=== PATIENT | female | born 1955 | race Caucasian/White ===

== ENCOUNTER 2024-12-09 13:14 | Inpatient (IN) | payer MEDICARE, SELFPAY ==
[2024-12-09] VITALS (20 sets, daily range): BP systolic 82–134; BP diastolic 33–97; PULSE 81–117; RESP 18–26; TEMP 36.6–37.1; O2SAT 95–100; BMI 25.2
--- NOTE | ~2024-12-09 | CT_ITS ---
EXAMINATION: CTA chest PE protocol DATE: 12/13/2024 16:33 CDT INDICATION: Intermediate probability for pulmonary embolus TECHNIQUE: Computed tomographic angiography (CTA) of the chest was performed with 100 mL Omnipaque-35 0 intravenous contrast. The dose-length product was 273.53 mGy-cm. Maximum intensity projection 3D-re constructions of the aorta and other arteries were constructed by the technologist on a separate work station. COMPARISON: None. Reference is made to a VQ scan dated 12/10/2024 as well as a noncontrast enhanced CT of the chest dated 12/09/2024 FINDINGS/OBSERVATIONS: PULMONARY ARTERIES: No filling defect is identified within the main or proximal pulmonary artery. The main pulmonary artery is not enlarged. THORACIC AORTA: No aneurysmal dilatation or dissection is present. The great vessels are intact LUNGS: Redemonstration of panlobular emphysematous disease. Interval increase in the right-sided pleural effusion with adjacent compressive consolidation (an int erval change from prior). The pleural-based mass within the periphery of the right mid to upper lung field enhances with intrav enous contrast demonstrating 20 Hounsfield units on noncontrast enhanced examination dated 12/09/2024 and 69 Hounsfield units on today's study. MEDIASTINUM: No morphologically suspicious or pathologically enlarged lymph nodes are identified with in the mediastinum or bilateral axilla. BONES OF THE CHEST: No acute fracture. Mild degenerative disease within the thoracic spine. No lytic or blastic lesions. HEART: The heart is enlarged, without pericardial effusion. Prosthetic valve in aortic position IMPRESSION: No pulmonary embolus. No thoracic aortic dissection. Interval increase in the right-sided pleural effusion, now with adjacent compressive consolidation (w ith air bronchograms) for which pneumonia is suspected. Redemonstration of the pleural-based mass within the right middle lobe, which enhances with intraveno us contrast. Redemonstration of panlobular emphysematous disease, without effusion or infiltrate in the left hemit horax. Reviewed, dictated and finalized at location A. IMPRESSION: No pulmonary embolus. No thoracic aortic dissection. Interval increase in the right-sided pleural effusion, now with adjacent compre ssive consolidation (with air bronchograms) for which pneumonia is suspected. Redemonstration of the pleural-based mass within the right middle lobe, which e nhances with intravenous contrast. Redemonstration of panlobular emphysematous disease, without effusion or infilt rate in the left hemithorax.
--- NOTE | ~2024-12-09 | US_ITS ---
BILATERAL LOWER EXTREMITY VENOUS ULTRASOUND Ordering provider: Saeid Penn MD History: . ? DVT . Comparison: None. FINDINGS: RIGHT LOWER EXTREMITY VEINS: --COMMON FEMORAL: Patent and free of thrombus. Normal compressibility, phasic flow and augmentation. --PROXIMAL SUPERFICIAL FEMORAL: Patent and free of thrombus. Normal compressibility, phasic flow and augmentation. --DISTAL SUPERFICIAL FEMORAL: Patent and free of thrombus. Normal compressibility, phasic flow and au gmentation. --POPLITEAL: Patent and free of thrombus. Normal compressibility, phasic flow and augmentation. --POSTERIOR TIBIAL: Patent and free of thrombus. Normal compressibility, phasic flow and augmentation . LEFT LOWER EXTREMITY VEINS: --COMMON FEMORAL: Patent and free of thrombus. Normal compressibility, phasic flow and augmentation. --PROXIMAL SUPERFICIAL FEMORAL: Patent and free of thrombus. Normal compressibility, phasic flow and augmentation. --DISTAL SUPERFICIAL FEMORAL: Patent and free of thrombus. Normal compressibility, phasic flow and au gmentation. --POPLITEAL: Patent and free of thrombus. Normal compressibility, phasic flow and augmentation. --POSTERIOR TIBIAL: Patent and free of thrombus. Normal compressibility, phasic flow and augmentation . IMPRESSION: Negative bilateral lower extremity venous US. No deep vein thrombosis. Reviewed, dictated and finalized at location A.
--- NOTE | ~2024-12-09 | US_ITS ---
EXAM: ABDOMEN ULTRASOUND HISTORY: RUQ pain COMPARISON: Reference is made to a CT examination of the chest, abdomen and pelvis performed 15 minut es earlier. FINDINGS: LIVER: The liver is increased in echogenicity and unremarkable in size measuring 14 cm in longitudina l dimension. The portal vein is patent, demonstrating hepatopedal flow. GALLBLADDER: No stones are identified within the gallbladder, which is otherwise unremarkable. No gallbladder wall thickening or pericholecystic fluid. BILE DUCTS: Common bile duct measures 3.4mm. PANCREAS: Limited evaluation of the pancreas secondary to overlying bowel gas IMPRESSION: Limited evaluation of pancreas secondary to overlying bowel gas. No evidence of cholecystitis or cholelithiasis, consistent with recent CT examination, performed on he same day. Reviewed, dictated and finalized at location A. IMPRESSION: Limited evaluation of pancreas secondary to overlying bowel gas. No evidence of cholecystitis or cholelithiasis, consistent with recent CT exami [facility], performed on the same day.
--- NOTE | ~2024-12-09 | CT_ITS ---
CLINICAL INDICATION: Right upper quadrant pain and hypotension COMPARISON: None. TECHNIQUE: Multiple contiguous axial images of the chest, abdomen and pelvis were performed without t he administration of intravenous contrast The dose-length product (DLP) was 356.23 mGy-cm. Automated exposure control and iterative reconstruction technique were employed. FINDINGS/OBSERVATIONS: LUNG: Panlobular emphysematous disease. Small right-sided pleural effusion. Honeycombing within the periphery of the right hemithorax along with a (likely) pleural-based mass wi thin the right middle lobe. MEDIASTINUM: Limited evaluation without intravenous contrast. HEART: The heart is enlarged, without pericardial effusion. Prosthetic valve in the aortic position. SOFT TISSUES OF THE CHEST: Unremarkable. Bones of the chest: No significant degenerative disease. No acute fractures. Liver: The liver demonstrates homogeneous attenuation and is not enlarged measuring 14 cm in longitudinal di mension. Gallbladder and biliary system: The gallbladder is only minimally distended, and otherwise unremarkable. Pancreas: Limited evaluation of the pancreas secondary to the lack of intravenous contrast. Spleen: The spleen demonstrates homogeneous attenuation and is not enlarged measuring 9 cm in longitudinal di mension. Kidneys: The bilateral kidneys are unremarkable, without hydronephrosis or renal calculi. Adrenal glands: Unremarkable. Gastrointestinal tract: Colonic diverticulosis without surrounding inflammatory change. Appendix: The air-filled appendix is of normal caliber (axial series, images 183 through 204). Vasculature: Densely calcified atherosclerotic disease. Lymph nodes: Limited evaluation without intravenous contrast. Pelvic structures: The bladder is distended, and otherwise unremarkable. The uterus is anteverted and anteflexed, and otherwise unremarkable. Body wall and musculoskeletal: Small fat-containing umbilical hernia. No significant degenerative disease within the lower thoracic or lumbosacral spine. IMPRESSION: Panlobular emphysematous disease. Findings within the right mid to lower lung field for which a pleural-based mass is suspected. Small right-sided pleural effusion is also noted. No acute pathology within the abdomen or pelvis. Reviewed, dictated and finalized at location A. IMPRESSION: Panlobular emphysematous disease. Findings within the right mid to lower lung field for which a pleural-based mas s is suspected. Small right-sided pleural effusion is also noted. No acute pathology within the abdomen or pelvis.
--- NOTE | ~2024-12-09 | XR_ITS ---
CHEST RADIOGRAPH CLINICAL HISTORY: pneumonia . COMPARISON: 12/09/2024 TECHNIQUE: Single portable view of the chest. FINDINGS Prosthetic valve in the aortic position. The remainder of the cardiomediastinal silhouette is otherwise unremarkable. Interval development of a right-sided pleural effusion, not present on the 12/09 examination for which a parapneumonic effusion is suspected. Worsening airspace disease within the right mid to lower lung field when compared with previous study for which worsening pneumonia is suspected. Coarse interstitial lung markings are detected throughout the remainder of the chest, likely chronic. IMPRESSION: Interval development of a right-sided parapneumonic effusion with interval worsening of the airspace disease within the right mid to lower lung field. Reviewed, dictated and finalized at location A. IMPRESSION: Interval development of a right-sided parapneumonic effusion with interval wors ening of the airspace disease within the right mid to lower lung field.
--- NOTE | ~2024-12-09 | NM_ITS ---
EXAMINATION: NM lung vent and perfusion DATE: 12/10/2024 14:54 INDICATION: Tachycardia and hypoxia TECHNIQUE: 17.3 mCi xenon-133 by inhalation and 5.5 mCi Tc-99m MAA by intravenous route. Scintigraph ic images of the chest were obtained. COMPARISON: Chest radiograph and CT dated 12/09/2024 FINDINGS: There is matched asymmetric decreased activity throughout the right lung on the posterior ventilation and perfusion images secondary to attenuation of activity resulting from a small posterior layering right pleural effusion which can be seen on the prior CT. There is decreased activity along both the major fissures with moderate-sized perfusion defects along the posterior segments of the bilateral up per lobes with corresponding airspace consolidation on the right on the prior CT. Additional small pe rfusion defect with associated consolidation at the lateral basilar segment of the right lower lobe a nd without evident airspace disease on the prior CT at the left lung base. IMPRESSION: 1. Intermediate probability for pulmonary embolism. 2. Small bilateral pleural effusions, right greater than left 3. Diffuse bilateral decreased washout of activity on the ventilation images consistent with obstruct reza pulmonary disease. Reviewed, dictated and finalized at location A. IMPRESSION: 1. Intermediate probability for pulmonary embolism. 2. Small bilateral pleural effusions, right greater than left 3. Diffuse bilateral decreased washout of activity on the ventilation images co nsistent with obstructive pulmonary disease.
--- NOTE | ~2024-12-09 | CT_ITS ---
EXAMINATION: CT brain wo con DATE: 12/17/2024 13:22 INDICATION: Lung cancer staging TECHNIQUE: Computed tomography (CT) of the head was performed without intravenous contrast. Sagittal and coronal reconstructions were performed. The mA was adjusted according to patient size. Iterative reconstruction technique was employed. The dose-length product was 605.33 mGy-cm. COMPARISON: None FINDINGS: No acute intracranial hemorrhage, acute infarction or abnormal extra axial fluid collection. Mild sca ttered periventricular predominant white matter hypoattenuation consistent with chronic small vessel ischemic disease. Ventricles are normal and symmetric. No mass/mass effect. The orbits, paranasal sin uses and mastoid air cells are normal. IMPRESSION: 1. Mild scattered periventricular predominant white matter hypoattenuation consistent with chronic sm all vessel ischemic disease. Of note assessment for metastatic disease is significantly limited in th e absence of contrast. Reviewed, dictated and finalized at location B. IMPRESSION: 1. Mild scattered periventricular predominant white matter hypoattenuation cons istent with chronic small vessel ischemic disease. Of note assessment for metas tatic disease is significantly limited in the absence of contrast.
--- NOTE | ~2024-12-09 | XR_ITS ---
[id number] Ordering provider: Saeid Penn MD History: 69 years Female with . ?pneumothorax . Comparison: None. FINDINGS: MEDIASTINUM: The cardiac silhouette is not enlarged. Prosthesis is seen in the aortic valve. Right PICC line with the tip in the axillary area. LUNGS: No effusions or pneumothorax. Ossification in both lower lobes and right upper lobe is seen marks ggestive of pneumonia. Underlying fibrotic and emphysematous changes are noted. OTHER: No free air under the diaphragm. Degenerative changes of the spine. IMPRESSION: Bilateral pneumonia. Underlying fibrotic/emphysematous changes Reviewed, dictated and finalized at location A.
--- NOTE | ~2024-12-09 | XR_ITS ---
XR chest 1V portable Ordering provider: Evelyn Sheets MD History: 69 years Female with . sob . Comparison: None. FINDINGS: MEDIASTINUM: The cardiac silhouette is not enlarged. Aortic valve prosthesis. Prominent dann. LUNGS: No effusions or pneumothorax. Opacification the right upper and lower lobe and left lower lobe . Underlying interstitial thickening. OTHER: No free air under the diaphragm. Degenerative spine. IMPRESSION: Bilateral pneumonia. Underlying fibrotic/emphysematous Changes. Reviewed, dictated and finalized at location A.
--- NOTE | ~2024-12-09 | US_ITS ---
EXAMINATION: US thoracentesis DATE: 12/14/2024 12:11 INDICATION: pleural effusion TECHNIQUE: The procedure and its risks, benefits, and alternatives were discussed with the patient. P otential risks discussed included bleeding, infection, and pneumothorax. The patient understood the r isks and agreed to proceed. The skin was prepped and draped in sterile fashion. 1% lidocaine was used for local anesthesia. Under ultrasound guidance, a 5 Fr catheter with trochar was advanced into the right pleural effusion. Fluid was aspirated. The catheter was removed, and a dressing was applied. Th ere were no immediate complications. FINDINGS: Ultrasound images demonstrate a right pleural effusion and the catheter within the fluid. IMPRESSION: 1. Successful ultrasound-guided thoracentesis yielding 500 mL of yellow fluid. Reviewed, dictated and finalized at location A.
[2024-12-09 13:59] LABS: Basophils Absolute Auto 0.1 K/mm3 (0.0-0.1); Basophils Percent Auto 0.5 % (0.2-1.2); Eosinophils Percent Auto 0.2 % (0-4.4); Hematocrit 27.9 % (37.0-47.0); Hemoglobin 7.6 g/dL (12.0-15.0); Immature Granulocyte Absolute 0.09 K/mm3 (0.00-0.031); Immature Granulocyte Percent A 0.5 % (0-0.5); Immature Platelet Fraction Pct 6.5 % (0.9-11.2); Lymphocytes Absolute Auto 0.76 K/mm3 (0.9-3.2); Lymphocytes Percent Auto 4.5 % (18.3-44.2); Mean Corpuscular HGB Conc 27.2 g/dl (32-36); Mean Corpuscular Hemoglobin 22.1 pg (26-34); Mean Corpuscular Volume 81.1 fl (80-100); Mean Platelet Volume 10.5 fl (7.4-10.4); Monocytes Absolute Auto 1.3 K/mm3 (0.1-0.6); Monocytes Percent Auto 7.7 % (2.6-8.5); Neutrophils Absolute Auto 14.7 K/mm3 (1.3-6.7); Neutrophils Percent Auto 86.6 % (45.5-73.1); Platelet Count Result 361 k/mm3 (150-375); Red Blood Count 3.44 M/mm3 (4.2-5.4); Red Cell Distribution Width 18.8 % (11.5-14.5)
[2024-12-09] MEDS: SODIUM CHLORIDE 0.9% IV 1,000 ML 999 ML IV CONT ×3 (14:07→16:49)
[2024-12-09 14:08] LABS: Platelet Estimate Adequate (Adequate)
[2024-12-09 14:09] LABS: Anisocytosis 1+; Hypochromasia 2+; Schistocytes None Seen
[2024-12-09 14:11] LABS: Alanine Aminotransferase 13 U/L (6-35); Albumin Level 3.7 g/dL (3.5-5.1); Alkaline Phosphatase 74 U/L (38-126); Anion Gap 10 mmol/L (4-12); Aspartate Amino Transferase 21 U/L (14-36); Bilirubin,Total 0.6 mg/dL (0.2-1.3); Blood Urea Nitrogen 29 mg/dL (7-17); Calcium 10.4 mg/dL (8.4-10.2); Carbon Dioxide 30 mmol/L (22-30); Chloride 98 mmol/L (98-107); Estimated CRCL calculation 38 ml/min; Estimated Glomerular Filt Rate 53; Glucose 258 mg/dL (65-110); Potassium 4.4 mmol/L (3.4-5.0); Sodium 138 mmol/L (137-145)
[2024-12-09 14:24] LABS: INR 1.1; Prothrombin Time 14.5 Seconds (11.1-14.7)
[2024-12-09 14:25] LABS: Partial Thromboplastin Time 32.6 Seconds (22.3-36.8)
--- NOTE | 2024-12-09 15:54 | ED_ITS ---
HPI - Syncope General Chief Complaint: Syncope Stated Complaint: near syncope Time Seen by Provider: 12/09/24 13:52 Source: patient and RN notes reviewed Mode of arrival: EMS Limitations: no limitations History of Present Illness HPI narrative: Patient presents with complaint of near syncope. She became dizzy while/after having a bowel movement. She has a history of GI bleed / bleeding ulcers. She denies being on anticoagulation however she has been taking Excedrin given she has chronic headaches/migraines, though she knows she shouldn't. She is also complaining of right upper quadrant abdominal pain that radiates to her back. She feels short of breath although she states a degree this is chronic in the setting of her COPD for which she wears 3 L supplemental oxygen via nasal cannula at baseline. History of aortic valve replacement (TAVR) 2 years ago. Denies drinking alcohol. History of EGD and a history of laparoscopic surgery as well as Caesarean section. She denies any frankly bloody bowel movements although has stated that they had been black diarrhea. No prior cholecystectomy. BP for EMS was 70/30. Has been coughing up green sputum. She states she became diaphoretic but denies any chest pain. She has been weak. Related Data Home Medications ?Medication ?Instructions ?Recorded ?Confirmed ?Last Taken ?Type ferrous sulfate 137 mg (45 mg mg PO BID 01/06/24 Unknown History iron) tablet,extended release (Slow Fe) Allergies Allergy/AdvReac Type Severity Reaction Status Date / Time IVP Dye Allergy Unknown unknown Uncoded 01/03/24 11:12 [facility] Past Medical History Medical History (Updated 12/09/24 @ 21:26 by Evelyn Sheets MD) History of blood transfusion History of bleeding ulcers History of GI bleed Seasonal allergies Tension headache Depression Impacted cerumen of both ears O2 dependent Cervicalgia Low back pain Stomach ulcer COPD (chronic obstructive pulmonary disease) HTN (hypertension) Heart disease Migraines Anxiety Anemia Surgical History Surgical History History of laparoscopy History of esophagogastroduodenoscopy (EGD) H/O aortic valve replacement TAVR ([facility]) 2022 History of 1980 Family History Family History (Updated 01/03/24 @ 11:04 by Gamal Dunaway [facility]) Father Alcoholism Heart disease Grandparent Carcinoma of colon Social History Social History Years smoked: 50 Smoking status: Former smoker Tobacco type: cigarettes Smoking end date: 09/23/23 Alcohol intake: former Substance use: never Exam 2 Narrative: GENERAL: Thin, pale, in mild acute distress. HEAD: Normocephalic, atraumatic. EYES: Non injected, non icteric. Conjunctival pallor. ENT: Nares clear, no rhinorrhea or epistaxis. NECK: Supple. CHEST: Speaking in full sentences. No respiratory distress at the time of my exam. Mild wheezes bilaterally. NC in place on home settings. HEART: Regular rate and rhythm. . ABDOMEN: Soft, nondistended. No rigidity or guarding. Not peritoneal. YADIEL: Normal rectal tone. Slightly dark stool appreciated on gloved finger. FOBT/guiaic positive. EXTREMITIES: Normal range of motion. No lower extremity edema. SKIN: Warm, dry, no rash. NEURO: No focal deficits. Alert and oriented x3. PSYCH: Normal mood and affect. Course Vital Signs Vital signs: Vital Signs Pulse Rate 91 12/09/24 13:21 Respiratory Rate 26 H 12/09/24 13:21 Blood Pressure 82/53 L 12/09/24 13:21 Pulse Oximetry 97 12/09/24 13:21 Oxygen Delivery Nasal Cannula 12/09/24 13:21 Oxygen Flow Rate 3 12/09/24 13:21 Temperature 98.3 F 12/09/24 20:29 Pulse Rate 116 H 12/09/24 20:29 Respiratory Rate 19 12/09/24 20:29 Blood Pressure 134/72 12/09/24 20:29 Pulse Oximetry 99 12/09/24 20:29 Oxygen Delivery Nasal Cannula 12/09/24 13:32 Oxygen Flow Rate 3 12/09/24 13:32 MDM - Syncope MDM Narrative Medical decision making narrative: The patient is a 69 year old who comes to the emergency department with near syncope and report of black diarrhea. History of GI bleed and bleeding ulcers. Associated with RUQ abdominal pain having shortness of breath, coughing up greeen sputum. In the ED they are initially afebrile and, without tachycardia but with tachypnea and hypotension. Requested RN place 2 large bore IVs and start 2L IVF boluses. Ordered CBC, CMP, coagulation studies, lactate, and type and screen. FOBT - possible false positive given she takes iron supplementation however she is quite anemic and with history of GIB. Her abdominal pain may be due to this versus secondary to infection - Patient has evidence of bilateral pneumonia on chest x-ray in addition to her known emphysema. Ceftriaxone and azithromycin ordered. Hyperglycemia without anion gap acidosis. BNP elevated, approaching level that would support acute heart failure given reference range of assay for patient's age. Troponin normal. History of NSAID usage and description of possible melena favors upper GI B If so, Austin-Blatchford bleeding score: at least 14 points (though questionably higher given not true syncope but instead near syncope and equivocal heart failure) Based on patient's Hgb, BUN, initial SBP, sex, heart rate, presence/absence of melena, syncope, hepatic disease, cardiac failure A GBS greater than zero suggests a ?High Risk? GI bleed that is likely to require ?medical intervention?: transfusion, endoscopy, or surgery. A higher GBS also correlated with a higher likelihood of needing intervention (scores >= are associated with >50% risk of needing intervention) Versus for lower GI bleed: Bessemer Score (predicts readmission risk in patients with acute lower GI bleeding) Based on age, sex, previous lower GI bleed admission, YADIEL findings, HR, SBP, and initial Hgb: 27 points 11-16?% Probability of safe discharge (absence of rebleeding, blood transfusion, therapeutic intervention, 28 day readmission, or ). Discharge NOT recommended. Consider admission with further workup and resuscitation as necessary. Lactic acid normal. Discussed with GI Dr Strickland. Aware we Will be admitting. Repeat Hemoglobin <7. Blood product transfusion I have discussed the proposed blood product transfusion with the patient. I have informed the patient regarding potential risks of blood product transfusion which, though rare, include transfusion reaction, hepatitis, and HIV. The patient has been given the opportunity to ask questions about the need to be transfused and possible outcomes of not receiving this treatment. Patient has verbally agreed to undergo transfusion. Nurse will obtain signed consent and place it in the patient's chart. Order was placed for transfusion of 1 unit of packed red blood cells. She has received blood transfusion multiple times previously she reports. Discussed with tanning consultant hospitalist BOO Duncan. IMU admission given initial hemodynamics although has BP improved after IV fluid hydration alone thus far. ====== Critical Care: 1 or more vital organ systems impaired with a high probability of imminent or life-threatening deterioration in the patient's condition requiring frequent personal assessment and manipulation of the patient's condition. This included time spent evaluating the patient, reviewing EMS pre- hospital personnel verbal report per quarry supervisor dimension stone; , reviewing/interpreting laboratory/imaging studies, discussing the case with consultants or admitting teams, retrieving data and reviewing charts, monitoring for decompensation, documenting the visit, and performing bundled procedures exclusive of separately billed procedures. Differential Diagnosis Differential diagnosis: Likely syncope due to orthostatic hypotension, vasovagal syncope, complete atrioventricular block, pulmonary embolism (considered - though other etiologies more likely - patient has allergy to contrast dye), dehydration and other (colon cancer, GI bleed (de lele versus secondary to gastritis/ulcer/medication side effect); considered false positive; IBD/infectious diarrhea/colitis; considered PNA; COPD exacerbation; viral syndrome; hypovolemia; symptomatic anemia; pancreatitis; pleural effusion; gastritis; biliary/cholangitis) Lab Data Attestation: I reviewed the patient's lab results. 12/09/24 17:48 12/09/24 13:38 Labs: Lab Results 12/09/24 12/09/24 12/09/24 Range/Units 13:38 14:00 16:14 WBC 17.0 H (4.5-10.0) K/mm3 RBC 3.44 L (4.2-5.4) M/mm3 Hgb 7.6 L (12.0-15.0) g/dL Hct 27.9 L (37.0-47.0) % MCV 81.1 (80-100) fl MCH 22.1 L (26-34) pg MCHC 27.2 L (32-36) g/dl RDW 18.8 H (11.5-14.5) % Plt Count 361 (150-375) k/mm3 MPV 10.5 H (7.4-10.4) fl Immature Gran % (Auto) 0.5 (0-0.5) % Neut % (Auto) 86.6 H (45.5-73.1) % Lymph % (Auto) 4.5 L (18.3-44.2) % Brown % (Auto) 7.7 (2.6-8.5) % Eos % (Auto) 0.2 (0-4.4) % Baso % (Auto) 0.5 (0.2-1.2) % Lymph # (Auto) 0.76 L (0.9-3.2) K/mm3 Brown # (Auto) 1.3 H (0.1-0.6) K/mm3 Eos # (Auto) 0.0 (0-0.3) K/mm3 Baso # (Auto) 0.1 (0.0-0.1) K/mm3 Abs Immat Gran (auto) 0.09 H (0.00-0.031) K/mm3 Absolute Neuts (auto) 14.7 H (1.3-6.7) K/mm3 Absolute Nucleated RBC 0.000 (0.0-0.012) K/mm3 Band Neutrophils % Not Reportable Nucleated RBC % 0.0 (0.0-0.2) % Platelet Estimate Adequate (Adequate) % Immature Plt Fraction 6.5 (0.9-11.2) % Hypochromasia 2+ Anisocytosis 1+ Schistocytes None seen PT 14.5 (11.1-14.7) Seconds INR 1.1 APTT 32.6 (22.3-36.8) Seconds Sodium 138 (137-145) mmol/L Potassium 4.4 (3.4-5.0) mmol/L Chloride 98 (98-107) mmol/L Carbon Dioxide 30 (22-30) mmol/L Anion Gap 10 (4-12) mmol/L BUN 29 H (7-17) mg/dL Creatinine 1.04 H (0.7-1.0) mg/dL Estim Creat Clear Calc 38 ml/min Estimated GFR 53 L (59 - ) Glucose 258 H (65-110) mg/dL Lactic Acid (0.7-2.0) mmol/L Calcium 10.4 H (8.4-10.2) mg/dL Total Bilirubin 0.6 (0.2-1.3) mg/dL AST 21 (14-36) U/L ALT 13 (6-35) U/L Alkaline Phosphatase 74 (38-126) U/L Troponin I < 0.012 (0.000-0.034) ng/mL NT-Pro-B Natriuret Pep 829 H (19.9-100) pg/mL Total Protein 7.0 (6.3-8.2) g/dL Albumin 3.7 (3.5-5.1) g/dL Lipase 33 (23-300) U/L Influenza A (RT-PCR) (Negative) Influenza B (RT-PCR) (Negative) RSV (RT-PCR) (Negative) SARS-CoV-2 RNA (RT-PCR) (Negative) Blood Type O Positive Antibody Screen Negative Crossmatch See Detail 12/09/24 12/09/24 Range/Units 17:47 17:48 WBC (4.5-10.0) K/mm3 RBC (4.2-5.4) M/mm3 Hgb 6.7 L* (12.0-15.0) g/dL Hct 24.5 L (37.0-47.0) % MCV (80-100) fl MCH (26-34) pg MCHC (32-36) g/dl RDW (11.5-14.5) % Plt Count (150-375) k/mm3 MPV (7.4-10.4) fl Immature Gran % (Auto) (0-0.5) % Neut % (Auto) (45.5-73.1) % Lymph % (Auto) (18.3-44.2) % Brown % (Auto) (2.6-8.5) % Eos % (Auto) (0-4.4) % Baso % (Auto) (0.2-1.2) % Lymph # (Auto) (0.9-3.2) K/mm3 Brown # (Auto) (0.1-0.6) K/mm3 Eos # (Auto) (0-0.3) K/mm3 Baso # (Auto) (0.0-0.1) K/mm3 Abs Immat Gran (auto) (0.00-0.031) K/mm3 Absolute Neuts (auto) (1.3-6.7) K/mm3 Absolute Nucleated RBC (0.0-0.012) K/mm3 Band Neutrophils % Nucleated RBC % (0.0-0.2) % Platelet Estimate (Adequate) % Immature Plt Fraction (0.9-11.2) % Hypochromasia Anisocytosis Schistocytes PT (11.1-14.7) Seconds INR APTT (22.3-36.8) Seconds Sodium (137-145) mmol/L Potassium (3.4-5.0) mmol/L Chloride (98-107) mmol/L Carbon Dioxide (22-30) mmol/L Anion Gap (4-12) mmol/L BUN (7-17) mg/dL Creatinine (0.7-1.0) mg/dL Estim Creat Clear Calc ml/min Estimated GFR (59 - ) Glucose (65-110) mg/dL Lactic Acid 0.8 (0.7-2.0) mmol/L Calcium (8.4-10.2) mg/dL Total Bilirubin (0.2-1.3) mg/dL AST (14-36) U/L ALT (6-35) U/L Alkaline Phosphatase (38-126) U/L Troponin I (0.000-0.034) ng/mL NT-Pro-B Natriuret Pep (19.9-100) pg/mL Total Protein (6.3-8.2) g/dL Albumin (3.5-5.1) g/dL Lipase (23-300) U/L Influenza A (RT-PCR) Negative (Negative) Influenza B (RT-PCR) Negative (Negative) RSV (RT-PCR) Negative (Negative) SARS-CoV-2 RNA (RT-PCR) Negative (Negative) Blood Type Antibody Screen Crossmatch Imaging Data Radiologist's impression: Impressions Chest X-Ray 12/09/24 16:39 IMPRESSION: Bilateral pneumonia. Underlying fibrotic/emphysematous Changes. Chest/Abdomen/Pelvis CT 12/09/24 17:27 IMPRESSION: Panlobular emphysematous disease. Findings within the right mid to lower lung field for which a pleural-based mass is suspected. Small right-sided pleural effusion is also noted. No acute pathology within the abdomen or pelvis. Abdomen Ultrasound 12/09/24 18:06 IMPRESSION: Limited evaluation of pancreas secondary to overlying bowel gas. No evidence of cholecystitis or cholelithiasis, consistent with recent CT examination, performed on the same day. Critical Care Time Critical Care Time Critical Care Time: Yes Total Critical Care Time: 45 Discharge Plan Discharge Clinical Impression: Fecal occult blood test positive, Emphysema lung, Near syncope, Mass of right lung, GIB (gastrointestinal bleeding), Dark stools, Pneumonia, Abdominal pain Patient Disposition: Still a Patient Condition: Stable
--- OUTSIDE RECORDS SUMMARY | 2024-12-09 16:26 | XMS_ITS | Clinical Summary ---
Author Organization [facility] Address [facility] [place] [address] Care Team Providers Care Pcas Name Role Phone Raya Merlos Primary Care Provider [phone] Allergies Active Allergy Reactions Criticality Noted Date Comments Iodine Shortness of Breath High 02/24/2023 Medications omeprazole (PRILOSEC) 40 MG capsule Take 1 capsule (40 mg total) by mouth 2 (two) times a day. Active ferrous sulfate CR (SLOW FE) 142 (45 Fe) MG Tab CR tablet Take 1 tablet (142 mg total) by mouth daily. Active cyclobenzaprine (FLEXERIL) 10 MG tablet Take 1 tablet (10 mg total) by mouth nightly. Active lisinopril (PRINIVIL) 5 MG tablet Take 1 tablet (5 mg total) by mouth daily. 30 tablet 1 3 Active metoprolol tartrate (LOPRESSOR) 25 MG tablet Take 0.5 tablets (12.5 mg total) by mouth 2 (two) times daily. 60 tablet 1 3 Active nitroglycerin (NITROSTAT) 0.[address] 1 tablet (0.4 mg total) under the tongue every 5 (five) minutes as needed for Chest Pain. 30 tablet 3 Active butalbital-acet aminophen-caffe ine (FIORICET) 50-300-40 MG capsule Take 1 capsule by mouth every 4 (four) hours as needed for Headaches. 30 capsule 3 Active Additional Information Patient not taking.Reason: pt out of meds, Reported on 03/21/2023 HYDROcodone-haylie taminophen (NORCO) 5-325 MG tabletIndicatio ns:Acute Pain < 3 Day Supply Take 1 tablet by mouth every 6 (six) hours as needed for Pain. Indications: Acute Pain < 3 Day Supply 10 tablet 3 Active amitriptyline (ELAVIL) 25 MG tablet Take 1 tablet (25 mg total) by mouth nightly at bedtime. Just started yesterday Active Active Problems Problem Noted Date Diagnosed Date Chest pain 03/21/2023 Severe aortic valve stenosis 03/06/2023 Assessment & Plan (03/15/2023 9:49 AM CDT): She is status post transcarotid transcatheter aortic valve replacement. She will need a 1 month echocardiogram. She will follow-up with cardiothoracic surgery regarding her carotid incision. She needs antibiotic prophylaxis prior to dental procedures. Anemia 02/25/2023 Assessment & Plan (03/15/2023 9:49 AM CDT): She is found to have AVMs on GI evaluation and likely secondary to aortic stenosis. Continue to hold aspirin. Chest pain with low risk of acute coronary syndr ome 02/24/2023 Occult blood positive stool 02/24/2023 Overview (02/26/2023): Added automatically from request for surgery [id number] Iron deficiency anemia 11/09/2022 Acute blood loss anemia 07/18/2022 Upper GI bleed 07/18/2022 Atherosclerosis of aorta 09/25/2019 Overview (03/08/2023): 12.31.19 CT Abdomen & Pelvis Atherosclerotic nonaneurysmal abdominal aorta Generalized anxiety disorder 08/10/2014 Low back pain 08/10/2014 Overview (03/08/2023): OA (osteoarthritis) 08/10/2014 Pulmonary emphysema ([facility]HCC) 08/10/2014 Overview (03/08/2023): Family History Medical History Relation Comments Coronary artery disease Brother Coronary artery disease Father Relation Status Comments Brother Father Social History Tobacco Use Types Packs/Day Years Used Date Smoking Tobacco: Former Cigarettes Q uit: 09/23/2022 Smokeless Tobacco: Never Alcohol Use Standard Drinks/Week Comments Never 0 (1 standard drink = 0.6 oz pur e alcohol) Humiliation, Afraid, Rape, and Kick questionnair e Answer Date Recorded Within the last year, have y ou been afraid of your partner or ex-partner? No 03/21/2023 Within the last year, have y ou been humiliated or emotionally abused in other ways by your partner or ex-partner? No Within the last year, have y ou been kicked, hit, slapped, or otherwise physically hurt by your partner or ex-partner? No 03/21/2023 Within the last year, have y ou been raped or forced to have any kind of sexual activity by your partner or ex-partner? No 03/21/2023 Social Connection and Isolat ion Panel [NHANES] Answer Date Recorded In a typical week, how many times do you talk on the phone with family, friends, or neighbors? More than three times a week 03/21/2023 How often do you get togethe r with friends or relatives? Once a week 03/21/2023 How often do you attend chur ch or sabianist services? Never 03/21/2023 Do you belong to any clubs o r organizations such as mosque groups, unions, fraternal or athletic groups, or school groups? No 03/21/2023 How often do you attend meet ings of the clubs or organizations you belong to? Never 03/21/2023 Are you , , di vorced, , never , or living with a partner? 03/21/2023 AUDIT-C Answer Date Recorded Q1: How often do you have a drink containing alcohol? Never 03/21/2023 Q2: How many drinks containi ng alcohol do you have on a typical day when you are drinking? Patient does not drink Q3: How often do you have si x or more drinks on one occasion? Never 03/21/2023 Overall Financial Resource Strain (CARDIA) Answe r Date Recorded How hard is it for you to pa y for the very basics like food, housing, medical care, and heating? Not hard at all 03/21/2023 PHQ-2 Answer Date Recorded Patient Health Questionnaire-2 Score 0 03/21/2023 [facility] [place] [facility] Occupat ional [facility] - Occupational Stress Questionnaire Answer Date Recorded Do you feel stress - tense, restless, nervous, or anxious, or unable to sleep at night because your mind is troubled all the time - these days? Not at all 03/21/2023 Exercise Vital Sign Answer Date Recorde d On average, how many days pe r week do you engage in moderate to strenuous exercise (like a brisk walk)? 0 days 03/21/2023 On average, how many minutes do you engage in exercise at this level? 0 min 03/21/2023 Hunger Vital Sign Answer Date Recorded Within the past 12 months, y ou worried that your food would run out before you got the money to buy more. Never true 03/21/20 23 Within the past 12 months, t he food you bought just didn't last and you didn't have money to get more. Never true 03/21/2023 PRAPARE - Transportation Answer Date Re corded In the past 12 months, has l ack of transportation kept you from medical appointments or from getting medications? No 02/22 In the past 12 months, has l ack of transportation kept you from meetings, work, or from getting things needed for daily living? No 03/21/2023 Housing Stability Vital Sign Answer Esvin e Recorded In the last 12 months, was t here a time when you were not able to pay the mortgage or rent on time? No 03/21/2023 In the last 12 months, how many places have you lived? 1 03/21/2023 In the last 12 months, was t here a time when you did not have a steady place to sleep or slept in a mcc (including now)? No 03/21/2023 Comments No Sex and Gender Information Value Date Recorded Sex Assigned at Not on file Legal Sex Female 6:03 PM CDT Gender Identity Not on file Sexual Orientation Not on file Last Filed Vital Signs Vital Sign Reading Time Taken Comments Blood Pressure 91/53 03/22/2023 10:33 AM CDT Pulse 72 03/22/2023 10:33 AM CDT Temperature 36.4 C (97.5 F) 03/22/2023 10:33 AM CDT Respiratory Rate 18 03/22/2023 10:33 AM CDT Oxygen Saturation 100% 03/22/2023 10:33 AM CDT Inhaled Oxygen Concentration - - Weight 55.3 kg (122 lb) 03/22/2023 7:38 AM CDT Height 160 cm (5' 3 ) 03/21/2023 11:07 AM CDT Body Mass Index 21.61 03/21/2023 11:07 AM CDT Plan of Treatment Health Maintenance Due Date Last Done Comments ASCVD Statin 1957 Hepatitis C 1975 Mammogram Screening 1997 Zoster Vaccines (1 of 2) 2007 Pneumococcal Vaccine: 65+ Years (2 of 2 - PCV) 07/23/2013 07/23/2012 RSV Immunization or 60+ Years (1 - Risk 60-74 years 1-dose series) 2017 Annual Medicare Wellness Visit 2022 Dexa Scan (General) 2022 ASCVD LDL 02/25/2024 02/24/2023 Colorectal Cancer Screening FIT/FOBT (1 Year) 03/21/2024 03/21/2023, 02/24/2023 COVID-19 Vaccine (2 - 2023-2 5 season) 2024 03/29/2021 Influenza Adult (#1) 2024 09/20/2019, 07/09/2014 DTaP, Tdap and Td Vaccines ( 2 - Td or Tdap) 11/25/2029 11/26/2019 Meningococcal B Vaccine Aged Out No l onger eligible based on patient's age to complete this topic Meningococcal Vaccine Aged Out No jeannie chintan eligible based on patient's age to complete this topic RSV Immunizations Under 20 Months Aged Out No longer eligible b ased on patient's age to complete this topic Goals Goal Patient Goal Type Associated Problems Recent Progress Patient-Stated? Author Patient will return to prior living situation and remain independent in ADLs upon discharge from hospital Lifestyle No Sheyla Torres LSW Health - patient able to perform ADLs independently Lifestyle No John Bell, RN Medical Devices Implanted Type Area Hadoop Admin Device Identifier Shelf Expiration Date Model / Serial / Lot Aortic Valve ([employer]tr[employer]) Implant- [id number] Implanted:Qty: 1 on 03/06/2023 by Shahid Calderon MD Valve Implant Aorta [employer] 11/19/2024 [id number] / [id number] / Procedures Procedure Name Priority Date/Time Associated Diagnosis Comments OCCULT BLOOD, FECES STAT 03/21/2023 5 :30 PM CDT LIPID PANEL STAT 02/24/2023 10:45 AM CDT from Last 3 Months or Most Recently Relevant to Health Maintenance Results * OCCULT BLOOD, FECES (03/21/2023 5:30 PM CDT) OCCULT BLOOD FECAL POSITIVE 03/21/2023 6:30 PM CDT [facility] STOOL SPECIMEN / Unknown 03/21/2023 5:30 PM CDT us Wilbert BUENO BODY FLUIDS AND STOOLS ORD ERABLES Final Result [facility] [address] [id number], * (ABNORMAL) LIPID PANEL (02/24/2023 10:45 AM CDT) CHOLESTEROL 203(H) <200 MG/DL 02/24/2023 3:24 PM CDT [facility] TRIGLYCERIDES 75 <150 MG/DL 02/24/2023 3:24 PM CDT [facility] HDL 62 >40.0 MG/DL 02/24/2023 3:24 PM CDT [facility] LDL (CALCULATED) 126(H) <100 MG/DL 02/24/2023 3:24 PM CDT [facility] NON HDL CHOLESTEROL 141(H) <130 MG/DL 02/24/2023 3:24 PM CDT [facility] CHOL/HDL RATIO 3.3 0.0 - 4.5 02/24/2023 3:24 PM CDT [facility] VLDL CALCULATION 15 5 - 55 MG/DL 02/24/2023 3:24 PM CDT [facility] LIPID INTERPRETATION 02/24/2023 3:24 PM CDT [facility] Comment: [facility] CONCENSUS REPORT RECOMMENDATIONS: ADULT CHILD LOW RISK: CHOLESTEROL <200 <170 TRIGLYCERIDE <150 --- HDL >=60 --- LDL <100 <110 BORDERLINE: CHOLESTEROL 200-239 170-199 TRIGLYCERIDE 150-199 --- HDL 40-59 --- LDL 100-159 110-129 HIGH RISK: CHOLESTEROL >=240 >=200 TRIGLYCERIDE >=200 --- HDL <40 --- LDL >=160 >=130 02/24/2023 10:4 5 AM CDT Mckenzie Neil MD LABORATORY Final Result [facility] [address] [place] [address], from Last 3 Months or Most Recently Relevant to Health Maintenance Insurance MEDICARE Advance Directives * Full Code (Latest Code Status on File) Date Activated Date Inactivated Comments 03/21/2023 1:35 PM 03/22/2023 3:07 PM * Full Code Date Activated Date Inactivated Comments 03/06/2023 1:39 PM 03/07/2023 3:35 PM * Full Code Date Activated Date Inactivated Comments 03/06/2023 7:20 AM 03/06/2023 1:39 PM * Full Code Date Activated Date Inactivated Comments 02/24/2023 12:54 PM 03/01/2023 8:45 PM Care Teams Pcas Relationship Specialty Start Date End Date Raya Merlos PA [address] [place] [phone] PCP - General PHYSICIAN WRAP YARN SORTER 03/06/23
--- OUTSIDE RECORDS SUMMARY | 2024-12-09 16:26 | XMS_ITS | Clinical Summary ---
Author Organization [facility] Address [address] [place] [address] Care Team Providers Care Sound Effects Technician Name Role Phone Raya Merlos Primary Care Provider [phone] [facility],non-owned Affiliates and Associated Physician Practices is amultiple site organization consisting of ambulatory clinics and hospital sitesin [place], [place], [place] and [place]. This disclosure is being madepursuant to the Care Everywhere program and may not contain all information available regarding this patient. Last updated 18.[facility] Allergies Active Allergy Reactions Criticality Noted Date Comments Contrast-Iodinated Agents For Ct/Other Anaphylaxis High 08/01/2014 Medications * Be aware that medications may not be up to date on this document. Alwaysverify current medications with the patient. Medication Sig Dispensed Refills Start Date End Date Status albuterol (Proventil;Ventol in) (5 MG/ML) 0.5% nebulizer solution Take by nebulization every 6 (six) hours if needed for Wheezing or Shortness of Breath Active metoprolol tartrate IR (Lopressor) 25 MG tablet Take 0.5 (one-half) tablet by mouth 2 times daily 90 tablet 1 06/20/2023 Active HYDROcodone-aceta minophen (Yeso) 5-325 MG tabletIndications :Chronic pain of both shoulders Take 1 (one) tablet by mouth every 6 hours as needed 20 tablet 09/11/2023 Active lidocaine (Lidoderm) 5 % patch Apply 1 (one) patch to skin every 24 hours Apply patch to most painful area and remove after 12 hours. May reapply a new patch 12 hours later. 09/12/2023 Active nitrofurantoin monohyd macro crystals (Macrobid) 100 MG capsule Take 1 (one) capsule by mouth 2 times daily 09/11/2023 Active tiZANidine HCl 4 MG Take 4 mg by mouth once daily as needed 30 capsule 12/02/2023 Active omeprazole (PriLOSEC) 40 MG capsuleIndication s:Gastroesophagea l Reflux Disease Take 1 (one) capsule by mouth 2 times daily, before breakfast and supper Reasons: Gastroesophageal Reflux Disease 30 capsule 12/02/2023 Active lisinopril (Prinivil; Zestril) 5 MG tabletIndications :Essential hypertension Take 1 (one) tablet by mouth once daily 30 tablet 12/02/2023 Active Ferrous Sulfate (Slow Fe) 142 (45 Fe) MGIndications:Iro n deficiency anemia, unspecified iron deficiency anemia type Take 1 tablet by mouth once daily 30 tablet 12/02/2023 Active amitriptyline (Elavil) 25 MG tabletIndications :Chronic tension-type headache, not intractable Take 1 (one) tablet by mouth every evening 30 tablet 12/02/2023 Active Active Problems Problem Noted Date Diagnosed Date Anemia, unspecified type 09/05/2023 Incidental pulmonary nodule 09/05/2023 Iron deficiency anemia 11/09/2022 Upper GI bleed 07/18/2022 Atherosclerosis of aorta 09/25/2019 Overview (09/25/2019): 12.31.19 CT Abdomen & Pelvis Atherosclerotic nonaneurysmal abdominal aorta Pulmonary emphysema 08/10/2014 Overview (02/14/2015): Generalized anxiety disorder 08/10/2014 OA (osteoarthritis) 08/10/2014 Low back pain 08/10/2014 Overview (07/31/2015): Resolved Problems Problem Noted Date Diagnosed Date Resolved Date Acute gastric ulcer with hemorrhage 02/22/2021 02/22/2021 Severe anemia 02/17/2021 02/22/2021 Acute respiratory failure wi th hypoxia and hypercapnia 02/17/2021 02/22/2021 Chronic obstructive pulmonar y disease with acute exacerbation 02/17/2021 02/22/2021 Gastrointestinal hemorrhage 02/16/2021 02/22/2021 Cellulitis of face 09/19/2019 0 Acute respiratory failure 08/10/2014 Hypoxia 08/10/2014 11/25/2019 COPD exacerbation 08/06/2014 11/25/2019 Immunizations Name Administration Dates Next Due INFLUENZA VACCINE 07/09/2014 INFLUENZA VACCINE, ADJUVANTE D, QUADR. (FLUAD QUADRIVALENT; 65Y+) (AIIV4) 07/19/2022 INFLUENZA VACCINE, QUADR. (F LUZONE; FLULAVAL; FLUARIX; AFLURIA QUADRIVALENT; 6MO+), 0.5 ML (IIV4) 09/20/2019 PNEUMOCOCCAL PPSV23 07/23/2012 TDAP (7yrs+) 11/26/2019 Family History Medical History Relation Name Comments Heart Failure Brother Heart Failure Father Relation Name Status Comments Brother Father Social History Tobacco Use Types Packs/Day Years Used Date Smoking Tobacco: Former Cigarettes 1 20 Smokeless Tobacco: Never Tobacco Cessation:Counseling Given: Yes Alcohol Use Standard Drinks/Week Comments No 0 (1 standard drink = 0.6 oz pur e alcohol) AUDIT-C Answer Date Recorded Q1: How often do you have a drink containing alcohol? Never 09/04/2023 Q2: How many drinks containi ng alcohol do you have on a typical day when you are drinking? Patient does not drink Q3: How often do you have si x or more drinks on one occasion? Never 09/04/2023 Overall Financial Resource Strain (CARDIA) Answe r Date Recorded How hard is it for you to pa y for the very basics like food, housing, medical care, and heating? Patient unable to answer 09/05/2023 PHQ-2 Answer Date Recorded PHQ2 TOTAL SCORE 2 03/20/2023 [facility] Occupat ional Health - Occupational Stress Questionnaire Answer Date Recorded Do you feel stress - tense, restless, nervous, or anxious, or unable to sleep at night because your mind is troubled all the time - these days? Patient unable to answer 09/05/2023 Hunger Vital Sign Answer Date Recorded Within the past 12 months, y ou worried that your food would run out before you got the money to buy more. Patient unable to answer 09/05/2023 Within the past 12 months, t he food you bought just didn't last and you didn't have money to get more. Patient unable to answer 09/05/2023 PRAPARE - Transportation Answer Date Re corded In the past 12 months, has l ack of transportation kept you from medical appointments or from getting medications? Patient unable to answer 09/05/2023 In the past 12 months, has l ack of transportation kept you from meetings, work, or from getting things needed for daily living? Patient unable to answer 09/05/2023 Housing Stability Vital Sign Answer Esvin e Recorded In the last 12 months, was t here a time when you were not able to pay the mortgage or rent on time? Patient unable to answer 09/05/2023 In the last 12 months, how m any places have you lived? 1 09/05/2023 In the last 12 months, was t here a time when you did not have a steady place to sleep or slept in a care home (including now)? Patient unable to answer 09/05/2023 Sex and Gender Information Value Date Recorded Sex Assigned at Not on file Gender Identity Not on file Sexual Orientation Not on file Last Filed Vital Signs Vital Sign Reading Time Taken Comments Blood Pressure 90/57 09/11/2023 7:13 AM SCHOOL JANITOR Pulse 96 09/11/2023 7:13 AM SCHOOL JANITOR Temperature 36.9 C (98.4 F) 09/11/2023 7:13 AM SCHOOL JANITOR Respiratory Rate 18 09/10/2023 11:2 7 PM SCHOOL JANITOR Oxygen Saturation 98% 09/11/2023 7:13 AM SCHOOL JANITOR Inhaled Oxygen Concentration 50% 02/18/2021 8 :35 AM CDT Weight 53.5 kg (117 lb 15.1 oz) 09/06/2023 4:33 AM SCHOOL JANITOR Height 160 cm (5' 3 ) 09/05/2023 1:11 AM SCHOOL JANITOR Body Mass Index 20.89 09/05/2023 1:11 AM SCHOOL JANITOR Plan of Treatment Health Maintenance Due Date Last Done Comments BONE DENSITY TESTING 1955 COLOGUARD (AGES 45-75) - COLON CA SCREENING 1957 CT COLONOGRAPHY - COLON CA SCREENING 1955 FLEX SIG - COLON CA SCREENING 1955 MAMMOGRAM 1955 MEDICARE AWV 12 MONTHS 1957 HEPATITIS C SCREENING 06/14/1975 LUNG CANCER SCREENING 2007 ZOSTER VACCINE (1 of 2) 2007 PNEUMOCOCCAL VACCINE 50+ (2 of 2 - PCV) 07/23/2013 07/23/2012 Respiratory Syncytial Virus (RSV) Vaccine Pt: or over 60 yrs (1 - Risk 60-74 years 1-dose series) 2017 COVID-19 VACCINE (2 - season) 2024 03/29/2021 INFLUENZA VACCINE (#1) 2024 , 09/20/2019, 07/09/2014 FIT - COLON CA SCREENING 09/04/2024 023, 07/18/2022, 02/16/2021, Additional history exists DEPRESSION SCREENING 09/23/2024 11/09/2022 LIPID TESTING 02/25/2028 02/24/2023, 10/17/2022 COLON MONITORING 09/26/2029 09/26/2019 COLONOSCOPY - COLON CA SCREENING 09/26/2029 09/26/2019 Colorectal Cancer Screening 09/26/2029 DTAP/TDAP/TD VACCINES (2 - Td or Tdap) 11/25/2029 11/26/2019 HEPATITIS B VACCINE Aged Out No longe r eligible based on patient's age to complete this topic HIB VACCINE Aged Out No longer eligi ble based on patient's age to complete this topic HPV VACCINE Aged Out No longer eligi ble based on patient's age to complete this topic MENINGOCOCCAL (Group B) VACCINE SHARED DECISION-MAKING Aged Out No longer eligible based on patient's age to complete this topic MENINGOCOCCAL GROUPS A/C/Y/W VACCINE Aged Out No longer eligible based on patient's age to complete this topic Procedures Procedure Name Priority Date/Time Associated Diagnosis Comments OCCULT BLOOD FECES IMMUNOASSAY STAT 09/04/2023 10:00 PM SCHOOL JANITOR from Last 3 Months or Most Recently Relevant to Health Maintenance Results * OCCULT BLOOD FECES IMMUNOASSAY (09/04/2023 10:00 PM SCHOOL JANITOR) Pathologist [facility] Occult Blood Immunoassay Negative Negative 09/04/2023 10:17 PM SCHOOL JANITOR [facility] Stool STOOL SPECIMEN / Unknown Collection / Unknown 09/04/2023 10:00 PM SCHOOL JANITOR 09/04/2023 10:05 PM SCHOOL JANITOR Monet Graham MD LAB - MICROBIOLO GY ORDERABLES [facility] [address] from Last 3 Months or Most Recently Relevant to Health Maintenance Additional Health Concerns Infection Onset Date Last Indicated ESBL GNR Comment:Urine 09/08/23; 09/08/2023 09/08/2023 Advance Directives * Full Code (Latest Code Status on File) Date Activated Date Inactivated Comments 09/05/2023 1:08 AM 09/11/2023 3:07 PM * Full Code Date Activated Date Inactivated Comments 02/16/2021 11:24 PM 02/22/2021 7:04 PM * Full Code Date Activated Date Inactivated Comments 09/19/2019 4:11 PM 09/26/2019 5:40 PM * Full Code Date Activated Date Inactivated Comments 01/31/2017 3:54 PM 02/07/2017 3:46 AM * Full Code Date Activated Date Inactivated Comments 08/05/2014 8:17 PM 08/11/2014 11:23 AM Care Teams Sound Effects Technician Relationship Specialty Start Date End Date Raya Merlos PA [address] [place] [address] PCP - General Physician Caddymaster 02/23/21
--- OUTSIDE RECORDS SUMMARY | 2024-12-09 16:26 | XMS_ITS | Clinical Summary ---
Author Organization [facility] Address [address] [place] [address] Phone Care Team Providers Care Electronic Plotting System Operator Name Role Phone Usaam Jc MD Unavailable [phone] Monet Graham MD Primary Care Provider + Allergies Active Allergy Reactions Criticality Noted Date Comments Iodinated Contrast Media Anaphylaxis High 08/01/2014 Medications albuterol (PROVENTIL, VENTOLIN) (5 MG/ML) 0.5% Nebulizer Soln Take by nebulization every 6 (six) hours if needed for Wheezing or Shortness of Breath Active omeprazole (PriLOSEC) 40 MG CAPSULE DELAYED RELEASE Take 40 mg by mouth daily. Active nicotine (NICODERM CQ) 14 MG/24HR PATCH 24 HR 1 Patch by Transdermal route every 24 hours. Active tiZANidine HCl 4 MG Capsule Take 4 mg by mouth daily as needed. Active Active Problems Problem Noted Date Diagnosed Date Anemia due to unknown mechanism 10/24/2022 Family History Medical History Relation Name Comments Heart Attack Brother Heart Disease Brother Heart Disease Father Liver Disease Father No Known Problems Mother Relation Name Status Comments Brother Father Mother Social History Tobacco Use Types Packs/Day Years Used Date Smoking Tobacco: Former Cigarettes 1 47 0 09/23/1975 - 09/23/2022 Smokeless Tobacco: Never Tobacco Cessation:Counseling Given: Not Answered Alcohol Use Standard Drinks/Week Comments Never 0 (1 standard drink = 0.6 oz pur e alcohol) Comments Unknown Sex and Gender Information Value Date Recorded Sex Assigned at Not on file Legal Sex Female 9:37 AM WIRE DRAWING DIE MAKER Gender Identity Not on file Sexual Orientation Not on file Last Filed Vital Signs Vital Sign Reading Time Taken Comments Blood Pressure 112/70 10/24/2022 3:09 PM WIRE DRAWING DIE MAKER Pulse 59 10/24/2022 3:09 PM WIRE DRAWING DIE MAKER Temperature 36.7 C (98.1 F) 10/24/2022 3:09 PM WIRE DRAWING DIE MAKER Respiratory Rate - - Oxygen Saturation 100% 10/24/2022 3:09 PM WIRE DRAWING DIE MAKER Inhaled Oxygen Concentration - - Weight 54 kg (119 lb) 10/24/2022 3:09 PM WIRE DRAWING DIE MAKER Height 160 cm (5' 3 ) 10/24/2022 3:09 PM WIRE DRAWING DIE MAKER Body Mass Index 21.08 10/24/2022 3:09 PM WIRE DRAWING DIE MAKER Plan of Treatment Health Maintenance Due Date Last Done Comments DEXA Bone Density 1955 Hepatitis C Virus (HCV) Screening 1955 Mammogram 1955 Colonoscopy 2002 Cologuard 2007 Zoster Immunization (1 of 2) 2007 Pneumococcal Immunization (5 0+ years) (2 of 2 - PCV) 07/23/2013 07/23/2012 Colorectal Cancer Screening 10/14/2022 Immunochemical Fecal Occult Blood 10/13/2023 10/13/2022 Influenza Immunization (#1) 05/24/202406/24, 09/20/2019, 07/09/2014 SARS-COV-2 Immunization (2 - season) 2024 03/29/2021 Respiratory Syncytial Virus (RSV) Immunization (Adult) (1 - 1-dose 75+ series) 2032 DTaP/Tdap/Td Immunization Discontinued 11/26/2019 TdaP Immunization Completed 11/26/2019 Hepatitis B Immunization Aged Out No longer eligible based on patient's age to complete this topic Meningococcal Immunization (ACWY) Aged Out No longer eligible based on patient's age to complete this topic Rotavirus Immunization Aged Out No lo nger eligible based on patient's age to complete this topic Insurance MEDICARE Care Teams Electronic Plotting System Operator Relationship Specialty Start Date End Date Monet Graham MD [address] [place] [address] PCP - General Emergency Medicine 10/15/22 Usama Jc MD [address] [address] Consulting Physician Oncology 10/15/22
--- OUTSIDE RECORDS SUMMARY | 2024-12-09 16:26 | XMS_ITS | Encounter Summary ---
Author Organization [facility] Address [address] [place] [address] Care Team Providers Care Instrumentation Designer Name Role Phone Raya Merlos Primary Care Provider [phone] Karin Alvarado MA Unavailable [phone] Karin Roesn Unavailable Reason for Visit * Reason Onset Date Comments General 11/29/2023 Encounter Details Date Type Department Care Team (Late st Contact Info) Description 11/29/[address] [facility] - Family Medicine [address] [place] [address] Raya Merlos PA [address] [place] [address] General Social History Tobacco Use Types Packs/Day Years Used Date Smoking Tobacco: Former Cigarettes 1 20 Smokeless Tobacco: Never Alcohol Use Standard Drinks/Week Comments No 0 [...] Date Recorded PHQ2 TOTAL SCORE 2 03/20/2023 [facility] of Occupat ional Health - Occupational Stress [...] place to sleep or slept in a senior care (including now)? Patient unable to answer 09/05/2023 Sex and Gender Information Value Date Recorded Sex Assigned at Not on file Gender Identity Not on file Sexual Orientation Not on file documented as of this encounter Functional Status Functional Status Response Date of Assess ment Is person deaf or have serious hearing difficult y? No 09/11/2023 Is person blind or have serious difficulty seein g? No 09/11/2023 Does person have serious dif ficulty walking/climbing stairs? Yes 09/11/2023 Does person have difficulty dressing/bathing? No 09/11/2023 Does person have difficulty doing errands alone? No 09/11/2023 Cognitive Status Response Date of Assessm ent Does person have difficulty concentrating/remembering/making decisions? No 09/11/2023 documented as of this encounter Miscellaneous Notes * Telephone Encounter - Zayda Calderon LPN - 12/02/2023 9:30 AM CDT Called patient she is going to [place] with a new provider Dr Jurado in [facility] she has an appt needs refills until she sees new provider * Telephone Encounter - Rupali Vaughn CNA - 11/29/2023 3:25 PM TRANSPLANT CASE MANAGER [facility] was calling needing refill on Omeprazole, lisinopril, tizanidine, ferrous sulfate, amitriptyline. SPLANT CASE MANAGER documented in this encounter Plan of Treatment Not on file documented as of this encounter Visit Diagnoses Not on filedocumented in this encounter Additional Health Concerns Infection Onset Date Last Indicated Resolved Time ESBL GNR Comment:Urine 09/08/23; 09/08/2023 09/08/2023 documented as of this encounter Care Teams Instrumentation Designer Relationship Specialty Start Date End Date Raya Merlos PA [address] [place] [address] PCP - General Physician Transition Of Care Specialist 02/23/21 Karin Alvarado MA Care Coordination Specialist Care Management 01/14/24 02/28/24 Karin Rosen Care Coordination Specialist Care Management 07/24/24 09/07/24 documented as of this encounter
[2024-12-09 16:32] LABS: Lipase 33 U/L (23-300)
[2024-12-09 16:45] LABS: NT Pro B Type Natriuretic Pept 829 pg/mL (19.9-100); Troponin I < 0.012 ng/mL (0.000-0.034)
[2024-12-09] MEDS: fentaNYL CITRATE INJ (*CRX) 100 MCG/2 ML VIAL 25 MCG IV PUSH (16:49)
[2024-12-09 17:58] LABS: Hematocrit 24.5 % (37.0-47.0)
[2024-12-09 18:10] LABS: Lactic Acid Reflex 0.8 mmol/L (0.7-2.0)
[2024-12-09 18:23] LABS: Hemoglobin 6.7 g/dL (12.0-15.0)
[2024-12-09 18:34] LABS: Influenza A QL RT-PCR Negative (Negative); Influenza B QL RT-PCR Negative (Negative); RSV RNA, RT-PCR Negative (Negative); SARS-CoV-2 RNA PCR Negative (Negative)
[2024-12-09] MEDS: AZITHROMYCIN 500 MG/NS 250 ML 500 MG/250 ML BAG 250 MG IVPB (18:40)
--- NOTE | 2024-12-09 18:48 | PC.NURSE ---
Pt requesting something to drink. made aware. Dr. Sudeep AGUSTIN for clear liquid diet. Pt provided with water.
[2024-12-09] MEDS: ONDANSETRON INJ 4 MG/2 ML VIAL IV PUSH (19:05)
[2024-12-09] MEDS: FAMOTIDINE 20 MG/2 ML VIAL IV PUSH (19:05)
--- NOTE | 2024-12-09 19:47 | PC.NURSE ---
Assumed care of patient after receiving report from REHAN Blackmon @ [phone]
--- NOTE | 2024-12-09 19:50 | P.HP_ITS ---
H&P: HPI History of Present Illness Date/Time: 12/09/24 20:30 Chief Complaint: Dizziness. Narrative: This is a 69-year-old female with history of migraine headaches, coronary artery disease, hypertension, aortic valve replacement, chronic obstructive pulmonary disease, chronic respiratory failure on home oxygen, bleeding ulcers, anemia, depression, and anxiety who presented to the emergency department via EMS from home for evaluation of dizziness. She gives a 5 day history of increasing shortness of breath from baseline, cough productive of thick green sputum, and pleuritic pain in the right flank and low right anterior chest. Her appetite has also been poor and she has occasional nausea. Today she passed a loose stool which was almost black in color and thereafter she began to feel very weak and lightheaded/dizzy and she called 911. She denies fever, syncope, exertional chest pain, palpitations, vomiting, epigastric and abdominal pain, and hematochezia. She takes Excedrin for headaches but not daily as she tries to be mindful given history of bleeding ulcers. In the ED: Vital signs on arrival include a temperature 97.9?, blood pressure 82/53, pulse 91, respiratory 26, SpO2 of 97%. Labs were significant for WBC count of 17.0, hemoglobin 6.7, BUN 29, creatinine 1.04, glucose 258, lactic acid 0.8, calcium 10.4, proBNP 829, troponin less than 0.012. Respiratory panel was negative. CT of the chest, abdomen, and pelvis showed findings in the right mid to lower lung field for which a pleural based mass is suspected, small right pleural effusion, and panlobar emphysematous disease. She was started on azithromycin and ceftriaxone for possible developing pneumonia. Additionally she received 1 unit packed red blood cells and 3 L normal saline bolus. She is being admitted in this setting for further treatment and evaluation. Review of Systems Review of Systems: 12 systems were reviewed and are negativ e except for as per HPI. FORMERLY [facility] Past Medical History Medical History (Updated 12/10/24 @ 02:54 by Miley Rodrigez PA-C) Chronic respiratory failure with hypoxia, on home oxygen therapy Chronic obstructive pulmonary disease Bleeding gastric ulcer Hypertension History of blood transfusion Seasonal allergies Tension headache Depression O2 dependent Cervicalgia Low back pain Heart disease Migraines Anxiety Anemia Surgical History Surgical History (Updated 12/10/24 @ 02:47 by Miley Rodrigez PA-C) History of transcatheter aortic valve implantation (REYNA) (2022) History of laparoscopy History of esophagogastroduodenoscopy (EGD) History of (1980) Family History Family History Father Alcoholism Heart disease Hypertension Grandparent Carcinoma of colon Acute myocardial infarction Social History Social History (Updated 12/10/24 @ 02:48 by Miley Rodrigez PA-C) Social History: Surrogate medical decision maker: rosa Cisneros Code status: Full code. Years smoked: 50 Smoking status: Former smoker Tobacco type: cigarettes Smoking end date: 09/23/23 Alcohol intake: never Substance use: never Substance use type: does not use Do You Feel Safe in your Home?: Yes Lack of Transportation: YES Lack of Food: Never True Current Housing: I Have Housing Concerned About Future Housing: No Difficulty Paying Gas/Electric Bills: No Difficulty Paying for Meds: No Currently Unemployed: No Education: Associate Degree Difficulty w/ Childcare or Family Care: No Spiritual care concerns: No Meds Home Medications and Allergies Home Medications ?Medication ?Instructions ?Recorded ?Confirmed ?Type cyclobenzaprine 10 mg tablet 5 - 10 mg (0.5 - 1 x 10 mg) PO TID 01/03/24 12/10/24 Rx PRN muscle spasm #90 tabs fluticasone propionate 50 1 spray intranasal BID #16 grams 01/03/24 12/10/24 Rx mcg/actuation nasal spray,suspension (Flonase Allergy Relief) lisinopril 5 mg tablet 5 mg PO DAILY #30 tabs 01/03/24 12/10/24 Rx metoprolol tartrate 25 mg tablet 25 mg PO BID #60 tabs 01/03/24 12/10/24 Rx omeprazole 40 mg capsule,delayed 40 mg PO DAILY #30 caps 01/03/24 12/10/24 Rx release ferrous sulfate 137 mg (45 mg 137 mg PO DAILY 01/06/24 12/10/24 History iron) tablet,extended release (Slow Fe) albuterol sulfate 90 mcg/actuation 1 - 2 inh inhalation Q4-6H PRN 10/30/24 12/10/24 Rx aerosol inhaler shortness of breath or wheezing #8.5 grams zszisjv-jfitevwubbbxz-upntangr 250 2 tablet PO Q6H PRN migraine 12/10/24 12/10/24 History mg-250 mg-65 mg tablet (Migraine headache Relief) kzgbsvljegopn-ZL-ulifrmzfpfkbh-guaif 20 ml PO Q6H PRN cold symptoms 12/10/24 12/10/24 History 10 mg-20 mg-650 mg/20 mL oral liq Allergies Allergy/AdvReac Type Severity Reaction Status Date / Time IVP Dye Allergy Unknown unknown Uncoded 01/03/24 11:12 Vital Signs Vital Signs - 24 hr 12/09/24 13:21 12/09/24 13:32 12/09/24 13:32 Temperature Pulse Rate 91 86 Respiratory Rate 26 H Blood Pressure 82/53 L Pulse Oximetry 97 99 Oxygen Delivery Nasal Cannula Nasal Cannula Oxygen Flow Rate 3 3 12/09/24 14:10 12/09/24 15:15 12/09/24 16:48 Temperature 97.9 F Pulse Rate 81 90 102 H Respiratory Rate 20 21 H 22 H Blood Pressure 84/61 L 109/46 L 115/62 Pulse Oximetry 100 98 100 Oxygen Delivery Oxygen Flow Rate 12/09/24 18:13 12/09/24 18:15 12/09/24 18:48 Temperature 98.1 F Pulse Rate 112 H 112 H Respiratory Rate 21 H 19 Blood Pressure 106/53 L 111/97 H Pulse Oximetry 99 95 Oxygen Delivery Oxygen Flow Rate 12/09/24 19:33 Temperature Pulse Rate 107 H Respiratory Rate 23 H Blood Pressure 108/52 L Pulse Oximetry 97 Oxygen Delivery Oxygen Flow Rate Exam Narrative: General: Chronically ill-appearing female in the semi-Sims position in bed. Weight: 64.7 kg. BMI: 25.3. HEENT: PERRL, EOMI. Sclera anicteric. Tacky mucous membranes. Edentulous. Neck: Supple. No JVD. Respiratory: Respirations are nonlabored and she is speaking in full sentences. Lung sounds are a bit diminished with some expiratory wheezing and occasional rhonchi which improved with cough. Cardiovascular: Regular rate and rhythm with S1-S2. Soft systolic murmur at the upper sternal border. Gastrointestinal: Abdomen is soft, nontender, and nondistended with positive bowel sounds. Skin: Warm and dry. Extremities: No cyanosis, clubbing, or significant edema. Radial and pedal pulses intact. No palpable knots or cords. Negative Sarika sign bilaterally. Neurological: Alert. Cranial nerves 2-12 are grossly intact. No gross focal deficits to casual conversation. Psychiatric: Pleasant and cooperative with appropriate mood and affect. H&P: Results Labs Labs: Short CBC 12/09/24 12/09/24 Range/Units 13:38 17:48 WBC 17.0 H (4.5-10.0) K/mm3 Hgb 7.6 L 6.7 L* (12.0-15.0) g/dL Hct 27.9 L 24.5 L (37.0-47.0) % Plt Count 361 (150-375) k/mm3 BMP 12/09/24 13:38 Sodium 138 Potassium 4.4 Chloride 98 Carbon Dioxide 30 BUN 29 H Creatinine 1.04 H Glucose 258 H Calcium 10.4 H Cardiac Enzymes 12/09/24 Range/Units 13:38 Troponin I < 0.012 (0.000-0.034) ng/mL Liver Function 12/09/24 Range/Units 13:38 Total Bilirubin 0.6 (0.2-1.3) mg/dL AST 21 (14-36) U/L ALT 13 (6-35) U/L Alkaline Phosphatase 74 (38-126) U/L Albumin 3.7 (3.5-5.1) g/dL Impressions Chest X-Ray 12/09/24 16:39 IMPRESSION: Bilateral pneumonia. Underlying fibrotic/emphysematous Changes. Chest/Abdomen/Pelvis CT 12/09/24 17:27 IMPRESSION: Panlobular emphysematous disease. Findings within the right mid to lower lung field for which a pleural-based mass is suspected. Small right-sided pleural effusion is also noted. No acute pathology within the abdomen or pelvis. Abdomen Ultrasound 12/09/24 18:06 IMPRESSION: Limited evaluation of pancreas secondary to overlying bowel gas. No evidence of cholecystitis or cholelithiasis, consistent with recent CT examination, performed on the same day. Assessment and Plan Assessment and plan (1) Fecal occult blood test positive: Code(s): R19.5 - Other fecal abnormalities Status: Acute (2) Sepsis: Code(s): A41.9 - Sepsis, unspecified organism Status: Acute (3) Pneumonia: Code(s): J18.9 - Pneumonia, unspecified organism Status: Acute (4) Acute kidney injury: Code(s): N17.9 - Acute kidney failure, unspecified Status: Acute (5) Mass of right lung: Code(s): R91.8 - Other nonspecific abnormal finding of lung field Status: Acute (6) Hyperglycemia: Code(s): R73.9 - Hyperglycemia, unspecified Status: Acute (7) Chronic obstructive pulmonary disease: Code(s): J44.9 - Chronic obstructive pulmonary disease, unspecified Status: Acute (8) Chronic respiratory failure with hypoxia, on home oxygen therapy: Code(s): J96.11 - Chronic respiratory failure with hypoxia; Z99.81 - Dependence on supplemental oxygen Status: Acute (9) Anemia: Code(s): D64.9 - Anemia, unspecified Status: Acute (10) Hypertension: Code(s): I10 - Essential (primary) hypertension Status: Acute Plan The patient presented to the emergency department with complaints of weakness and dizziness after having a dark stool as detailed in HPI. Labs, imaging, EKG, and all reports were personally reviewed. Hemoglobin was 6.7 for which she received 1 unit of packed red blood cells. According to the ED physician, her stool was dark and guaiac positive and given history of gastric ulcer she will be NPO after midnight for probable EGD tomorrow. She meets sepsis criteria with tachycardia, hypotension, and leukocytosis in the setting of suspected pneumonia though a lot of the symptoms could be due to the anemia as well. She received a fluid bolus in the ED and her lactic acid level has been within normal limits. Blood and sputum cultures have been ordered. Chest CT showed honeycombing in the right lower lobe with concerns for a pleural based mass for which pulmonology has been consulted. Pleuritic pain is likely related to that however pulmonary embolism is considered given her tachycardia and increased oxygen requirement from baseline; she lists an allergy to contrast dye and a V/Q scan has been ordered. She has an acute kidney injury which is likely due to a combination of factors including hypoperfusion from hypotension and hypovolemia due to the anemia and probable mild dehydration as well in the setting of CATALINA-inhibitor use. If no improvements with fluids and blood, a further workup can be pursued. Check fasting glucose and hemoglobin A1c as a random glucose was 258. Her home medications will be reviewed and resumed as appropriate. Findings and treatment plan were discussed with the patient. Questions were solicited and answered to satisfaction. The patient's medical management will be taken over by the hospitalist team in a.m. Quality VTE Prophylaxis VTE prophylaxis: mechanical ordered If No VTE Prophylaxis Answer both mechanical and pharmacologic: Reason no pharmacologic proph: medical contraindication (anemia, heme positive stool) The patient has been admitted under observation status. Hospitalist MIPS Advance Care Plan I have confirmed that the patient's Advanced Care Plan is present, code status is documented, or surrogate decision maker is listed in patient medical record.: Yes Medication Reconciliation I have utilized all available resources to obtain, update and review the patients current medications (includes all prescriptions, OTC, herbals, cannabis, and nutritional supplements).: Yes
[2024-12-09] MEDS: SODIUM CHLORIDE 0.9% IV 250 ML 30 ML IV CONT (20:17)
[2024-12-09] MEDS: TUBING, BLOOD SET 1 EACH XX (20:17)
[2024-12-09] MEDS: ACETAMINOPHEN 325 MG TABLET 650 MG PO (20:18)
[2024-12-09] MEDS: MORPHINE SULFATE (*CRX) 2 MG/ML INJ IV PUSH (21:31)
--- NOTE | 2024-12-09 22:10 | PC.NURSE ---
Call made to hospitalist in regard to patients bp. Awaiting call back.
--- NOTE | 2024-12-09 22:25 | PC.NURSE ---
Hospitalist stated she would call back with further orders regarding pts blood pressure
--- NOTE | 2024-12-09 23:40 | PC.NURSE ---
Received approval to send pt to floor
[2024-12-10] VITALS (40 sets, daily range): BP systolic 116–168; BP diastolic 44–87; PULSE 84–123; RESP 16–27; TEMP 36.4–37.3; O2SAT 92–100
--- NOTE | 2024-12-10 00:15 | PC.NURSE ---
This patient, Inez Delgado, was admitted to IMU Room 200-01. Patient/family oriented to hospital policies and general routines including ID bracelet, bed and alarms, visiting hours, pain management, procedures, bathroom and other care routines, personal items, smoking policy, room service/diet, and visiting hours. Information on how to activate the Rapid Response Team has been discussed. Patient/Family are encouraged to report perceived risks to care and to ask questions if they do not understand what they are told or what they should do.
--- NOTE | 2024-12-10 00:26 | ADMGEN ---
This patient, Inez Delgado, was admitted to IMU Room 200-01 on 12/10/24 at 0005. Patient/family oriented to hospital policies and general routines including ID bracelet, bed and alarms, visiting hours, pain management, procedures, bathroom and other care routines, personal items, smoking policy, room service/diet, and visiting hours. Information on how to activate the Rapid Response Team has been discussed. Patient/Family are encouraged to report perceived risks to care and to ask questions if they do not understand what they are told or what they should do.
[2024-12-10 00:57] LABS: Hematocrit 25.7 % (37.0-47.0); Hemoglobin 7.4 g/dL (12.0-15.0)
[2024-12-10] MEDS: ACETAMINOPHEN 325 MG TABLET 650 MG PO (01:00)
[2024-12-10] MEDS: MORPHINE SULFATE (*CRX) 2 MG/ML INJ IV PUSH ×2 (04:13→08:36)
[2024-12-10] MEDS: METOPROLOL TARTRATE INJ 5 MG/5 ML VIAL IV PUSH (04:13)
[2024-12-10 04:36] LABS: Hematocrit 25.5 % (37.0-47.0); Mean Corpuscular HGB Conc 27.5 g/dl (32-36); Mean Corpuscular Hemoglobin 22.7 pg (26-34); Mean Corpuscular Volume 82.8 fl (80-100); Platelet Count Result 334 k/mm3 (150-375); Red Blood Count 3.08 M/mm3 (4.2-5.4); Red Cell Distribution Width 17.6 % (11.5-14.5); White Blood Count 10.3 K/mm3 (4.5-10.0)
[2024-12-10 04:55] LABS: Anion Gap 6 mmol/L (4-12); Blood Urea Nitrogen 16 mg/dL (7-17); Calcium 9.2 mg/dL (8.4-10.2); Carbon Dioxide 27 mmol/L (22-30); Chloride 107 mmol/L (98-107); Estimated CRCL calculation 81 ml/min; Estimated Glomerular Filt Rate > 60; Glucose 124 mg/dL (65-110); Magnesium 1.7 mg/dL (1.6-2.3); Potassium 3.6 mmol/L (3.4-5.0); Sodium 140 mmol/L (137-145)
[2024-12-10 05:03] LABS: MRSA (PCR) NOT DETECTED (NOT DETECTE)
[2024-12-10 05:55] LABS: Hemoglobin A1C 4.9 % (<5.7)
--- NOTE | 2024-12-10 07:35 | P.CONGI_ITS ---
Assessment and Plan Assessment and plan (1) GIB (gastrointestinal bleeding): Qualifiers: GI bleed type/associated pathology: melena Qualified Code(s): K92.1 - Melena Code(s): K92.2 - Gastrointestinal hemorrhage, unspecified Status: Acute (2) Anemia: Qualifiers: Anemia type: iron deficiency Iron deficiency anemia type: chronic blood loss Qualified Code(s): D50.0 - Iron deficiency anemia secondary to blood loss (chronic) Code(s): D64.9 - Anemia, unspecified Status: Acute (3) COPD (chronic obstructive pulmonary disease): Qualifiers: COPD type: unspecified COPD Qualified Code(s): J44.9 - Chronic obstructive pulmonary disease, unspecified Code(s): J44.9 - Chronic obstructive pulmonary disease, unspecified Status: Acute (4) O2 dependent: Code(s): Z99.81 - Dependence on supplemental oxygen Status: Acute (5) Pneumonia: Qualifiers: Pneumonia type: due to unspecified organism Laterality: bilateral Lung location: unspecified part of lung Qualified Code(s): J18.9 - Pneumonia, unspecified organism Code(s): J18.9 - Pneumonia, unspecified organism Status: Acute (6) Sepsis: Qualifiers: Sepsis type: sepsis due to unspecified organism Sepsis acute organ dysfunction status: unspecified Qualified Code(s): A41.9 - Sepsis, unspecified organism Code(s): A41.9 - Sepsis, unspecified organism Status: Acute Plan 1. Melena/FLEX/GERD/appetite loss/nausea: Per patient last EGD and colonoscopy done <5 years ago but she was unable to say if they were done locally or in [place]. Family Hx negative for CRC or IBD. Hx of bleeding gastric ulcer. Patient was on oral iron prior to admission. Patient with dark stools that started yesterday x 1 episode. On admission Hgb at 8 and decreased to 6.7, patient received 1 unit PRBC's and today labs show Hgb 7, Hct 26, MCV 83, platelets 334 and INR 1.1. Prior to yesterday she was having regular daily BM's. Denies any BM since admission but she states she hasn't eaten anything for the past 4-5 days. She uses Excedrin as needed a few times monthly but denies other NSAID, aspirin or anticoag use. Patient on oral iron prior to admission but denies that she was having dark stools prior to yesterday. She is on omeprazole 40 mg daily at home and states that her reflux has remained well controlled. Admits to intermittent nausea without vomiting but is sounds like the nausea is secondary to productive painful cough. DDX: Ting-Arreola tear versus peptic ulcer disease versus AVM versus gastritis/esophagitis less likely neoplasm. * EGD today * keep patient NPO * continue BID PPI * supportive care with antiemetics as needed * primary care team to continue monitoring H/H and transfuse as needed to keep Hgb > 7 * further recs to follow endoscopy 2. COPD/O2 dependance/pneumonia/sepsis: Patient with severe chronic pulmonary disease admitted for pneumonia and sepsis. Patient on supplemental 02 3 liters O2 sat at last check 100%. * Primary care to continue managing/treating Thank you very much for allowing me to share in the care of this very nice patient. This report may have been done utilizing a voice recognition system. Attempts have been made to correct errors. However, there may be uncorrected grammatical, spelling, and recognition errors present. GI Consult Note Consult date/time: 12/10/24 07:35 Reason for consult: GIB HPI: Inez Delgado is a 69 year old female with PMSH of gastric ulcers with bleed, COPD, oxygen dependance, HTN, depression, , REYNA, migraines and anxiety. She presented to the ER yesterday with complaints of dark stools, dizziness and SOB. GI has been consulted for GIB. On admission patient with Hgb 8 and Hct 26 which decreased to 6.7 and patient received 1 unit PRBC's . Patient states that she had a one time episode of dark stool prior to admission, no BM since admission. Admits to intermittent nausea without vomiting, decreased appetite and rib pain secondary to chronic cough. Denies bloating, odynophagia, dysphagia, reflux, regurgitation, early satiety or weight loss. She normally has daily BM's that are formed and non urgent. Denies diarrhea, constipation or hematochezia. Last EGD and colonoscopy < 5 years ago. Denies NSAID, aspirin or anticoag use. Non drinker, non smoker and denies marijuana use. Family Hx negative for CRC or IBD. She is on supplemental O2 at 3 liters at home. ENDOSCOPY HISTORY: Per patient last EGD and colonoscopy were performed < 5 years ago but she was unable to say if they were done locally or in [place], results unknown. LABS AND STOOL STUDIES: Labs 12/10/2024: Sodium 140, potassium 3.6, BUN 16, creatinine 0.46, GFR >60 WBC 10, Hgb 7, Hct 26, MCV 83, platelets 334, INR 1.1 Total bilirubin 0.6, AST 21, ALT 13, Alkaline Phos 74, albumin 3.7 Calcium 9.2, magnesium 1.7, lipase 33, BNP 829 IMAGING: CT abd/pelvis w/contrast 12/09/2024: IMPRESSION: Panlobular emphysematous disease. Findings within the right mid to lower lung field for which a pleural-based mass is suspected. Small right-sided pleural effusion is also noted. No acute pathology within the abdomen or pelvis. Abdominal Ultrasound 11/29/2024: IMPRESSION: Limited evaluation of pancreas secondary to overlying bowel gas. No evidence of cholecystitis or cholelithiasis, consistent with recent CT examination, performed on the same day. Review of Systems 2 Constitutional: Constitutional: Reports as per HPI and Reports fatigue ENT: Reports as per HPI and Reports nasal congestion Cardiovascular: Cardiovascular: Reports as per HPI, Reports chest pain (rib pain), Reports lightheadedness and Reports dyspnea Respiratory: Respiratory: Reports chest congestion, Reports cough, Denies hemoptysis, Reports dyspnea and Reports dyspnea on exertion Gastrointestinal: Gastrointestinal: Reports as per HPI Musculoskeletal: Musculoskeletal: Reports as per HPI Integumentary/Breasts: Skin/Breast: Reports as per HPI Psychiatric: Psychiatric: Reports as per HPI Endocrine: Endocrine: Reports no additional endocrine complaints Hematologic/Lymphatic: Hematologic/Lymphatic: Reports no additional hematologic/lymphatic complaints [facility] [place] Past Medical History Medical History (Updated 12/10/24 @ 08:55 by Tahira Wall APRN) Chronic respiratory failure with hypoxia, on home oxygen therapy Chronic obstructive pulmonary disease Bleeding gastric ulcer Hypertension History of blood transfusion Seasonal allergies Tension headache Depression O2 dependent Cervicalgia Low back pain Heart disease Migraines Anxiety Anemia Surgical History Surgical History (Updated 12/10/24 @ 02:47 by Miley Rodrigez PA-C) History of transcatheter aortic valve implantation (REYNA) (2022) History of laparoscopy History of esophagogastroduodenoscopy (EGD) History of (1980) Family History Family History Father Alcoholism Heart disease Hypertension Grandparent Carcinoma of colon Acute myocardial infarction Social History Social History (Updated 12/10/24 @ 02:48 by Miley Rodrigez PA-C) Social History: Surrogate medical decision maker: rosa Cisneros Code status: Full code. Years smoked: 50 Smoking status: Former smoker Tobacco type: cigarettes Smoking end date: 09/23/23 Alcohol intake: never Substance use: never Substance use type: does not use Do You Feel Safe in your Home?: Yes Lack of Transportation: YES Lack of Food: Never True Current Housing: I Have Housing Concerned About Future Housing: No Difficulty Paying Gas/Electric Bills: No Difficulty Paying for Meds: No Currently Unemployed: No Education: Associate Degree Difficulty w/ Childcare or Family Care: No Spiritual care concerns: No Meds Home Medications and Allergies Home Medications ?Medication ?Instructions ?Recorded ?Confirmed ?Type cyclobenzaprine 10 mg tablet 5 - 10 mg (0.5 - 1 x 10 mg) PO TID 01/03/24 12/10/24 Rx PRN muscle spasm #90 tabs fluticasone propionate 50 1 spray intranasal BID #16 grams 01/03/24 12/10/24 Rx mcg/actuation nasal spray,suspension (Flonase Allergy Relief) lisinopril 5 mg tablet 5 mg PO DAILY #30 tabs 01/03/24 12/10/24 Rx metoprolol tartrate 25 mg tablet 25 mg PO BID #60 tabs 01/03/24 12/10/24 Rx omeprazole 40 mg capsule,delayed 40 mg PO DAILY #30 caps 01/03/24 12/10/24 Rx release ferrous sulfate 137 mg (45 mg 137 mg PO DAILY 01/06/24 12/10/24 History iron) tablet,extended release (Slow Fe) albuterol sulfate 90 mcg/actuation 1 - 2 inh inhalation Q4-6H PRN 10/30/24 12/10/24 Rx aerosol inhaler shortness of breath or wheezing #8.5 grams dbctqib-uzqiwrdbvozhc-owoqtwyt 250 2 tablet PO Q6H PRN migraine 12/10/24 12/10/24 History mg-250 mg-65 mg tablet (Migraine headache Relief) dqqwfkmwuskrd-OH-cgrrdvbgffxvl-guaif 20 ml PO Q6H PRN cold symptoms 12/10/24 12/10/24 History 10 mg-20 mg-650 mg/20 mL oral liq Allergies Allergy/AdvReac Type Severity Reaction Status Date / Time IVP Dye Allergy Unknown unknown Uncoded 01/03/24 11:12 Vital Signs Vital Signs - 24 hr 12/09/24 13:21 12/09/24 13:32 12/09/24 13:32 Temperature Pulse Rate 91 86 Respiratory Rate 26 H Blood Pressure 82/53 L Pulse Oximetry 97 99 Oxygen Delivery Nasal Cannula Nasal Cannula Oxygen Flow Rate 3 3 12/09/24 14:10 12/09/24 15:15 12/09/24 16:48 Temperature 97.9 F Pulse Rate 81 90 102 H Respiratory Rate 20 21 H 22 H Blood Pressure 84/61 L 109/46 L 115/62 Pulse Oximetry 100 98 100 Oxygen Delivery Oxygen Flow Rate 12/09/24 18:13 12/09/24 18:15 12/09/24 18:48 Temperature 98.1 F Pulse Rate 112 H 112 H Respiratory Rate 21 H 19 Blood Pressure 106/53 L 111/97 H Pulse Oximetry 99 95 Oxygen Delivery Oxygen Flow Rate 12/09/24 19:20 12/09/24 19:33 12/09/24 20:00 Temperature 98.0 F Pulse Rate 107 H 117 H Respiratory Rate 23 H 24 H Blood Pressure 108/52 L 128/71 Pulse Oximetry 100 97 100 Oxygen Delivery Nasal Cannula Oxygen Flow Rate 5 12/09/24 20:29 12/09/24 21:00 12/09/24 21:29 Temperature 98.3 F 98.8 F 98.8 F Pulse Rate 116 H 104 H 106 H Respiratory Rate 19 18 18 Blood Pressure 134/72 123/56 L 123/56 L Pulse Oximetry 99 97 99 Oxygen Delivery Oxygen Flow Rate 12/09/24 21:35 12/09/24 22:00 12/09/24 22:16 Temperature Pulse Rate 105 H 103 H 103 H Respiratory Rate 19 20 21 H Blood Pressure 95/44 L 88/58 L 97/49 L Pulse Oximetry 99 100 100 Oxygen Delivery Oxygen Flow Rate 12/09/24 22:51 12/09/24 23:22 12/09/24 23:23 Temperature 98.7 F Pulse Rate 103 H 106 H Respiratory Rate 22 H 20 Blood Pressure 91/36 L 97/33 L 97/33 L Pulse Oximetry 100 100 Oxygen Delivery Oxygen Flow Rate 12/10/24 00:00 12/10/24 00:00 12/10/24 00:15 Temperature 97.8 F Pulse Rate 101 H 119 H Respiratory Rate 20 Blood Pressure 122/66 Pulse Oximetry 97 96 Oxygen Delivery Nasal Cannula Oxygen Flow Rate 3 12/10/24 02:00 12/10/24 03:57 12/10/24 04:00 Temperature 98.6 F Pulse Rate 114 H 123 H Respiratory Rate 16 Blood Pressure 123/62 Pulse Oximetry 100 97 Oxygen Delivery Nasal Cannula Oxygen Flow Rate 3 12/10/24 04:00 12/10/24 04:13 12/10/24 06:00 Temperature Pulse Rate 115 H 118 H 94 Respiratory Rate Blood Pressure Pulse Oximetry Oxygen Delivery Oxygen Flow Rate Exam 2 Const: General: cooperative, comfortable, no acute distress, well developed and uncomfortable (secondary to painful productive cough ) O rientation/consciousness: oriented to person, oriented to place, oriented to time and patient oriented x3 HENMT: Head: normal to inspection, normocephalic and atraumatic Mouth: Yes Normal oral and palatal mucosa present and Yes moist mucous membranes Eyes: General: appearance normal, both eyes and all related structures C onjunctivae: conjunctivae normal Sclera: sclerae normal Pupils: Equal, round and reactive pupils present Neck: Neck: normal visual inspection Chest: Chest palpation & inspection: normal inspection of the chest Resp: Effort & Inspection: able to speak in complete sentences A uscultation: diminished lung sounds Cardio: Jugular venous distension: no JVD Rate: regular rate Rhythm: r egular rhythm Heart sounds: S1 normal heart sound present and S2 normal heart sound present GI: Inspection: normal to inspection GI Palp: Yes Soft to palpation and Yes No hepatosplenomegaly present Auscultation: normal bowel sounds Rectal Exam: deferred Skin: General skin exam: normal color and no rashes or lesions noted Neuro: General: oriented to person, oriented to place, oriented to time and patient oriented x3 Cranial nerves: Yes Equal, round and reactive pupils present Speech: normal speech Extrem: General: normal to inspection and no clubbing, cyanosis or edema Psych: Appearance: grossly normal and well kempt Affect: normal affect Results Labs 12/10/24 04:26 12/10/24 04:26 Labs: Short CBC 12/09/24 12/09/24 12/10/24 Range/Units 13:38 17:48 00:51 WBC 17.0 H (4.5-10.0) K/mm3 Hgb 7.6 L 6.7 L* 7.4 L (12.0-15.0) g/dL Hct 27.9 L 24.5 L 25.7 L (37.0-47.0) % Plt Count 361 (150-375) k/mm3 12/10/24 Range/Units 04:26 WBC 10.3 H (4.5-10.0) K/mm3 Hgb 7.0 L (12.0-15.0) g/dL Hct 25.5 L (37.0-47.0) % Plt Count 334 (150-375) k/mm3 [facility] 12/09/24 12/10/24 13:38 04:26 Sodium 138 140 Potassium 4.4 3.6 Chloride 98 107 Carbon Dioxide 30 27 BUN 29 H 16 D Creatinine 1.04 H 0.46 L Glucose 258 H 124 H Calcium 10.4 H 9.2 Cardiac Enzymes 12/09/24 Range/Units 13:38 Troponin I < 0.012 (0.000-0.034) ng/mL Liver Function 12/09/24 Range/Units 13:38 Total Bilirubin 0.6 (0.2-1.3) mg/dL AST 21 (14-36) U/L ALT 13 (6-35) U/L Alkaline Phosphatase 74 (38-126) U/L Albumin 3.7 (3.5-5.1) g/dL
[2024-12-10] MEDS: IPRATROPIUM 0.5 MG/ALBUTEROL SULFATE 2.5 MG AMPUL.NEB 3 ML INHALATION ×3 (07:37→19:51)
[2024-12-10 07:50] LABS: Glucose Point of Care 112 mg/dl (65-105)
[2024-12-10] MEDS: FERROUS SULFATE DRIED 142 MG TABCR PO (08:29)
[2024-12-10] MEDS: guaiFENesin 12 HR 600 MG TABCR 1200 MG PO ×2 (08:29→21:15)
[2024-12-10] MEDS: PANTOPRAZOLE SODIUM IV 40 MG VIAL IV PUSH (08:29)
--- NOTE | 2024-12-10 09:10 | P.PNIM_ITS ---
Progress Note: A&P Assessment and Plan (1) Fecal occult blood test positive: Code(s): R19.5 - Other fecal abnormalities Status: Acute (2) Sepsis: Qualifiers: Sepsis acute organ dysfunction status: unspecified Sepsis type: sepsis due to unspecified organism Qualified Code(s): A41.9 - Sepsis, unspecified organism Code(s): A41.9 - Sepsis, unspecified organism Status: Acute (3) Pneumonia: Qualifiers: Laterality: bilateral Lung location: unspecified part of lung Pneumonia type: due to unspecified organism Qualified Code(s): J18.9 - Pneumonia, unspecified organism Code(s): J18.9 - Pneumonia, unspecified organism Status: Acute (4) Acute kidney injury: Code(s): N17.9 - Acute kidney failure, unspecified Status: Acute (5) Mass of right lung: Code(s): R91.8 - Other nonspecific abnormal finding of lung field Status: Acute (6) Hyperglycemia: Code(s): R73.9 - Hyperglycemia, unspecified Status: Acute (7) Chronic obstructive pulmonary disease: Code(s): J44.9 - Chronic obstructive pulmonary disease, unspecified Status: Acute (8) Chronic respiratory failure with hypoxia, on home oxygen therapy: Code(s): J96.11 - Chronic respiratory failure with hypoxia; Z99.81 - Dependence on supplemental oxygen Status: Acute (9) Anemia: Qualifiers: Anemia type: iron deficiency Iron deficiency anemia type: chronic blood loss Qualified Code(s): D50.0 - Iron deficiency anemia secondary to blood loss (chronic) Code(s): D64.9 - Anemia, unspecified Status: Acute (10) Hypertension: Code(s): I10 - Essential (primary) hypertension Status: Acute Plan The patient presented to the emergency department with complaints of weakness and dizziness after having a dark stool as detailed in Acute on chronic blood-loss anemia, GI bleeding Patient has chronic anemia, hemoglobin dropped to 6.7 upon arrival in the ED, patient has black stools Suggesting GI bleeding and acute on chronic blood-loss anemia Received 1 pack RBC, hemoglobin initially 7.4, dropped to 7.0 today Patient is a tachycardia, heart rate well on sick, tachypnea, blood pressure soft. Will transfuse 2 pack RBC Keep patient p.o. Continue Protonix 40 mg b.i.d. IV push Follow-up hemoglobin q.6 hours, transfuse p.r.n. Appreciate GI consultation, plans EGD Sepsis and pneumonia sepsis criteria with tachycardia, hypotension, and leukocytosis suspected pneumonia, received azithromycin ceftriaxone, will continue antibiotics Received fluid resuscitation Blood and sputum cultures pending Chest CT showed emphysema disease with concerns for a pleural based mass Pending V/Q scan Consulted pulmonology by physician's assistant Follow head neck surgeon recommendation recommendation Hypertension Patient has hypotension, Hold hypertension medication Uncontrolled type 2 diabetes Random glucose was 258. Continue insulin sliding scale Optimize medications for controlling glucose intact range Subjective Date/time seen: 12/10/24 09:10 Interval history: I saw examined patient today, patient still has abdomen pain, feels tired, denies nausea vomiting lightheadedness. Hemoglobin dropped to 7 0 after transfusion. Exam Narrative: GENERAL: Pleasant, in no acute distress. Well-nourished. - EYES: EOMI. Anicteric. - HENT: Moist mucous membranes. - LUNGS: Clear to auscultation bilater ally, no wheezing, rhonchi, or rales. - CARDIOVASCULAR: Regular rate and rhyth m. No murmur. No JVD. - ABDOMEN: Soft, non-tender and non-dist ended. No palpable masses. - EXTREMITIES: No edema. Peripheral puls es 2+. Non-tender. - NEUROLOGIC: No focal neurological defi cits. CN II-XII grossly intact. - PSYCHIATRIC: Awake, Alert and oriented x 3. Appropriate mood and affect. - SKIN: No rashes or lesions. Warm. - LYMPH: No cervical lymphadenopathy. Objective Data Vital Signs Vital Signs: Vital Signs - 24 hr 12/09/24 13:21 12/09/24 13:32 12/09/24 13:32 Temperature Pulse Rate 91 86 Respiratory Rate 26 H Blood Pressure 82/53 L Pulse Oximetry 97 99 Oxygen Delivery Nasal Cannula Nasal Cannula Oxygen Flow Rate 3 3 12/09/24 14:10 12/09/24 15:15 12/09/24 16:48 Temperature 97.9 F Pulse Rate 81 90 102 H Respiratory Rate 20 21 H 22 H Blood Pressure 84/61 L 109/46 L 115/62 Pulse Oximetry 100 98 100 Oxygen Delivery Oxygen Flow Rate 12/09/24 18:13 12/09/24 18:15 12/09/24 18:48 Temperature 98.1 F Pulse Rate 112 H 112 H Respiratory Rate 21 H 19 Blood Pressure 106/53 L 111/97 H Pulse Oximetry 99 95 Oxygen Delivery Oxygen Flow Rate 12/09/24 19:20 12/09/24 19:33 12/09/24 20:00 Temperature 98.0 F Pulse Rate 107 H 117 H Respiratory Rate 23 H 24 H Blood Pressure 108/52 L 128/71 Pulse Oximetry 100 97 100 Oxygen Delivery Nasal Cannula Oxygen Flow Rate 5 12/09/24 20:29 12/09/24 21:00 12/09/24 21:29 Temperature 98.3 F 98.8 F 98.8 F Pulse Rate 116 H 104 H 106 H Respiratory Rate 19 18 18 Blood Pressure 134/72 123/56 L 123/56 L Pulse Oximetry 99 97 99 Oxygen Delivery Oxygen Flow Rate 12/09/24 21:35 12/09/24 22:00 12/09/24 22:16 Temperature Pulse Rate 105 H 103 H 103 H Respiratory Rate 19 20 21 H Blood Pressure 95/44 L 88/58 L 97/49 L Pulse Oximetry 99 100 100 Oxygen Delivery Oxygen Flow Rate 12/09/24 22:51 12/09/24 23:22 12/09/24 23:23 Temperature 98.7 F Pulse Rate 103 H 106 H Respiratory Rate 22 H 20 Blood Pressure 91/36 L 97/33 L 97/33 L Pulse Oximetry 100 100 Oxygen Delivery Oxygen Flow Rate 12/10/24 00:00 12/10/24 00:00 12/10/24 00:15 Temperature 97.8 F Pulse Rate 101 H 119 H Respiratory Rate 20 Blood Pressure 122/66 Pulse Oximetry 97 96 Oxygen Delivery Nasal Cannula Oxygen Flow Rate 3 12/10/24 02:00 12/10/24 03:57 12/10/24 04:00 Temperature 98.6 F Pulse Rate 114 H 123 H Respiratory Rate 16 Blood Pressure 123/62 Pulse Oximetry 100 97 Oxygen Delivery Nasal Cannula Oxygen Flow Rate 3 12/10/24 04:00 12/10/24 04:13 12/10/24 06:00 Temperature Pulse Rate 115 H 118 H 94 Respiratory Rate Blood Pressure Pulse Oximetry Oxygen Delivery Oxygen Flow Rate 12/10/24 07:38 12/10/24 07:38 12/10/24 07:41 Temperature 98.7 F Pulse Rate 103 H 105 H Respiratory Rate 20 18 Blood Pressure 116/44 L Pulse Oximetry 96 100 Oxygen Delivery Nasal Cannula Oxygen Flow Rate 3 12/10/24 07:55 Temperature Pulse Rate 106 H Respiratory Rate 20 Blood Pressure Pulse Oximetry Oxygen Delivery Oxygen Flow Rate Intake/Output Intake/Output: Intake & Output 12/07/24 12/08/24 12/09/24 12/10/24 23:59 23:59 23:59 23:59 Intake Total 3900 Balance 3900 Meds/Results Medications: Active Medications Generic Name Dose Route Start Last Admin Trade Name Freq PRN Reason Stop Dose Admin Acetaminophen 650 mg 12/09/24 18:53 12/10/24 01:00 Acetaminophen 325 Mg Tablet PO 650 mg Q4H PRN Administration Mild Pain (1-3) or Fever Albuterol/Ipratropium 3 ml 12/10/24 08:00 12/10/24 07:37 Ipratropium 0.5 Mg/Albuterol Sulfate 2.5 Mg Ampul.Neb 3 Ml INHALATION 3 ml Q6HRT MINGO Administration Dextrose 12.5 gm 12/10/24 03:00 Dextrose 50% 25 Gm/50 Ml Syringe IV PUSH PRN PRN Hypoglycemia Protocol Ferrous Sulfate 142 mg 12/10/24 08:00 12/10/24 08:29 Ferrous Sulfate Dried 142 Mg Tabcr PO 142 mg DAILY@0800 MINGO Administration Fluticasone Propionate 1 spray 12/10/24 09:00 12/10/24 08:30 Fluticasone Propionate 0.05% Na Spr 16 Gm Btl (*Bkc) NASAL Not Given BID MINGO Glucagon 1 mg 12/10/24 03:00 Glucagon For Inj 1 Mg Vial IM PRN PRN Hypoglycemia Protocol Glucose 15 gm 12/10/24 03:00 Glucose Oral Gel 15 Gm Of Glucse In 37.5 Gm Tube PO PRN PRN Hypoglycemia Protocol Guaifenesin 1,200 mg 12/10/24 09:00 12/10/24 08:29 Guaifenesin 12 Hr 600 Mg Tabcr PO 1,200 mg Q12HR MINGO Administration Dextrose 1,000 mls @ 100 mls/hr 12/10/24 03:00 Dextrose 5% 1,000 Ml IVPB PRN PRN Hypoglycemia Protocol Ceftriaxone Sodium 1 gm in 50 mls @ 100 mls/hr 12/10/24 18:00 Rocephin 1 Gm/Ns 50 Ml IVPB Q24H MINGO Azithromycin 500 mg in 250 mls @ 250 mls/hr 12/10/24 19:00 Zithromax IVPB Q24H MINGO Sodium Chloride 250 mls @ 30 mls/hr 12/10/24 08:09 Normal Saline Iv IV CONT 12/10/24 16:28 .Q8H20M STA Insulin Aspart 2 - 5 units 12/10/24 08:00 12/10/24 08:30 Insulin Aspart (*Bkc) 100 Units/Ml SUB-Q Not Given TIDWM [facility] [place] Protocol Insulin Aspart 1 - 2 units 12/10/24 21:00 Insulin Aspart (*Bkc) 100 Units/Ml SUB-Q HS [facility] [place] Protocol Morphine Sulfate 2 mg 12/10/24 03:58 12/10/24 08:36 Morphine Sulfate (*Crx) 2 Mg/Ml Inj IV PUSH 2 mg Q4H PRN Administration Pain Rated 7-10 Ondansetron HCl 4 mg 12/09/24 18:53 Ondansetron Inj 4 Mg/2 Ml Vial IV PUSH Q4H PRN Nausea Pantoprazole Sodium 40 mg 12/10/24 09:00 12/10/24 08:29 Pantoprazole Sodium Iv 40 Mg Vial IV PUSH 40 mg Q12HR MINGO Administration Radiology Results: ITS Impressions Chest X-Ray 12/09/24 16:39 IMPRESSION: Bilateral pneumonia. Underlying fibrotic/emphysematous Changes. Chest/Abdomen/Pelvis CT 12/09/24 17:27 IMPRESSION: Panlobular emphysematous disease. Findings within the right mid to lower lung field for which a pleural-based mass is suspected. Small right-sided pleural effusion is also noted. No acute pathology within the abdomen or pelvis. Abdomen Ultrasound 12/09/24 18:06 IMPRESSION: Limited evaluation of pancreas secondary to overlying bowel gas. No evidence of cholecystitis or cholelithiasis, consistent with recent CT examination, performed on the same day. Labs Labs: Laboratory Results - last 24 hr 12/09/24 12/09/24 12/09/24 13:38 14:00 16:14 WBC 17.0 H RBC 3.44 L Hgb 7.6 L Hct 27.9 L MCV 81.1 MCH 22.1 L MCHC 27.2 L RDW 18.8 H Plt Count 361 MPV 10.5 H Immature Gran % (Auto) 0.5 Neut % (Auto) 86.6 H Lymph % (Auto) 4.5 L [place] % (Auto) 7.7 Eos % (Auto) 0.2 Baso % (Auto) 0.5 Lymph # (Auto) 0.76 L [place] # (Auto) 1.3 H Eos # (Auto) 0.0 Baso # (Auto) 0.1 Abs Immat Gran (auto) 0.09 H Absolute Neuts (auto) 14.7 H Absolute Nucleated RBC 0.000 Band Neutrophils % Not Reportable Nucleated RBC % 0.0 Platelet Estimate Adequate % Immature Plt Fraction 6.5 Hypochromasia 2+ Anisocytosis 1+ Schistocytes None seen PT 14.5 INR 1.1 APTT 32.6 Sodium 138 Potassium 4.4 Chloride 98 Carbon Dioxide 30 Anion Gap 10 BUN 29 H Creatinine 1.04 H Estim Creat Clear Calc 38 Estimated GFR 53 L Glucose 258 H POC Capillary Glucose Hemoglobin A1c Lactic Acid Calcium 10.4 H Magnesium Total Bilirubin 0.6 AST 21 ALT 13 Alkaline Phosphatase 74 Troponin I < 0.012 NT-Pro-B Natriuret Pep 829 H Total Protein 7.0 Albumin 3.7 Lipase 33 Nasal MRSA (PCR) Influenza A (RT-PCR) Influenza B (RT-PCR) RSV (RT-PCR) SARS-CoV-2 RNA (RT-PCR) Blood Type O Positive Antibody Screen Negative Crossmatch See Detail 12/09/24 12/09/24 12/10/24 17:47 17:48 00:51 WBC RBC Hgb 6.7 L* 7.4 L Hct 24.5 L 25.7 L MCV MCH MCHC RDW Plt Count MPV Immature Gran % (Auto) Neut % (Auto) Lymph % (Auto) [place] % (Auto) Eos % (Auto) Baso % (Auto) Lymph # (Auto) [place] # (Auto) Eos # (Auto) Baso # (Auto) Abs Immat Gran (auto) Absolute Neuts (auto) Absolute Nucleated RBC Band Neutrophils % Nucleated RBC % Platelet Estimate % Immature Plt Fraction Hypochromasia Anisocytosis Schistocytes PT INR APTT Sodium Potassium Chloride Carbon Dioxide Anion Gap BUN Creatinine Estim Creat Clear Calc Estimated GFR Glucose POC Capillary Glucose Hemoglobin A1c Lactic Acid 0.8 Calcium Magnesium Total Bilirubin AST ALT Alkaline Phosphatase Troponin I NT-Pro-B Natriuret Pep Total Protein Albumin Lipase Nasal MRSA (PCR) Influenza A (RT-PCR) Negative Influenza B (RT-PCR) Negative RSV (RT-PCR) Negative SARS-CoV-2 RNA (RT-PCR) Negative Blood Type Antibody Screen Crossmatch 12/10/24 12/10/24 12/10/24 03:47 04:26 07:47 WBC 10.3 H RBC 3.08 L Hgb 7.0 L Hct 25.5 L MCV 82.8 MCH 22.7 L MCHC 27.5 L RDW 17.6 H Plt Count 334 MPV 9.0 Immature Gran % (Auto) Neut % (Auto) Lymph % (Auto) [place] % (Auto) Eos % (Auto) Baso % (Auto) Lymph # (Auto) [place] # (Auto) Eos # (Auto) Baso # (Auto) Abs Immat Gran (auto) Absolute Neuts (auto) Absolute Nucleated RBC Band Neutrophils % Nucleated RBC % Platelet Estimate % Immature Plt Fraction Hypochromasia Anisocytosis Schistocytes PT INR APTT Sodium 140 Potassium 3.6 Chloride 107 Carbon Dioxide 27 Anion Gap 6 BUN 16 D Creatinine 0.46 L Estim Creat Clear Calc 81 Estimated GFR > 60 Glucose 124 H POC Capillary Glucose 112 H Hemoglobin A1c 4.9 Lactic Acid Calcium 9.2 Magnesium 1.7 Total Bilirubin AST ALT Alkaline Phosphatase Troponin I NT-Pro-B Natriuret Pep Total Protein Albumin Lipase Nasal MRSA (PCR) Not detected Influenza A (RT-PCR) Influenza B (RT-PCR) RSV (RT-PCR) SARS-CoV-2 RNA (RT-PCR) Blood Type Antibody Screen Crossmatch
[2024-12-10] MEDS: TUBING, BLOOD PLUM PUMP TUBING 1 EACH XX ×2 (09:30→13:33)
[2024-12-10] MEDS: SODIUM CHLORIDE 0.9% IV 250 ML 30 ML IV CONT (09:30)
[2024-12-10] MEDS: oxyCODONE HCL (*CRX) 5 MG TAB IR PO ×3 (11:06→23:14)
--- NOTE | 2024-12-10 11:38 | SUR.PREOP ---
PT HAS HAD AORTIC VALVE REPLACEMENT, PER DR TORRES NO ADDTIONAL ANTIBIOTICS REQUIRED PRIOR TO PROCEDURE DUE TO ANTIBIOTICS PT IS ALREADY RECEIVING.
[2024-12-10] MEDS: LACTATED RINGERS 1,000 ML 150 ML IV CONT (11:44)
--- NOTE | 2024-12-10 11:50 | P.CONPL_ITS ---
Assessment and Plan Assessment and plan (1) COPD (chronic obstructive pulmonary disease): Qualifiers: COPD type: unspecified COPD Qualified Code(s): J44.9 - Chronic obstructive pulmonary disease, unspecified Code(s): J44.9 - Chronic obstructive pulmonary disease, unspecified Status: Acute (2) O2 dependent: Code(s): Z99.81 - Dependence on supplemental oxygen Status: Acute (3) Emphysema lung: Code(s): J43.9 - Emphysema, unspecified Status: Acute (4) Pneumonia: Qualifiers: Laterality: bilateral Lung location: unspecified part of lung P neumonia type: due to unspecified organism Qualified Code(s): J18.9 - Pneumonia, unspecified organism Code(s): J18.9 - Pneumonia, unspecified organism Status: Acute Assessment and Plan: This 69-year-old female with a history of COPD and chronic hypoxemic respiratory failure on supplemental oxygen presented with right pleuritic chest pain, leukocytosis, and new lung infiltrates/consolidation in the right subpleural area. Her presentation, along with diagnostic studies, suggests community- acquired pneumonia, most likely pneumococcal, given her positive response to antibiotics and declining white blood cell count. The patient continues to experience right pleuritic chest pain, necessitating the use of opiates for improved pain management. The plan is to continue the current antibiotic regimen, increasing ceftriaxone to 1 g every 12 hours, and maintain the use of short-acting bronchodilators as needed. A lower extremity study is recommended to rule out deep vein thrombosis (DVT). Consider using sequential compression devices (SCDs) for DVT prophylaxis, and initiate subcutaneous heparin for better DVT prevention if there are no contraindications. I will continue to monitor the patient alongside you History of Present Illness History of Present Illness Consult date: 12/10/24 Chief complaint: near syncope; anemia requiring blood transfusion; Narrative: This 69-year-old female with a history of COPD, coronary artery disease, aortic valve replacement, and hypoxemic respiratory failure on home oxygen presented with a several-day history of increasing shortness of breath and right pleuritic chest pain. She was in her usual state of health until approximately five days ago when she began experiencing shortness of breath. Three days prior to admission, she developed right pleuritic chest pain, accompanied by a cough and yellow sputum production. She reported no fever, chills, or hemoptysis. Additional symptoms included poor appetite and occasional nausea. Yesterday, she experienced loose stools with an almost black color, as well as weakness and lightheadedness. She continues to have right pleuritic chest pain and is requesting strong pain medications. The patient has a history of COPD and has been on maintenance bronchodilators, using supplemental oxygen for the last five years. Her other medical history includes bleeding ulcers, anemia, depression, and anxiety. A chest CT revealed advanced centrilobular emphysema, right lung subpleural consolidation, and a small right pleural effusion. She has been treated with Zithromax and ceftriaxone for possible pneumonia. Initially, her white cell count was elevated but is now trending down. PCR testing for common viruses was negative, and urinary antigen tests for common bacterial infections are pending, as is a sputum culture. No previous pulmonary function testing is available, and she is followed by an outside head rose grower. Review of Systems 2 Review of Systems: All systems reviewed & are unremarkable except as noted in HPI and below (HPI and below) [facility], [facility] Past Medical History Medical History (Updated 12/10/24 @ 08:55 by Tahira Wall APRN) Chronic respiratory failure with hypoxia, on home oxygen therapy Chronic obstructive pulmonary disease Bleeding gastric ulcer Hypertension History of blood transfusion Seasonal allergies Tension headache Depression O2 dependent Cervicalgia Low back pain Heart disease Migraines Anxiety Anemia Surgical History Surgical History (Updated 12/10/24 @ 02:47 by Miley Rodrigez PA-C) History of transcatheter aortic valve implantation ([facility]) (2022) History of laparoscopy History of esophagogastroduodenoscopy (EGD) History of (1980) Family History Family History Father Alcoholism Heart disease Hypertension Grandparent Carcinoma of colon Acute myocardial infarction Social History Social History (Updated 12/10/24 @ 02:48 by Miley Rodrigez PA-C) Social History: Surrogate medical decision maker: Shara rosa Martin Code status: Full code. Years smoked: 50 Smoking status: Former smoker Tobacco type: cigarettes Smoking end date: 09/23/23 Alcohol intake: never Substance use: never Substance use type: does not use Do You Feel Safe in your Home?: Yes Lack of Transportation: YES Lack of Food: Never True Current Housing: I Have Housing Concerned About Future Housing: No Difficulty Paying Gas/Electric Bills: No Difficulty Paying for Meds: No Currently Unemployed: No Education: Associate Degree Difficulty w/ Childcare or Family Care: No Spiritual care concerns: No Meds Home Medications and Allergies Home Medications ?Medication ?Instructions ?Recorded ?Confirmed ?Type cyclobenzaprine 10 mg tablet 5 - 10 mg (0.5 - 1 x 10 mg) PO TID 01/03/24 12/10/24 Rx PRN muscle spasm #90 tabs fluticasone propionate 50 1 spray intranasal BID #16 grams 01/03/24 12/10/24 Rx mcg/actuation nasal spray,suspension (Flonase Allergy Relief) lisinopril 5 mg tablet 5 mg PO DAILY #30 tabs 01/03/24 12/10/24 Rx metoprolol tartrate 25 mg tablet 25 mg PO BID #60 tabs 01/03/24 12/10/24 Rx omeprazole 40 mg capsule,delayed 40 mg PO DAILY #30 caps 01/03/24 12/10/24 Rx release ferrous sulfate 137 mg (45 mg 137 mg PO DAILY 01/06/24 12/10/24 History iron) tablet,extended release (Slow Fe) albuterol sulfate 90 mcg/actuation 1 - 2 inh inhalation Q4-6H PRN 10/30/24 12/10/24 Rx aerosol inhaler shortness of breath or wheezing #8.5 grams ilsdhpl-hofxxgepfsidb-qlamctzr 250 2 tablet PO Q6H PRN migraine 12/10/24 12/10/24 History mg-250 mg-65 mg tablet (Migraine headache Relief) vloiygrcurxuo-SX-glafbptnymilm-guaif 20 ml PO Q6H PRN cold symptoms 12/10/24 12/10/24 History 10 mg-20 mg-650 mg/20 mL oral liq Allergies Allergy/AdvReac Type Severity Reaction Status Date / Time IVP Dye Allergy Unknown unknown Uncoded 01/03/24 11:12 Vital Signs Vital Signs - 24 hr 12/09/24 13:21 12/09/24 13:32 12/09/24 13:32 Temperature Pulse Rate 91 86 Respiratory Rate 26 H Blood Pressure 82/53 L Pulse Oximetry 97 99 Oxygen Delivery Nasal Cannula Nasal Cannula Oxygen Flow Rate 3 3 12/09/24 14:10 12/09/24 15:15 12/09/24 16:48 Temperature 36.6 C Pulse Rate 81 90 102 H Respiratory Rate 20 21 H 22 H Blood Pressure 84/61 L 109/46 L 115/62 Pulse Oximetry 100 98 100 Oxygen Delivery Oxygen Flow Rate 12/09/24 18:13 12/09/24 18:15 12/09/24 18:48 Temperature 36.7 C Pulse Rate 112 H 112 H Respiratory Rate 21 H 19 Blood Pressure 106/53 L 111/97 H Pulse Oximetry 99 95 Oxygen Delivery Oxygen Flow Rate 12/09/24 19:20 12/09/24 19:33 12/09/24 20:00 Temperature 36.7 C Pulse Rate 107 H 117 H Respiratory Rate 23 H 24 H Blood Pressure 108/52 L 128/71 Pulse Oximetry 100 97 100 Oxygen Delivery Nasal Cannula Oxygen Flow Rate 5 12/09/24 20:29 12/09/24 21:00 12/09/24 21:29 Temperature 36.8 C 37.1 C 37.1 C Pulse Rate 116 H 104 H 106 H Respiratory Rate 19 18 18 Blood Pressure 134/72 123/56 L 123/56 L Pulse Oximetry 99 97 99 Oxygen Delivery Oxygen Flow Rate 12/09/24 21:35 12/09/24 22:00 12/09/24 22:16 Temperature Pulse Rate 105 H 103 H 103 H Respiratory Rate 19 20 21 H Blood Pressure 95/44 L 88/58 L 97/49 L Pulse Oximetry 99 100 100 Oxygen Delivery Oxygen Flow Rate 12/09/24 22:51 12/09/24 23:22 12/09/24 23:23 Temperature 37.1 C Pulse Rate 103 H 106 H Respiratory Rate 22 H 20 Blood Pressure 91/36 L 97/33 L 97/33 L Pulse Oximetry 100 100 Oxygen Delivery Oxygen Flow Rate 12/10/24 00:00 12/10/24 00:00 12/10/24 00:15 Temperature 36.6 C Pulse Rate 101 H 119 H Respiratory Rate 20 Blood Pressure 122/66 Pulse Oximetry 97 96 Oxygen Delivery Nasal Cannula Oxygen Flow Rate 3 12/10/24 02:00 12/10/24 03:57 12/10/24 04:00 Temperature 37.0 C Pulse Rate 114 H 123 H Respiratory Rate 16 Blood Pressure 123/62 Pulse Oximetry 100 97 Oxygen Delivery Nasal Cannula Oxygen Flow Rate 3 12/10/24 04:00 12/10/24 04:13 12/10/24 06:00 Temperature Pulse Rate 115 H 118 H 94 Respiratory Rate Blood Pressure Pulse Oximetry Oxygen Delivery Oxygen Flow Rate 12/10/24 07:38 12/10/24 07:38 12/10/24 07:41 Temperature 37.1 C Pulse Rate 103 H 105 H Respiratory Rate 20 18 Blood Pressure 116/44 L Pulse Oximetry 96 100 Oxygen Delivery Nasal Cannula Oxygen Flow Rate 3 12/10/24 07:55 12/10/24 09:59 12/10/24 10:17 Temperature 36.4 C L 36.6 C Pulse Rate 106 H 108 H 106 H Respiratory Rate 20 18 18 Blood Pressure 125/61 135/57 L Pulse Oximetry 92 98 Oxygen Delivery Oxygen Flow Rate 12/10/24 11:31 12/10/24 11:33 Temperature 36.7 C 37.1 C Pulse Rate 107 H 114 H Respiratory Rate 18 20 Blood Pressure 154/74 H 151/54 H Pulse Oximetry 97 95 Oxygen Delivery Nasal Cannula Oxygen Flow Rate 3 Exam 2 Narrative: GENERAL APPEARANCE: Well developed, well nourished, alert and cooperative, and appears to be in no acute distress SKIN: Inspection of the skin reveals no rashes, ulcerations or petechiae. HEENT: Sclerae anicteric and conjunctivae pink and moist. Extraocular movements were intact and pupils were equal, round, and reactive to light. The oral mucosa, hard and soft palate, tongue and posterior pharynx were normal. NECK: Supple. There was no thyroid enlargement, and no tenderness, or masses were felt. CHEST: Normal AP diameter and normal contour without any kyphoscoliosis. LUNGS: Distant breath sounds few crackles right lung base posteriorly no wheezing CARDIAC: There was a regular rate and rhythm without any murmurs, gallops, rubs. ABDOMEN: Soft and nontender with normal bowel sounds. There was no organomegaly. LYMPH NODES: No lymphadenopathy was appreciated in the neck. EXTREMITIES: No cyanosis, clubbing or edema. NEUROLOGIC: Alert and oriented x 3. Normal affect. Results Laboratory Findings 12/10/24 04:26 12/10/24 04:26 ABG, PT/INR, D-dimer: PT/INR, D-dimer PT 14.5 Seconds (11.1-14.7) 12/09/24 14:00 INR 1.1 12/09/24 14:00 Abnormal lab findings: Abnormal Labs 12/09/24 12/09/24 12/10/24 13:38 17:48 00:51 WBC 17.0 H RBC 3.44 L Hgb 7.6 L 6.7 L* 7.4 L Hct 27.9 L 24.5 L 25.7 L MCH 22.1 L MCHC 27.2 L RDW 18.8 H MPV 10.5 H Neut % (Auto) 86.6 H Lymph % (Auto) 4.5 L Lymph # (Auto) 0.76 L [place] # (Auto) 1.3 H Abs Immat Gran (auto) 0.09 H Absolute Neuts (auto) 14.7 H BUN 29 H Creatinine 1.04 H Estimated GFR 53 L Glucose 258 H POC Capillary Glucose Calcium 10.4 H NT-Pro-B Natriuret Pep 829 H Crossmatch See Detail 12/10/24 12/10/24 04:26 07:47 WBC 10.3 H RBC 3.08 L Hgb 7.0 L Hct 25.5 L MCH 22.7 L MCHC 27.5 L RDW 17.6 H MPV Neut % (Auto) Lymph % (Auto) Lymph # (Auto) [place] # (Auto) Abs Immat Gran (auto) Absolute Neuts (auto) BUN Creatinine 0.46 L Estimated GFR Glucose 124 H POC Capillary Glucose 112 H Calcium NT-Pro-B Natriuret Pep Crossmatch
[2024-12-10 11:52] LABS: Glucose Point of Care 110 mg/dl (65-105)
--- NOTE | 2024-12-10 12:14 | P.PNAN_ITS ---
Anes - Initial Pre Proc Eval Procedure: Operation Date: 12/10/24 14:00 Proposed Procedures p Esophagogastroduodenoscopy - Myron Savage MD Date/Time: 12/10/24 12:14 Surgeon: Ariel Tan MD Pre Op Diagnosis: near syncope; anemia requiring blood transfusion; Patient Data Age: 69 Gender: F Height: 1.6 m Weight: 64.6 kg Last Vital Signs Temp 37.1 C 12/10/24 11:33 Pulse 114 H 12/10/24 11:33 Resp 20 12/10/24 11:33 BP 151/54 H 12/10/24 11:33 Pulse Ox 95 12/10/24 11:33 O2 Del Method Nasal Cannula 12/10/24 11:31 O2 Flow Rate 3 12/10/24 11:31 Allergies Allergy/AdvReac Type Severity Reaction Status Date / Time IVP Dye Allergy Unknown unknown Uncoded 01/03/24 11:12 Home Medications ?Medication ?Instructions ?Recorded ?Confirmed ?Type cyclobenzaprine 10 mg tablet 5 - 10 mg (0.5 - 1 x 10 mg) PO TID 01/03/24 12/10/24 Rx PRN muscle spasm #90 tabs fluticasone propionate 50 1 spray intranasal BID #16 grams 01/03/24 12/10/24 Rx mcg/actuation nasal spray,suspension (Flonase Allergy Relief) lisinopril 5 mg tablet 5 mg PO DAILY #30 tabs 01/03/24 12/10/24 Rx metoprolol tartrate 25 mg tablet 25 mg PO BID #60 tabs 01/03/24 12/10/24 Rx omeprazole 40 mg capsule,delayed 40 mg PO DAILY #30 caps 01/03/24 12/10/24 Rx release ferrous sulfate 137 mg (45 mg 137 mg PO DAILY 01/06/24 12/10/24 History iron) tablet,extended release (Slow Fe) albuterol sulfate 90 mcg/actuation 1 - 2 inh inhalation Q4-6H PRN 10/30/24 12/10/24 Rx aerosol inhaler shortness of breath or wheezing #8.5 grams oxvufwa-faacpxnfjbdss-glukyzrt 250 2 tablet PO Q6H PRN migraine 12/10/24 12/10/24 History mg-250 mg-65 mg tablet (Migraine headache Relief) odvfwqxhswtld-GI-yakgkgzqsxden-guaif 20 ml PO Q6H PRN cold symptoms 12/10/24 12/10/24 History 10 mg-20 mg-650 mg/20 mL oral liq Laboratory Tests 12/09/24 12/09/24 12/09/24 13:38 14:00 16:14 WBC 17.0 H K/mm3 (4.5-10.0) RBC 3.44 L M/mm3 (4.2-5.4) Hgb 7.6 L g/dL (12.0-15.0) Hct 27.9 L % (37.0-47.0) MCV 81.1 fl (80-100) MCH 22.1 L pg (26-34) MCHC 27.2 L g/dl (32-36) RDW 18.8 H % (11.5-14.5) Plt Count 361 k/mm3 (150-375) MPV 10.5 H fl (7.4-10.4) Immature Gran % (Auto) 0.5 % (0-0.5) Neut % (Auto) 86.6 H % (45.5-73.1) Lymph % (Auto) 4.5 L % (18.3-44.2) [place] % (Auto) 7.7 % (2.6-8.5) Eos % (Auto) 0.2 % (0-4.4) Baso % (Auto) 0.5 % (0.2-1.2) Lymph # (Auto) 0.76 L K/mm3 (0.9-3.2) [place] # (Auto) 1.3 H K/mm3 (0.1-0.6) Eos # (Auto) 0.0 K/mm3 (0-0.3) Baso # (Auto) 0.1 K/mm3 (0.0-0.1) Abs Immat Gran (auto) 0.09 H K/mm3 (0.00-0.031) Absolute Neuts (auto) 14.7 H K/mm3 (1.3-6.7) Absolute Nucleated RBC 0.000 K/mm3 (0.0-0.012) Band Neutrophils % Not Reportable Nucleated RBC % 0.0 % (0.0-0.2) Platelet Estimate Adequate (Adequate) % Immature Plt Fraction 6.5 % (0.9-11.2) Hypochromasia 2+ Anisocytosis 1+ Schistocytes None seen PT 14.5 Seconds (11.1-14.7) INR 1.1 APTT 32.6 Seconds (22.3-36.8) Sodium 138 mmol/L (137-145) Potassium 4.4 mmol/L (3.4-5.0) Chloride 98 mmol/L (98-107) Carbon Dioxide 30 mmol/L (22-30) Anion Gap 10 mmol/L (4-12) BUN 29 H mg/dL (7-17) Creatinine 1.04 H mg/dL (0.7-1.0) Estim Creat Clear Calc 38 ml/min Estimated GFR 53 L (59 - ) Glucose 258 H mg/dL (65-110) POC Capillary Glucose Hemoglobin A1c Lactic Acid Calcium 10.4 H mg/dL (8.4-10.2) Magnesium Total Bilirubin 0.6 mg/dL (0.2-1.3) AST 21 U/L (14-36) ALT 13 U/L (6-35) Alkaline Phosphatase 74 U/L (38-126) Troponin I < 0.012 ng/mL (0.000-0.034) NT-Pro-B Natriuret Pep 829 H pg/mL (19.9-100) Total Protein 7.0 g/dL (6.3-8.2) Albumin 3.7 g/dL (3.5-5.1) Lipase 33 U/L (23-300) Nasal MRSA (PCR) Influenza A (RT-PCR) Influenza B (RT-PCR) Ur L.pneumophila Ag Mycoplasma pneumon IgM RSV (RT-PCR) SARS-CoV-2 RNA (RT-PCR) Urine Pneumococcal Ag Blood Type O Positive Antibody Screen Negative Crossmatch See Detail 12/09/24 12/09/24 12/10/24 17:47 17:48 00:51 WBC RBC Hgb 6.7 L* g/dL 7.4 L g/dL (12.0-15.0) (12.0-15.0) Hct 24.5 L % 25.7 L % (37.0-47.0) (37.0-47.0) MCV MCH MCHC RDW Plt Count MPV Immature Gran % (Auto) Neut % (Auto) Lymph % (Auto) [place] % (Auto) Eos % (Auto) Baso % (Auto) Lymph # (Auto) [place] # (Auto) Eos # (Auto) Baso # (Auto) Abs Immat Gran (auto) Absolute Neuts (auto) Absolute Nucleated RBC Band Neutrophils % Nucleated RBC % Platelet Estimate % Immature Plt Fraction Hypochromasia Anisocytosis Schistocytes PT INR APTT Sodium Potassium Chloride Carbon Dioxide Anion Gap BUN Creatinine Estim Creat Clear Calc Estimated GFR Glucose POC Capillary Glucose Hemoglobin A1c Lactic Acid 0.8 mmol/L (0.7-2.0) Calcium Magnesium Total Bilirubin AST ALT Alkaline Phosphatase Troponin I NT-Pro-B Natriuret Pep Total Protein Albumin Lipase Nasal MRSA (PCR) Influenza A (RT-PCR) Negative (Negative) Influenza B (RT-PCR) Negative (Negative) Ur L.pneumophila Ag Mycoplasma pneumon IgM RSV (RT-PCR) Negative (Negative) SARS-CoV-2 RNA (RT-PCR) Negative (Negative) Urine Pneumococcal Ag Blood Type Antibody Screen Crossmatch 12/10/24 12/10/24 12/10/24 03:47 04:26 07:47 WBC 10.3 H K/mm3 (4.5-10.0) RBC 3.08 L M/mm3 (4.2-5.4) Hgb 7.0 L g/dL (12.0-15.0) Hct 25.5 L % (37.0-47.0) MCV 82.8 fl (80-100) MCH 22.7 L pg (26-34) MCHC 27.5 L g/dl (32-36) RDW 17.6 H % (11.5-14.5) Plt Count 334 k/mm3 (150-375) MPV 9.0 fl (7.4-10.4) Immature Gran % (Auto) Neut % (Auto) Lymph % (Auto) [place] % (Auto) Eos % (Auto) Baso % (Auto) Lymph # (Auto) [place] # (Auto) Eos # (Auto) Baso # (Auto) Abs Immat Gran (auto) Absolute Neuts (auto) Absolute Nucleated RBC Band Neutrophils % Nucleated RBC % Platelet Estimate % Immature Plt Fraction Hypochromasia Anisocytosis Schistocytes PT INR APTT Sodium 140 mmol/L (137-145) Potassium 3.6 mmol/L (3.4-5.0) Chloride 107 mmol/L (98-107) Carbon Dioxide 27 mmol/L (22-30) Anion Gap 6 mmol/L (4-12) BUN 16 D mg/dL (7-17) Creatinine 0.46 L mg/dL (0.7-1.0) Estim Creat Clear Calc 81 ml/min Estimated GFR > 60 (59 - ) Glucose 124 H mg/dL (65-110) POC Capillary Glucose 112 H mg/dl (65-105) Hemoglobin A1c 4.9 % (<5.7) Lactic Acid Calcium 9.2 mg/dL (8.4-10.2) Magnesium 1.7 mg/dL (1.6-2.3) Total Bilirubin AST ALT Alkaline Phosphatase Troponin I NT-Pro-B Natriuret Pep Total Protein Albumin Lipase Nasal MRSA (PCR) Not detected (NOT DETECTE) Influenza A (RT-PCR) Influenza B (RT-PCR) Ur L.pneumophila Ag Mycoplasma pneumon IgM Pending RSV (RT-PCR) SARS-CoV-2 RNA (RT-PCR) Urine Pneumococcal Ag Blood Type Antibody Screen Crossmatch 12/10/24 12/10/24 08:57 11:49 WBC RBC Hgb Hct MCV MCH MCHC RDW Plt Count MPV Immature Gran % (Auto) Neut % (Auto) Lymph % (Auto) [place] % (Auto) Eos % (Auto) Baso % (Auto) Lymph # (Auto) [place] # (Auto) Eos # (Auto) Baso # (Auto) Abs Immat Gran (auto) Absolute Neuts (auto) Absolute Nucleated RBC Band Neutrophils % Nucleated RBC % Platelet Estimate % Immature Plt Fraction Hypochromasia Anisocytosis Schistocytes PT INR APTT Sodium Potassium Chloride Carbon Dioxide Anion Gap BUN Creatinine Estim Creat Clear Calc Estimated GFR Glucose POC Capillary Glucose 110 H mg/dl (65-105) Hemoglobin A1c Lactic Acid Calcium Magnesium Total Bilirubin AST ALT Alkaline Phosphatase Troponin I NT-Pro-B Natriuret Pep Total Protein Albumin Lipase Nasal MRSA (PCR) Influenza A (RT-PCR) Influenza B (RT-PCR) Ur L.pneumophila Ag Pending Mycoplasma pneumon IgM RSV (RT-PCR) SARS-CoV-2 RNA (RT-PCR) Urine Pneumococcal Ag Pending Blood Type Antibody Screen Crossmatch Patient hx anesthesia problems: none Family hx anesthesia problems: none Results Review: All pre-operative results and documents have been reviewed as part of the pre- operative evaluation. [facility] Past Medical History Medical History Chronic respiratory failure with hypoxia, on home oxygen therapy Chronic obstructive pulmonary disease Bleeding gastric ulcer Hypertension History of blood transfusion Seasonal allergies Tension headache Depression O2 dependent Cervicalgia Low back pain Heart disease Migraines Anxiety Anemia Surgical History Surgical History History of transcatheter aortic valve implantation (REYNA) (2022) History of laparoscopy History of esophagogastroduodenoscopy (EGD) History of (1980) Family History Family History Father Alcoholism Heart disease Hypertension Grandparent Carcinoma of colon Acute myocardial infarction Social History Social History Social History: Surrogate medical decision maker: rosa Cisneros Code status: Full code. Years smoked: 50 Smoking status: Former smoker Tobacco type: cigarettes Smoking end date: 09/23/23 Alcohol intake: never Substance use: never Substance use type: does not use Do You Feel Safe in your Home?: Yes Lack of Transportation: YES Lack of Food: Never True Current Housing: I Have Housing Concerned About Future Housing: No Difficulty Paying Gas/Electric Bills: No Difficulty Paying for Meds: No Currently Unemployed: No Education: Associate Degree Difficulty w/ Childcare or Family Care: No Spiritual care concerns: No Anes - Eval Final PreProcedure Day of Procedure 12/10/24 12:14 Patient weight: normal Heart: tachycardia Lungs: decreased breath sounds and wheezes Airway: Mallampati scale class II Neurological: alert and oriented Last oral intake: >/= 8 hours ASA classification: IV Emergent: no Anesthetic plan: proceed Anesthesia type and monitoring: general GIVS and standard monitoring Results Review: All pre-operative results and documents have been reviewed as part of the pre- operative evaluation. Informed Consent: The patient's anesthetic plan and its attendant risks and benefits were discussed with the patient/family/POA. Questions were solicited and answers provided to the satisfaction of the patient/family/POA.
[2024-12-10 13:24] LABS: Glucose Point of Care 103 mg/dl (65-105)
[2024-12-10 13:25] LABS: Glucose Point of Care 116 mg/dl (65-105)
--- NOTE | 2024-12-10 13:33 | PC.NURSE ---
On 12/10/24, the student, [Ana Flores], provided care and completed [facility] documentation on this patient. I have reviewed the student's documentation and agree with the findings.
[2024-12-10] MEDS: SODIUM CHLORIDE 0.9% IV 250 ML 10 ML (13:42)
--- NOTE | 2024-12-10 13:54 | PC.NURSE ---
On 12/10/24, the student, [Joan Dickey], provided care and completed [facility] documentation on this patient. I have reviewed the student's documentation and agree with the findings.
[2024-12-10] MEDS: lisinopriL 5 MG TABLET PO (14:19)
[2024-12-10] MEDS: METOPROLOL TARTRATE 25 MG TABLET PO ×2 (14:19→21:15)
[2024-12-10 16:03] LABS: Glucose Point of Care 152 mg/dl (65-105)
[2024-12-10] MEDS: FUROSEMIDE INJ 40 MG/4 ML VIAL 20 MG IV PUSH (17:51)
[2024-12-10] MEDS: AZITHROMYCIN 500 MG/NS 250 ML 500 MG/250 ML BAG 250 MG IVPB (17:51)
[2024-12-10 20:23] LABS: Glucose Point of Care 141 mg/dl (65-105)
[2024-12-10 22:34] LABS: Hematocrit 32.1 % (37.0-47.0); Hemoglobin 9.6 g/dL (12.0-15.0)
[2024-12-11] VITALS (16 sets, daily range): BP systolic 110–148; BP diastolic 54–78; PULSE 75–122; RESP 16–20; TEMP 36.4–37; O2SAT 92–95
[2024-12-11 04:45] LABS: Hemoglobin 9.5 g/dL (12.0-15.0); Mean Corpuscular HGB Conc 29.7 g/dl (32-36); Mean Corpuscular Hemoglobin 24.5 pg (26-34); Mean Corpuscular Volume 82.7 fl (80-100); Mean Platelet Volume 9.3 fl (7.4-10.4); Platelet Count Result 339 k/mm3 (150-375); Red Blood Count 3.87 M/mm3 (4.2-5.4); Red Cell Distribution Width 17.7 % (11.5-14.5)
[2024-12-11] MEDS: oxyCODONE HCL (*CRX) 5 MG TAB IR PO ×4 (05:02→21:57)
[2024-12-11 05:06] LABS: Anion Gap 5 mmol/L (4-12); Blood Urea Nitrogen 8 mg/dL (7-17); Calcium 9.3 mg/dL (8.4-10.2); Carbon Dioxide 34 mmol/L (22-30); Chloride 100 mmol/L (98-107); Estimated CRCL calculation 77 ml/min; Estimated Glomerular Filt Rate > 60; Glucose 227 mg/dL (65-110); Potassium 2.9 mmol/L (3.4-5.0); Sodium 139 mmol/L (137-145)
[2024-12-11 07:49] LABS: Glucose Point of Care 107 mg/dl (65-105)
[2024-12-11] MEDS: FERROUS SULFATE DRIED 142 MG TABCR PO (08:24)
[2024-12-11] MEDS: guaiFENesin 12 HR 600 MG TABCR 1200 MG PO ×2 (08:24→21:49)
[2024-12-11] MEDS: lisinopriL 5 MG TABLET PO (08:25)
[2024-12-11] MEDS: METOPROLOL TARTRATE 25 MG TABLET PO ×2 (08:25→21:50)
[2024-12-11] MEDS: PANTOPRAZOLE 40 MG TABLET PO (08:25)
[2024-12-11] MEDS: IPRATROPIUM 0.5 MG/ALBUTEROL SULFATE 2.5 MG AMPUL.NEB 3 ML INHALATION ×3 (08:27→21:04)
--- NOTE | 2024-12-11 08:41 | P.PNIM_ITS ---
Progress Note: A&P Assessment and Plan (1) Fecal occult blood test positive: Code(s): R19.5 - Other fecal abnormalities Status: Acute (2) Sepsis: Qualifiers: Sepsis acute organ dysfunction status: unspecified Sepsis type: sepsis due to unspecified organism Qualified Code(s): A41.9 - Sepsis, unspecified organism Code(s): A41.9 - Sepsis, unspecified organism Status: Acute (3) Pneumonia: Qualifiers: Laterality: bilateral Lung location: unspecified part of lung Pneumonia type: due to unspecified organism Qualified Code(s): J18.9 - Pneumonia, unspecified organism Code(s): J18.9 - Pneumonia, unspecified organism Status: Acute (4) Acute kidney injury: Code(s): N17.9 - Acute kidney failure, unspecified Status: Acute (5) Mass of right lung: Code(s): R91.8 - Other nonspecific abnormal finding of lung field Status: Acute (6) Hyperglycemia: Code(s): R73.9 - Hyperglycemia, unspecified Status: Acute (7) Chronic obstructive pulmonary disease: Code(s): J44.9 - Chronic obstructive pulmonary disease, unspecified Status: Acute (8) Chronic respiratory failure with hypoxia, on home oxygen therapy: Code(s): J96.11 - Chronic respiratory failure with hypoxia; Z99.81 - Dependence on supplemental oxygen Status: Acute (9) Anemia: Qualifiers: Anemia type: iron deficiency Iron deficiency anemia type: chronic blood loss Qualified Code(s): D50.0 - Iron deficiency anemia secondary to blood loss (chronic) Code(s): D64.9 - Anemia, unspecified Status: Acute (10) Hypertension: Code(s): I10 - Essential (primary) hypertension Status: Acute Plan The patient presented to the emergency department with complaints of weakness and dizziness after having a dark stool as detailed in Acute on chronic blood-loss anemia, GI bleeding Patient has chronic anemia, hemoglobin dropped to 6.7 upon arrival in the ED, patient has black stools Suggesting GI bleeding and acute on chronic blood-loss anemia Received 1 pack RBC, hemoglobin initially 7.4, dropped to 7.0 today Patient is a tachycardia, heart rate well on sick, tachypnea, blood pressure soft. Will transfuse 2 pack RBC Keep patient p.o. On Protonix 40 mg b.i.d. IV push Follow-up hemoglobin q.6 hours, transfuse p.r.n. Appreciate GI consultation, EGD shows no active bleeding, med gastritis in the antrum Hemoglobin stable today 9.5 Change of Protonix 40 mg daily p.o. Sepsis and pneumonia sepsis criteria with tachycardia, hypotension, and leukocytosis suspected pneumonia, received azithromycin ceftriaxone, will continue antibiotics Received fluid resuscitation Blood and sputum cultures pending Chest CT showed emphysema disease with concerns for a pleural based mass V/Q scan: Intermediate probability for pulmonary embolism. Venous Doppler shows no DVT of lower extremities Consulted pulmonology by daryn Appreciate baggagemaster consultation, management per baggagemaster Hypertension Patient has hypotension, Hold hypertension medication Uncontrolled type 2 diabetes Random glucose was 258. Continue insulin sliding scale Optimize medications for controlling glucose intact range Subjective Date/time seen: 12/11/24 08:41 Interval history: I saw examined patient today, patient still has abdomen pain, feels tired, denies nausea vomiting lightheadedness. Patient still has right chest pain worse with cough and deep breath Hemoglobin stable 9.5 after receiving 2 pack RBC yesterday EGD unremarkable except mild gastritis Exam Narrative: GENERAL: Pleasant, in no acute distress. Well-nourished. - EYES: EOMI. Anicteric. - HENT: Moist mucous membranes. - LUNGS: Clear to auscultation bilater ally, no wheezing, rhonchi, or rales. - CARDIOVASCULAR: Regular rate and rhyth m. No murmur. No JVD. - ABDOMEN: Soft, non-tender and non-dist ended. No palpable masses. - EXTREMITIES: No edema. Peripheral puls es 2+. Non-tender. - NEUROLOGIC: No focal neurological defi cits. CN II-XII grossly intact. - PSYCHIATRIC: Awake, Alert and oriented x 3. Appropriate mood and affect. - SKIN: No rashes or lesions. Warm. - LYMPH: No cervical lymphadenopathy. Objective Data Vital Signs Vital Signs: Vital Signs - 24 hr 12/10/24 09:59 12/10/24 10:00 12/10/24 10:17 Temperature 97.5 F L 98 F Pulse Rate 108 H 106 H 106 H Respiratory Rate 18 18 Blood Pressure 125/61 135/57 L Pulse Oximetry 92 98 Oxygen Delivery Oxygen Flow Rate 12/10/24 11:31 12/10/24 11:33 12/10/24 12:15 Temperature 98.1 F 98.7 F 97.6 F Pulse Rate 107 H 114 H 106 H Respiratory Rate 18 20 18 Blood Pressure 154/74 H 151/54 H 155/74 H Pulse Oximetry 97 95 96 Oxygen Delivery Nasal Cannula Oxygen Flow Rate 3 12/10/24 12:35 12/10/24 12:45 12/10/24 12:55 Temperature Pulse Rate 122 H 119 H 114 H Respiratory Rate 25 H 27 H 25 H Blood Pressure 147/87 H 168/72 H 147/67 H Pulse Oximetry 96 99 99 Oxygen Delivery Nasal Cannula Nasal Cannula Nasal Cannula Oxygen Flow Rate 4 3 3 12/10/24 13:29 12/10/24 13:31 12/10/24 13:35 Temperature 97.7 F 97.7 F Pulse Rate 98 119 H 119 H Respiratory Rate 20 18 19 Blood Pressure 152/80 H 152/80 H Pulse Oximetry 96 96 Oxygen Delivery Oxygen Flow Rate 12/10/24 13:40 12/10/24 13:51 12/10/24 14:00 Temperature 97.6 F Pulse Rate 105 H 108 H 112 H Respiratory Rate 20 18 Blood Pressure 166/77 H Pulse Oximetry 98 Oxygen Delivery Oxygen Flow Rate 12/10/24 14:19 12/10/24 14:51 12/10/24 15:51 Temperature 98.2 F 99.1 F Pulse Rate 108 H 101 H 90 Respiratory Rate 20 16 Blood Pressure 152/78 H 126/72 Pulse Oximetry 95 98 Oxygen Delivery Oxygen Flow Rate 12/10/24 16:00 12/10/24 16:00 12/10/24 16:51 Temperature 99.1 F 98.1 F Pulse Rate 90 88 90 Respiratory Rate 16 19 Blood Pressure 126/72 145/67 H Pulse Oximetry 98 95 Oxygen Delivery Oxygen Flow Rate 12/10/24 18:00 12/10/24 18:33 12/10/24 19:51 Temperature Pulse Rate 95 95 Respiratory Rate 20 Blood Pressure 119/55 L Pulse Oximetry Oxygen Delivery Oxygen Flow Rate 12/10/24 19:55 12/10/24 20:00 12/10/24 20:00 Temperature 98.4 F Pulse Rate 95 96 95 Respiratory Rate 18 18 Blood Pressure 125/79 Pulse Oximetry 97 97 97 Oxygen Delivery Nasal Cannula Nasal Cannula Oxygen Flow Rate 3 3 12/10/24 20:00 12/10/24 21:15 12/10/24 21:50 Temperature Pulse Rate 95 106 H 92 Respiratory Rate Blood Pressure Pulse Oximetry Oxygen Delivery Oxygen Flow Rate 12/10/24 23:38 12/10/24 23:38 12/10/24 23:40 Temperature 98.1 F Pulse Rate 88 88 84 Respiratory Rate 18 18 Blood Pressure 137/79 Pulse Oximetry 97 93 Oxygen Delivery Nasal Cannula Oxygen Flow Rate 3 12/11/24 02:00 12/11/24 04:00 12/11/24 04:00 Temperature 98.5 F Pulse Rate 86 96 96 Respiratory Rate 18 18 Blood Pressure 110/54 L Pulse Oximetry 95 95 Oxygen Delivery Nasal Cannula Oxygen Flow Rate 3 12/11/24 04:00 12/11/24 06:00 12/11/24 07:56 Temperature 97.5 F L Pulse Rate 96 86 94 Respiratory Rate 16 Blood Pressure 148/60 H Pulse Oximetry 95 Oxygen Delivery Oxygen Flow Rate 12/11/24 08:25 Temperature Pulse Rate 122 H Respiratory Rate Blood Pressure Pulse Oximetry Oxygen Delivery Oxygen Flow Rate Intake/Output Intake/Output: Intake & Output 12/08/24 12/09/24 12/10/24 12/11/24 23:59 23:59 23:59 23:59 Intake Total 3900 1140 500 Output Total 1600 200 Balance 3900 -460 300 Meds/Results Medications: Active Medications Generic Name Dose Route Start Last Admin Trade Name Freq PRN Reason Stop Dose Admin Acetaminophen 650 mg 12/09/24 18:53 12/10/24 01:00 Acetaminophen 325 Mg Tablet PO 650 mg Q4H PRN Administration Mild Pain (1-3) or Fever Albuterol/Ipratropium 3 ml 12/10/24 08:00 12/11/24 08:27 Ipratropium 0.5 Mg/Albuterol Sulfate 2.5 Mg Ampul.Neb 3 Ml INHALATION 3 ml Q6HRT MINGO Administration Dextrose 12.5 gm 12/10/24 03:00 Dextrose 50% 25 Gm/50 Ml Syringe IV PUSH PRN PRN Hypoglycemia Protocol Ferrous Sulfate 142 mg 12/10/24 08:00 12/11/24 08:24 Ferrous Sulfate Dried 142 Mg Tabcr PO 142 mg DAILY@0800 MINGO Administration Fluticasone Propionate 1 spray 12/10/24 09:00 12/10/24 17:07 Fluticasone Propionate 0.05% Na Spr 16 Gm Btl (*Bkc) NASAL Not Given BID MINGO Glucagon 1 mg 12/10/24 03:00 Glucagon For Inj 1 Mg Vial IM PRN PRN Hypoglycemia Protocol Glucose 15 gm 12/10/24 03:00 Glucose Oral Gel 15 Gm Of Glucse In 37.5 Gm Tube PO PRN PRN Hypoglycemia Protocol Guaifenesin 1,200 mg 12/10/24 09:00 12/11/24 08:24 Guaifenesin 12 Hr 600 Mg Tabcr PO 1,200 mg Q12HR MINGO Administration Dextrose 1,000 mls @ 100 mls/hr 12/10/24 03:00 Dextrose 5% 1,000 Ml IVPB PRN PRN Hypoglycemia Protocol Azithromycin 500 mg in 250 mls @ 250 mls/hr 12/10/24 19:00 12/10/24 17:51 Zithromax IVPB 250 mls/hr Q24H MINGO Administration Ceftriaxone Sodium 1 gm in 50 mls @ 100 mls/hr 12/10/24 11:55 12/11/24 08:26 Rocephin 1 Gm/Ns 50 Ml IVPB 100 mls/hr Q12HR MINGO Administration Insulin Aspart 2 - 5 units 12/10/24 08:00 12/10/24 17:07 Insulin Aspart (*Bkc) 100 Units/Ml SUB-Q Not Given TIDWM [facility] Protocol Insulin Aspart 1 - 2 units 12/10/24 21:00 12/10/24 21:09 Insulin Aspart (*Bkc) 100 Units/Ml SUB-Q Not Given HS MINGO Protocol Lisinopril 5 mg 12/10/24 14:05 12/11/24 08:25 Lisinopril 5 Mg Tablet PO 5 mg QAM MINGO Administration Metoprolol Tartrate 25 mg 12/10/24 14:05 12/11/24 08:25 Metoprolol Tartrate 25 Mg Tablet PO 25 mg Q12HR MINGO Administration Morphine Sulfate 2 mg 12/10/24 03:58 12/10/24 08:36 Morphine Sulfate (*Crx) 2 Mg/Ml Inj IV PUSH 2 mg Q4H PRN Administration Pain Rated 7-10 Ondansetron HCl 4 mg 12/09/24 18:53 Ondansetron Inj 4 Mg/2 Ml Vial IV PUSH Q4H PRN Nausea Oxycodone HCl 5 mg 12/10/24 10:48 12/11/24 05:02 Oxycodone Hcl (*Crx) 5 Mg Tab Ir PO 5 mg Q4H PRN Administration Pain Rated 7-10 Pantoprazole Sodium 40 mg 12/11/24 09:00 12/11/24 08:25 Pantoprazole 40 Mg Tablet PO 40 mg QAM MINGO Administration Radiology Results: ITS Impressions Chest X-Ray 12/09/24 16:39 IMPRESSION: Bilateral pneumonia. Underlying fibrotic/emphysematous Changes. Chest/Abdomen/Pelvis CT 12/09/24 17:27 IMPRESSION: Panlobular emphysematous disease. Findings within the right mid to lower lung field for which a pleural-based mass is suspected. Small right-sided pleural effusion is also noted. No acute pathology within the abdomen or pelvis. Abdomen Ultrasound 12/09/24 18:06 IMPRESSION: Limited evaluation of pancreas secondary to overlying bowel gas. No evidence of cholecystitis or cholelithiasis, consistent with recent CT examination, performed on the same day. Pulmonary Perfusion Imaging 12/10/24 15:37 IMPRESSION: 1. Intermediate probability for pulmonary embolism. 2. Small bilateral pleural effusions, right greater than left 3. Diffuse bilateral decreased washout of activity on the ventilation images consistent with obstructive pulmonary disease. Venous Doppler Study 12/11/24 08:13 IMPRESSION: Negative bilateral lower extremity venous US. No deep vein thrombosis. Labs Labs: Laboratory Results - last 24 hr 12/09/24 12/10/24 12/10/24 13:38 11:49 13:05 WBC RBC Hgb Hct MCV MCH MCHC RDW Plt Count MPV Sodium Potassium Chloride Carbon Dioxide Anion Gap BUN Creatinine Estim Creat Clear Calc Estimated GFR Glucose POC Capillary Glucose 110 H 103 Calcium Blood Type O Positive Antibody Screen Negative Crossmatch See Detail 12/10/24 12/10/24 12/10/24 13:21 15:59 20:20 WBC RBC Hgb Hct MCV MCH MCHC RDW Plt Count MPV Sodium Potassium Chloride Carbon Dioxide Anion Gap BUN Creatinine Estim Creat Clear Calc Estimated GFR Glucose POC Capillary Glucose 116 H 152 H 141 H Calcium Blood Type Antibody Screen Crossmatch 12/10/24 12/11/24 12/11/24 22:23 04:02 07:44 WBC 9.0 RBC 3.87 L Hgb 9.6 L 9.5 L Hct 32.1 L 32.0 L MCV 82.7 MCH 24.5 L D MCHC 29.7 L RDW 17.7 H Plt Count 339 MPV 9.3 Sodium 139 Potassium 2.9 L Chloride 100 Carbon Dioxide 34 H Anion Gap 5 BUN 8 D Creatinine 0.49 L Estim Creat Clear Calc 77 Estimated GFR > 60 Glucose 227 H POC Capillary Glucose 107 H Calcium 9.3 Blood Type Antibody Screen Crossmatch
--- NOTE | 2024-12-11 10:32 | PM.PNPUL ---
Progress Note: A&P Assessment and Plan (1) Emphysema lung: Code(s): J43.9 - Emphysema, unspecified Status: Acute (2) Pneumonia: Qualifiers: Laterality: bilateral Lung location: unspecified part of lung Pneumonia type: due to unspecified organism Qualified Code(s): J18.9 - Pneumonia, unspecified organism Code(s): J18.9 - Pneumonia, unspecified organism Status: Acute Assessment and Plan: This 69-year-old female with a history of COPD and chronic hypoxemic respiratory failure on supplemental oxygen presented with right pleuritic chest pain, leukocytosis, and new lung infiltrates/consolidation in the right subpleural area. Her presentation, along with diagnostic studies, suggests community-acquired pneumonia, most likely pneumococcal, given her positive response to antibiotics and declining white blood cell count. The patient continues to experience right pleuritic chest pain, necessitating the use of opiates for improved pain management. Patient underwent lower extremity study that showed no evidence of a DVT. She also had V/Q scan that was read as of intermediate possibility for pulmonary embolism. It appears as though the patient's most likely diagnosis is community-acquired pneumonia which with antibiotics seems to respond. WBC is back into the normal range although the patient continues to have a right pleuritic chest pain related to peripheral location of pneumonia. Plan: Continue with current antibiotic regimen repeat chest x-ray in a.m. patient should be started on DVT prophylaxis, mechanical or pharmaceutical. Will continue to follow the patient with you. (3) Chronic obstructive pulmonary disease: Code(s): J44.9 - Chronic obstructive pulmonary disease, unspecified Status: Acute (4) Chronic respiratory failure with hypoxia, on home oxygen therapy: Code(s): J96.11 - Chronic respiratory failure with hypoxia; Z99.81 - Dependence on supplemental oxygen Status: Acute Subjective Date/time seen: 12/11/24 10:32 Interval history: Patient continues to complain of right pleuritic chest pain. She has no fever chills hemoptysis. Has undergone V/Q scan and lower extremity venous study. Review of Systems Review of Systems: All systems reviewed & are unremarkable except as noted in HPI and below (HPI and below) Exam Narrative: GENERAL APPEARANCE: Well developed, well nourished, alert and cooperative, and appears to be in no acute distress SKIN: Inspection of the skin reveals no rashes, ulcerations or petechiae. HEENT: Sclerae anicteric and conjunctivae pink and moist. Extraocular movements were intact and pupils were equal, round, and reactive to light. The oral mucosa, hard and soft palate, tongue and posterior pharynx were normal. NECK: Supple. There was no thyroid enlargement, and no tenderness, or masses were felt. CHEST: Normal AP diameter and normal contour without any kyphoscoliosis. LUNGS: Distant breath sounds few crackles right lung base posteriorly no wheezing CARDIAC: There was a regular rate and rhythm without any murmurs, gallops, rubs. ABDOMEN: Soft and nontender with normal bowel sounds. There was no organomegaly. LYMPH NODES: No lymphadenopathy was appreciated in the neck. EXTREMITIES: No cyanosis, clubbing or edema. NEUROLOGIC: Alert and oriented x 3. Normal affect. Objective Data Vital Signs Vital Signs: Vital Signs - 24 hr 12/10/24 11:31 12/10/24 11:33 12/10/24 12:15 Temperature 36.7 C 37.1 C 36.4 C Pulse Rate 107 H 114 H 106 H Respiratory Rate 18 20 18 Blood Pressure 154/74 H 151/54 H 155/74 H Pulse Oximetry 97 95 96 Oxygen Delivery Nasal Cannula Oxygen Flow Rate 3 12/10/24 12:35 12/10/24 12:45 12/10/24 12:55 Temperature Pulse Rate 122 H 119 H 114 H Respiratory Rate 25 H 27 H 25 H Blood Pressure 147/87 H 168/72 H 147/67 H Pulse Oximetry 96 99 99 Oxygen Delivery Nasal Cannula Nasal Cannula Nasal Cannula Oxygen Flow Rate 4 3 3 12/10/24 13:29 12/10/24 13:31 12/10/24 13:35 Temperature 36.5 C 36.5 C Pulse Rate 98 119 H 119 H Respiratory Rate 20 18 19 Blood Pressure 152/80 H 152/80 H Pulse Oximetry 96 96 Oxygen Delivery Oxygen Flow Rate 12/10/24 13:40 12/10/24 13:51 12/10/24 14:00 Temperature 36.4 C Pulse Rate 105 H 108 H 112 H Respiratory Rate 20 18 Blood Pressure 166/77 H Pulse Oximetry 98 Oxygen Delivery Oxygen Flow Rate 12/10/24 14:19 12/10/24 14:51 12/10/24 15:51 Temperature 36.8 C 37.3 C Pulse Rate 108 H 101 H 90 Respiratory Rate 20 16 Blood Pressure 152/78 H 126/72 Pulse Oximetry 95 98 Oxygen Delivery Oxygen Flow Rate 12/10/24 16:00 12/10/24 16:00 12/10/24 16:51 Temperature 37.3 C 36.7 C Pulse Rate 90 88 90 Respiratory Rate 16 19 Blood Pressure 126/72 145/67 H Pulse Oximetry 98 95 Oxygen Delivery Oxygen Flow Rate 12/10/24 18:00 12/10/24 18:33 12/10/24 19:51 Temperature Pulse Rate 95 95 Respiratory Rate 20 Blood Pressure 119/55 L Pulse Oximetry Oxygen Delivery Oxygen Flow Rate 12/10/24 19:55 12/10/24 20:00 12/10/24 20:00 Temperature 36.9 C Pulse Rate 95 96 95 Respiratory Rate 18 18 Blood Pressure 125/79 Pulse Oximetry 97 97 97 Oxygen Delivery Nasal Cannula Nasal Cannula Oxygen Flow Rate 3 3 12/10/24 20:00 12/10/24 21:15 12/10/24 21:50 Temperature Pulse Rate 95 106 H 92 Respiratory Rate Blood Pressure Pulse Oximetry Oxygen Delivery Oxygen Flow Rate 12/10/24 23:38 12/10/24 23:38 12/10/24 23:40 Temperature 36.7 C Pulse Rate 88 88 84 Respiratory Rate 18 18 Blood Pressure 137/79 Pulse Oximetry 97 93 Oxygen Delivery Nasal Cannula Oxygen Flow Rate 3 12/11/24 02:00 12/11/24 04:00 12/11/24 04:00 Temperature 36.9 C Pulse Rate 86 96 96 Respiratory Rate 18 18 Blood Pressure 110/54 L Pulse Oximetry 95 95 Oxygen Delivery Nasal Cannula Oxygen Flow Rate 3 12/11/24 04:00 12/11/24 06:00 12/11/24 07:56 Temperature 36.4 C L Pulse Rate 96 86 94 Respiratory Rate 16 Blood Pressure 148/60 H Pulse Oximetry 95 Oxygen Delivery Oxygen Flow Rate 12/11/24 08:25 Temperature Pulse Rate 122 H Respiratory Rate Blood Pressure Pulse Oximetry Oxygen Delivery Oxygen Flow Rate Intake/Output Intake/Output: Intake & Output 12/08/24 12/09/24 12/10/24 12/11/24 23:59 23:59 23:59 23:59 Intake Total 3900 1140 740 Output Total 1600 200 Balance 3900 -460 540 Meds/Results Medications: Active Medications Generic Name Dose Route Start Last Admin Trade Name Zita PRN Reason Stop Dose Admin Acetaminophen 650 mg 12/09/24 18:53 12/10/24 01:00 Acetaminophen 325 Mg Tablet PO 650 mg Q4H PRN Administration Mild Pain (1-3) or Fever Albuterol/Ipratropium 3 ml 12/10/24 08:00 12/11/24 08:27 Ipratropium 0.5 Mg/Albuterol Sulfate 2.5 Mg Ampul.Neb 3 Ml INHALATION 3 ml Q6HRT MINGO Administration Dextrose 12.5 gm 12/10/24 03:00 Dextrose 50% 25 Gm/50 Ml Syringe IV PUSH PRN PRN Hypoglycemia Protocol Ferrous Sulfate 142 mg 12/10/24 08:00 12/11/24 08:24 Ferrous Sulfate Dried 142 Mg Tabcr PO 142 mg DAILY@0800 MINGO Administration Fluticasone Propionate 1 spray 12/10/24 09:00 12/10/24 17:07 Fluticasone Propionate 0.05% Na Spr 16 Gm Btl (*Bkc) NASAL Not Given BID MINGO Glucagon 1 mg 12/10/24 03:00 Glucagon For Inj 1 Mg Vial IM PRN PRN Hypoglycemia Protocol Glucose 15 gm 12/10/24 03:00 Glucose Oral Gel 15 Gm Of Glucse In 37.5 Gm Tube PO PRN PRN Hypoglycemia Protocol Guaifenesin 1,200 mg 12/10/24 09:00 12/11/24 08:24 Guaifenesin 12 Hr 600 Mg Tabcr PO 1,200 mg Q12HR MINGO Administration Dextrose 1,000 mls @ 100 mls/hr 12/10/24 03:00 Dextrose 5% 1,000 Ml IVPB PRN PRN Hypoglycemia Protocol Azithromycin 500 mg in 250 mls @ 250 mls/hr 12/10/24 19:00 12/10/24 17:51 Zithromax IVPB 250 mls/hr Q24H MINGO Administration Ceftriaxone Sodium 1 gm in 50 mls @ 100 mls/hr 12/10/24 11:55 12/11/24 08:26 Rocephin 1 Gm/Ns 50 Ml IVPB 100 mls/hr Q12HR [facility] Administration Insulin Aspart 2 - 5 units 12/10/24 08:00 12/10/24 17:07 Insulin Aspart (*Bkc) 100 Units/Ml SUB-Q Not Given TIDWM [facility] Protocol Insulin Aspart 1 - 2 units 12/10/24 21:00 12/10/24 21:09 Insulin Aspart (*Bkc) 100 Units/Ml SUB-Q Not Given HS [facility] Protocol Lisinopril 5 mg 12/10/24 14:05 12/11/24 08:25 Lisinopril 5 Mg Tablet PO 5 mg QAM MING[facility] Administration Metoprolol Tartrate 25 mg 12/10/24 14:05 12/11/24 08:25 Metoprolol Tartrate 25 Mg Tablet PO 25 mg Q12HR MINGO Administration Morphine Sulfate 2 mg 12/10/24 03:58 12/10/24 08:36 Morphine Sulfate (*Crx) 2 Mg/Ml Inj IV PUSH 2 mg Q4H PRN Administration Pain Rated 7-10 Ondansetron HCl 4 mg 12/09/24 18:53 Ondansetron Inj 4 Mg/2 Ml Vial IV PUSH Q4H PRN Nausea Oxycodone HCl 5 mg 12/10/24 10:48 12/11/24 08:46 Oxycodone Hcl (*Crx) 5 Mg Tab Ir PO 5 mg Q4H PRN Administration Pain Rated 7-10 Pantoprazole Sodium 40 mg 12/11/24 09:00 12/11/24 08:25 Pantoprazole 40 Mg Tablet PO 40 mg QAM [facility] Administration Radiology Results: ITS Impressions Chest X-Ray 12/09/24 16:39 IMPRESSION: Bilateral pneumonia. Underlying fibrotic/emphysematous Changes. Chest/Abdomen/Pelvis CT 12/09/24 17:27 IMPRESSION: Panlobular emphysematous disease. Findings within the right mid to lower lung field for which a pleural-based mass is suspected. Small right-sided pleural effusion is also noted. No acute pathology within the abdomen or pelvis. Abdomen Ultrasound 12/09/24 18:06 IMPRESSION: Limited evaluation of pancreas secondary to overlying bowel gas. No evidence of cholecystitis or cholelithiasis, consistent with recent CT examination, performed on the same day. Pulmonary Perfusion Imaging 12/10/24 15:37 IMPRESSION: 1. Intermediate probability for pulmonary embolism. 2. Small bilateral pleural effusions, right greater than left 3. Diffuse bilateral decreased washout of activity on the ventilation images consistent with obstructive pulmonary disease. Venous Doppler Study 12/11/24 08:13 IMPRESSION: Negative bilateral lower extremity venous US. No deep vein thrombosis. Labs Labs: Laboratory Results - last 24 hr 12/09/24 12/10/24 12/10/24 13:38 11:49 13:05 WBC RBC Hgb Hct MCV MCH MCHC RDW Plt Count MPV Sodium Potassium Chloride Carbon Dioxide Anion Gap BUN Creatinine Estim Creat Clear Calc Estimated GFR Glucose POC Capillary Glucose 110 H 103 Calcium Blood Type O Positive Antibody Screen Negative Crossmatch See Detail 12/10/24 12/10/24 12/10/24 13:21 15:59 20:20 WBC RBC Hgb Hct MCV MCH MCHC RDW Plt Count MPV Sodium Potassium Chloride Carbon Dioxide Anion Gap BUN Creatinine Estim Creat Clear Calc Estimated GFR Glucose POC Capillary Glucose 116 H 152 H 141 H Calcium Blood Type Antibody Screen Crossmatch 12/10/24 12/11/24 12/11/24 22:23 04:02 07:44 WBC 9.0 RBC 3.87 L Hgb 9.6 L 9.5 L Hct 32.1 L 32.0 L MCV 82.7 MCH 24.5 L D MCHC 29.7 L RDW 17.7 H Plt Count 339 MPV 9.3 Sodium 139 Potassium 2.9 L Chloride 100 Carbon Dioxide 34 H Anion Gap 5 BUN 8 D Creatinine 0.49 L Estim Creat Clear Calc 77 Estimated GFR > 60 Glucose 227 H POC Capillary Glucose 107 H Calcium 9.3 Blood Type Antibody Screen Crossmatch
[2024-12-11 11:40] LABS: Glucose Point of Care 151 mg/dl (65-105)
[2024-12-11] MEDS: POTASSIUM CHLORIDE INJ 40 MEQ in SODIUM CHLORIDE 0.9% IV 500 ML 130 MEQ IVPB (12:55)
[2024-12-11] MEDS: POTASSIUM CHLORIDE 20 MEQ ER TABLET 40 MEQ PO (12:57)
--- NOTE | 2024-12-11 13:48 | PC.NURSE ---
This patient, Inez Delgado, was transferred to [[facility] ] on 12/11/24 at 1348. Personal belongings sent with patient. Report given to [ginger ]. Appropriate documentation sent with patient.
[2024-12-11] MEDS: ONDANSETRON INJ 4 MG/2 ML VIAL IV PUSH ×2 (13:58→19:06)
--- NOTE | 2024-12-11 16:01 | P.PNGI_ITS ---
Progress Note: A&P Assessment and Plan (1) Fecal occult blood test positive: Code(s): R19.5 - Other fecal abnormalities Status: Acute Assessment and Plan: egd no major findings patient prefers to have colonoscopy as outpatient once fully recovered from pneumonia will set up in few more weeks as outpatient will follow as needed (2) Anemia: Qualifiers: Anemia type: iron deficiency Iron deficiency anemia type: chronic blood loss Qualified Code(s): D50.0 - Iron deficiency anemia secondary to blood loss (chronic) Code(s): D64.9 - Anemia, unspecified Status: Acute Assessment and Plan: colonoscopy as outpatient also probably will need provider relations rep follow-up (3) Sepsis: Qualifiers: Sepsis type: sepsis due to unspecified organism Sepsis acute organ dysfunction status: unspecified Qualified Code(s): A41.9 - Sepsis, unspecified organism Code(s): A41.9 - Sepsis, unspecified organism Status: Acute (4) Pneumonia: Qualifiers: Laterality: bilateral Lung location: unspecified part of lung Pneumonia type: due to unspecified organism Qualified Code(s): J18.9 - Pneumonia, unspecified organism Code(s): J18.9 - Pneumonia, unspecified organism Status: Acute Assessment and Plan: better on treatment (5) COPD (chronic obstructive pulmonary disease): Qualifiers: COPD type: unspecified COPD Qualified Code(s): J44.9 - Chronic obstructive pulmonary disease, unspecified Code(s): J44.9 - Chronic obstructive pulmonary disease, unspecified Status: Acute (6) Dark stools: Code(s): R19.5 - Other fecal abnormalities Status: Acute Subjective Date/time seen: 12/11/24 16:01 Interval history: still with pleuritic chest pain but overall feeling better Review of Systems Review of Systems: All systems reviewed & are unremarkable except as noted in HPI and below Exam Const: General: comfortable and no acute distress HENMT: Face/Nose/Sinus: Normal nares present Eyes: General: appearance normal, both eyes and all related structures Resp: Other: few crackles, better Cardio: Rate: regular rate Rhythm: regular rhythm GI: Inspection: non-distended GI Palp: Yes Soft to palpation and No Tenderness to palpation present (GI) Auscultation: normal bowel sounds Skin: General skin exam: normal color Neuro: Speech: normal speech Extrem: General: normal to inspection Psych: Mental Status: mental status grossly normal Objective Data Vital Signs Vital Signs: Vital Signs - 24 hr 12/10/24 16:51 12/10/24 18:00 12/10/24 18:33 Temperature 98.1 F Pulse Rate 90 95 Respiratory Rate 19 Blood Pressure 145/67 H 119/55 L Pulse Oximetry 95 Oxygen Delivery Oxygen Flow Rate 12/10/24 19:51 12/10/24 19:55 12/10/24 20:00 Temperature 98.4 F Pulse Rate 95 95 96 Respiratory Rate 20 18 Blood Pressure 125/79 Pulse Oximetry 97 97 Oxygen Delivery Nasal Cannula Oxygen Flow Rate 3 12/10/24 20:00 12/10/24 20:00 12/10/24 21:15 Temperature Pulse Rate 95 95 106 H Respiratory Rate 18 Blood Pressure Pulse Oximetry 97 Oxygen Delivery Nasal Cannula Oxygen Flow Rate 3 12/10/24 21:50 12/10/24 23:38 12/10/24 23:38 Temperature Pulse Rate 92 88 88 Respiratory Rate 18 Blood Pressure Pulse Oximetry 97 Oxygen Delivery Nasal Cannula Oxygen Flow Rate 3 12/10/24 23:40 12/11/24 02:00 12/11/24 04:00 Temperature 98.1 F 98.5 F Pulse Rate 84 86 96 Respiratory Rate 18 18 Blood Pressure 137/79 110/54 L Pulse Oximetry 93 95 Oxygen Delivery Oxygen Flow Rate 12/11/24 04:00 12/11/24 04:00 12/11/24 06:00 Temperature Pulse Rate 96 96 86 Respiratory Rate 18 Blood Pressure Pulse Oximetry 95 Oxygen Delivery Nasal Cannula Oxygen Flow Rate 3 12/11/24 07:56 12/11/24 08:00 12/11/24 08:21 Temperature 97.5 F L Pulse Rate 94 114 H 114 H Respiratory Rate 16 20 Blood Pressure 148/60 H Pulse Oximetry 95 Oxygen Delivery Oxygen Flow Rate 12/11/24 08:25 12/11/24 08:42 12/11/24 10:00 Temperature Pulse Rate 122 H 112 H 85 Respiratory Rate 20 Blood Pressure Pulse Oximetry Oxygen Delivery Oxygen Flow Rate 12/11/24 13:25 12/11/24 13:35 12/11/24 14:44 Temperature 98.6 F Pulse Rate 81 102 H 75 Respiratory Rate 20 20 18 Blood Pressure 139/78 Pulse Oximetry 95 Oxygen Delivery Oxygen Flow Rate Intake/Output Intake/Output: Intake & Output 12/08/24 12/09/24 12/10/24 12/11/24 23:59 23:59 23:59 23:59 Intake Total 3900 1140 980 Output Total 1600 200 Balance 3900 -460 780 Meds/Results Medications: Active Medications Generic Name Dose Route Start Last Admin Trade Name Freq PRN Reason Stop Dose Admin Acetaminophen 650 mg 12/09/24 18:53 12/10/24 01:00 Acetaminophen 325 Mg Tablet PO 650 mg Q4H PRN Administration Mild Pain (1-3) or Fever Albuterol/Ipratropium 3 ml 12/10/24 08:00 12/11/24 13:25 Ipratropium 0.5 Mg/Albuterol Sulfate 2.5 Mg Ampul.Neb 3 Ml INHALATION 3 ml Q6HRT MINGO Administration Dextrose 12.5 gm 12/10/24 03:00 Dextrose 50% 25 Gm/50 Ml Syringe IV PUSH PRN PRN Hypoglycemia Protocol Ferrous Sulfate 142 mg 12/10/24 08:00 12/11/24 08:24 Ferrous Sulfate Dried 142 Mg Tabcr PO 142 mg DAILY@0800 MINGO Administration Fluticasone Propionate 1 spray 12/10/24 09:00 12/11/24 11:33 Fluticasone Propionate 0.05% Na Spr 16 Gm Btl (*Bkc) NASAL Not Given BID MINGO Glucagon 1 mg 12/10/24 03:00 Glucagon For Inj 1 Mg Vial IM PRN PRN Hypoglycemia Protocol Glucose 15 gm 12/10/24 03:00 Glucose Oral Gel 15 Gm Of Glucse In 37.5 Gm Tube PO PRN PRN Hypoglycemia Protocol Guaifenesin 1,200 mg 12/10/24 09:00 12/11/24 08:24 Guaifenesin 12 Hr 600 Mg Tabcr PO 1,200 mg Q12HR [facility] Administration Dextrose 1,000 mls @ 100 mls/hr 12/10/24 03:00 Dextrose 5% 1,000 Ml IVPB PRN PRN Hypoglycemia Protocol Azithromycin 500 mg in 250 mls @ 250 mls/hr 12/10/24 19:00 12/10/24 17:51 Zithromax IVPB 250 mls/hr Q24H [facility] Administration Ceftriaxone Sodium 1 gm in 50 mls @ 100 mls/hr 12/10/24 11:55 12/11/24 08:26 Rocephin 1 Gm/Ns 50 Ml IVPB 100 mls/hr Q12HR [facility] Administration Insulin Aspart 2 - 5 units 12/10/24 08:00 12/11/24 12:24 Insulin Aspart (*Bkc) 100 Units/Ml SUB-Q Not Given TIDWM [facility] Protocol Insulin Aspart 1 - 2 units 12/10/24 21:00 12/10/24 21:09 Insulin Aspart (*Bkc) 100 Units/Ml SUB-Q Not Given HS [facility] Protocol Lisinopril 5 mg 12/10/24 14:05 12/11/24 08:25 Lisinopril 5 Mg Tablet PO 5 mg QAM [facility] Administration Metoprolol Tartrate 25 mg 12/10/24 14:05 12/11/24 08:25 Metoprolol Tartrate 25 Mg Tablet PO 25 mg Q12HR [facility]ING[facility] Administration Morphine Sulfate 2 mg 12/10/24 03:58 12/10/24 08:36 Morphine Sulfate (*Crx) 2 Mg/Ml Inj IV PUSH 2 mg Q4H PRN Administration Pain Rated 7-10 Ondansetron HCl 4 mg 12/09/24 18:53 12/11/24 13:58 Ondansetron Inj 4 Mg/2 Ml Vial IV PUSH 4 mg Q4H PRN Administration Nausea Oxycodone HCl 5 mg 12/10/24 10:48 12/11/24 08:46 Oxycodone Hcl (*Crx) 5 Mg Tab Ir PO 5 mg Q4H PRN Administration Pain Rated 7-10 Pantoprazole Sodium 40 mg 12/11/24 09:00 12/11/24 08:25 Pantoprazole 40 Mg Tablet PO 40 mg QAM [facility] Administration Radiology Results: ITS Impressions Chest X-Ray 12/09/24 16:39 IMPRESSION: Bilateral pneumonia. Underlying fibrotic/emphysematous Changes. Chest/Abdomen/Pelvis CT 12/09/24 17:27 IMPRESSION: Panlobular emphysematous disease. Findings within the right mid to lower lung field for which a pleural-based mass is suspected. Small right-sided pleural effusion is also noted. No acute pathology within the abdomen or pelvis. Abdomen Ultrasound 12/09/24 18:06 IMPRESSION: Limited evaluation of pancreas secondary to overlying bowel gas. No evidence of cholecystitis or cholelithiasis, consistent with recent CT examination, performed on the same day. Pulmonary Perfusion Imaging 12/10/24 15:37 IMPRESSION: 1. Intermediate probability for pulmonary embolism. 2. Small bilateral pleural effusions, right greater than left 3. Diffuse bilateral decreased washout of activity on the ventilation images consistent with obstructive pulmonary disease. Venous Doppler Study 12/11/24 08:13 IMPRESSION: Negative bilateral lower extremity venous US. No deep vein thrombosis. Labs Labs: Laboratory Results - last 24 hr 12/09/24 12/10/24 12/10/24 13:38 15:59 20:20 WBC RBC Hgb Hct MCV MCH MCHC RDW Plt Count MPV Sodium Potassium Chloride Carbon Dioxide Anion Gap BUN Creatinine Estim Creat Clear Calc Estimated GFR Glucose POC Capillary Glucose 152 H 141 H Calcium Crossmatch See Detail 12/10/24 12/11/24 12/11/24 22:23 04:02 07:44 WBC 9.0 RBC 3.87 L Hgb 9.6 L 9.5 L Hct 32.1 L 32.0 L MCV 82.7 MCH 24.5 L D MCHC 29.7 L RDW 17.7 H Plt Count 339 MPV 9.3 Sodium 139 Potassium 2.9 L Chloride 100 Carbon Dioxide 34 H Anion Gap 5 BUN 8 D Creatinine 0.49 L Estim Creat Clear Calc 77 Estimated GFR > 60 Glucose 227 H POC Capillary Glucose 107 H Calcium 9.3 Crossmatch 12/11/24 11:37 WBC RBC Hgb Hct MCV MCH MCHC RDW Plt Count MPV Sodium Potassium Chloride Carbon Dioxide Anion Gap BUN Creatinine Estim Creat Clear Calc Estimated GFR Glucose POC Capillary Glucose 151 H Calcium Crossmatch
[2024-12-11 16:34] LABS: Glucose Point of Care 117 mg/dl (65-105)
[2024-12-11] MEDS: AZITHROMYCIN 500 MG/NS 250 ML 500 MG/250 ML BAG 250 MG IVPB (18:36)
[2024-12-11 21:12] LABS: Glucose Point of Care 152 mg/dl (65-105)
[2024-12-12] VITALS (11 sets, daily range): BP systolic 139–155; BP diastolic 53–72; PULSE 68–103; RESP 13–20; TEMP 36.2–36.7; O2SAT 96–98
[2024-12-12] MEDS: oxyCODONE HCL (*CRX) 5 MG TAB IR PO ×3 (05:31→17:11)
[2024-12-12 07:53] LABS: Glucose Point of Care 124 mg/dl (65-105)
[2024-12-12 07:55] LABS: Basophils Absolute Auto 0.1 K/mm3 (0.0-0.1); Basophils Percent Auto 0.5 % (0.2-1.2); Eosinophils Absolute Auto 0.7 K/mm3 (0-0.3); Eosinophils Percent Auto 7.1 % (0-4.4); Hematocrit 33.8 % (37.0-47.0); Hemoglobin 9.9 g/dL (12.0-15.0); Immature Granulocyte Absolute 0.04 K/mm3 (0.00-0.031); Immature Granulocyte Percent A 0.4 % (0-0.5); Lymphocytes Absolute Auto 0.68 K/mm3 (0.9-3.2); Lymphocytes Percent Auto 7.4 % (18.3-44.2); Mean Corpuscular HGB Conc 29.3 g/dl (32-36); Mean Corpuscular Hemoglobin 24.6 pg (26-34); Mean Corpuscular Volume 84.1 fl (80-100); Mean Platelet Volume 8.7 fl (7.4-10.4); Monocytes Absolute Auto 0.8 K/mm3 (0.1-0.6); Monocytes Percent Auto 8.7 % (2.6-8.5); Neutrophils Absolute Auto 6.9 K/mm3 (1.3-6.7); Neutrophils Percent Auto 75.9 % (45.5-73.1); Platelet Count Result 389 k/mm3 (150-375); Red Blood Count 4.02 M/mm3 (4.2-5.4); Red Cell Distribution Width 18.1 % (11.5-14.5); White Blood Count 9.2 K/mm3 (4.5-10.0)
[2024-12-12 08:12] LABS: Alanine Aminotransferase 27 U/L (6-35); Albumin Level 3.1 g/dL (3.5-5.1); Alkaline Phosphatase 132 U/L (38-126); Anion Gap 1 mmol/L (4-12); Aspartate Amino Transferase 41 U/L (14-36); Bilirubin,Total 0.3 mg/dL (0.2-1.3); Blood Urea Nitrogen 4 mg/dL (7-17); Calcium 9.7 mg/dL (8.4-10.2); Carbon Dioxide 35 mmol/L (22-30); Chloride 103 mmol/L (98-107); Estimated CRCL calculation 92 ml/min; Estimated Glomerular Filt Rate > 60; Glucose 137 mg/dL (65-110); Potassium 3.9 mmol/L (3.4-5.0); Sodium 139 mmol/L (137-145)
[2024-12-12 08:20] LABS: Anisocytosis 1+; Hypochromasia 1+; Microcytosis 1+ (NORMAL); Platelet Estimate Adequate (Adequate); Schistocytes None Seen
[2024-12-12] MEDS: PANTOPRAZOLE 40 MG TABLET PO (09:14)
[2024-12-12] MEDS: lisinopriL 5 MG TABLET PO (09:14)
[2024-12-12] MEDS: METOPROLOL TARTRATE 25 MG TABLET PO ×2 (09:15→20:35)
[2024-12-12] MEDS: FERROUS SULFATE DRIED 142 MG TABCR PO (09:15)
[2024-12-12] MEDS: guaiFENesin 12 HR 600 MG TABCR 1200 MG PO ×2 (09:15→20:34)
[2024-12-12] MEDS: IPRATROPIUM 0.5 MG/ALBUTEROL SULFATE 2.5 MG AMPUL.NEB 3 ML INHALATION ×3 (09:51→20:17)
--- NOTE | 2024-12-12 09:54 | PM.PNPUL ---
Progress Note: A&P Assessment and Plan (1) Emphysema lung: Code(s): J43.9 - Emphysema, unspecified Status: Acute (2) Pneumonia: Qualifiers: Laterality: bilateral Lung location: unspecified part of lung Pneumonia type: due to unspecified organism Qualified Code(s): J18.9 - Pneumonia, unspecified organism Code(s): J18.9 - Pneumonia, unspecified organism Status: Acute Assessment and Plan: This 69-year-old female with a history of COPD and chronic hypoxemic respiratory failure on supplemental oxygen presented with right pleuritic chest pain, leukocytosis, and new lung infiltrates/consolidation in the right subpleural area. Her presentation, along with diagnostic studies, suggests community-acquired pneumonia, most likely pneumococcal, given her positive response to antibiotics and declining white blood cell count. The patient continues to experience right pleuritic chest pain, necessitating the use of opiates for improved pain management. Patient underwent lower extremity study that showed no evidence of a DVT. She also had V/Q scan that was read as of intermediate possibility for pulmonary embolism. It appears as though the patient's most likely diagnosis is community-acquired pneumonia which with antibiotics seems to respond. WBC is back into the normal range although the patient continues to have a right pleuritic chest pain related to peripheral location of pneumonia. Plan: Continue with current antibiotic regimen repeat chest x-ray in a.m. patient should be started on DVT prophylaxis, mechanical or pharmaceutical. Will continue to follow the patient with you. (3) Chronic obstructive pulmonary disease: Code(s): J44.9 - Chronic obstructive pulmonary disease, unspecified Status: Acute (4) Chronic respiratory failure with hypoxia, on home oxygen therapy: Code(s): J96.11 - Chronic respiratory failure with hypoxia; Z99.81 - Dependence on supplemental oxygen Status: Acute Subjective Date/time seen: 12/12/24 09:54 Interval history: Patient stated she is doing better in the sense that right pleuritic chest pain is less. She continues to have chest congestion with cough. Sputum has turned light yellow now. Review of Systems Review of Systems: All systems reviewed & are unremarkable except as noted in HPI and below (HPI and below) Exam Narrative: GENERAL APPEARANCE: Well developed, well nourished, alert and cooperative, and appears to be in no acute distress SKIN: Inspection of the skin reveals no rashes, ulcerations or petechiae. HEENT: Sclerae anicteric and conjunctivae pink and moist. Extraocular movements were intact and pupils were equal, round, and reactive to light. The oral mucosa, hard and soft palate, tongue and posterior pharynx were normal. NECK: Supple. There was no thyroid enlargement, and no tenderness, or masses were felt. CHEST: Normal AP diameter and normal contour without any kyphoscoliosis. LUNGS: Distant breath sounds few crackles right lung base posteriorly no wheezing CARDIAC: There was a regular rate and rhythm without any murmurs, gallops, rubs. ABDOMEN: Soft and nontender with normal bowel sounds. There was no organomegaly. LYMPH NODES: No lymphadenopathy was appreciated in the neck. EXTREMITIES: No cyanosis, clubbing or edema. NEUROLOGIC: Alert and oriented x 3. Normal affect. Objective Data Vital Signs Vital Signs: Vital Signs - 24 hr 12/11/24 10:00 12/11/24 13:25 12/11/24 13:35 Temperature Pulse Rate 85 81 102 H Respiratory Rate 20 20 Blood Pressure Pulse Oximetry Oxygen Delivery Oxygen Flow Rate 12/11/24 14:44 12/11/24 21:05 12/11/24 21:07 Temperature 37.0 C 36.6 C Pulse Rate 75 101 H 99 Respiratory Rate 18 20 18 Blood Pressure 139/78 148/61 H Pulse Oximetry 95 92 Oxygen Delivery Oxygen Flow Rate 12/11/24 21:15 12/11/24 21:50 12/12/24 04:41 Temperature 36.4 C Pulse Rate 105 H 95 95 Respiratory Rate 20 18 Blood Pressure 151/59 H Pulse Oximetry 96 Oxygen Delivery Oxygen Flow Rate 12/12/24 09:10 12/12/24 09:15 Temperature Pulse Rate 68 Respiratory Rate Blood Pressure Pulse Oximetry Oxygen Delivery Nasal Cannula Oxygen Flow Rate 3 Intake/Output Intake/Output: Intake & Output 12/09/24 12/10/24 12/11/24 12/12/24 23:59 23:59 23:59 23:59 Intake Total 3900 1390 1340 550 Output Total 1600 700 Balance 3900 -210 640 550 Meds/Results Medications: Active Medications Generic Name Dose Route Start Last Admin Trade Name Freq PRN Reason Stop Dose Admin Acetaminophen 650 mg 12/09/24 18:53 12/10/24 01:00 Acetaminophen 325 Mg Tablet PO 650 mg Q4H PRN Administration Mild Pain (1-3) or Fever Albuterol/Ipratropium 3 ml 12/10/24 08:00 12/12/24 09:51 Ipratropium 0.5 Mg/Albuterol Sulfate 2.5 Mg Ampul.Neb 3 Ml INHALATION 3 ml Q6HRT MINGO Administration Dextrose 12.5 gm 12/10/24 03:00 Dextrose 50% 25 Gm/50 Ml Syringe IV PUSH PRN PRN Hypoglycemia Protocol Ferrous Sulfate 142 mg 12/10/24 08:00 12/12/24 09:15 Ferrous Sulfate Dried 142 Mg Tabcr PO 142 mg DAILY@0800 MINGO Administration Fluticasone Propionate 1 spray 12/10/24 09:00 12/12/24 09:15 Fluticasone Propionate 0.05% Na Spr 16 Gm Btl (*Bkc) NASAL Not Given BID MINGO Glucagon 1 mg 12/10/24 03:00 Glucagon For Inj 1 Mg Vial IM PRN PRN Hypoglycemia Protocol Glucose 15 gm 12/10/24 03:00 Glucose Oral Gel 15 Gm Of Glucse In 37.5 Gm Tube PO PRN PRN Hypoglycemia Protocol Guaifenesin 1,200 mg 12/10/24 09:00 12/12/24 09:15 Guaifenesin 12 Hr 600 Mg Tabcr PO 1,200 mg Q12HR MINGO Administration Dextrose 1,000 mls @ 100 mls/hr 12/10/24 03:00 Dextrose 5% 1,000 Ml IVPB PRN PRN Hypoglycemia Protocol Azithromycin 500 mg in 250 mls @ 250 mls/hr 12/10/24 19:00 12/11/24 18:36 Zithromax IVPB 250 mls/hr Q24H MINGO Administration Ceftriaxone Sodium 1 gm in 50 mls @ 100 mls/hr 12/10/24 11:55 12/12/24 09:17 Rocephin 1 Gm/Ns 50 Ml IVPB 100 mls/hr Q12HR MINGO Administration Insulin Aspart 2 - 5 units 12/10/24 08:00 12/11/24 19:08 Insulin Aspart (*Bkc) 100 Units/Ml SUB-Q Not Given TIDWM [facility] Protocol Insulin Aspart 1 - 2 units 12/10/24 21:00 12/11/24 22:29 Insulin Aspart (*Bkc) 100 Units/Ml SUB-Q Not Given HS M[facility]O Protocol Lisinopril 5 mg 12/10/24 14:05 12/12/24 09:14 Lisinopril 5 Mg Tablet PO 5 mg QAM MINGO Administration Metoprolol Tartrate 25 mg 12/10/24 14:05 12/12/24 09:15 Metoprolol Tartrate 25 Mg Tablet PO 25 mg Q12HR MINGO Administration Morphine Sulfate 2 mg 12/10/24 03:58 12/10/24 08:36 Morphine Sulfate (*Crx) 2 Mg/Ml Inj IV PUSH 2 mg Q4H PRN Administration Pain Rated 7-10 Ondansetron HCl 4 mg 12/09/24 18:53 12/11/24 19:06 Ondansetron Inj 4 Mg/2 Ml Vial IV PUSH 4 mg Q4H PRN Administration Nausea Oxycodone HCl 5 mg 12/10/24 10:48 12/12/24 05:31 Oxycodone Hcl (*Crx) 5 Mg Tab Ir PO 5 mg Q4H PRN Administration Pain Rated 7-10 Pantoprazole Sodium 40 mg 12/11/24 09:00 12/12/24 09:14 Pantoprazole 40 Mg Tablet PO 40 mg QAM MINGO Administration Radiology Results: ITS Impressions Chest X-Ray 12/09/24 16:39 IMPRESSION: Bilateral pneumonia. Underlying fibrotic/emphysematous Changes. Chest/Abdomen/Pelvis CT 12/09/24 17:27 IMPRESSION: Panlobular emphysematous disease. Findings within the right mid to lower lung field for which a pleural-based mass is suspected. Small right-sided pleural effusion is also noted. No acute pathology within the abdomen or pelvis. Abdomen Ultrasound 12/09/24 18:06 IMPRESSION: Limited evaluation of pancreas secondary to overlying bowel gas. No evidence of cholecystitis or cholelithiasis, consistent with recent CT examination, performed on the same day. Pulmonary Perfusion Imaging 12/10/24 15:37 IMPRESSION: 1. Intermediate probability for pulmonary embolism. 2. Small bilateral pleural effusions, right greater than left 3. Diffuse bilateral decreased washout of activity on the ventilation images consistent with obstructive pulmonary disease. Venous Doppler Study 12/11/24 08:13 IMPRESSION: Negative bilateral lower extremity venous US. No deep vein thrombosis. Labs Labs: Laboratory Results - last 24 hr 12/11/24 12/11/24 12/11/24 11:37 16:28 21:09 WBC RBC Hgb Hct MCV MCH MCHC RDW Plt Count MPV Immature Gran % (Auto) Neut % (Auto) Lymph % (Auto) Graves % (Auto) Eos % (Auto) Baso % (Auto) Lymph # (Auto) Graves # (Auto) Eos # (Auto) Baso # (Auto) Abs Immat Gran (auto) Absolute Neuts (auto) Absolute Nucleated RBC Band Neutrophils % Nucleated RBC % Platelet Estimate Hypochromasia Anisocytosis Microcytosis Schistocytes Sodium Potassium Chloride Carbon Dioxide Anion Gap BUN Creatinine Estim Creat Clear Calc Estimated GFR Glucose POC Capillary Glucose 151 H 117 H 152 H Calcium Total Bilirubin AST ALT Alkaline Phosphatase Total Protein Albumin 12/12/24 12/12/24 12/12/24 07:45 07:46 07:47 WBC 9.2 RBC 4.02 L Hgb 9.9 L Hct 33.8 L MCV 84.1 MCH 24.6 L MCHC 29.3 L RDW 18.1 H Plt Count 389 H MPV 8.7 Immature Gran % (Auto) 0.4 Neut % (Auto) 75.9 H Lymph % (Auto) 7.4 L Graves % (Auto) 8.7 H Eos % (Auto) 7.1 H Baso % (Auto) 0.5 Lymph # (Auto) 0.68 L Graves # (Auto) 0.8 H Eos # (Auto) 0.7 H Baso # (Auto) 0.1 Abs Immat Gran (auto) 0.04 H Absolute Neuts (auto) 6.9 H Absolute Nucleated RBC 0.000 Band Neutrophils % Not Reportable Nucleated RBC % 0.0 Platelet Estimate Adequate Hypochromasia 1+ Anisocytosis 1+ Microcytosis 1+ Schistocytes None seen Sodium 139 Potassium 3.9 Chloride 103 Carbon Dioxide 35 H Anion Gap 1 L BUN 4 L Creatinine 0.40 L Estim Creat Clear Calc 92 Estimated GFR > 60 Glucose 137 H POC Capillary Glucose 124 H Calcium 9.7 Total Bilirubin 0.3 AST 41 H ALT 27 Alkaline Phosphatase 132 H Total Protein 6.0 L Albumin 3.1 L
--- NOTE | 2024-12-12 11:20 | P.PNIM_ITS ---
Progress Note: A&P Assessment and Plan (1) Fecal occult blood test positive: Code(s): R19.5 - Other fecal abnormalities Status: Acute Assessment and Plan: * EGD negative for any acute findings other than gastritis. * GI will follow as outpt. * Hold pharmacological anticoagulation in this setting for now and provide SCD's. * Pt to have outpt colonoscopy once she has recovered from her PNA. (2) Sepsis: Qualifiers: Sepsis type: sepsis due to unspecified organism Sepsis acute organ dysfunction status: unspecified Qualified Code(s): A41.9 - Sepsis, unspecified organism Code(s): A41.9 - Sepsis, unspecified organism Status: Resolved Assessment and Plan: * No longer meeting sepsis criteria. (3) Pneumonia: Qualifiers: Laterality: bilateral Lung location: unspecified part of lung P neumonia type: due to unspecified organism Qualified Code(s): J18.9 - Pneumonia, unspecified organism Code(s): J18.9 - Pneumonia, unspecified organism Status: Acute Assessment and Plan: * Continue rocephin, Azithromycin * Continue to collaborate with Pulmonology. * Continue supplemental oxygen as needed. * Continue Duoneb * Trend and monitor labs and VS. * Received fluid resuscitation * Blood and sputum cultures pending * Chest CT showed emphysema disease with concerns for a pleural based mass * V/Q scan: Intermediate probability for pulmonary embolism. Venous Doppler shows no DVT of lower extremities * Awaiting results of Legionella, Mycoplasma and Pneumococcal antigens. (4) Acute kidney injury: Code(s): N17.9 - Acute kidney failure, unspecified Status: Resolved Assessment and Plan: * Now resolved. (5) Mass of right lung: Code(s): R91.8 - Other nonspecific abnormal finding of lung field Status: Acute Assessment and Plan: * Management and development of plan per Pulmonology. * Pt's overall disease process is thought to be due to PNA and not underlying mass. * Continue treatment as per Pulm. noted above. (6) Hyperglycemia: Code(s): R73.9 - Hyperglycemia, unspecified Status: Acute Assessment and Plan: * Continue SSI * Continue Hypoglycemic protocol * Continue glucose checks * Change diet to Diabetic diet. * A1C is 4.9. (7) Chronic obstructive pulmonary disease: Code(s): J44.9 - Chronic obstructive pulmonary disease, unspecified Status: Chronic Assessment and Plan: * Appreciate continued management per Pulmonology. * Continue above mentioned measures including monitoring, oxygen, nebs (8) Chronic respiratory failure with hypoxia, on home oxygen therapy: Code(s): J96.11 - Chronic respiratory failure with hypoxia; Z99.81 - Dependence on supp lemental oxygen Status: Chronic Assessment and Plan: * See #7 (9) Anemia: Qualifiers: Anemia type: iron deficiency Iron deficiency anemia type: chronic blood loss Qualified Code(s): D50.0 - Iron deficiency anemia secondary to blood loss (chronic) Code(s): D64.9 - Anemia, unspecified Status: Acute Assessment and Plan: * Stable today without any decrease. * Three days of flat Hgb. * Continue to monitor and trend. (10) Hypertension: Code(s): I10 - Essential (primary) hypertension Status: Acute Assessment and Plan: * Continue Lisinopril and Metoprolol * Continue to trend and adjust as needed. Time Spent With Patient Time with patient: 25 - 35 minutes Subjective Date/time seen: 12/12/24 11:20 Interval history: This very pleasant pt was examined this AM as she was working with therapy and had just transitioned from the bed to the chair. She appears dyspneic overall and states she feels dyspneic as well. She has no complaints of pain and she has no other acute complaints at this time. She is being managed by Dr. Penn and he advises to continue the current treatment plan and to recheck a CXR in the AM. Review of Systems Review of Systems: All systems reviewed & are unremarkable except as noted in HPI and below Exam Narrative: GENERAL: Pleasant, in no acute distress. Well-nourished. - EYES: EOMI. Anicteric. - HENT: Moist mucous membranes. - LUNGS: Clear to auscultation bilater ally, no wheezing, rhonchi, or rales. - CARDIOVASCULAR: Regular rate and rhyth m. No murmur. No JVD. - ABDOMEN: Soft, non-tender and non-dist ended. No palpable masses. - EXTREMITIES: No edema. Peripheral puls es 2+. Non-tender. - NEUROLOGIC: No focal neurological defi cits. CN II-XII grossly intact. - PSYCHIATRIC: Awake, Alert and oriented x 3. Appropriate mood and affect. - SKIN: No rashes or lesions. Warm. - LYMPH: No cervical lymphadenopathy. Objective Data Vital Signs Vital Signs: Vital Signs - 24 hr 12/11/24 13:25 12/11/24 13:35 12/11/24 14:44 Temperature 98.6 F Pulse Rate 81 102 H 75 Respiratory Rate 20 20 18 Blood Pressure 139/78 Pulse Oximetry 95 Oxygen Delivery Oxygen Flow Rate 12/11/24 21:05 12/11/24 21:07 12/11/24 21:15 Temperature 97.8 F Pulse Rate 101 H 99 105 H Respiratory Rate 20 18 20 Blood Pressure 148/61 H Pulse Oximetry 92 Oxygen Delivery Oxygen Flow Rate 12/11/24 21:50 12/12/24 04:41 12/12/24 09:10 Temperature 97.6 F Pulse Rate 95 95 Respiratory Rate 18 Blood Pressure 151/59 H Pulse Oximetry 96 Oxygen Delivery Nasal Cannula Oxygen Flow Rate 3 12/12/24 09:15 12/12/24 09:53 12/12/24 09:53 Temperature Pulse Rate 68 103 H Respiratory Rate 20 Blood Pressure Pulse Oximetry 98 Oxygen Delivery Nasal Cannula Oxygen Flow Rate 3 12/12/24 10:04 12/12/24 10:47 Temperature Pulse Rate 101 H Respiratory Rate 20 Blood Pressure Pulse Oximetry Oxygen Delivery Nasal Cannula Oxygen Flow Rate 3 Intake/Output Intake/Output: Intake & Output 12/09/24 12/10/24 12/11/24 12/12/24 23:59 23:59 23:59 23:59 Intake Total 3900 1390 1340 790 Output Total 1600 700 Balance 3900 -210 640 790 Meds/Results Medications: Active Medications Generic Name Dose Route Start Last Admin Trade Name Freq PRN Reason Stop Dose Admin Acetaminophen 650 mg 12/09/24 18:53 12/10/24 01:00 Acetaminophen 325 Mg Tablet PO 650 mg Q4H PRN Administration Mild Pain (1-3) or Fever Albuterol/Ipratropium 3 ml 12/10/24 08:00 12/12/24 09:51 Ipratropium 0.5 Mg/Albuterol Sulfate 2.5 Mg Ampul.Neb 3 Ml INHALATION 3 ml Q6HRT MINGO Administration Dextrose 12.5 gm 12/10/24 03:00 Dextrose 50% 25 Gm/50 Ml Syringe IV PUSH PRN PRN Hypoglycemia Protocol Ferrous Sulfate 142 mg 12/10/24 08:00 12/12/24 09:15 Ferrous Sulfate Dried 142 Mg Tabcr PO 142 mg DAILY@0800 MINGO Administration Fluticasone Propionate 1 spray 12/10/24 09:00 12/12/24 09:15 Fluticasone Propionate 0.05% Na Spr 16 Gm Btl (*Bkc) NASAL Not Given BID MINGO Glucagon 1 mg 12/10/24 03:00 Glucagon For Inj 1 Mg Vial IM PRN PRN Hypoglycemia Protocol Glucose 15 gm 12/10/24 03:00 Glucose Oral Gel 15 Gm Of Glucse In 37.5 Gm Tube PO PRN PRN Hypoglycemia Protocol Guaifenesin 1,200 mg 12/10/24 09:00 12/12/24 09:15 Guaifenesin 12 Hr 600 Mg Tabcr PO 1,200 mg Q12HR MINGO Administration Dextrose 1,000 mls @ 100 mls/hr 12/10/24 03:00 Dextrose 5% 1,000 Ml IVPB PRN PRN Hypoglycemia Protocol Azithromycin 500 mg in 250 mls @ 250 mls/hr 12/10/24 19:00 12/11/24 18:36 Zithromax IVPB 250 mls/hr Q24H MINGO Administration Ceftriaxone Sodium 1 gm in 50 mls @ 100 mls/hr 12/10/24 11:55 12/12/24 09:17 Rocephin 1 Gm/Ns 50 Ml IVPB 100 mls/hr Q12HR MINGO Administration Insulin Aspart 2 - 5 units 12/10/24 08:00 12/12/24 10:28 Insulin Aspart (*Bkc) 100 Units/Ml SUB-Q Not Given TIDWM [facility] Protocol Insulin Aspart 1 - 2 units 12/10/24 21:00 12/11/24 22:29 Insulin Aspart (*Bkc) 100 Units/Ml SUB-Q Not Given HS [facility] Protocol Lisinopril 5 mg 12/10/24 14:05 12/12/24 09:14 Lisinopril 5 Mg Tablet PO 5 mg QAM MINGO Administration Metoprolol Tartrate 25 mg 12/10/24 14:05 12/12/24 09:15 Metoprolol Tartrate 25 Mg Tablet PO 25 mg Q12HR MINGO Administration Morphine Sulfate 2 mg 12/10/24 03:58 12/10/24 08:36 Morphine Sulfate (*Crx) 2 Mg/Ml Inj IV PUSH 2 mg Q4H PRN Administration Pain Rated 7-10 Ondansetron HCl 4 mg 12/09/24 18:53 12/11/24 19:06 Ondansetron Inj 4 Mg/2 Ml Vial IV PUSH 4 mg Q4H PRN Administration Nausea Oxycodone HCl 5 mg 12/10/24 10:48 12/12/24 05:31 Oxycodone Hcl (*Crx) 5 Mg Tab Ir PO 5 mg Q4H PRN Administration Pain Rated 7-10 Pantoprazole Sodium 40 mg 12/11/24 09:00 12/12/24 09:14 Pantoprazole 40 Mg Tablet PO 40 mg QAM MINGO Administration Radiology Results: ITS Impressions Chest X-Ray 12/09/24 16:39 IMPRESSION: Bilateral pneumonia. Underlying fibrotic/emphysematous Changes. Chest/Abdomen/Pelvis CT 12/09/24 17:27 IMPRESSION: Panlobular emphysematous disease. Findings within the right mid to lower lung field for which a pleural-based mass is suspected. Small right-sided pleural effusion is also noted. No acute pathology within the abdomen or pelvis. Abdomen Ultrasound 12/09/24 18:06 IMPRESSION: Limited evaluation of pancreas secondary to overlying bowel gas. No evidence of cholecystitis or cholelithiasis, consistent with recent CT examination, performed on the same day. Pulmonary Perfusion Imaging 12/10/24 15:37 IMPRESSION: 1. Intermediate probability for pulmonary embolism. 2. Small bilateral pleural effusions, right greater than left 3. Diffuse bilateral decreased washout of activity on the ventilation images consistent with obstructive pulmonary disease. Venous Doppler Study 12/11/24 08:13 IMPRESSION: Negative bilateral lower extremity venous US. No deep vein thrombosis. Labs Labs: Laboratory Results - last 24 hr 12/11/24 12/11/24 12/11/24 11:37 16:28 21:09 WBC RBC Hgb Hct MCV MCH MCHC RDW Plt Count MPV Immature Gran % (Auto) Neut % (Auto) Lymph % (Auto) Bailey % (Auto) Eos % (Auto) Baso % (Auto) Lymph # (Auto) Bailey # (Auto) Eos # (Auto) Baso # (Auto) Abs Immat Gran (auto) Absolute Neuts (auto) Absolute Nucleated RBC Band Neutrophils % Nucleated RBC % Platelet Estimate Hypochromasia Anisocytosis Microcytosis Schistocytes Sodium Potassium Chloride Carbon Dioxide Anion Gap BUN Creatinine Estim Creat Clear Calc Estimated GFR Glucose POC Capillary Glucose 151 H 117 H 152 H Calcium Total Bilirubin AST ALT Alkaline Phosphatase Total Protein Albumin 12/12/24 12/12/24 12/12/24 07:45 07:46 07:47 WBC 9.2 RBC 4.02 L Hgb 9.9 L Hct 33.8 L MCV 84.1 MCH 24.6 L MCHC 29.3 L RDW 18.1 H Plt Count 389 H MPV 8.7 Immature Gran % (Auto) 0.4 Neut % (Auto) 75.9 H Lymph % (Auto) 7.4 L Bailey % (Auto) 8.7 H Eos % (Auto) 7.1 H Baso % (Auto) 0.5 Lymph # (Auto) 0.68 L Bailey # (Auto) 0.8 H Eos # (Auto) 0.7 H Baso # (Auto) 0.1 Abs Immat Gran (auto) 0.04 H Absolute Neuts (auto) 6.9 H Absolute Nucleated RBC 0.000 Band Neutrophils % Not Reportable Nucleated RBC % 0.0 Platelet Estimate Adequate Hypochromasia 1+ Anisocytosis 1+ Microcytosis 1+ Schistocytes None seen Sodium 139 Potassium 3.9 Chloride 103 Carbon Dioxide 35 H Anion Gap 1 L BUN 4 L Creatinine 0.40 L Estim Creat Clear Calc 92 Estimated GFR > 60 Glucose 137 H POC Capillary Glucose 124 H Calcium 9.7 Total Bilirubin 0.3 AST 41 H ALT 27 Alkaline Phosphatase 132 H Total Protein 6.0 L Albumin 3.1 L Quality VTE Prophylaxis VTE prophylaxis: mechanical ordered
[2024-12-12 12:08] LABS: Glucose Point of Care 122 mg/dl (65-105)
[2024-12-12 13:37] LABS: Pneumococcal Antigen Urine NOT DETECTED
[2024-12-12 16:41] LABS: Glucose Point of Care 123 mg/dl (65-105)
[2024-12-12] MEDS: AZITHROMYCIN 500 MG/NS 250 ML 500 MG/250 ML BAG 250 MG IVPB (17:10)
[2024-12-12 17:14] LABS: Mycoplasma IgM Antibody Titer 122 U/mL
[2024-12-12 21:10] LABS: Glucose Point of Care 152 mg/dl (65-105)
[2024-12-12 22:13] LABS: Legionella pneumophila Ag Ur NOT DETECTED
[2024-12-12] MEDS: ACETAMINOPHEN 325 MG TABLET 650 MG PO (22:15)
[2024-12-13] VITALS (15 sets, daily range): BP systolic 133–210; BP diastolic 57–105; PULSE 61–108; RESP 13–20; TEMP 36.2–36.6; O2SAT 96–100
[2024-12-13] MEDS: oxyCODONE HCL (*CRX) 5 MG TAB IR PO ×5 (00:10→21:04)
[2024-12-13] MEDS: IPRATROPIUM 0.5 MG/ALBUTEROL SULFATE 2.5 MG AMPUL.NEB 3 ML INHALATION ×4 (02:18→19:38)
[2024-12-13] MEDS: PANTOPRAZOLE 40 MG TABLET PO (06:18)
[2024-12-13] MEDS: METOPROLOL TARTRATE 25 MG TABLET PO ×2 (06:18→21:03)
[2024-12-13 07:03] LABS: Basophils Percent Auto 0.6 % (0.2-1.2); Eosinophils Absolute Auto 0.5 K/mm3 (0-0.3); Eosinophils Percent Auto 7.4 % (0-4.4); Hematocrit 33.9 % (37.0-47.0); Hemoglobin 9.5 g/dL (12.0-15.0); Immature Granulocyte Absolute 0.03 K/mm3 (0.00-0.031); Immature Granulocyte Percent A 0.4 % (0-0.5); Lymphocytes Absolute Auto 0.75 K/mm3 (0.9-3.2); Lymphocytes Percent Auto 10.9 % (18.3-44.2); Mean Corpuscular Hemoglobin 24.1 pg (26-34); Mean Corpuscular Volume 85.8 fl (80-100); Mean Platelet Volume 8.8 fl (7.4-10.4); Monocytes Absolute Auto 0.7 K/mm3 (0.1-0.6); Monocytes Percent Auto 9.8 % (2.6-8.5); Neutrophils Absolute Auto 4.9 K/mm3 (1.3-6.7); Neutrophils Percent Auto 70.9 % (45.5-73.1); Platelet Count Result 362 k/mm3 (150-375); Red Blood Count 3.95 M/mm3 (4.2-5.4); Red Cell Distribution Width 18.1 % (11.5-14.5); White Blood Count 6.9 K/mm3 (4.5-10.0)
[2024-12-13 07:12] LABS: Magnesium 1.6 mg/dL (1.6-2.3)
[2024-12-13 07:14] LABS: Alanine Aminotransferase 22 U/L (6-35); Albumin Level 2.9 g/dL (3.5-5.1); Alkaline Phosphatase 112 U/L (38-126); Anion Gap 2 mmol/L (4-12); Aspartate Amino Transferase 28 U/L (14-36); Bilirubin,Total 0.2 mg/dL (0.2-1.3); Blood Urea Nitrogen 5 mg/dL (7-17); Calcium 9.2 mg/dL (8.4-10.2); Carbon Dioxide 37 mmol/L (22-30); Chloride 100 mmol/L (98-107); Estimated CRCL calculation 94 ml/min; Estimated Glomerular Filt Rate > 60; Glucose 126 mg/dL (65-110); Sodium 139 mmol/L (137-145)
[2024-12-13 08:17] LABS: Glucose Point of Care 119 mg/dl (65-105)
[2024-12-13 08:32] LABS: Anisocytosis 1+; Hypochromasia 1+; Ovalocytes 1+; Platelet Estimate Adequate (Adequate); Schistocytes None Seen
[2024-12-13] MEDS: FERROUS SULFATE DRIED 142 MG TABCR PO (08:41)
[2024-12-13] MEDS: lisinopriL 5 MG TABLET PO (08:41)
[2024-12-13] MEDS: guaiFENesin 12 HR 600 MG TABCR 1200 MG PO ×2 (08:41→21:03)
[2024-12-13] MEDS: POTASSIUM CHLORIDE 20 MEQ ER TABLET 40 MEQ PO (08:42)
--- NOTE | 2024-12-13 10:38 | P.PNPL_ITS ---
Progress Note: A&P Assessment and Plan (1) Emphysema lung: Code(s): J43.9 - Emphysema, unspecified Status: Acute (2) Pneumonia: Qualifiers: Laterality: bilateral Lung location: unspecified part of lung Pneumonia type: due to unspecified organism Qualified Code(s): J18.9 - Pneumonia, unspecified organism Code(s): J18.9 - Pneumonia, unspecified organism Status: Acute Assessment and Plan: This 69-year-old female with a history of COPD and chronic hypoxemic respiratory failure on supplemental oxygen presented with right pleuritic chest pain, leukocytosis, and new lung infiltrates/consolidation in the right subpleural area. Her presentation, along with diagnostic studies, suggests community- acquired pneumonia, given her positive response to antibiotics and declining white blood cell count. The patient continues to experience right pleuritic chest pain, necessitating the use of opiates for improved pain management. WBC is back into the normal range although the patient continues to have a right pleuritic chest pain related to peripheral location of pneumonia. New chest x- ray showed in addition to previous infiltrate new pleural effusion on right likely loculated. Urine antigen negative for community-acquired pneumonia. Plan: Switch patient to oral Zithromax continue with cefepime. Need to exclude empyema given the chest x-ray findings. Will proceed with a CT PA to assess size of pleural effusion possible loculation and also exclude underlying pulmonary embolism given the recent intermediate V/Q scan. Case was discussed with the hospitalist. (3) Chronic obstructive pulmonary disease: Code(s): J44.9 - Chronic obstructive pulmonary disease, unspecified Status: Chronic (4) Chronic respiratory failure with hypoxia, on home oxygen therapy: Code(s): J96.11 - Chronic respiratory failure with hypoxia; Z99.81 - Dependence on supplemental oxygen Status: Chronic Subjective Date/time seen: 12/13/24 10:38 Interval history: Still complaining of right pleuritic chest pain although less than before. Also chest congestion with light sputum production. WBC back into the normal range while on 2 antibiotics ceftriaxone and Zithromax. Chest x-ray showed no change infiltrate but a new pleural effusion on right probably loculated. Exam Narrative: GENERAL APPEARANCE: Well developed, well nourished, alert and cooperative, and appears to be in no acute distress SKIN: Inspection of the skin reveals no rashes, ulcerations or petechiae. HEENT: Sclerae anicteric and conjunctivae pink and moist. Extraocular movements were intact and pupils were equal, round, and reactive to light. The oral mucosa, hard and soft palate, tongue and posterior pharynx were normal. NECK: Supple. There was no thyroid enlargement, and no tenderness, or masses were felt. CHEST: Normal AP diameter and normal contour without any kyphoscoliosis. LUNGS: Distant breath sounds few crackles right lung base posteriorly no wheezing CARDIAC: There was a regular rate and rhythm without any murmurs, gallops, rubs. ABDOMEN: Soft and nontender with normal bowel sounds. There was no organomegaly. LYMPH NODES: No lymphadenopathy was appreciated in the neck. EXTREMITIES: No cyanosis, clubbing or edema. NEUROLOGIC: Alert and oriented x 3. Normal affect. Objective Data Vital Signs Vital Signs: Vital Signs - 24 hr 12/12/24 10:47 12/12/24 14:07 12/12/24 14:43 Temperature 36.7 C Pulse Rate 83 80 Respiratory Rate 20 18 Blood Pressure 139/53 L Pulse Oximetry 96 Oxygen Delivery Nasal Cannula Oxygen Flow Rate 3 12/12/24 20:00 12/12/24 20:17 12/12/24 20:17 Temperature Pulse Rate 93 97 97 Respiratory Rate 13 18 Blood Pressure Pulse Oximetry 97 96 Oxygen Delivery Nasal Cannula Nasal Cannula Oxygen Flow Rate 3 3 12/12/24 20:27 12/12/24 20:35 12/12/24 21:24 Temperature 36.2 C L Pulse Rate 97 97 93 Respiratory Rate 18 13 Blood Pressure 155/72 H Pulse Oximetry 97 Oxygen Delivery Oxygen Flow Rate 12/13/24 02:18 12/13/24 02:28 12/13/24 05:13 Temperature 36.2 C L Pulse Rate 97 97 76 Respiratory Rate 18 18 13 Blood Pressure 133/57 L Pulse Oximetry 100 Oxygen Delivery Oxygen Flow Rate 12/13/24 06:18 12/13/24 07:59 12/13/24 07:59 Temperature Pulse Rate 76 61 Respiratory Rate 20 Blood Pressure Pulse Oximetry 96 Oxygen Delivery Nasal Cannula Oxygen Flow Rate 3 12/13/24 08:11 Temperature Pulse Rate 62 Respiratory Rate 20 Blood Pressure Pulse Oximetry Oxygen Delivery Oxygen Flow Rate Intake/Output Intake/Output: Intake & Output 12/10/24 12/11/24 12/12/24 12/13/24 23:59 23:59 23:59 23:59 Intake Total 1390 1590 1525 170 Output Total 1600 700 Balance -400 103 5324 170 Meds/Results Medications: Active Medications Generic Name Dose Route Start Last Admin Trade Name Freq PRN Reason Stop Dose Admin Acetaminophen 650 mg 12/09/24 18:53 12/12/24 22:15 Acetaminophen 325 Mg Tablet PO 650 mg Q4H PRN Administration Mild Pain (1-3) or Fever Albuterol/Ipratropium 3 ml 12/10/24 08:00 12/13/24 07:57 Ipratropium 0.5 Mg/Albuterol Sulfate 2.5 Mg Ampul.Neb 3 Ml INHALATION 3 ml Q6HRT MINGO Administration Azithromycin 500 mg 12/14/24 09:00 Azithromycin 250 Mg Tablet PO DAILY MINGO Dextrose 12.5 gm 12/10/24 03:00 Dextrose 50% 25 Gm/50 Ml Syringe IV PUSH PRN PRN Hypoglycemia Protocol Ferrous Sulfate 142 mg 12/10/24 08:00 12/13/24 08:41 Ferrous Sulfate Dried 142 Mg Tabcr PO 142 mg DAILY@0800 MINGO Administration Fluticasone Propionate 1 spray 12/10/24 09:00 12/12/24 17:12 Fluticasone Propionate 0.05% Na Spr 16 Gm Btl (*Bkc) NASAL Not Given BID MINGO Glucagon 1 mg 12/10/24 03:00 Glucagon For Inj 1 Mg Vial IM PRN PRN Hypoglycemia Protocol Glucose 15 gm 12/10/24 03:00 Glucose Oral Gel 15 Gm Of Glucse In 37.5 Gm Tube PO PRN PRN Hypoglycemia Protocol Guaifenesin 1,200 mg 12/10/24 09:00 12/13/24 08:41 Guaifenesin 12 Hr 600 Mg Tabcr PO 1,200 mg Q12HR MINGO Administration Dextrose 1,000 mls @ 100 mls/hr 12/10/24 03:00 Dextrose 5% 1,000 Ml IVPB PRN PRN Hypoglycemia Protocol Ceftriaxone Sodium 1 gm in 50 mls @ 100 mls/hr 12/10/24 11:55 12/13/24 08:41 Rocephin 1 Gm/Ns 50 Ml IVPB 100 mls/hr Q12HR MINGO Administration Insulin Aspart 2 - 5 units 12/10/24 08:00 12/12/24 18:27 Insulin Aspart (*Bkc) 100 Units/Ml SUB-Q Not Given TIDWM [facility] Protocol Insulin Aspart 1 - 2 units 12/10/24 21:00 12/12/24 21:13 Insulin Aspart (*Bkc) 100 Units/Ml SUB-Q Not Given HS [facility] Protocol Lisinopril 5 mg 12/10/24 14:05 12/13/24 08:41 Lisinopril 5 Mg Tablet PO 5 mg QAM MINGO Administration Methylprednisolone Sodium Succinate 40 mg 12/13/24 10:30 Methylprednisolone Sod Succ 40 Mg Vial IV PUSH Q4H MINGO Metoprolol Tartrate 25 mg 12/12/24 21:00 12/13/24 06:18 Metoprolol Tartrate 25 Mg Tablet PO 25 mg 07,21 [facility] Administration Morphine Sulfate 2 mg 12/10/24 03:58 12/10/24 08:36 Morphine Sulfate (*Crx) 2 Mg/Ml Inj IV PUSH 2 mg Q4H PRN Administration Pain Rated 7-10 Ondansetron HCl 4 mg 12/09/24 18:53 12/11/24 19:06 Ondansetron Inj 4 Mg/2 Ml Vial IV PUSH 4 mg Q4H PRN Administration Nausea Oxycodone HCl 5 mg 12/10/24 10:48 12/13/24 06:18 Oxycodone Hcl (*Crx) 5 Mg Tab Ir PO 5 mg Q4H PRN Administration Pain Rated 7-10 Pantoprazole Sodium 40 mg 12/13/24 07:00 12/13/24 06:18 Pantoprazole 40 Mg Tablet PO 40 mg 0700 [facility] Administration Radiology Results: ITS Impressions Chest/Abdomen/Pelvis CT 12/09/24 17:27 IMPRESSION: Panlobular emphysematous disease. Findings within the right mid to lower lung field for which a pleural-based mass is suspected. Small right-sided pleural effusion is also noted. No acute pathology within the abdomen or pelvis. Abdomen Ultrasound 12/09/24 18:06 IMPRESSION: Limited evaluation of pancreas secondary to overlying bowel gas. No evidence of cholecystitis or cholelithiasis, consistent with recent CT examination, performed on the same day. Pulmonary Perfusion Imaging 12/10/24 15:37 IMPRESSION: 1. Intermediate probability for pulmonary embolism. 2. Small bilateral pleural effusions, right greater than left 3. Diffuse bilateral decreased washout of activity on the ventilation images consistent with obstructive pulmonary disease. Venous Doppler Study 12/11/24 08:13 IMPRESSION: Negative bilateral lower extremity venous US. No deep vein thrombosis. Chest X-Ray 12/13/24 06:21 IMPRESSION: Interval development of a right-sided parapneumonic effusion with interval worsening of the airspace disease within the right mid to lower lung field. Labs Labs: Laboratory Results - last 24 hr 12/10/24 12/10/24 12/12/24 04:26 08:57 12:01 WBC RBC Hgb Hct MCV MCH MCHC RDW Plt Count MPV Immature Gran % (Auto) Neut % (Auto) Lymph % (Auto) Schleicher % (Auto) Eos % (Auto) Baso % (Auto) Lymph # (Auto) Schleicher # (Auto) Eos # (Auto) Baso # (Auto) Abs Immat Gran (auto) Absolute Neuts (auto) Absolute Nucleated RBC Band Neutrophils % Nucleated RBC % Platelet Estimate Hypochromasia Anisocytosis Ovalocytes Schistocytes Sodium Potassium Chloride Carbon Dioxide Anion Gap BUN Creatinine Estim Creat Clear Calc Estimated GFR Glucose POC Capillary Glucose 122 H Calcium Magnesium Total Bilirubin AST ALT Alkaline Phosphatase Total Protein Albumin Ur L.pneumophila Ag Not detected Mycoplasma pneumon IgM 122 Urine Pneumococcal Ag Not detected 12/12/24 12/12/24 12/13/24 16:33 19:48 06:42 WBC 6.9 RBC 3.95 L Hgb 9.5 L Hct 33.9 L MCV 85.8 MCH 24.1 L MCHC 28.0 L RDW 18.1 H Plt Count 362 MPV 8.8 Immature Gran % (Auto) 0.4 Neut % (Auto) 70.9 Lymph % (Auto) 10.9 L Schleicher % (Auto) 9.8 H Eos % (Auto) 7.4 H Baso % (Auto) 0.6 Lymph # (Auto) 0.75 L Schleicher # (Auto) 0.7 H Eos # (Auto) 0.5 H Baso # (Auto) 0.0 Abs Immat Gran (auto) 0.03 Absolute Neuts (auto) 4.9 Absolute Nucleated RBC 0.000 Band Neutrophils % Not Reportable Nucleated RBC % 0.0 Platelet Estimate Adequate Hypochromasia 1+ Anisocytosis 1+ Ovalocytes 1+ Schistocytes None seen Sodium 139 Potassium 3.0 L Chloride 100 Carbon Dioxide 37 H Anion Gap 2 L BUN 5 L Creatinine 0.39 L Estim Creat Clear Calc 94 Estimated GFR > 60 Glucose 126 H POC Capillary Glucose 123 H 152 H Calcium 9.2 Magnesium 1.6 Total Bilirubin 0.2 AST 28 ALT 22 Alkaline Phosphatase 112 Total Protein 6.0 L Albumin 2.9 L Ur L.pneumophila Ag Mycoplasma pneumon IgM Urine Pneumococcal Ag 12/13/24 08:11 WBC RBC Hgb Hct MCV MCH MCHC RDW Plt Count MPV Immature Gran % (Auto) Neut % (Auto) Lymph % (Auto) Schleicher % (Auto) Eos % (Auto) Baso % (Auto) Lymph # (Auto) Schleicher # (Auto) Eos # (Auto) Baso # (Auto) Abs Immat Gran (auto) Absolute Neuts (auto) Absolute Nucleated RBC Band Neutrophils % Nucleated RBC % Platelet Estimate Hypochromasia Anisocytosis Ovalocytes Schistocytes Sodium Potassium Chloride Carbon Dioxide Anion Gap BUN Creatinine Estim Creat Clear Calc Estimated GFR Glucose POC Capillary Glucose 119 H Calcium Magnesium Total Bilirubin AST ALT Alkaline Phosphatase Total Protein Albumin Ur L.pneumophila Ag Mycoplasma pneumon IgM Urine Pneumococcal Ag
--- NOTE | 2024-12-13 11:30 | P.PNIM_ITS ---
Progress Note: A&P Assessment and Plan (1) Fecal occult blood test positive: Code(s): R19.5 - Other fecal abnormalities Status: Acute Assessment and Plan: * EGD negative for any acute findings other than gastritis. * GI will follow as outpt. * Hold pharmacological anticoagulation in this setting for now and provide SCD's. * Pt to have outpt colonoscopy once she has recovered from her PNA. (2) Sepsis: Qualifiers: Sepsis type: sepsis due to unspecified organism Sepsis acute organ dysfunction status: unspecified Qualified Code(s): A41.9 - Sepsis, unspecified organism Code(s): A41.9 - Sepsis, unspecified organism Status: Resolved Assessment and Plan: * No longer meeting sepsis criteria. (3) Pneumonia: Qualifiers: Laterality: bilateral Lung location: unspecified part of lung P neumonia type: due to unspecified organism Qualified Code(s): J18.9 - Pneumonia, unspecified organism Code(s): J18.9 - Pneumonia, unspecified organism Status: Acute Assessment and Plan: * Continue rocephin, Azithromycin * Continue to collaborate with Pulmonology. * Continue supplemental oxygen as needed. * Continue Duoneb * Trend and monitor labs and VS. * Received fluid resuscitation * Blood and sputum cultures pending * Chest CT showed emphysema disease with concerns for a pleural based mass * V/Q scan: Intermediate probability for pulmonary embolism. Venous Doppler shows no DVT of lower extremities * Awaiting results of Legionella, Mycoplasma and Pneumococcal antigens. 12/13/24: * CXR perfomed today show no change in the PNA, but does show a new right pleural effusion that is possibly loculated. Dr. Penn aware. CTA PE protocol ordered for further evaluation. * Continue oxygen, nebs, abx. * Final Sputum cx showing mixed bacterial cristina. * Prelim BCx2 w/NGTD. * Urine Legionella negative * Urine Pneumococcal negative * Mycoplasma negative. * Continue to co-manage with Pulmonology. (4) Acute kidney injury: Code(s): N17.9 - Acute kidney failure, unspecified Status: Resolved Assessment and Plan: * Now resolved. (5) Mass of right lung: Code(s): R91.8 - Other nonspecific abnormal finding of lung field Status: Acute Assessment and Plan: * Management and development of plan per Pulmonology. * Pt's overall disease process is thought to be due to PNA and not underlying mass. * Continue treatment as per Pulm. noted above. (6) Hyperglycemia: Code(s): R73.9 - Hyperglycemia, unspecified Status: Acute Assessment and Plan: * Continue SSI * Continue Hypoglycemic protocol * Continue glucose checks * Change diet to Diabetic diet. * A1C is 4.9. 12/13/24: * No changes in plan of care for pt. (7) Hypokalemia: Code(s): E87.6 - Hypokalemia Status: Acute Assessment and Plan: 12/13/24: * Potassium this AM is 3.0. 40 mEq po given and will continue to trend. (8) Chronic obstructive pulmonary disease: Code(s): J44.9 - Chronic obstructive pulmonary disease, unspecified Status: Chronic Assessment and Plan: * Appreciate continued management per Pulmonology. * Continue above mentioned measures including monitoring, oxygen, nebs (9) Chronic respiratory failure with hypoxia, on home oxygen therapy: Code(s): J96.11 - Chronic respiratory failure with hypoxia; Z99.81 - Dependence on supplemental oxygen Status: Chronic Assessment and Plan: * See #7 (10) Anemia: Qualifiers: Anemia type: iron deficiency Iron deficiency anemia type: chronic blood loss Qualified Code(s): D50.0 - Iron deficiency anemia secondary to blood loss (chronic) Code(s): D64.9 - Anemia, unspecified Status: Chronic Assessment and Plan: * Stable today without any decrease. * Three days of flat Hgb. * Continue to monitor and trend. 12/13/24: * Acute on chronic and stable. * Continue to trend and continue supplemental Iron. (11) Hypertension: Code(s): I10 - Essential (primary) hypertension Status: Acute Assessment and Plan: * Continue Lisinopril and Metoprolol * Continue to trend and adjust as needed. 12/13/24: * BP ranging 130s-150s/50s-70s. * Continue current regimen and monitor. Time Spent With Patient Time with patient: 25 - 35 minutes Subjective Date/time seen: 12/13/24 11:30 Interval history: This very pleasant pt was examined at the bedside this AM sitting up in the bed. She continues to have pain on the right side of the thorax with breathing and she continues to feel dyspneic. We have not been able to wean oxygen to this point. She has no new acute complaints today other than the continued complaint of feeling dyspneic and feeling pain with breathing. CXR this AM shows no change in infection, but a new right pleural effusion that is possibly loculated. We are co-managing pt's care with Pulmonology, Dr. Penn who has also evaluated pt this AM and would like a CTA PE protocol ordered to rule out PE, but he has a higher suspicion that it is worsening of her PNA. This is ordered with premedication as she has an allergy listed to IVP Dye. He has changed her Azithromycin to po and wants to continue Rocephin at this time. Review of Systems Review of Systems: All systems reviewed & are unremarkable except as noted in HPI and below Exam Narrative: GENERAL: Pleasant, in no acute distress. Well-nourished. - EYES: EOMI. Anicteric. - HENT: Moist mucous membranes. - LUNGS: Diminished throughout with so me crackles noted RLL. - CARDIOVASCULAR: Regular rate and rhyth m. No murmur. No JVD. - ABDOMEN: Soft, non-tender and non-dist ended. No palpable masses. - EXTREMITIES: No edema. Peripheral puls es 2+. Non-tender. - NEUROLOGIC: No focal neurological defi cits. CN II-XII grossly intact. - PSYCHIATRIC: Awake, Alert and oriented x 3. Appropriate mood and affect. - SKIN: No rashes or lesions. Warm. - LYMPH: No cervical lymphadenopathy. Objective Data Vital Signs Vital Signs: Vital Signs - 24 hr 12/12/24 14:07 12/12/24 14:43 12/12/24 20:00 Temperature 98.1 F Pulse Rate 83 80 93 Respiratory Rate 20 18 13 Blood Pressure 139/53 L Pulse Oximetry 96 97 Oxygen Delivery Nasal Cannula Oxygen Flow Rate 3 12/12/24 20:17 12/12/24 20:17 12/12/24 20:27 Temperature Pulse Rate 97 97 97 Respiratory Rate 18 18 Blood Pressure Pulse Oximetry 96 Oxygen Delivery Nasal Cannula Oxygen Flow Rate 3 12/12/24 20:35 12/12/24 21:24 12/13/24 02:18 Temperature 97.2 F L Pulse Rate 97 93 97 Respiratory Rate 13 18 Blood Pressure 155/72 H Pulse Oximetry 97 Oxygen Delivery Oxygen Flow Rate 12/13/24 02:28 12/13/24 05:13 12/13/24 06:18 Temperature 97.1 F L Pulse Rate 97 76 76 Respiratory Rate 18 13 Blood Pressure 133/57 L Pulse Oximetry 100 Oxygen Delivery Oxygen Flow Rate 12/13/24 07:59 12/13/24 07:59 12/13/24 08:11 Temperature Pulse Rate 61 62 Respiratory Rate 20 20 Blood Pressure Pulse Oximetry 96 Oxygen Delivery Nasal Cannula Oxygen Flow Rate 3 Intake/Output Intake/Output: Intake & Output 12/10/24 12/11/24 12/12/24 12/13/24 23:59 23:59 23:59 23:59 Intake Total 1390 1590 1525 170 Output Total 1600 700 Balance -063 711 5297 170 Meds/Results Medications: Active Medications Generic Name Dose Route Start Last Admin Trade Name Freq PRN Reason Stop Dose Admin Acetaminophen 650 mg 12/09/24 18:53 12/12/24 22:15 Acetaminophen 325 Mg Tablet PO 650 mg Q4H PRN Administration Mild Pain (1-3) or Fever Albuterol/Ipratropium 3 ml 12/10/24 08:00 12/13/24 07:57 Ipratropium 0.5 Mg/Albuterol Sulfate 2.5 Mg Ampul.Neb 3 Ml INHALATION 3 ml Q6HRT MINGO Administration Azithromycin 500 mg 12/14/24 09:00 Azithromycin 250 Mg Tablet PO DAILY MINGO Dextrose 12.5 gm 12/10/24 03:00 Dextrose 50% 25 Gm/50 Ml Syringe IV PUSH PRN PRN Hypoglycemia Protocol Ferrous Sulfate 142 mg 12/10/24 08:00 12/13/24 08:41 Ferrous Sulfate Dried 142 Mg Tabcr PO 142 mg DAILY@0800 MINGO Administration Fluticasone Propionate 1 spray 12/10/24 09:00 12/12/24 17:12 Fluticasone Propionate 0.05% Na Spr 16 Gm Btl (*Bkc) NASAL Not Given BID MINGO Glucagon 1 mg 12/10/24 03:00 Glucagon For Inj 1 Mg Vial IM PRN PRN Hypoglycemia Protocol Glucose 15 gm 12/10/24 03:00 Glucose Oral Gel 15 Gm Of Glucse In 37.5 Gm Tube PO PRN PRN Hypoglycemia Protocol Guaifenesin 1,200 mg 12/10/24 09:00 12/13/24 08:41 Guaifenesin 12 Hr 600 Mg Tabcr PO 1,200 mg Q12HR MINGO Administration Dextrose 1,000 mls @ 100 mls/hr 12/10/24 03:00 Dextrose 5% 1,000 Ml IVPB PRN PRN Hypoglycemia Protocol Ceftriaxone Sodium 1 gm in 50 mls @ 100 mls/hr 12/10/24 11:55 12/13/24 08:41 Rocephin 1 Gm/Ns 50 Ml IVPB 100 mls/hr Q12HR MINGO Administration Insulin Aspart 2 - 5 units 12/10/24 08:00 12/12/24 18:27 Insulin Aspart (*Bkc) 100 Units/Ml SUB-Q Not Given TIDWM [facility] Protocol Insulin Aspart 1 - 2 units 12/10/24 21:00 12/12/24 21:13 Insulin Aspart (*Bkc) 100 Units/Ml SUB-Q Not Given HS [facility] Protocol Lisinopril 5 mg 12/10/24 14:05 12/13/24 08:41 Lisinopril 5 Mg Tablet PO 5 mg QAM [facility] Administration Methylprednisolone Sodium Succinate 40 mg 12/13/24 10:30 Methylprednisolone Sod Succ 40 Mg Vial IV PUSH Q4H [facility] Metoprolol Tartrate 25 mg 12/12/24 21:00 12/13/24 06:18 Metoprolol Tartrate 25 Mg Tablet PO 25 mg 0721 [facility] Administration Morphine Sulfate 2 mg 12/10/24 03:58 12/10/24 08:36 Morphine Sulfate (*Crx) 2 Mg/Ml Inj IV PUSH 2 mg Q4H PRN Administration Pain Rated 7-10 Ondansetron HCl 4 mg 12/09/24 18:53 12/11/24 19:06 Ondansetron Inj 4 Mg/2 Ml Vial IV PUSH 4 mg Q4H PRN Administration Nausea Oxycodone HCl 5 mg 12/10/24 10:48 12/13/24 06:18 Oxycodone Hcl (*Crx) 5 Mg Tab Ir PO 5 mg Q4H PRN Administration Pain Rated 7-10 Pantoprazole Sodium 40 mg 12/13/24 07:00 12/13/24 06:18 Pantoprazole 40 Mg Tablet PO 40 mg 0700 [facility]O Administration Radiology Results: ITS Impressions Chest/Abdomen/Pelvis CT 12/09/24 17:27 IMPRESSION: Panlobular emphysematous disease. Findings within the right mid to lower lung field for which a pleural-based mass is suspected. Small right-sided pleural effusion is also noted. No acute pathology within the abdomen or pelvis. Abdomen Ultrasound 12/09/24 18:06 IMPRESSION: Limited evaluation of pancreas secondary to overlying bowel gas. No evidence of cholecystitis or cholelithiasis, consistent with recent CT examination, performed on the same day. Pulmonary Perfusion Imaging 12/10/24 15:37 IMPRESSION: 1. Intermediate probability for pulmonary embolism. 2. Small bilateral pleural effusions, right greater than left 3. Diffuse bilateral decreased washout of activity on the ventilation images consistent with obstructive pulmonary disease. Venous Doppler Study 12/11/24 08:13 IMPRESSION: Negative bilateral lower extremity venous US. No deep vein thrombosis. Chest X-Ray 12/13/24 06:21 IMPRESSION: Interval development of a right-sided parapneumonic effusion with interval worsening of the airspace disease within the right mid to lower lung field. Labs Labs: Laboratory Results - last 24 hr 12/10/24 12/10/24 12/12/24 04:26 08:57 12:01 WBC RBC Hgb Hct MCV MCH MCHC RDW Plt Count MPV Immature Gran % (Auto) Neut % (Auto) Lymph % (Auto) [place] % (Auto) Eos % (Auto) Baso % (Auto) Lymph # (Auto) [place] # (Auto) Eos # (Auto) Baso # (Auto) Abs Immat Gran (auto) Absolute Neuts (auto) Absolute Nucleated RBC Band Neutrophils % Nucleated RBC % Platelet Estimate Hypochromasia Anisocytosis Ovalocytes Schistocytes Sodium Potassium Chloride Carbon Dioxide Anion Gap BUN Creatinine Estim Creat Clear Calc Estimated GFR Glucose POC Capillary Glucose 122 H Calcium Magnesium Total Bilirubin AST ALT Alkaline Phosphatase Total Protein Albumin Ur L.pneumophila Ag Not detected Mycoplasma pneumon IgM 122 Urine Pneumococcal Ag Not detected 12/12/24 12/12/24 12/13/24 16:33 19:48 06:42 WBC 6.9 RBC 3.95 L Hgb 9.5 L Hct 33.9 L MCV 85.8 MCH 24.1 L MCHC 28.0 L RDW 18.1 H Plt Count 362 MPV 8.8 Immature Gran % (Auto) 0.4 Neut % (Auto) 70.9 Lymph % (Auto) 10.9 L [place] % (Auto) 9.8 H Eos % (Auto) 7.4 H Baso % (Auto) 0.6 Lymph # (Auto) 0.75 L [place] # (Auto) 0.7 H Eos # (Auto) 0.5 H Baso # (Auto) 0.0 Abs Immat Gran (auto) 0.03 Absolute Neuts (auto) 4.9 Absolute Nucleated RBC 0.000 Band Neutrophils % Not Reportable Nucleated RBC % 0.0 Platelet Estimate Adequate Hypochromasia 1+ Anisocytosis 1+ Ovalocytes 1+ Schistocytes None seen Sodium 139 Potassium 3.0 L Chloride 100 Carbon Dioxide 37 H Anion Gap 2 L BUN 5 L Creatinine 0.39 L Estim Creat Clear Calc 94 Estimated GFR > 60 Glucose 126 H POC Capillary Glucose 123 H 152 H Calcium 9.2 Magnesium 1.6 Total Bilirubin 0.2 AST 28 ALT 22 Alkaline Phosphatase 112 Total Protein 6.0 L Albumin 2.9 L Ur L.pneumophila Ag Mycoplasma pneumon IgM Urine Pneumococcal Ag 12/13/24 08:11 WBC RBC Hgb Hct MCV MCH MCHC RDW Plt Count MPV Immature Gran % (Auto) Neut % (Auto) Lymph % (Auto) [place] % (Auto) Eos % (Auto) Baso % (Auto) Lymph # (Auto) [place] # (Auto) Eos # (Auto) Baso # (Auto) Abs Immat Gran (auto) Absolute Neuts (auto) Absolute Nucleated RBC Band Neutrophils % Nucleated RBC % Platelet Estimate Hypochromasia Anisocytosis Ovalocytes Schistocytes Sodium Potassium Chloride Carbon Dioxide Anion Gap BUN Creatinine Estim Creat Clear Calc Estimated GFR Glucose POC Capillary Glucose 119 H Calcium Magnesium Total Bilirubin AST ALT Alkaline Phosphatase Total Protein Albumin Ur L.pneumophila Ag Mycoplasma pneumon IgM Urine Pneumococcal Ag Quality VTE Prophylaxis VTE prophylaxis: mechanical ordered
[2024-12-13] MEDS: methylPREDNISolone SOD SUCC 40 MG VIAL IV PUSH ×2 (11:32→14:48)
[2024-12-13 11:56] LABS: Glucose Point of Care 132 mg/dl (65-105)
[2024-12-13] MEDS: diphenhydrAMINE HCl INJ 50 MG/ML VIAL IV PUSH (14:43)
[2024-12-13 17:05] LABS: Glucose Point of Care 358 mg/dl (65-105)
[2024-12-13] MEDS: INSULIN ASPART (*BKC) 100 UNITS/ML SUB-Q ×2 (17:27→21:04)
[2024-12-13 20:30] LABS: Glucose Point of Care 297 mg/dl (65-105)
[2024-12-13] MEDS: SALINE LOCK FLUSH 10 ML IV PUSH (21:05)
[2024-12-14] VITALS (10 sets, daily range): BP systolic 139–191; BP diastolic 67–78; PULSE 74–98; RESP 18–22; TEMP 36.4–36.6; O2SAT 99–100
[2024-12-14] MEDS: IPRATROPIUM 0.5 MG/ALBUTEROL SULFATE 2.5 MG AMPUL.NEB 3 ML INHALATION ×2 (01:36→14:35)
[2024-12-14] MEDS: oxyCODONE HCL (*CRX) 5 MG TAB IR PO ×2 (04:20→10:26)
[2024-12-14 04:53] LABS: Basophils Percent Auto 0.1 % (0.2-1.2); Hematocrit 32.8 % (37.0-47.0); Hemoglobin 9.6 g/dL (12.0-15.0); Immature Granulocyte Absolute 0.04 K/mm3 (0.00-0.031); Immature Granulocyte Percent A 0.5 % (0-0.5); Lymphocytes Absolute Auto 0.33 K/mm3 (0.9-3.2); Lymphocytes Percent Auto 4.4 % (18.3-44.2); Mean Corpuscular HGB Conc 29.3 g/dl (32-36); Mean Corpuscular Hemoglobin 24.6 pg (26-34); Mean Corpuscular Volume 83.9 fl (80-100); Mean Platelet Volume 8.9 fl (7.4-10.4); Monocytes Absolute Auto 0.2 K/mm3 (0.1-0.6); Monocytes Percent Auto 2.4 % (2.6-8.5); Neutrophils Absolute Auto 6.9 K/mm3 (1.3-6.7); Neutrophils Percent Auto 92.6 % (45.5-73.1); Platelet Count Result 448 k/mm3 (150-375); Red Blood Count 3.91 M/mm3 (4.2-5.4); Red Cell Distribution Width 18.1 % (11.5-14.5); White Blood Count 7.4 K/mm3 (4.5-10.0)
[2024-12-14 05:09] LABS: Alanine Aminotransferase 19 U/L (6-35); Albumin Level 3.1 g/dL (3.5-5.1); Alkaline Phosphatase 108 U/L (38-126); Anion Gap 2 mmol/L (4-12); Aspartate Amino Transferase 21 U/L (14-36); Bilirubin,Total 0.1 mg/dL (0.2-1.3); Blood Urea Nitrogen 12 mg/dL (7-17); Calcium 9.6 mg/dL (8.4-10.2); Carbon Dioxide 36 mmol/L (22-30); Chloride 100 mmol/L (98-107); Estimated CRCL calculation 67 ml/min; Estimated Glomerular Filt Rate > 60; Glucose 239 mg/dL (65-110); Magnesium 1.8 mg/dL (1.6-2.3); Potassium 3.8 mmol/L (3.4-5.0); Sodium 138 mmol/L (137-145)
[2024-12-14 05:21] LABS: Anisocytosis 1+; Platelet Estimate Adequate (Adequate); Schistocytes Rare
[2024-12-14] MEDS: METOPROLOL TARTRATE 25 MG TABLET PO ×2 (06:18→20:53)
[2024-12-14] MEDS: SALINE LOCK FLUSH 10 ML IV PUSH ×3 (06:18→20:54)
[2024-12-14] MEDS: PANTOPRAZOLE 40 MG TABLET PO (06:18)
[2024-12-14 07:45] LABS: Glucose Point of Care 144 mg/dl (65-105)
[2024-12-14] MEDS: AZITHROMYCIN 250 MG TABLET 500 MG PO (08:18)
[2024-12-14] MEDS: lisinopriL 5 MG TABLET PO (08:18)
[2024-12-14] MEDS: guaiFENesin 12 HR 600 MG TABCR 1200 MG PO ×2 (08:18→20:53)
--- NOTE | 2024-12-14 08:50 | P.PNPL_ITS ---
Progress Note: A&P Assessment and Plan (1) Emphysema lung: Code(s): J43.9 - Emphysema, unspecified Status: Acute (2) Pneumonia: Qualifiers: Laterality: bilateral Lung location: unspecified part of lung Pneumonia type: due to unspecified organism Qualified Code(s): J18.9 - Pneumonia, unspecified organism Code(s): J18.9 - Pneumonia, unspecified organism Status: Acute Assessment and Plan: This 69-year-old female with a history of COPD and chronic hypoxemic respiratory failure on supplemental oxygen presented with right pleuritic chest pain, leukocytosis, and new lung infiltrates/consolidation in the right subpleural area. Her presentation, along with diagnostic studies, suggests community- acquired pneumonia, given her positive response to antibiotics and declining white blood cell count. The patient continues to experience right pleuritic chest pain, necessitating the use of opiates for improved pain management. WBC is back into the normal range although the patient continues to have a right pleuritic chest pain related to peripheral location of pneumonia. New chest x- ray showed in addition to previous infiltrate new pleural effusion on right likely loculated. Urine antigen negative for community-acquired pneumonia. The patient underwent a CT Pulmonary Angiography (CT PA) yesterday, which revealed a moderate increase in left pleural effusion compared to a previous study. Additionally, there was a persistent pleural-based mass within the right middle lobe, which showed enhancement with intravenous contrast. This latter finding raises concerns about a potential malignancy, especially since the right pleuritic chest pain persists despite treatment for community-acquired pneumonia, normalization of the white cell count, and improvement in cough and sputum production. This suggests that the symptoms may not be solely due to pneumonia, but could be related to a possible malignancy. Plan: We will continue with the current treatment regimen for now. A right thoracentesis will be performed. Depending on the results of the pleural fluid analysis, the patient may require further biopsy of the right lung consolidation/mass, which, based on the latest CT, exhibits characteristics that could indicate pleural-based malignancy. (3) Chronic obstructive pulmonary disease: Code(s): J44.9 - Chronic obstructive pulmonary disease, unspecified Status: Chronic (4) Chronic respiratory failure with hypoxia, on home oxygen therapy: Code(s): J96.11 - Chronic respiratory failure with hypoxia; Z99.81 - Dependence on supplemental oxygen Status: Chronic Subjective Date/time seen: 12/14/24 08:51 Interval history: Patient continues to complain of right pleuritic chest pain which has been more or less unchanged over the last 48 hours. She still on antibiotics for community-acquired pneumonia with sputum now being light yellow less in amount a nd cough also significantly less. She underwent CT PA yesterday. She is still requiring pain medications for right pleuritic chest pain. Review of Systems Review of Systems: All systems reviewed & are unremarkable except as noted in HPI and below Exam Narrative: GENERAL APPEARANCE: Well developed, well nourished, alert and cooperative, and appears to be in no acute distress SKIN: Inspection of the skin reveals no rashes, ulcerations or petechiae. HEENT: Sclerae anicteric and conjunctivae pink and moist. Extraocular movements were intact and pupils were equal, round, and reactive to light. The oral mucosa, hard and soft palate, tongue and posterior pharynx were normal. NECK: Supple. There was no thyroid enlargement, and no tenderness, or masses were felt. CHEST: Normal AP diameter and normal contour without any kyphoscoliosis. LUNGS: Distant breath sounds few crackles right lung base posteriorly no wheezing CARDIAC: There was a regular rate and rhythm without any murmurs, gallops, rubs. ABDOMEN: Soft and nontender with normal bowel sounds. There was no organomegaly. LYMPH NODES: No lymphadenopathy was appreciated in the neck. EXTREMITIES: No cyanosis, clubbing or edema. NEUROLOGIC: Alert and oriented x 3. Normal affect. Objective Data Vital Signs Vital Signs: Vital Signs - 24 hr 12/13/24 14:28 12/13/24 14:39 12/13/24 14:40 Temperature 36.6 C Pulse Rate 99 74 Respiratory Rate 18 20 Blood Pressure 210/105 H 166/72 H Pulse Oximetry 98 Oxygen Delivery Oxygen Flow Rate Fraction of Inspired Oxygen 12/13/24 19:38 12/13/24 19:38 12/13/24 19:47 Temperature Pulse Rate 74 77 Respiratory Rate 20 20 Blood Pressure Pulse Oximetry 96 Oxygen Delivery Nasal Cannula Oxygen Flow Rate 3 Fraction of Inspired Oxygen 32 12/13/24 20:00 12/13/24 21:03 12/13/24 21:59 Temperature 36.6 C Pulse Rate 108 H 108 H 108 H Respiratory Rate 20 20 Blood Pressure 159/70 H Pulse Oximetry 96 98 Oxygen Delivery Nasal Cannula Oxygen Flow Rate 3 Fraction of Inspired Oxygen 32 12/13/24 22:00 12/14/24 01:38 12/14/24 01:46 Temperature 36.6 C Pulse Rate 108 H 76 74 Respiratory Rate 20 18 18 Blood Pressure 159/70 H Pulse Oximetry 98 Oxygen Delivery Oxygen Flow Rate Fraction of Inspired Oxygen 12/14/24 05:28 12/14/24 06:18 Temperature 36.5 C Pulse Rate 81 81 Respiratory Rate 18 Blood Pressure 162/78 H Pulse Oximetry 99 Oxygen Delivery Oxygen Flow Rate Fraction of Inspired Oxygen Intake/Output Intake/Output: Intake & Output 12/11/24 12/12/24 12/13/24 12/14/24 23:59 23:59 23:59 23:59 Intake Total 1590 1525 390 500 Output Total 700 Balance 890 1525 390 500 Meds/Results Medications: Active Medications Generic Name Dose Route Start Last Admin Trade Name Freq PRN Reason Stop Dose Admin Acetaminophen 650 mg 12/09/24 18:53 12/12/24 22:15 Acetaminophen 325 Mg Tablet PO 650 mg Q4H PRN Administration Mild Pain (1-3) or Fever Albuterol/Ipratropium 3 ml 12/10/24 08:00 12/14/24 01:36 Ipratropium 0.5 Mg/Albuterol Sulfate 2.5 Mg Ampul.Neb 3 Ml INHALATION 3 ml Q6HRT MINGO Administration Azithromycin 500 mg 12/14/24 09:00 12/14/24 08:18 Azithromycin 250 Mg Tablet PO 500 mg DAILY MINGO Administration Dextrose 12.5 gm 12/10/24 03:00 Dextrose 50% 25 Gm/50 Ml Syringe IV PUSH PRN PRN Hypoglycemia Protocol Ferrous Sulfate 142 mg 12/10/24 08:00 12/13/24 08:41 Ferrous Sulfate Dried 142 Mg Tabcr PO 142 mg DAILY@0800 MINGO Administration Fluticasone Propionate 1 spray 12/10/24 09:00 12/13/24 17:27 Fluticasone Propionate 0.05% Na Spr 16 Gm Btl (*Bkc) NASAL Not Given BID MINGO Glucagon 1 mg 12/10/24 03:00 Glucagon For Inj 1 Mg Vial IM PRN PRN Hypoglycemia Protocol Glucose 15 gm 12/10/24 03:00 Glucose Oral Gel 15 Gm Of Glucse In 37.5 Gm Tube PO PRN PRN Hypoglycemia Protocol Guaifenesin 1,200 mg 12/10/24 09:00 12/14/24 08:18 Guaifenesin 12 Hr 600 Mg Tabcr PO 1,200 mg Q12HR MINGO Administration Hydralazine HCl 10 mg 12/13/24 15:23 Hydralazine Hcl 20 Mg/Ml Vial IV PUSH Q8H PRN Blood Pressure - High Dextrose 1,000 mls @ 100 mls/hr 12/10/24 03:00 Dextrose 5% 1,000 Ml IVPB PRN PRN Hypoglycemia Protocol Ceftriaxone Sodium 1 gm in 50 mls @ 100 mls/hr 12/10/24 11:55 12/14/24 08:19 Rocephin 1 Gm/Ns 50 Ml IVPB 100 mls/hr Q12HR MINGO Administration Insulin Aspart 2 - 5 units 12/10/24 08:00 12/13/24 17:27 Insulin Aspart (*Bkc) 100 Units/Ml SUB-Q 5 units TIDWM MINGO Administration Protocol Insulin Aspart 1 - 2 units 12/10/24 21:00 12/13/24 21:04 Insulin Aspart (*Bkc) 100 Units/Ml SUB-Q 1 units HS MINGO Administration Protocol Lisinopril 5 mg 12/10/24 14:05 12/14/24 08:18 Lisinopril 5 Mg Tablet PO 5 mg QAM MINGO Administration Metoprolol Tartrate 25 mg 12/12/24 21:00 12/14/24 06:18 Metoprolol Tartrate 25 Mg Tablet PO 25 mg 07,21 MINGO Administration Morphine Sulfate 2 mg 12/10/24 03:58 12/10/24 08:36 Morphine Sulfate (*Crx) 2 Mg/Ml Inj IV PUSH 2 mg Q4H PRN Administration Pain Rated 7-10 Ondansetron HCl 4 mg 12/09/24 18:53 12/11/24 19:06 Ondansetron Inj 4 Mg/2 Ml Vial IV PUSH 4 mg Q4H PRN Administration Nausea Oxycodone HCl 5 mg 12/10/24 10:48 12/14/24 04:20 Oxycodone Hcl (*Crx) 5 Mg Tab Ir PO 5 mg Q4H PRN Administration Pain Rated 7-10 Pantoprazole Sodium 40 mg 12/13/24 07:00 12/14/24 06:18 Pantoprazole 40 Mg Tablet PO 40 mg 0700 MINGO Administration Sodium Chloride 10 ml 12/13/24 22:00 12/14/24 06:18 Saline Lock Flush IV PUSH 10 ml Q8HR MINGO Administration Sodium Chloride 10 ml 12/13/24 15:20 Saline Lock Flush IV PUSH PRN PRN Flush Sodium Chloride 20 ml 12/13/24 15:20 Saline Lock Flush IV PUSH PRN PRN after blood draws Radiology Results: ITS Impressions Chest/Abdomen/Pelvis CT 12/09/24 17:27 IMPRESSION: Panlobular emphysematous disease. Findings within the right mid to lower lung field for which a pleural-based mass is suspected. Small right-sided pleural effusion is also noted. No acute pathology within the abdomen or pelvis. Abdomen Ultrasound 12/09/24 18:06 IMPRESSION: Limited evaluation of pancreas secondary to overlying bowel gas. No evidence of cholecystitis or cholelithiasis, consistent with recent CT examination, performed on the same day. Pulmonary Perfusion Imaging 12/10/24 15:37 IMPRESSION: 1. Intermediate probability for pulmonary embolism. 2. Small bilateral pleural effusions, right greater than left 3. Diffuse bilateral decreased washout of activity on the ventilation images consistent with obstructive pulmonary disease. Venous Doppler Study 12/11/24 08:13 IMPRESSION: Negative bilateral lower extremity venous US. No deep vein thrombosis. Chest X-Ray 12/13/24 06:21 IMPRESSION: Interval development of a right-sided parapneumonic effusion with interval worsening of the airspace disease within the right mid to lower lung field. Chest CTA 12/13/24 16:32 IMPRESSION: No pulmonary embolus. No thoracic aortic dissection. Interval increase in the right-sided pleural effusion, now with adjacent compressive consolidation (with air bronchograms) for which pneumonia is suspected. Redemonstration of the pleural-based mass within the right middle lobe, which enhances with intravenous contrast. Redemonstration of panlobular emphysematous disease, without effusion or infiltrate in the left hemithorax. Labs Labs: Laboratory Results - last 24 hr 12/13/24 12/13/24 12/13/24 11:48 16:55 20:17 WBC RBC Hgb Hct MCV MCH MCHC RDW Plt Count MPV Immature Gran % (Auto) Neut % (Auto) Lymph % (Auto) [place] % (Auto) Eos % (Auto) Baso % (Auto) Lymph # (Auto) [place] # (Auto) Eos # (Auto) Baso # (Auto) Abs Immat Gran (auto) Absolute Neuts (auto) Absolute Nucleated RBC Band Neutrophils % Nucleated RBC % Platelet Estimate Anisocytosis Schistocytes Sodium Potassium Chloride Carbon Dioxide Anion Gap BUN Creatinine Estim Creat Clear Calc Estimated GFR Glucose POC Capillary Glucose 132 H 358 H 297 H Calcium Magnesium Total Bilirubin AST ALT Alkaline Phosphatase Total Protein Albumin 12/14/24 12/14/24 04:27 07:38 WBC 7.4 RBC 3.91 L Hgb 9.6 L Hct 32.8 L MCV 83.9 MCH 24.6 L MCHC 29.3 L RDW 18.1 H Plt Count 448 H MPV 8.9 Immature Gran % (Auto) 0.5 Neut % (Auto) 92.6 H Lymph % (Auto) 4.4 L [place] % (Auto) 2.4 L Eos % (Auto) 0.0 Baso % (Auto) 0.1 L Lymph # (Auto) 0.33 L [place] # (Auto) 0.2 Eos # (Auto) 0.0 Baso # (Auto) 0.0 Abs Immat Gran (auto) 0.04 H Absolute Neuts (auto) 6.9 H Absolute Nucleated RBC 0.000 Band Neutrophils % Not Reportable Nucleated RBC % 0.0 Platelet Estimate Adequate Anisocytosis 1+ Schistocytes Rare Sodium 138 Potassium 3.8 Chloride 100 Carbon Dioxide 36 H Anion Gap 2 L BUN 12 D Creatinine 0.57 L Estim Creat Clear Calc 67 Estimated GFR > 60 Glucose 239 H POC Capillary Glucose 144 H Calcium 9.6 Magnesium 1.8 Total Bilirubin 0.1 L AST 21 ALT 19 Alkaline Phosphatase 108 Total Protein 6.0 L Albumin 3.1 L
--- NOTE | 2024-12-14 09:16 | P.PNIM_ITS ---
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 Qualified Code(s): D50.0 - Iron deficiency anemia secondary to blood loss (chronic) Code(s): D64.9 - Anemia, unspecified Status: Chronic (3) COPD (chronic obstructive pulmonary disease): Qualifiers: COPD type: unspecified COPD Qualified Code(s): J44.9 - Chronic obstructive pulmonary disease, unspecified Code(s): J44.9 - Chronic obstructive pulmonary disease, unspecified Status: Acute (4) Emphysema lung: Code(s): J43.9 - Emphysema, unspecified Status: Acute (5) Chronic respiratory failure with hypoxia, on home oxygen therapy: Code(s): J96.11 - Chronic respiratory failure with hypoxia; Z99.81 - Dependence on supplemental oxygen Status: Chronic Plan Lung mass and Pneumonia: Qualifiers: Laterality: bilateral Lung location: unspecified part of lung Pneumonia type: due to unspecified organism Qualified Code(s): J18.9 - Pneumonia, unspecified organism Code(s): J18.9 - Pneumonia, unspecified organism Chest CT showed emphysema disease with concerns for a pleural based mass Legionella negative. Urine Pneumococcal negative Mycoplasma negative. Tobacco Stripper recommend continue current treatment regimen, plans right thoracentesis and possible biopsy of the mass GI bleeding Fecal occult blood test positive: Code(s): R19.5 - Other fecal abnormalities Status: Acute Assessment and Plan: EGD negative for any acute findings other than gastritis. GI recommend colonoscopy in outpatient office Sepsis: Qualifiers: Sepsis type: sepsis due to unspecified organism Sepsis acute organ dysfunction status: unspecified Qualified Code(s): A41.9 - Sepsis, unspecified organism Code(s): A41.9 - Sepsis, unspecified organism Status: Resolved Acute kidney injury: Code(s): N17.9 - Acute kidney failure, unspecified Status: Resolved Assessment and Plan: Now resolved. Hyperglycemia: Code(s): R73.9 - Hyperglycemia, unspecified Status: Acute Assessment and Plan: Continue SSI Continue Hypoglycemic protocol Change diet to Diabetic diet. Hypokalemia: Code(s): E87.6 - Hypokalemia Status: Acute Assessment and Plan: 12/13/24: * Potassium this AM is 3.0. 40 mEq po given and will continue to trend. Chronic obstructive pulmonary disease: Code(s): J44.9 - Chronic obstructive pulmonary disease, unspecified Status: Chronic Assessment and Plan: * Appreciate continued management per Pulmonology. * Continue above mentioned measures including monitoring, oxygen, nebs Chronic respiratory failure with hypoxia, on home oxygen therapy: Code(s): J96.11 - Chronic respiratory failure with hypoxia; Z99.81 - Dependence on supplemental oxygen Status: Chronic Assessment and Plan: * See #7 * Anemia: Qualifiers: Anemia type: iron deficiency Iron deficiency anemia type: chronic blood loss Qualified Code(s): D50.0 - Iron deficiency anemia secondary to blood loss (chronic) Code(s): D64.9 - Anemia, unspecified Status: Chronic Assessment and Plan: Hemoglobin stable, continue supplemental Iron. Hypertension: Code(s): I10 - Essential (primary) hypertension Status: Acute Assessment and Plan: Continue Lisinopril and Metoprolol Subjective Date/time seen: 12/14/24 09:16 Interval history: I saw exam patient today, patient still has right chest wall, worse with a deep breath and cough. Patient denies shortness breath at rest, also denies headache, focal weakness, nausea vomiting. Patient is afebrile, blood pressure stable, pulse ox 99 on 3 L oxygen. Labs reviewed Exam Narrative: GENERAL: Pleasant, in no acute distress. Well-nourished. - EYES: EOMI. Anicteric. - HENT: Moist mucous membranes. - LUNGS: Diminished throughout with so me crackles noted RLL. - CARDIOVASCULAR: Regular rate and rhyth m. No murmur. No JVD. - ABDOMEN: Soft, non-tender and non-dist ended. No palpable masses. - EXTREMITIES: No edema. Peripheral puls es 2+. Non-tender. - NEUROLOGIC: No focal neurological defi cits. CN II-XII grossly intact. - PSYCHIATRIC: Awake, Alert and oriented x 3. Appropriate mood and affect. - SKIN: No rashes or lesions. Warm. - LYMPH: No cervical lymphadenopathy. Objective Data Vital Signs Vital Signs: Vital Signs - 24 hr 12/13/24 14:28 12/13/24 14:39 12/13/24 14:40 Temperature 97.9 F Pulse Rate 99 74 Respiratory Rate 18 20 Blood Pressure 210/105 H 166/72 H Pulse Oximetry 98 Oxygen Delivery Oxygen Flow Rate Fraction of Inspired Oxygen 12/13/24 19:38 12/13/24 19:38 12/13/24 19:47 Temperature Pulse Rate 74 77 Respiratory Rate 20 20 Blood Pressure Pulse Oximetry 96 Oxygen Delivery Nasal Cannula Oxygen Flow Rate 3 Fraction of Inspired Oxygen 32 12/13/24 20:00 12/13/24 21:03 12/13/24 21:59 Temperature 97.8 F Pulse Rate 108 H 108 H 108 H Respiratory Rate 20 20 Blood Pressure 159/70 H Pulse Oximetry 96 98 Oxygen Delivery Nasal Cannula Oxygen Flow Rate 3 Fraction of Inspired Oxygen 32 12/13/24 22:00 12/14/24 01:38 12/14/24 01:46 Temperature 97.8 F Pulse Rate 108 H 76 74 Respiratory Rate 20 18 18 Blood Pressure 159/70 H Pulse Oximetry 98 Oxygen Delivery Oxygen Flow Rate Fraction of Inspired Oxygen 12/14/24 05:28 12/14/24 06:18 Temperature 97.7 F Pulse Rate 81 81 Respiratory Rate 18 Blood Pressure 162/78 H Pulse Oximetry 99 Oxygen Delivery Oxygen Flow Rate Fraction of Inspired Oxygen Intake/Output Intake/Output: Intake & Output 12/11/24 12/12/24 12/13/24 12/14/24 23:59 23:59 23:59 23:59 Intake Total 1590 1525 390 500 Output Total 700 Balance 890 1525 390 500 Meds/Results Medications: Active Medications Generic Name Dose Route Start Last Admin Trade Name Freq PRN Reason Stop Dose Admin Acetaminophen 650 mg 12/09/24 18:53 12/12/24 22:15 Acetaminophen 325 Mg Tablet PO 650 mg Q4H PRN Administration Mild Pain (1-3) or Fever Albuterol/Ipratropium 3 ml 12/10/24 08:00 12/14/24 01:36 Ipratropium 0.5 Mg/Albuterol Sulfate 2.5 Mg Ampul.Neb 3 Ml INHALATION 3 ml Q6HRT MINGO Administration Azithromycin 500 mg 12/14/24 09:00 12/14/24 08:18 Azithromycin 250 Mg Tablet PO 500 mg DAILY MINGO Administration Dextrose 12.5 gm 12/10/24 03:00 Dextrose 50% 25 Gm/50 Ml Syringe IV PUSH PRN PRN Hypoglycemia Protocol Ferrous Sulfate 142 mg 12/10/24 08:00 12/13/24 08:41 Ferrous Sulfate Dried 142 Mg Tabcr PO 142 mg DAILY@0800 MINGO Administration Fluticasone Propionate 1 spray 12/10/24 09:00 12/13/24 17:27 Fluticasone Propionate 0.05% Na Spr 16 Gm Btl (*Bkc) NASAL Not Given BID MINGO Glucagon 1 mg 12/10/24 03:00 Glucagon For Inj 1 Mg Vial IM PRN PRN Hypoglycemia Protocol Glucose 15 gm 12/10/24 03:00 Glucose Oral Gel 15 Gm Of Glucse In 37.5 Gm Tube PO PRN PRN Hypoglycemia Protocol Guaifenesin 1,200 mg 12/10/24 09:00 12/14/24 08:18 Guaifenesin 12 Hr 600 Mg Tabcr PO 1,200 mg Q12HR MINGO Administration Hydralazine HCl 10 mg 12/13/24 15:23 Hydralazine Hcl 20 Mg/Ml Vial IV PUSH Q8H PRN Blood Pressure - High Dextrose 1,000 mls @ 100 mls/hr 12/10/24 03:00 Dextrose 5% 1,000 Ml IVPB PRN PRN Hypoglycemia Protocol Ceftriaxone Sodium 1 gm in 50 mls @ 100 mls/hr 12/10/24 11:55 12/14/24 08:19 Rocephin 1 Gm/Ns 50 Ml IVPB 100 mls/hr Q12HR MINGO Administration Insulin Aspart 2 - 5 units 12/10/24 08:00 12/13/24 17:27 Insulin Aspart (*Bkc) 100 Units/Ml SUB-Q 5 units TIDWM MINGO Administration Protocol Insulin Aspart 1 - 2 units 12/10/24 21:00 12/13/24 21:04 Insulin Aspart (*Bkc) 100 Units/Ml SUB-Q 1 units HS MINGO Administration Protocol Lisinopril 5 mg 12/10/24 14:05 12/14/24 08:18 Lisinopril 5 Mg Tablet PO 5 mg QAM MINGO Administration Metoprolol Tartrate 25 mg 12/12/24 21:00 12/14/24 06:18 Metoprolol Tartrate 25 Mg Tablet PO 25 mg 07,21 MINGO Administration Morphine Sulfate 2 mg 12/10/24 03:58 12/10/24 08:36 Morphine Sulfate (*Crx) 2 Mg/Ml Inj IV PUSH 2 mg Q4H PRN Administration Pain Rated 7-10 Ondansetron HCl 4 mg 12/09/24 18:53 12/11/24 19:06 Ondansetron Inj 4 Mg/2 Ml Vial IV PUSH 4 mg Q4H PRN Administration Nausea Oxycodone HCl 5 mg 12/10/24 10:48 12/14/24 04:20 Oxycodone Hcl (*Crx) 5 Mg Tab Ir PO 5 mg Q4H PRN Administration Pain Rated 7-10 Pantoprazole Sodium 40 mg 12/13/24 07:00 12/14/24 06:18 Pantoprazole 40 Mg Tablet PO 40 mg 0700 MINGO Administration Sodium Chloride 10 ml 12/13/24 22:00 12/14/24 06:18 Saline Lock Flush IV PUSH 10 ml Q8HR MINGO Administration Sodium Chloride 10 ml 12/13/24 15:20 Saline Lock Flush IV PUSH PRN PRN Flush Sodium Chloride 20 ml 12/13/24 15:20 Saline Lock Flush IV PUSH PRN PRN after blood draws Radiology Results: ITS Impressions Chest/Abdomen/Pelvis CT 12/09/24 17:27 IMPRESSION: Panlobular emphysematous disease. Findings within the right mid to lower lung field for which a pleural-based mass is suspected. Small right-sided pleural effusion is also noted. No acute pathology within the abdomen or pelvis. Abdomen Ultrasound 12/09/24 18:06 IMPRESSION: Limited evaluation of pancreas secondary to overlying bowel gas. No evidence of cholecystitis or cholelithiasis, consistent with recent CT examination, performed on the same day. Pulmonary Perfusion Imaging 12/10/24 15:37 IMPRESSION: 1. Intermediate probability for pulmonary embolism. 2. Small bilateral pleural effusions, right greater than left 3. Diffuse bilateral decreased washout of activity on the ventilation images consistent with obstructive pulmonary disease. Venous Doppler Study 12/11/24 08:13 IMPRESSION: Negative bilateral lower extremity venous US. No deep vein thrombosis. Chest X-Ray 12/13/24 06:21 IMPRESSION: Interval development of a right-sided parapneumonic effusion with interval worsening of the airspace disease within the right mid to lower lung field. Chest CTA 12/13/24 16:32 IMPRESSION: No pulmonary embolus. No thoracic aortic dissection. Interval increase in the right-sided pleural effusion, now with adjacent c ompressive consolidation (with air bronchograms) for which pneumonia is suspected. Redemonstration of the pleural-based mass within the right middle lobe, which enhances with intravenous contrast. Redemonstration of panlobular emphysematous disease, without effusion or infiltrate in the left hemithorax. Labs Labs: Laboratory Results - last 24 hr 12/13/24 12/13/24 12/13/24 11:48 16:55 20:17 WBC RBC Hgb Hct MCV MCH MCHC RDW Plt Count MPV Immature Gran % (Auto) Neut % (Auto) Lymph % (Auto) [place] % (Auto) Eos % (Auto) Baso % (Auto) Lymph # (Auto) [place] # (Auto) Eos # (Auto) Baso # (Auto) Abs Immat Gran (auto) Absolute Neuts (auto) Absolute Nucleated RBC Band Neutrophils % Nucleated RBC % Platelet Estimate Anisocytosis Schistocytes Sodium Potassium Chloride Carbon Dioxide Anion Gap BUN Creatinine Estim Creat Clear Calc Estimated GFR Glucose POC Capillary Glucose 132 H 358 H 297 H Calcium Magnesium Total Bilirubin AST ALT Alkaline Phosphatase Total Protein Albumin 12/14/24 12/14/24 04:27 07:38 WBC 7.4 RBC 3.91 L Hgb 9.6 L Hct 32.8 L MCV 83.9 MCH 24.6 L MCHC 29.3 L RDW 18.1 H Plt Count 448 H MPV 8.9 Immature Gran % (Auto) 0.5 Neut % (Auto) 92.6 H Lymph % (Auto) 4.4 L [place] % (Auto) 2.4 L Eos % (Auto) 0.0 Baso % (Auto) 0.1 L Lymph # (Auto) 0.33 L [place] # (Auto) 0.2 Eos # (Auto) 0.0 Baso # (Auto) 0.0 Abs Immat Gran (auto) 0.04 H Absolute Neuts (auto) 6.9 H Absolute Nucleated RBC 0.000 Band Neutrophils % Not Reportable Nucleated RBC % 0.0 Platelet Estimate Adequate Anisocytosis 1+ Schistocytes Rare Sodium 138 Potassium 3.8 Chloride 100 Carbon Dioxide 36 H Anion Gap 2 L BUN 12 D Creatinine 0.57 L Estim Creat Clear Calc 67 Estimated GFR > 60 Glucose 239 H POC Capillary Glucose 144 H Calcium 9.6 Magnesium 1.8 Total Bilirubin 0.1 L AST 21 ALT 19 Alkaline Phosphatase 108 Total Protein 6.0 L Albumin 3.1 L
[2024-12-14 10:18] LABS: Prothrombin Time 13.5 Seconds (11.1-14.7)
[2024-12-14 11:38] LABS: Glucose Point of Care 111 mg/dl (65-105)
--- NOTE | 2024-12-14 11:50 | PCPTNOTE ---
The patient treatment was not able to be completed on 12/14/2024 this morning due to patient leaving room for procedure. Will plan to continue treatment per plan of care.
[2024-12-14 12:31] LABS: pH Pleural Fluid > 7.500 (7.210-7.500)
[2024-12-14 13:05] LABS: Appearance Pleural Fluid Cloudy (Clear); Color Pleural Fluid Yellow (Colorless); Lymphocytes Pleural Fluid 38 %; Neutrophils Pleural Fluid 24 % (0-25); Nucleated Cell Pleural Fluid 3000 /uL (0-1000); Pleural fluid source Pleural fluid; RBC Pleural Fluid 3099 /uL (0-10000)
[2024-12-14 13:06] LABS: Macrophages Pleural Fluid 38 %
[2024-12-14] MEDS: ALPRAZolam (*CRX) 0.5 MG TABLET PO ×2 (15:00→20:53)
--- NOTE | 2024-12-14 15:06 | PCRCNOTE ---
Pt will not let therapist titrate oxygen. Pt states she has been on home oxygen at 3L for years . Pts saturation on 3L 100%
[2024-12-14 16:28] LABS: Glucose Point of Care 140 mg/dl (65-105)
[2024-12-14] MEDS: HYDROcodone/acetaminophen (*CRX) 5-325 MG TABLET 1 TAB PO (17:22)
[2024-12-14 21:03] LABS: Glucose Point of Care 157 mg/dl (65-105)
[2024-12-15] VITALS (17 sets, daily range): BP systolic 112–160; BP diastolic 43–71; PULSE 51–98; RESP 16–20; TEMP 35.6–36.6; O2SAT 98–100
--- NOTE | 2024-12-15 05:06 | PCRCNOTE ---
Patient refused both 1999 and 199 updraft treatments due to wanting to remain asleep. Treatment to resume at 0800.
[2024-12-15 06:15] LABS: Basophils Absolute Auto 0.1 K/mm3 (0.0-0.1); Basophils Percent Auto 0.6 % (0.2-1.2); Eosinophils Absolute Auto 0.2 K/mm3 (0-0.3); Eosinophils Percent Auto 2.7 % (0-4.4); Hematocrit 34.8 % (37.0-47.0); Immature Granulocyte Absolute 0.05 K/mm3 (0.00-0.031); Immature Granulocyte Percent A 0.6 % (0-0.5); Lymphocytes Absolute Auto 1.19 K/mm3 (0.9-3.2); Lymphocytes Percent Auto 13.4 % (18.3-44.2); Mean Corpuscular HGB Conc 28.7 g/dl (32-36); Mean Corpuscular Hemoglobin 24.3 pg (26-34); Mean Corpuscular Volume 84.5 fl (80-100); Mean Platelet Volume 8.7 fl (7.4-10.4); Monocytes Absolute Auto 0.6 K/mm3 (0.1-0.6); Monocytes Percent Auto 6.7 % (2.6-8.5); Neutrophils Absolute Auto 6.8 K/mm3 (1.3-6.7); Platelet Count Result 456 k/mm3 (150-375); Red Blood Count 4.12 M/mm3 (4.2-5.4); Red Cell Distribution Width 18.4 % (11.5-14.5); White Blood Count 8.9 K/mm3 (4.5-10.0)
[2024-12-15 06:27] LABS: Alanine Aminotransferase 18 U/L (6-35); Albumin Level 3.1 g/dL (3.5-5.1); Alkaline Phosphatase 88 U/L (38-126); Anion Gap 4 mmol/L (4-12); Aspartate Amino Transferase 25 U/L (14-36); Bilirubin,Total 0.3 mg/dL (0.2-1.3); Blood Urea Nitrogen 12 mg/dL (7-17); Calcium 9.3 mg/dL (8.4-10.2); Carbon Dioxide 36 mmol/L (22-30); Chloride 100 mmol/L (98-107); Estimated CRCL calculation 88 ml/min; Estimated Glomerular Filt Rate > 60; Glucose 110 mg/dL (65-110); Potassium 3.3 mmol/L (3.4-5.0); Sodium 140 mmol/L (137-145)
[2024-12-15] MEDS: ALPRAZolam (*CRX) 0.5 MG TABLET PO ×2 (06:48→21:13)
[2024-12-15] MEDS: PANTOPRAZOLE 40 MG TABLET PO (06:48)
[2024-12-15] MEDS: METOPROLOL TARTRATE 25 MG TABLET PO ×2 (06:48→21:12)
[2024-12-15] MEDS: SALINE LOCK FLUSH 10 ML IV PUSH ×3 (06:48→21:14)
[2024-12-15] MEDS: HYDROcodone/acetaminophen (*CRX) 5-325 MG TABLET 1 TAB PO ×3 (06:48→23:43)
[2024-12-15 07:16] LABS: Anisocytosis 1+; Hypochromasia 1+; Platelet Estimate Increased (Adequate)
[2024-12-15 07:17] LABS: Schistocytes None Seen; Target Cells 1+
[2024-12-15] MEDS: IPRATROPIUM 0.5 MG/ALBUTEROL SULFATE 2.5 MG AMPUL.NEB 3 ML INHALATION ×3 (07:53→20:16)
[2024-12-15 07:55] LABS: Glucose Point of Care 104 mg/dl (65-105)
[2024-12-15] MEDS: FERROUS SULFATE DRIED 142 MG TABCR PO (09:40)
[2024-12-15] MEDS: AZITHROMYCIN 250 MG TABLET 500 MG PO (09:40)
[2024-12-15] MEDS: guaiFENesin 12 HR 600 MG TABCR 1200 MG PO ×2 (09:41→21:12)
--- NOTE | 2024-12-15 09:56 | P.PNIM_ITS ---
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 Qualified Code(s): D50.0 - Iron deficiency anemia secondary to blood loss (chronic) Code(s): D64.9 - Anemia, unspecified Status: Chronic (3) COPD (chronic obstructive pulmonary disease): Qualifiers: COPD type: unspecified COPD Qualified Code(s): J44.9 - Chronic obstructive pulmonary disease, unspecified Code(s): J44.9 - Chronic obstructive pulmonary disease, unspecified Status: Acute (4) Emphysema lung: Code(s): J43.9 - Emphysema, unspecified Status: Acute (5) Chronic respiratory failure with hypoxia, on home oxygen therapy: Code(s): J96.11 - Chronic respiratory failure with hypoxia; Z99.81 - Dependence on supplemental oxygen Status: Chronic Plan Lung mass and Pneumonia: Qualifiers: Laterality: bilateral Lung location: unspecified part of lung Pneumonia type: due to unspecified organism Qualified Code(s): J18.9 - Pneumonia, unspecified organism Code(s): J18.9 - Pneumonia, unspecified organism Chest CT showed emphysema disease with concerns for a pleural based mass Legionella negative. Urine Pneumococcal negative Mycoplasma negative. Thoracentesis was performed 12/15, cloudy yellow fluid drained out, fluid nucleated cell above 3000, neutrophil 24% possible empyema. [employer] recommend continue current treatment regimen GI bleeding Fecal occult blood test positive: Code(s): R19.5 - Other fecal abnormalities Status: Acute Assessment and Plan: EGD negative for any acute findings other than gastritis. GI recommend colonoscopy in outpatient office Sepsis: Qualifiers: Sepsis type: sepsis due to unspecified organism Sepsis acute organ dysfunction status: unspecified Qualified Code(s): A41.9 - Sepsis, unspecified organism Code(s): A41.9 - Sepsis, unspecified organism Status: Resolved Acute kidney injury: Code(s): N17.9 - Acute kidney failure, unspecified Status: Resolved Assessment and Plan: Now resolved. Hyperglycemia: Code(s): R73.9 - Hyperglycemia, unspecified Status: Acute Assessment and Plan: Continue SSI Continue Hypoglycemic protocol Change diet to Diabetic diet. Hypokalemia: Code(s): E87.6 - Hypokalemia Status: Acute Assessment and Plan: 12/13/24: * Potassium this AM is 3.0. 40 mEq po given and will continue to trend. Chronic obstructive pulmonary disease: Code(s): J44.9 - Chronic obstructive pulmonary disease, unspecified Status: Chronic Assessment and Plan: * Appreciate continued management per Pulmonology. * Continue above mentioned measures including monitoring, oxygen, nebs Chronic respiratory failure with hypoxia, on home oxygen therapy: Code(s): J96.11 - Chronic respiratory failure with hypoxia; Z99.81 - Dependence on supplemental oxygen Status: Chronic Assessment and Plan: * See #7 * Anemia: Qualifiers: Anemia type: iron deficiency Iron deficiency anemia type: chronic blood loss Qualified Code(s): D50.0 - Iron deficiency anemia secondary to blood loss (chronic) Code(s): D64.9 - Anemia, unspecified Status: Chronic Assessment and Plan: Hemoglobin stable, continue supplemental Iron. Hypertension: Code(s): I10 - Essential (primary) hypertension Status: Acute Assessment and Plan: Continue Lisinopril and Metoprolol Subjective Date/time seen: 12/15/24 09:56 Interval history: I saw exam patient today, patient still has right chest wall, worse with a deep breath and cough. Chest pain is getting better.. Patient denies abdomen pain, nausea vomiting. Patient is afebrile, blood pressure stable, pulse ox 99 on 3 L oxygen. Labs reviewed Thoracentesis was performed yesterday, cloudy yellow fluid drained out, fluid nucleated cell above 3000, neutrophil 24% Exam Narrative: GENERAL: Pleasant, in no acute distress. Well-nourished. - EYES: EOMI. Anicteric. - HENT: Moist mucous membranes. - LUNGS: Diminished throughout with so me crackles noted RLL. - CARDIOVASCULAR: Regular rate and rhyth m. No murmur. No JVD. - ABDOMEN: Soft, non-tender and non-dist ended. No palpable masses. - EXTREMITIES: No edema. Peripheral puls es 2+. Non-tender. - NEUROLOGIC: No focal neurological defi cits. CN II-XII grossly intact. - PSYCHIATRIC: Awake, Alert and oriented x 3. Appropriate mood and affect. - SKIN: No rashes or lesions. Warm. - LYMPH: No cervical lymphadenopathy. Objective Data Vital Signs Vital Signs: Vital Signs - 24 hr 12/14/24 14:27 12/14/24 14:35 12/14/24 14:35 Temperature 97.9 F Pulse Rate 75 78 Respiratory Rate 18 20 Blood Pressure 191/75 H Pulse Oximetry 100 100 Oxygen Delivery Nasal Cannula Oxygen Flow Rate 3 Fraction of Inspired Oxygen 12/14/24 14:48 12/14/24 20:00 12/14/24 20:53 Temperature Pulse Rate 76 98 88 Respiratory Rate 20 22 H Blood Pressure Pulse Oximetry 99 Oxygen Delivery Nasal Cannula Oxygen Flow Rate 3 Fraction of Inspired Oxygen 32 12/14/24 21:30 12/15/24 04:00 12/15/24 06:21 Temperature 97.5 F L 97.9 F Pulse Rate 98 98 66 Respiratory Rate 22 H 18 Blood Pressure 139/67 129/61 Pulse Oximetry 99 100 Oxygen Delivery Oxygen Flow Rate Fraction of Inspired Oxygen 12/15/24 06:48 12/15/24 07:53 12/15/24 07:53 Temperature Pulse Rate 66 53 L Respiratory Rate 20 Blood Pressure Pulse Oximetry 100 Oxygen Delivery Nasal Cannula Oxygen Flow Rate 3 Fraction of Inspired Oxygen 12/15/24 08:02 12/15/24 08:20 Temperature 96.1 F L Pulse Rate 51 L 53 L Respiratory Rate 18 18 Blood Pressure 112/43 L Pulse Oximetry 100 Oxygen Delivery Oxygen Flow Rate Fraction of Inspired Oxygen Intake/Output Intake/Output: Intake & Output 12/12/24 12/13/24 12/14/24 12/15/24 23:59 23:59 23:59 23:59 Intake Total 3764 913 7831 100 Output Total 500 Balance 1525 390 980 100 Meds/Results Medications: Active Medications Generic Name Dose Route Start Last Admin Trade Name Freq PRN Reason Stop Dose Admin Acetaminophen 650 mg 12/09/24 18:53 12/12/24 22:15 Acetaminophen 325 Mg Tablet PO 650 mg Q4H PRN Administration Mild Pain (1-3) or Fever Hydrocodone Bitart/Acetaminophen 1 tab 12/14/24 11:35 12/15/24 06:48 Hydrocodone/Acetaminophen (*Crx) 5-325 Mg Tablet PO 1 tab Q6H PRN Administration Pain Rated 4-6 Albuterol/Ipratropium 3 ml 12/10/24 08:00 12/15/24 07:53 Ipratropium 0.5 Mg/Albuterol Sulfate 2.5 Mg Ampul.Neb 3 Ml INHALATION 3 ml Q6HRT MINGO Administration Alprazolam 0.5 mg 12/14/24 11:37 12/15/24 06:48 Alprazolam (*Crx) 0.5 Mg Tablet PO 0.5 mg TID PRN Administration Anxiety Azithromycin 500 mg 12/14/24 09:00 12/15/24 09:40 Azithromycin 250 Mg Tablet PO 500 mg DAILY MINGO Administration Dextrose 12.5 gm 12/10/24 03:00 Dextrose 50% 25 Gm/50 Ml Syringe IV PUSH PRN PRN Hypoglycemia Protocol Ferrous Sulfate 142 mg 12/10/24 08:00 12/15/24 09:40 Ferrous Sulfate Dried 142 Mg Tabcr PO 142 mg DAILY@0800 MINGO Administration Fluticasone Propionate 1 spray 12/10/24 09:00 12/14/24 19:33 Fluticasone Propionate 0.05% Na Spr 16 Gm Btl (*Bkc) NASAL Not Given BID MINGO Glucagon 1 mg 12/10/24 03:00 Glucagon For Inj 1 Mg Vial IM PRN PRN Hypoglycemia Protocol Glucose 15 gm 12/10/24 03:00 Glucose Oral Gel 15 Gm Of Glucse In 37.5 Gm Tube PO PRN PRN Hypoglycemia Protocol Guaifenesin 1,200 mg 12/10/24 09:00 12/15/24 09:41 Guaifenesin 12 Hr 600 Mg Tabcr PO 1,200 mg Q12HR MINGO Administration Hydralazine HCl 10 mg 12/13/24 15:23 Hydralazine Hcl 20 Mg/Ml Vial IV PUSH Q8H PRN Blood Pressure - High Dextrose 1,000 mls @ 100 mls/hr 12/10/24 03:00 Dextrose 5% 1,000 Ml IVPB PRN PRN Hypoglycemia Protocol Ceftriaxone Sodium 1 gm in 50 mls @ 100 mls/hr 12/10/24 11:55 12/14/24 21:23 Rocephin 1 Gm/Ns 50 Ml IVPB Infused Q12HR MINGO Infusion Insulin Aspart 2 - 5 units 12/10/24 08:00 12/14/24 19:32 Insulin Aspart (*Bkc) 100 Units/Ml SUB-Q Not Given TIDWM [facility] Protocol Insulin Aspart 1 - 2 units 12/10/24 21:00 12/14/24 20:54 Insulin Aspart (*Bkc) 100 Units/Ml SUB-Q Not Given HS [facility] Protocol Lisinopril 5 mg 12/10/24 14:05 12/14/24 08:18 Lisinopril 5 Mg Tablet PO 5 mg QAM MINGO Administration Metoprolol Tartrate 25 mg 12/12/24 21:00 12/15/24 06:48 Metoprolol Tartrate 25 Mg Tablet PO 25 mg 07,21 M[facility]O Administration Ondansetron HCl 4 mg 12/09/24 18:53 12/11/24 19:06 Ondansetron Inj 4 Mg/2 Ml Vial IV PUSH 4 mg Q4H PRN Administration Nausea Oxycodone HCl 5 mg 12/10/24 10:48 12/14/24 10:26 Oxycodone Hcl (*Crx) 5 Mg Tab Ir PO 5 mg Q4H PRN Administration Pain Rated 7-10 Pantoprazole Sodium 40 mg 12/13/24 07:00 12/15/24 06:48 Pantoprazole 40 Mg Tablet PO 40 mg 0700 MINGO Administration Sodium Chloride 10 ml 12/13/24 22:00 12/15/24 06:48 Saline Lock Flush IV PUSH 10 ml Q8HR MINGO Administration Sodium Chloride 10 ml 12/13/24 15:20 Saline Lock Flush IV PUSH PRN PRN Flush Sodium Chloride 20 ml 12/13/24 15:20 Saline Lock Flush IV PUSH PRN PRN after blood draws Radiology Results: ITS Impressions Chest/Abdomen/Pelvis CT 12/09/24 17:27 IMPRESSION: Panlobular emphysematous disease. Findings within the right mid to lower lung field for which a pleural-based mass is suspected. Small right-sided pleural effusion is also noted. No acute pathology within the abdomen or pelvis. Abdomen Ultrasound 12/09/24 18:06 IMPRESSION: Limited evaluation of pancreas secondary to overlying bowel gas. No evidence of cholecystitis or cholelithiasis, consistent with recent CT examination, performed on the same day. Pulmonary Perfusion Imaging 12/10/24 15:37 IMPRESSION: 1. Intermediate probability for pulmonary embolism. 2. Small bilateral pleural effusions, right greater than left 3. Diffuse bilateral decreased washout of activity on the ventilation images consistent with obstructive pulmonary disease. Venous Doppler Study 12/11/24 08:13 IMPRESSION: Negative bilateral lower extremity venous US. No deep vein thrombosis. Chest CTA 12/13/24 16:32 IMPRESSION: No pulmonary embolus. No thoracic aortic dissection. Interval increase in the right-sided pleural effusion, now with adjacent compressive consolidation (with air bronchograms) for which pneumonia is suspected. Redemonstration of the pleural-based mass within the right middle lobe, which enhances with intravenous contrast. Redemonstration of panlobular emphysematous disease, without effusion or infiltrate in the left hemithorax. Chest X-Ray 12/14/24 12:22 IMPRESSION: Bilateral pneumonia. Underlying fibrotic/emphysematous changes Thoracentesis Ultrasound 12/14/24 12:34 IMPRESSION: 1. Successful ultrasound-guided thoracentesis yielding 500 mL of yellow fluid. Labs Labs: Laboratory Results - last 24 hr 12/14/24 12/14/24 12/14/24 09:54 11:34 11:52 WBC RBC Hgb Hct MCV MCH MCHC RDW Plt Count MPV Immature Gran % (Auto) Neut % (Auto) Lymph % (Auto) [place] % (Auto) Eos % (Auto) Baso % (Auto) Lymph # (Auto) [place] # (Auto) Eos # (Auto) Baso # (Auto) Abs Immat Gran (auto) Absolute Neuts (auto) Absolute Nucleated RBC Band Neutrophils % Nucleated RBC % Platelet Estimate Hypochromasia Anisocytosis Target Cells Schistocytes PT 13.5 INR 1.0 APTT 29.0 Sodium Potassium Chloride Carbon Dioxide Anion Gap BUN Creatinine Estim Creat Clear Calc Estimated GFR Glucose POC Capillary Glucose 111 H Calcium Magnesium Total Bilirubin AST ALT Alkaline Phosphatase Total Protein Albumin Pleural Fluid Source Pleural fluid Pleural Color Yellow Pleural Appearance Cloudy Pleural pH > 7.500 H Pleural RBC 3099 Pleural Nuc Cells 3000 H Pleural Neutrophils 24 Pleural Lymphocytes 38 Pleural Macrophages 38 12/14/24 12/14/24 12/15/24 16:20 20:16 05:58 WBC 8.9 RBC 4.12 L Hgb 10.0 L Hct 34.8 L MCV 84.5 MCH 24.3 L MCHC 28.7 L RDW 18.4 H Plt Count 456 H MPV 8.7 Immature Gran % (Auto) 0.6 H Neut % (Auto) 76.0 H Lymph % (Auto) 13.4 L [place] % (Auto) 6.7 Eos % (Auto) 2.7 Baso % (Auto) 0.6 Lymph # (Auto) 1.19 [place] # (Auto) 0.6 Eos # (Auto) 0.2 Baso # (Auto) 0.1 Abs Immat Gran (auto) 0.05 H Absolute Neuts (auto) 6.8 H Absolute Nucleated RBC 0.000 Band Neutrophils % Not Reportable Nucleated RBC % 0.0 Platelet Estimate Increased Hypochromasia 1+ Anisocytosis 1+ Target Cells 1+ Schistocytes None seen PT INR APTT Sodium 140 Potassium 3.3 L Chloride 100 Carbon Dioxide 36 H Anion Gap 4 BUN 12 Creatinine 0.42 L Estim Creat Clear Calc 88 Estimated GFR > 60 Glucose 110 POC Capillary Glucose 140 H 157 H Calcium 9.3 Magnesium 2.0 Total Bilirubin 0.3 AST 25 ALT 18 Alkaline Phosphatase 88 Total Protein 6.0 L Albumin 3.1 L Pleural Fluid Source Pleural Color Pleural Appearance Pleural pH Pleural RBC Pleural Nuc Cells Pleural Neutrophils Pleural Lymphocytes Pleural Macrophages 12/15/24 07:51 WBC RBC Hgb Hct MCV MCH MCHC RDW Plt Count MPV Immature Gran % (Auto) Neut % (Auto) Lymph % (Auto) [place] % (Auto) Eos % (Auto) Baso % (Auto) Lymph # (Auto) [place] # (Auto) Eos # (Auto) Baso # (Auto) Abs Immat Gran (auto) Absolute Neuts (auto) Absolute Nucleated RBC Band Neutrophils % Nucleated RBC % Platelet Estimate Hypochromasia Anisocytosis Target Cells Schistocytes PT INR APTT Sodium Potassium Chloride Carbon Dioxide Anion Gap BUN Creatinine Estim Creat Clear Calc Estimated GFR Glucose POC Capillary Glucose 104 Calcium Magnesium Total Bilirubin AST ALT Alkaline Phosphatase Total Protein Albumin Pleural Fluid Source Pleural Color Pleural Appearance Pleural pH Pleural RBC Pleural Nuc Cells Pleural Neutrophils Pleural Lymphocytes Pleural Macrophages
--- NOTE | 2024-12-15 10:40 | PM.PNPUL ---
Progress Note: A&P Assessment and Plan (1) Emphysema lung: Code(s): J43.9 - Emphysema, unspecified Status: Acute (2) Pneumonia: Qualifiers: Laterality: bilateral Lung location: unspecified part of lung Pneumonia type: due to unspecified organism Qualified Code(s): J18.9 - Pneumonia, unspecified organism Code(s): J18.9 - Pneumonia, unspecified organism Status: Acute Assessment and Plan: This 69-year-old female with a history of COPD and chronic hypoxemic respiratory failure on supplemental oxygen presented with right pleuritic chest pain, leukocytosis, and new lung infiltrates/consolidation in the right subpleural area. Her presentation, along with diagnostic studies, suggests community-acquired pneumonia, given her positive response to antibiotics and declining white blood cell count. The patient continues to experience right pleuritic chest pain, necessitating the use of opiates for improved pain management. WBC is back into the normal range although the patient continues to have a right pleuritic chest pain related to peripheral location of pneumonia. New chest x-ray showed in addition to previous infiltrate new pleural effusion on right likely loculated. Urine antigen negative for community-acquired pneumonia. The patient underwent a CT Pulmonary Angiography (CT PA), which revealed a moderate increase in left pleural effusion compared to a previous study. Additionally, there was a persistent pleural-based mass within the right middle lobe, which showed enhancement with intravenous contrast. This latter finding raises concerns about a potential malignancy, especially since the right pleuritic chest pain persists despite treatment for community-acquired pneumonia, normalization of the white cell count, and improvement in cough and sputum production. This suggests that the symptoms may not be solely due to pneumonia, but could be related to a possible malignancy. She underwent thoracentesis with removal of clear yellow fluid. Fluid pH not consistent with empyema. Also cell count not consistent with complicated parapneumonic effusion. Complete pleural fluid a data pending. Pleural fluid cytology also pending Plan: Continue with current regimen out of bed to chair. Await cytology report. Anticipate discharge in a day or so. (3) Chronic obstructive pulmonary disease: Code(s): J44.9 - Chronic obstructive pulmonary disease, unspecified Status: Chronic (4) Chronic respiratory failure with hypoxia, on home oxygen therapy: Code(s): J96.11 - Chronic respiratory failure with hypoxia; Z99.81 - Dependence on supplemental oxygen Status: Chronic Subjective Date/time seen: 12/15/24 10:40 Interval history: Patient stated that she is doing better. Right pleuritic chest pain significantly improved especially after thoracentesis. She has no fever chills. Exam Narrative: GENERAL APPEARANCE: Well developed, well nourished, alert and cooperative, and appears to be in no acute distress SKIN: Inspection of the skin reveals no rashes, ulcerations or petechiae. HEENT: Sclerae anicteric and conjunctivae pink and moist. Extraocular movements were intact and pupils were equal, round, and reactive to light. The oral mucosa, hard and soft palate, tongue and posterior pharynx were normal. NECK: Supple. There was no thyroid enlargement, and no tenderness, or masses were felt. CHEST: Normal AP diameter and normal contour without any kyphoscoliosis. LUNGS: Distant breath sounds few crackles right lung base posteriorly no wheezing CARDIAC: There was a regular rate and rhythm without any murmurs, gallops, rubs. ABDOMEN: Soft and nontender with normal bowel sounds. There was no organomegaly. LYMPH NODES: No lymphadenopathy was appreciated in the neck. EXTREMITIES: No cyanosis, clubbing or edema. NEUROLOGIC: Alert and oriented x 3. Normal affect. Objective Data Vital Signs Vital Signs: Vital Signs - 24 hr 12/14/24 14:27 12/14/24 14:35 12/14/24 14:35 Temperature 36.6 C Pulse Rate 75 78 Respiratory Rate 18 20 Blood Pressure 191/75 H Pulse Oximetry 100 100 Oxygen Delivery Nasal Cannula Oxygen Flow Rate 3 Fraction of Inspired Oxygen 12/14/24 14:48 12/14/24 20:00 12/14/24 20:53 Temperature Pulse Rate 76 98 88 Respiratory Rate 20 22 H Blood Pressure Pulse Oximetry 99 Oxygen Delivery Nasal Cannula Oxygen Flow Rate 3 Fraction of Inspired Oxygen 32 12/14/24 21:30 12/15/24 04:00 12/15/24 06:21 Temperature 36.4 C L 36.6 C Pulse Rate 98 98 66 Respiratory Rate 22 H 18 Blood Pressure 139/67 129/61 Pulse Oximetry 99 100 Oxygen Delivery Oxygen Flow Rate Fraction of Inspired Oxygen 12/15/24 06:48 12/15/24 07:53 12/15/24 07:53 Temperature Pulse Rate 66 53 L Respiratory Rate 20 Blood Pressure Pulse Oximetry 100 Oxygen Delivery Nasal Cannula Oxygen Flow Rate 3 Fraction of Inspired Oxygen 12/15/24 08:02 12/15/24 08:20 Temperature 35.6 C L Pulse Rate 51 L 53 L Respiratory Rate 18 18 Blood Pressure 112/43 L Pulse Oximetry 100 Oxygen Delivery Oxygen Flow Rate Fraction of Inspired Oxygen Intake/Output Intake/Output: Intake & Output 12/12/24 12/13/24 12/14/24 12/15/24 23:59 23:59 23:59 23:59 Intake Total 5117 480 7959 100 Output Total 500 Balance 1525 390 980 100 Meds/Results Medications: Active Medications Generic Name Dose Route Start Last Admin Trade Name Freq PRN Reason Stop Dose Admin Acetaminophen 650 mg 12/09/24 18:53 12/12/24 22:15 Acetaminophen 325 Mg Tablet PO 650 mg Q4H PRN Administration Mild Pain (1-3) or Fever Hydrocodone Bitart/Acetaminophen 1 tab 12/14/24 11:35 12/15/24 06:48 Hydrocodone/Acetaminophen (*Crx) 5-325 Mg Tablet PO 1 tab Q6H PRN Administration Pain Rated 4-6 Albuterol/Ipratropium 3 ml 12/10/24 08:00 12/15/24 07:53 Ipratropium 0.5 Mg/Albuterol Sulfate 2.5 Mg Ampul.Neb 3 Ml INHALATION 3 ml Q6HRT MINGO Administration Alprazolam 0.5 mg 12/14/24 11:37 12/15/24 06:48 Alprazolam (*Crx) 0.5 Mg Tablet PO 0.5 mg TID PRN Administration Anxiety Azithromycin 500 mg 12/14/24 09:00 12/15/24 09:40 Azithromycin 250 Mg Tablet PO 500 mg DAILY MINGO Administration Dextrose 12.5 gm 12/10/24 03:00 Dextrose 50% 25 Gm/50 Ml Syringe IV PUSH PRN PRN Hypoglycemia Protocol Ferrous Sulfate 142 mg 12/10/24 08:00 12/15/24 09:40 Ferrous Sulfate Dried 142 Mg Tabcr PO 142 mg DAILY@0800 MINGO Administration Fluticasone Propionate 1 spray 12/10/24 09:00 12/15/24 10:32 Fluticasone Propionate 0.05% Na Spr 16 Gm Btl (*Bkc) NASAL Not Given BID MINGO Glucagon 1 mg 12/10/24 03:00 Glucagon For Inj 1 Mg Vial IM PRN PRN Hypoglycemia Protocol Glucose 15 gm 12/10/24 03:00 Glucose Oral Gel 15 Gm Of Glucse In 37.5 Gm Tube PO PRN PRN Hypoglycemia Protocol Guaifenesin 1,200 mg 12/10/24 09:00 12/15/24 09:41 Guaifenesin 12 Hr 600 Mg Tabcr PO 1,200 mg Q12HR MINGO Administration Hydralazine HCl 10 mg 12/13/24 15:23 Hydralazine Hcl 20 Mg/Ml Vial IV PUSH Q8H PRN Blood Pressure - High Dextrose 1,000 mls @ 100 mls/hr 12/10/24 03:00 Dextrose 5% 1,000 Ml IVPB PRN PRN Hypoglycemia Protocol Ceftriaxone Sodium 1 gm in 50 mls @ 100 mls/hr 12/10/24 11:55 12/14/24 21:23 Rocephin 1 Gm/Ns 50 Ml IVPB Infused Q12HR MINGO Infusion Insulin Aspart 2 - 5 units 12/10/24 08:00 12/15/24 10:32 Insulin Aspart (*Bkc) 100 Units/Ml SUB-Q Not Given TIDWM [facility] Protocol Insulin Aspart 1 - 2 units 12/10/24 21:00 12/14/24 20:54 Insulin Aspart (*Bkc) 100 Units/Ml SUB-Q Not Given HS [facility] Protocol Lisinopril 5 mg 12/10/24 14:05 12/15/24 10:32 Lisinopril 5 Mg Tablet PO Not Given QAM [facility] Metoprolol Tartrate 25 mg 12/12/24 21:00 12/15/24 06:48 Metoprolol Tartrate 25 Mg Tablet PO 25 mg 07,21 MINGO Administration Ondansetron HCl 4 mg 12/09/24 18:53 12/11/24 19:06 Ondansetron Inj 4 Mg/2 Ml Vial IV PUSH 4 mg Q4H PRN Administration Nausea Oxycodone HCl 5 mg 12/10/24 10:48 12/14/24 10:26 Oxycodone Hcl (*Crx) 5 Mg Tab Ir PO 5 mg Q4H PRN Administration Pain Rated 7-10 Pantoprazole Sodium 40 mg 12/13/24 07:00 12/15/24 06:48 Pantoprazole 40 Mg Tablet PO 40 mg 0700 MINGO Administration Sodium Chloride 10 ml 12/13/24 22:00 12/15/24 06:48 Saline Lock Flush IV PUSH 10 ml Q8HR MINGO Administration Sodium Chloride 10 ml 12/13/24 15:20 Saline Lock Flush IV PUSH PRN PRN Flush Sodium Chloride 20 ml 12/13/24 15:20 Saline Lock Flush IV PUSH PRN PRN after blood draws Radiology Results: ITS Impressions Chest/Abdomen/Pelvis CT 12/09/24 17:27 IMPRESSION: Panlobular emphysematous disease. Findings within the right mid to lower lung field for which a pleural-based mass is suspected. Small right-sided pleural effusion is also noted. No acute pathology within the abdomen or pelvis. Abdomen Ultrasound 12/09/24 18:06 IMPRESSION: Limited evaluation of pancreas secondary to overlying bowel gas. No evidence of cholecystitis or cholelithiasis, consistent with recent CT examination, performed on the same day. Pulmonary Perfusion Imaging 12/10/24 15:37 IMPRESSION: 1. Intermediate probability for pulmonary embolism. 2. Small bilateral pleural effusions, right greater than left 3. Diffuse bilateral decreased washout of activity on the ventilation images consistent with obstructive pulmonary disease. Venous Doppler Study 12/11/24 08:13 IMPRESSION: Negative bilateral lower extremity venous US. No deep vein thrombosis. Chest CTA 12/13/24 16:32 IMPRESSION: No pulmonary embolus. No thoracic aortic dissection. Interval increase in the right-sided pleural effusion, now with adjacent compressive consolidation (with air bronchograms) for which pneumonia is suspected. Redemonstration of the pleural-based mass within the right middle lobe, which enhances with intravenous contrast. Redemonstration of panlobular emphysematous disease, without effusion or infiltrate in the left hemithorax. Chest X-Ray 12/14/24 12:22 IMPRESSION: Bilateral pneumonia. Underlying fibrotic/emphysematous changes Thoracentesis Ultrasound 12/14/24 12:34 IMPRESSION: 1. Successful ultrasound-guided thoracentesis yielding 500 mL of yellow fluid. Labs Labs: Laboratory Results - last 24 hr 12/14/24 12/14/24 12/14/24 11:34 11:52 16:20 WBC RBC Hgb Hct MCV MCH MCHC RDW Plt Count MPV Immature Gran % (Auto) Neut % (Auto) Lymph % (Auto) [place] % (Auto) Eos % (Auto) Baso % (Auto) Lymph # (Auto) [place] # (Auto) Eos # (Auto) Baso # (Auto) Abs Immat Gran (auto) Absolute Neuts (auto) Absolute Nucleated RBC Band Neutrophils % Nucleated RBC % Platelet Estimate Hypochromasia Anisocytosis Target Cells Schistocytes Sodium Potassium Chloride Carbon Dioxide Anion Gap BUN Creatinine Estim Creat Clear Calc Estimated GFR Glucose POC Capillary Glucose 111 H 140 H Calcium Magnesium Total Bilirubin AST ALT Alkaline Phosphatase Total Protein Albumin Pleural Fluid Source Pleural fluid Pleural Color Yellow Pleural Appearance Cloudy Pleural pH > 7.500 H Pleural RBC 3099 Pleural Nuc Cells 3000 H Pleural Neutrophils 24 Pleural Lymphocytes 38 Pleural Macrophages 38 12/14/24 12/15/24 12/15/24 20:16 05:58 07:51 WBC 8.9 RBC 4.12 L Hgb 10.0 L Hct 34.8 L MCV 84.5 MCH 24.3 L MCHC 28.7 L RDW 18.4 H Plt Count 456 H MPV 8.7 Immature Gran % (Auto) 0.6 H Neut % (Auto) 76.0 H Lymph % (Auto) 13.4 L [place] % (Auto) 6.7 Eos % (Auto) 2.7 Baso % (Auto) 0.6 Lymph # (Auto) 1.19 [place] # (Auto) 0.6 Eos # (Auto) 0.2 Baso # (Auto) 0.1 Abs Immat Gran (auto) 0.05 H Absolute Neuts (auto) 6.8 H Absolute Nucleated RBC 0.000 Band Neutrophils % Not Reportable Nucleated RBC % 0.0 Platelet Estimate Increased Hypochromasia 1+ Anisocytosis 1+ Target Cells 1+ Schistocytes None seen Sodium 140 Potassium 3.3 L Chloride 100 Carbon Dioxide 36 H Anion Gap 4 BUN 12 Creatinine 0.42 L Estim Creat Clear Calc 88 Estimated GFR > 60 Glucose 110 POC Capillary Glucose 157 H 104 Calcium 9.3 Magnesium 2.0 Total Bilirubin 0.3 AST 25 ALT 18 Alkaline Phosphatase 88 Total Protein 6.0 L Albumin 3.1 L Pleural Fluid Source Pleural Color Pleural Appearance Pleural pH Pleural RBC Pleural Nuc Cells Pleural Neutrophils Pleural Lymphocytes Pleural Macrophages
[2024-12-15 11:35] LABS: Glucose Point of Care 137 mg/dl (65-105)
[2024-12-16] VITALS (17 sets, daily range): BP systolic 149–188; BP diastolic 60–78; PULSE 59–89; RESP 16–24; TEMP 36.3–36.6; O2SAT 96–100
[2024-12-16] MEDS: IPRATROPIUM 0.5 MG/ALBUTEROL SULFATE 2.5 MG AMPUL.NEB 3 ML INHALATION ×4 (03:05→19:34)
[2024-12-16 05:56] LABS: Basophils Absolute Auto 0.1 K/mm3 (0.0-0.1); Basophils Percent Auto 0.9 % (0.2-1.2); Eosinophils Absolute Auto 0.3 K/mm3 (0-0.3); Eosinophils Percent Auto 4.6 % (0-4.4); Hemoglobin 9.6 g/dL (12.0-15.0); Immature Granulocyte Absolute 0.04 K/mm3 (0.00-0.031); Immature Granulocyte Percent A 0.5 % (0-0.5); Lymphocytes Absolute Auto 1.04 K/mm3 (0.9-3.2); Mean Corpuscular HGB Conc 27.4 g/dl (32-36); Mean Corpuscular Hemoglobin 23.7 pg (26-34); Mean Corpuscular Volume 86.4 fl (80-100); Mean Platelet Volume 8.6 fl (7.4-10.4); Monocytes Absolute Auto 0.5 K/mm3 (0.1-0.6); Monocytes Percent Auto 7.1 % (2.6-8.5); Neutrophils Absolute Auto 5.4 K/mm3 (1.3-6.7); Neutrophils Percent Auto 72.9 % (45.5-73.1); Platelet Count Result 425 k/mm3 (150-375); Red Blood Count 4.05 M/mm3 (4.2-5.4); White Blood Count 7.4 K/mm3 (4.5-10.0)
[2024-12-16] MEDS: METOPROLOL TARTRATE 25 MG TABLET PO ×2 (06:05→20:38)
[2024-12-16] MEDS: ALPRAZolam (*CRX) 0.5 MG TABLET PO ×2 (06:05→15:38)
[2024-12-16] MEDS: PANTOPRAZOLE 40 MG TABLET PO (06:05)
[2024-12-16] MEDS: SALINE LOCK FLUSH 10 ML IV PUSH ×3 (06:06→22:32)
[2024-12-16 06:12] LABS: Alanine Aminotransferase 15 U/L (6-35); Albumin Level 2.8 g/dL (3.5-5.1); Alkaline Phosphatase 74 U/L (38-126); Anion Gap 3 mmol/L (4-12); Aspartate Amino Transferase 19 U/L (14-36); Bilirubin,Total 0.2 mg/dL (0.2-1.3); Blood Urea Nitrogen 15 mg/dL (7-17); Carbon Dioxide 37 mmol/L (22-30); Chloride 100 mmol/L (98-107); Estimated CRCL calculation 81 ml/min; Estimated Glomerular Filt Rate > 60; Glucose 107 mg/dL (65-110); Potassium 3.5 mmol/L (3.4-5.0); Sodium 140 mmol/L (137-145)
[2024-12-16] MEDS: HYDROcodone/acetaminophen (*CRX) 5-325 MG TABLET 1 TAB PO ×3 (08:44→20:37)
[2024-12-16] MEDS: FERROUS SULFATE DRIED 142 MG TABCR PO (09:03)
[2024-12-16] MEDS: AZITHROMYCIN 250 MG TABLET 500 MG PO (09:04)
[2024-12-16] MEDS: lisinopriL 5 MG TABLET PO (09:05)
[2024-12-16] MEDS: guaiFENesin 12 HR 600 MG TABCR 1200 MG PO ×2 (09:06→20:38)
[2024-12-16] MEDS: FLUTICASONE PROPIONATE 0.05% NA SPR 16 GM BTL (*BKC) 1 SPRAY NASAL ×2 (11:45→17:22)
--- NOTE | 2024-12-16 15:17 | P.PNPL_ITS ---
Progress Note: A&P Assessment and Plan (1) Emphysema lung: Code(s): J43.9 - Emphysema, unspecified Status: Acute (2) Pneumonia: Qualifiers: Laterality: bilateral Lung location: unspecified part of lung Pneumonia type: due to unspecified organism Qualified Code(s): J18.9 - Pneumonia, unspecified organism Code(s): J18.9 - Pneumonia, unspecified organism Status: Acute Assessment and Plan: This 69-year-old female with a history of COPD and chronic hypoxemic respiratory failure on supplemental oxygen presented with right pleuritic chest pain, leukocytosis, and new lung infiltrates/consolidation in the right subpleural area. Her presentation, along with diagnostic studies, suggests community- acquired pneumonia, given her positive response to antibiotics and declining white blood cell count. The patient continues to experience right pleuritic chest pain, necessitating the use of opiates for improved pain management. WBC is back into the normal range although the patient continues to have a right pleuritic chest pain related to peripheral location of pneumonia. New chest x- ray showed in addition to previous infiltrate new pleural effusion on right likely loculated. Urine antigen negative for community-acquired pneumonia. The patient underwent a CT Pulmonary Angiography (CT PA), which revealed a moderate increase in left pleural effusion compared to a previous study. Additionally, there was a persistent pleural-based mass within the right middle lobe, which showed enhancement with intravenous contrast. This latter finding raises concerns about a potential malignancy, especially since the right pleuritic chest pain persists despite treatment for community-acquired pneumonia, normalization of the white cell count, and improvement in cough and sputum production. This suggests that the symptoms may not be solely due to pneumonia, but could be related to a possible malignancy. She underwent thoracentesis with removal of clear yellow fluid. Fluid pH not consistent with empyema. Also cell count not consistent with complicated parapneumonic effusion. Complete pleural fluid a data pending. Pleural fluid cytology showed adenocarcinoma, please refer to the pathology report Plan: Continue with current antibiotics for lower respiratory tract infection. Oncology consultation. Anticipate discharge home in a day or 2. (3) Chronic obstructive pulmonary disease: Code(s): J44.9 - Chronic obstructive pulmonary disease, unspecified Status: Chronic (4) Chronic respiratory failure with hypoxia, on home oxygen therapy: Code(s): J96.11 - Chronic respiratory failure with hypoxia; Z99.81 - Dependence on supplemental oxygen Status: Chronic Subjective Date/time seen: 12/16/24 15:17 Interval history: Patient continues to complain of right pleuritic chest pain still requiring pain medications. Otherwise her respiratory status has improved. She has no cough or sputum production no fever. Review of Systems Review of Systems: All systems reviewed & are unremarkable except as noted in HPI and below (HPI and below) Exam Narrative: GENERAL APPEARANCE: Well developed, well nourished, alert and cooperative, and appears to be in no acute distress SKIN: Inspection of the skin reveals no rashes, ulcerations or petechiae. HEENT: Sclerae anicteric and conjunctivae pink and moist. Extraocular movements were intact and pupils were equal, round, and reactive to light. The oral mucosa, hard and soft palate, tongue and posterior pharynx were normal. NECK: Supple. There was no thyroid enlargement, and no tenderness, or masses were felt. CHEST: Normal AP diameter and normal contour without any kyphoscoliosis. LUNGS: Distant breath sounds few crackles right lung base posteriorly no wheezing CARDIAC: There was a regular rate and rhythm without any murmurs, gallops, rubs. ABDOMEN: Soft and nontender with normal bowel sounds. There was no organomegaly. LYMPH NODES: No lymphadenopathy was appreciated in the neck. EXTREMITIES: No cyanosis, clubbing or edema. NEUROLOGIC: Alert and oriented x 3. Normal affect. Objective Data Vital Signs Vital Signs: Vital Signs - 24 hr 12/15/24 20:00 12/15/24 20:16 12/15/24 20:18 Temperature Pulse Rate 88 81 Respiratory Rate 16 16 Blood Pressure Pulse Oximetry 98 98 Oxygen Delivery Nasal Cannula Nasal Cannula Oxygen Flow Rate 3 3 Fraction of Inspired Oxygen 32 12/15/24 20:21 12/15/24 20:56 12/15/24 21:12 Temperature 36.6 C Pulse Rate 77 69 88 Respiratory Rate 16 16 Blood Pressure 160/71 H Pulse Oximetry 98 Oxygen Delivery Oxygen Flow Rate Fraction of Inspired Oxygen 12/16/24 03:05 12/16/24 03:15 12/16/24 06:05 Temperature 36.4 C L Pulse Rate 64 65 61 Respiratory Rate 16 16 18 Blood Pressure 149/73 H Pulse Oximetry 100 Oxygen Delivery Oxygen Flow Rate Fraction of Inspired Oxygen 12/16/24 06:05 12/16/24 08:35 12/16/24 08:45 Temperature 36.6 C Pulse Rate 60 59 L Respiratory Rate 24 H Blood Pressure 188/78 H Pulse Oximetry 99 97 Oxygen Delivery Nasal Cannula Oxygen Flow Rate 2 Fraction of Inspired Oxygen 12/16/24 09:11 12/16/24 09:11 12/16/24 09:32 Temperature Pulse Rate 59 L 61 Respiratory Rate 18 20 Blood Pressure Pulse Oximetry 97 Oxygen Delivery Nasal Cannula Oxygen Flow Rate 2 Fraction of Inspired Oxygen 12/16/24 10:15 12/16/24 13:26 12/16/24 14:20 Temperature 36.4 C L Pulse Rate 66 70 Respiratory Rate 24 H 20 Blood Pressure 154/60 H 168/78 H Pulse Oximetry 99 Oxygen Delivery Oxygen Flow Rate Fraction of Inspired Oxygen 12/16/24 14:30 12/16/24 14:45 Temperature 36.3 C L Pulse Rate 64 72 Respiratory Rate 20 24 H Blood Pressure 156/64 H Pulse Oximetry 97 Oxygen Delivery Oxygen Flow Rate Fraction of Inspired Oxygen Intake/Output Intake/Output: Intake & Output 12/13/24 12/14/24 12/15/24 12/16/24 23:59 23:59 23:59 23:59 Intake Total 390 1480 676 956 Output Total 500 200 Balance 390 980 676 756 Meds/Results Medications: Active Medications Generic Name Dose Route Start Last Admin Trade Name Freq PRN Reason Stop Dose Admin Acetaminophen 650 mg 12/09/24 18:53 12/12/24 22:15 Acetaminophen 325 Mg Tablet PO 650 mg Q4H PRN Administration Mild Pain (1-3) or Fever Hydrocodone Bitart/Acetaminophen 1 tab 12/14/24 11:35 12/16/24 14:31 Hydrocodone/Acetaminophen (*Crx) 5-325 Mg Tablet PO 1 tab Q6H PRN Administration Pain Rated 4-6 Albuterol/Ipratropium 3 ml 12/10/24 08:00 12/16/24 14:20 Ipratropium 0.5 Mg/Albuterol Sulfate 2.5 Mg Ampul.Neb 3 Ml INHALATION 3 ml Q6HRT MINGO Administration Alprazolam 0.5 mg 12/14/24 11:37 12/16/24 06:05 Alprazolam (*Crx) 0.5 Mg Tablet PO 0.5 mg TID PRN Administration Anxiety Azithromycin 500 mg 12/14/24 09:00 12/16/24 09:04 Azithromycin 250 Mg Tablet PO 500 mg DAILY MINGO Administration Dextrose 12.5 gm 12/10/24 03:00 Dextrose 50% 25 Gm/50 Ml Syringe IV PUSH PRN PRN Hypoglycemia Protocol Ferrous Sulfate 142 mg 12/10/24 08:00 12/16/24 09:03 Ferrous Sulfate Dried 142 Mg Tabcr PO 142 mg DAILY@0800 MINGO Administration Fluticasone Propionate 1 spray 12/10/24 09:00 12/16/24 11:45 Fluticasone Propionate 0.05% Na Spr 16 Gm Btl (*[facility]) NASAL 1 spray BID MINGO Administration Glucagon 1 mg 12/10/24 03:00 Glucagon For Inj 1 Mg Vial IM PRN PRN Hypoglycemia Protocol Glucose 15 gm 12/10/24 03:00 Glucose Oral Gel 15 Gm Of Glucse In 37.5 Gm Tube PO PRN PRN Hypoglycemia Protocol Guaifenesin 1,200 mg 12/10/24 09:00 12/16/24 09:06 Guaifenesin 12 Hr 600 Mg Tabcr PO 1,200 mg Q12HR MINGO Administration Hydralazine HCl 10 mg 12/13/24 15:23 Hydralazine Hcl 20 Mg/Ml Vial IV PUSH Q8H PRN Blood Pressure - High Dextrose 1,000 mls @ 100 mls/hr 12/10/24 03:00 Dextrose 5% 1,000 Ml IVPB PRN PRN Hypoglycemia Protocol Ceftriaxone Sodium 1 gm in 50 mls @ 100 mls/hr 12/10/24 11:55 12/16/24 08:45 Rocephin 1 Gm/Ns 50 Ml IVPB 100 mls/hr Q12HR MINGO Administration Lisinopril 5 mg 12/10/24 14:05 12/16/24 09:05 Lisinopril 5 Mg Tablet PO 5 mg QAM MINGO Administration Metoprolol Tartrate 25 mg 12/12/24 21:00 12/16/24 06:05 Metoprolol Tartrate 25 Mg Tablet PO 25 mg 07,21 MINGO Administration Ondansetron HCl 4 mg 12/09/24 18:53 12/11/24 19:06 Ondansetron Inj 4 Mg/2 Ml Vial IV PUSH 4 mg Q4H PRN Administration Nausea Oxycodone HCl 5 mg 12/10/24 10:48 12/14/24 10:26 Oxycodone Hcl (*Crx) 5 Mg Tab Ir PO 5 mg Q4H PRN Administration Pain Rated 7-10 Pantoprazole Sodium 40 mg 12/13/24 07:00 12/16/24 06:05 Pantoprazole 40 Mg Tablet PO 40 mg 0700 MINGO Administration Sodium Chloride 10 ml 12/13/24 22:00 12/16/24 14:31 Saline Lock Flush IV PUSH 10 ml Q8HR MINGO Administration Sodium Chloride 10 ml 12/13/24 15:20 Saline Lock Flush IV PUSH PRN PRN Flush Sodium Chloride 20 ml 12/13/24 15:20 Saline Lock Flush IV PUSH PRN PRN after blood draws Radiology Results: ITS Impressions Chest/Abdomen/Pelvis CT 12/09/24 17:27 IMPRESSION: Panlobular emphysematous disease. Findings within the right mid to lower lung field for which a pleural-based mass is suspected. Small right-sided pleural effusion is also noted. No acute pathology within the abdomen or pelvis. Abdomen Ultrasound 12/09/24 18:06 IMPRESSION: Limited evaluation of pancreas secondary to overlying bowel gas. No evidence of cholecystitis or cholelithiasis, consistent with recent CT examination, performed on the same day. Pulmonary Perfusion Imaging 12/10/24 15:37 IMPRESSION: 1. Intermediate probability for pulmonary embolism. 2. Small bilateral pleural effusions, right greater than left 3. Diffuse bilateral decreased washout of activity on the ventilation images consistent with obstructive pulmonary disease. Venous Doppler Study 12/11/24 08:13 IMPRESSION: Negative bilateral lower extremity venous US. No deep vein thrombosis. Chest CTA 12/13/24 16:32 IMPRESSION: No pulmonary embolus. No thoracic aortic dissection. Interval increase in the right-sided pleural effusion, now with adjacent compressive consolidation (with air bronchograms) for which pneumonia is suspected. Redemonstration of the pleural-based mass within the right middle lobe, which enhances with intravenous contrast. Redemonstration of panlobular emphysematous disease, without effusion or infiltrate in the left hemithorax. Chest X-Ray 12/14/24 12:22 IMPRESSION: Bilateral pneumonia. Underlying fibrotic/emphysematous changes Thoracentesis Ultrasound 12/14/24 12:34 IMPRESSION: 1. Successful ultrasound-guided thoracentesis yielding 500 mL of yellow fluid. Labs Labs: Laboratory Results - last 24 hr 12/16/24 05:39 WBC 7.4 RBC 4.05 L Hgb 9.6 L Hct 35.0 L MCV 86.4 MCH 23.7 L MCHC 27.4 L RDW 18.0 H Plt Count 425 H MPV 8.6 Immature Gran % (Auto) 0.5 Neut % (Auto) 72.9 Lymph % (Auto) 14.0 L [place] % (Auto) 7.1 Eos % (Auto) 4.6 H Baso % (Auto) 0.9 Lymph # (Auto) 1.04 [place] # (Auto) 0.5 Eos # (Auto) 0.3 Baso # (Auto) 0.1 Abs Immat Gran (auto) 0.04 H Absolute Neuts (auto) 5.4 Absolute Nucleated RBC 0.000 Nucleated RBC % 0.0 Sodium 140 Potassium 3.5 Chloride 100 Carbon Dioxide 37 H Anion Gap 3 L BUN 15 Creatinine 0.46 L Estim Creat Clear Calc 81 Estimated GFR > 60 Glucose 107 Calcium 9.0 Total Bilirubin 0.2 AST 19 ALT 15 Alkaline Phosphatase 74 Total Protein 6.0 L Albumin 2.8 L
--- NOTE | 2024-12-16 15:31 | P.PNIM_ITS ---
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 Qualified Code(s): D50.0 - Iron deficiency anemia secondary to blood loss (chronic) Code(s): D64.9 - Anemia, unspecified Status: Chronic (3) COPD (chronic obstructive pulmonary disease): Qualifiers: COPD type: unspecified COPD Qualified Code(s): J44.9 - Chronic obstructive pulmonary disease, unspecified Code(s): J44.9 - Chronic obstructive pulmonary disease, unspecified Status: Acute (4) Emphysema lung: Code(s): J43.9 - Emphysema, unspecified Status: Acute (5) Chronic respiratory failure with hypoxia, on home oxygen therapy: Code(s): J96.11 - Chronic respiratory failure with hypoxia; Z99.81 - Dependence on supplemental oxygen Status: Chronic Plan Lung mass and Pneumonia: Qualifiers: Laterality: bilateral Lung location: unspecified part of lung Pneumonia type: due to unspecified organism Qualified Code(s): J18.9 - Pneumonia, unspecified organism Code(s): J18.9 - Pneumonia, unspecified organism Chest CT showed emphysema disease with concerns for a pleural based mass Legionella negative. Urine Pneumococcal negative Mycoplasma negative. Thoracentesis was performed 12/15, cloudy yellow fluid drained out, fluid nucleated cell above 3000, neutrophil 24% possible empyema. Screen Cleaner recommend continue current treatment regimen GI bleeding Fecal occult blood test positive: Code(s): R19.5 - Other fecal abnormalities Status: Acute Assessment and Plan: EGD negative for any acute findings other than gastritis. GI recommend colonoscopy in outpatient office Sepsis: Qualifiers: Sepsis type: sepsis due to unspecified organism Sepsis acute organ dysfunction status: unspecified Qualified Code(s): A41.9 - Sepsis, unspecified organism Code(s): A41.9 - Sepsis, unspecified organism Status: Resolved Acute kidney injury: Code(s): N17.9 - Acute kidney failure, unspecified Status: Resolved Assessment and Plan: Now resolved. Hyperglycemia: Code(s): R73.9 - Hyperglycemia, unspecified Status: Acute Assessment and Plan: Continue SSI Continue Hypoglycemic protocol Change diet to Diabetic diet. Hypokalemia: Code(s): E87.6 - Hypokalemia Status: Acute Assessment and Plan: stable today- Chronic obstructive pulmonary disease: Code(s): J44.9 - Chronic obstructive pulmonary disease, unspecified Status: Chronic Assessment and Plan: * Appreciate continued management per Pulmonology. * Continue above mentioned measures including monitoring, oxygen, nebs # Chronic respiratory failure with hypoxia, on home oxygen therapy: Code(s): J96.11 - Chronic respiratory failure with hypoxia; Z99.81 - Dependence on supplemental oxygen Status: Chronic Assessment and Plan: * See #7 PUlm following Continue with current antibiotics for lower respiratory tract infection. Oncology consultation. Anticipate discharge home in a day or 2. Anemia: Qualifiers: Anemia type: iron deficiency Iron deficiency anemia type: chronic blood loss Qualified Code(s): D50.0 - Iron deficiency anemia secondary to blood loss (chronic) Code(s): D64.9 - Anemia, unspecified Status: Chronic Assessment and Plan: Hemoglobin stable, continue supplemental Iron. Hypertension: Code(s): I10 - Essential (primary) hypertension Status: Acute Assessment and Plan: Continue Lisinopril and Metoprolol Time Spent With Patient Time with patient: 25 - 35 minutes Subjective Date/time seen: 12/16/24 15:31 Interval history: Patient continues to complain of right pleuritic chest pain still requiring pain medications. Otherwise her respiratory status has improved. She has no cough or sputum production no fever. she is working with pt/ot, not quite ready for discharge Review of Systems Review of Systems: 12 systems were reviewed and are negativ e except for as per HPI. All systems reviewed & are unremarkable except as noted in HPI and below Exam 2 Narrative: GENERAL: Pleasant, in no acute distress. Well-nourished. - EYES: EOMI. Anicteric. - HENT: Moist mucous membranes. - LUNGS: Diminished throughout with so me crackles noted RLL. - CARDIOVASCULAR: Regular rate and rhyth m. No murmur. No JVD. - ABDOMEN: Soft, non-tender and non-dist ended. No palpable masses. - EXTREMITIES: No edema. Peripheral puls es 2+. Non-tender. - NEUROLOGIC: No focal neurological defi cits. CN II-XII grossly intact. - PSYCHIATRIC: Awake, Alert and oriented x 3. Appropriate mood and affect. - SKIN: No rashes or lesions. Warm. - LYMPH: No cervical lymphadenopathy. Const: General: comfortable Objective Data Vital Signs Vital Signs: Vital Signs - 24 hr 12/15/24 20:00 12/15/24 20:16 12/15/24 20:18 Temperature Pulse Rate 88 81 Respiratory Rate 16 16 Blood Pressure Pulse Oximetry 98 98 Oxygen Delivery Nasal Cannula Nasal Cannula Oxygen Flow Rate 3 3 Fraction of Inspired Oxygen 32 12/15/24 20:21 12/15/24 20:56 12/15/24 21:12 Temperature 97.8 F Pulse Rate 77 69 88 Respiratory Rate 16 16 Blood Pressure 160/71 H Pulse Oximetry 98 Oxygen Delivery Oxygen Flow Rate Fraction of Inspired Oxygen 12/16/24 03:05 12/16/24 03:15 12/16/24 06:05 Temperature 97.5 F L Pulse Rate 64 65 61 Respiratory Rate 16 16 18 Blood Pressure 149/73 H Pulse Oximetry 100 Oxygen Delivery Oxygen Flow Rate Fraction of Inspired Oxygen 12/16/24 06:05 12/16/24 08:35 12/16/24 08:45 Temperature 97.8 F Pulse Rate 60 59 L Respiratory Rate 24 H Blood Pressure 188/78 H Pulse Oximetry 99 97 Oxygen Delivery Nasal Cannula Oxygen Flow Rate 2 Fraction of Inspired Oxygen 12/16/24 09:11 12/16/24 09:11 12/16/24 09:32 Temperature Pulse Rate 59 L 61 Respiratory Rate 18 20 Blood Pressure Pulse Oximetry 97 Oxygen Delivery Nasal Cannula Oxygen Flow Rate 2 Fraction of Inspired Oxygen 12/16/24 10:15 12/16/24 13:26 12/16/24 14:20 Temperature 97.5 F L Pulse Rate 66 70 Respiratory Rate 24 H 20 Blood Pressure 154/60 H 168/78 H Pulse Oximetry 99 Oxygen Delivery Oxygen Flow Rate Fraction of Inspired Oxygen 12/16/24 14:30 12/16/24 14:45 Temperature 97.3 F L Pulse Rate 64 72 Respiratory Rate 20 24 H Blood Pressure 156/64 H Pulse Oximetry 97 Oxygen Delivery Oxygen Flow Rate Fraction of Inspired Oxygen Intake/Output Intake/Output: Intake & Output 12/13/24 12/14/24 12/15/24 12/16/24 23:59 23:59 23:59 23:59 Intake Total 390 1480 676 956 Output Total 500 200 Balance 390 980 676 756 Meds/Results Medications: Active Medications Generic Name Dose Route Start Last Admin Trade Name Zita PRN Reason Stop Dose Admin Acetaminophen 650 mg 12/09/24 18:53 12/12/24 22:15 Acetaminophen 325 Mg Tablet PO 650 mg Q4H PRN Administration Mild Pain (1-3) or Fever Hydrocodone Bitart/Acetaminophen 1 tab 12/14/24 11:35 12/16/24 14:31 Hydrocodone/Acetaminophen (*Crx) 5-325 Mg Tablet PO 1 tab Q6H PRN Administration Pain Rated 4-6 Albuterol/Ipratropium 3 ml 12/10/24 08:00 12/16/24 14:20 Ipratropium 0.5 Mg/Albuterol Sulfate 2.5 Mg Ampul.Neb 3 Ml INHALATION 3 ml Q6HRT MINGO Administration Alprazolam 0.5 mg 12/14/24 11:37 12/16/24 06:05 Alprazolam (*Crx) 0.5 Mg Tablet PO 0.5 mg TID PRN Administration Anxiety Azithromycin 500 mg 12/14/24 09:00 12/16/24 09:04 Azithromycin 250 Mg Tablet PO 500 mg DAILY MINGO Administration Dextrose 12.5 gm 12/10/24 03:00 Dextrose 50% 25 Gm/50 Ml Syringe IV PUSH PRN PRN Hypoglycemia Protocol Ferrous Sulfate 142 mg 12/10/24 08:00 12/16/24 09:03 Ferrous Sulfate Dried 142 Mg Tabcr PO 142 mg DAILY@0800 MINGO Administration Fluticasone Propionate 1 spray 12/10/24 09:00 12/16/24 11:45 Fluticasone Propionate 0.05% Na Spr 16 Gm Btl (*Bkc) NASAL 1 spray BID MINGO Administration Glucagon 1 mg 12/10/24 03:00 Glucagon For Inj 1 Mg Vial IM PRN PRN Hypoglycemia Protocol Glucose 15 gm 12/10/24 03:00 Glucose Oral Gel 15 Gm Of Glucse In 37.5 Gm Tube PO PRN PRN Hypoglycemia Protocol Guaifenesin 1,200 mg 12/10/24 09:00 12/16/24 09:06 Guaifenesin 12 Hr 600 Mg Tabcr PO 1,200 mg Q12HR MINGO Administration Hydralazine HCl 10 mg 12/13/24 15:23 Hydralazine Hcl 20 Mg/Ml Vial IV PUSH Q8H PRN Blood Pressure - High Dextrose 1,000 mls @ 100 mls/hr 12/10/24 03:00 Dextrose 5% 1,000 Ml IVPB PRN PRN Hypoglycemia Protocol Ceftriaxone Sodium 1 gm in 50 mls @ 100 mls/hr 12/10/24 11:55 12/16/24 08:45 Rocephin 1 Gm/Ns 50 Ml IVPB 100 mls/hr Q12HR MINGO Administration Lisinopril 5 mg 12/10/24 14:05 12/16/24 09:05 Lisinopril 5 Mg Tablet PO 5 mg QAM MINGO Administration Metoprolol Tartrate 25 mg 12/12/24 21:00 12/16/24 06:05 Metoprolol Tartrate 25 Mg Tablet PO 25 mg 07,21 MINGO Administration Ondansetron HCl 4 mg 12/09/24 18:53 12/11/24 19:06 Ondansetron Inj 4 Mg/2 Ml Vial IV PUSH 4 mg Q4H PRN Administration Nausea Oxycodone HCl 5 mg 12/10/24 10:48 12/14/24 10:26 Oxycodone Hcl (*Crx) 5 Mg Tab Ir PO 5 mg Q4H PRN Administration Pain Rated 7-10 Pantoprazole Sodium 40 mg 12/13/24 07:00 12/16/24 06:05 Pantoprazole 40 Mg Tablet PO 40 mg 0700 MINGO Administration Sodium Chloride 10 ml 12/13/24 22:00 12/16/24 14:31 Saline Lock Flush IV PUSH 10 ml Q8HR MINGO Administration Sodium Chloride 10 ml 12/13/24 15:20 Saline Lock Flush IV PUSH PRN PRN Flush Sodium Chloride 20 ml 12/13/24 15:20 Saline Lock Flush IV PUSH PRN PRN after blood draws Radiology Results: ITS Impressions Chest/Abdomen/Pelvis CT 12/09/24 17:27 IMPRESSION: Panlobular emphysematous disease. Findings within the right mid to lower lung field for which a pleural-based mass is suspected. Small right-sided pleural effusion is also noted. No acute pathology within the abdomen or pelvis. Abdomen Ultrasound 12/09/24 18:06 IMPRESSION: Limited evaluation of pancreas secondary to overlying bowel gas. No evidence of cholecystitis or cholelithiasis, consistent with recent CT exam ination, performed on the same day. Pulmonary Perfusion Imaging 12/10/24 15:37 IMPRESSION: 1. Intermediate probability for pulmonary embolism. 2. Small bilateral pleural effusions, right greater than left 3. Diffuse bilateral decreased washout of activity on the ventilation images consistent with obstructive pulmonary disease. Venous Doppler Study 12/11/24 08:13 IMPRESSION: Negative bilateral lower extremity venous US. No deep vein thrombosis. Chest CTA 12/13/24 16:32 IMPRESSION: No pulmonary embolus. No thoracic aortic dissection. Interval increase in the right-sided pleural effusion, now with adjacent compressive consolidation (with air bronchograms) for which pneumonia is suspected. Redemonstration of the pleural-based mass within the right middle lobe, which enhances with intravenous contrast. Redemonstration of panlobular emphysematous disease, without effusion or infiltrate in the left hemithorax. Chest X-Ray 12/14/24 12:22 IMPRESSION: Bilateral pneumonia. Underlying fibrotic/emphysematous changes Thoracentesis Ultrasound 12/14/24 12:34 IMPRESSION: 1. Successful ultrasound-guided thoracentesis yielding 500 mL of yellow fluid. Labs Labs: Laboratory Results - last 24 hr 12/16/24 05:39 WBC 7.4 RBC 4.05 L Hgb 9.6 L Hct 35.0 L MCV 86.4 MCH 23.7 L MCHC 27.4 L RDW 18.0 H Plt Count 425 H MPV 8.6 Immature Gran % (Auto) 0.5 Neut % (Auto) 72.9 Lymph % (Auto) 14.0 L [place] % (Auto) 7.1 Eos % (Auto) 4.6 H Baso % (Auto) 0.9 Lymph # (Auto) 1.04 [place] # (Auto) 0.5 Eos # (Auto) 0.3 Baso # (Auto) 0.1 Abs Immat Gran (auto) 0.04 H Absolute Neuts (auto) 5.4 Absolute Nucleated RBC 0.000 Nucleated RBC % 0.0 Sodium 140 Potassium 3.5 Chloride 100 Carbon Dioxide 37 H Anion Gap 3 L BUN 15 Creatinine 0.46 L Estim Creat Clear Calc 81 Estimated GFR > 60 Glucose 107 Calcium 9.0 Total Bilirubin 0.2 AST 19 ALT 15 Alkaline Phosphatase 74 Total Protein 6.0 L Albumin 2.8 L Quality VTE Prophylaxis VTE prophylaxis: mechanical ordered
[2024-12-17] VITALS (14 sets, daily range): BP systolic 159–173; BP diastolic 59–73; PULSE 60–100; RESP 16–20; TEMP 36.2–36.9; O2SAT 95–100
[2024-12-17] MEDS: ALPRAZolam (*CRX) 0.5 MG TABLET PO ×3 (00:36→16:06)
[2024-12-17] MEDS: IPRATROPIUM 0.5 MG/ALBUTEROL SULFATE 2.5 MG AMPUL.NEB 3 ML INHALATION ×4 (01:35→19:44)
[2024-12-17] MEDS: oxyCODONE HCL (*CRX) 5 MG TAB IR PO ×2 (04:04→13:39)
[2024-12-17] MEDS: PANTOPRAZOLE 40 MG TABLET PO (06:01)
[2024-12-17] MEDS: METOPROLOL TARTRATE 25 MG TABLET PO ×2 (06:01→20:10)
[2024-12-17] MEDS: SALINE LOCK FLUSH 10 ML IV PUSH ×3 (06:01→20:10)
[2024-12-17] MEDS: FERROUS SULFATE DRIED 142 MG TABCR PO (08:47)
[2024-12-17] MEDS: AZITHROMYCIN 250 MG TABLET 500 MG PO (08:47)
[2024-12-17] MEDS: guaiFENesin 12 HR 600 MG TABCR 1200 MG PO ×2 (08:47→20:05)
[2024-12-17] MEDS: lisinopriL 5 MG TABLET PO (08:48)
[2024-12-17] MEDS: HYDROcodone/acetaminophen (*CRX) 5-325 MG TABLET 1 TAB PO ×2 (08:52→20:10)
--- NOTE | 2024-12-17 12:40 | P.CONONC_ITS ---
Assessment and Plan Assessment and plan (1) Non-small cell lung cancer: Code(s): C34.90 - Malignant neoplasm of unspecified part of unspecified bronchus or lung Status: Acute Assessment and Plan: Non-small cell lung cancer with adenocarcinoma histology stage IV disease status post right-sided thoracentesis done on December 14, 2024 that showed malignant cell consistent with adenocarcinoma. Patient has a history of smoking more than 1 pack per day but quit about 3 years ago. She came into the hospital with shortness of breath and chest discomfort along with some cough with yellow-green sputum. She was diagnosed with pneumonia as well. CT chest abdomen pelvis showed finding within the right mid to lower lung field with a pleural base mass along with small right-sided pleural effusion. I have discussed these finding with patient in detail and informed her that based on the malignant pleural effusion should be calcified as stage IV disease that would require systemic chemo immunotherapy combination. I will ask surgical consultation for MediPort placement. She will follow-up with me in the office for initiation of chemotherapy and we will also order the PET scan as an outpatient. I will order CT scan of the head as well. I have answered all the questions to patient's satisfaction. HPI Data of Consult Date/Time: 12/17/24 12:40 Requesting Physician: PAUL Robertson Primary Care Provider: Rahat Jurado MD Consult Narrative Narrative: Inez Delgado is a 69 year old female with history of smoking more than 1 pack per day but quit 3 years ago along with history of coronary artery disease, hypertension, COPD on home oxygen came into the hospital with lightheadedness and dizziness along with some shortness of breath and cough with yellowish- greenish sputum. Patient was also having some pleuritic pain in the right side of the chest wall. CT chest abdomen pelvis showed right mid to lower lung field pleural base mass with small right-sided pleural effusion. Thoracentesis was performed with removal of 500 cc of yellow fluid and cytology came back positive for adenocarcinoma. She has no previous history of malignancy. Denies any weight loss. Denies any bone pain. Denies any other new complaints. Her other labs showed hemoglobin of 6.7. Gastroenterology was consulted but patient prefers to have colonoscopy as an outpatient after recovering from the pneumonia. EGD showed no major findings other than gastritis. Review of Systems 2 Review of Systems: Review of system as per HPI otherwise negative [facility] Past Medical History Medical History (Updated 12/17/24 @ 12:43 by Abdias Lozano MD) Hypokalemia Chronic respiratory failure with hypoxia, on home oxygen therapy Chronic obstructive pulmonary disease Bleeding gastric ulcer Hypertension History of blood transfusion Seasonal allergies Tension headache Depression O2 dependent Cervicalgia Low back pain Heart disease Migraines Anxiety Anemia Surgical History Surgical History History of transcatheter aortic valve implantation ([facility]) (2022) History of laparoscopy History of esophagogastroduodenoscopy (EGD) History of (1980) Family History Family History Father Alcoholism Heart disease Hypertension Grandparent Carcinoma of colon Acute myocardial infarction Social History Social History Social History: Surrogate medical decision maker: Shara Martin, rosa Code status: Full code. Years smoked: 50 Smoking status: Former smoker Tobacco type: cigarettes Smoking end date: 09/23/23 Alcohol intake: never Substance use: never Substance use type: does not use Do You Feel Safe in your Home?: Yes Lack of Transportation: YES Lack of Food: Never True Current Housing: I Have Housing Concerned About Future Housing: No Difficulty Paying Gas/Electric Bills: No Difficulty Paying for Meds: No Currently Unemployed: No Education: Associate Degree Difficulty w/ Childcare or Family Care: No Spiritual care concerns: No Meds Home Medications and Allergies Home Medications ?Medication ?Instructions ?Recorded ?Confirmed ?Type cyclobenzaprine 10 mg tablet 5 - 10 mg (0.5 - 1 x 10 mg) PO TID 01/03/24 12/10/24 Rx PRN muscle spasm #90 tabs fluticasone propionate 50 1 spray intranasal BID #16 grams 01/03/24 12/10/24 Rx mcg/actuation nasal spray,suspension (Flonase Allergy Relief) lisinopril 5 mg tablet 5 mg PO DAILY #30 tabs 01/03/24 12/10/24 Rx metoprolol tartrate 25 mg tablet 25 mg PO BID #60 tabs 01/03/24 12/10/24 Rx omeprazole 40 mg capsule,delayed 40 mg PO DAILY #30 caps 01/03/24 12/10/24 Rx release ferrous sulfate 137 mg (45 mg 137 mg PO DAILY 01/06/24 12/10/24 History iron) tablet,extended release (Slow Fe) albuterol sulfate 90 mcg/actuation 1 - 2 inh inhalation Q4-6H PRN 10/30/24 12/10/24 Rx aerosol inhaler shortness of breath or wheezing #8.5 grams [id number]-[id number]-igzrkuld 250 2 tablet PO Q6H PRN migraine 12/10/24 12/10/24 History mg-250 mg-65 mg tablet (Migraine headache Relief) nwkvoindkdfsl-[id number]-guaif 20 ml PO Q6H PRN cold symptoms 12/10/24 12/10/24 History 10 mg-20 mg-650 mg/20 mL oral liq Allergies Allergy/AdvReac Type Severity Reaction Status Date / Time IVP Dye Allergy Unknown unknown Uncoded 01/03/24 11:12 Vital Signs Vital Signs - 24 hr 12/16/24 13:26 12/16/24 14:20 12/16/24 14:30 Temperature 36.4 C L Pulse Rate 66 70 64 Respiratory Rate 24 H 20 20 Blood Pressure 168/78 H Pulse Oximetry 99 Oxygen Delivery Oxygen Flow Rate Fraction of Inspired Oxygen 12/16/24 14:45 12/16/24 19:34 12/16/24 19:34 Temperature 36.3 C L Pulse Rate 72 85 Respiratory Rate 24 H 18 Blood Pressure 156/64 H Pulse Oximetry 97 97 Oxygen Delivery Nasal Cannula Oxygen Flow Rate 2 Fraction of Inspired Oxygen 28 12/16/24 19:45 12/16/24 20:35 12/16/24 20:38 Temperature Pulse Rate 81 88 Respiratory Rate 18 Blood Pressure Pulse Oximetry 96 Oxygen Delivery Nasal Cannula Oxygen Flow Rate 2 Fraction of Inspired Oxygen 12/16/24 21:47 12/17/24 01:35 12/17/24 01:47 Temperature 36.6 C Pulse Rate 89 78 76 Respiratory Rate 16 18 18 Blood Pressure 156/65 H Pulse Oximetry 96 Oxygen Delivery Oxygen Flow Rate Fraction of Inspired Oxygen 12/17/24 06:01 12/17/24 06:44 12/17/24 08:00 Temperature 36.9 C Pulse Rate 100 72 Respiratory Rate 20 Blood Pressure 159/73 H Pulse Oximetry 98 95 Oxygen Delivery Nasal Cannula Oxygen Flow Rate 2 Fraction of Inspired Oxygen 12/17/24 08:17 12/17/24 08:17 12/17/24 08:24 Temperature Pulse Rate 60 60 60 Respiratory Rate 20 20 20 Blood Pressure Pulse Oximetry 95 Oxygen Delivery Nasal Cannula Oxygen Flow Rate 2 Fraction of Inspired Oxygen Exam 2 Narrative: Lungs diminished breath sound bilaterally consistent with COPD Cardiovascular regular rate rhythm no murmurs Abdomen soft nontender nondistended Extremities no edema Results Labs 12/16/24 05:39 12/16/24 05:39
--- NOTE | 2024-12-17 13:50 | P.CONGS_ITS ---
Assessment and Plan Assessment and plan (1) Non-small cell lung cancer: Code(s): C34.90 - Malignant neoplasm of unspecified part of unspecified bronchus or lung Status: Acute Assessment and Plan: Patient appears to have stage IV non-small cell lung cancer and was evaluated by Oncology, who is requesting Frannie cath placement. Unfortunately, this cannot be done this week, but she can be discharged when medically stable and be brought back to do this as an outpatient in the near future. I discussed the procedure, risks, benefits, alternatives, and expected outcomes with the patient. All questions were answered. Thank you for asking us to see this patient in consultation. (2) COPD (chronic obstructive pulmonary disease): Qualifiers: COPD type: unspecified COPD Qualified Code(s): J44.9 - Chronic obstructive pulmonary disease, unspecified Code(s): J44.9 - Chronic obstructive pulmonary disease, unspecified Status: Acute (3) Anemia: Qualifiers: Anemia type: iron deficiency Iron deficiency anemia type: chronic blood loss Qualified Code(s): D50.0 - Iron deficiency anemia secondary to blood loss (chronic) Code(s): D64.9 - Anemia, unspecified Status: Chronic (4) Chronic respiratory failure with hypoxia, on home oxygen therapy: Code(s): J96.11 - Chronic respiratory failure with hypoxia; Z99.81 - Dependence on supplemental oxygen Status: Chronic Plan I have discussed the patient's case and plan of care with Dr. Campbell. History of Present Illness Consult details Consult date: 12/17/24 Reason for consult: other (Port placement) Requesting physician: Abdias Lozano MD Narrative: This is a 69-year-old female with PMH of COPD with chronic respiratory failure on 3 L O2 therapy, history of CAD, HTN, who we have been asked to see in surgical consultation for Port-A-Cath placement. She initially came into the hospital with lightheadedness and dizziness with shortness of breath and a productive cough about a week ago. CT chest abdomen pelvis showed right mid to lower lung field pleural base mass with small right- sided pleural effusion. Thoracentesis was performed with removal of 500 cc of yellow fluid and cytology came back positive for adenocarcinoma. She has no previous history of malignancy. She was also found to be anemic. Gastroenterology was consulted but patient prefers to have colonoscopy as an outpatient after recovering from the pneumonia. EGD showed no major findings other than gastritis. Pulmonology has also been following for her COPD and lower respiratory tract infection, which is being treated with antibiotics. Oncology was consulted and evaluated the patient today. They have now consulted our service for Port-A-Cath placement. Her only previous chest or neck surgery includes her aortic valve replacement that was done through her right neck. Review of Systems 2 Review of Systems: All systems reviewed & are unremarkable except as noted in HPI and below PMFSH Past Medical History Medical History Hypokalemia Chronic respiratory failure with hypoxia, on home oxygen therapy Chronic obstructive pulmonary disease Bleeding gastric ulcer Hypertension History of blood transfusion Seasonal allergies Tension headache Depression O2 dependent Cervicalgia Low back pain Heart disease Migraines Anxiety Anemia Surgical History Surgical History History of transcatheter aortic valve implantation (REYNA) (2022) via right neck History of laparoscopy History of esophagogastroduodenoscopy (EGD) History of (1980) Family History Family History Father Alcoholism Heart disease Hypertension Grandparent Carcinoma of colon Acute myocardial infarction Social History Social History Social History: Surrogate medical decision maker: rosa Cisneros Code status: Full code. Years smoked: 50 Smoking status: Former smoker Tobacco type: cigarettes Smoking end date: 09/23/23 Alcohol intake: never Substance use: never Substance use type: does not use Do You Feel Safe in your Home?: Yes Lack of Transportation: YES Lack of Food: Never True Current Housing: I Have Housing Concerned About Future Housing: No Difficulty Paying Gas/Electric Bills: No Difficulty Paying for Meds: No Currently Unemployed: No Education: Associate Degree Difficulty w/ Childcare or Family Care: No Spiritual care concerns: No Meds Home Medications and Allergies Home Medications ?Medication ?Instructions ?Recorded ?Confirmed ?Type cyclobenzaprine 10 mg tablet 5 - 10 mg (0.5 - 1 x 10 mg) PO TID 01/03/24 12/10/24 Rx PRN muscle spasm #90 tabs fluticasone propionate 50 1 spray intranasal BID #16 grams 01/03/24 12/10/24 Rx mcg/actuation nasal spray,suspension (Flonase Allergy Relief) lisinopril 5 mg tablet 5 mg PO DAILY #30 tabs 01/03/24 12/10/24 Rx metoprolol tartrate 25 mg tablet 25 mg PO BID #60 tabs 01/03/24 12/10/24 Rx omeprazole 40 mg capsule,delayed 40 mg PO DAILY #30 caps 01/03/24 12/10/24 Rx release ferrous sulfate 137 mg (45 mg 137 mg PO DAILY 01/06/24 12/10/24 History iron) tablet,extended release (Slow Fe) albuterol sulfate 90 mcg/actuation 1 - 2 inh inhalation Q4-6H PRN 10/30/24 12/10/24 Rx aerosol inhaler shortness of breath or wheezing #8.5 grams qcufpqf-folgflmwdllww-umilomlv 250 2 tablet PO Q6H PRN migraine 12/10/24 12/10/24 History mg-250 mg-65 mg tablet (Migraine headache Relief) akgfveyvptvas-WM-xcrdmmzfawyqq-guaif 20 ml PO Q6H PRN cold symptoms 12/10/24 12/10/24 History 10 mg-20 mg-650 mg/20 mL oral liq Allergies Allergy/AdvReac Type Severity Reaction Status Date / Time IVP Dye Allergy Unknown unknown Uncoded 01/03/24 11:12 Vital Signs Vital Signs - 24 hr 12/16/24 14:20 12/16/24 14:30 12/16/24 14:45 Temperature 97.3 F L Pulse Rate 70 64 72 Respiratory Rate 20 20 24 H Blood Pressure 156/64 H Pulse Oximetry 97 Oxygen Delivery Oxygen Flow Rate Fraction of Inspired Oxygen 12/16/24 19:34 12/16/24 19:34 12/16/24 19:45 Temperature Pulse Rate 85 81 Respiratory Rate 18 18 Blood Pressure Pulse Oximetry 97 Oxygen Delivery Nasal Cannula Oxygen Flow Rate 2 Fraction of Inspired Oxygen 28 12/16/24 20:35 12/16/24 20:38 12/16/24 21:47 Temperature 97.8 F Pulse Rate 88 89 Respiratory Rate 16 Blood Pressure 156/65 H Pulse Oximetry 96 96 Oxygen Delivery Nasal Cannula Oxygen Flow Rate 2 Fraction of Inspired Oxygen 12/17/24 01:35 12/17/24 01:47 12/17/24 06:01 Temperature Pulse Rate 78 76 100 Respiratory Rate 18 18 Blood Pressure Pulse Oximetry Oxygen Delivery Oxygen Flow Rate Fraction of Inspired Oxygen 12/17/24 06:44 12/17/24 08:00 12/17/24 08:17 Temperature 98.4 F Pulse Rate 72 60 Respiratory Rate 20 20 Blood Pressure 159/73 H Pulse Oximetry 98 95 95 Oxygen Delivery Nasal Cannula Nasal Cannula Oxygen Flow Rate 2 2 Fraction of Inspired Oxygen 12/17/24 08:17 12/17/24 08:24 Temperature Pulse Rate 60 60 Respiratory Rate 20 20 Blood Pressure Pulse Oximetry Oxygen Delivery Oxygen Flow Rate Fraction of Inspired Oxygen Exam 2 Const: General: comfortable and no acute distress Nutritional Appearance: a verage body habitus Orientation/consciousness: patient oriented x3 HENMT: Head: normocephalic and atraumatic Ears: hearing grossly normal bilaterally Mouth: Yes moist mucous membranes Eyes: General: appearance normal, both eyes and all related structures P upils: Equal, round and reactive pupils present Neck: Neck: normal visual inspection, full ROM and other (transverse scar on right neck) Chest: Chest palpation & inspection: normal inspection of the chest Resp: Effort & Inspection: no respiratory distress Auscultation: diminished lung sounds Cardio: Rate: regular rate Rhythm: regular rhythm Peripheral pulses: P eripheral pulses 2+ throughout GI: Inspection: non-distended GI Palp: Yes Soft to palpation, No Tenderness to palpation present (GI), No Guarding due to palpation present (GI) and No Rebound tenderness present Auscultation: normal bowel sounds Skin: General skin exam: normal color Neuro: General: moves all extremities and no focal motor deficits Speech: n ormal speech Motor exam (neuro): 5/5 motor strength present throughout Extrem: General: normal to inspection and no edema Psych: Mental Status: mental status grossly normal Attitude: cooperative Insight: Good insight present (Psych) Judgement: Good judgement present (Psych) Results Labs 12/16/24 05:39 12/16/24 05:39 Labs: All other labs normal. Imaging Additional studies: ITS Impressions Chest X-Ray 12/09/24 16:39 IMPRESSION: Bilateral pneumonia. Underlying fibrotic/emphysematous Changes. Chest/Abdomen/Pelvis CT 12/09/24 17:27 IMPRESSION: Panlobular emphysematous disease. Findings within the right mid to lower lung field for which a pleural-based mass is suspected. Small right-sided pleural effusion is also noted. No acute pathology within the abdomen or pelvis. Abdomen Ultrasound 12/09/24 18:06 IMPRESSION: Limited evaluation of pancreas secondary to overlying bowel gas. No evidence of cholecystitis or cholelithiasis, consistent with recent CT examination, performed on the same day. Pulmonary Perfusion Imaging 12/10/24 15:37 IMPRESSION: 1. Intermediate probability for pulmonary embolism. 2. Small bilateral pleural effusions, right greater than left 3. Diffuse bilateral decreased washout of activity on the ventilation images consistent with obstructive pulmonary disease. Venous Doppler Study 12/11/24 08:13 IMPRESSION: Negative bilateral lower extremity venous US. No deep vein thrombosis. Chest X-Ray 12/13/24 06:21 IMPRESSION: Interval development of a right-sided parapneumonic effusion with interval worsening of the airspace disease within the right mid to lower lung field. Chest CTA 12/13/24 16:32 IMPRESSION: No pulmonary embolus. No thoracic aortic dissection. Interval increase in the right-sided pleural effusion, now with adjacent compressive consolidation (with air bronchograms) for which pneumonia is suspected. Redemonstration of the pleural-based mass within the right middle lobe, which enhances with intravenous contrast. Redemonstration of panlobular emphysematous disease, without effusion or infiltrate in the left hemithorax. Chest X-Ray 12/14/24 12:22 IMPRESSION: Bilateral pneumonia. Underlying fibrotic/emphysematous changes Thoracentesis Ultrasound 12/14/24 12:34 IMPRESSION: 1. Successful ultrasound-guided thoracentesis yielding 500 mL of yellow fluid. Head CT 12/17/24 13:28 IMPRESSION: 1. Mild scattered periventricular predominant white matter hypoattenuation consistent with chronic small vessel ischemic disease. Of note assessment for metastatic disease is significantly limited in the absence of contrast.
--- NOTE | 2024-12-17 14:24 | PM.PNPUL ---
Progress Note: A&P Assessment and Plan (1) Emphysema lung: Code(s): J43.9 - Emphysema, unspecified Status: Acute (2) Pneumonia: Qualifiers: Laterality: bilateral Lung location: unspecified part of lung Pneumonia type: due to unspecified organism Qualified Code(s): J18.9 - Pneumonia, unspecified organism Code(s): J18.9 - Pneumonia, unspecified organism Status: Acute Assessment and Plan: This 69-year-old female with a history of COPD and chronic hypoxemic respiratory failure on supplemental oxygen presented with right pleuritic chest pain, leukocytosis, and new lung infiltrates/consolidation in the right subpleural area. Her presentation, along with diagnostic studies, suggests community-acquired pneumonia, given her positive response to antibiotics and declining white blood cell count. The patient continues to experience right pleuritic chest pain, necessitating the use of opiates for improved pain management. WBC is back into the normal range although the patient continues to have a right pleuritic chest pain related to peripheral location of pneumonia. New chest x-ray showed in addition to previous infiltrate new pleural effusion on right likely loculated. Urine antigen negative for community-acquired pneumonia. The patient underwent a CT Pulmonary Angiography (CT PA), which revealed a moderate increase in left pleural effusion compared to a previous study. Additionally, there was a persistent pleural-based mass within the right middle lobe, which showed enhancement with intravenous contrast. This latter finding raises concerns about a potential malignancy, especially since the right pleuritic chest pain persists despite treatment for community-acquired pneumonia, normalization of the white cell count, and improvement in cough and sputum production. This suggests that the symptoms may not be solely due to pneumonia, but could be related to a possible malignancy. She underwent thoracentesis with removal of clear yellow fluid. Fluid pH not consistent with empyema. Also cell count not consistent with complicated parapneumonic effusion. Complete pleural fluid a data pending. Pleural fluid cytology showed adenocarcinoma, please refer to the pathology report Over the last 24 hours her respiratory status is stable. The patient already evaluated by Oncology services. She is scheduled to undergo placement of Port-A-Cath Plan: The patient is cleared for discharge from a respiratory perspective, pending the completion of procedures requested by Oncology. Regarding her respiratory condition, she should continue using supplemental oxygen as previously prescribed and maintain her regimen of nebulized short-acting bronchodilators. To manage her advanced COPD, it is recommended that she starts on a maintenance bronchodilator such as Trelegy 100, taken once daily. The patient should contact the Pulmonary Clinic to schedule an appointment approximately 4-5 weeks post-discharge. I will inform our scheduling front office secretary to arrange a follow-up appointment. I will sign off please call with any questions. (3) Chronic obstructive pulmonary disease: Code(s): J44.9 - Chronic obstructive pulmonary disease, unspecified Status: Chronic (4) Chronic respiratory failure with hypoxia, on home oxygen therapy: Code(s): J96.11 - Chronic respiratory failure with hypoxia; Z99.81 - Dependence on supplemental oxygen Status: Chronic Subjective Date/time seen: 12/17/24 14:24 Interval history: Patient has no new respiratory symptoms. She continues to have a right pleuritic chest pain but less than before. She he had questions about her newly diagnosed cancer and specifically about the stage and seriousness of the cancer. Review of Systems Review of Systems: All systems reviewed & are unremarkable except as noted in HPI and below (HPI and below) Exam Narrative: GENERAL APPEARANCE: Well developed, well nourished, alert and cooperative, and appears to be in no acute distress SKIN: Inspection of the skin reveals no rashes, ulcerations or petechiae. HEENT: Sclerae anicteric and conjunctivae pink and moist. Extraocular movements were intact and pupils were equal, round, and reactive to light. The oral mucosa, hard and soft palate, tongue and posterior pharynx were normal. NECK: Supple. There was no thyroid enlargement, and no tenderness, or masses were felt. CHEST: Normal AP diameter and normal contour without any kyphoscoliosis. LUNGS: Distant breath sounds few crackles right lung base posteriorly no wheezing CARDIAC: There was a regular rate and rhythm without any murmurs, gallops, rubs. ABDOMEN: Soft and nontender with normal bowel sounds. There was no organomegaly. LYMPH NODES: No lymphadenopathy was appreciated in the neck. EXTREMITIES: No cyanosis, clubbing or edema. NEUROLOGIC: Alert and oriented x 3. Normal affect. Objective Data Vital Signs Vital Signs: Vital Signs - 24 hr 12/16/24 14:30 12/16/24 14:45 12/16/24 19:34 Temperature 36.3 C L Pulse Rate 64 72 Respiratory Rate 20 24 H Blood Pressure 156/64 H Pulse Oximetry 97 97 Oxygen Delivery Nasal Cannula Oxygen Flow Rate 2 Fraction of Inspired Oxygen 28 12/16/24 19:34 12/16/24 19:45 12/16/24 20:35 Temperature Pulse Rate 85 81 Respiratory Rate 18 18 Blood Pressure Pulse Oximetry 96 Oxygen Delivery Nasal Cannula Oxygen Flow Rate 2 Fraction of Inspired Oxygen 12/16/24 20:38 12/16/24 21:47 12/17/24 01:35 Temperature 36.6 C Pulse Rate 88 89 78 Respiratory Rate 16 18 Blood Pressure 156/65 H Pulse Oximetry 96 Oxygen Delivery Oxygen Flow Rate Fraction of Inspired Oxygen 12/17/24 01:47 12/17/24 06:01 12/17/24 06:44 Temperature 36.9 C Pulse Rate 76 100 72 Respiratory Rate 18 20 Blood Pressure 159/73 H Pulse Oximetry 98 Oxygen Delivery Oxygen Flow Rate Fraction of Inspired Oxygen 12/17/24 08:00 12/17/24 08:17 12/17/24 08:17 Temperature Pulse Rate 60 60 Respiratory Rate 20 20 Blood Pressure Pulse Oximetry 95 95 Oxygen Delivery Nasal Cannula Nasal Cannula Oxygen Flow Rate 2 2 Fraction of Inspired Oxygen 12/17/24 08:24 12/17/24 13:52 Temperature 36.4 C L Pulse Rate 60 63 Respiratory Rate 20 20 Blood Pressure 160/59 H Pulse Oximetry 98 Oxygen Delivery Oxygen Flow Rate Fraction of Inspired Oxygen Intake/Output Intake/Output: Intake & Output 12/14/24 12/15/24 12/16/24 12/17/24 23:59 23:59 23:59 23:59 Intake Total 8212 504 9519 810 Output Total 500 1050 550 Balance 980 676 593 260 Meds/Results Medications: Active Medications Generic Name Dose Route Start Last Admin Trade Name Freq PRN Reason Stop Dose Admin Acetaminophen 650 mg 12/09/24 18:53 12/12/24 22:15 Acetaminophen 325 Mg Tablet PO 650 mg Q4H PRN Administration Mild Pain (1-3) or Fever Hydrocodone Bitart/Acetaminophen 1 tab 12/14/24 11:35 12/17/24 08:52 Hydrocodone/Acetaminophen (*Crx) 5-325 Mg Tablet PO 1 tab Q6H PRN Administration Pain Rated 4-6 Albuterol/Ipratropium 3 ml 12/10/24 08:00 12/17/24 08:15 Ipratropium 0.5 Mg/Albuterol Sulfate 2.5 Mg Ampul.Neb 3 Ml INHALATION 3 ml Q6HRT MINGO Administration Alprazolam 0.5 mg 12/14/24 11:37 12/17/24 08:57 Alprazolam (*Crx) 0.5 Mg Tablet PO 0.5 mg TID PRN Administration Anxiety Azithromycin 500 mg 12/14/24 09:00 12/17/24 08:47 Azithromycin 250 Mg Tablet PO 500 mg DAILY MINGO Administration Dextrose 12.5 gm 12/10/24 03:00 Dextrose 50% 25 Gm/50 Ml Syringe IV PUSH PRN PRN Hypoglycemia Protocol Ferrous Sulfate 142 mg 12/10/24 08:00 12/17/24 08:47 Ferrous Sulfate Dried 142 Mg Tabcr PO 142 mg DAILY@0800 MINGO Administration Fluticasone Propionate 1 spray 12/10/24 09:00 12/17/24 08:49 Fluticasone Propionate 0.05% Na Spr 16 Gm Btl (*Bkc) NASAL Not Given BID MINGO Glucagon 1 mg 12/10/24 03:00 Glucagon For Inj 1 Mg Vial IM PRN PRN Hypoglycemia Protocol Glucose 15 gm 12/10/24 03:00 Glucose Oral Gel 15 Gm Of Glucse In 37.5 Gm Tube PO PRN PRN Hypoglycemia Protocol Guaifenesin 1,200 mg 12/10/24 09:00 12/17/24 08:47 Guaifenesin 12 Hr 600 Mg Tabcr PO 1,200 mg Q12HR MINGO Administration Hydralazine HCl 10 mg 12/13/24 15:23 Hydralazine Hcl 20 Mg/Ml Vial IV PUSH Q8H PRN Blood Pressure - High Dextrose 1,000 mls @ 100 mls/hr 12/10/24 03:00 Dextrose 5% 1,000 Ml IVPB PRN PRN Hypoglycemia Protocol Ceftriaxone Sodium 1 gm in 50 mls @ 100 mls/hr 12/10/24 11:55 12/17/24 08:48 Rocephin 1 Gm/Ns 50 Ml IVPB 100 mls/hr Q12HR MINGO Administration Lisinopril 5 mg 12/10/24 14:05 12/17/24 08:48 Lisinopril 5 Mg Tablet PO 5 mg QAM MINGO Administration Metoprolol Tartrate 25 mg 12/12/24 21:00 12/17/24 06:01 Metoprolol Tartrate 25 Mg Tablet PO 25 mg 07,21 MINGO Administration Ondansetron HCl 4 mg 12/09/24 18:53 12/11/24 19:06 Ondansetron Inj 4 Mg/2 Ml Vial IV PUSH 4 mg Q4H PRN Administration Nausea Oxycodone HCl 5 mg 12/10/24 10:48 12/17/24 13:39 Oxycodone Hcl (*Crx) 5 Mg Tab Ir PO 5 mg Q4H PRN Administration Pain Rated 7-10 Pantoprazole Sodium 40 mg 12/13/24 07:00 12/17/24 06:01 Pantoprazole 40 Mg Tablet PO 40 mg 0700 MINGO Administration Sodium Chloride 10 ml 12/13/24 22:00 12/17/24 13:40 Saline Lock Flush IV PUSH 10 ml Q8HR MINGO Administration Sodium Chloride 10 ml 12/13/24 15:20 Saline Lock Flush IV PUSH PRN PRN Flush Sodium Chloride 20 ml 12/13/24 15:20 Saline Lock Flush IV PUSH PRN PRN after blood draws Radiology Results: ITS Impressions Chest/Abdomen/Pelvis CT 12/09/24 17:27 IMPRESSION: Panlobular emphysematous disease. Findings within the right mid to lower lung field for which a pleural-based mass is suspected. Small right-sided pleural effusion is also noted. No acute pathology within the abdomen or pelvis. Abdomen Ultrasound 12/09/24 18:06 IMPRESSION: Limited evaluation of pancreas secondary to overlying bowel gas. No evidence of cholecystitis or cholelithiasis, consistent with recent CT examination, performed on the same day. Pulmonary Perfusion Imaging 12/10/24 15:37 IMPRESSION: 1. Intermediate probability for pulmonary embolism. 2. Small bilateral pleural effusions, right greater than left 3. Diffuse bilateral decreased washout of activity on the ventilation images consistent with obstructive pulmonary disease. Venous Doppler Study 12/11/24 08:13 IMPRESSION: Negative bilateral lower extremity venous US. No deep vein thrombosis. Chest CTA 12/13/24 16:32 IMPRESSION: No pulmonary embolus. No thoracic aortic dissection. Interval increase in the right-sided pleural effusion, now with adjacent compressive consolidation (with air bronchograms) for which pneumonia is suspected. Redemonstration of the pleural-based mass within the right middle lobe, which enhances with intravenous contrast. Redemonstration of panlobular emphysematous disease, without effusion or infiltrate in the left hemithorax. Chest X-Ray 12/14/24 12:22 IMPRESSION: Bilateral pneumonia. Underlying fibrotic/emphysematous changes Thoracentesis Ultrasound 12/14/24 12:34 IMPRESSION: 1. Successful ultrasound-guided thoracentesis yielding 500 mL of yellow fluid. Head CT 12/17/24 13:28 IMPRESSION: 1. Mild scattered periventricular predominant white matter hypoattenuation consistent with chronic small vessel ischemic disease. Of note assessment for metastatic disease is significantly limited in the absence of contrast.
--- NOTE | 2024-12-17 14:43 | PCOTNOTE ---
Attempted to see Patient, declined this session. Patient states she is exhausted and just got a cancer diagnosis , just wants to sleep for now.
--- NOTE | 2024-12-17 15:05 | P.PNIM_ITS ---
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 Qualified Code(s): D50.0 - Iron deficiency anemia secondary to blood loss (chronic) Code(s): D64.9 - Anemia, unspecified Status: Chronic (3) COPD (chronic obstructive pulmonary disease): Qualifiers: COPD type: unspecified COPD Qualified Code(s): J44.9 - Chronic obstructive pulmonary disease, unspecified Code(s): J44.9 - Chronic obstructive pulmonary disease, unspecified Status: Acute (4) Emphysema lung: Code(s): J43.9 - Emphysema, unspecified Status: Acute (5) Chronic respiratory failure with hypoxia, on home oxygen therapy: Code(s): J96.11 - Chronic respiratory failure with hypoxia; Z99.81 - Dependence on supplemental oxygen Status: Chronic Plan Lung mass and Pneumonia: Qualifiers: Laterality: bilateral Lung location: unspecified part of lung Pneumonia type: due to unspecified organism Qualified Code(s): J18.9 - Pneumonia, unspecified organism Code(s): J18.9 - Pneumonia, unspecified organism Chest CT showed emphysema disease with concerns for a pleural based mass Legionella negative. Urine Pneumococcal negative Mycoplasma negative. Thoracentesis was performed 12/15, cloudy yellow fluid drained out, fluid nucleated cell above 3000, neutrophil 24% possible empyema. Bar Back recommend continue current treatment regimen GI bleeding Fecal occult blood test positive: Code(s): R19.5 - Other fecal abnormalities Status: Acute Assessment and Plan: EGD negative for any acute findings other than gastritis. GI recommend colonoscopy in outpatient office Sepsis: Qualifiers: Sepsis type: sepsis due to unspecified organism Sepsis acute organ dysfunction status: unspecified Qualified Code(s): A41.9 - Sepsis, unspecified organism Code(s): A41.9 - Sepsis, unspecified organism Status: Resolved Acute kidney injury: Code(s): N17.9 - Acute kidney failure, unspecified Status: Resolved Assessment and Plan: Now resolved. Hyperglycemia: Code(s): R73.9 - Hyperglycemia, unspecified Status: Acute Assessment and Plan: Continue SSI Continue Hypoglycemic protocol Change diet to Diabetic diet. Hypokalemia: Code(s): E87.6 - Hypokalemia Status: Acute Assessment and Plan: stable today- Chronic obstructive pulmonary disease: Code(s): J44.9 - Chronic obstructive pulmonary disease, unspecified Status: Chronic Assessment and Plan: * Appreciate continued management per Pulmonology. * Continue above mentioned measures including monitoring, oxygen, nebs # Chronic respiratory failure with hypoxia, on home oxygen therapy: Code(s): J96.11 - Chronic respiratory failure with hypoxia; Z99.81 - Dependence on supplemental oxygen Status: Chronic Assessment and Plan: * See #7 PUlm following Continue with current antibiotics for lower respiratory tract infection. Oncology consultation. Anticipate discharge home in a day or 2. Anemia: Qualifiers: Anemia type: iron deficiency Iron deficiency anemia type: chronic blood loss Qualified Code(s): D50.0 - Iron deficiency anemia secondary to blood loss (chronic) Code(s): D64.9 - Anemia, unspecified Status: Chronic Assessment and Plan: Hemoglobin stable, continue supplemental Iron. Hypertension: Code(s): I10 - Essential (primary) hypertension Status: Acute Assessment and Plan: Continue Lisinopril and Metoprolol Time Spent With Patient Time with patient: 25 - 35 minutes Subjective Date/time seen: 12/17/24 15:05 Interval history: Patient has no new respiratory symptoms. She continues to have a right pleuritic chest pain but it is improving. She is stable. Ambulation for strength, pain control- anticipate discharge tomorrow as her son able to get her in am. Review of Systems Review of Systems: 12 systems were reviewed and are negativ e except for as per HPI. All systems reviewed & are unremarkable except as noted in HPI and below Exam Narrative: GENERAL: Pleasant, in no acute distress. Well-nourished. - EYES: EOMI. Anicteric. - HENT: Moist mucous membranes. - LUNGS: Diminished throughout with so me crackles noted RLL. - CARDIOVASCULAR: Regular rate and rhyth m. No murmur. No JVD. - ABDOMEN: Soft, non-tender and non-dist ended. No palpable masses. - EXTREMITIES: No edema. Peripheral puls es 2+. Non-tender. - NEUROLOGIC: No focal neurological defi cits. CN II-XII grossly intact. - PSYCHIATRIC: Awake, Alert and oriented x 3. Appropriate mood and affect. - SKIN: No rashes or lesions. Warm. - LYMPH: No cervical lymphadenopathy. Const: General: comfortable Objective Data Vital Signs Vital Signs: Vital Signs - 24 hr 12/16/24 19:34 12/16/24 19:34 12/16/24 19:45 Temperature Pulse Rate 85 81 Respiratory Rate 18 18 Blood Pressure Pulse Oximetry 97 Oxygen Delivery Nasal Cannula Oxygen Flow Rate 2 Fraction of Inspired Oxygen 28 12/16/24 20:35 12/16/24 20:38 12/16/24 21:47 Temperature 97.8 F Pulse Rate 88 89 Respiratory Rate 16 Blood Pressure 156/65 H Pulse Oximetry 96 96 Oxygen Delivery Nasal Cannula Oxygen Flow Rate 2 Fraction of Inspired Oxygen 12/17/24 01:35 12/17/24 01:47 12/17/24 06:01 Temperature Pulse Rate 78 76 100 Respiratory Rate 18 18 Blood Pressure Pulse Oximetry Oxygen Delivery Oxygen Flow Rate Fraction of Inspired Oxygen 12/17/24 06:44 12/17/24 08:00 12/17/24 08:17 Temperature 98.4 F Pulse Rate 72 60 Respiratory Rate 20 20 Blood Pressure 159/73 H Pulse Oximetry 98 95 95 Oxygen Delivery Nasal Cannula Nasal Cannula Oxygen Flow Rate 2 2 Fraction of Inspired Oxygen 12/17/24 08:17 12/17/24 08:24 12/17/24 13:52 Temperature 97.5 F L Pulse Rate 60 60 63 Respiratory Rate 20 20 20 Blood Pressure 160/59 H Pulse Oximetry 98 Oxygen Delivery Oxygen Flow Rate Fraction of Inspired Oxygen 12/17/24 14:43 12/17/24 14:43 12/17/24 14:56 Temperature Pulse Rate 75 75 69 Respiratory Rate 20 20 20 Blood Pressure Pulse Oximetry 97 Oxygen Delivery Nasal Cannula Oxygen Flow Rate 3 Fraction of Inspired Oxygen Intake/Output Intake/Output: Intake & Output 12/14/24 12/15/24 12/16/24 12/17/24 23:59 23:59 23:59 23:59 Intake Total 8131 550 4111 810 Output Total 500 1050 550 Balance 980 676 486 260 Meds/Results Medications: Active Medications Generic Name Dose Route Start Last Admin Trade Name Freq PRN Reason Stop Dose Admin Acetaminophen 650 mg 12/09/24 18:53 12/12/24 22:15 Acetaminophen 325 Mg Tablet PO 650 mg Q4H PRN Administration Mild Pain (1-3) or Fever Hydrocodone Bitart/Acetaminophen 1 tab 12/14/24 11:35 12/17/24 08:52 Hydrocodone/Acetaminophen (*Crx) 5-325 Mg Tablet PO 1 tab Q6H PRN Administration Pain Rated 4-6 Albuterol/Ipratropium 3 ml 12/10/24 08:00 12/17/24 14:42 Ipratropium 0.5 Mg/Albuterol Sulfate 2.5 Mg Ampul.Neb 3 Ml INHALATION 3 ml Q6HRT MINGO Administration Alprazolam 0.5 mg 12/14/24 11:37 12/17/24 08:57 Alprazolam (*Crx) 0.5 Mg Tablet PO 0.5 mg TID PRN Administration Anxiety Azithromycin 500 mg 12/14/24 09:00 12/17/24 08:47 Azithromycin 250 Mg Tablet PO 500 mg DAILY MINGO Administration Dextrose 12.5 gm 12/10/24 03:00 Dextrose 50% 25 Gm/50 Ml Syringe IV PUSH PRN PRN Hypoglycemia Protocol Ferrous Sulfate 142 mg 12/10/24 08:00 12/17/24 08:47 Ferrous Sulfate Dried 142 Mg Tabcr PO 142 mg DAILY@0800 MINGO Administration Fluticasone Propionate 1 spray 12/10/24 09:00 12/17/24 08:49 Fluticasone Propionate 0.05% Na Spr 16 Gm Btl (*Bkc) NASAL Not Given BID MINGO Glucagon 1 mg 12/10/24 03:00 Glucagon For Inj 1 Mg Vial IM PRN PRN Hypoglycemia Protocol Glucose 15 gm 12/10/24 03:00 Glucose Oral Gel 15 Gm Of Glucse In 37.5 Gm Tube PO PRN PRN Hypoglycemia Protocol Guaifenesin 1,200 mg 12/10/24 09:00 12/17/24 08:47 Guaifenesin 12 Hr 600 Mg Tabcr PO 1,200 mg Q12HR MINGO Administration Hydralazine HCl 10 mg 12/13/24 15:23 Hydralazine Hcl 20 Mg/Ml Vial IV PUSH Q8H PRN Blood Pressure - High Dextrose 1,000 mls @ 100 mls/hr 12/10/24 03:00 Dextrose 5% 1,000 Ml IVPB PRN PRN Hypoglycemia Protocol Ceftriaxone Sodium 1 gm in 50 mls @ 100 mls/hr 12/10/24 11:55 12/17/24 08:48 Rocephin 1 Gm/Ns 50 Ml IVPB 100 mls/hr Q12HR MINGO Administration Lisinopril 5 mg 12/10/24 14:05 12/17/24 08:48 Lisinopril 5 Mg Tablet PO 5 mg QAM MINGO Administration Metoprolol Tartrate 25 mg 12/12/24 21:00 12/17/24 06:01 Metoprolol Tartrate 25 Mg Tablet PO 25 mg 07,21 MINGO Administration Ondansetron HCl 4 mg 12/09/24 18:53 12/11/24 19:06 Ondansetron Inj 4 Mg/2 Ml Vial IV PUSH 4 mg Q4H PRN Administration Nausea Oxycodone HCl 5 mg 12/10/24 10:48 12/17/24 13:39 Oxycodone Hcl (*Crx) 5 Mg Tab Ir PO 5 mg Q4H PRN Administration Pain Rated 7-10 Pantoprazole Sodium 40 mg 12/13/24 07:00 12/17/24 06:01 Pantoprazole 40 Mg Tablet PO 40 mg 0700 MINGO Administration Sodium Chloride 10 ml 12/13/24 22:00 12/17/24 13:40 Saline Lock Flush IV PUSH 10 ml Q8HR MINGO Administration Sodium Chloride 10 ml 12/13/24 15:20 Saline Lock Flush IV PUSH PRN PRN Flush Sodium Chloride 20 ml 12/13/24 15:20 Saline Lock Flush IV PUSH PRN PRN after blood draws Radiology Results: ITS Impressions Chest/Abdomen/Pelvis CT 12/09/24 17:27 IMPRESSION: Panlobular emphysematous disease. Findings within the right mid to lower lung field for which a pleural-based mass is suspected. Small right-sided pleural effusion is also noted. No acute pathology within the abdomen or pelvis. Abdomen Ultrasound 12/09/24 18:06 IMPRESSION: Limited evaluation of pancreas secondary to overlying bowel gas. No evidence of cholecystitis or cholelithiasis, consistent with recent CT examination, performed on the same day. Pulmonary Perfusion Imaging 12/10/24 15:37 IMPRESSION: 1. Intermediate probability for pulmonary embolism. 2. Small bilateral pleural effusions, right greater than left 3. Diffuse bilateral decreased washout of activity on the ventilation images consistent with obstructive pulmonary disease. Venous Doppler Study 12/11/24 08:13 IMPRESSION: Negative bilateral lower extremity venous US. No deep vein thrombosis. Chest CTA 12/13/24 16:32 IMPRESSION: No pulmonary embolus. No thoracic aortic dissection. Interval increase in the right-sided pleural effusion, now with adjacent compressive consolidation (with air bronchograms) for which pneumonia is suspected. Redemonstration of the pleural-based mass within the right middle lobe, which enhances with intravenous contrast. Redemonstration of panlobular emphysematous disease, without effusion or infiltrate in the left hemithorax. Chest X-Ray 12/14/24 12:22 IMPRESSION: Bilateral pneumonia. Underlying fibrotic/emphysematous changes Thoracentesis Ultrasound 12/14/24 12:34 IMPRESSION: 1. Successful ultrasound-guided thoracentesis yielding 500 mL of yellow fluid. Head CT 12/17/24 13:28 IMPRESSION: 1. Mild scattered periventricular predominant white matter hypoattenuation consistent with chronic small vessel ischemic disease. Of note assessment for metastatic disease is significantly limited in the absence of contrast. Quality VTE Prophylaxis VTE prophylaxis: mechanical ordered
[2024-12-18 01:39] VITALS: PULSE 77; RESP 20
[2024-12-18] MEDS: IPRATROPIUM 0.5 MG/ALBUTEROL SULFATE 2.5 MG AMPUL.NEB 3 ML INHALATION ×2 (01:39→07:54)
[2024-12-18 01:49] VITALS: PULSE 75; RESP 20
[2024-12-18] MEDS: ALPRAZolam (*CRX) 0.5 MG TABLET PO ×2 (02:49→08:16)
[2024-12-18] MEDS: HYDROcodone/acetaminophen (*CRX) 5-325 MG TABLET 1 TAB PO ×2 (02:49→08:20)
[2024-12-18 05:24] VITALS: BP 135/53; PULSE 60; RESP 14; TEMP 36.6; O2SAT 100
[2024-12-18] MEDS: SALINE LOCK FLUSH 10 ML IV PUSH (06:32)
[2024-12-18] MEDS: METOPROLOL TARTRATE 25 MG TABLET PO (06:32)
[2024-12-18] MEDS: PANTOPRAZOLE 40 MG TABLET PO (06:32)
[2024-12-18 06:38] LABS: Hematocrit 32.8 % (37.0-47.0); Hemoglobin 9.2 g/dL (12.0-15.0); Mean Corpuscular Hemoglobin 24.2 pg (26-34); Mean Corpuscular Volume 86.3 fl (80-100); Mean Platelet Volume 8.6 fl (7.4-10.4); Platelet Count Result 404 k/mm3 (150-375); Red Cell Distribution Width 17.9 % (11.5-14.5); White Blood Count 8.5 K/mm3 (4.5-10.0)
[2024-12-18 06:51] LABS: Anion Gap 2 mmol/L (4-12); Blood Urea Nitrogen 12 mg/dL (7-17); Calcium 8.9 mg/dL (8.4-10.2); Carbon Dioxide 37 mmol/L (22-30); Chloride 101 mmol/L (98-107); Estimated CRCL calculation 92 ml/min; Estimated Glomerular Filt Rate > 60; Glucose 98 mg/dL (65-110); Potassium 3.5 mmol/L (3.4-5.0); Sodium 140 mmol/L (137-145)
--- NOTE | 2024-12-18 07:41 | P.DS_ITS ---
DS: Admitting Diagnosis Discharge Date 12/18 Admitting Diagnosis sob DS: Discharge Diagnosis Discharge Diagnosis (1) GIB (gastrointestinal bleeding): Qualifiers: GI bleed type/associated pathology: melena Qualified Code(s): K92.1 - Melena Code(s): K92.2 - Gastrointestinal hemorrhage, unspecified Status: Acute (2) Anemia: Qualifiers: Anemia type: iron deficiency Iron deficiency anemia type: chronic blood loss Qualified Code(s): D50.0 - Iron deficiency anemia secondary to blood loss (chronic) Code(s): D64.9 - Anemia, unspecified Status: Chronic (3) COPD (chronic obstructive pulmonary disease): Qualifiers: COPD type: unspecified COPD Qualified Code(s): J44.9 - Chronic obstructive pulmonary disease, unspecified Code(s): J44.9 - Chronic obstructive pulmonary disease, unspecified Status: Acute (4) Emphysema lung: Code(s): J43.9 - Emphysema, unspecified Status: Acute (5) Chronic respiratory failure with hypoxia, on home oxygen therapy: Code(s): J96.11 - Chronic respiratory failure with hypoxia; Z99.81 - Dependence on supplemental oxygen Status: Chronic (6) Non-small cell lung cancer: Code(s): C34.90 - Malignant neoplasm of unspecified part of unspecified bronchus or lung Status: Acute DS: Summary Hospital Course Hospital Course: This 69-year-old female with a history of COPD and chronic hypoxemic respiratory failure on supplemental oxygen presented with right pleuritic chest pain, leukocytosis, and new lung infiltrates/consolidation in the right subpleural area. Her presentation, along with diagnostic studies, suggests community- acquired pneumonia, given her positive response to antibiotics and declining white blood cell count. The patient continues to experience right pleuritic chest pain, necessitating the use of opiates for improved pain management. WBC is back into the normal range although the patient continues to have a right pleuritic chest pain related to peripheral location of pneumonia. Urine antigen negative for community-acquired pneumonia. Pneumonia- Chest CT showed emphysema disease with concerns for a pleural based mass Legionella negative. Urine Pneumococcal negative Mycoplasma negative. Thoracentesis was performed 12/15, cloudy yellow fluid drained out, fluid nucleated cell above 3000, neutrophil 24% possible empyema. [employer] Animal Caretaker was consulted and followed pt. Pt was on ceftriaxone. and azithromycin. Completed th course. She still gets sob with exertion but overall feeling better. Hem/onc saw pt. She will follow-up with DR Lozano in the office for initiation of chemotherapy, order the PET scan as an outpatient. CT scan of the head ordered. Surgery was consulted for Port placement- will do it as an outpt. Scheduled for 10:30 a.m. on Sunday December 22, 2024. Status at Discharge Functional status at discharge: uses cane/walker Overall status at discharge: patient is progressing back to baseline Time Spent with Patient Time attestation: Total time spent providing and/or coordinating discharge services: Time spent: Greater than 30 minutes Exam Narrative: GENERAL: Pleasant, in no acute distress. Well-nourished. resting in bed. - EYES: EOMI. Anicteric. - HENT: Moist mucous membranes. - LUNGS: Diminished throughout with so me crackles noted RLL. - CARDIOVASCULAR: Regular rate and rhyth m. No murmur. No JVD. - ABDOMEN: Soft, non-tender and non-dist ended. No palpable masses. - EXTREMITIES: No edema. Peripheral puls es 2+. Non-tender. - NEUROLOGIC: No focal neurological defi cits. CN II-XII grossly intact. - PSYCHIATRIC: Awake, Alert and oriented x 3. Appropriate mood and affect. - SKIN: No rashes or lesions. Warm. - LYMPH: No cervical lymphadenopathy. Const: General: comfortable DS: Data Data Completed and Pending Completed studies during hospitalization: Pending at discharge 12/10/24 12:35 Surgical [PTH] Routine 12/14/24 09:01 Cytology [PTH] Routine Labs on day of discharge: Labs from last 24 hours 12/18/24 06:29 WBC 8.5 RBC 3.80 L Hgb 9.2 L Hct 32.8 L MCV 86.3 MCH 24.2 L MCHC 28.0 L RDW 17.9 H Plt Count 404 H MPV 8.6 Sodium 140 Potassium 3.5 Chloride 101 Carbon Dioxide 37 H Anion Gap 2 L BUN 12 Creatinine 0.40 L Estim Creat Clear Calc 92 Estimated GFR > 60 Glucose 98 Calcium 8.9 Preliminary micro results at discharge 12/14/24 11:52 Anaerobic Culture - Preliminary Pleural Fluid Aerobic Culture - Preliminary Discharge Plan Discharge Attending physician on discharge: Malachi Ralph Consulting providers: Saeid Penn; Abdias Lozano; Merlin Ortiz Discharging Clinician: Irina Bear Patient Disposition: Home Health Service Activity: january shower Diet: regular Discharge Instructions: You completed antibiotic treatment. Please use breathing tx at home if needed when you get short of breath. Per Care Coordination: [facility] [phone] has been arranged for physical and occupational therapy. They will contact you regarding you first visit. Placement vascular access for chemotherapy: Outpatient Port-A-Cath placement has been arranged for 10:30 a.m. SaturdayDecember 22. Preoperative nursing will call and give instructions. Please arrive at the hospital no later than 8:30 on December 22. Do not eat or drink anything after midnight 12/21/2024 Surgery will be performed by Dr. Merlin ortiz. Patient Instructions: Antibiotic Form, Gastrointestinal Bleeding (GEN), Chronic Pain (GEN), Near Syncope (GEN), Anemia (GEN), Pneumonia (GEN), Suicide Preve ntion (GEN), Depression Management for Older Adults (GEN) Patient Language: Macedonian Stand Alone Forms: General Discharge Information Follow-up/Referrals: Abdias Lozano MD [Physician] - 2 Weeks Merlin Ortiz MD [Physician] - 1 Week Rahat Jurado MD [Primary Care Provider] - 2 Weeks Discharge Medications: New hydrocodone-acetaminophen 5-325 mg Tablet 1 tablet PO Q6H PRN (Reason: Pain Rated 4-6) Qty: 12 0RF lisinopril 5 mg Tablet 5 mg PO QAM Qty: 90 0RF (DME) nebulizer and compressor Device See Rx Instructions .Route Qty: 1 0RF Rx Instructions: As directed ipratropium-albuterol 0.5 mg-3 mg(2.5 mg base)/3 mL Solution For Nebulization 3 ml inhalation Q6HRT Qty: 10 0RF lidocaine 5 % adhesive patch,medicated 1 patch topical DAILY Qty: 30 0RF Rx Instructions: leave on most painful area for up to 12 hrs Continued cyclobenzaprine 10 mg tablet 5 - 10 mg PO TID PRN (Reason: muscle spasm) Qty: 90 5RF fluticasone propionate [Flonase Allergy Relief] 50 mcg/actuation spray,suspension 1 spray intranasal BID Qty: 16 5RF Rx Instructions: administer into each nostril lisinopril 5 mg tablet 5 mg PO DAILY Qty: 30 11RF omeprazole 40 mg capsule,delayed release(DR/EC) 40 mg PO DAILY Qty: 30 11RF metoprolol tartrate 25 mg tablet 25 mg PO BID Qty: 60 11RF Migraine Relief 250-250-65 mg tablet 2 tablet PO Q6H PRN (Reason: migraine headache) [id number] 10-20-650 mg/20 mL liquid 20 ml PO Q6H PRN (Reason: cold symptoms) Slow Fe 137 mg (45 mg iron) tablet extended release 137 mg PO DAILY albuterol sulfate 90 mcg/actuation HFA aerosol inhaler 1 - 2 inh inhalation Q4-6H PRN (Reason: shortness of breath or wheezing) Qty: 8.5 0RF Date of admission: 12/10/24 09:00 Primary Care Provider: Rahat Jurado Admitting Provider: Ariel Tan Attending physician on admission: Jennifer Moya Condition: Stable Quality VTE Prophylaxis VTE prophylaxis: mechanical ordered Hospitalist MIPS Heart Failure (Exclusion) Patient has history of Heart Transplant or Left Ventricular Assistive Device?: No IF YES, STOP HERE Heart Failure (Qualifier) Patient has current or prior documentation of LVEF less than or equal to 40%, or mod/servere depressed LVSF?: No IF NO, STOP HERE
[2024-12-18 07:54] VITALS: PULSE 76; RESP 22; O2SAT 97
[2024-12-18 08:00] VITALS: O2SAT 94
[2024-12-18 08:05] VITALS: PULSE 74; RESP 20
[2024-12-18] MEDS: lisinopriL 5 MG TABLET PO (08:16)
[2024-12-18] MEDS: AZITHROMYCIN 250 MG TABLET 500 MG PO (08:16)
[2024-12-18] MEDS: guaiFENesin 12 HR 600 MG TABCR 1200 MG PO (08:16)
[2024-12-18] MEDS: FERROUS SULFATE DRIED 142 MG TABCR PO (08:16)
--- NOTE | 2024-12-18 12:28 | PC.NURSE ---
Home med returned to patient at discharge.
[2024-12-19 18:49] LABS: Albumin Pleural Fluid 1.3 g/dL; Amylase, Pleural Fluid 26 U/L; Glucose Pleural Fluid 124 mg/dL; LDH Pleural Fluid 113 U/L; Total Protein Pleural Fluid <3.0 g/dL
== END 2024-12-18 12:54 | disposition home health service (06) | DRG 871 ==
LOC: ANHED 14:52 → ANHIMU 20:23 → ANH3MEDSUR 12-11 13:43
PROVIDERS: Emergency Medicine; Internal Medicine Gastroenterology; Internal Medicine Pulmonary Disease; Nurse Practitioner Adult Health; Physician Assistant; Admitting Provider Hospitalist; Emergency Provider Student in an Organized Health Care Education/Training Program; PCP Family Medicine; Visit Provider Nurse Practitioner
PROC: 0DJ08ZZ Inspection of Upper Intestinal Tract, Via Natural or Artificial Opening Endoscopic (ICD-10-PCS; principal; 2024-12-10 14:00)
DX: A41.9 Sepsis, unspecified organism (principal); J18.9 Pneumonia, unspecified organism; J96.11 Chronic respiratory failure with hypoxia; N17.9 Acute kidney failure, unspecified; K92.1 Melena; J44.0 Chronic obstructive pulmonary disease with (acute) lower respiratory infection; J44.9 Chronic obstructive pulmonary disease, unspecified; D64.9 Anemia, unspecified; D50.0 Iron deficiency anemia secondary to blood loss (chronic); E11.65 Type 2 diabetes mellitus with hyperglycemia; I10 Essential (primary) hypertension; I25.10 Atherosclerotic heart disease of native coronary artery without angina pectoris; J43.1 Panlobular emphysema; R55 Syncope and collapse; R91.8 Other nonspecific abnormal finding of lung field; Z99.81 Dependence on supplemental oxygen; Z95.4 Presence of other heart-valve replacement; Z87.891 Personal history of nicotine dependence; Z20.822 Contact with and (suspected) exposure to COVID-19
CPT/HCPCS: 32555; 36415; 36430; 36569; 70450; 71045; 71250; 71275; 74176; 76705; 78582; 80048; 80053; 82042; 82150; 82945; 82948; 83036; 83605; 83615; 83690; 83735; 83880; 83986; 84157; 84484; 85014; 85018; 85025; 85027; 85055; 85610; 85730; 86738; 86850; 86900; 86901; 86923; 87040; 87070; 87075; 87205; 87449; 87637; 87641; 87899; 88108; 88305; 88342; 89051; 93970; 94640; 96361; 96365; 96367; 96375; 96376; 97110; 97161; 97165; 97530; 97535; 99285; A9270; A9540; A9558; C1751; G0378; J0456; J0696; J1200; J1815; J1940; J2270; J2405; J2470; J2919; J3010; J3480; J7030; J7040; J7050; J7120; P9016; Q9967

== ENCOUNTER 2024-12-22 00:39 | Day surgery (SDC) | payer MEDICARE, SELFPAY ==
[2024-12-21 10:47] VITALS: BMI 22.2
--- NOTE | 2024-12-21 11:19 | PC.NURSE ---
Addendum entered by Chelsea Galarza RN 12/21/24 11:28: PT STATES THAT SHE DOES NOT HAVE INHALERS OR NEBULIZER MACHINE YET(SINCE DISCHARGE 12/18/24). STATES SON PICKED UP NEBULIZER MEDICATION FROM PHARMACY. PT STATES THAT SHE WILL CALL [facility] NOW TO ARRANGE COREMAKER OF INHALERS AND NEB MACHINE. STATES THAT HOME HEALTH IS SEEING HER CURRENTLY. Original Note: Report to the Outpatient Waiting Room, entrance under the green pavilion located off [facility], at time ___8:30AM____ on date __12/22/24 . Planned Procedure Time: ___10:30AM .? Time changes happen often and if your time is changed the preop area will call you the afternoon before. - You and your visitor will be asked to self-screen and do not enter if you have any COVID symptoms. Please call surgeon if you need to reschedule. - A mask is optional within the hospital at this time. Patients may have clear liquids (water, carbonated beverages, clear teas, apple juice) until 3 hours prior to surgery (7:30AM) with a maximum of 20 ounces. - No food from midnight until time of surgery and no smoking, or chewing tobacco (or any form of nicotine). No chewing gum, candy or mints. Take only the following medications with a SIP of water on the morning of surgery: METOPROLOL. MAY TAKE ALPRAZOLAM AND HYDROCODONE NEEDED. USE INHALER AND/OR NEBULIZER MORNING OF SURGERY. WEAR O2 3L BRASS RECLAIMER. DO NOT STOP ANY OF YOUR OTHER PRESCRIPTION MEDICATIONS PRIOR TO SURGERY EXCEPT THE FOLLOWING Hold all vitamins and supplements for 3 days per anesthesiologist.-STARTING NOW. Medications to discontinue per physician Date to take last dose Please no make-up, nail burmese, hairspray, perfume, deodorant, or body powder the day of surgery.? No jewelry (including any body piercings) or valuables the day of surgery, leave them at home.? Please take a shower or bath the night before, or the morning of, surgery with an antibacterial soap.? Wear comfortable, loose fitting clothing.? Children are encouraged to wear pajamas. - Jewelry must be removed prior to entering the operating room.? Rings and piercings that are not removed may be cut off. - The hospital will not accept responsibility for valuables.? - Please leave all valuables, including medications, at home the day of surgery. If you are going home after surgery, a licensed refrigerated company driver must drive you home.? - NO public transportation without another adult if you receive anesthesia. - We recommend that an adult stay with you for 24 hours following discharge. - We also recommend that you do not drive, make important decision, drink alcoholic beverages, or take any drugs that were not prescribed by your health care provider for at least 24 hours after your discharge time. Follow any additional instructions given to you from your surgeon. Telephone instructions given to ___PATIENT and asked if any additional questions and then verbalized understanding. Patient advised to call surgeon office or pre surgery nurse liaison [phone] if any additional questions.
--- NOTE | ~2024-12-22 | XR_ITS ---
EXAMINATION: XR chest port-a-cath/central DATE: 12/22/2024 11:33 INDICATION: Port catheter insertion TECHNIQUE: frontal view of the chest was obtained. COMPARISON: Chest radiograph and CT dated 12/13/2024 FINDINGS: Interval placement of a left internal jugular central venous port catheter with distal tip at the sup erior cavoatrial junction. Focal consolidation at the lateral right mid and lower lung zones consiste nt with pneumonia. Increased interstitial pattern in the bilateral lower lung zones which could also be related to pneumonia or coincidental mild pulmonary edema. Calcified nodules at the left lower willy g zone consistent with old granulomatous disease. No pleural effusion or pneumothorax. Heart size is normal. Aortic valve repair. The cardiomediastinal silhouette is normal. Visualized bones and soft ti ssues are unremarkable. IMPRESSION: 1. Left internal jugular central venous port catheter tip at the superior cavoatrial junction. No pne umothorax. 2. Persistent airspace opacities concerning for pneumonia in the right mid to lower lung zones and in creased interstitial pattern at the bilateral lower lung zones which could represent additional pneum onia or coincidental mild pulmonary edema. Reviewed, dictated and finalized at location A. IMPRESSION: 1. Left internal jugular central venous port catheter tip at the superior cavoa trial junction. No pneumothorax. 2. Persistent airspace opacities concerning for pneumonia in the right mid to l ower lung zones and increased interstitial pattern at the bilateral lower lung zones which could represent additional pneumonia or coincidental mild pulmonary edema.
--- NOTE | ~2024-12-22 | XR_ITS ---
XR fl guide central line place Indication: Insertion of portacatheter TECHNIQUE: Fluoroscopy used during Insertion of portacatheter performed by [Merlin Campbell MD] on 12/22/2024. 183 seconds of fluoroscopy with 3 fluoroscopic images captured. FINDINGS: Correlate with procedure note. IMPRESSION: Fluoroscopy used during Insertion of portacatheter. Reviewed, dictated and finalized at location A.
--- OUTSIDE RECORDS SUMMARY | 2024-12-22 00:43 | XMS_ITS | Clinical Summary ---
Author Organization [facility] Address [address], [facility] [address] [place] [address] Phone Care Team Providers Care Technical Product Manager Name Role Phone Usama Jc MD Unavailable [phone] Monet Graham MD Primary Care Provider + [...] on file Legal Sex Female 9:37 AM [employer] Gender Identity Not on file Sexual Orientation Not on file Last Filed Vital Signs Vital Sign Reading Time Taken Comments Blood Pressure 112/70 10/24/2022 3:09 PM [employer] Pulse 59 10/24/2022 3:09 PM [employer] Temperature 36.7 C (98.1 F) 10/24/2022 3:09 PM [employer] Respiratory Rate - - Oxygen Saturation 100% 10/24/2022 3:09 PM [employer] Inhaled Oxygen Concentration - - Weight 54 kg (119 lb) 10/24/2022 3:09 PM [employer] Height 160 cm (5' 3 ) 10/24/2022 3:09 PM [employer] Body Mass Index 21.08 10/24/2022 3:09 PM [employer]ER Plan of Treatment Health Maintenance Due [...] complete this topic Insurance MEDICARE Care Teams Technical Product Manager Relationship Specialty Start Date End Date Monet Graham MD [address] [place] [address] PCP - General Emergency Medicine 10/15/22 Usama Jc MD [address] [address] Consulting Physician Oncology 10/15/22
--- OUTSIDE RECORDS SUMMARY | 2024-12-22 00:43 | XMS_ITS | Clinical Summary ---
Author Organization [facility] Caption Data Address [address] [place] [address] Care Team Providers Care Commercial Retoucher Name Role Phone Raya Merlos Primary Care Provider [phone] Source Comments [facility] Caption Data,non-owned Affiliates and Associated Physician Practices is amultiple site organization consisting of ambulatory clinics and hospital sitesin [place], [place], [place] and [place]. This disclosure is being madepursuant to the Care Everywhere program and may not contain all information available regarding this patient. Last updated 18.[facility] Caption Data Allergies Active Allergy Reactions Criticality Noted Date [...] 90 tablet 1 06/20/2023 Active HYDROcodone-aceta minophen (Clark) 5-325 MG tabletIndications :Chronic pain of both [...] Date Recorded PHQ2 TOTAL SCORE 2 03/20/2023 [facility] [place] of Occupat ional Health - Occupational Stress [...] place to sleep or slept in a jail (including now)? Patient unable to answer 09/05/2023 Sex and Gender Information Value Date Recorded Sex Assigned at Not on file Gender Identity Not on file Sexual Orientation Not on file Last Filed Vital Signs Vital Sign Reading Time Taken Comments Blood Pressure 90/57 09/11/2023 7:13 AM SADDLE STITCHER Pulse 96 09/11/2023 7:13 AM SADDLE STITCHER Temperature 36.9 C (98.4 F) 09/11/2023 7:13 AM SADDLE STITCHER Respiratory Rate 18 09/10/2023 11:2 7 PM SADDLE STITCHER Oxygen Saturation 98% 09/11/2023 7:13 AM SADDLE STITCHER Inhaled Oxygen Concentration 50% 02/18/2021 8 :35 AM CDT Weight 53.5 kg (117 lb 15.1 oz) 09/06/2023 4:33 AM SADDLE STITCHER Height 160 cm (5' 3 ) 09/05/2023 1:11 AM SADDLE STITCHER Body Mass Index 20.89 09/05/2023 1:11 AM SADDLE STITCHER Plan of Treatment Health Maintenance Due Date [...] BLOOD FECES IMMUNOASSAY STAT 09/04/2023 10:00 PM SADDLE STITCHER from Last 3 Months or Most Recently Relevant to Health Maintenance Results * OCCULT BLOOD FECES IMMUNOASSAY (09/04/2023 10:00 PM SADDLE STITCHER) Pathologist [facility] Occult Blood Immunoassay Negative Negative 09/04/2023 10:17 PM SADDLE STITCHER [facility] Stool STOOL SPECIMEN / Unknown Collection / Unknown 09/04/2023 10:00 PM SADDLE STITCHER 09/04/2023 10:05 PM SADDLE STITCHER Monet Graham MD LAB - MICROBIOLO GY ORDERABLES Performing Organization Address [facility]/State/ZIP Co de Phone Number [facility] [address] from Last 3 Months or Most [...] 8:17 PM 08/11/2014 11:23 AM Care Teams Commercial Retoucher Relationship Specialty Start Date End Date Raya Merlos PA [address] [place] [phone] PCP - General Physician Swimming Pool Salesperson 02/23/21
--- OUTSIDE RECORDS SUMMARY | 2024-12-22 00:43 | XMS_ITS | Clinical Summary ---
Author Organization [facility] Address [facility] [place] [address] Care Team Providers Care Infant And Toddler Teacher Name Role Phone Raya Merlos Primary Care Provider [phone] Allergies Active Allergy Reactions Criticality Noted Date [...] (02/26/2023): Added automatically from request for surgery [id number] Iron deficiency anemia 11/09/2022 Acute blood loss anemia 07/18/2022 Upper GI bleed 07/18/2022 Atherosclerosis of aorta 09/25/2019 Overview (03/08/2023): 12.31.19 CT Abdomen & Pelvis Atherosclerotic nonaneurysmal abdominal aorta Generalized anxiety disorder 08/10/2014 Low back pain 08/10/2014 Overview (03/08/2023): OA (osteoarthritis) 08/10/2014 Pulmonary emphysema ([facility]/HCC [facility]/HCC) 08/10/2014 Overview (03/08/2023): Family History Medical History [...] often do you attend chur ch or rastafarian services? Never 03/21/2023 Do you belong to any clubs o r organizations such as sikh groups, unions, fraternal or athletic groups, or [...] Recorded Patient Health Questionnaire-2 Score 0 03/21/2023 [facility] [place] of Occupat ional Health - Occupational Stress [...] place to sleep or slept in a fdc (including now)? No 03/21/2023 Comments No Sex [...] Scan (General) 2022 ASCVD LDL 02/25/2024 02/24/2023 COVID-19 Vaccine (2 - 2023-2 5 season) 2024 03/29/2021 Influenza Adult (#1) 2024 09/20/2019, 07/09/2014 Colorectal Cancer Screening FIT/FOBT (1 Year) 09/04/2024 09/04/2023, 03/21/2023, 02/24/2023 DTaP, Tdap and Td Vaccines ( 2 [...] upon discharge from hospital Lifestyle No Sheyla Torres, ENGINE ASSEMBLY SUPERVISOR Health - patient able to perform ADLs independently Lifestyle No John Bell, RN Medical Devices Implanted Type Area Chief Deputy Clerk/Bailiff Device Identifier Shelf Expiration Date Model / Serial / Lot Aortic Valve (Medtronic) Implant- [id number] Implanted:Qty: 1 on 03/06/2023 by Shahid Calderon MD Valve Implant Aorta [employer] 11/19/2024 [id number]- [id number] / [id number] / Procedures Procedure Name Priority Date/Time Associated Diagnosis Comments OCCULT BLOOD, FECES STAT 03/21/2023 5 :30 PM CDT LIPID PANEL STAT 02/24/2023 10:45 AM CDT from Last 3 Months or Most Recently Relevant to Health Maintenance Results * OCCULT BLOOD, FECES (03/21/2023 5:30 PM CDT) OCCULT BLOOD FECAL POSITIVE 03/21/2023 6:30 PM CDT [facility] STOOL SPECIMEN / Unknown 03/21/2023 5:30 PM CDT Wilbert BUENO BODY FLUIDS AND STOOLS ORD ERABLES Final Result [facility] [address] [id number], [place] [phone] * (ABNORMAL) LIPID PANEL (02/24/2023 10:45 AM CDT) CHOLESTEROL 203(H) <200 MG/DL 02/24/2023 3:24 PM CDT [facility] TRIGLYCERIDES 75 <150 MG/DL 02/24/2023 3:24 PM CDT [facility] HDL 62 >40.0 MG/DL 02/24/2023 3:24 PM CDT [facility] LDL (CALCULATED) 126(H) <100 MG/DL 02/24/2023 3:24 PM CDT [facility] NON HDL CHOLESTEROL 141(H) <130 MG/DL 02/24/2023 3:24 PM CDT [facility] CHOL/HDL RATIO 3.3 0.0 - 4.5 02/24/2023 3:24 PM CDT [facility] VLDL CALCULATION 15 5 - 55 MG/DL 02/24/2023 3:24 PM CDT [facility] LIPID INTERPRETATION 02/24/2023 3:24 PM CDT [facility] Comment: NIH CONCENSUS REPORT RECOMMENDATIONS: ADULT CHILD LOW RISK: CHOLESTEROL <200 <170 TRIGLYCERIDE <150 --- HDL >=60 --- LDL <100 <110 BORDERLINE: CHOLESTEROL 200-239 170-199 TRIGLYCERIDE 150-199 --- HDL 40-59 --- LDL 100-159 110-129 HIGH RISK: CHOLESTEROL >=240 >=200 TRIGLYCERIDE >=200 --- HDL <40 --- LDL >=160 >=130 02/24/2023 10:4 5 AM CDT Mckenzie Neil MD LABORATORY Final Result [facility] [address] [place] [address], from Last 3 Months or Most Recently Relevant to Health [place] [id number] Advance Directives * Full Code (Latest Code [...] 12:54 PM 03/01/2023 8:45 PM Care Teams Infant And Toddler Teacher Relationship Specialty Start Date End Date Raya Merlos PA [address] [place] [phone] PCP - General PHYSICIAN ACCOUNT SUPPORT REP 03/06/23
--- OUTSIDE RECORDS SUMMARY | 2024-12-22 00:43 | XMS_ITS | Encounter Summary ---
Author Organization [facility] Address [address] [place] [address] Care Team Providers Care First Officer And Flight Instructor Name Role Phone Raya Merlos Primary Care Provider Karin Alvarado MA Unavailable [phone] Karin Rosen Unavailable Reason for Visit * Reason Onset Date Comments General 11/29/2023 Encounter Details Date Type Department Care Team (Late st Contact Info) Description 11/29/2023 Telephone [facility] - Family Medicine [address] [place] [phone] Raya Merlos PA [address] [place] [phone] General Social History Tobacco Use [...] place to sleep or slept in a penitentiary (including now)? Patient unable to answer 09/05/2023 [...] with a new provider Dr Jurado in [facility] she has an appt needs refills until she sees new provider * Telephone Encounter - Rupali Vaughn CNA - 11/29/2023 3:25 PM EDGE FINISHER [facility] was calling needing refill on Omeprazole, lisinopril, tizanidine, ferrous sulfate, amitriptyline. FINISHER documented in this encounter Plan of Treatment Not on file documented as of this encounter Visit Diagnoses Not on filedocumented in this encounter Additional Health Concerns Infection Onset Date Last Indicated Resolved Time ESBL GNR Comment:Urine 09/08/23; 09/08/2023 09/08/2023 documented as of this encounter Care Teams First Officer And Flight Instructor Relationship Specialty Start Date End Date Raya Merlos PA [address] [place] [phone] PCP - General Physician Repeat Photocomposing Machine Operator 02/23/21 Karin Alvarado MA Care Coordination Specialist Care Management 01/14/24 02/28/24 Karin Rosen Care Coordination Specialist Care Management 07/24/24 09/07/24 documented as of this encounter
[2024-12-22 07:55] VITALS: BP 110/61; PULSE 76; RESP 16; TEMP 36.6; O2SAT 97
[2024-12-22] MEDS: LACTATED RINGERS 1,000 ML 30 ML IV CONT (09:15)
[2024-12-22] MEDS: KETOROLAC 15 MG/ML VIAL (*BKC) IV PUSH (09:20)
--- NOTE | 2024-12-22 09:57 | WPDANESEPPF ---
Anes - Initial Pre Proc Eval Procedure: Operation Date: 12/22/24 10:30 Proposed Procedures p Insertion Frannie Cath with Fluoroscopy - Merlin Campbell MD Date/Time: 12/22/24 09:57 Surgeon: Merlin Campbell MD Pre Op Diagnosis: Lung CA Patient Data Age: 69 Gender: F Height: 1.6 m Weight: 57.6 kg Last Vital Signs Temp 36.6 C 12/22/24 07:55 Pulse 76 12/22/24 07:55 Resp 16 12/22/24 07:55 BP 110/61 12/22/24 07:55 Pulse Ox 97 12/22/24 07:55 O2 Del Method Nasal Cannula 12/22/24 07:55 O2 Flow Rate 3 12/22/24 07:55 Allergies Allergy/AdvReac Type Severity Reaction Status Date / Time iohexol (From contrast - CT, AdvReac FLUSHED, Verified 12/22/24 08:30 X-RAY) HOT FEELING Home Medications ?Medication ?Instructions ?Recorded ?Confirmed ?Type cyclobenzaprine 10 mg tablet 5 - 10 mg (0.5 - 1 x 10 mg) PO TID 01/03/24 12/22/24 Rx PRN muscle spasm #90 tabs lisinopril 5 mg tablet 5 mg PO DAILY #30 tabs 01/03/24 12/21/24 Rx metoprolol tartrate 25 mg tablet 25 mg PO BID #60 tabs 01/03/24 12/22/24 Rx omeprazole 40 mg capsule,delayed 40 mg PO DAILY #30 caps 01/03/24 12/22/24 Rx release ferrous sulfate 137 mg (45 mg 137 mg PO DAILY 01/06/24 12/22/24 History iron) tablet,extended release (Slow Fe) alprazolam 0.5 mg tablet 0.5 mg PO TID PRN Anxiety #15 tabs 12/18/24 12/22/24 Rx hydrocodone 5 mg-acetaminophen 325 1 tablet PO Q6H PRN Pain Rated 4-6 12/18/24 12/22/24 Rx mg tablet #12 tabs lidocaine 5 % topical patch 1 patch topical DAILY #30 ea 12/18/24 12/21/24 Rx lisinopril 5 mg tablet 5 mg PO QAM #90 tabs 12/18/24 12/22/24 Rx nebulizer and compressor #1 ea 12/18/24 12/21/24 Rx albuterol sulfate 90 mcg/actuation 1 - 2 inh inhalation Q4-6H PRN 12/21/24 12/22/24 Rx aerosol inhaler shortness of breath or wheezing #8.5 grams fluticasone propionate 50 1 spray intranasal BID PRN nasal 12/21/24 12/21/24 History mcg/actuation nasal congestion spray,suspension (Flonase Allergy Relief) ipratropium 0.5 mg-albuterol 3 mg 3 ml inhalation Q6HRT PRN 12/21/24 12/22/24 History (2.5 mg base)/3 mL nebulization shortness of breath or wheezing soln Patient hx anesthesia problems: none Family hx anesthesia problems: none Results Review: All pre-operative results and documents have been reviewed as part of the pre-operative evaluation. [facility] Past Medical History Medical History Hypokalemia Chronic respiratory failure with hypoxia, on home oxygen therapy Chronic obstructive pulmonary disease Bleeding gastric ulcer Hypertension History of blood transfusion Seasonal allergies Tension headache Depression O2 dependent Cervicalgia Low back pain Heart disease Migraines Anxiety Anemia Surgical History Surgical History History of transcatheter aortic valve implantation (REYNA) (2022) via right neck History of laparoscopy History of esophagogastroduodenoscopy (EGD) History of (1980) Family History Family History Father Alcoholism Heart disease Hypertension Grandparent Carcinoma of colon Acute myocardial infarction Social History Social History Social History: Surrogate medical decision maker: Shara Martin, rosa Code status: Full code. Smoking packs per day: 1 Smoking cigarettes per day: 20.0 Years smoked: 50 Smoking pack-years: 50.00 Smoking status: Former smoker Tobacco type: cigarettes Smoking end date: 09/23/23 Alcohol intake: never Substance use: never Substance use type: does not use Do You Feel Safe in your Home?: Yes Lack of Transportation: YES Lack of Food: Never True Current Housing: I Have Housing Concerned About Future Housing: No Difficulty Paying Gas/Electric Bills: No Difficulty Paying for Meds: No Currently Unemployed: No Education: Associate Degree Difficulty w/ Childcare or Family Care: No Living arrangements: with family Additional living arrangements comments: SISTER Spiritual care concerns: No Anes - Eval Final PreProcedure Day of Procedure 12/22/24 09:57 Patient weight: normal Heart: regular rate and rhythm Lungs: decreased breath sounds Airway: Mallampati scale class II Neurological: alert and oriented Last oral intake: >/= 8 hours ASA classification: IV Emergent: no Anesthetic plan: proceed Anesthesia type and monitoring: general GIVS and standard monitoring Results Review: All pre-operative results and documents have been reviewed as part of the pre-operative evaluation. Informed Consent: The patient's anesthetic plan and its attendant risks and benefits were discussed with the patient/family/POA. Questions were solicited and answers provided to the satisfaction of the patient/family/POA.
--- NOTE | 2024-12-22 10:00 | WPDHPUPDATE1 ---
History and Physical Update Update Date/Time: 12/22/24 10:00 History and Physical has been reviewed, including an updated exam of the patient. There are NO changes in the patient's condition. Risks, benefits, and alternatives have been discussed and questions answered. Patient agrees to proceed with procedure.
[2024-12-22] MEDS: HEPARIN SODIUM 1,000 UNITS/ML VIAL 1000 UNITS IV PUSH (10:11)
[2024-12-22] MEDS: ceFAZolin 2 GM/D5W 50 ML 2 GM/50 ML BAG IVPB (10:11)
[2024-12-22] MEDS: BUPIVACAINE/EPINEPHRINE 0.5% 30 ML VIAL INFILTRATE (10:11)
--- NOTE | 2024-12-22 11:11 | W.PM.PROC2 ---
Procedure Note - Detailed Date of Procedure 12/22/24 Pre-op Diagnosis Lung CA, inadequate venous access Post-op Diagnosis Same Procedure Performed Placement left internal jugular Port-A-Cath using ultrasound and under fluoroscopy Surgeon Merlin Campbell MD Corporate Tutor Jacquelyn ARREGUIN Anesthesia General (G IV S) and Local Indications Patient has been found to have stage IV lung cancer. She is going to have chemotherapy and a Port-A-Cath is being placed at the request of her oncologist. Findings Port-A-Cath tip in the distal SVC Description of Procedure Patient was taken to surgery and anesthesia was introduced. The left neck and upper chest were prepped and draped. Using ultrasound, the left internal jugular vein was seen and cannulated. A guidewire was able to be passed into the internal jugular vein and down into the superior vena cava. We verified the position with fluoroscopy. Local was then infiltrated just under the left clavicle. Incision was made and dissection carried down through the subcutaneous. The pectoralis major fascia was then divided and a subfascial pocket was created. Cautery was used for hemostasis. A counter incision was marked on the left neck lateral but about half way between the exit site of the guidewire and the Port-A-Cath pocket. Local was infiltrated here and at the exit site of the guidewire. Incision was made both at the counter incision as well as at the exit site of the guidewire. The Port-A-Cath tubing was then tunneled retrograde from the pocket through the counter incision and then through the exit site of the guidewire. Port-A-Cath was placed in the pocket. Using C-arm fluoroscopy, we measured the Port-A-Cath length that would be needed. It was cut to the appropriate length. Under fluoroscopy, we then passed the introducer and the sheath over the guidewire. The introducer and the guidewire were removed. The Port-A-Cath tubing was passed through the sheath and into the distal superior vena cava. I checked the position of the tip of the Port-A-Cath and it appeared satisfactory. We then removed the sheath and again checked the Port-A-Cath position. It was in the distal SVC. Port-A-Cath was checked. It aspirated blood easily and flushed readily with heparin. We then sutured the Port-A-Cath to the pectoralis major muscle with interrupted 3-0 silk suture. Port-A-Cath was recheck and again aspirated blood well and flushed easily with heparin. The Port-A-Cath pocket was then closed with layered running 2-0 Vicryl suture. The exit site of the guidewire and the counter incision were closed at the skin level with subcuticular 4-0 Vicryl skin suture. A running 4-0 Monocryl skin stitch was used to finally close the Port-A-Cath pocket. All 3 incision pins were dressed with Exofin surgical adhesive. Patient was awakened and taken to outpatient surgery in good condition. Sponge and needle counts were correct x2. Implants Vortex Port-A-Cath Estimated Blood Loss -5 Drains No Packing No Pathology None sent Complications None Condition Stable Disposition Same day [facility] Billing Surgery - Charge Forward: Surgery Billing (Placement left internal jugular Port-A-Cath using ultrasound and under fluoroscopy.)
[2024-12-22 11:12] VITALS: BP 114/50; PULSE 71; RESP 16; O2SAT 100
[2024-12-22 11:30] VITALS: BP 122/58; PULSE 69; RESP 16; O2SAT 99
[2024-12-22] MEDS: oxyCODONE HCL (*CRX) 5 MG TAB IR PO (11:52)
[2024-12-22 12:00] VITALS: BP 131/63; PULSE 67; RESP 16
[2024-12-22 12:20] VITALS: BP 130/72; PULSE 68; RESP 20
== END 2024-12-22 12:30 | disposition home or self-care (01) ==
PROVIDERS: Visit Provider Surgery
PROC: (CPT 36561; principal; 2024-12-22 10:30)
DX: C34.90 Malignant neoplasm of unspecified part of unspecified bronchus or lung (principal); G89.18 Other acute postprocedural pain; J44.9 Chronic obstructive pulmonary disease, unspecified; F32.A Depression, unspecified; F41.9 Anxiety disorder, unspecified; D64.9 Anemia, unspecified; E87.6 Hypokalemia; J96.11 Chronic respiratory failure with hypoxia; I11.9 Hypertensive heart disease without heart failure; Z79.891 Long term (current) use of opiate analgesic; Z79.51 Long term (current) use of inhaled steroids; Z79.82 Long term (current) use of aspirin; Z99.81 Dependence on supplemental oxygen; Z98.890 Other specified postprocedural states; Z95.2 Presence of prosthetic heart valve; Z87.891 Personal history of nicotine dependence; Z80.0 Family history of malignant neoplasm of digestive organs; Z82.49 Family history of ischemic heart disease and other diseases of the circulatory system
CPT/HCPCS: 36561; 77001; A9270; C1788; J0690; J1644; J1885; J2704; J3010; J7030; J7120

== ENCOUNTER 2024-12-29 14:33 | Inpatient (IN) | payer MEDICARE, SELFPAY ==
[2024-12-29] VITALS (17 sets, daily range): BP systolic 123–157; BP diastolic 60–97; PULSE 75–111; RESP 14–27; TEMP 36.6–36.9; O2SAT 92–100; BMI 25.4
--- NOTE | ~2024-12-29 | US_ITS ---
BILATERAL LOWER EXTREMITY VENOUS ULTRASOUND Ordering provider: Vishal Sharp MD History: . Swelling . Comparison: None. FINDINGS: RIGHT LOWER EXTREMITY VEINS: --COMMON FEMORAL: Patent and free of thrombus. Normal compressibility, phasic flow and augmentation. --PROXIMAL SUPERFICIAL FEMORAL: Patent and free of thrombus. Normal compressibility, phasic flow and augmentation. --DISTAL SUPERFICIAL FEMORAL: Patent and free of thrombus. Normal compressibility, phasic flow and au gmentation. --POPLITEAL: Patent and free of thrombus. Normal compressibility, phasic flow and augmentation. --POSTERIOR TIBIAL: Patent and free of thrombus. Normal compressibility, phasic flow and augmentation . LEFT LOWER EXTREMITY VEINS: --COMMON FEMORAL: Patent and free of thrombus. Normal compressibility, phasic flow and augmentation. --PROXIMAL SUPERFICIAL FEMORAL: Patent and free of thrombus. Normal compressibility, phasic flow and augmentation. --DISTAL SUPERFICIAL FEMORAL: Patent and free of thrombus. Normal compressibility, phasic flow and au gmentation. --POPLITEAL: Patent and free of thrombus. Normal compressibility, phasic flow and augmentation. --POSTERIOR TIBIAL: Patent and free of thrombus. Normal compressibility, phasic flow and augmentation . IMPRESSION: Negative bilateral lower extremity venous US. No deep vein thrombosis. Reviewed, dictated and finalized at location A.
--- NOTE | ~2024-12-29 | NM_ITS ---
EXAMINATION: NM lung vent and perfusion DATE: 12/30/2024 13:45 INDICATION: Shortness of breath TECHNIQUE: AP mCi xenon-133 by inhalation and 5.5 mCi Tc-99m MAA by intravenous route. Scintigraphic images of the chest were obtained. COMPARISON: Chest CT dated 12/30/2024 FINDINGS: There are 3 small peripheral region of decreased activity on the ventilation images at the lateral ri ght mid and lower lung zones with corresponding small masses versus consolidation on CT imaging. Ther e is diffuse decreased washout of activity consistent with obstructive pulmonary disease with diffuse moderate emphysema evident on the prior CT. There is diffuse mild decreased activity throughout the right hemithorax relatively left and the posterior scintigrams of both the ventilation and perfusion imaging likely related to the presence of a small posterior layering right pleural effusion. Moderate -sized perfusion defect at the superior segment of the left lower lobe and at the lingula. Large perf usion defect at the lateral basal and anterobasal segments of the right lower lobe. Moderate-sized pe rfusion defect at the posterior segment of the right upper lobe. IMPRESSION: 1. High probability for pulmonary embolism. 2. Diffuse decreased washout the lungs consistent with obstructive pulmonary disease with correspondi ng moderate emphysema seen on prior CT. Reviewed, dictated and finalized at location B. IMPRESSION: 1. High probability for pulmonary embolism. 2. Diffuse decreased washout the lungs consistent with obstructive pulmonary di sease with corresponding moderate emphysema seen on prior CT.
--- NOTE | ~2024-12-29 | CT_ITS ---
CLINICAL INDICATION: Chest pain COMPARISON: 12/13/2024. TECHNIQUE: Multiple contiguous axial images of the chest was performed without the administration of intravenous contrast. This CT examination was performed utilizing dose reduction techniques. DLP: 159 mGy-cm FINDINGS/OBSERVATIONS: LUNG: Redemonstration of severe panlobular emphysematous disease. Redemonstration of at least 3 pleural-based spiculated masses within the right hemithorax, unchanged from 12/13/2024. Interval resolution of the right-sided pleural effusion, now chest trace in size. Improved aeration of the bilateral lung hurst, when compared with previous study. HEART: The heart is enlarged, with a small pericardial effusion - an interval change from previous study. Prosthetic valve in the aortic position. Left internal jugular central venous port catheter redemonstrated, extending into the right atrium. T he course of the catheter from its access point in the neck is far too high to be visualized on the c urrent examination. MEDIASTINUM: Scattered non-pathologically enlarged or morphologically suspicious lymph nodes are identified within the mediastinum and bilateral axilla. SOFT TISSUES OF THE CHEST: Unremarkable. BONES OF THE CHEST: No acute fracture. No lytic or blastic lesions are identified. UPPER ABDOMEN: Layering stones within the gallbladder. The bilateral adrenal glands are unremarkable in their course and contour. IMPRESSION: Improved aeration when compared with previous examination dated 12/13/2024. Interval resolution of the right-sided pleural effusion. Redemonstration of peripheral pleural-based right-sided pulmonary masses, possibly leading to chest d iscomfort, for which clinical correlation is needed. Interval development of a small pericardial effusion, not present on the previous examination. Reviewed, dictated and finalized at location A. IMPRESSION: Improved aeration when compared with previous examination dated 12/13/2024. Interval resolution of the right-sided pleural effusion. Redemonstration of peripheral pleural-based right-sided pulmonary masses, possi gulshan leading to chest discomfort, for which clinical correlation is needed. Interval development of a small pericardial effusion, not present on the previo us examination.
--- NOTE | 2024-12-29 15:19 | ED.SOB ---
HPI - SOB/Dyspnea General Chief Complaint: Shortness of Breath/Dyspnea <My Chu PA-C - Last Filed: 01/01/25 17:48> Stated Complaint: short of breath <My Chu PA-C - Last Filed: 01/01/25 17:48> Time Seen by Provider: 12/29/24 15:19 <My Chu PA-C - Last Filed: 01/01/25 17:48> Focused HPI: This is a 69 year old female that presents to the ER for shortness of breath, generalized weakness worsening since yesterday. Reports recently being discharged after being diagnosed with pneumonia, lung cancer, GI bleeding. Reports mid back pain, headache. GENERAL: Chronically ill-appearing, well-nourished, and in no acute distress. HEAD: Normocephalic, atraumatic. CHEST: No respiratory distress. Lung sounds diminished HEART: Regular rate and rhythm.? NEURO: ?Alert and oriented x3. Patient screened in triage and initial orders placed.? ?Additional care and disposition to be based upon?diagnostic testing and treatment. <My Chu PA-C - Last Filed: 01/01/25 17:48> Source: patient and family (son Shalom) <Evelyn Sheets MD - Last Filed: 12/30/24 23:50> History of Present Illness HPI Narrative: Agree with the above with the following additions/corrections: Presents with shortness of breath and low back pain (the latter chronic). She has had generalized weakness. She does not have chest pain. No diaphoresis, nausea/vomiting. Had a recent cough due to pneumonia diagnosis but this stopped. Recently diagnosed with lung cancer (new diagnosis per son, within the past week). States had a TAVR done. Cardiac Risk Factors: HTN - Yes HLD - No DM - No Obesity - No Smoker - No Hx AR/TIA/CVA- No Fam Hx - No <Evelyn Sheets MD - Last Filed: 12/30/24 23:50> Related Data Home Medications: Home Medications ?Medication ?Instructions ?Recorded ?Confirmed ?Last Taken ?Type ferrous sulfate 137 mg (45 mg 137 mg PO DAILY 01/06/24 12/29/24 12/29/24 History iron) tablet,extended release (Slow Fe) ipratropium 0.5 mg-albuterol 3 mg 3 ml inhalation Q6HRT PRN 12/21/24 12/29/24 12/29/24 History (2.5 mg base)/3 mL nebulization shortness of breath or wheezing soln <My Chu PA-C - Last Filed: 01/01/25 17:48> Allergies/Adverse Reactions: Allergies Allergy/AdvReac Type Severity Reaction Status Date / Time iohexol (From contrast - CT, AdvReac FLUSHED, Verified 12/22/24 08:30 X-RAY) HOT FEELING <My Chu PA-C - Last Filed: 01/01/25 17:48> Review of Systems Review of Systems: All systems reviewed & are unremarkable except as noted in HPI and below <My Chu PA-C - Last Filed: 01/01/25 17:48> PMFSH Past Medical History Medical History: Medical History (Updated 12/30/24 @ 23:50 by Evelyn Sheets MD) Moderate pulmonic regurgitation and right ventricular dilation by prior echocardiogram Moderate pulmonary hypertension Diastolic dysfunction grade 1 diastolic dysfunction on echo in December 2024 with an EF of 60 to 65% Non-small cell carcinoma of right lung, stage 4 (11/2024) arising in a pleural based mass in the right mid to lower lung with malignant effusion Chronic respiratory failure with hypoxia, on home oxygen therapy Chronic obstructive pulmonary disease Bleeding gastric ulcer Hypertension History of blood transfusion Seasonal allergies Tension headache Depression Cervicalgia Low back pain Migraines Anxiety Anemia <My Chu PA-C - Last Filed: 01/01/25 17:48> Surgical History Surgical History: Surgical History (Updated 12/30/24 @ 13:59 by Miley Rodrigez PA-C) History of cardiac catheterization (12/29/24) minimal irregularities with possible apical inferior hypokinesis and an EF 55% History of transcatheter aortic valve implantation (REYNA) (2022) via right neck History of laparoscopy History of esophagogastroduodenoscopy (EGD) History of (1980) <My Chu PA-C - Last Filed: 01/01/25 17:48> Family History Family History: Family History Father Alcoholism Heart disease Hypertension Grandparent Carcinoma of colon Acute myocardial infarction <My Chu PA-C - Last Filed: 01/01/25 17:48> Social History Social History: Social History Social History: Surrogate medical decision maker: rosa Cisneros Code status: Full code. Smoking packs per day: 1 Smoking cigarettes per day: 20.0 Years smoked: 50 Smoking pack-years: 50.00 Smoking status: Former smoker Tobacco type: cigarettes Smoking end date: 09/23/23 Alcohol intake: never Substance use: never Substance use type: does not use Do You Feel Safe in your Home?: Yes Lack of Transportation: No Lack of Food: Never True Current Housing: I Have Housing Concerned About Future Housing: No Difficulty Paying Gas/Electric Bills: No Difficulty Paying for Meds: No Currently Unemployed: No Education: Associate Degree Difficulty w/ Childcare or Family Care: No Living arrangements: with family Additional living arrangements comments: SISTER Spiritual care concerns: No <My Chu PA-C - Last Filed: 01/01/25 17:48> Exam Const: General: alert; No confusion or diaphoretic <Evelyn Sheets MD - Last Filed: 12/30/24 23:50> Orientation/consciousness: patient oriented x3 <Evelyn Sheets MD - Last Filed: 12/30/24 23:50> Limitations: no limitations <Evelyn Sheets MD - Last Filed: 12/30/24 23:50> Other: appears chronically ill <Evelyn Sheets MD - Last Filed: 12/30/24 23:50> HENMT: Head: normal to inspection and no contusions <Evelyn Sheets MD - Last Filed: 12/30/24 23:50> Eyes: Direct Ophthalmoscopy: no photophobia <Evelyn Sheets MD - Last Filed: 12/30/24 23:50> Neck: Neck: normal visual inspection and no meningeal signs <Evelyn Sheets MD - Last Filed: 12/30/24 23:50> Resp: Effort & Inspection: normal respiratory effort <Evelyn Sheets MD - Last Filed: 12/30/24 23:50> Auscultation: clear to auscultation bilaterally <Evelyn Sheets MD - Last Filed: 12/30/24 23:50> Other: NC in place <Evelyn Sheets MD - Last Filed: 12/30/24 23:50> Cardio: Rate: regular rate and not bradycardic <Evelyn Sheets MD - Last Filed: 12/30/24 23:50> Rhythm: regular rhythm <Evelyn Sheets MD - Last Filed: 12/30/24 23:50> GI: GI Palp: Yes Soft to palpation <Evelyn Sheets MD - Last Filed: 12/30/24 23:50> Neuro: General: patient oriented x3, moves all extremities, no meningeal signs and no focal motor deficits <Evelyn Sheets MD - Last Filed: 12/30/24 23:50> Speech: normal speech <Evelyn Sheets MD - Last Filed: 12/30/24 23:50> Extrem: General: normal to inspection and no pedal edema <Evelyn Sheets MD - Last Filed: 12/30/24 23:50> Psych: Mental Status: mental status grossly normal <Evelyn Sheets MD - Last Filed: 12/30/24 23:50> Affect: normal affect and No Sad affect present <Evelyn Sheets MD - Last Filed: 12/30/24 23:50> Attitude: cooperative <Evelyn Sheets MD - Last Filed: 12/30/24 23:50> Course Vital Signs Vital signs: Vital Signs Temperature 98.1 F 12/29/24 14:37 Pulse Rate 100 12/29/24 14:37 Respiratory Rate 20 12/29/24 14:37 Blood Pressure 145/82 H 12/29/24 14:37 Pulse Oximetry 99 12/29/24 14:37 Oxygen Delivery Room Air 12/29/24 14:37 Temperature 97.1 F L 01/01/25 14:04 Pulse Rate 61 01/01/25 14:04 Respiratory Rate 18 01/01/25 14:04 Blood Pressure 169/63 H 01/01/25 14:04 Pulse Oximetry 98 01/01/25 14:04 Oxygen Delivery Nasal Cannula 01/01/25 11:55 Oxygen Flow Rate 3 01/01/25 11:55 <My Chu PA-C - Last Filed: 01/01/25 17:48> Vital Signs Temperature 98.1 F 12/29/24 14:37 Pulse Rate 100 12/29/24 14:37 Respiratory Rate 20 12/29/24 14:37 Blood Pressure 145/82 H 12/29/24 14:37 Pulse Oximetry 99 12/29/24 14:37 Oxygen Delivery Room Air 12/29/24 14:37 Temperature 97.1 F L 01/01/25 14:04 Pulse Rate 61 01/01/25 14:04 Respiratory Rate 18 01/01/25 14:04 Blood Pressure 169/63 H 01/01/25 14:04 Pulse Oximetry 98 01/01/25 14:04 Oxygen Delivery Nasal Cannula 01/01/25 11:55 Oxygen Flow Rate 3 01/01/25 11:55 <Evelyn Sheets MD - Last Filed: 12/30/24 23:50> MDM - SOB/Dyspnea MDM Narrative Medical decision making narrative: Patient present with shortness of breath and low back pain . In the ED she is afebrile with VS that show mild hypertension, acceptable. EKG concerning for STEMI. Went immediately to patient's bedside and performed brief HPI and obtained history of cardiac risk factors. History of COPD and recent lung cancer diagnosis; lungs are clear to auscultation w/o wheezes. Spoke with Dr Chase who concurs that it doesn't seem like ACS but the elevations are concerning. Repeat EKG is pending. Recommends activating and discussing with Dr Deleon given it is nearly time for the overnight grinder set up operator centerless. Spoke with Dr Deleon. Sent both EKGS. Dr Chase had located an old EKG which was also sent to him. Patient had stated her TAVR had been done at [facility] but Dr Chase finds record of it being done at [facility]. Activation will remain and patient to go to the blood bank laboratory technician. Recommends ASA and heparin but not Brilinta. (Labs had not resulted at the time of moving patient to the blood bank laboratory technician). <Evelyn Sheets MD - Last Filed: 12/30/24 23:50> Differential Diagnosis Differential diagnosis: Likely acute exacerbation of chronic obstructive airways disease, congestive heart failure, community acquired pneumonia (/sequelae), pulmonary embolism and other (ACS; lung cancer; acute viral syndrome) <Evelyn Sheets MD - Last Filed: 12/30/24 23:50> Lab Data Result diagrams: 12/31/24 05:10 12/31/24 05:10 <My Chu PA-C - Last Filed: 01/01/25 17:48> Labs: Lab Results 12/29/24 Range/Units 16:11 WBC 6.2 (4.5-10.0) K/mm3 RBC 4.67 (4.2-5.4) M/mm3 Hgb 11.5 L (12.0-15.0) g/dL Hct 42.3 (37.0-47.0) % MCV 90.6 (80-100) fl MCH 24.6 L (26-34) pg MCHC 27.2 L (32-36) g/dl RDW 17.2 H (11.5-14.5) % Plt Count 300 (150-375) k/mm3 MPV 10.2 (7.4-10.4) fl Immature Gran % (Auto) 0.3 (0-0.5) % Neut % (Auto) 80.3 H (45.5-73.1) % Lymph % (Auto) 10.9 L (18.3-44.2) % Cameron % (Auto) 6.6 (2.6-8.5) % Eos % (Auto) 1.1 (0-4.4) % Baso % (Auto) 0.8 (0.2-1.2) % Lymph # (Auto) 0.68 L (0.9-3.2) K/mm3 Cameron # (Auto) 0.4 (0.1-0.6) K/mm3 Eos # (Auto) 0.1 (0-0.3) K/mm3 Baso # (Auto) 0.1 (0.0-0.1) K/mm3 Abs Immat Gran (auto) 0.02 (0.00-0.031) K/mm3 Absolute Neuts (auto) 5.0 (1.3-6.7) K/mm3 Absolute Nucleated RBC 0.000 (0.0-0.012) K/mm3 Band Neutrophils % Not Reportable Nucleated RBC % 0.0 (0.0-0.2) % Platelet Estimate Adequate (Adequate) Hypochromasia 1+ Ovalocytes 1+ Schistocytes None seen PT 13.4 (11.1-14.7) Seconds INR 1.0 APTT 29.5 (22.3-36.8) Seconds Sodium 141 (137-145) mmol/L Potassium 4.0 (3.4-5.0) mmol/L Chloride 96 L (98-107) mmol/L Carbon Dioxide > 40 H (22-30) mmol/L Anion Gap (4-12) mmol/L BUN 12 (7-17) mg/dL Creatinine 0.38 L (0.7-1.0) mg/dL Estim Creat Clear Calc 96 ml/min Estimated GFR > 60 (59 - ) Glucose 131 H (65-110) mg/dL Calcium 9.7 (8.4-10.2) mg/dL Total Bilirubin 0.5 (0.2-1.3) mg/dL AST 32 (14-36) U/L ALT 15 (6-35) U/L Alkaline Phosphatase 102 (38-126) U/L Troponin I 0.063 H* (0.000-0.034) ng/mL NT-Pro-B Natriuret Pep 47455 H (19.9-100) pg/mL Total Protein 8.0 (6.3-8.2) g/dL Albumin 4.0 (3.5-5.1) g/dL Influenza A (RT-PCR) Negative (Negative) Influenza B (RT-PCR) Negative (Negative) RSV (RT-PCR) Negative (Negative) SARS-CoV-2 RNA (RT-PCR) Negative (Negative) <My Chu PA-C - Last Filed: 01/01/25 17:48> Lab Results 12/29/24 Range/Units 16:11 WBC 6.2 (4.5-10.0) K/mm3 RBC 4.67 (4.2-5.4) M/mm3 Hgb 11.5 L (12.0-15.0) g/dL Hct 42.3 (37.0-47.0) % MCV 90.6 (80-100) fl MCH 24.6 L (26-34) pg MCHC 27.2 L (32-36) g/dl RDW 17.2 H (11.5-14.5) % Plt Count 300 (150-375) k/mm3 MPV 10.2 (7.4-10.4) fl Immature Gran % (Auto) 0.3 (0-0.5) % Neut % (Auto) 80.3 H (45.5-73.1) % Lymph % (Auto) 10.9 L (18.3-44.2) % Cameron % (Auto) 6.6 (2.6-8.5) % Eos % (Auto) 1.1 (0-4.4) % Baso % (Auto) 0.8 (0.2-1.2) % Lymph # (Auto) 0.68 L (0.9-3.2) K/mm3 Cameron # (Auto) 0.4 (0.1-0.6) K/mm3 Eos # (Auto) 0.1 (0-0.3) K/mm3 Baso # (Auto) 0.1 (0.0-0.1) K/mm3 Abs Immat Gran (auto) 0.02 (0.00-0.031) K/mm3 Absolute Neuts (auto) 5.0 (1.3-6.7) K/mm3 Absolute Nucleated RBC 0.000 (0.0-0.012) K/mm3 Band Neutrophils % Not Reportable Nucleated RBC % 0.0 (0.0-0.2) % Platelet Estimate Adequate (Adequate) Hypochromasia 1+ Ovalocytes 1+ Schistocytes None seen PT 13.4 (11.1-14.7) Seconds INR 1.0 APTT 29.5 (22.3-36.8) Seconds Sodium 141 (137-145) mmol/L Potassium 4.0 (3.4-5.0) mmol/L Chloride 96 L (98-107) mmol/L Carbon Dioxide > 40 H (22-30) mmol/L Anion Gap (4-12) mmol/L BUN 12 (7-17) mg/dL Creatinine 0.38 L (0.7-1.0) mg/dL Estim Creat Clear Calc 96 ml/min Estimated GFR > 60 (59 - ) Glucose 131 H (65-110) mg/dL Calcium 9.7 (8.4-10.2) mg/dL Total Bilirubin 0.5 (0.2-1.3) mg/dL AST 32 (14-36) U/L ALT 15 (6-35) U/L Alkaline Phosphatase 102 (38-126) U/L Troponin I 0.063 H* (0.000-0.034) ng/mL NT-Pro-B Natriuret Pep 90356 H (19.9-100) pg/mL Total Protein 8.0 (6.3-8.2) g/dL Albumin 4.0 (3.5-5.1) g/dL Influenza A (RT-PCR) Negative (Negative) Influenza B (RT-PCR) Negative (Negative) RSV (RT-PCR) Negative (Negative) SARS-CoV-2 RNA (RT-PCR) Negative (Negative) <Evelyn Sheets MD - Last Filed: 12/30/24 23:50> ECG Data EKG #1: Attestation: I personally reviewed and interpreted this ECG as follows: <Evelyn Sheets MD - Last Filed: 12/30/24 23:50> ECG completion date: 12/29/24 <Evelyn Sheets MD - Last Filed: 12/30/24 23:50> ECG completion time: 16:24 <Evelyn Sheets MD - Last Filed: 12/30/24 23:50> Prior ECG tracings: not available for review (not available for review internally; Dr Chase is able to find a previous) <Evelyn Sheets MD - Last Filed: 12/30/24 23:50> Ischemic changes: acute STEMI <Evelyn Sheets MD - Last Filed: 12/30/24 23:50> Interpretation: Normal sinus rhythm at a rate of 87 bpm w/ PVC. Prominent P waves in inferior leads. Diffuse elevations throughout (inferiors as well as V3 & V4 and to a lesser extent V5&6). NM 137. QRS 92. QT/QTc 348/393. <Evelyn Sheets MD - Last Filed: 12/30/24 23:50> EKG #2: Attestation: I personally reviewed and interpreted this ECG as follows: <Evelyn Sheets MD - Last Filed: 12/30/24 23:50> ECG completion date: 12/30/24 <Evelyn Sheets MD - Last Filed: 12/30/24 23:50> ECG completion time: 16:53 <Evelyn Sheets MD - Last Filed: 12/30/24 23:50> Ischemic changes: acute STEMI <Evelyn Sheets MD - Last Filed: 12/30/24 23:50> Interpretation: NSR at 78bpm. NM interval 132ms. QRS 97ms. QT/QTc 367/400ms. ST elevations persist in inferior leads <Evelyn Sheets MD - Last Filed: 12/30/24 23:50> Critical Care Time Critical Care Time Critical Care Time: Yes <My Chu PA-C - Last Filed: 01/01/25 17:48> Total Critical Care Time: 35 <My Chu PA-C - Last Filed: 01/01/25 17:48> Discharge Plan Discharge Clinical Impression: Shortness of breath ST elevation (STEMI) myocardial infarction Qualifiers: Involved coronary artery: unspecified coronary artery Qualified Code(s): I21.3 - ST elevation (STEMI) myocardial infarction of unspecified site <My Chu PA-C - Last Filed: 01/01/25 17:48> Patient Disposition: Still a Patient <LYUBOV Amor Last Filed: 01/01/25 17:48> Condition: Stable <LYUBOV Amor Last Filed: 01/01/25 17:48>
--- NOTE | 2024-12-29 15:22 | ECG_ITS ---
Test Date: 2024-12-29 16:24:12 Measurements Intervals Amelia Rate: 87 P: 78 MO: 137 QRS: -68 QRSD: 92 T: 87 QT: 348 QTc: 420 Interpretive Statements SINUS RHYTHM WITH OCCASIONAL SUPRAVENTRICULAR PREMATURE COMPLEXES LEFT AXIS DEVIATION LEFT ATRIAL ENLARGEMENT ANTERIOR ST ELEVATION MYOCARDIAL INFARCT- SUBACUTE INFERIOR ST ELEVATION MYOCARDIAL INFARCT- ACUTE BASELINE ARTIFACT- I, II, III, AVR, AVL, AVF, V1, V4-V6 ABNORMAL ECG No previous ECG available for comparison Electronically Signed On 12-29-2024 18:05:44 CDT by Oliverio Smith D.O.
[2024-12-29] MEDS: IPRATROPIUM 0.5 MG/ALBUTEROL SULFATE 2.5 MG AMPUL.NEB 3 ML INHALATION (15:57)
--- OUTSIDE RECORDS SUMMARY | 2024-12-29 16:11 | XMS_ITS | Clinical Summary ---
Author Organization [facility] Address [facility] [place] [address] Care Team Providers Care Fireproof Door Assembler Name Role Phone Raya Merlos Primary Care Provider [phone] Allergies Active Allergy Reactions Criticality Noted Date [...] (02/26/2023): Added automatically from request for surgery [id number] Iron deficiency anemia 11/09/2022 Acute blood loss anemia 07/18/2022 Upper GI bleed 07/18/2022 Atherosclerosis of aorta 09/25/2019 Overview (03/08/2023): 12.31.19 CT Abdomen & Pelvis Atherosclerotic nonaneurysmal abdominal aorta Generalized anxiety disorder 08/10/2014 Low back pain 08/10/2014 Overview (03/08/2023): OA (osteoarthritis) 08/10/2014 Pulmonary emphysema ([facility]/H[facility]/HCC) 08/10/2014 Overview (03/08/2023): Family History Medical History [...] often do you attend chur ch or tenriism services? Never 03/21/2023 Do you belong to any clubs o r organizations such as methodist groups, unions, fraternal or athletic groups, or [...] Recorded Patient Health Questionnaire-2 Score 0 03/21/2023 [facility] of Occupat ional Health - Occupational Stress [...] slept in a senior care (including now)? No 03/21/2023 Comments No Sex [...] (2 - 2023-2 5 season) 2024 03/29/2021 Colorectal Cancer Screening FIT/FOBT (1 Year) 09/04/2024 [...] discharge from hospital Lifestyle No Sheyla Torres, TOOL FILER Health - patient able to perform ADLs independently Lifestyle No John Bell, RN Medical Devices Implanted Type Area Diabetes Manager Device Identifier Shelf Expiration Date Model / Serial / Lot Aortic Valve ([employer]tronic) Implant- [id number] Implanted:Qty: 1 on 03/06/2023 by Shahid Calderon MD Valve Implant Aorta [employer] 11/19/2024 EVOLUT-FX- [id number] / [id number] / Procedures Procedure Name Priority Date/Time Associated Diagnosis Comments OCCULT BLOOD, FECES STAT 03/21/2023 5 :30 PM CDT LIPID PANEL STAT 02/24/2023 10:45 AM CDT from Last 3 Months or Most Recently Relevant to Health Maintenance Results * OCCULT BLOOD, FECES (03/21/2023 5:30 PM CDT) OCCULT BLOOD FECAL POSITIVE 03/21/2023 6:30 PM CDT [facility] STOOL SPECIMEN / Unknown 03/21/2023 5:30 PM CDT Wilbert BUENO BODY FLUIDS AND STOOLS ORD ERABLES Final Result [facility] [address] [place] [address], * (ABNORMAL) LIPID PANEL (02/24/2023 10:45 AM CDT) CHOLESTEROL 203(H) <200 MG/DL 02/24/2023 3:24 PM CDT [facility] TRIGLYCERIDES 75 <150 MG/DL 02/24/2023 3:24 PM CDT [facility] HDL 62 >40.0 MG/DL 02/24/2023 3:24 PM CDT [facility] LDL (CALCULATED) 126(H) <100 MG/DL 02/24/2023 3:24 PM CDT [facility] NON HDL CHOLESTEROL 141(H) <130 MG/DL 02/24/2023 3:24 PM CDT [facility] CHOL/HDL RATIO 3.3 0.0 - 4.5 02/24/2023 3:24 PM CDT [facility] VLDL CALCULATION 15 5 - 55 MG/DL 02/24/2023 3:24 PM CDT [facility] LIPID INTERPRETATION 02/24/2023 3:24 PM CDT [facility] Comment: [facility] CONCENSUS REPORT RECOMMENDATIONS: ADULT CHILD LOW RISK: CHOLESTEROL <200 <170 TRIGLYCERIDE <150 --- HDL >=60 --- LDL <100 <110 BORDERLINE: CHOLESTEROL 200-239 170-199 TRIGLYCERIDE 150-199 --- HDL 40-59 --- LDL 100-159 110-129 HIGH RISK: CHOLESTEROL >=240 >=200 TRIGLYCERIDE >=200 --- HDL <40 --- LDL >=160 >=130 02/24/2023 10:4 5 AM CDT Mckenzie Neil MD LABORATORY Final Result [facility] [address] [place] [address], from Last 3 Months or Most Recently [...] 12:54 PM 03/01/2023 8:45 PM Care Teams Fireproof Door Assembler Relationship Specialty Start Date End Date Raya Merlos PA [address] [place] [address] PCP - General PHYSICIAN GAS DERRICK OPERATOR 03/06/23
--- OUTSIDE RECORDS SUMMARY | 2024-12-29 16:11 | XMS_ITS | Encounter Summary ---
Author Organization [facility] Address [address] [place] [address] Care Team Providers Care Slasher Tender Helper Name Role Phone Raya Merlos Primary Care Provider Karin Alvarado MA Unavailable [phone] Karin Rosen Unavailable Reason for Visit * Reason Onset Date Comments General 11/29/2023 Encounter Details Date Type Department Care Team (Late st Contact Info) Description 11/29/2023 Telephone [facility] - Family Medicine [address] [place] [address] Raya Merlos PA [address] [place] [address] General Social History Tobacco Use [...] place to sleep or slept in a prison (including now)? Patient unable to answer 09/05/2023 [...] with a new provider Dr Jurado in [facility] she has an appt needs refills until she sees new provider * Telephone Encounter - Rupali Vaughn CNA - 11/29/2023 3:25 PM CUT IN WORKER [facility] was calling needing refill on Omeprazole, lisinopril, tizanidine, ferrous sulfate, amitriptyline. IN WORKER documented in this encounter Plan of Treatment Not on file documented as of this encounter Visit Diagnoses Not on filedocumented in this encounter Additional Health Concerns Infection Onset Date Last Indicated Resolved Time ESBL GNR Comment:Urine 09/08/23; 09/08/2023 09/08/2023 documented as of this encounter Care Teams Slasher Tender Helper Relationship Specialty Start Date End Date Raya Merlos PA [address] [place] [address] PCP - General Physician [employer] Messenger 02/23/21 Karin Alvarado MA Care Coordination Specialist Care Management 01/14/24 02/28/24 Karin Rosen Care Coordination Specialist Care Management 07/24/24 09/07/24 documented as of this encounter
--- OUTSIDE RECORDS SUMMARY | 2024-12-29 16:11 | XMS_ITS | Encounter Summary ---
Author Organization [email or web address] Address [address] [place] [address] Care Team Providers Care Sod Stripper Name Role Phone Unavailable Primary Care Provider Unavailabl e Encounter Details Date Type Department Care Team (Late st Contact Info) Description 12/29/2024 External Device Data [facility] ABSTRACTION Provider, Abstract NO ADDRESS ON FILE Social History Tobacco Use Types Packs/Day Years Used Date Smoking Tobacco: Former Cigarettes 0 09/23/2022 - 09/23/1972 Smokeless Tobacco: Never Alcohol Use Standard Drinks/Week Comments Never 0 (1 standard drink = 0.6 oz pur e alcohol) Comments Unknown Sex and Gender Information Value Date Recorded Sex Assigned at Not on file Legal Sex Female 3:21 PM CDT Gender Identity Not on file Sexual Orientation Not on file documented as of this encounter Plan of Treatment Not on file documented as of this encounter Visit Diagnoses Not on filedocumented in this encounter
--- OUTSIDE RECORDS SUMMARY | 2024-12-29 16:11 | XMS_ITS | Clinical Summary ---
Author Organization [facility] Adrian purdy Thea Address [address] [place] [address] Care Team Providers Care Test Engineer Name Role Phone Unavailable Primary Care Provider Unavailabl e Allergies Active Allergy Reactions Criticality Noted Date Comments Iodinated Contrast Media Anaphylaxis High 08/01/2014 Iodine Shortness of Breath/Wheezing High 023 Medications metoprolol tartrate (LOPRESSOR) 25 mg tablet Take 25 mg by mouth 2 times daily. Active lisinopriL (PRINIVIL) 5 mg tablet Take 5 mg by mouth daily in the morning. Active omeprazole (PriLOSEC) 40 mg Capsule, Delayed Release(E.C.) Take 40 mg by mouth daily. Active ferrous sulfate (SLOW FE ORAL) Take 142 mg by mouth daily. Active amitriptyline (ELAVIL) 25 mg tablet Take 25 mg by mouth daily at bedtime. Active ALPRAZolam (Xanax) 0.5 mg tabletIndicatio ns:Anxiety state Take 1 Tablet (0.5 mg) by mouth nightly as needed for Anxiety. 30 Tablet 1 12/25/2024 Active Active Problems No known active problems Encounters Date Type Department Care Team Description 12/29/2024 External Device Data STL ABSTRACTION Provider, Abstract 12/29/2024 External Device Data STL ABSTRACTION Provider, Abstract 12/25/2024 10:00 AM CDT Office Visit [facility] Oncology and Hematology - [address] [facility] [place] [address] Abdias Lozano MD Malignant neoplasm of lung, unspecified laterality, unspecified part of lung (CMS/HCC) (Primary Dx); Anxiety state; Chronic anemia 12/25/2024 Orders Only [facility] Oncology and Hematology [address] [place] [address] Abdias Lozano MD Malignant neoplasm of lung, unspecified laterality, unspecified part of lung (CMS/HCC) (Primary Dx) from Last 3 Months Family History Medical History Relation Name Comments Heart Disease Brother Diabetes Child Heart Disease Father No Known Problems Mother Relation Name Status Comments Brother Child Alive Father Mother Social History Tobacco Use Types [...] Sign Reading Time Taken Comments Blood Pressure 102/55 12/25/2024 10:36 AM CDT Pulse 67 12/25/2024 10:36 AM CDT Temperature 36 C (96.8 F) 12/25/2024 10:36 AM CDT Respiratory Rate 14 12/25/2024 10:36 AM CDT Oxygen Saturation 92% 12/25/2024 10:36 AM CDT Inhaled Oxygen Concentration - - Weight 59.4 kg (131 lb) 12/25/2024 10:36 AM CDT Height 160 cm (5' 3 ) 12/25/2024 10:36 AM CDT Body Mass Index 23.21 12/25/2024 10:36 AM CDT Plan of Treatment Health Maintenance Due Date Last Done Comments DTAP/TDAP/TD VACCINES (1 - Tdap) 1976 PNEUMOCOCCAL VACCINE 50+ YEARS (1 of 2 - PCV) 06/18/19 76 Traditional Medicare (O) Annual Wellness Visit 06/18 BREAST CANCER SCREENING 1997 COLORECTAL SCREENING 2002 Colorectal Cancer Screening 2002 FIT-DNA Q 3 years 2002 FIT/FOBT Q 1 year 2002 Flex Sig/CT Colonography Q 5 years 2002 ZOSTER VACCINE (1 of 2) 2007 RSV VACCINE (60+ or ) (1 - Risk 60-74 years 1-dose series) 2017 OSTEOPOROSIS SCREENING 2022 INFLUENZA VACCINE (#1) 2024 07/19/2022 Procedures Procedure Name Priority Date/Time Associated Diagnosis Comments [facility] NORM[facility] BLOOD Routine 12/25/2024 2:04 PM CDT Malignant neoplasm of lung, unspecified laterality, unspecified part of lung (CMS/HCC) from Last 3 Months Results * [facility] NORMAL BLOOD (12/25/2024 2:04 PM CDT) [facility] 12/25/2024 11:01 PM CDT [facility] Comment:See NGS Report for R esults. Blood specimen (specimen) 12/25/2024 2:04 PM CDT 12/25/2024 2:05 PM CDT Abdias Lozano MD MOLECULAR ORDERABLES Final Resu lt [facility] [address], [address] [place] [address], [facility] [address], [address] [place] [address] from Last 3 Months Insurance MEDICARE PART A AND B
--- OUTSIDE RECORDS SUMMARY | 2024-12-29 16:11 | XMS_ITS | Clinical Summary ---
Author Organization [facility] Address [address], [facility] [address] [place] [address] Phone Care Team Providers Care Cartoonist Special Effects Name Role Phone Usama Jc MD Unavailable [phone] Monet Graham MD Primary Care Provider + [...] on file Legal Sex Female 9:37 AM LOADING MACHINE OPERATOR Gender Identity Not on file Sexual Orientation Not on file Last Filed Vital Signs Vital Sign Reading Time Taken Comments Blood Pressure 112/70 10/24/2022 3:09 PM LOADING MACHINE OPERATOR Pulse 59 10/24/2022 3:09 PM LOADING MACHINE OPERATOR Temperature 36.7 C (98.1 F) 10/24/2022 3:09 PM LOADING MACHINE OPERATOR Respiratory Rate - - Oxygen Saturation 100% 10/24/2022 3:09 PM LOADING MACHINE OPERATOR Inhaled Oxygen Concentration - - Weight 54 kg (119 lb) 10/24/2022 3:09 PM LOADING MACHINE OPERATOR Height 160 cm (5' 3 ) 10/24/2022 3:09 PM LOADING MACHINE OPERATOR Body Mass Index 21.08 10/24/2022 3:09 PM LOADING MACHINE OPERATOR Plan of Treatment Health Maintenance Due Date [...] complete this topic Insurance MEDICARE Care Teams Cartoonist Special Effects Relationship Specialty Start Date End Date Monet Graham MD [address] [place] [address] PCP - General Emergency Medicine 10/15/22 Usama Jc MD [address] [address] Consulting Physician Oncology 10/15/22
--- OUTSIDE RECORDS SUMMARY | 2024-12-29 16:11 | XMS_ITS | Encounter Summary ---
Author Organization [employer] Address [address] [place] [address] Care Team Providers Care Title Department Manager Name Role Phone Unavailable Primary Care Provider [...]
--- OUTSIDE RECORDS SUMMARY | 2024-12-29 16:11 | XMS_ITS | Clinical Summary ---
Author Organization [facility] Address [address] [place] [address] Care Team Providers Care Outbound Sales Professional Name Role Phone Raya Merlos Primary Care Provider [phone] Source Comments [facility],non-owned Affiliates and Associated Physician Practices is amultiple site organization consisting of ambulatory clinics and hospital sitesin [place], [place], [place] and [place]. This disclosure is being madepursuant to the Care Everywhere program and may not contain all information available regarding this patient. Last updated 18.[facility] Allergies Active Allergy Reactions Criticality Noted Date [...] 90 tablet 1 06/20/2023 Active HYDROcodone-aceta minophen ([place]) 5-325 MG tabletIndications :Chronic pain of both [...] Date Recorded PHQ2 TOTAL SCORE 2 03/20/2023 [facility] [place] of Occupat ional Health - Occupational Stress [...] to sleep or slept in a senior living (including now)? Patient unable to answer 09/05/2023 Sex and Gender Information Value Date Recorded Sex Assigned at Not on file Gender Identity Not on file Sexual Orientation Not on file Last Filed Vital Signs Vital Sign Reading Time Taken Comments Blood Pressure 90/57 09/11/2023 7:13 AM RAILROAD CONSTRUCTION DIRECTOR Pulse 96 09/11/2023 7:13 AM RAILROAD CONSTRUCTION DIRECTOR Temperature 36.9 C (98.4 F) 09/11/2023 7:13 AM RAILROAD CONSTRUCTION DIRECTOR Respiratory Rate 18 09/10/2023 11:2 7 PM RAILROAD CONSTRUCTION DIRECTOR Oxygen Saturation 98% 09/11/2023 7:13 AM RAILROAD CONSTRUCTION DIRECTOR Inhaled Oxygen Concentration 50% 02/18/2021 8 :35 AM CDT Weight 53.5 kg (117 lb 15.1 oz) 09/06/2023 4:33 AM RAILROAD CONSTRUCTION DIRECTOR Height 160 cm (5' 3 ) 09/05/2023 1:11 AM RAILROAD CONSTRUCTION DIRECTOR Body Mass Index 20.89 09/05/2023 1:11 AM RAILROAD CONSTRUCTION DIRECTOR Plan of Treatment Health Maintenance Due Date [...] COVID-19 VACCINE (2 - season) 2024 03/29/2021 FIT - COLON CA SCREENING 09/04/2024 023, 07/18/2022, 02/16/2021, Additional history exists DEPRESSION SCREENING 09/23/2024 11/09/2022 INFLUENZA VACCINE (Season Ended) 2025 07/19/2022, 09/20/2019, 07/09/2014 LIPID TESTING 02/25/2028 02/24/2023, 10/17/2022 COLON MONITORING [...] BLOOD FECES IMMUNOASSAY STAT 09/04/2023 10:00 PM RAILROAD CONSTRUCTION DIRECTOR from Last 3 Months or Most Recently Relevant to Health Maintenance Results * OCCULT BLOOD FECES IMMUNOASSAY (09/04/2023 10:00 PM RAILROAD CONSTRUCTION DIRECTOR) Pathologist [facility] Occult Blood Immunoassay Negative Negative 09/04/2023 10:17 PM RAILROAD CONSTRUCTION DIRECTOR [facility] Stool STOOL SPECIMEN / Unknown Collection / Unknown 09/04/2023 10:00 PM RAILROAD CONSTRUCTION DIRECTOR 09/04/2023 10:05 PM RAILROAD CONSTRUCTION DIRECTOR Monet Graham MD LAB - MICROBIOLO GY ORDERABLES Performing Organization Address [facility]/State/ZIP Co de Phone Number [facility] [address] from Last 3 Months or Most [...] 8:17 PM 08/11/2014 11:23 AM Care Teams Outbound Sales Professional Relationship Specialty Start Date End Date Raya Merlos PA [address] [place] [phone] PCP - General Physician Solar Tech 02/23/21
[2024-12-29] MEDS: methylPREDNISolone SOD SUCC 125 MG VIAL IV PUSH (16:15)
[2024-12-29 16:21] LABS: Basophils Absolute Auto 0.1 K/mm3 (0.0-0.1); Basophils Percent Auto 0.8 % (0.2-1.2); Eosinophils Absolute Auto 0.1 K/mm3 (0-0.3); Eosinophils Percent Auto 1.1 % (0-4.4); Hematocrit 42.3 % (37.0-47.0); Hemoglobin 11.5 g/dL (12.0-15.0); Immature Granulocyte Absolute 0.02 K/mm3 (0.00-0.031); Immature Granulocyte Percent A 0.3 % (0-0.5); Lymphocytes Absolute Auto 0.68 K/mm3 (0.9-3.2); Lymphocytes Percent Auto 10.9 % (18.3-44.2); Mean Corpuscular HGB Conc 27.2 g/dl (32-36); Mean Corpuscular Hemoglobin 24.6 pg (26-34); Mean Corpuscular Volume 90.6 fl (80-100); Mean Platelet Volume 10.2 fl (7.4-10.4); Monocytes Absolute Auto 0.4 K/mm3 (0.1-0.6); Monocytes Percent Auto 6.6 % (2.6-8.5); Neutrophils Percent Auto 80.3 % (45.5-73.1); Platelet Count Result 300 k/mm3 (150-375); Red Blood Count 4.67 M/mm3 (4.2-5.4); Red Cell Distribution Width 17.2 % (11.5-14.5); White Blood Count 6.2 K/mm3 (4.5-10.0)
[2024-12-29 16:36] LABS: Alanine Aminotransferase 15 U/L (6-35); Alkaline Phosphatase 102 U/L (38-126); Aspartate Amino Transferase 32 U/L (14-36); Bilirubin,Total 0.5 mg/dL (0.2-1.3); Blood Urea Nitrogen 12 mg/dL (7-17); Calcium 9.7 mg/dL (8.4-10.2); Carbon Dioxide > 40 mmol/L (22-30); Chloride 96 mmol/L (98-107); Estimated CRCL calculation 96 ml/min; Estimated Glomerular Filt Rate > 60; Glucose 131 mg/dL (65-110); Sodium 141 mmol/L (137-145)
[2024-12-29 16:42] LABS: Hypochromasia 1+; Platelet Estimate Adequate (Adequate)
[2024-12-29 16:43] LABS: Ovalocytes 1+; Schistocytes None Seen
--- NOTE | 2024-12-29 16:44 | ECG_ITS ---
Test Date: 2024-12-29 16:53:00 Measurements Intervals Armstrong Rate: 78 P: 70 MI: 132 QRS: -66 QRSD: 97 T: 140 QT: 367 QTc: 419 Interpretive Statements SINUS RHYTHM LEFT AXIS DEVIATION LEFT ATRIAL ENLARGEMENT ANTEROSEPTAL ST ELEVATION MYOCARDIAL INFARCT- SUBACUTE INFERIOR ST ELEVATION MYOCARDIAL INFARCT- SUBACUTE BASELINE ARTIFACT- I, II, AVR, AVL, AVF, V4-V6 ABNORMAL ECG Compared to ECG 12/29/2024 16:24:12 NO SIGNIFICANT CHANGE Electronically Signed On 12-29-2024 18:04:14 CDT by Oliverio Smith D.O.
[2024-12-29 16:49] LABS: Prothrombin Time 13.4 Seconds (11.1-14.7)
[2024-12-29 16:50] LABS: NT Pro B Type Natriuretic Pept 14100 pg/mL (19.9-100); Partial Thromboplastin Time 29.5 Seconds (22.3-36.8)
[2024-12-29] MEDS: ASPIRIN 81 MG CHEWABLE TABLET 324 MG PO (17:00)
[2024-12-29] MEDS: HEPARIN SODIUM 5,000 UNITS/ML VIAL 3500 UNITS IV PUSH (17:00)
--- NOTE | 2024-12-29 17:01 | PC.NURSE ---
Patient taken to optical laboratory manager
--- OUTSIDE RECORDS SUMMARY | 2024-12-29 17:10 | XMS_ITS | Clinical Summary ---
Author Organization [facility] Address [address], [facility] [address] [place] [address] Phone Care Team Providers Care E Business Manager Name Role Phone Usama Jc MD Unavailable [phone] Monet Graham MD Primary Care Provider + [...] on file Legal Sex Female 9:37 AM SCROLL ASSEMBLER Gender Identity Not on file Sexual Orientation Not on file Last Filed Vital Signs Vital Sign Reading Time Taken Comments Blood Pressure 112/70 10/24/2022 3:09 PM SCROLL ASSEMBLER Pulse 59 10/24/2022 3:09 PM SCROLL ASSEMBLER Temperature 36.7 C (98.1 F) 10/24/2022 3:09 PM SCROLL ASSEMBLER Respiratory Rate - - Oxygen Saturation 100% 10/24/2022 3:09 PM SCROLL ASSEMBLER Inhaled Oxygen Concentration - - Weight 54 kg (119 lb) 10/24/2022 3:09 PM SCROLL ASSEMBLER Height 160 cm (5' 3 ) 10/24/2022 3:09 PM SCROLL ASSEMBLER Body Mass Index 21.08 10/24/2022 3:09 PM SCROLL ASSEMBLER Plan of Treatment Health Maintenance Due Date [...] complete this topic Insurance MEDICARE Care Teams E Business Manager Relationship Specialty Start Date End Date Monet Graham MD [address] [place] [address] PCP - General Emergency Medicine 10/15/22 Usama Jc MD [address] [address] Consulting Physician Oncology 10/15/22
--- OUTSIDE RECORDS SUMMARY | 2024-12-29 17:10 | XMS_ITS | Clinical Summary ---
Author Organization [facility] Adrian purdy Thea Address [address] [place] [address] Care Team Providers Care Licensed Practical Vocational Nurse Name Role Phone Unavailable Primary Care Provider [...] Abstract 12/25/2024 10:00 AM CDT Office Visit [facility] Oncology and Hematology - [address] [facility] [place] [address] Abdias Lozano MD Malignant neoplasm of lung, unspecified laterality, unspecified part of lung (CMS/HCC) (Primary Dx); Anxiety state; Chronic anemia 12/25/[address] [facility] Oncology and Hematology [address] [place] [address] Abdias Lozano MD Malignant neoplasm [...] Final Resu lt [facility] [address] [place] [address], [facility] [address] [place] [address] from Last 3 Months Insurance MEDICARE PART A AND B
--- OUTSIDE RECORDS SUMMARY | 2024-12-29 17:10 | XMS_ITS | Encounter Summary ---
Author Organization [employer] Address [address] [place] [address] Care Team Providers Care Set Key Driver Name Role Phone Unavailable Primary Care Provider [...]
--- OUTSIDE RECORDS SUMMARY | 2024-12-29 17:10 | XMS_ITS | Clinical Summary ---
Author Organization [facility] [facility] Address [address] [place] [address] Care Team Providers Care Turn Out Worker Name Role Phone Raya Merlos Primary Care Provider [phone] Source Comments [facility],non-owned Affiliates and Associated Physician Practices is amultiple site organization consisting of ambulatory clinics and hospital sitesin [place], [place], [place]. This disclosure is being madepursuant to the Care Everywhere program and may not contain all information available regarding this patient. Last updated 18.[facility] Allergies Active Allergy Reactions Criticality Noted Date [...] 90 tablet 1 06/20/2023 Active HYDROcodone-aceta minophen ([place]) 5-325 MG tabletIndications :Chronic pain of both [...] Date Recorded PHQ2 TOTAL SCORE 2 03/20/2023 [facility] [place] of Occupat ional Health - Occupational Stress [...] place to sleep or slept in a correction (including now)? Patient unable to answer 09/05/2023 Sex and Gender Information Value Date Recorded Sex Assigned at Not on file Gender Identity Not on file Sexual Orientation Not on file Last Filed Vital Signs Vital Sign Reading Time Taken Comments Blood Pressure 90/57 09/11/2023 7:13 AM MUSICIAN INSTRUMENTAL Pulse 96 09/11/2023 7:13 AM MUSICIAN INSTRUMENTAL Temperature 36.9 C (98.4 F) 09/11/2023 7:13 AM MUSICIAN INSTRUMENTAL Respiratory Rate 18 09/10/2023 11:2 7 PM MUSICIAN INSTRUMENTAL Oxygen Saturation 98% 09/11/2023 7:13 AM MUSICIAN INSTRUMENTAL Inhaled Oxygen Concentration 50% 02/18/2021 8 :35 AM CDT Weight 53.5 kg (117 lb 15.1 oz) 09/06/2023 4:33 AM MUSICIAN INSTRUMENTAL Height 160 cm (5' 3 ) 09/05/2023 1:11 AM MUSICIAN INSTRUMENTAL Body Mass Index 20.89 09/05/2023 1:11 AM MUSICIAN INSTRUMENTAL Plan of Treatment Health Maintenance Due Date [...] BLOOD FECES IMMUNOASSAY STAT 09/04/2023 10:00 PM MUSICIAN INSTRUMENTAL from Last 3 Months or Most Recently Relevant to Health Maintenance Results * OCCULT BLOOD FECES IMMUNOASSAY (09/04/2023 10:00 PM MUSICIAN INSTRUMENTAL) Pathologist [facility] Occult Blood Immunoassay Negative Negative 09/04/2023 10:17 PM MUSICIAN INSTRUMENTAL [facility] Stool STOOL SPECIMEN / Unknown Collection / Unknown 09/04/2023 10:00 PM MUSICIAN INSTRUMENTAL 09/04/2023 10:05 PM MUSICIAN INSTRUMENTAL Monet Graham MD LAB - MICROBIOLO GY ORDERABLES Performing Organization Address [facility]/State/ZIP Co de Phone Number [facility] [address] from Last 3 Months or Most [...] 8:17 PM 08/11/2014 11:23 AM Care Teams Turn Out Worker Relationship Specialty Start Date End Date Raya Merlos PA [address] [place] [phone] PCP - General Physician Leg Breaker 02/23/21
--- OUTSIDE RECORDS SUMMARY | 2024-12-29 17:10 | XMS_ITS | Encounter Summary ---
Author Organization [employer] Address [address] [place] [address] Care Team Providers Care Forepart Reducer Name Role Phone Unavailable Primary Care Provider [...]
--- OUTSIDE RECORDS SUMMARY | 2024-12-29 17:10 | XMS_ITS | Clinical Summary ---
Author Organization [facility] Address [facility] [place] [address] Care Team Providers Care Materials Engineering Technician Name Role Phone Raya Merlos Primary Care Provider [phone] Allergies Active Allergy Reactions Criticality Noted Date [...] (02/26/2023): Added automatically from request for surgery [id number] Iron deficiency anemia 11/09/2022 Acute blood loss anemia 07/18/2022 Upper GI bleed 07/18/2022 Atherosclerosis of aorta 09/25/2019 Overview (03/08/2023): 12.31.19 CT Abdomen & Pelvis Atherosclerotic nonaneurysmal abdominal aorta Generalized anxiety disorder 08/10/2014 Low back pain 08/10/2014 Overview (03/08/2023): OA (osteoarthritis) 08/10/2014 Pulmonary emphysema ([facility]/HCC [facility]/HCC) 08/10/2014 Overview (03/08/2023): Family History Medical History [...] often do you attend chur ch or hoahaoism services? Never 03/21/2023 Do you belong to any clubs o r organizations such as baptism groups, unions, fraternal or athletic groups, or [...] Recorded Patient Health Questionnaire-2 Score 0 03/21/2023 [facility] [place] of Occupat ional Health - Occupational Stress [...] or slept in a correction (including now)? No 03/21/2023 Comments No Sex [...] discharge from hospital Lifestyle No Sheyla Torres, INSPECTOR ASSEMBLIES AND INSTALLATIONS Health - patient able to perform ADLs independently Lifestyle No John Bell, RN Medical Devices Implanted Type Area Scout Leaser Device Identifier Shelf Expiration Date Model / Serial / Lot Aortic Valve (Medtronic) Implant- [id number] Implanted:Qty: 1 on 03/06/2023 by Shahid Calderon MD Valve Implant Aorta [employer] 11/19/2024 EVOLUT-FX- [id number] / [id number] / Procedures Procedure Name Priority Date/Time Associated Diagnosis Comments OCCULT BLOOD, FECES STAT 03/21/2023 5 :30 PM CDT LIPID PANEL STAT 02/24/2023 10:45 AM CDT from Last 3 Months or Most Recently Relevant to Health Maintenance Results * OCCULT BLOOD, FECES (03/21/2023 5:30 PM CDT) OCCULT BLOOD FECAL POSITIVE 03/21/2023 6:30 PM CDT [facility] STOOL SPECIMEN / Unknown 03/21/2023 5:30 PM CDT Wilbert BUENO BODY FLUIDS AND STOOLS ORD ERABLES Final Result [facility] [address] [place] [address], * (ABNORMAL) LIPID PANEL (02/24/2023 10:45 AM CDT) CHOLESTEROL 203(H) <200 MG/DL 02/24/2023 3:24 PM CDT [facility] TRIGLYCERIDES 75 <150 MG/DL 02/24/2023 3:24 PM CDT [facility] HDL 62 >40.0 MG/DL 02/24/2023 3:24 PM CDT [facility] LDL (CALCULATED) 126(H) <100 MG/DL 02/24/2023 3:24 PM CDT [facility] NON HDL CHOLESTEROL 141(H) <130 MG/DL 02/24/2023 3:24 PM CDT [facility] CHOL/HDL RATIO 3.3 0.0 - 4.5 02/24/2023 3:24 PM CDT [facility] VLDL CALCULATION 15 5 - 55 MG/DL 02/24/2023 3:24 PM CDT [facility] LIPID INTERPRETATION 02/24/2023 3:24 PM CDT [facility] Comment: NIH CONCENSUS REPORT RECOMMENDATIONS: ADULT CHILD LOW RISK: CHOLESTEROL <200 <170 TRIGLYCERIDE <150 --- HDL >=60 --- LDL <100 <110 BORDERLINE: CHOLESTEROL 200-239 170-199 TRIGLYCERIDE 150-199 --- HDL 40-59 --- LDL 100-159 110-129 HIGH RISK: CHOLESTEROL >=240 >=200 TRIGLYCERIDE >=200 --- HDL <40 --- LDL >=160 >=130 02/24/2023 10:4 5 AM CDT Mckenzie Neil MD LABORATORY Final Result [facility] [address] [place] [address], from Last 3 Months or Most Recently [...] 12:54 PM 03/01/2023 8:45 PM Care Teams Materials Engineering Technician Relationship Specialty Start Date End Date Raya Merlos PA [address] [place] [address] PCP - General PHYSICIAN MANAGER LIFE SCIENCES 03/06/23
--- OUTSIDE RECORDS SUMMARY | 2024-12-29 17:10 | XMS_ITS | Encounter Summary ---
Author Organization [facility] Address [address] [place] [address] Care Team Providers Care Process Control Technician Name Role Phone Raya Merlos Primary Care Provider [phone] Karin Alvarado MA Unavailable [phone] Karin Rosen Unavailable Reason for Visit * Reason Onset Date Comments General 11/29/2023 Encounter Details Date Type Department Care Team (Late st Contact Info) Description 11/29/2023 Telephone [facility] - Family Medicine [address] [place] [address] Raya Merlos PA [address] [place] [address] General Social History Tobacco Use [...] Date Recorded PHQ2 TOTAL SCORE 2 03/20/2023 [facility] of Occupat ional Health - Occupational Stress [...] place to sleep or slept in a intermediate (including now)? Patient unable to answer 09/05/2023 [...] with a new provider Dr Jurado in [facility] she has an appt needs refills until she sees new provider * Telephone Encounter - Rupali Vaughn CNA - 11/29/2023 3:25 PM CIRCUIT BREAKER SUPERVISOR [facility] was calling needing refill on Omeprazole, lisinopril, tizanidine, ferrous sulfate, amitriptyline. UIT BREAKER SUPERVISOR documented in this encounter Plan of Treatment Not on file documented as of this encounter Visit Diagnoses Not on filedocumented in this encounter Additional Health Concerns Infection Onset Date Last Indicated Resolved Time ESBL GNR Comment:Urine 09/08/23; 09/08/2023 09/08/2023 documented as of this encounter Care Teams Process Control Technician Relationship Specialty Start Date End Date Raya Merlos PA [address] [place] [address] PCP - General Physician Sales And Service Officer 02/23/21 Karin Alvarado MA Care Coordination Specialist Care Management 01/14/24 02/28/24 Karin Rosen Care Coordination Specialist Care Management 07/24/24 09/07/24 documented as of this encounter
[2024-12-29 17:13] LABS: Influenza A QL RT-PCR Negative (Negative); Influenza B QL RT-PCR Negative (Negative); RSV RNA, RT-PCR Negative (Negative); SARS-CoV-2 RNA PCR Negative (Negative)
[2024-12-29 17:15] LABS: Troponin I 0.063 ng/mL (0.000-0.034)
--- NOTE | 2024-12-29 17:24 | PCCCNOTE ---
Spoke to the pt's son in the waiting room. Stated the pt was diagnosed with Lung cancer and pneumonia last month. Notes she has been living with, her sister which has not been going well. Stated she may need to be placed into facility instead of going back to where she was. Pt is a and he is her only son,(Shalom). Denies having a POA at this time.Pt is a FULL Code. ED provider updated on this status who met with the son and very shortly after did take him to the ICU waiting room. ICU staff notified of his presence.-russell
--- NOTE | 2024-12-29 18:45 | P.HP_ITS ---
H&P: HPI History of Present Illness Date/Time: Date of service 12/29/24 18:45 Chief Complaint: Shortness of breath Narrative: 69-year-old female with history of TAVR at [facility] 2022, hypertension, recent diagnosis of lung cancer with the plan for chemotherapy who presents with shortness of breath. Also lower back pain. EKG was concerning for anterior ST elevation. No chest pain, lower extremity dizziness or syncope Review of Systems Review of Systems: All systems reviewed & are unremarkable except as noted in HPI and below Constitutional: Constitutional: Denies chills, Reports fatigue, Denies fever(s), Denies headache(s) and Denies snoring Eyes: Eyes: Denies eye discharge and Denies loss of vision ENT: Denies dizziness, Denies headache(s), Denies nasal discharge and Denies sore throat Cardiovascular: Cardiovascular: Reports as per HPI, Denies chest pain, Denies syncope, Denies rapid heart rate, Denies leg edema, Reports dyspnea, Reports dyspnea on exertion, Reports orthopnea and Denies paroxysmal nocturnal dyspnea Respiratory: Respiratory: Denies chest congestion, Denies cough, Reports dyspnea, Reports dyspnea on exertion, Denies snoring and Denies wheezing Gastrointestinal: Gastrointestinal: Denies abdominal pain, Denies diarrhea, Denies nausea and Denies vomiting Genitourinary: Genitourinary: Denies hematuria, Denies urinary frequency, Denies dysuria and Denies flank pain Musculoskeletal: Musculoskeletal: Denies myalgias, Denies arthralgias and Denies joint swelling Neurologic: Denies Abnormal speech present, Denies dizziness, Denies syncope, Denies headache(s), Denies focal weakness and Denies loss of vision Psychiatric: Psychiatric: Denies anxiety and Denies depression Endocrine: Endocrine: Denies cold intolerance, Denies fatigue and Denies heat intolerance Hematologic/Lymphatic: Hematologic/Lymphatic: Denies easy bleeding and Denies easy bruising Allergic/Immunologic: Allergic/Immunologic: Denies urticaria and Denies wheezing PMFSH Past Medical History Medical History Hypokalemia Chronic respiratory failure with hypoxia, on home oxygen therapy Chronic obstructive pulmonary disease Bleeding gastric ulcer Hypertension History of blood transfusion Seasonal allergies Tension headache Depression O2 dependent Cervicalgia Low back pain Heart disease Migraines Anxiety Anemia Surgical History Surgical History History of transcatheter aortic valve implantation (REYNA) (2022) via right neck History of laparoscopy History of esophagogastroduodenoscopy (EGD) History of (1980) Family History Family History Father Alcoholism Heart disease Hypertension Grandparent Carcinoma of colon Acute myocardial infarction Social History Social History Social History: Surrogate medical decision maker: rosa Cisneros Code status: Full code. Smoking packs per day: 1 Smoking cigarettes per day: 20.0 Years smoked: 50 Smoking pack-years: 50.00 Smoking status: Former smoker Tobacco type: cigarettes Smoking end date: 09/23/23 Alcohol intake: never Substance use: never Substance use type: does not use Do You Feel Safe in your Home?: Yes Lack of Transportation: YES Lack of Food: Never True Current Housing: I Have Housing Concerned About Future Housing: No Difficulty Paying Gas/Electric Bills: No Difficulty Paying for Meds: No Currently Unemployed: No Education: Associate Degree Difficulty w/ Childcare or Family Care: No Living arrangements: with family Additional living arrangements comments: SISTER Spiritual care concerns: No Meds Home Medications and Allergies Home Medications ?Medication ?Instructions ?Recorded ?Confirmed ?Type cyclobenzaprine 10 mg tablet 5 - 10 mg (0.5 - 1 x 10 mg) PO TID 01/03/24 12/22/24 Rx PRN muscle spasm #90 tabs lisinopril 5 mg tablet 5 mg PO DAILY #30 tabs 01/03/24 12/21/24 Rx metoprolol tartrate 25 mg tablet 25 mg PO BID #60 tabs 01/03/24 12/22/24 Rx omeprazole 40 mg capsule,delayed 40 mg PO DAILY #30 caps 01/03/24 12/22/24 Rx release ferrous sulfate 137 mg (45 mg 137 mg PO DAILY 01/06/24 12/22/24 History iron) tablet,extended release (Slow Fe) alprazolam 0.5 mg tablet 0.5 mg PO TID PRN Anxiety #15 tabs 12/18/24 12/22/24 Rx lidocaine 5 % topical patch 1 patch topical DAILY #30 ea 12/18/24 12/21/24 Rx lisinopril 5 mg tablet 5 mg PO QAM #90 tabs 12/18/24 12/22/24 Rx nebulizer and compressor #1 ea 12/18/24 12/21/24 Rx albuterol sulfate 90 mcg/actuation 1 - 2 inh inhalation Q4-6H PRN 12/21/24 12/22/24 Rx aerosol inhaler shortness of breath or wheezing #8.5 grams fluticasone propionate 50 1 spray intranasal BID PRN nasal 12/21/24 12/21/24 History mcg/actuation nasal congestion spray,suspension (Flonase Allergy Relief) ipratropium 0.5 mg-albuterol 3 mg 3 ml inhalation Q6HRT PRN 12/21/24 12/22/24 History (2.5 mg base)/3 mL nebulization shortness of breath or wheezing soln oxycodone-acetaminophen 5 mg-325 0.5 - 1 tablet PO Q4H PRN pain #10 12/22/24 Rx mg tablet (Percocet) tabs Allergies Allergy/AdvReac Type Severity Reaction Status Date / Time iohexol (From contrast - CT, AdvReac FLUSHED, Verified 12/22/24 08:30 X-RAY) HOT FEELING Vital Signs Vital Signs - 24 hr 12/29/24 14:37 12/29/24 15:58 12/29/24 16:05 Temperature 36.7 C Pulse Rate 100 90 89 Respiratory Rate 20 20 20 Blood Pressure 145/82 H Pulse Oximetry 99 Oxygen Delivery Room Air Oxygen Flow Rate 12/29/24 16:41 12/29/24 16:42 12/29/24 16:50 Temperature Pulse Rate 83 86 Respiratory Rate 22 H 14 Blood Pressure 144/60 H 157/75 H Pulse Oximetry 92 92 92 Oxygen Delivery Nasal Cannula Oxygen Flow Rate 3 Exam Const: General: cooperative, healthy appearing, comfortable, no acute distress, well developed and well nourished Nutritional Appearance: well nourished Orientation/consciousness: patient oriented x3 HENMT: Head: normal to inspection, normocephalic and atraumatic Ears: hearing grossly normal bilaterally and external ears normal Face/Nose/Sinus: Normal external nose present, Normal nares present, normal facial exam and No erythema Face and sinus: normal facial exam and no erythema Mouth: Yes moist mucous membranes and No lip abnormal Throat: uvula midline Eyes: General: appearance normal, both eyes and all related structures Eyelids: eyelids normal Sclera: sclerae normal Neck: Neck: normal visual inspection and full ROM Thyroid: thyroid normal Carotids: no bruits Lymphatic: lymphedema not noted Chest: Chest palpation & inspection: normal inspection of the chest and normal palpation of entire chest wall Resp: Effort & Inspection: normal respiratory effort and not labored Auscultation: clear to auscultation bilaterally, no crackles, no rales and no wheezes Cardio: Jugular venous distension: no JVD Rate: regular rate Rhythm: regular rhythm Heart sounds: S1 normal heart sound present, S2 normal heart sound present, no click, no gallops, no murmurs and no rubs Bruits: no carotid bruits GI: Inspection: normal to inspection and non-distended GI Palp: No abdominal tenderness Auscultation: normal bowel sounds Rectal Exam: deferred : General: No CVA tenderness and Yes no CVA tenderness Back/Spine/Pelvis: Back: no CVA tenderness, No CVA tenderness and No erythema Cervical Spine: cervical ROM normal Skin: General skin exam: normal color, no erythema and no pallor Lesions: no lesions Rashes: no rashes Neuro: General: patient oriented x3 and moves all extremities Cranial nerves: Yes facial symmetry Speech: normal speech Motor exam (neuro): 5/5 motor strength present throughout Extrem: General: normal to inspection and full ROM Psych: Appearance: grossly normal, well kempt and disheveled Affect: normal affect H&P: Results Labs Labs: Short CBC 12/29/24 Range/Units 16:11 WBC 6.2 (4.5-10.0) K/mm3 Hgb 11.5 L (12.0-15.0) g/dL Hct 42.3 (37.0-47.0) % Plt Count 300 (150-375) k/mm3 BMP 12/29/24 16:11 Sodium 141 Potassium 4.0 Chloride 96 L Carbon Dioxide > 40 H BUN 12 Creatinine 0.38 L Glucose 131 H Calcium 9.7 Cardiac Enzymes 12/29/24 Range/Units 16:11 Troponin I 0.063 H* (0.000-0.034) ng/mL Liver Function 12/29/24 Range/Units 16:11 Total Bilirubin 0.5 (0.2-1.3) mg/dL AST 32 (14-36) U/L ALT 15 (6-35) U/L Alkaline Phosphatase 102 (38-126) U/L Albumin 4.0 (3.5-5.1) g/dL Assessment and Plan Assessment and plan (1) Shortness of breath: Code(s): R06.02 - Shortness of breath Status: Acute Plan EKG shows possible anterior ST-elevation. Risks and benefits for cardiac catheterizations history patient and she agrees proceed. We proceed in emergency fashion.
--- NOTE | 2024-12-29 18:54 | WPDCARDPROC ---
Cardiac Cath Procedure Note Date of procedure:: 12/29/24 Performing physician:: Date of service 12/29/2024 Dilan Deleon MD Indication:: Possible STEMI Brief clinical history:: 69-year-old female with history of TAVR at [facility] 2022, hypertension, recent diagnosis of lung cancer with the plan for chemotherapy who presents with shortness of breath. Also lower back pain. EKG was concerning for anterior ST elevation. No chest pain, lower extremity dizziness or syncope Procedure Procedure performed:: 1-Moderate sedation that started at 6:12 p.m. and ended at 6:39 p.m. for total duration 27 minutes using 4mg of Versed and 100mcg fentanyl. The registered nurse was marisela bernard 2-Selective left and right coronary angiogram. 3-Left heart catheterization with measurement of LVEDP and measurement of gradient across aortic valve. 4-Right common femoral arterial angiogram. 5-Deployment of 6 Swiss Angio-Seal. Sedation/Medication given:: Moderate sedation. Access site:: Right common femoral artery. Estimated blood loss:: 10cc Procedure note:: After informed consent patient was brought in to clinical laboratory medical director with the was draped and prepped in usual manner. Moderate sedation was given and the right groin was infiltrated using 1% lidocaine. Five Swiss sheath was obtained using micropuncture needle and the modified Seldinger technique. Selective left coronary angiogram was done using EBU 3 guide catheter catheter with the tip of the catheter placed in the left main coronary artery. Selective right coronary angiogram was done using JR4 catheter with the tip of the catheter placed to the right coronary artery. After that 5 Swiss pigtail catheter was advanced across the aortic valve into the left ventricle with measurement of LVEDP and measurement of gradient across aortic valve. LV angiogram done Right common femoral arterial angiogram was done. Findings:: 1- left coronary artery is a large artery that divides into large LAD, large circumflex artery. Left main has minimal irregularities 2- left anterior descending artery is a large artery that runs and wraps around the apex. Has minimal irregularities 3- leftcircumflex artery is a large artery has minimal irregularities 4- right coronary artery is dominant with minimal irregularities 5- LVEDP was 14 mmhg and no gradient across aortic valve. 6-LV angiogram shows possible apical inferior hypokinesis. Ejection fraction 55%. 6- opening arterial pressure was 146/83 and closing pressure was 134/87 7- right femoral artery angiogram shows no significant disease in the right common femoral artery. Conclusion:: -minimal irregularities Assessment and Plan Assessment and plan (1) Shortness of breath: Code(s): R06.02 - Shortness of breath Status: Acute Assessment and Plan: -shortness of breath -acute on chronic hypoxemic respiratory failure -lung cancer -hypertension -and anxiety -tobacco abuse in remission Plan -obtain echocardiogram. -optimize breathing management -elevated brain atretic peptide however clinically does not appear to be volume overloaded. She could benefit from IV Lasix and as needed. -patient has chronic respiratory failure on 3 L nasal cannula at home. Optimize pulmonary status
--- NOTE | 2024-12-29 19:09 | ADMGEN ---
Addendum entered by Addis Rodriguez RN 12/29/24 19:11: Report received from laborer mine RNEliza, at 1846 Original Note: This patient, Inez Delgado, was admitted to Intensive Care Unit-5. Patient/family oriented to hospital policies and general routines including ID bracelet, bed and alarms, visiting hours, pain management, procedures, bathroom and other care routines, personal items, smoking policy, room service/diet, and visiting hours. Information on how to activate the Rapid Response Team has been discussed. Patient/Family are encouraged to report perceived risks to care and to ask questions if they do not understand what they are told or what they should do. Pt received from laborer mine.
--- NOTE | 2024-12-29 19:34 | ADMGEN ---
This patient, Inez Delgado, was admitted to Intensive Care Unit-5. Patient/family oriented to hospital policies and general routines including ID bracelet, bed and alarms, visiting hours, pain management, procedures, bathroom and other care routines, personal items, smoking policy, room service/diet, and visiting hours. Information on how to activate the Rapid Response Team has been discussed. Patient/Family are encouraged to report perceived risks to care and to ask questions if they do not understand what they are told or what they should do.
[2024-12-29] MEDS: HYDROcodone/acetaminophen (*CRX) 5-325 MG TABLET 1 TAB PO (19:35)
[2024-12-29] MEDS: ALPRAZolam (*CRX) 0.25 MG TABLET PO (21:54)
[2024-12-29] MEDS: METOPROLOL TARTRATE 25 MG TABLET PO (21:54)
[2024-12-29] MEDS: SODIUM CHLORIDE 0.9% IV 1,000 ML 100 ML IV CONT (21:55)
[2024-12-30] VITALS (14 sets, daily range): BP systolic 115–145; BP diastolic 59–80; PULSE 60–106; RESP 16–24; TEMP 36.6–37.3; O2SAT 92–100
[2024-12-30] MEDS: HYDROcodone/acetaminophen (*CRX) 5-325 MG TABLET 1 TAB PO ×5 (01:57→20:54)
[2024-12-30 03:56] LABS: Anion Gap 5 mmol/L (4-12); Blood Urea Nitrogen 20 mg/dL (7-17); Calcium 9.2 mg/dL (8.4-10.2); Carbon Dioxide 38 mmol/L (22-30); Chloride 97 mmol/L (98-107); Estimated CRCL calculation 70 ml/min; Estimated Glomerular Filt Rate > 60; Glucose 254 mg/dL (65-110); Potassium 4.5 mmol/L (3.4-5.0); Sodium 140 mmol/L (137-145)
[2024-12-30] MEDS: IPRATROPIUM 0.5 MG/ALBUTEROL SULFATE 2.5 MG AMPUL.NEB 3 ML INHALATION (06:18)
[2024-12-30] MEDS: ALPRAZolam (*CRX) 0.25 MG TABLET PO ×2 (06:59→16:43)
[2024-12-30] MEDS: METOPROLOL TARTRATE 25 MG TABLET PO ×2 (08:33→20:05)
[2024-12-30] MEDS: lisinopriL 5 MG TABLET PO (08:33)
--- NOTE | 2024-12-30 08:39 | WPDCNINT ---
Assessment and Plan Assessment and plan (1) Shortness of breath: Code(s): R06.02 - Shortness of breath Status: Acute Assessment and Plan: Patient presented with shortness of breath which was initially thought to be STEMI but her cardiac catheterization was negative. Patient has underlying COPD and also recent diagnosis of lung cancer. Patient is allergic to IV iodine contrast Continue bronchodilator. Hold steroids as patient does not have any significant wheezing or respiratory distress at this time Check V/Q scan, lower extremity Dopplers, echo She is currently on 3 L home oxygen and not in any respiratory distress (2) Congestive heart failure: Code(s): I50.9 - Heart failure, unspecified Status: Acute Assessment and Plan: Patient has elevated BNP but her LVEDP was not high on the left heart catheterization. I suspect patient have cor pulmonale from COPD leading to pulmonary hypertension Echo is ordered and pending (3) Hypertension: Code(s): I10 - Essential (primary) hypertension Status: Acute Assessment and Plan: Continue metoprolol and lisinopril (4) Non-small cell lung cancer: Code(s): C34.90 - Malignant neoplasm of unspecified part of unspecified bronchus or lung Status: Acute Assessment and Plan: Recently diagnosed with non small cell lung cancer stage IV. Patient was planning to start chemotherapy as an outpatient CT ordered to further evaluate no intervention at this time (5) Chronic respiratory failure with hypoxia, on home oxygen therapy: Code(s): J96.11 - Chronic respiratory failure with hypoxia; Z99.81 - Dependence on supplemental oxygen Status: Chronic Assessment and Plan: See above (6) Lower extremity edema: Code(s): R60.0 - Localized edema Status: Acute Assessment and Plan: Check lower extremity Doppler Could be right heart failure from cor pulmonale. Check echo (7) Hyperglycemia: Code(s): R73.9 - Hyperglycemia, unspecified Status: Acute Assessment and Plan: Sliding scale insulin ordered Check HbA1c Plan DVT prophylaxis -Lovenox Stress ulcer prophylaxis - Nutrition -diet ordered Code Status - Full Code Transfer out of ICU Incentive spirometry [employer] Line T[employer]er Consult Note Consult date: 12/30/24 HPI: Inez Delgado is a 69 year old female with history off chronic obstructive pulmonary disease, chronic respiratory failure on home oxygen 3 L, bleeding ulcers, anemia, depression, anxiety, TAVR at [facility] 2022, hypertension and recent diagnosis of non-small cell lung cancer stage IV who was also recently treated for pneumonia last month at [facility] returned to the hospital ER with chief complaint of shortness of breath. Patient states that she has chronic shortness of breath and is on oxygen but yesterday it got worse. She is unable to tell me whether she was having any worsening of her cough has she states that she was so 'frizzled' yesterday. She denies any fever. She denies any chest pain but states that she was having pain in her back. She states she has chronic joint and back pain. She denies any nausea vomiting abdominal pain diarrhea constipation dysuria hematochezia melena. She does notice some swelling in the legs. All other systems were reviewed and were negative In ER her EKG was suggestive of anterior ST segment elevation NM and Cardiology were consulted patient was taken to cardiac catheterization lab. Cardiac catheterization showed no significant coronary disease ejection fraction 55% and normal LVEDP. Patient was admitted to ICU for further evaluation management. Patient at this time is sitting in chair and denies any other complaints. Review of Systems Review of Systems: ROS unobtainable: Yes unobtainable due to endotracheal tube, unobtainable due to medical condition and unobtainable due to mental status PMFSH Past Medical History Medical History Hypokalemia Chronic respiratory failure with hypoxia, on home oxygen therapy Chronic obstructive pulmonary disease Bleeding gastric ulcer Hypertension History of blood transfusion Seasonal allergies Tension headache Depression O2 dependent Cervicalgia Low back pain Heart disease Migraines Anxiety Anemia Surgical History Surgical History History of transcatheter aortic valve implantation (REYNA) (2022) via right neck History of laparoscopy History of esophagogastroduodenoscopy (EGD) History of (1980) Family History Family History Father Alcoholism Heart disease Hypertension Grandparent Carcinoma of colon Acute myocardial infarction Social History Social History Social History: Surrogate medical decision maker: Shara Martin, rosa Code status: Full code. Smoking packs per day: 1 Smoking cigarettes per day: 20.0 Years smoked: 50 Smoking pack-years: 50.00 Smoking status: Former smoker Tobacco type: cigarettes Smoking end date: 09/23/23 Alcohol intake: never Substance use: never Substance use type: does not use Do You Feel Safe in your Home?: Yes Lack of Transportation: No Lack of Food: Never True Current Housing: I Have Housing Concerned About Future Housing: No Difficulty Paying Gas/Electric Bills: No Difficulty Paying for Meds: No Currently Unemployed: No Education: Associate Degree Difficulty w/ Childcare or Family Care: No Living arrangements: with family Additional living arrangements comments: SISTER Spiritual care concerns: No Meds Home Medications and Allergies Home Medications ?Medication ?Instructions ?Recorded ?Confirmed ?Type cyclobenzaprine 10 mg tablet 5 - 10 mg (0.5 - 1 x 10 mg) PO TID 01/03/24 12/29/24 Rx PRN muscle spasm #90 tabs lisinopril 5 mg tablet 5 mg PO DAILY #30 tabs 01/03/24 12/29/24 Rx metoprolol tartrate 25 mg tablet 25 mg PO BID #60 tabs 01/03/24 12/29/24 Rx omeprazole 40 mg capsule,delayed 40 mg PO DAILY #30 caps 01/03/24 12/29/24 Rx release ferrous sulfate 137 mg (45 mg 137 mg PO DAILY 01/06/24 12/29/24 History iron) tablet,extended release (Slow Fe) alprazolam 0.5 mg tablet 0.5 mg PO TID PRN Anxiety #15 tabs 12/18/24 12/29/24 Rx lisinopril 5 mg tablet 5 mg PO QAM #90 tabs 12/18/24 12/29/24 Rx nebulizer and compressor #1 ea 12/18/24 12/29/24 Rx albuterol sulfate 90 mcg/actuation 1 - 2 inh inhalation Q4-6H PRN 12/21/24 12/29/24 Rx aerosol inhaler shortness of breath or wheezing #8.5 grams ipratropium 0.5 mg-albuterol 3 mg 3 ml inhalation Q6HRT PRN 12/21/24 12/29/24 History (2.5 mg base)/3 mL nebulization shortness of breath or wheezing soln Allergies Allergy/AdvReac Type Severity Reaction Status Date / Time iohexol (From contrast - CT, AdvReac FLUSHED, Verified 12/22/24 08:30 X-RAY) HOT FEELING Vital Signs Vital Signs - 24 hr 12/29/24 14:37 12/29/24 15:58 12/29/24 16:05 Temperature 36.7 C Pulse Rate 100 90 89 Respiratory Rate 20 20 20 Blood Pressure 145/82 H Pulse Oximetry 99 Oxygen Delivery Room Air Oxygen Flow Rate 12/29/24 16:41 12/29/24 16:42 12/29/24 16:50 Temperature Pulse Rate 83 86 Respiratory Rate 22 H 14 Blood Pressure 144/60 H 157/75 H Pulse Oximetry 92 92 92 Oxygen Delivery Nasal Cannula Oxygen Flow Rate 3 12/29/24 19:13 12/29/24 19:28 12/29/24 19:43 Temperature 36.9 C 36.6 C Pulse Rate 97 97 94 Respiratory Rate 20 20 20 Blood Pressure 152/89 H 150/96 H 123/93 H Pulse Oximetry 97 98 100 Oxygen Delivery Oxygen Flow Rate 12/29/24 19:58 12/29/24 20:00 12/29/24 20:00 Temperature 36.6 C Pulse Rate 97 97 76 Respiratory Rate 22 H 22 H Blood Pressure 144/97 H Pulse Oximetry 98 98 Oxygen Delivery Nasal Cannula Oxygen Flow Rate 3 12/29/24 20:13 12/29/24 20:43 12/29/24 21:13 Temperature 36.6 C Pulse Rate 101 H 107 H 111 H Respiratory Rate 27 H 20 22 H Blood Pressure 144/97 H 154/83 H 135/79 Pulse Oximetry 97 96 94 Oxygen Delivery Oxygen Flow Rate 12/29/24 21:30 12/29/24 22:00 12/29/24 22:13 Temperature Pulse Rate 75 106 H Respiratory Rate 22 H Blood Pressure 131/77 Pulse Oximetry 98 92 Oxygen Delivery Nasal Cannula Oxygen Flow Rate 3 12/30/24 00:00 12/30/24 00:00 12/30/24 02:00 Temperature Pulse Rate 106 H 103 H 74 Respiratory Rate 22 H Blood Pressure Pulse Oximetry 92 Oxygen Delivery Nasal Cannula Oxygen Flow Rate 3 12/30/24 02:00 12/30/24 04:00 12/30/24 04:00 Temperature Pulse Rate 74 106 H 76 Respiratory Rate 22 H 22 H Blood Pressure 124/67 Pulse Oximetry 97 92 Oxygen Delivery Nasal Cannula Oxygen Flow Rate 3 12/30/24 04:00 12/30/24 06:00 12/30/24 06:00 Temperature Pulse Rate 76 90 90 Respiratory Rate 24 H 24 H Blood Pressure 118/59 L 134/74 Pulse Oximetry 98 100 Oxygen Delivery Oxygen Flow Rate 12/30/24 06:20 12/30/24 08:33 Temperature Pulse Rate 81 86 Respiratory Rate 20 Blood Pressure Pulse Oximetry Oxygen Delivery Oxygen Flow Rate Exam Narrative: General: Pt is alert awake and in NAD, sitting in chair on 3 L oxygen Lungs/Chest: Trachea central Clear but overall decreased bilateral BS B/L, No crackles or wheezing. Cardiac: RRR. Normal S1 S2. No murmurs Circulation: Pedal pulses are intact and symmetrical. Abdomen: Normal bowel sounds.. Soft. NT. ND. Extremities: Bilateral mild pitting edema, no hematoma at the catheterization site : Dodd in place Neurologic: Follows commands. Moves all 4 extremities PERRL AO x3 Skin: Healing incision wound at the site of port insertion in left anterior chest Results Labs 12/29/24 16:11 12/30/24 03:32 Labs: Short CBC 12/29/24 Range/Units 16:11 WBC 6.2 (4.5-10.0) K/mm3 Hgb 11.5 L (12.0-15.0) g/dL Hct 42.3 (37.0-47.0) % Plt Count 300 (150-375) k/mm3 BMP 12/29/24 12/30/24 16:11 03:32 Sodium 141 140 Potassium 4.0 4.5 Chloride 96 L 97 L Carbon Dioxide > 40 H 38 H BUN 12 20 H Creatinine 0.38 L 0.54 L Glucose 131 H 254 H Calcium 9.7 9.2 Cardiac Enzymes 12/29/24 Range/Units 16:11 Troponin I 0.063 H* (0.000-0.034) ng/mL Liver Function 12/29/24 Range/Units 16:11 Total Bilirubin 0.5 (0.2-1.3) mg/dL AST 32 (14-36) U/L ALT 15 (6-35) U/L Alkaline Phosphatase 102 (38-126) U/L Albumin 4.0 (3.5-5.1) g/dL
[2024-12-30] MEDS: ENOXAPARIN 40 MG/0.4 ML SYRINGE SUB-Q (10:06)
--- NOTE | 2024-12-30 10:56 | P.PNCA_ITS ---
Progress Note: A&P Assessment and Plan (1) Shortness of breath: Code(s): R06.02 - Shortness of breath Status: Acute Assessment and Plan: -shortness breath is multifactorial including pneumonia, lung cancer, COPD/acute on chronic hypoxemic respiratory failure. It is noncardiac has noted by her coronary angiogram yesterday showing no obstructive coronary disease. Echocardiogram is pending because of a history of TAVR but unlikely to be contributing to her symptoms. Okay to move out of ICU. Will consult hospitalist. No further cardiac workup indicated be on the echocardiogram (2) Hypertension: Code(s): I10 - Essential (primary) hypertension Status: Acute Assessment and Plan: Continue metoprolol (3) Non-small cell lung cancer: Code(s): C34.90 - Malignant neoplasm of unspecified part of unspecified bronchus or lung Status: Acute Assessment and Plan: Per oncology/pulmonary (4) Chronic obstructive pulmonary disease: Code(s): J44.9 - Chronic obstructive pulmonary disease, unspecified Status: Chronic Assessment and Plan: Consult hospitalist. Plan -obtain echocardiogram. -optimize breathing management -patient has chronic respiratory failure on 3 L nasal cannula at home. Optimize pulmonary status Subjective Date/time seen: 12/30/24 10:56 Interval history: 69-year-old female with a history of a TAVR and recent diagnosis of lung cancer and pneumonia. Admitted for shortness of breath. EKG initially showed some concerns for an ST-elevation myocardial infarction. Patient was taken emergently to cardiac catheterization lab and she was found have no obstructive coronary disease. Date of service 12/30/2024: No groin pain. No chest pain. No shortness breath at rest. Review of Systems Review of Systems: All systems reviewed & are unremarkable except as noted in HPI and below Constitutional: Constitutional: Denies chills, Denies fatigue, Denies fever(s), Denies headache(s) and Denies snoring Eyes: Eyes: Denies eye discharge and Denies loss of vision ENT: Denies dizziness, Denies headache(s), Denies nasal discharge and Denies sore throat Cardiovascular: Cardiovascular: Reports as per HPI, Denies chest pain, Denies syncope, Denies rapid heart rate, Denies leg edema, Denies dyspnea, Denies dyspnea on exertion, Denies orthopnea and Denies paroxysmal nocturnal dyspnea Respiratory: Respiratory: Denies chest congestion, Denies cough, Reports dyspnea, Reports dyspnea on exertion, Denies snoring and Denies wheezing Gastrointestinal: Gastrointestinal: Denies abdominal pain, Denies diarrhea, Denies nausea and Denies vomiting Genitourinary: Genitourinary: Denies hematuria, Denies urinary frequency, Denies dysuria and Denies flank pain Musculoskeletal: Musculoskeletal: Denies myalgias, Denies arthralgias and Denies joint swelling Neurologic: Denies Abnormal speech present, Denies dizziness, Denies syncope, Denies headache(s), Denies focal weakness and Denies loss of vision Psychiatric: Psychiatric: Denies anxiety and Denies depression Endocrine: Endocrine: Denies cold intolerance, Denies fatigue and Denies heat intolerance Hematologic/Lymphatic: Hematologic/Lymphatic: Denies easy bleeding and Denies easy bruising Allergic/Immunologic: Allergic/Immunologic: Denies urticaria and Denies wheezing Exam Const: General: cooperative, healthy appearing, comfortable, no acute distress, well developed and well nourished Nutritional Appearance: well nourished Orientation/consciousness: patient oriented x3 HENMT: Head: normal to inspection, normocephalic and atraumatic Ears: hearing grossly normal bilaterally and external ears normal Face/Nose/Sinus: Normal nares present, normal facial exam and No erythema Face and sinus: normal facial exam and no erythema Mouth: Yes moist mucous membranes and No lip abnormal Throat: uvula midline Eyes: General: appearance normal, both eyes and all related structures Eyelids: eyelids normal Sclera: sclerae normal Neck: Neck: normal visual inspection and full ROM Thyroid: thyroid normal Carotids: no bruits Lymphatic: lymphedema not noted Chest: Chest palpation & inspection: normal inspection of the chest and normal palpation of entire chest wall Resp: Effort & Inspection: normal respiratory effort and not labored Auscultation: clear to auscultation bilaterally, no crackles, no rales and no wheezes Cardio: Jugular venous distension: no JVD Rate: regular rate Rhythm: regular rhythm Heart sounds: S1 normal heart sound present, S2 normal heart sound present, no click, no gallops, no murmurs and no rubs Bruits: no carotid bruits GI: Inspection: normal to inspection and non-distended Auscultation: normal bowel sounds Rectal Exam: deferred : General: No CVA tenderness and Yes no CVA tenderness Back/Spine/Pelvis: Back: no CVA tenderness, No CVA tenderness and No erythema Skin: General skin exam: normal color, no erythema and no pallor Lesions: no lesions Rashes: no rashes Neuro: General: patient oriented x3 and moves all extremities Cranial nerves: Yes facial symmetry Speech: normal speech and No Abnormal speech present Motor exam (neuro): 5/5 motor strength present throughout Extrem: General: normal to inspection and full ROM Other: Right groin is stable without hematoma, ecchymosis or bruit. Psych: Appearance: grossly normal, well kempt and disheveled Affect: normal affect Objective Data Vital Signs Vital Signs: Vital Signs - 24 hr 12/29/24 14:37 12/29/24 15:58 12/29/24 16:05 Temperature 36.7 C Pulse Rate 100 90 89 Respiratory Rate 20 20 20 Blood Pressure 145/82 H Pulse Oximetry 99 Oxygen Delivery Room Air Oxygen Flow Rate 12/29/24 16:41 12/29/24 16:42 12/29/24 16:50 Temperature Pulse Rate 83 86 Respiratory Rate 22 H 14 Blood Pressure 144/60 H 157/75 H Pulse Oximetry 92 92 92 Oxygen Delivery Nasal Cannula Oxygen Flow Rate 3 12/29/24 19:13 12/29/24 19:28 12/29/24 19:43 Temperature 36.9 C 36.6 C Pulse Rate 97 97 94 Respiratory Rate 20 20 20 Blood Pressure 152/89 H 150/96 H 123/93 H Pulse Oximetry 97 98 100 Oxygen Delivery Oxygen Flow Rate 12/29/24 19:58 12/29/24 20:00 12/29/24 20:00 Temperature 36.6 C Pulse Rate 97 97 76 Respiratory Rate 22 H 22 H Blood Pressure 144/97 H Pulse Oximetry 98 98 Oxygen Delivery Nasal Cannula Oxygen Flow Rate 3 12/29/24 20:13 12/29/24 20:43 12/29/24 21:13 Temperature 36.6 C Pulse Rate 101 H 107 H 111 H Respiratory Rate 27 H 20 22 H Blood Pressure 144/97 H 154/83 H 135/79 Pulse Oximetry 97 96 94 Oxygen Delivery Oxygen Flow Rate 12/29/24 21:30 12/29/24 22:00 12/29/24 22:13 Temperature Pulse Rate 75 106 H Respiratory Rate 22 H Blood Pressure 131/77 Pulse Oximetry 98 92 Oxygen Delivery Nasal Cannula Oxygen Flow Rate 3 12/30/24 00:00 12/30/24 00:00 12/30/24 02:00 Temperature Pulse Rate 106 H 103 H 74 Respiratory Rate 22 H Blood Pressure Pulse Oximetry 92 Oxygen Delivery Nasal Cannula Oxygen Flow Rate 3 12/30/24 02:00 12/30/24 04:00 12/30/24 04:00 Temperature Pulse Rate 74 106 H 76 Respiratory Rate 22 H 22 H Blood Pressure 124/67 Pulse Oximetry 97 92 Oxygen Delivery Nasal Cannula Oxygen Flow Rate 3 12/30/24 04:00 12/30/24 06:00 12/30/24 06:00 Temperature Pulse Rate 76 90 90 Respiratory Rate 24 H 24 H Blood Pressure 118/59 L 134/74 Pulse Oximetry 98 100 Oxygen Delivery Oxygen Flow Rate 12/30/24 06:20 12/30/24 08:00 12/30/24 08:00 Temperature Pulse Rate 81 86 79 Respiratory Rate 20 20 Blood Pressure Pulse Oximetry 100 Oxygen Delivery Nasal Cannula Oxygen Flow Rate 3 12/30/24 08:00 12/30/24 08:33 12/30/24 10:00 Temperature 36.8 C Pulse Rate 76 86 71 Respiratory Rate 21 H 22 H Blood Pressure 131/68 121/65 Pulse Oximetry 100 98 Oxygen Delivery Oxygen Flow Rate 12/30/24 10:00 Temperature Pulse Rate 71 Respiratory Rate Blood Pressure Pulse Oximetry Oxygen Delivery Oxygen Flow Rate Intake/Output Intake/Output: Intake & Output 12/27/24 12/28/24 12/29/24 12/30/24 23:59 23:59 23:59 23:59 Intake Total 480 Output Total 600 Balance -120 Meds/Results Medications: Active Medications Generic Name Dose Route Start Last Admin Trade Name Freq PRN Reason Stop Dose Admin Hydrocodone Bitart/Acetaminophen 1 tab 12/29/24 19:13 12/30/24 06:59 Hydrocodone/Acetaminophen (*Crx) 5-325 Mg Tablet PO 1 tab Q4-6H PRN Administration Pain Rated 1-3 Albuterol/Ipratropium 3 ml 12/29/24 19:13 12/30/24 06:18 Ipratropium 0.5 Mg/Albuterol Sulfate 2.5 Mg Ampul.Neb 3 Ml INHALATION 3 ml Q6HRT PRN Administration Shortness Of Breath Alprazolam 0.25 mg 12/29/24 19:13 12/30/24 06:59 Alprazolam (*Crx) 0.25 Mg Tablet PO 0.25 mg TID PRN Administration Anxiety Dextrose 12.5 gm 12/30/24 08:55 Dextrose 50% 25 Gm/50 Ml Syringe IV PUSH PRN PRN Hypoglycemia Protocol Enoxaparin Sodium 40 mg 12/30/24 09:00 12/30/24 10:06 Enoxaparin 40 Mg/0.4 Ml Syringe SUB-Q 40 mg DAILY MINGO Administration Glucagon 1 mg 12/30/24 08:55 Glucagon For Inj 1 Mg Vial IM PRN PRN Hypoglycemia Protocol Glucose 15 gm 12/30/24 08:55 Glucose Oral Gel 15 Gm Of Glucse In 37.5 Gm Tube PO PRN PRN Hypoglycemia Protocol Dextrose 1,000 mls @ 100 mls/hr 12/30/24 08:55 Dextrose 5% 1,000 Ml IVPB PRN PRN Hypoglycemia Protocol Insulin Aspart 3 - 6 units 12/30/24 12:00 Insulin Aspart (*Bkc) 100 Units/Ml SUB-Q TIDWM MINGO Protocol Insulin Aspart 1 - 3 units 12/30/24 21:00 Insulin Aspart (*Bkc) 100 Units/Ml SUB-Q HS MINGO Protocol Lisinopril 5 mg 12/30/24 09:00 12/30/24 08:33 Lisinopril 5 Mg Tablet PO 5 mg QAM MINGO Administration Metoprolol Tartrate 25 mg 12/29/24 21:00 12/30/24 08:33 Metoprolol Tartrate 25 Mg Tablet PO 25 mg Q12HR MINGO Administration Ondansetron HCl 4 mg 12/29/24 19:13 Ondansetron Hcl Odt 4 Mg Tablet PO 12/30/24 19:12 Q4-6H PRN Nausea Perflutren Lipid Microsphere 0 ml 12/29/24 19:13 Perflutren Lipid Microspheres 1.5 Ml Vial Diluted To 10 Ml Total Volume IV PUSH ONCE PRN adequate visualization Protocol Labs Labs: Laboratory Results - last 24 hr 12/29/24 12/30/24 16:11 03:32 WBC 6.2 RBC 4.67 Hgb 11.5 L Hct 42.3 MCV 90.6 MCH 24.6 L MCHC 27.2 L RDW 17.2 H Plt Count 300 MPV 10.2 Immature Gran % (Auto) 0.3 Neut % (Auto) 80.3 H Lymph % (Auto) 10.9 L [place] % (Auto) 6.6 Eos % (Auto) 1.1 Baso % (Auto) 0.8 Lymph # (Auto) 0.68 L [place] # (Auto) 0.4 Eos # (Auto) 0.1 Baso # (Auto) 0.1 Abs Immat Gran (auto) 0.02 Absolute Neuts (auto) 5.0 Absolute Nucleated RBC 0.000 Band Neutrophils % Not Reportable Nucleated RBC % 0.0 Platelet Estimate Adequate Hypochromasia 1+ Ovalocytes 1+ Schistocytes None seen PT 13.4 INR 1.0 APTT 29.5 Sodium 141 140 Potassium 4.0 4.5 Chloride 96 L 97 L Carbon Dioxide > 40 H 38 H Anion Gap 5 BUN 12 20 H Creatinine 0.38 L 0.54 L Estim Creat Clear Calc 96 70 Estimated GFR > 60 > 60 Glucose 131 H 254 H Calcium 9.7 9.2 Total Bilirubin 0.5 AST 32 ALT 15 Alkaline Phosphatase 102 Troponin I 0.063 H* NT-Pro-B Natriuret Pep 52508 H Total Protein 8.0 Albumin 4.0 Influenza A (RT-PCR) Negative Influenza B (RT-PCR) Negative RSV (RT-PCR) Negative SARS-CoV-2 RNA (RT-PCR) Negative
[2024-12-30 11:50] LABS: Glucose Point of Care 148 mg/dl (65-105)
--- NOTE | 2024-12-30 12:45 | P.CONIM_ITS ---
Assessment and Plan Assessment and plan (1) Pulmonary embolism: Code(s): I26.99 - Other pulmonary embolism without acute cor pulmonale Status: Acute Assessment and Plan: V/Q scan showed high probability for pulmonary embolism (risk factors include malignancy and recent hospitalization). * Currently on heparin drip. * Lower extremity venous Doppler ultrasounds are pending. * Echocardiogram also pending. (2) Shortness of breath: Code(s): R06.02 - Shortness of breath Status: Acute Assessment and Plan: Patient presented to the ED with complaints of shortness of breath with initial concerns for STEMI given EKG changes. Chest CT showed improved aeration and interval resolution of the right-sided effusion. She is at her baseline oxygen requirement and there is no evidence on examination to suggest acute COPD exacerbation. Possible heart failure given markedly elevated BNP. Pulmonary embolism remains a consideration with lower extremity edema and known lung cancer. * V/Q scan shows high probability for PE. * Check lower extremity venous Doppler ultrasounds. * Continue maintenance inhalers and bronchodilators. * Echocardiogram is pending. (3) ST segment changes on electrocardiogram: Code(s): R94.31 - Abnormal electrocardiogram [ECG] [EKG] Status: Acute Assessment and Plan: EKG showed ST segment elevations with concerns for possible anterior PA although patient had no chest pain. * Cardiac catheterization on 12/29/2024 showed minimal irregularities. * LV angiogram showed possible apical inferior hypokinesis and an EF of 55%. (4) Congestive heart failure: Code(s): I50.9 - Heart failure, unspecified Status: Acute Assessment and Plan: Findings concerning for congestive heart failure including lower extremity edema and significantly elevated BNP. * Echocardiogram is pending but there were areas of possible hypokinesis noted on cardiac catheterization. * Possible cor pulmonale from underlying lung disease. (5) Non-small cell carcinoma of right lung, stage 4: Onset Date: 11/2024 Code(s): C34.91 - Malignant neoplasm of unspecified part of right bronchus or lung Status: Acute Assessment and Plan: Recent diagnosis of stage IV non-small cell lung adenocarcinoma arising in a pleural based mass in the right mid to lower lobe. * Post thoracentesis for malignant effusion last month with resolution on imaging today. * Plans for chemotherapy with Dr. Lozano. (6) Chronic obstructive pulmonary disease: Code(s): J44.9 - Chronic obstructive pulmonary disease, unspecified Status: Chronic Assessment and Plan: No evidence of acute exacerbation on examination. * Remains on chronic oxygen requirements at 3 L. * Continue maintenance inhalers and p.r.n. bronchodilators. * No indication for steroids at this time. (7) Hypertension: Code(s): I10 - Essential (primary) hypertension Status: Acute Assessment and Plan: Blood pressures were in the 140s to 150 systolic on arrival to the ED yesterday. * Improving today with recent blood pressure of 121/65. * Continue lisinopril and metoprolol with daily monitoring. (8) Hyperglycemia: Code(s): R73.9 - Hyperglycemia, unspecified Status: Acute Assessment and Plan: Several random glucoses over 200 last admission and this admission, in part due to steroids and likely impaired fasting glucose. * Hemoglobin A1c was 4.9% last month and is 5.3% today. * Close follow-up with primary care provider. Plan Thank you for allowing us to participate in this patient's care. Please do not hesitate to contact us with any questions. HPI Date of Consult Consult date: 12/30/24 Requesting Physician: Dilan Deleon MD Primary Care Provider: UNKNOWN,DOCTOR Consult Narrative Reason for consult: Medical management Narrative: This is a 69-year-old female with history of migraine headaches, hypertension, aortic valve replacement, diastolic dysfunction, chronic obstructive pulmonary disease, chronic respiratory failure on home oxygen, moderate pulmonary hypertension on echo in December 2024, bleeding ulcers, gastritis, anemia, depression, anxiety, and recent diagnosis of non-small cell lung adenocarcinoma arising in the right middle lobe with malignant pleural effusion whom the hospitalist service has been consulted for help managing her medical conditions. She was admitted through the emergency department last night with complaints of weakness and increasing shortness of breath which seemed to worsen during the middle of the night while she was sleeping. She is short of breath even with conversation. EKG done upon arrival showed ST elevations in multiple leads concerning for possible MRI and she was taken urgently to the operations label clerk where she was found to have minimal coronary irregularities. Her initial troponin was 0.063 and was not trended. ProB[place] 45904 which is markedly elevated compared to a BNP of 829 about 3 weeks ago. On examination she was noted to have lower extremity edema and a V/Q scan read this evening showed high probability for pulmonary embolism. She has since been started on a heparin drip. At the time my evaluation she feels about the same, no worse. She denies fever, chills, sweats, syncope, near syncope, chest pain, pleuritic pain, palpitations, productive cough, vomiting, diarrhea, and calf pain. Review of Systems 2 Review of Systems: 12 systems were reviewed and are negativ e except for as per HPI. [facility] Past Medical History Medical History (Updated 12/30/24 @ 21:13 by Miley Rodrigez PA-C) Moderate pulmonic regurgitation and right ventricular dilation by prior echocardiogram Moderate pulmonary hypertension Diastolic dysfunction grade 1 diastolic dysfunction on echo in December 2024 with an EF of 60 to 65% Non-small cell carcinoma of right lung, stage 4 (11/2024) arising in a pleural based mass in the right mid to lower lung with malignant effusion Chronic respiratory failure with hypoxia, on home oxygen therapy Chronic obstructive pulmonary disease Bleeding gastric ulcer Hypertension History of blood transfusion Seasonal allergies Tension headache Depression Cervicalgia Low back pain Migraines Anxiety Anemia Surgical History Surgical History (Updated 12/30/24 @ 13:59 by Miley Rodrigez PA-C) History of cardiac catheterization (12/29/24) minimal irregularities with possible apical inferior hypokinesis and an EF 55% History of transcatheter aortic valve implantation (REYNA) (2022) via right neck History of laparoscopy History of esophagogastroduodenoscopy (EGD) History of (1980) Family History Family History Father Alcoholism Heart disease Hypertension Grandparent Carcinoma of colon Acute myocardial infarction Social History Social History Social History: Surrogate medical decision maker: rosa Cisneros Code status: Full code. Smoking packs per day: 1 Smoking cigarettes per day: 20.0 Years smoked: 50 Smoking pack-years: 50.00 Smoking status: Former smoker Tobacco type: cigarettes Smoking end date: 09/23/23 Alcohol intake: never Substance use: never Substance use type: does not use Do You Feel Safe in your Home?: Yes Lack of Transportation: No Lack of Food: Never True Current Housing: I Have Housing Concerned About Future Housing: No Difficulty Paying Gas/Electric Bills: No Difficulty Paying for Meds: No Currently Unemployed: No Education: Associate Degree Difficulty w/ Childcare or Family Care: No Living arrangements: with family Additional living arrangements comments: SISTER Spiritual care concerns: No Meds Home Medications and Allergies Home Medications ?Medication ?Instructions ?Recorded ?Confirmed ?Type cyclobenzaprine 10 mg tablet 5 - 10 mg (0.5 - 1 x 10 mg) PO TID 01/03/24 12/29/24 Rx PRN muscle spasm #90 tabs lisinopril 5 mg tablet 5 mg PO DAILY #30 tabs 01/03/24 12/29/24 Rx metoprolol tartrate 25 mg tablet 25 mg PO BID #60 tabs 01/03/24 12/29/24 Rx omeprazole 40 mg capsule,delayed 40 mg PO DAILY #30 caps 01/03/24 12/29/24 Rx release ferrous sulfate 137 mg (45 mg 137 mg PO DAILY 01/06/24 12/29/24 History iron) tablet,extended release (Slow Fe) alprazolam 0.5 mg tablet 0.5 mg PO TID PRN Anxiety #15 tabs 12/18/24 12/29/24 Rx lisinopril 5 mg tablet 5 mg PO QAM #90 tabs 12/18/24 12/29/24 Rx nebulizer and compressor #1 ea 12/18/24 12/29/24 Rx albuterol sulfate 90 mcg/actuation 1 - 2 inh inhalation Q4-6H PRN 12/21/24 12/29/24 Rx aerosol inhaler shortness of breath or wheezing #8.5 grams ipratropium 0.5 mg-albuterol 3 mg 3 ml inhalation Q6HRT PRN 12/21/24 12/29/24 History (2.5 mg base)/3 mL nebulization shortness of breath or wheezing soln Allergies Allergy/AdvReac Type Severity Reaction Status Date / Time iohexol (From contrast - CT, AdvReac FLUSHED, Verified 12/22/24 08:30 X-RAY) HOT FEELING Vital Signs Vital Signs - 24 hr 12/29/24 14:37 12/29/24 15:58 12/29/24 16:05 Temperature 98.1 F Pulse Rate 100 90 89 Respiratory Rate 20 20 20 Blood Pressure 145/82 H Pulse Oximetry 99 Oxygen Delivery Room Air Oxygen Flow Rate 12/29/24 16:41 12/29/24 16:42 12/29/24 16:50 Temperature Pulse Rate 83 86 Respiratory Rate 22 H 14 Blood Pressure 144/60 H 157/75 H Pulse Oximetry 92 92 92 Oxygen Delivery Nasal Cannula Oxygen Flow Rate 3 12/29/24 19:13 12/29/24 19:28 12/29/24 19:43 Temperature 98.5 F 98 F Pulse Rate 97 97 94 Respiratory Rate 20 20 20 Blood Pressure 152/89 H 150/96 H 123/93 H Pulse Oximetry 97 98 100 Oxygen Delivery Oxygen Flow Rate 12/29/24 19:58 12/29/24 20:00 12/29/24 20:00 Temperature 98 F Pulse Rate 97 97 76 Respiratory Rate 22 H 22 H Blood Pressure 144/97 H Pulse Oximetry 98 98 Oxygen Delivery Nasal Cannula Oxygen Flow Rate 3 12/29/24 20:13 12/29/24 20:43 12/29/24 21:13 Temperature 98 F Pulse Rate 101 H 107 H 111 H Respiratory Rate 27 H 20 22 H Blood Pressure 144/97 H 154/83 H 135/79 Pulse Oximetry 97 96 94 Oxygen Delivery Oxygen Flow Rate 12/29/24 21:30 12/29/24 22:00 12/29/24 22:13 Temperature Pulse Rate 75 106 H Respiratory Rate 22 H Blood Pressure 131/77 Pulse Oximetry 98 92 Oxygen Delivery Nasal Cannula Oxygen Flow Rate 3 12/30/24 00:00 12/30/24 00:00 12/30/24 02:00 Temperature Pulse Rate 106 H 103 H 74 Respiratory Rate 22 H Blood Pressure Pulse Oximetry 92 Oxygen Delivery Nasal Cannula Oxygen Flow Rate 3 12/30/24 02:00 12/30/24 04:00 12/30/24 04:00 Temperature Pulse Rate 74 106 H 76 Respiratory Rate 22 H 22 H Blood Pressure 124/67 Pulse Oximetry 97 92 Oxygen Delivery Nasal Cannula Oxygen Flow Rate 3 12/30/24 04:00 12/30/24 06:00 12/30/24 06:00 Temperature Pulse Rate 76 90 90 Respiratory Rate 24 H 24 H Blood Pressure 118/59 L 134/74 Pulse Oximetry 98 100 Oxygen Delivery Oxygen Flow Rate 12/30/24 06:20 12/30/24 08:00 12/30/24 08:00 Temperature Pulse Rate 81 86 79 Respiratory Rate 20 20 Blood Pressure Pulse Oximetry 100 Oxygen Delivery Nasal Cannula Oxygen Flow Rate 3 12/30/24 08:00 12/30/24 08:33 12/30/24 10:00 Temperature 98.2 F Pulse Rate 76 86 71 Respiratory Rate 21 H 22 H Blood Pressure 131/68 121/65 Pulse Oximetry 100 98 Oxygen Delivery Oxygen Flow Rate 12/30/24 10:00 12/30/24 12:00 Temperature Pulse Rate 71 76 Respiratory Rate Blood Pressure Pulse Oximetry Oxygen Delivery Oxygen Flow Rate Exam 2 Narrative: General: Moderately ill-appearing female in the semi-Sims position in bed. Weight: 67.6 kg. BMI: 26.4. HEENT: PERRL, EOMI. Sclera anicteric. Tacky mucous membranes. Edentulous. Neck: Supple. No JVD. Respiratory: Mildly tachypneic with conversational dyspnea, speaking in 4 to 5 word sentences. Lung sounds are diminished with occasional expiratory wheezing. Cardiovascular: Regular rate and rhythm with S1-S2. Soft systolic murmur at the upper sternal border. Gastrointestinal: Abdomen is soft, nontender, and nondistended with positive bowel sounds. Skin: Warm and dry. Extremities: No cyanosis or clubbing. Mild edema of the lower extremities. No palpable knots or cords. Neurological: Alert. Cranial nerves 2-12 are grossly intact. No gross focal deficits to casual conversation. Psychiatric: Pleasant and cooperative with appropriate mood and affect. Results Labs 12/30/24 17:42 12/30/24 03:32 Labs: Short CBC 12/29/24 Range/Units 16:11 WBC 6.2 (4.5-10.0) K/mm3 Hgb 11.5 L (12.0-15.0) g/dL Hct 42.3 (37.0-47.0) % Plt Count 300 (150-375) k/mm3 BMP 12/29/24 12/30/24 16:11 03:32 Sodium 141 140 Potassium 4.0 4.5 Chloride 96 L 97 L Carbon Dioxide > 40 H 38 H BUN 12 20 H Creatinine 0.38 L 0.54 L Glucose 131 H 254 H Calcium 9.7 9.2 Cardiac Enzymes 12/29/24 Range/Units 16:11 Troponin I 0.063 H* (0.000-0.034) ng/mL Liver Function 12/29/24 Range/Units 16:11 Total Bilirubin 0.5 (0.2-1.3) mg/dL AST 32 (14-36) U/L ALT 15 (6-35) U/L Alkaline Phosphatase 102 (38-126) U/L Albumin 4.0 (3.5-5.1) g/dL Impressions Chest CT 12/30/24 12:16 IMPRESSION: 1. Improved aeration when compared with previous examination dated 12/13/2024. 2. Interval resolution of the right-sided pleural effusion. 3. Redemonstration of peripheral pleural-based right-sided pulmonary masses, possibly leading to chest discomfort, for which clinical correlation is needed. 4. Interval development of a small pericardial effusion, not present on the previous examination. Quality VTE Prophylaxis VTE prophylaxis: pharmacologic ordered Hospitalist MIPS Advance Care Plan I have confirmed that the patient's Advanced Care Plan is present, code status is documented, or surrogate decision maker is listed in patient medical record.: Yes Medication Reconciliation I have utilized all available resources to obtain, update and review the patients current medications (includes all prescriptions, OTC, herbals, cannabis, and nutritional supplements).: Yes
[2024-12-30 12:48] LABS: Hemoglobin A1C 5.3 % (<5.7)
[2024-12-30 16:42] LABS: Glucose Point of Care 145 mg/dl (65-105)
--- NOTE | 2024-12-30 17:25 | PC.NURSE ---
Dr. Sharp notified of VQ scan results of high probability of PE. New order to initiate heparin gtt per PE protocol with no bolus to be given.
[2024-12-30 17:47] LABS: Basophils Percent Auto 0.2 % (0.2-1.2); Eosinophils Percent Auto 0.2 % (0-4.4); Hemoglobin 9.5 g/dL (12.0-15.0); Immature Granulocyte Absolute 0.02 K/mm3 (0.00-0.031); Immature Granulocyte Percent A 0.3 % (0-0.5); Lymphocytes Absolute Auto 0.59 K/mm3 (0.9-3.2); Lymphocytes Percent Auto 9.4 % (18.3-44.2); Mean Corpuscular HGB Conc 27.9 g/dl (32-36); Mean Corpuscular Hemoglobin 24.7 pg (26-34); Mean Corpuscular Volume 88.5 fl (80-100); Mean Platelet Volume 10.4 fl (7.4-10.4); Monocytes Absolute Auto 0.6 K/mm3 (0.1-0.6); Monocytes Percent Auto 9.8 % (2.6-8.5); Neutrophils Absolute Auto 5.1 K/mm3 (1.3-6.7); Neutrophils Percent Auto 80.1 % (45.5-73.1); Platelet Count Result 291 k/mm3 (150-375); Red Blood Count 3.84 M/mm3 (4.2-5.4); Red Cell Distribution Width 17.4 % (11.5-14.5); White Blood Count 6.3 K/mm3 (4.5-10.0)
[2024-12-30 17:58] LABS: Prothrombin Time 13.7 Seconds (11.1-14.7)
[2024-12-30 17:59] LABS: Partial Thromboplastin Time 30.3 Seconds (22.3-36.8)
--- NOTE | 2024-12-30 18:03 | PC.NURSE ---
This patient, Inez Delgado, was transferred to [ 251] on 12/30/24 at 1803. Personal belongings sent with patient. Report given to [REHAN Eckert @ 1800 ]. Appropriate documentation sent with patient.
--- NOTE | 2024-12-30 18:25 | PC.NURSE ---
This patient, Inez Delgado, was received from ICU on 12/30/24 at 1825. Patient/family oriented to unit policies and routines
[2024-12-30] MEDS: HEPARIN SOD/D5W 100 UNITS/ML 25,000 UNITS/250 ML BAG 11 UNITS IV CONT (18:26)
[2024-12-30 18:28] LABS: Platelet Estimate Adequate (Adequate)
[2024-12-30 18:29] LABS: Band Neutrophils Percent 0 % (0-6); Hypochromasia 1+; Schistocytes None Seen
[2024-12-30 18:30] LABS: Anisocytosis 2+
--- NOTE | 2024-12-30 19:13 | ECHO_ITS ---
Patient Info Name: Inez Delgado Age: 69 years : 1955 Gender: Female Ht: 63 in Wt: 129 lbs BSA: 1.62 m2 HR: 81 bpm BP: 131 / 77 mmHg Heart Rhythm: Sinus Arrhythmia Technical Quality: Fair Exam Date: 12/30/2024 8:57 AM Exam Location: Echo Lab Patient Status: Inpatient Admit Date: 12/29/2024 Staff Ordering Physician: Dilan Deleon MD Metal Inspector: Lorie Vega RDCS Attending Provider: Dilan Deleon MD Referring Physician: Adrienne CARRASQUILLO; Exam Type: CA echo doppler color flow Study Info Indications - SOB, TAVR Complete two-dimensional, color flow and Doppler transthoracic echocardiogram is performed. Summary 1. Complete two-dimensional, color flow and Doppler transthoracic echocardiogram is performed. 2. Left ventricular chamber dimension is mildly enlarged. 3. Left ventricular systolic function is normal, estimated at 60-65%. 4. There is moderately increased left ventricular wall thickness. 5. The left ventricular diastolic function is grade I diastolic dysfunction. 6. The apical septum, apical inferior wall, apical cap, mid inferoseptal, and mid anteroseptal are hypokinetic. 7. Left atrial chamber dimension is mildly enlarged. 8. There is mild mitral valve regurgitation. 9. There is mild tricuspid valve regurgitation. 10. Moderate pulmonary hypertension, estimated pulmonary arterial systolic pressure is 50 mmHg. 11. There is moderate pulmonic regurgitation. Left Ventricle Left ventricular chamber dimension is mildly enlarged. Left ventricular systolic function is normal, estimated at 60-65%. There is moderately increased left ventricular wall thickness. The left ventricular diastolic function is grade I diastolic dysfunction. The apical septum, apical inferior wall, apical cap, mid inferoseptal, and mid anteroseptal are hypokinetic. All other castro appear normal. Right Ventricle Right ventricular chamber dimension is normal. Right ventricular systolic function is normal. Left Atria Left atrial chamber dimension is mildly enlarged. Right Atria Right atrial chamber dimension is normal. Atrial Septum Intact interatrial septum visualized by color flow imaging. Aortic Valve The bioprosthetic aortic valve is normal. There is no bioprosthetic aortic valve stenosis. There is trace regurgitation of the bioprosthetic aortic valve. Pulmonic Valve The pulmonic valve is normal. There is no pulmonic valve stenosis. There is moderate pulmonic regurgitation. Mitral Valve The mitral valve has normal leaflets. There is no mitral valve stenosis. There is mild mitral valve regurgitation. Tricuspid Valve The tricuspid valve leaflets are normal. There is no significant tricuspid valve stenosis. There is mild tricuspid valve regurgitation. Moderate pulmonary hypertension, estimated pulmonary arterial systolic pressure is 50 mmHg. Pericardium/Pleural The pericardium appears normal. There is trivial pericardial effusion. Inferior Vena Cava Dilated inferior vena cava with <50% collapse upon inspiration consistent with elevated right atrial pressure, 15 mmHg. Aorta The aortic root size at the sinus of Valsalva is normal. Left Ventricular Outflow Tract Name Value Normal LVOT 2D LVOT Diameter 1.9 cm LVOT Doppler LVOT Peak Gradient 7 mmHg LVOT Mean Gradient 3 mmHg LVOT VTI 30 cm LVOT VTI/AV VTI Ratio 0.8 LVOT Stroke Volume 83 ml LVOT CO 5.8 l/min LVOT CI 3.6 l/min/m2 Pulmonic Valve Name Value Normal RVOT Doppler RVOT Peak Gradient 4 mmHg PV Doppler PV Peak Gradient 5 mmHg Mitral Valve Name Value Normal MV Doppler MV Decel Ramsey 482 cm/s2 MV PHT 65 ms MV Area (PHT) 3.4 cm2 4.0-5.0 MV Diastolic Function MV E Peak Velocity 108 cm/s MV A Peak Velocity 155 cm/s MV E/A 0.7 MV Decel Time 224 ms MV Annular TDI MV E/e' (Septal) 26.1 <=8.0 MV E/e' (Lateral) 19.0 <=8.0 MV E/e' (Average) 22.6 Tricuspid Valve Name Value Normal TV Regurgitation Doppler TR Peak Velocity 298 cm/s TR Peak Gradient 35 mmHg Estimated PAP/RSVP RA Pressure 15 mmHg <=5 PA Systolic Pressure 50 mmHg <36 RV Systolic Pressure 50 mmHg <36 Aortic Valve Name Value Normal AV Doppler AV Peak Velocity 183 cm/s AV Peak Gradient 13 mmHg AV Mean Gradient 7 mmHg AV VTI 36 cm AV Area (Cont Eq VTI) 2.3 cm2 >=3.0 AV Area (Cont Eq Leopoldo) 2.0 cm2 AV Regurgitation 2D LVOT Area 2.8 cm2 Ventricles Name Value Normal LV Dimensions 2D/MM IVS Diastolic Thickness (2D) 1.2 cm 0.6-1.0 LVID Diastole (2D) 4.5 cm 3.8-5.2 LVIW Diastolic Thickness (2D) 1.2 cm 0.6-0.9 LVID Systole (2D) 3.0 cm 2.2-3.5 LVOT Diameter 1.9 cm LV Mass (2D Cubed) 198.01 g 67.00-162.00 LV Mass Index (2D Cubed) 122 g/m2 43-95 Relative Wall Thickness (2D) 0.54 LV Fractional Shortening/Ejection Fraction 2D/MM LV Fractional Shortening (2D) 34 % 27-45 LV EF (2D Teicholz) 63 % 54-74 LV Diastolic Volume (4C MOD) 112 ml LV EF (4C MOD) 59 % LV Diastolic Volume (2C MOD) 143 ml LV EF (2C MOD) 64 % LV Diastolic Volume (BP MOD) 127 ml 46-106 LV Diastolic Volume Index (BP MOD) 78 ml/m2 29-61 LV Systolic Volume (BP MOD) 49 ml 14-42 LV Systolic Volume Index (BP MOD) 30 ml/m2 8-24 LV EF (BP MOD) 61 % 54-74 LV Diastolic Length (4C) 7.6 cm LV Systolic Length (4C) 6.6 cm LV Stroke Volume (4C MOD) 66 ml LV CO (BP MOD) 0.0 l/min LV CI (BP MOD) 0.0 l/min/m2 Atria Name Value Normal LA Dimensions LA Volume (4C A-L) 62 ml LA Volume (BP A-L) 79 ml RA Dimensions RA Area (4C) 15.4 cm2 <=18.0 Wall Motion Scoring Wall Motion Scoring Index: 1.35 Report Signatures
[2024-12-30 21:02] LABS: Glucose Point of Care 157 mg/dl (65-105)
[2024-12-31] VITALS (12 sets, daily range): BP systolic 107–147; BP diastolic 45–65; PULSE 53–97; RESP 16–20; TEMP 36.2–37.1; O2SAT 71–100
[2024-12-31 00:35] LABS: Partial Thromboplastin Time 76.2 Seconds (22.3-36.8)
[2024-12-31 05:28] LABS: Basophils Percent Auto 0.4 % (0.2-1.2); Eosinophils Absolute Auto 0.1 K/mm3 (0-0.3); Eosinophils Percent Auto 0.9 % (0-4.4); Hematocrit 32.2 % (37.0-47.0); Hemoglobin 8.6 g/dL (12.0-15.0); Immature Granulocyte Absolute 0.01 K/mm3 (0.00-0.031); Immature Granulocyte Percent A 0.2 % (0-0.5); Lymphocytes Absolute Auto 1.36 K/mm3 (0.9-3.2); Lymphocytes Percent Auto 25.4 % (18.3-44.2); Mean Corpuscular HGB Conc 26.7 g/dl (32-36); Mean Corpuscular Hemoglobin 24.2 pg (26-34); Mean Corpuscular Volume 90.4 fl (80-100); Monocytes Absolute Auto 0.6 K/mm3 (0.1-0.6); Monocytes Percent Auto 10.8 % (2.6-8.5); Neutrophils Absolute Auto 3.3 K/mm3 (1.3-6.7); Neutrophils Percent Auto 62.3 % (45.5-73.1); Platelet Count Result 238 k/mm3 (150-375); Red Blood Count 3.56 M/mm3 (4.2-5.4); Red Cell Distribution Width 17.2 % (11.5-14.5); White Blood Count 5.4 K/mm3 (4.5-10.0)
[2024-12-31 05:42] LABS: Blood Urea Nitrogen 21 mg/dL (7-17); Calcium 9.2 mg/dL (8.4-10.2); Carbon Dioxide > 40 mmol/L (22-30); Chloride 99 mmol/L (98-107); Estimated CRCL calculation 83 ml/min; Estimated Glomerular Filt Rate > 60; Glucose 116 mg/dL (65-110); Potassium 3.8 mmol/L (3.4-5.0); Sodium 140 mmol/L (137-145)
[2024-12-31 06:32] LABS: Hypochromasia 1+; Platelet Estimate Adequate (Adequate); Schistocytes None Seen
--- NOTE | 2024-12-31 07:42 | P.CONIM_ITS ---
Assessment and Plan Assessment and plan (1) Pulmonary embolism: Code(s): I26.99 - Other pulmonary embolism without acute cor pulmonale Status: Acute Assessment and Plan: V/Q scan showed high probability for pulmonary embolism (risk factors include malignancy and recent hospitalization). * Currently on heparin drip. * LE venous Doppler US negative for DVTs * Echocardiogram showed LV chamber enlargement, EF 60-65%, LV grade 1 diastolic dysfunction, mild MR and TR, moderate [place] moderate pulm hypertension w/ systolic pressure of 50mmHg (2) Shortness of breath: Code(s): R06.02 - Shortness of breath Status: Acute Assessment and Plan: Patient presented to the ED with complaints of shortness of breath with initial concerns for STEMI given EKG changes. Chest CT showed improved aeration and interval resolution of the right-sided effusion. She is at her baseline oxygen requirement and there is no evidence on examination to suggest acute COPD exacerbation. Possible heart failure given markedly elevated BNP. Pulmonary embolism remains a consideration with lower extremity edema and known lung cancer. * V/Q scan shows high probability for PE. * Check lower extremity venous Doppler ultrasounds. * Continue maintenance inhalers and bronchodilators. * Echocardiogram is pending. (3) ST segment changes on electrocardiogram: Code(s): R94.31 - Abnormal electrocardiogram [ECG] [EKG] Status: Acute Assessment and Plan: EKG showed ST segment elevations with concerns for possible anterior [place] although patient had no chest pain. * Cardiac catheterization on 12/29/2024 showed minimal irregularities. * LV angiogram showed possible apical inferior hypokinesis and an EF of 55%. (4) Congestive heart failure: Code(s): I50.9 - Heart failure, unspecified Status: Acute Assessment and Plan: Findings concerning for congestive heart failure including lower extremity edema and significantly elevated BNP. * Echocardiogram is pending but there were areas of possible hypokinesis noted on cardiac catheterization. * Possible cor pulmonale from underlying lung disease. (5) Non-small cell carcinoma of right lung, stage 4: Onset Date: 11/2024 Code(s): C34.91 - Malignant neoplasm of unspecified part of right bronchus or lung Status: Acute Assessment and Plan: Recent diagnosis of stage IV non-small cell lung adenocarcinoma arising in a pleural based mass in the right mid to lower lobe. * Post thoracentesis for malignant effusion last month with resolution on imaging today. * Plans for chemotherapy with Dr. Lozano. (6) Chronic obstructive pulmonary disease: Code(s): J44.9 - Chronic obstructive pulmonary disease, unspecified Status: Chronic Assessment and Plan: No evidence of acute exacerbation on examination. * Remains on chronic oxygen requirements at 3 L. * Continue maintenance inhalers and p.r.n. bronchodilators. * No indication for steroids at this time. (7) Hypertension: Code(s): I10 - Essential (primary) hypertension Status: Acute Assessment and Plan: Blood pressures were in the 140s to 150 systolic on arrival to the ED yesterday. * Improving today with recent blood pressure of 121/65. * Continue lisinopril and metoprolol with daily monitoring. (8) Hyperglycemia: Code(s): R73.9 - Hyperglycemia, unspecified Status: Acute Assessment and Plan: Several random glucoses over 200 last admission and this admission, in part due to steroids and likely impaired fasting glucose. * Hemoglobin A1c was 4.9% last month and is 5.3% today. * Close follow-up with primary care provider. Plan Thank you for allowing us to participate in this patient's care. Please do not hesitate to contact us with any questions. HPI Date of Consult Consult date: 12/31/24 Requesting Physician: Dilan Deleon MD Primary Care Provider: Jessie Mijares NP Consult Narrative Narrative: Inez Delgado is a 69 year old female with history of migraine headaches, hypertension, aortic valve replacement, diastolic dysfunction, chronic obstructive pulmonary disease, chronic respiratory failure on home oxygen, moderate pulmonary hypertension on echo in December 2024, bleeding ulcers, gastritis, anemia, depression, anxiety, and recent diagnosis of non-small cell lung adenocarcinoma arising in the right middle lobe with malignant pleural effusion whom the hospitalist service has been consulted for help managing her medical conditions. She was admitted through the emergency department last night with complaints of weakness and increasing shortness of breath which seemed to worsen during the middle of the night while she was sleeping. She is short of breath even with conversation. EKG done upon arrival showed ST elevations in multiple leads concerning for possible MRI and she was taken urgently to the laboratory clerk where she was found to have minimal coronary irregularities. Her initial troponin was 0.063 and was not trended. ProBNP was 04567 which is markedly elevated compared to a BNP of 829 about 3 weeks ago. On examination she was noted to have lower extremity edema and a V/Q scan read this evening showed high probability for pulmonary embolism. She has since been started on a heparin drip. At the time my evaluation she feels about the same, no worse. She denies fever, chills, sweats, syncope, near syncope, chest pain, pleuritic pain, palpitations, productive cough, vomiting, diarrhea, and calf pain. Review of Systems 2 Review of Systems: 12 systems were reviewed and are negativ e except for as per HPI. [facility] Past Medical History Medical History (Updated 12/30/24 @ 23:50 by Evelyn Sheets MD) Moderate pulmonic regurgitation and right ventricular dilation by prior echocardiogram Moderate pulmonary hypertension Diastolic dysfunction grade 1 diastolic dysfunction on echo in December 2024 with an EF of 60 to 65% Non-small cell carcinoma of right lung, stage 4 (11/2024) arising in a pleural based mass in the right mid to lower lung with malignant effusion Chronic respiratory failure with hypoxia, on home oxygen therapy Chronic obstructive pulmonary disease Bleeding gastric ulcer Hypertension History of blood transfusion Seasonal allergies Tension headache Depression Cervicalgia Low back pain Migraines Anxiety Anemia Surgical History Surgical History (Updated 12/30/24 @ 13:59 by Miley Rodrigez PA-C) History of cardiac catheterization (12/29/24) minimal irregularities with possible apical inferior hypokinesis and an EF 55% History of transcatheter aortic valve implantation (REYNA) (2022) via right neck History of laparoscopy History of esophagogastroduodenoscopy (EGD) History of (1980) Family History Family History Father Alcoholism Heart disease Hypertension Grandparent Carcinoma of colon Acute myocardial infarction Social History Social History Social History: Surrogate medical decision maker: rosa Cisneros Code status: Full code. Smoking packs per day: 1 Smoking cigarettes per day: 20.0 Years smoked: 50 Smoking pack-years: 50.00 Smoking status: Former smoker Tobacco type: cigarettes Smoking end date: 09/23/23 Alcohol intake: never Substance use: never Substance use type: does not use Do You Feel Safe in your Home?: Yes Lack of Transportation: No Lack of Food: Never True Current Housing: I Have Housing Concerned About Future Housing: No Difficulty Paying Gas/Electric Bills: No Difficulty Paying for Meds: No Currently Unemployed: No Education: Associate Degree Difficulty w/ Childcare or Family Care: No Living arrangements: with family Additional living arrangements comments: SISTER Spiritual care concerns: No Meds Home Medications and Allergies Home Medications ?Medication ?Instructions ?Recorded ?Confirmed ?Type cyclobenzaprine 10 mg tablet 5 - 10 mg (0.5 - 1 x 10 mg) PO TID 01/03/24 12/29/24 Rx PRN muscle spasm #90 tabs lisinopril 5 mg tablet 5 mg PO DAILY #30 tabs 01/03/24 12/29/24 Rx metoprolol tartrate 25 mg tablet 25 mg PO BID #60 tabs 01/03/24 12/29/24 Rx omeprazole 40 mg capsule,delayed 40 mg PO DAILY #30 caps 01/03/24 12/29/24 Rx release ferrous sulfate 137 mg (45 mg 137 mg PO DAILY 01/06/24 12/29/24 History iron) tablet,extended release (Slow Fe) alprazolam 0.5 mg tablet 0.5 mg PO TID PRN Anxiety #15 tabs 12/18/24 12/29/24 Rx lisinopril 5 mg tablet 5 mg PO QAM #90 tabs 12/18/24 12/29/24 Rx nebulizer and compressor #1 ea 12/18/24 12/29/24 Rx albuterol sulfate 90 mcg/actuation 1 - 2 inh inhalation Q4-6H PRN 12/21/24 12/29/24 Rx aerosol inhaler shortness of breath or wheezing #8.5 grams ipratropium 0.5 mg-albuterol 3 mg 3 ml inhalation Q6HRT PRN 12/21/24 12/29/24 History (2.5 mg base)/3 mL nebulization shortness of breath or wheezing soln Allergies Allergy/AdvReac Type Severity Reaction Status Date / Time iohexol (From contrast - CT, AdvReac FLUSHED, Verified 12/22/24 08:30 X-RAY) HOT FEELING Vital Signs Vital Signs - 24 hr 12/30/24 08:00 12/30/24 08:00 12/30/24 08:00 Temperature 98.2 F Pulse Rate 86 79 76 Respiratory Rate 20 21 H Blood Pressure 131/68 Pulse Oximetry 100 100 Oxygen Delivery Nasal Cannula Oxygen Flow Rate 3 12/30/24 08:33 12/30/24 10:00 12/30/24 10:00 Temperature Pulse Rate 86 71 71 Respiratory Rate 22 H Blood Pressure 121/65 Pulse Oximetry 98 Oxygen Delivery Oxygen Flow Rate 12/30/24 12:00 12/30/24 16:00 12/30/24 16:00 Temperature 97.9 F Pulse Rate 76 92 83 Respiratory Rate 20 Blood Pressure 115/80 Pulse Oximetry 99 Oxygen Delivery Oxygen Flow Rate 12/30/24 17:53 12/30/24 19:55 12/30/24 20:00 Temperature 99.1 F Pulse Rate 60 60 Respiratory Rate 16 Blood Pressure 145/66 H Pulse Oximetry 99 100 Oxygen Delivery Nasal Cannula Oxygen Flow Rate 3 12/30/24 20:05 12/31/24 00:00 12/31/24 00:00 Temperature 98.7 F Pulse Rate 60 53 L 54 L Respiratory Rate 16 Blood Pressure 107/45 L Pulse Oximetry 100 Oxygen Delivery Oxygen Flow Rate 12/31/24 04:00 Temperature Pulse Rate 55 L Respiratory Rate Blood Pressure Pulse Oximetry Oxygen Delivery Oxygen Flow Rate Exam 2 Narrative: General: Moderately ill-appearing female in the semi-Sims position in bed. Weight: 67.6 kg. BMI: 26.4. HEENT: PERRL, EOMI. Sclera anicteric. Tacky mucous membranes. Edentulous. Neck: Supple. No JVD. Respiratory: Mildly tachypneic with conversational dyspnea, speaking in 4 to 5 word sentences. Lung sounds are diminished with occasional expiratory wheezing. Cardiovascular: Regular rate and rhythm with S1-S2. Soft systolic murmur at the upper sternal border. Gastrointestinal: Abdomen is soft, nontender, and nondistended with positive bowel sounds. Skin: Warm and dry. Extremities: No cyanosis or clubbing. Mild edema of the lower extremities. No palpable knots or cords. Neurological: Alert. Cranial nerves 2-12 are grossly intact. No gross focal deficits to casual conversation. Psychiatric: Pleasant and cooperative with appropriate mood and affect. Results Labs 12/31/24 05:10 12/31/24 05:10 Labs: Short CBC 12/30/24 12/31/24 Range/Units 17:42 05:10 WBC 6.3 5.4 (4.5-10.0) K/mm3 Hgb 9.5 L 8.6 L (12.0-15.0) g/dL Hct 34.0 L 32.2 L (37.0-47.0) % Plt Count 291 238 (150-375) k/mm3 [facility] 12/31/24 05:10 Sodium 140 Potassium 3.8 Chloride 99 Carbon Dioxide > 40 H BUN 21 H Creatinine 0.45 L Glucose 116 H Calcium 9.2 Quality VTE Prophylaxis VTE prophylaxis: pharmacologic ordered
[2024-12-31] MEDS: lisinopriL 5 MG TABLET PO (08:13)
[2024-12-31] MEDS: ALPRAZolam (*CRX) 0.25 MG TABLET PO ×3 (08:13→21:53)
[2024-12-31] MEDS: HYDROcodone/acetaminophen (*CRX) 5-325 MG TABLET 1 TAB PO ×4 (08:13→20:26)
[2024-12-31] MEDS: METOPROLOL TARTRATE 25 MG TABLET PO ×2 (08:13→20:25)
[2024-12-31 08:20] LABS: Glucose Point of Care 105 mg/dl (65-105)
[2024-12-31] MEDS: IPRATROPIUM 0.5 MG/ALBUTEROL SULFATE 2.5 MG AMPUL.NEB 3 ML INHALATION ×2 (10:06→17:39)
[2024-12-31 11:50] LABS: Glucose Point of Care 171 mg/dl (65-105)
--- NOTE | 2024-12-31 13:02 | P.PNIM_ITS ---
Progress Note: A&P Assessment and Plan (1) Pulmonary embolism: Code(s): I26.99 - Other pulmonary embolism without acute cor pulmonale Status: Acute Assessment and Plan: V/Q scan showed high probability for pulmonary embolism (risk factors include malignancy and recent hospitalization). * LE venous Doppler US negative for DVTs * Echocardiogram showed LV chamber enlargement, EF 60-65%, LV grade 1 diastolic dysfunction, mild MR and TR, moderate [place] moderate pulm hypertension w/ systolic pressure of 50mmHg * Started on heparin drip, transitioning to PO Eliquis (2) Shortness of breath: Code(s): R06.02 - Shortness of breath Status: Acute Assessment and Plan: Patient presented to the ED with complaints of shortness of breath with initial concerns for STEMI given EKG changes. Chest CT showed improved aeration and interval resolution of the right-sided effusion. She is at her baseline oxygen requirement and there is no evidence on examination to suggest acute COPD exacerbation. Possible heart failure given markedly elevated BNP. Pulmonary embolism remains a consideration with lower extremity edema and known lung cancer. * V/Q scan shows high probability for PE. * Check lower extremity venous Doppler ultrasounds. * Continue maintenance inhalers and bronchodilators. * Echocardiogram: LV chamber enlarged, normal LV systolic function, EF 60-65%, moderately increased LV thickness, Grade 1 diastolic dysfunction, mild MR and TR, moderate [place] moderate pulm hypertension w/ systolic pressure of 50mmHg (3) ST segment changes on electrocardiogram: Code(s): R94.31 - Abnormal electrocardiogram [ECG] [EKG] Status: Acute Assessment and Plan: EKG showed ST segment elevations with concerns for possible anterior [place] although patient had no chest pain. * Cardiac catheterization on 12/29/2024 showed minimal irregularities. * LV angiogram showed possible apical inferior hypokinesis and an EF of 55%. (4) Congestive heart failure: Code(s): I50.9 - Heart failure, unspecified Status: Acute Assessment and Plan: Findings concerning for congestive heart failure including lower extremity edema and significantly elevated BNP. * Echocardiogram is pending but there were areas of possible hypokinesis noted on cardiac catheterization. * Possible cor pulmonale from underlying lung disease. (5) Non-small cell carcinoma of right lung, stage 4: Onset Date: 11/2024 Code(s): C34.91 - Malignant neoplasm of unspecified part of right bronchus or lung Status: Acute Assessment and Plan: Recent diagnosis of stage IV non-small cell lung adenocarcinoma arising in a pleural based mass in the right mid to lower lobe. * Post thoracentesis for malignant effusion last month with resolution on imaging today. * Plans for chemotherapy with Dr. Lozano. (6) Chronic obstructive pulmonary disease: Code(s): J44.9 - Chronic obstructive pulmonary disease, unspecified Status: Chronic Assessment and Plan: No evidence of acute exacerbation on examination. * Remains on chronic oxygen requirements at 3 L. * Continue maintenance inhalers and p.r.n. bronchodilators. * No indication for steroids at this time. (7) Hypertension: Code(s): I10 - Essential (primary) hypertension Status: Acute Assessment and Plan: Blood pressures were in the 140s to 150 systolic on arrival to the ED yesterday. * Improving today with recent blood pressure of 132/58. * Continue lisinopril and metoprolol with daily monitoring. (8) Hyperglycemia: Code(s): R73.9 - Hyperglycemia, unspecified Status: Acute Assessment and Plan: Several random glucoses over 200 last admission and this admission, in part due to steroids and likely impaired fasting glucose. * Hemoglobin A1c was 4.9% last month and is 5.3% today. * Close follow-up with primary care provider. Plan Time Spent With Patient Time: Subjective Date/time seen: 12/31/24 13:02 Interval history: 69-year-old female with history of migraine headaches, hypertension, aortic valve replacement, diastolic dysfunction, chronic obstructive pulmonary disease, chronic respiratory failure on home oxygen, moderate pulmonary hypertension on echo in December 2024, bleeding ulcers, gastritis, anemia, depression, anxiety, and recent diagnosis of non-small cell lung adenocarcinoma arising in the right middle lobe with malignant pleural effusion whom the hospitalist service has been consulted for help managing her medical conditions. 12/31/2024 Patient examined at bedside upon examination. Denies any chest pain, n/v, or abdominal pain. States that her shortness of breath has improved. On 3L NC at baseline. Upon exam, breath sounds diminished but no wheezing or crackles. Was started on Heparin drip, will transition to Eliquis PO. CMP and CBC otherwise stable or near baseline. INR 30.3 on 12/30 -> 79.0 on 12/31. Continue to monitor. Review of Systems Review of Systems: 12 systems were reviewed and are negativ e except for as per HPI. ROS unobtainable: Yes unobtainable due to endotracheal tube, unobtainable due to medical condition and unobtainable due to mental status Exam Narrative: General: Moderately ill-appearing female in the semi-Sims position in bed. Weight: 67.6 kg. BMI: 26.4. HEENT: PERRL, EOMI. Sclera anicteric. Tacky mucous membranes. Edentulous. Neck: Supple. No JVD. Respiratory: Normal respiratory effort. Lung sounds are diminished, no wheezing Cardiovascular: Regular rate and rhythm with S1-S2. Soft systolic murmur at the upper sternal border. Gastrointestinal: Abdomen is soft, nontender, and nondistended with positive bowel sounds. Skin: Warm and dry. Extremities: No cyanosis or clubbing. Mild edema of the lower extremities. No palpable knots or cords. Neurological: Alert. Cranial nerves 2-12 are grossly intact. No gross focal deficits to casual conversation. Psychiatric: Pleasant and cooperative with appropriate mood and affect. Objective Data Vital Signs Vital Signs: Vital Signs - 24 hr 12/30/24 16:00 12/30/24 16:00 12/30/24 17:53 Temperature 97.9 F Pulse Rate 92 83 Respiratory Rate 20 Blood Pressure 115/80 Pulse Oximetry 99 99 Oxygen Delivery Nasal Cannula Oxygen Flow Rate 3 12/30/24 19:55 12/30/24 20:00 12/30/24 20:05 Temperature 99.1 F Pulse Rate 60 60 60 Respiratory Rate 16 Blood Pressure 145/66 H Pulse Oximetry 100 Oxygen Delivery Oxygen Flow Rate 12/31/24 00:00 12/31/24 00:00 12/31/24 04:00 Temperature 98.7 F Pulse Rate 53 L 54 L 55 L Respiratory Rate 16 Blood Pressure 107/45 L Pulse Oximetry 100 Oxygen Delivery Oxygen Flow Rate 12/31/24 08:00 12/31/24 08:00 12/31/24 08:00 Temperature 98.2 F Pulse Rate 63 70 Respiratory Rate 18 Blood Pressure 132/58 L Pulse Oximetry 100 100 Oxygen Delivery Nasal Cannula Oxygen Flow Rate 3 12/31/24 08:13 12/31/24 10:07 Temperature Pulse Rate 63 77 Respiratory Rate 20 Blood Pressure Pulse Oximetry Oxygen Delivery Oxygen Flow Rate Intake/Output Intake/Output: Intake & Output 12/28/24 12/29/24 12/30/24 12/31/24 23:59 23:59 23:59 23:59 Intake Total 650 405.2 Output Total 600 800 Balance 50 -394.8 Meds/Results Medications: Active Medications Generic Name Dose Route Start Last Admin Trade Name Freq PRN Reason Stop Dose Admin Hydrocodone Bitart/Acetaminophen 1 tab 12/29/24 19:13 12/31/24 12:15 Hydrocodone/Acetaminophen (*Crx) 5-325 Mg Tablet PO 1 tab Q4-6H PRN Administration Pain Rated 1-3 Albuterol/Ipratropium 3 ml 12/29/24 19:13 12/31/24 10:06 Ipratropium 0.5 Mg/Albuterol Sulfate 2.5 Mg Ampul.Neb 3 Ml INHALATION 3 ml Q6HRT PRN Administration Shortness Of Breath Alprazolam 0.25 mg 12/29/24 19:13 12/31/24 08:13 Alprazolam (*Crx) 0.25 Mg Tablet PO 0.25 mg TID PRN Administration Anxiety Apixaban 10 mg 12/31/24 21:00 Apixaban 5 Mg Tablet PO Q12HR MINGO Dextrose 12.5 gm 12/30/24 08:55 Dextrose 50% 25 Gm/50 Ml Syringe IV PUSH PRN PRN Hypoglycemia Protocol Enoxaparin Sodium 40 mg 12/30/24 09:00 12/30/24 10:06 Enoxaparin 40 Mg/0.4 Ml Syringe SUB-Q 40 mg DAILY MINGO Administration Glucagon 1 mg 12/30/24 08:55 Glucagon For Inj 1 Mg Vial IM PRN PRN Hypoglycemia Protocol Glucose 15 gm 12/30/24 08:55 Glucose Oral Gel 15 Gm Of Glucse In 37.5 Gm Tube PO PRN PRN Hypoglycemia Protocol Heparin Sodium (Porcine) 4,500 units 12/30/24 17:24 Heparin Sodium 5,000 Units/Ml Vial IV PUSH PRN PRN aPTT less than 55 seconds Heparin Sodium (Porcine) 2,500 units 12/30/24 17:24 Heparin Sodium 5,000 Units/Ml Vial IV PUSH PRN PRN aPTT 55 - 70 seconds Dextrose 1,000 mls @ 100 mls/hr 12/30/24 08:55 Dextrose 5% 1,000 Ml IVPB PRN PRN Hypoglycemia Protocol Heparin Sodium/Dextrose 25,000 units in 250 mls @ 11 mls/hr 12/30/24 17:25 12/31/24 05:49 Heparin Sodium/D5w 100 Units/Ml IV CONT 1,100 units/hr .[id number] MINGO 11 mls/hr Titration Protocol 1,100 UNITS/HR Insulin Aspart 3 - 6 units 12/30/24 12:00 12/31/24 12:14 Insulin Aspart (*Bkc) 100 Units/Ml SUB-Q Not Given TIDWM MINGO Protocol Insulin Aspart 1 - 3 units 12/30/24 21:00 12/30/24 20:00 Insulin Aspart (*Bkc) 100 Units/Ml SUB-Q Not Given HS MINGO Protocol Lisinopril 5 mg 12/30/24 09:00 12/31/24 08:13 Lisinopril 5 Mg Tablet PO 5 mg QAM MINGO Administration Metoprolol Tartrate 25 mg 12/29/24 21:00 12/31/24 08:13 Metoprolol Tartrate 25 Mg Tablet PO 25 mg Q12HR MINGO Administration Perflutren Lipid Microsphere 0 ml 12/29/24 19:13 Perflutren Lipid Microspheres 1.5 Ml Vial Diluted To 10 Ml Total Volume IV PUSH ONCE PRN adequate visualization Protocol Radiology Results: ITS Impressions Chest CT 12/30/24 12:16 IMPRESSION: Improved aeration when compared with previous examination dated 12/13/2024. Interval resolution of the right-sided pleural effusion. Redemonstration of peripheral pleural-based right-sided pulmonary masses, possibly leading to chest discomfort, for which clinical correlation is needed. Interval development of a small pericardial effusion, not present on the previous examination. Pulmonary Perfusion Imaging 12/30/24 15:10 IMPRESSION: 1. High probability for pulmonary embolism. 2. Diffuse decreased washout the lungs consistent with obstructive pulmonary disease with corresponding moderate emphysema seen on prior CT. Venous Doppler Study 12/30/24 19:04 IMPRESSION: Negative bilateral lower extremity venous US. No deep vein thrombosis. Labs Labs: Laboratory Results - last 24 hr 12/30/24 12/30/24 12/30/24 16:40 17:42 19:57 WBC 6.3 RBC 3.84 L Hgb 9.5 L Hct 34.0 L MCV 88.5 MCH 24.7 L MCHC 27.9 L RDW 17.4 H Plt Count 291 MPV 10.4 Immature Gran % (Auto) 0.3 Neut % (Auto) 80.1 H Lymph % (Auto) 9.4 L Traverse % (Auto) 9.8 H Eos % (Auto) 0.2 Baso % (Auto) 0.2 Lymph # (Auto) 0.59 L [place] # (Auto) 0.6 Eos # (Auto) 0.0 Baso # (Auto) 0.0 Abs Immat Gran (auto) 0.02 Absolute Neuts (auto) 5.1 Absolute Nucleated RBC 0.000 Band Neutrophils % 0 Nucleated RBC % 0.0 Platelet Estimate Adequate Hypochromasia 1+ Anisocytosis 2+ Schistocytes None seen PT 13.7 INR 1.0 APTT 30.3 Sodium Potassium Chloride Carbon Dioxide Anion Gap BUN Creatinine Estim Creat Clear Calc Estimated GFR Glucose POC Capillary Glucose 145 H 157 H Calcium Magnesium 12/31/24 12/31/24 12/31/24 00:15 05:10 07:56 WBC 5.4 RBC 3.56 L Hgb 8.6 L Hct 32.2 L MCV 90.4 MCH 24.2 L MCHC 26.7 L RDW 17.2 H Plt Count 238 MPV 10.0 Immature Gran % (Auto) 0.2 Neut % (Auto) 62.3 Lymph % (Auto) 25.4 [place]verse % (Auto) 10.8 H Eos % (Auto) 0.9 Baso % (Auto) 0.4 Lymph # (Auto) 1.36 [place]verse # (Auto) 0.6 Eos # (Auto) 0.1 Baso # (Auto) 0.0 Abs Immat Gran (auto) 0.01 Absolute Neuts (auto) 3.3 Absolute Nucleated RBC 0.000 Band Neutrophils % Not Reportable Nucleated RBC % 0.0 Platelet Estimate Adequate Hypochromasia 1+ Anisocytosis Schistocytes None seen PT INR APTT 76.2 H 79.0 H Sodium 140 Potassium 3.8 Chloride 99 Carbon Dioxide > 40 H Anion Gap BUN 21 H Creatinine 0.45 L Estim Creat Clear Calc 83 Estimated GFR > 60 Glucose 116 H POC Capillary Glucose 105 Calcium 9.2 Magnesium 2.0 12/31/24 11:45 WBC RBC Hgb Hct MCV MCH MCHC RDW Plt Count MPV Immature Gran % (Auto) Neut % (Auto) Lymph % (Auto) Traverse % (Auto) Eos % (Auto) Baso % (Auto) Lymph # (Auto) Traverse # (Auto) Eos # (Auto) Baso # (Auto) Abs Immat Gran (auto) Absolute Neuts (auto) Absolute Nucleated RBC Band Neutrophils % Nucleated RBC % Platelet Estimate Hypochromasia Anisocytosis Schistocytes PT INR APTT Sodium Potassium Chloride Carbon Dioxide Anion Gap BUN Creatinine Estim Creat Clear Calc Estimated GFR Glucose POC Capillary Glucose 171 H Calcium Magnesium Quality VTE Prophylaxis VTE prophylaxis: pharmacologic ordered
--- NOTE | 2024-12-31 13:42 | P.CDI_ITS ---
CDI Query Clarification Request Please specify type and acuity of heart failure if known, thank you. * Acute * Chronic * Acute on Chronic * Unknown * Systolic * Diastolic * Combined Systolic and Diastolic * Unknown The medical chart reflects the following: Documentation from 12/30: (4) Congestive heart failure: Code(s): I50.9 - Heart failure, unspecified Status: Acute Assessment and Plan: Findings concerning for congestive heart failure including lower extremity edema and significantly elevated BNP. * Echocardiogram is pending but there were areas of possible hypokinesis noted on cardiac catheterization. * Possible cor pulmonale from underlying lung disease. Documentation from 12/31 (2) Shortness of breath: Code(s): R06.02 - Shortness of breath Status: Acute Assessment and Plan: Patient presented to the ED with complaints of shortness of breath with initial concerns for STEMI given EKG changes. Chest CT showed improved aeration and interval resolution of the right-sided effusion. She is at her baseline oxygen requirement and there is no evidence on examination to suggest acute COPD exacerbation. Possible heart failure given markedly elevated BNP. Pulmonary embolism remains a consideration with lower extremity edema and known lung cancer. * V/Q scan shows high probability for PE. * Check lower extremity venous Doppler ultrasounds. * Continue maintenance inhalers and bronchodilators. * Echocardiogram: LV chamber enlarged, normal LV systolic function, EF 60-65%, moderately increased LV thickness, Grade 1 diastolic dysfunction, mild MR and TR, moderate VA moderate pulm hypertension w/ systolic pressure of 50mmHg (3) ST segment changes on electrocardiogram: Code(s): R94.31 - Abnormal electrocardiogram [ECG] [EKG] Status: Acute Assessment and Plan: EKG showed ST segment elevations with concerns for possible anterior UT although patient had no chest pain. * Cardiac catheterization on 12/29/2024 showed minimal irregularities. * LV angiogram showed possible apical inferior hypokinesis and an EF of 55%. (4) Congestive heart failure: Code(s): I50.9 - Heart failure, unspecified Status: Acute Assessment and Plan: Findings concerning for congestive heart failure including lower extremity edema and significantly elevated BNP. * Echocardiogram is pending but there were areas of possible hypokinesis noted on cardiac catheterization. * Possible cor pulmonale from underlying lung disease. ECHO: Summary 1. Complete two-dimensional, color flow and Doppler transthoracic echocardiogram is performed. 2. Left ventricular chamber dimension is mildly enlarged. 3. Left ventricular systolic function is normal, estimated at 60-65%. 4. There is moderately increased left ventricular wall thickness. 5. The left ventricular diastolic function is grade I diastolic dysfunction. 6. The apical septum, apical inferior wall, apical cap, mid inferoseptal, and mid anteroseptal are hypokinetic. 7. Left atrial chamber dimension is mildly enlarged. 8. There is mild mitral valve regurgitation. 9. There is mild tricuspid valve regurgitation. 10. Moderate pulmonary hypertension, estimated pulmonary arterial systolic pressure is 50 mmHg. 11. There is moderate pulmonic regurgitation. <Claudia Arrieta RN - Last Filed: 12/31/24 13:46> Clarified Diagnosis Clarified Diagnosis: Unknown classification of heart failure, and unknown if acute or chronic <Abe Haque PA-C - Last Filed: 12/31/24 15:53>
--- NOTE | 2024-12-31 14:08 | P.PNCA_ITS ---
Progress Note: A&P Assessment and Plan (1) Shortness of breath: Code(s): R06.02 - Shortness of breath Status: Acute Assessment and Plan: -shortness breath is multifactorial including pneumonia, lung cancer, COPD/acute on chronic hypoxemic respiratory failure. It is noncardiac has noted by her coronary angiogram yesterday showing no obstructive coronary disease. Echocardiogram is pending because of a history of TAVR but unlikely to be contributing to her symptoms. Okay to move out of ICU. Will consult hospitalist. No further cardiac workup indicated be on the echocardiogram (2) Hypertension: Code(s): I10 - Essential (primary) hypertension Status: Acute Assessment and Plan: Continue metoprolol (3) Non-small cell lung cancer: Code(s): C34.90 - Malignant neoplasm of unspecified part of unspecified bronchus or lung Status: Acute Assessment and Plan: Per oncology/pulmonary (4) Chronic obstructive pulmonary disease: Code(s): J44.9 - Chronic obstructive pulmonary disease, unspecified Status: Chronic Assessment and Plan: Consult hospitalist. Plan -obtain echocardiogram. -optimize breathing management -patient has chronic respiratory failure on 3 L nasal cannula at home. Optimize pulmonary status Subjective Date/time seen: 12/31/24 14:08 Interval history: 69-year-old female with a history of a TAVR and recent diagnosis of lung cancer and pneumonia. Admitted for shortness of breath. EKG initially showed some concerns for an ST-elevation myocardial infarction. Patient was taken emergently to cardiac catheterization lab and she was found have no obstructive coronary disease. Date of service 12/30/2024: No groin pain. No chest pain. No shortness breath at rest. Date of service 12/31/2024: Review of Systems Review of Systems: All systems reviewed & are unremarkable except as noted in HPI and below Constitutional: Constitutional: Denies chills, Denies fatigue, Denies fever(s), Denies headache(s) and Denies snoring Eyes: Eyes: Denies eye discharge and Denies loss of vision ENT: Denies dizziness, Denies headache(s), Denies nasal discharge and Denies sore throat Cardiovascular: Cardiovascular: Reports as per HPI, Denies chest pain, Denies syncope, Denies rapid heart rate, Denies leg edema, Reports dyspnea, Reports dyspnea on exertion, Denies orthopnea and Denies paroxysmal nocturnal dyspnea Respiratory: Respiratory: Denies chest congestion, Denies cough, Reports dyspnea, Reports dyspnea on exertion, Denies snoring and Denies wheezing Gastrointestinal: Gastrointestinal: Denies abdominal pain, Denies diarrhea, Denies nausea and Denies vomiting Genitourinary: Genitourinary: Denies hematuria, Denies urinary frequency, Denies dysuria and Denies flank pain Musculoskeletal: Musculoskeletal: Denies myalgias, Denies arthralgias and Denies joint swelling Neurologic: Denies Abnormal speech present, Denies dizziness, Denies syncope, Denies headache(s), Denies focal weakness and Denies loss of vision Psychiatric: Psychiatric: Denies anxiety and Denies depression Endocrine: Endocrine: Denies cold intolerance, Denies fatigue and Denies heat intolerance Hematologic/Lymphatic: Hematologic/Lymphatic: Denies easy bleeding and Denies easy bruising Allergic/Immunologic: Allergic/Immunologic: Denies urticaria and Denies wheezing Exam Const: General: cooperative, healthy appearing, comfortable, no acute distress, well developed and well nourished Nutritional Appearance: well nourished Orientation/consciousness: patient oriented x3 HENMT: Head: normal to inspection, normocephalic and atraumatic Ears: hearing grossly normal bilaterally and external ears normal Face/Nose/Sinus: Normal external nose present, Normal nares present, normal facial exam and No erythema Face and sinus: normal facial exam and no erythema Mouth: Yes moist mucous membranes and No lip abnormal Throat: uvula midline Eyes: General: appearance normal, both eyes and all related structures Eyelids: eyelids normal Sclera: sclerae normal Neck: Neck: normal visual inspection and full ROM Thyroid: thyroid normal Carotids: no bruits Lymphatic: lymphedema not noted Chest: Chest palpation & inspection: normal inspection of the chest and normal palpation of entire chest wall Resp: Effort & Inspection: normal respiratory effort and not labored Auscultation: clear to auscultation bilaterally, no crackles, no rales and no wheezes Cardio: Jugular venous distension: no JVD Rate: regular rate Rhythm: regular rhythm Heart sounds: S1 normal heart sound present, S2 normal heart sound present, no click, no gallops, no murmurs and no rubs Bruits: no carotid bruits GI: Inspection: normal to inspection and non-distended Auscultation: normal bowel sounds Rectal Exam: deferred : General: No CVA tenderness and Yes no CVA tenderness Back/Spine/Pelvis: Back: no CVA tenderness, No CVA tenderness and No erythema Cervical Spine: cervical ROM normal Skin: General skin exam: normal color, no erythema and no pallor Lesions: no lesions Rashes: no rashes Neuro: General: patient oriented x3 and moves all extremities Cranial nerves: Yes facial symmetry Speech: normal speech and No Abnormal speech present Motor exam (neuro): 5/5 motor strength present throughout Extrem: General: normal to inspection and full ROM Other: Right groin is stable without hematoma, ecchymosis or bruit. Psych: Appearance: grossly normal, well kempt and disheveled Affect: normal affect Objective Data Vital Signs Vital Signs: Vital Signs - 24 hr 12/30/24 16:00 12/30/24 16:00 12/30/24 17:53 Temperature 36.6 C Pulse Rate 92 83 Respiratory Rate 20 Blood Pressure 115/80 Pulse Oximetry 99 99 Oxygen Delivery Nasal Cannula Oxygen Flow Rate 3 12/30/24 19:55 12/30/24 20:00 12/30/24 20:05 Temperature 37.3 C Pulse Rate 60 60 60 Respiratory Rate 16 Blood Pressure 145/66 H Pulse Oximetry 100 Oxygen Delivery Oxygen Flow Rate 12/31/24 00:00 12/31/24 00:00 12/31/24 04:00 Temperature 37.1 C Pulse Rate 53 L 54 L 55 L Respiratory Rate 16 Blood Pressure 107/45 L Pulse Oximetry 100 Oxygen Delivery Oxygen Flow Rate 12/31/24 08:00 12/31/24 08:00 12/31/24 08:00 Temperature 36.8 C Pulse Rate 63 70 Respiratory Rate 18 Blood Pressure 132/58 L Pulse Oximetry 100 100 Oxygen Delivery Nasal Cannula Oxygen Flow Rate 3 12/31/24 08:13 12/31/24 10:07 Temperature Pulse Rate 63 77 Respiratory Rate 20 Blood Pressure Pulse Oximetry Oxygen Delivery Oxygen Flow Rate Intake/Output Intake/Output: Intake & Output 12/28/24 12/29/24 12/30/24 12/31/24 23:59 23:59 23:59 23:59 Intake Total 650 525.2 Output Total 600 800 Balance 50 -274.8 Meds/Results Medications: Active Medications Generic Name Dose Route Start Last Admin Trade Name Freq PRN Reason Stop Dose Admin Hydrocodone Bitart/Acetaminophen 1 tab 04/08/25 19:13 12/31/24 12:15 Hydrocodone/Acetaminophen (*Crx) 5-325 Mg Tablet PO 1 tab Q4-6H PRN Administration Pain Rated 1-3 Albuterol/Ipratropium 3 ml 12/29/24 19:13 12/31/24 10:06 Ipratropium 0.5 Mg/Albuterol Sulfate 2.5 Mg Ampul.Neb 3 Ml INHALATION 3 ml Q6HRT PRN Administration Shortness Of Breath Alprazolam 0.25 mg 12/29/24 19:13 12/31/24 08:13 Alprazolam (*Crx) 0.25 Mg Tablet PO 0.25 mg TID PRN Administration Anxiety Apixaban 10 mg 12/31/24 21:00 Apixaban 5 Mg Tablet PO Q12HR MINGO Dextrose 12.5 gm 12/30/24 08:55 Dextrose 50% 25 Gm/50 Ml Syringe IV PUSH PRN PRN Hypoglycemia Protocol Enoxaparin Sodium 40 mg 12/30/24 09:00 12/30/24 10:06 Enoxaparin 40 Mg/0.4 Ml Syringe SUB-Q 40 mg DAILY MINGO Administration Glucagon 1 mg 12/30/24 08:55 Glucagon For Inj 1 Mg Vial IM PRN PRN Hypoglycemia Protocol Glucose 15 gm 12/30/24 08:55 Glucose Oral Gel 15 Gm Of Glucse In 37.5 Gm Tube PO PRN PRN Hypoglycemia Protocol Heparin Sodium (Porcine) 4,500 units 12/30/24 17:24 Heparin Sodium 5,000 Units/Ml Vial IV PUSH PRN PRN aPTT less than 55 seconds Heparin Sodium (Porcine) 2,500 units 12/30/24 17:24 Heparin Sodium 5,000 Units/Ml Vial IV PUSH PRN PRN aPTT 55 - 70 seconds Dextrose 1,000 mls @ 100 mls/hr 12/30/24 08:55 Dextrose 5% 1,000 Ml IVPB PRN PRN Hypoglycemia Protocol Heparin Sodium/Dextrose 25,000 units in 250 mls @ 11 mls/hr 12/30/24 17:25 12/31/24 05:49 Heparin Sodium/D5w 100 Units/Ml IV CONT 1,100 units/hr .[id number] MINGO 11 mls/hr Titration Protocol 1,100 UNITS/HR Insulin Aspart 3 - 6 units 12/30/24 12:00 12/31/24 12:14 Insulin Aspart (*Bkc) 100 Units/Ml SUB-Q Not Given TIDWM [facility] Protocol Insulin Aspart 1 - 3 units 12/30/24 21:00 12/30/24 20:00 Insulin Aspart (*Bkc) 100 Units/Ml SUB-Q Not Given HS [facility] Protocol Lisinopril 5 mg 12/30/24 09:00 12/31/24 08:13 Lisinopril 5 Mg Tablet PO 5 mg QAM MINGO Administration Metoprolol Tartrate 25 mg 12/29/24 21:00 12/31/24 08:13 Metoprolol Tartrate 25 Mg Tablet PO 25 mg Q12HR MINGO Administration Perflutren Lipid Microsphere 0 ml 12/29/24 19:13 Perflutren Lipid Microspheres 1.5 Ml Vial Diluted To 10 Ml Total Volume IV PUSH ONCE PRN adequate visualization Protocol Radiology Results: ITS Impressions Chest CT 12/30/24 12:16 IMPRESSION: Improved aeration when compared with previous examination dated 12/13/2024. Interval resolution of the right-sided pleural effusion. Redemonstration of peripheral pleural-based right-sided pulmonary masses, possibly leading to chest discomfort, for which clinical correlation is needed. Interval development of a small pericardial effusion, not present on the previous examination. Pulmonary Perfusion Imaging 12/30/24 15:10 IMPRESSION: 1. High probability for pulmonary embolism. 2. Diffuse decreased washout the lungs consistent with obstructive pulmonary disease with corresponding moderate emphysema seen on prior CT. Venous Doppler Study 12/30/24 19:04 IMPRESSION: Negative bilateral lower extremity venous US. No deep vein thrombosis. Labs Labs: Laboratory Results - last 24 hr 12/30/24 12/30/24 12/30/24 16:40 17:42 19:57 WBC 6.3 RBC 3.84 L Hgb 9.5 L Hct 34.0 L MCV 88.5 MCH 24.7 L MCHC 27.9 L RDW 17.4 H Plt Count 291 MPV 10.4 Immature Gran % (Auto) 0.3 Neut % (Auto) 80.1 H Lymph % (Auto) 9.4 L [place] % (Auto) 9.8 H Eos % (Auto) 0.2 Baso % (Auto) 0.2 Lymph # (Auto) 0.59 L [place] # (Auto) 0.6 Eos # (Auto) 0.0 Baso # (Auto) 0.0 Abs Immat Gran (auto) 0.02 Absolute Neuts (auto) 5.1 Absolute Nucleated RBC 0.000 Band Neutrophils % 0 Nucleated RBC % 0.0 Platelet Estimate Adequate Hypochromasia 1+ Anisocytosis 2+ Schistocytes None seen PT 13.7 INR 1.0 APTT 30.3 Sodium Potassium Chloride Carbon Dioxide Anion Gap BUN Creatinine Estim Creat Clear Calc Estimated GFR Glucose POC Capillary Glucose 145 H 157 H Calcium Magnesium 12/31/24 12/31/24 12/31/24 00:15 05:10 07:56 WBC 5.4 RBC 3.56 L Hgb 8.6 L Hct 32.2 L MCV 90.4 MCH 24.2 L MCHC 26.7 L RDW 17.2 H Plt Count 238 MPV 10.0 Immature Gran % (Auto) 0.2 Neut % (Auto) 62.3 Lymph % (Auto) 25.4 [place] % (Auto) 10.8 H Eos % (Auto) 0.9 Baso % (Auto) 0.4 Lymph # (Auto) 1.36 [place] # (Auto) 0.6 Eos # (Auto) 0.1 Baso # (Auto) 0.0 Abs Immat Gran (auto) 0.01 Absolute Neuts (auto) 3.3 Absolute Nucleated RBC 0.000 Band Neutrophils % Not Reportable Nucleated RBC % 0.0 Platelet Estimate Adequate Hypochromasia 1+ Anisocytosis Schistocytes None seen PT INR APTT 76.2 H 79.0 H Sodium 140 Potassium 3.8 Chloride 99 Carbon Dioxide > 40 H Anion Gap BUN 21 H Creatinine 0.45 L Estim Creat Clear Calc 83 Estimated GFR > 60 Glucose 116 H POC Capillary Glucose 105 Calcium 9.2 Magnesium 2.0 12/31/24 11:45 WBC RBC Hgb Hct MCV MCH MCHC RDW Plt Count MPV Immature Gran % (Auto) Neut % (Auto) Lymph % (Auto) [place] % (Auto) Eos % (Auto) Baso % (Auto) Lymph # (Auto) [place] # (Auto) Eos # (Auto) Baso # (Auto) Abs Immat Gran (auto) Absolute Neuts (auto) Absolute Nucleated RBC Band Neutrophils % Nucleated RBC % Platelet Estimate Hypochromasia Anisocytosis Schistocytes PT INR APTT Sodium Potassium Chloride Carbon Dioxide Anion Gap BUN Creatinine Estim Creat Clear Calc Estimated GFR Glucose POC Capillary Glucose 171 H Calcium Magnesium Quality VTE Prophylaxis VTE prophylaxis: pharmacologic ordered
--- NOTE | 2024-12-31 14:21 | P.DS_ITS ---
DS: Admitting Diagnosis Discharge Date 12/31/2024 Admitting Diagnosis shortness of breath DS: Summary Time Spent with Patient Time attestation: Total time spent providing and/or coordinating discharge services: DS: Data Data Completed and Pending Labs on day of discharge: Labs from last 24 hours 12/31/24 12/31/24 12/31/24 11:45 07:56 05:10 WBC 5.4 RBC 3.56 L Hgb 8.6 L Hct 32.2 L MCV 90.4 MCH 24.2 L MCHC 26.7 L RDW 17.2 H Plt Count 238 MPV 10.0 Immature Gran % (Auto) 0.2 Neut % (Auto) 62.3 Lymph % (Auto) 25.4 [place] % (Auto) 10.8 H Eos % (Auto) 0.9 Baso % (Auto) 0.4 Lymph # (Auto) 1.36 [place] # (Auto) 0.6 Eos # (Auto) 0.1 Baso # (Auto) 0.0 Abs Immat Gran (auto) 0.01 Absolute Neuts (auto) 3.3 Absolute Nucleated RBC 0.000 Band Neutrophils % Not Reportable Nucleated RBC % 0.0 Platelet Estimate Adequate Hypochromasia 1+ Anisocytosis Schistocytes None seen PT INR APTT 79.0 H Sodium 140 Potassium 3.8 Chloride 99 Carbon Dioxide > 40 H Anion Gap BUN 21 H Creatinine 0.45 L Estim Creat Clear Calc 83 Estimated GFR > 60 Glucose 116 H POC Capillary Glucose 171 H 105 Calcium 9.2 Magnesium 2.0 12/31/24 12/30/24 12/30/24 00:15 19:57 17:42 WBC 6.3 RBC 3.84 L Hgb 9.5 L Hct 34.0 L MCV 88.5 MCH 24.7 L MCHC 27.9 L RDW 17.4 H Plt Count 291 MPV 10.4 Immature Gran % (Auto) 0.3 Neut % (Auto) 80.1 H Lymph % (Auto) 9.4 L [place] % (Auto) 9.8 H Eos % (Auto) 0.2 Baso % (Auto) 0.2 Lymph # (Auto) 0.59 L [place] # (Auto) 0.6 Eos # (Auto) 0.0 Baso # (Auto) 0.0 Abs Immat Gran (auto) 0.02 Absolute Neuts (auto) 5.1 Absolute Nucleated RBC 0.000 Band Neutrophils % 0 Nucleated RBC % 0.0 Platelet Estimate Adequate Hypochromasia 1+ Anisocytosis 2+ Schistocytes None seen PT 13.7 INR 1.0 APTT 76.2 H 30.3 Sodium Potassium Chloride Carbon Dioxide Anion Gap BUN Creatinine Estim Creat Clear Calc Estimated GFR Glucose POC Capillary Glucose 157 H Calcium Magnesium 12/30/24 16:40 WBC RBC Hgb Hct MCV MCH MCHC RDW Plt Count MPV Immature Gran % (Auto) Neut % (Auto) Lymph % (Auto) [place] % (Auto) Eos % (Auto) Baso % (Auto) Lymph # (Auto) [place] # (Auto) Eos # (Auto) Baso # (Auto) Abs Immat Gran (auto) Absolute Neuts (auto) Absolute Nucleated RBC Band Neutrophils % Nucleated RBC % Platelet Estimate Hypochromasia Anisocytosis Schistocytes PT INR APTT Sodium Potassium Chloride Carbon Dioxide Anion Gap BUN Creatinine Estim Creat Clear Calc Estimated GFR Glucose POC Capillary Glucose 145 H Calcium Magnesium Discharge Plan Discharge Consulting providers: Miley Rodrigez; Vishal Sharp Patient Instructions: Heart Failure (GEN) Patient Language: Ethiopian Discharge Medications: No Action cyclobenzaprine 10 mg tablet 5 - 10 mg PO TID PRN (Reason: muscle spasm) Qty: 90 5RF lisinopril 5 mg tablet 5 mg PO DAILY Qty: 30 11RF Patient Comments: QAM omeprazole 40 mg capsule,delayed release(DR/EC) 40 mg PO DAILY Qty: 30 11RF metoprolol tartrate 25 mg tablet 25 mg PO BID Qty: 60 11RF lisinopril 5 mg Tablet 5 mg PO QAM Qty: 90 0RF (DME) nebulizer and compressor Device See Rx Instructions .Route Qty: 1 0RF Rx Instructions: As directed alprazolam 0.5 mg Tablet 0.5 mg PO TID PRN (Reason: Anxiety) Qty: 15 0RF ipratropium-albuterol 0.5 mg-3 mg(2.5 mg base)/3 mL Solution For Nebulization 3 ml inhalation Q6HRT PRN (Reason: shortness of breath or wheezing) Patient Comments: DOESN'T HAVE NEBULIZER MACHINE YET Slow Fe 137 mg (45 mg iron) tablet extended release 137 mg PO DAILY albuterol sulfate 90 mcg/actuation HFA aerosol inhaler 1 - 2 inh inhalation Q4-6H PRN (Reason: shortness of breath or wheezing) Qty: 8.5 0RF Date of admission: 12/29/24 17:15 Primary Care Provider: Jessie Mijares Admitting Provider: Dilan Deleon Attending physician on admission: Abe Haque Condition: Stable
--- NOTE | 2024-12-31 14:42 | P.PNCA_ITS ---
Progress Note: A&P Assessment and Plan (1) Shortness of breath: Code(s): R06.02 - Shortness of breath Status: Acute Assessment and Plan: Shortness breath is multifactorial including pneumonia, lung cancer, COPD/acute on chronic hypoxemic respiratory failure. It is noncardiac as noted by her coronary angiogram yesterday showing no obstructive coronary disease. Echo showed normal LV systolic function with grade I diastolic dysfunction and pulmonary hypertension. No further cardiac workup indicated or recommended. (2) Hypertension: Code(s): I10 - Essential (primary) hypertension Status: Acute Assessment and Plan: Continue metoprolol (3) Non-small cell lung cancer: Code(s): C34.90 - Malignant neoplasm of unspecified part of unspecified bronchus or lung Status: Acute Assessment and Plan: Per oncology/pulmonary (4) Chronic obstructive pulmonary disease: Code(s): J44.9 - Chronic obstructive pulmonary disease, unspecified Status: Chronic Assessment and Plan: Consult hospitalist. Plan Patient admitted for concern of STEMI. Cardiac catheterization showed no obstructive coronary artery disease. Primary diagnosis revised to pulmonary embolism, and etiology of her shortness of breath as above is multifactorial including COPD, lung cancer, and new diagnosis of PE. She requires continued i npatient care for noncardiac issues including social disposition. Hospitalist service has signed off. Cardiology remains as primary service to manage cardiac problems, any questions regarding medical management should be directed to the hospitalist. Subjective Date/time seen: 12/31/24 14:42 Interval history: 69-year-old female with a history of a TAVR and recent diagnosis of lung cancer and pneumonia. Admitted for shortness of breath. EKG initially showed some concerns for an ST-elevation myocardial infarction. Patient was taken emergently to cardiac catheterization lab and she was found have no obstructive coronary disease. Date of service 12/30/2024: No groin pain. No chest pain. No shortness breath at rest. Date of service 12/31/2024: Still feels short of breath but states this is her baseline. No chest pain. Review of Systems Review of Systems: All systems reviewed & are unremarkable except as noted in HPI and below Exam Const: General: comfortable, no acute distress, alert and awake Orientation/consciousness: patient oriented x3 HENMT: Head: normal to inspection Eyes: General: appearance normal, both eyes and all related structures Pupils: Equal, round and reactive pupils present Neck: Neck: normal visual inspection, supple and no JVD Carotids: normal carotid upstroke Resp: Effort & Inspection: normal respiratory effort Auscultation: clear to auscultation bilaterally, no rales and diminished lung sounds Other: on supplemental O2 Cardio: Rate: regular rate Rhythm: regular rhythm Heart sounds: S1 normal heart sound present, S2 normal heart sound present and no murmurs GI: Auscultation: normal bowel sounds Skin: General skin exam: normal color Neuro: General: patient oriented x3 Cranial nerves: Yes Equal, round and reactive pupils present Extrem: General: normal to inspection Other: Right groin is stable without hematoma, ecchymosis or bruit. Psych: Appearance: grossly normal Mental Status: mental status grossly normal Objective Data Vital Signs Vital Signs: Vital Signs - 24 hr 12/30/24 16:00 12/30/24 16:00 12/30/24 17:53 Temperature 36.6 C Pulse Rate 92 83 Respiratory Rate 20 Blood Pressure 115/80 Pulse Oximetry 99 99 Oxygen Delivery Nasal Cannula Oxygen Flow Rate 3 12/30/24 19:55 12/30/24 20:00 12/30/24 20:05 Temperature 37.3 C Pulse Rate 60 60 60 Respiratory Rate 16 Blood Pressure 145/66 H Pulse Oximetry 100 Oxygen Delivery Oxygen Flow Rate 12/31/24 00:00 12/31/24 00:00 12/31/24 04:00 Temperature 37.1 C Pulse Rate 53 L 54 L 55 L Respiratory Rate 16 Blood Pressure 107/45 L Pulse Oximetry 100 Oxygen Delivery Oxygen Flow Rate 12/31/24 08:00 12/31/24 08:00 12/31/24 08:00 Temperature 36.8 C Pulse Rate 63 70 Respiratory Rate 18 Blood Pressure 132/58 L Pulse Oximetry 100 100 Oxygen Delivery Nasal Cannula Oxygen Flow Rate 3 12/31/24 08:13 12/31/24 10:07 Temperature Pulse Rate 63 77 Respiratory Rate 20 Blood Pressure Pulse Oximetry Oxygen Delivery Oxygen Flow Rate Intake/Output Intake/Output: Intake & Output 12/28/24 12/29/24 12/30/24 12/31/24 23:59 23:59 23:59 23:59 Intake Total 650 525.2 Output Total 600 800 Balance 50 -274.8 Meds/Results Medications: Active Medications Generic Name Dose Route Start Last Admin Trade Name Freq PRN Reason Stop Dose Admin Hydrocodone Bitart/Acetaminophen 1 tab 12/29/24 19:13 12/31/24 12:15 Hydrocodone/Acetaminophen (*Crx) 5-325 Mg Tablet PO 1 tab Q4-6H PRN Administration Pain Rated 1-3 Albuterol/Ipratropium 3 ml 12/29/24 19:13 12/31/24 10:06 Ipratropium 0.5 Mg/Albuterol Sulfate 2.5 Mg Ampul.Neb 3 Ml INHALATION 3 ml Q6HRT PRN Administration Shortness Of Breath Alprazolam 0.25 mg 12/29/24 19:13 12/31/24 08:13 Alprazolam (*Crx) 0.25 Mg Tablet PO 0.25 mg TID PRN Administration Anxiety Apixaban 10 mg 12/31/24 21:00 Apixaban 5 Mg Tablet PO Q12HR MINGO Dextrose 12.5 gm 12/30/24 08:55 Dextrose 50% 25 Gm/50 Ml Syringe IV PUSH PRN PRN Hypoglycemia Protocol Enoxaparin Sodium 40 mg 12/30/24 09:00 12/30/24 10:06 Enoxaparin 40 Mg/0.4 Ml Syringe SUB-Q 40 mg DAILY MINGO Administration Glucagon 1 mg 12/30/24 08:55 Glucagon For Inj 1 Mg Vial IM PRN PRN Hypoglycemia Protocol Glucose 15 gm 12/30/24 08:55 Glucose Oral Gel 15 Gm Of Glucse In 37.5 Gm Tube PO PRN PRN Hypoglycemia Protocol Heparin Sodium (Porcine) 4,500 units 12/30/24 17:24 Heparin Sodium 5,000 Units/Ml Vial IV PUSH PRN PRN aPTT less than 55 seconds Heparin Sodium (Porcine) 2,500 units 12/30/24 17:24 Heparin Sodium 5,000 Units/Ml Vial IV PUSH PRN PRN aPTT 55 - 70 seconds Dextrose 1,000 mls @ 100 mls/hr 12/30/24 08:55 Dextrose 5% 1,000 Ml IVPB PRN PRN Hypoglycemia Protocol Heparin Sodium/Dextrose 25,000 units in 250 mls @ 11 mls/hr 12/30/24 17:25 12/31/24 05:49 Heparin Sodium/D5w 100 Units/Ml IV CONT 1,100 units/hr .[id number] MINGO 11 mls/hr Titration Protocol 1,100 UNITS/HR Insulin Aspart 3 - 6 units 12/30/24 12:00 12/31/24 12:14 Insulin Aspart (*Bkc) 100 Units/Ml SUB-Q Not Given TIDWM MINGO Protocol Insulin Aspart 1 - 3 units 12/30/24 21:00 12/30/24 20:00 Insulin Aspart (*Bkc) 100 Units/Ml SUB-Q Not Given HS MINGO Protocol Lisinopril 5 mg 12/30/24 09:00 12/31/24 08:13 Lisinopril 5 Mg Tablet PO 5 mg QAM MINGO Administration Metoprolol Tartrate 25 mg 12/29/24 21:00 12/31/24 08:13 Metoprolol Tartrate 25 Mg Tablet PO 25 mg Q12HR MINGO Administration Perflutren Lipid Microsphere 0 ml 12/29/24 19:13 Perflutren Lipid Microspheres 1.5 Ml Vial Diluted To 10 Ml Total Volume IV PUSH ONCE PRN adequate visualization Protocol Radiology Results: ITS Impressions Chest CT 12/30/24 12:16 IMPRESSION: Improved aeration when compared with previous examination dated 12/13/2024. Interval resolution of the right-sided pleural effusion. Redemonstration of peripheral pleural-based right-sided pulmonary masses, possibly leading to chest discomfort, for which clinical correlation is needed. Interval development of a small pericardial effusion, not present on the pr evious examination. Pulmonary Perfusion Imaging 12/30/24 15:10 IMPRESSION: 1. High probability for pulmonary embolism. 2. Diffuse decreased washout the lungs consistent with obstructive pulmonary disease with corresponding moderate emphysema seen on prior CT. Venous Doppler Study 12/30/24 19:04 IMPRESSION: Negative bilateral lower extremity venous US. No deep vein thrombosis. Labs Labs: Laboratory Results - last 24 hr 12/30/24 12/30/24 12/30/24 16:40 17:42 19:57 WBC 6.3 RBC 3.84 L Hgb 9.5 L Hct 34.0 L MCV 88.5 MCH 24.7 L MCHC 27.9 L RDW 17.4 H Plt Count 291 MPV 10.4 Immature Gran % (Auto) 0.3 Neut % (Auto) 80.1 H Lymph % (Auto) 9.4 L George % (Auto) 9.8 H Eos % (Auto) 0.2 Baso % (Auto) 0.2 Lymph # (Auto) 0.59 L George # (Auto) 0.6 Eos # (Auto) 0.0 Baso # (Auto) 0.0 Abs Immat Gran (auto) 0.02 Absolute Neuts (auto) 5.1 Absolute Nucleated RBC 0.000 Band Neutrophils % 0 Nucleated RBC % 0.0 Platelet Estimate Adequate Hypochromasia 1+ Anisocytosis 2+ Schistocytes None seen PT 13.7 INR 1.0 APTT 30.3 Sodium Potassium Chloride Carbon Dioxide Anion Gap BUN Creatinine Estim Creat Clear Calc Estimated GFR Glucose POC Capillary Glucose 145 H 157 H Calcium Magnesium 12/31/24 12/31/24 12/31/24 00:15 05:10 07:56 WBC 5.4 RBC 3.56 L Hgb 8.6 L Hct 32.2 L MCV 90.4 MCH 24.2 L MCHC 26.7 L RDW 17.2 H Plt Count 238 MPV 10.0 Immature Gran % (Auto) 0.2 Neut % (Auto) 62.3 Lymph % (Auto) 25.4 George % (Auto) 10.8 H Eos % (Auto) 0.9 Baso % (Auto) 0.4 Lymph # (Auto) 1.36 George # (Auto) 0.6 Eos # (Auto) 0.1 Baso # (Auto) 0.0 Abs Immat Gran (auto) 0.01 Absolute Neuts (auto) 3.3 Absolute Nucleated RBC 0.000 Band Neutrophils % Not Reportable Nucleated RBC % 0.0 Platelet Estimate Adequate Hypochromasia 1+ Anisocytosis Schistocytes None seen PT INR APTT 76.2 H 79.0 H Sodium 140 Potassium 3.8 Chloride 99 Carbon Dioxide > 40 H Anion Gap BUN 21 H Creatinine 0.45 L Estim Creat Clear Calc 83 Estimated GFR > 60 Glucose 116 H POC Capillary Glucose 105 Calcium 9.2 Magnesium 2.0 12/31/24 11:45 WBC RBC Hgb Hct MCV MCH MCHC RDW Plt Count MPV Immature Gran % (Auto) Neut % (Auto) Lymph % (Auto) George % (Auto) Eos % (Auto) Baso % (Auto) Lymph # (Auto) George # (Auto) Eos # (Auto) Baso # (Auto) Abs Immat Gran (auto) Absolute Neuts (auto) Absolute Nucleated RBC Band Neutrophils % Nucleated RBC % Platelet Estimate Hypochromasia Anisocytosis Schistocytes PT INR APTT Sodium Potassium Chloride Carbon Dioxide Anion Gap BUN Creatinine Estim Creat Clear Calc Estimated GFR Glucose POC Capillary Glucose 171 H Calcium Magnesium Quality VTE Prophylaxis VTE prophylaxis: pharmacologic ordered
[2024-12-31 16:37] LABS: Glucose Point of Care 179 mg/dl (65-105)
[2024-12-31 20:10] LABS: Glucose Point of Care 116 mg/dl (65-105)
[2024-12-31] MEDS: APIXABAN 5 MG TABLET 10 MG PO (20:24)
[2025-01-01] VITALS (9 sets, daily range): BP systolic 147–169; BP diastolic 56–63; PULSE 61–78; RESP 18; TEMP 36.2–36.7; O2SAT 96–99
[2025-01-01 05:57] LABS: Partial Thromboplastin Time 30.2 Seconds (22.3-36.8)
[2025-01-01 08:24] LABS: Glucose Point of Care 114 mg/dl (65-105)
[2025-01-01] MEDS: APIXABAN 5 MG TABLET 10 MG PO (08:35)
[2025-01-01] MEDS: METOPROLOL TARTRATE 25 MG TABLET PO (08:35)
[2025-01-01] MEDS: lisinopriL 5 MG TABLET PO (08:36)
[2025-01-01] MEDS: HYDROcodone/acetaminophen (*CRX) 5-325 MG TABLET 1 TAB PO ×2 (08:37→13:37)
[2025-01-01] MEDS: ALPRAZolam (*CRX) 0.25 MG TABLET PO (08:39)
[2025-01-01 12:15] LABS: Glucose Point of Care 114 mg/dl (65-105)
--- NOTE | 2025-01-01 14:10 | P.DS_ITS ---
DS: Admitting Diagnosis Discharge Date 01/01/25 Admitting Diagnosis shortness of breath DS: Discharge Diagnosis Discharge Diagnosis (1) Shortness of breath: Code(s): R06.02 - Shortness of breath Status: Acute Assessment and Plan: Shortness breath is multifactorial including pneumonia, lung cancer, COPD/acute on chronic hypoxemic respiratory failure. It is noncardiac as noted by her coronary angiogram yesterday showing no obstructive coronary disease. Echo showed normal LV systolic function with grade I diastolic dysfunction and pulmonary hypertension. No further cardiac workup indicated or recommended. (2) Hypertension: Code(s): I10 - Essential (primary) hypertension Status: Acute Assessment and Plan: Continue metoprolol (3) Non-small cell lung cancer: Code(s): C34.90 - Malignant neoplasm of unspecified part of unspecified bronchus or lung Status: Acute Assessment and Plan: Per oncology/pulmonary (4) Chronic obstructive pulmonary disease: Code(s): J44.9 - Chronic obstructive pulmonary disease, unspecified Status: Chronic Assessment and Plan: Consult hospitalist. Plan Patient admitted for concern of STEMI. Cardiac catheterization showed no obstructive coronary artery disease. Primary diagnosis revised to pulmonary embolism, and etiology of her shortness of breath as above is multifactorial including COPD, lung cancer, and new diagnosis of PE. She requires continued inpatient care for noncardiac issues including social disposition. Hospitalist service has signed off. Cardiology remains as primary service to manage cardiac problems, any questions regarding medical management should be directed to the hospitalist. DS: Summary Hospital Course Hospital Course: Patient presented to the emergency department on 12/30/2024 with a chief complaint of shortness of breath. EKG concerning for ST-elevation NV, therefore she was taken to the cardiac geophysical laboratory chief emergently for coronary angiogram and possible PCI. In the geophysical laboratory chief, she was found to have minimal coronary irregularities. She was subsequently found to have a pulmonary embolism. She was placed on appropriate anticoagulation for this. Shortness of breath is improving but she does have baseline shortness of breath because of her COPD and lung cancer. Hospitalist service deemed her appropriate for discharge yesterday from a medical standpoint. She does not have any active cardiac issues. She remained in the hospital yesterday for social disposition and has been placed at [facility]. She is stable and appropriate for discharge today. Time Spent with Patient Time attestation: Total time spent providing and/or coordinating discharge services: Exam Const: General: comfortable, no acute distress, alert and awake Orientation/consciousness: patient oriented x3 HENMT: Head: normal to inspection Eyes: General: appearance normal, both eyes and all related structures Pupils: Equal, round and reactive pupils present Neck: Neck: normal visual inspection, supple and no JVD Carotids: normal carotid upstroke Resp: Effort & Inspection: normal respiratory effort Auscultation: clear to auscultation bilaterally, no rales and diminished lung sounds Other: on supplemental O2 Cardio: Rate: regular rate Rhythm: regular rhythm Heart sounds: S1 normal heart sound present, S2 normal heart sound present and Murmur heart sound present systolic GI: Auscultation: normal bowel sounds Skin: General skin exam: normal color Neuro: General: patient oriented x3 Cranial nerves: Yes Equal, round and reactive pupils present Extrem: General: normal to inspection Other: Right groin is stable without hematoma, ecchymosis or bruit. Psych: Appearance: grossly normal Mental Status: mental status grossly normal DS: Data Data Completed and Pending Labs on day of discharge: Labs from last 24 hours 01/01/25 01/01/25 01/01/25 11:47 07:58 05:22 APTT 30.2 POC Capillary Glucose 114 H 114 H 12/31/24 12/31/24 20:06 16:32 APTT POC Capillary Glucose 116 H 179 H Discharge Plan Discharge Attending physician on discharge: Jack Chase Consulting providers: Vishal Sharp Discharging Clinician: Yaneli William Patient Disposition: SNF Activity: other - see discharge instructions Diet: heart healthy Wound Care Instructions: other - see discharge instructions Discharge Instructions: [facility] [address] [place] [address] DISCHARGE INSTRUCTIONS - POST CARDIAC CATH Activity Restriction 1. No Driving for 24 hours 2. No lifting, pushing or pulling more than 10 LBS for 1 week 3. No strenuous activity or exercising for 1 week 4. Shower after 24 hours, do not soak in any water such as hot tubs or bath tubs Wound Care 1. Remove dressing 24 hours after your procedure prior to showering 2. Lather soap and water to puncture site and rinse then pat dry 3. You may apply a new band aid to the site and remove after 24 hours then leav e open to air 4. Monitor daily for redness, drainage, mild swelling and fever Report IMMEDIATELY: CALL 911 1. If you experience any swelling or bleeding from puncture site. Hold firm pressure over the puncture site until help arrives 2. If you experience any new discomfort in you back, neck, jaw, stomach or arm. Any shortness of breath, nausea, vomiting, or cold sweats 3. If you experience any swelling, tenderness, or numbness in your leg or if your leg becomes cold or has color changes. Follow Up 1. Follow your doctors discharge instructions on resuming your medications. Some medications will need to be held after your procedure 2. Follow up with the office to schedule your next appointment with your doctor 3. Drink plenty of water following your procedure, avoid alcohol If you received a stent or a closure device keep your card with you such as in your wallet. Present your card to your doctor appointments to update your health care information. *For any other questions please call the office at [phone]. Office hours are 8AM 4:30PM Saturday through Saturday. Patient Instructions: Heart Failure (GEN) Patient Language: Frisian Stand Alone Forms: General Discharge Information Follow-up/Referrals: Dilan Deleon MD [Physician] - Call for Appointment Discharge Medications: New Eliquis 5 mg tablet 5 mg PO BID Qty: 80 0RF Rx Instructions: Take TWO tabs (10mg total) twice daily for 7 total days. THEN take 1 tab (5mg total) twice daily for the next 5 weeks. Continued cyclobenzaprine 10 mg tablet 5 - 10 mg PO TID PRN (Reason: muscle spasm) Qty: 90 5RF lisinopril 5 mg tablet 5 mg PO DAILY Qty: 30 11RF Patient Comments: QAM omeprazole 40 mg capsule,delayed release(DR/EC) 40 mg PO DAILY Qty: 30 11RF metoprolol tartrate 25 mg tablet 25 mg PO BID Qty: 60 11RF lisinopril 5 mg Tablet 5 mg PO QAM Qty: 90 0RF (DME) nebulizer and compressor Device See Rx Instructions .Route Qty: 1 0RF Rx Instructions: As directed alprazolam 0.5 mg Tablet 0.5 mg PO TID PRN (Reason: Anxiety) Qty: 15 0RF ipratropium-albuterol 0.5 mg-3 mg(2.5 mg base)/3 mL Solution For Nebulization 3 ml inhalation Q6HRT PRN (Reason: shortness of breath or wheezing) Patient Comments: DOESN'T HAVE NEBULIZER MACHINE YET Slow Fe 137 mg (45 mg iron) tablet extended release 137 mg PO DAILY albuterol sulfate 90 mcg/actuation HFA aerosol inhaler 1 - 2 inh inhalation Q4-6H PRN (Reason: shortness of breath or wheezing) Qty: 8.5 0RF Date of admission: 12/29/24 17:15 Primary Care Provider: Jessie Mijares Admitting Provider: Dilan Deleon Attending physician on admission: Abe Haque Condition: Stable Quality VTE Prophylaxis VTE prophylaxis: pharmacologic ordered
[2025-01-01 16:47] LABS: SARS-CoV-2 RNA PCR Negative (Negative)
[2025-01-01 17:04] LABS: Glucose Point of Care 156 mg/dl (65-105)
== END 2025-01-01 17:33 | DRG 175 ==
LOC: ANHED 16:48 → ANHICU 17:16 → ANH2MED 12-30 18:18
PROVIDERS: Internal Medicine; Physician Assistant; Admitting Provider Internal Medicine Cardiovascular Disease; Emergency Provider Student in an Organized Health Care Education/Training Program; PCP Nurse Practitioner Family; Visit Provider Internal Medicine
PROC: 4A023N7 Measurement of Cardiac Sampling and Pressure, Left Heart, Percutaneous Approach (ICD-10-PCS; CPT 93452; principal; 2024-12-29 17:00)
PROC: 4A023N7 Measurement of Cardiac Sampling and Pressure, Left Heart, Percutaneous Approach (ICD-10-PCS; 2024-12-29 17:00)
DX: I26.99 Other pulmonary embolism without acute cor pulmonale (principal); J96.21 Acute and chronic respiratory failure with hypoxia; C34.91 Malignant neoplasm of unspecified part of right bronchus or lung; F41.9 Anxiety disorder, unspecified; I11.0 Hypertensive heart disease with heart failure; I50.9 Heart failure, unspecified; J44.9 Chronic obstructive pulmonary disease, unspecified; R94.31 Abnormal electrocardiogram [ECG] [EKG]; R73.9 Hyperglycemia, unspecified; Z79.01 Long term (current) use of anticoagulants; Z11.52 Encounter for screening for COVID-19; Z20.822 Contact with and (suspected) exposure to COVID-19; Z87.891 Personal history of nicotine dependence; Z99.81 Dependence on supplemental oxygen; Z95.4 Presence of other heart-valve replacement; Z91.041 Radiographic dye allergy status
CPT/HCPCS: 36415; 71250; 78582; 80048; 80053; 82948; 83036; 83735; 83880; 84484; 85025; 85610; 85730; 87635; 87637; 93005; 93306; 93458; 93970; 94640; 96374; 96375; 97161; 97165; 97535; 99285; A9270; A9540; A9558; C1760; C1769; C1887; C1894; G0269; J1200; J1644; J1650; J2003; J2250; J2919; J3010; J7030; J7040

== ENCOUNTER 2025-01-11 21:44 | Inpatient (IN) | payer MEDICARE, SELFPAY ==
--- NOTE | ~2025-01-11 | CT_ITS ---
EXAMINATION: CT chest abdomen pelvis wo con DATE: 01/12/2025 00:28 INDICATION: syncope, hypotension . TECHNIQUE: Computed tomography (CT) of the chest, abdomen, and pelvis was performed with 100 mL Omnip aque-350 intravenous contrast. Automated exposure control and iterative reconstruction technique were employed. The dose-length product was 805.28 mGy-cm. COMPARISON: CT cap 12/09/2024; CT chest 12/30/2024 FINDINGS: CHEST: Thoracic aorta: No significant dilation. No dissection. Mild atherosclerotic calcification. Lung parenchyma and airways: Severe emphysematous change. Granulomatous calcifications. Masslike and nodular areas of peripheral consolidation in the right middle lobe and right lower lobe, similar in s ize to the most recent study. Patent airways with mild bronchial wall thickening. Thoracic inlet, axillae and chest wall: No thyroid or soft tissue mass. No axillary lymphadenopathy. Left chest implanted port terminating in the right atrium. Mediastinum: No mass or lymphadenopathy. Heart and pericardium: Aortic valve replacement. Mild cardiomegaly. Trace pericardial fluid. Coronary artery calcifications: Mild. Pleura: No effusion or mass. Thoracic bones: No acute osseous finding in the chest. ABDOMEN/PELVIS: Liver: Normal. Biliary/Gallbladder: Cholelithiasis. No inflammatory change. No bile duct dilation. Pancreas: No mass or duct dilation. Spleen: Normal. Adrenals:No mass. Kidneys: No suspicious mass, obstructing stone, or hydronephrosis. GI tract: No small or large bowel dilation. Normal appendix. Diverticulosis without diverticulitis. Mesentery/Peritoneum: No ascites, mass, or free air. Retroperitoneum: No mass Atherosclerotic calcifications of intra-abdominal arterial vessels. Pelvis: Partially distended urinary bladder with mild wall thickening. Normal uterus and left ovary. Right ovary is not confidently visualized. Soft Tissues: Soft tissues and body wall unremarkable. Abdominopelvic bones: No acute osseous finding in the abdomen/pelvis. IMPRESSION: Unchanged masslike opacities in the peripheral right mid and lower lung, may represent infection or n eoplastic disease. Cystitis versus bladder wall thickening from incomplete distention. Otherwise, no acute abdominopelvic process detected. Reviewed, dictated and finalized at location K. IMPRESSION: Unchanged masslike opacities in the peripheral right mid and lower lung, may re present infection or neoplastic disease. Cystitis versus bladder wall thickening from incomplete distention. Otherwise, no acute abdominopelvic process detected.
--- NOTE | ~2025-01-11 | XR_ITS ---
EXAMINATION: XR chest 1V portable DATE: 01/12/2025 14:15 INDICATION: Shortness of breath TECHNIQUE: frontal view of the chest was obtained. COMPARISON: Chest radiograph and CT dated 01/11/2025 FINDINGS: Left internal jugular central venous port catheter with distal tip at the superior cavoatrial junctio n. Persistent peripheral masslike patchy airspace opacities at the lateral right mid and lower lung z ones. This appears increased at the lateral right lung base when compared with study dated 12/22/2024. Mild opacities at the left lower lung zone. Calcified nodules at the left lung base consistent with o ld granulomatous disease. No pneumothorax. There is blunting at the costophrenic angles which could r epresent small bilateral pleural effusions. Cardia megaly change of prior aortic valve repair. Surgic al clips the right neck suggesting prior right carotid endarterectomy. IMPRESSION: 1. Persistent patchy masslike opacities at the lateral right mid and lower lung zones which are suspi cious for malignancy. 2. Blunting at the bilateral costophrenic angles suggesting small bilateral pleural effusions. 3. Increasing opacities at the lateral right lung base which could be due to pleural effusion, atelec tasis or pneumonia. 4. Cardia megaly. Reviewed, dictated and finalized at location A. IMPRESSION: 1. Persistent patchy masslike opacities at the lateral right mid and lower lung zones which are suspicious for malignancy. 2. Blunting at the bilateral costophrenic angles suggesting small bilateral ple ural effusions. 3. Increasing opacities at the lateral right lung base which could be due to pl eural effusion, atelectasis or pneumonia. 4. Cardia megaly.
--- NOTE | ~2025-01-11 | XR_ITS ---
EXAMINATION: XR chest 1V portable Exam Date/Time: 01/11/2025 21:50 CDT HISTORY: syncopal Comparison: 12/22/2024. RESULT: Lines, tubes, and devices: Cardiac valve replacement. Left chest implanted port, tip in the right at rium. Lungs and pleura: Decreasing peripheral consolidation in the right mid and lower lung. Granulomas ca lcifications. Mild diffuse reticular opacities Cardiomediastinal silhouette: Stable. Other: No acute osseous or upper abdominal finding. IMPRESSION: Improving peripheral right mid and lower lung consolidation. Mild interstitial edema. Reviewed, dictated and finalized at location K.
--- NOTE | ~2025-01-11 | CT_ITS ---
EXAMINATION: CT brain wo con DATE: 01/12/2025 00:27 INDICATION: syncope . TECHNIQUE: Computed tomography (CT) of the head was performed without intravenous contrast. The mA wa s adjusted according to patient size. Iterative reconstruction technique was employed. The dose-lengt h product was 605.33 mGy-cm. COMPARISON: 12/17/2024. FINDINGS: No acute intracranial hemorrhage or extra-axial fluid collection. No hydrocephalus, mass, or herniation. No acute ischemic infarct. Unremarkable dural venous sinus attenuation. No acute osseous abnormality. The aerated spaces are clear. Mild atrophy and chronic white matter change. Atherosclerotic intracranial calcification. Bilateral l ens replacements. Old bilateral basal ganglia lacunar infarcts. IMPRESSION: No acute intracranial process. Reviewed, dictated and finalized at location K.
[2025-01-11 21:41] VITALS: BP 70/38; PULSE 44; RESP 21; O2SAT 89
[2025-01-12] VITALS (33 sets, daily range): BP systolic 82–146; BP diastolic 46–93; PULSE 44–91; RESP 14–22; TEMP 36.3–37.1; O2SAT 92–100; BMI 27.0
[2025-01-12 00:32] LABS: Base Excess ABG 3.7 mEq/l (+/-2.0); Fractional Inspired Oxygen 32 %; HCO3 ABG 29.3 mEq/l (22.0-26.0); Oxygen Content ABG 9.1 %vol (16.0-22.0); Oxygen Saturation ABG 98.7 % (95.0-100.0); Oxyhemoglobin 97.1 % THb (90.0-100.0); PCO2 ABG 51.9 mmHg (35.0-45.0); PO2 ABG 142.2 mmHg (80.0-100.0); PO2 FiO2 Ratio Arterial Blood 4.44 %
[2025-01-12 00:34] LABS: Total Hemoglobin 6.4 g/dL (12.0-18.0)
[2025-01-12 00:35] LABS: Modified Allen's Test Pass; Site Drawn RIGHT RADIAL
[2025-01-12 00:36] LABS: Device NASAL CANNULA
--- NOTE | 2025-01-12 00:41 | ED_ITS ---
HPI - General Adult General Chief complaint: Syncope Stated complaint: SYNCOPAL Time Seen by Provider: 01/11/25 21:46 History of Present Illness HPI narrative: Patient 69-year-old female who presents emergency department with chief complaint of syncopal episode. Patient has history of lung cancer and apparently has a new mass in her lung. The patient reports that she has not really been drinking over the last several days has been nauseated patient states that she got up to the bathroom had a syncopal episode patient was bradycardic and also hypotensive when EMS arrived. Related Data Home Medications ?Medication ?Instructions ?Recorded ?Confirmed ?Last Taken ?Type ferrous sulfate 137 mg (45 mg 137 mg PO DAILY 01/06/24 12/29/24 12/29/24 History iron) tablet,extended release (Slow Fe) ipratropium 0.5 mg-albuterol 3 mg 3 ml inhalation Q6HRT PRN 12/21/24 12/29/24 12/29/24 History (2.5 mg base)/3 mL nebulization shortness of breath or wheezing soln Allergies Allergy/AdvReac Type Severity Reaction Status Date / Time iohexol (From contrast - CT, AdvReac FLUSHED, Verified 12/22/24 08:30 X-RAY) HOT FEELING Review of Systems 2 Review of Systems: A 10 system review of systems was completed on the patient and is negative except for what is stated in the HPI. Nursing and ancillary documentation was reviewed. [facility] Past Medical History Medical History Moderate pulmonic regurgitation and right ventricular dilation by prior echocardiogram Moderate pulmonary hypertension Diastolic dysfunction grade 1 diastolic dysfunction on echo in December 2024 with an EF of 60 to 65% Non-small cell carcinoma of right lung, stage 4 (11/2024) arising in a pleural based mass in the right mid to lower lung with malignant effusion Chronic respiratory failure with hypoxia, on home oxygen therapy Chronic obstructive pulmonary disease Bleeding gastric ulcer Hypertension History of blood transfusion Seasonal allergies Tension headache Depression Cervicalgia Low back pain Migraines Anxiety Anemia Surgical History Surgical History History of cardiac catheterization (12/29/24) minimal irregularities with possible apical inferior hypokinesis and an EF 55% History of transcatheter aortic valve implantation (REYNA) (2022) via right neck History of laparoscopy History of esophagogastroduodenoscopy (EGD) History of (1980) Family History Family History Father Alcoholism Heart disease Hypertension Grandparent Carcinoma of colon Acute myocardial infarction Social History Social History Social History: Surrogate medical decision maker: rosa Cisneros Code status: Full code. Smoking packs per day: 1 Smoking cigarettes per day: 20.0 Years smoked: 50 Smoking pack-years: 50.00 Smoking status: Former smoker Tobacco type: cigarettes Smoking end date: 09/23/23 Alcohol intake: never Substance use: never Substance use type: does not use Do You Feel Safe in your Home?: Yes Lack of Transportation: No Lack of Food: Never True Current Housing: I Have Housing Concerned About Future Housing: No Difficulty Paying Gas/Electric Bills: No Difficulty Paying for Meds: No Currently Unemployed: No Education: Associate Degree Difficulty w/ Childcare or Family Care: No Living arrangements: with family Additional living arrangements comments: SISTER Spiritual care concerns: No Exam 2 Narrative: GENERAL: Well-appearing, well-nourished, and in no acute distress. HEAD: Normocephalic, atraumatic. EYES: PERRLA and EOMI. ENT: Nares clear, no rhinorrhea or epistaxis. Mucous membranes moist. NECK: Supple. CHEST: Clear to auscultation. No respiratory distress. HEART: Regular rate and rhythm. No murmur heard. Normal peripheral pulses. ABDOMEN: Soft, nontender, nondistended, normal active bowel sounds. : Guaiac-positive stool EXTREMITIES: Normal range of motion. No edema. SKIN: Warm, dry, no rash. NEURO: No focal deficits. Alert and oriented x3. PSYCH: Normal mood and affect. Course Vital Signs Vital signs: Vital Signs Pulse Rate 44 L 01/11/25 21:41 Respiratory Rate 21 H 01/11/25 21:41 Blood Pressure 70/38 L 01/11/25 21:41 Pulse Oximetry 89 L 01/11/25 21:41 Oxygen Delivery Room Air 01/11/25 21:41 Pulse Rate 44 L 01/11/25 21:41 Respiratory Rate 21 H 01/11/25 21:41 Blood Pressure 70/38 L 01/11/25 21:41 Pulse Oximetry 89 L 01/11/25 21:41 Oxygen Delivery Room Air 01/11/25 21:41 Medical Decision Making MDM Narrative Medical decision making narrative: Differential diagnosis includes the dysrhythmia, dehydration, renal failure, GI bleed, anemia, ACS Laboratory studies were obtained on the patient showed a hemoglobin of 5.9 type and cross was obtained 2 units packed red blood cells were ordered for the patient as she was hypotensive and also had guaiac-positive stool. The patient received fluid resuscitation is feeling much better CT scans of the head chest abdomen pelvis were obtained that showed no acute abnormalities Vital Signs Vital Signs: Vital Signs Pulse Rate 44 L 01/11/25 21:41 Respiratory Rate 21 H 01/11/25 21:41 Blood Pressure 70/38 L 01/11/25 21:41 Pulse Oximetry 89 L 01/11/25 21:41 Oxygen Delivery Room Air 01/11/25 21:41 Pulse Rate 44 L 01/11/25 21:41 Respiratory Rate 21 H 01/11/25 21:41 Blood Pressure 70/38 L 01/11/25 21:41 Pulse Oximetry 89 L 01/11/25 21:41 Oxygen Delivery Room Air 01/11/25 21:41 Lab Data 01/11/25 22:08 01/11/25 22:08 Labs: Lab Results 01/11/25 Range/Units 22:08 WBC Pending RBC Pending Hgb Pending Hct Pending MCV Pending MCH Pending MCHC Pending RDW Pending Plt Count Pending MPV Pending Immature Gran % (Auto) Pending Neut % (Auto) Pending Lymph % (Auto) Pending [place] % (Auto) Pending Eos % (Auto) Pending Baso % (Auto) Pending Lymph # (Auto) Pending [place] # (Auto) Pending Eos # (Auto) Pending Baso # (Auto) Pending Abs Immat Gran (auto) Pending Absolute Neuts (auto) Pending Absolute Nucleated RBC Pending Nucleated RBC % Pending PT Pending INR Pending APTT Pending Sodium Pending Potassium Pending Chloride Pending Carbon Dioxide Pending Anion Gap Pending BUN Pending Creatinine Pending Estim Creat Clear Calc Pending Estimated GFR Pending Glucose Pending Lactic Acid Pending Calcium Pending Magnesium Pending Total Bilirubin Pending AST Pending ALT Pending Alkaline Phosphatase Pending Troponin I Pending NT-Pro-B Natriuret Pep Pending Total Protein Pending Albumin Pending Lipase Pending Procalcitonin Pending Influenza A (RT-PCR) Pending Influenza B (RT-PCR) Pending RSV (RT-PCR) Pending SARS-CoV-2 RNA (RT-PCR) Pending ABG Data ABG results: 01/11/25 22:04 Puncture Site Right radial ABG pH 7.370 ABG pCO2 51.9 H ABG pO2 142.2 H ABG PO2/FiO2 Ratio 4.44 ABG HCO3 29.3 H ABG O2 Saturation 98.7 ABG O2 Content 9.1 L ABG Base Excess 3.7 A-a Gradient Not Reportable Oxyhemoglobin 97.1 Total Hemoglobin 6.4 L* O2 Delivery Device Nasal cannula O2 Liters/Min 3.0 FiO2 32 Critical Care Time Critical Care Time Critical Care Time: Yes Total Critical Care Time: 75 Discharge Plan Discharge Clinical Impression: Syncope, Guaiac positive stools, Acute anemia Patient Disposition: Still a Patient Condition: Stable Patient Language: Croatian Prescriptions: No Action cyclobenzaprine 10 mg tablet 5 - 10 mg PO TID PRN (Reason: muscle spasm) Qty: 90 5RF lisinopril 5 mg tablet 5 mg PO DAILY Qty: 30 11RF Patient Comments: QAM omeprazole 40 mg capsule,delayed release(DR/EC) 40 mg PO DAILY Qty: 30 11RF metoprolol tartrate 25 mg tablet 25 mg PO BID Qty: 60 11RF lisinopril 5 mg Tablet 5 mg PO QAM Qty: 90 0RF (DME) nebulizer and compressor Device See Rx Instructions .Route Qty: 1 0RF Rx Instructions: As directed alprazolam 0.5 mg Tablet 0.5 mg PO TID PRN (Reason: Anxiety) Qty: 15 0RF Eliquis 5 mg tablet 5 mg PO BID Qty: 80 0RF Rx Instructions: Take TWO tabs (10mg total) twice daily for 7 total days. THEN take 1 tab (5mg total) twice daily for the next 5 weeks. ipratropium-albuterol 0.5 mg-3 mg(2.5 mg base)/3 mL Solution For Nebulization 3 ml inhalation Q6HRT PRN (Reason: shortness of breath or wheezing) Patient Comments: DOESN'T HAVE NEBULIZER MACHINE YET Slow Fe 137 mg (45 mg iron) tablet extended release 137 mg PO DAILY albuterol sulfate 90 mcg/actuation HFA aerosol inhaler 1 - 2 inh inhalation Q4-6H PRN (Reason: shortness of breath or wheezing) Qty: 8.5 0RF Follow-up/Referrals: Jessie Mijares NP [Primary Care Provider] - Time of Disposition: 00:44
[2025-01-12 00:48] LABS: INR 1.4; Partial Thromboplastin Time 31.6 Seconds (22.3-36.8); Prothrombin Time 17.5 Seconds (11.1-14.7)
--- OUTSIDE RECORDS SUMMARY | 2025-01-12 01:12 | XMS_ITS | Clinical Summary ---
Author Organization [facility] Adrian purdy Johanne Address [address] [place] [address] Care Team Providers Care Heat Reader Name Role Phone Unavailable Primary Care Provider [...] Encounters Date Type Department Care Team Description 01/11/2025 Telephone [facility] Oncology and Hematology - [place] [address] [place] [address] Abdias Lozano MD Missed Appointments 12/31/2024 Telephone [facility] Oncology and Hematology - [place] [address] [place] [address] Abdias Lozano MD [employer] 12/29/2024 External Device Data STL ABSTRACTION Provider, Abstract 12/29/2024 External Device Data STL ABSTRACTION Provider, Abstract 12/29/2024 External Device Data STL ABSTRACTION Provider, Abstract 12/25/2024 10:00 AM CDT Office Visit [facility] Oncology and Hematology [address] [place] [id number] Abdias Lozano MD Malignant neoplasm of lung, unspecified laterality, unspecified part of lung (CMS/HCC) (Primary Dx); Anxiety state; Chronic anemia 12/25/2024 Orders Only [facility] Oncology and Hematology [address] [place] [phone] Abdias Lozano MD Malignant neoplasm of lung, [...] YEARS (1 of 2 - PCV) 06/18/19 Traditional Medicare (O) Annual Wellness Visit 06/18 [...] ORDERABLES Final Resu lt [facility] [address], [address] [place] [address], [facility] [address], [address] [place] [address] from Last 3 Months Insurance MEDICARE PART A AND B
--- OUTSIDE RECORDS SUMMARY | 2025-01-12 01:13 | XMS_ITS | Clinical Summary ---
Author Organization [facility] Address [address], [facility] [address] [place] [address] Phone Care Team Providers Care Certified Registered Nurse Practitioner Name Role Phone Usama Jc MD Unavailable [phone] Monet Graham MD Primary Care Provider + [...] on file Legal Sex Female 9:37 AM FLARE BREAKER Gender Identity Not on file Sexual Orientation Not on file Last Filed Vital Signs Vital Sign Reading Time Taken Comments Blood Pressure 112/70 10/24/2022 3:09 PM FLARE BREAKER Pulse 59 10/24/2022 3:09 PM FLARE BREAKER Temperature 36.7 C (98.1 F) 10/24/2022 3:09 PM FLARE BREAKER Respiratory Rate - - Oxygen Saturation 100% 10/24/2022 3:09 PM FLARE BREAKER Inhaled Oxygen Concentration - - Weight 54 kg (119 lb) 10/24/2022 3:09 PM FLARE BREAKER Height 160 cm (5' 3 ) 10/24/2022 3:09 PM FLARE BREAKER Body Mass Index 21.08 10/24/2022 3:09 PM FLARE BREAKER Plan of Treatment Health Maintenance Due Date [...] complete this topic Insurance MEDICARE Care Teams Certified Registered Nurse Practitioner Relationship Specialty Start Date End Date Monet Graham MD [address] [place] [address] PCP - General Emergency Medicine 10/15/22 Usama Jc MD [address] [address] Consulting Physician Oncology 10/15/22
--- OUTSIDE RECORDS SUMMARY | 2025-01-12 01:13 | XMS_ITS | Encounter Summary ---
Author Organization [facility] Address [address] [place] [address] Care Team Providers Care Beauty Sales Advisor Name Role Phone Raya Merlos Primary Care Provider [phone] Karin Alvarado MA Unavailable [phone] Karin Rosen Unavailable Reason for Visit * Reason Onset Date Comments General 11/29/2023 Encounter Details Date Type Department Care Team (Late st Contact Info) Description 11/29/2023 Telephone [facility] - Family Medicine [address] [place] [address] Raya Merlos PA [address] [place] [address] General Social History Tobacco Use [...] Date Recorded PHQ2 TOTAL SCORE 2 03/20/2023 [facility] Occupat ional Health - Occupational Stress [...] place to sleep or slept in a fpc (including now)? Patient unable to answer 09/05/2023 Comments No Sex and Gender Information Value Date Recorded Sex Assigned at Not on file Legal Sex Female 7:28 PM ROTATING FIELD ASSEMBLER Gender Identity Not on file Sexual Orientation Not on file documented as of this encounter Functional Status * Is person deaf or have serious hearing difficulty? Answer Date of Assessment Author No 09/11/2023 10:16 AM Nicole Yang RN * Is person blind or have serious difficulty seeing? Answer Date of Assessment Author No 09/11/2023 10:16 AM Nicole Yang RN * Does person have serious difficulty walking/climbing stairs? Answer Date of Assessment Author Yes 09/11/2023 10:16 AM Nicole Yang RN * Does person have difficulty dressing/bathing? Answer Date of Assessment Author No 09/11/2023 10:16 AM Nicole Yang RN * Does person have difficulty doing errands alone? Answer Date of Assessment Author No 09/11/2023 10:16 AM Nicole Yang RN documented as of this encounter Mental Status * Does person have difficulty concentrating/remembering/making decisions? Answer Entry Date Author No 09/11/2023 10:16 AM Nicole Yang RN documented in this encounter Miscellaneous Notes * Telephone Encounter - Zayda Calderon LPN - 12/02/2023 9:30 AM CDT Called patient she is going to Est with a new provider Dr Jurado in [facility] she has an appt needs refills until she sees new provider * Telephone Encounter - Rupali Vaughn CNA - 11/29/2023 3:25 PM ROTATING FIELD ASSEMBLER [facility] was calling needing refill on Omeprazole, lisinopril, tizanidine, ferrous sulfate, amitriptyline. TING FIELD ASSEMBLER documented in this encounter Plan of Treatment Not on file documented as of this encounter Visit Diagnoses Not on filedocumented in this encounter Additional Health Concerns Infection Onset Date Last Indicated Resolved Time ESBL GNR Comment:Urine 09/08/23; 09/08/2023 09/08/2023 documented as of this encounter Care Teams Beauty Sales Advisor Relationship Specialty Start Date End Date Raya Merlos PA [address] [place] [phone] PCP - General Physician Wrapper Stitcher 02/23/21 Karin Alvarado MA Care Coordination Specialist Care Management 01/14/24 02/28/24 Karin Rosen Care Coordination Specialist Care Management 07/24/24 09/07/24 documented as of this encounter
--- OUTSIDE RECORDS SUMMARY | 2025-01-12 01:13 | XMS_ITS | Clinical Summary ---
Author Organization [facility] Address [address] [place] [address] Care Team Providers Care Field Marketing Director Name Role Phone Raya Merlos Primary Care Provider [phone] Source Comments [facility],non-owned Affiliates and Associated Physician Practices is amultiple site organization consisting of ambulatory clinics and hospital sitesin [place], [place], [place] and [place]. This disclosure is being madepursuant to the Care Everywhere program and may not contain all information available regarding this patient. Last updated 18.[facility] Allergies Active Allergy Reactions Criticality Noted Date Comments Contrast-Iodinated Agents For Ct/Other Anaphylaxis High 08/01/2014 Medications * Be aware that medications may not be up to date on this document. Alwaysverify current medications with the patient. albuterol (Proventil;Tomasa gloria) (5 MG/ML) 0.5% nebulizer solution Take by nebulization every 6 (six) hours if needed for Wheezing or Shortness of Breath Active metoprolol tartrate IR (Lopressor) 25 MG tablet Take 0.5 (one-half) tablet by mouth 2 times daily 90 tablet 1 06/20/20 23 Active HYDROcodone-acet aminophen ([place]) 5-325 MG tabletIndication s:Chronic pain of both shoulders Take 1 (one) tablet by mouth every 6 hours as needed 20 tablet 09/11/20 23 Active lidocaine (Lidoderm) 5 % patch Apply 1 (one) patch to skin every 24 hours Apply patch to most painful area and remove after 12 hours. May reapply a new patch 12 hours later. 09/12/20 23 Active nitrofurantoin monohyd macro crystals (Macrobid) 100 MG capsule Take 1 (one) capsule by mouth 2 times daily 09/11/20 23 Active tiZANidine HCl 4 MG Take 4 mg by mouth once daily as needed 30 capsule 12/02/19 24 Active omeprazole (PriLOSEC) 40 MG capsuleIndicatio ns:Gastroesophag eal Reflux Disease Take 1 (one) capsule by mouth 2 times daily, before breakfast and supper Reasons: Gastroesophageal Reflux Disease 30 capsule 12/02/19 24 Active lisinopril (Prinivil; Zestril) 5 MG tabletIndication s:Essential hypertension Take 1 (one) tablet by mouth once daily 30 tablet 12/02/19 24 Active Ferrous Sulfate (Slow Fe) 142 (45 Fe) MGIndications:Ir on deficiency anemia, unspecified iron deficiency anemia type Take 1 tablet by mouth once daily 30 tablet 12/02/19 24 Active amitriptyline (Elavil) 25 MG tabletIndication s:Chronic tension-type headache, not intractable Take 1 (one) tablet by mouth every evening 30 tablet 12/02/19 24 Active Active Problems Problem Noted Date Diagnosed [...] 08/10/2014 11/25/2019 COPD exacerbation 08/06/2014 11/25/2019 Immunizations Immunization Administration Dates Next Due INFLUENZA VACCINE 07/09/2014 [...] Date Recorded PHQ2 TOTAL SCORE 2 03/20/2023 [facility] [place] of Occupat ional Health - Occupational Stress [...] on file Legal Sex Female 7:28 PM PRESSURE SEALER AND TESTER Gender Identity Not on file Sexual Orientation Not on file Last Filed Vital Signs Vital Sign Reading Time Taken Comments Blood Pressure 90/57 09/11/2023 7:13 AM PRESSURE SEALER AND TESTER Pulse 96 09/11/2023 7:13 AM PRESSURE SEALER AND TESTER Temperature 36.9 C (98.4 F) 09/11/2023 7:13 AM PRESSURE SEALER AND TESTER Respiratory Rate 18 09/10/2023 11:2 7 PM PRESSURE SEALER AND TESTER Oxygen Saturation 98% 09/11/2023 7:13 AM PRESSURE SEALER AND TESTER Inhaled Oxygen Concentration 50% 02/18/2021 8 :35 AM CDT Weight 53.5 kg (117 lb 15.1 oz) 09/06/2023 4:33 AM PRESSURE SEALER AND TESTER Height 160 cm (5' 3 ) 09/05/2023 1:11 AM PRESSURE SEALER AND TESTER Body Mass Index 20.89 09/05/2023 1:11 AM PRESSURE SEALER AND TESTER Plan of Treatment Health Maintenance Due Date [...] BLOOD FECES IMMUNOASSAY STAT 09/04/2023 10:00 PM PRESSURE SEALER AND TESTER from Last 3 Months or Most Recently Relevant to Health Maintenance Results * OCCULT BLOOD FECES IMMUNOASSAY (09/04/2023 10:00 PM PRESSURE SEALER AND TESTER) Occult Blood Immunoassay Negative Negative 09/04/2023 10:17 PM PRESSURE SEALER AND TESTER [facility] Stool STOOL SPECIMEN / Unknown Collection / Unknown 09/04/2023 10:00 PM PRESSURE SEALER AND TESTER 09/04/2023 10:05 PM PRESSURE SEALER AND TESTER us Monet Graham MD LAB - MICROBIOLOGY ORDER SHIMA Final Result Performing Organization Address City/State/[facility] Co de Phone Number [facility] [address] from Last 3 Months or Most Recently Relevant to Health Maintenance Additional Health Concerns Infection Onset Date Last Indicated ESBL GNR Comment:Urine 09/08/23; 09/08/2023 09/08/2023 Insurance MEDICARE MEDICARE SELF PAY NO INSURANCE Member Subscriber Plan / Payer (Ef fective for All Dates) Name:Inez Allen Member ID:Not on file Relation to Subscriber:Not on file Name:INEZ ALLEN Subscriber ID:Not on file (Home) Address: [address] [place] [address] Payer ID:Not on file Group ID:Not on file Type:Self Pay Address: [place], [place] Advance Directives * Full Code (Latest Code [...] 8:17 PM 08/11/2014 11:23 AM Care Teams Field Marketing Director Relationship Specialty Start Date End Date Raya Merlos PA [address] [place] [address] PCP - General Physician Tractor Expert 02/23/21
--- OUTSIDE RECORDS SUMMARY | 2025-01-12 01:13 | XMS_ITS | Clinical Summary ---
Author Organization [facility] Address [facility] [place] [address] Care Team Providers Care Combat Engineer Name Role Phone Raya Merlos Primary Care Provider [phone] Allergies Active Allergy Reactions Criticality Noted Date [...] (02/26/2023): Added automatically from request for surgery [id number] Iron deficiency anemia 11/09/2022 Acute blood loss anemia 07/18/2022 Upper GI bleed 07/18/2022 Atherosclerosis of aorta 09/25/2019 Overview (03/08/2023): 12.31.19 CT Abdomen & Pelvis Atherosclerotic nonaneurysmal abdominal aorta Generalized anxiety disorder 08/10/2014 Low back pain 08/10/2014 Overview (03/08/2023): OA (osteoarthritis) 08/10/2014 Pulmonary emphysema ([facility]CC [facility]/HCC) 08/10/2014 Overview (03/08/2023): Family History Medical [...] often do you attend chur ch or adventism services? Never 03/21/2023 Do you belong to any clubs o r organizations such as yarsani groups, unions, fraternal or athletic groups, or [...] Recorded Patient Health Questionnaire-2 Score 0 03/21/2023 [facility] [place] of Occupat ional Health - Occupational Stress [...] place to sleep or slept in a snf (including now)? No 03/21/2023 Comments No Sex [...] Vaccines (1 of 2) 2007 Pneumococcal Vaccine: 50+ Years (2 of 2 - PCV) 07/23/2013 [...] discharge from hospital Lifestyle No Sheyla Torres, SENIOR TELECOMMUNICATIONS TECHNICIAN Health - patient able to perform ADLs independently Lifestyle No John Bell, RN Medical Devices Implanted Type Area Cinder Worker Device Identifier Shelf Expiration Date Model / Serial / Lot Aortic Valve (Medtronic) Implant- [id number] Implanted:Qty: 1 on 03/06/2023 by Shahid Calderon MD Valve Implant Aorta [employer] 11/19/2024 EVOLUT-FX- [id number] / [id number] / Procedures Procedure Name Priority Date/Time Associated Diagnosis Comments OCCULT BLOOD, FECES STAT 03/21/2023 5 :30 PM CDT LIPID PANEL STAT 02/24/2023 10:45 AM CDT from Last 3 Months or Most Recently Relevant to Health Maintenance Results * OCCULT BLOOD, FECES (03/21/2023 5:30 PM CDT) OCCULT BLOOD FECAL POSITIVE 03/21/2023 6:30 PM CDT [facility] STOOL SPECIMEN / Unknown 03/21/2023 5:30 PM CDT Wilbert BUENO BODY FLUIDS AND STOOLS ORD ERABLES Final Result [facility] [address] [place] [address], * (ABNORMAL) LIPID PANEL (02/24/2023 10:45 AM CDT) CHOLESTEROL 203(H) <200 MG/DL 02/24/2023 3:24 PM CDT [facility] TRIGLYCERIDES 75 <150 MG/DL 02/24/2023 3:24 PM CDT [facility] HDL 62 >40.0 MG/DL 02/24/2023 3:24 PM CDT [facility] LDL (CALCULATED) 126(H) <100 MG/DL 02/24/2023 3:24 PM CDT [facility] NON HDL CHOLESTEROL 141(H) <130 MG/DL 02/24/2023 3:24 PM CDT [facility] CHOL/HDL RATIO 3.3 0.0 - 4.5 02/24/2023 3:24 PM CDT [facility] VLDL CALCULATION 15 5 - 55 MG/DL 02/24/2023 3:24 PM CDT [facility] LIPID INTERPRETATION 02/24/2023 3:24 PM CDT [facility] Comment: [facility] CONCENSUS REPORT RECOMMENDATIONS: ADULT CHILD LOW RISK: CHOLESTEROL <200 <170 TRIGLYCERIDE <150 --- HDL >=60 --- LDL <100 <110 BORDERLINE: CHOLESTEROL 200-239 170-199 TRIGLYCERIDE 150-199 --- HDL 40-59 --- LDL 100-159 110-129 HIGH RISK: CHOLESTEROL >=240 >=200 TRIGLYCERIDE >=200 --- HDL <40 --- LDL >=160 >=130 02/24/2023 10:4 5 AM CDT Mckenzie Neil MD LABORATORY Final Result [facility] [address] [place] [address], from Last 3 Months or Most Recently [...] 12:54 PM 03/01/2023 8:45 PM Care Teams Combat Engineer Relationship Specialty Start Date End Date Raya Merlos PA [address] [place] [address] PCP - General PHYSICIAN PARKER 03/06/23
--- OUTSIDE RECORDS SUMMARY | 2025-01-12 01:13 | XMS_ITS | Encounter Summary ---
Author Organization [facility] Address [address] [place] [address] Care Team Providers Care [facility] Hospitalist Name Role Phone Unavailable Primary Care Provider Unavailabl e Reason for Visit * Reason Onset Date Comments Missed Appointments 01/11/2025 Encounter Details Date Type Department Care Team (Late st Contact Info) Description 01/11/2025 Telephone [facility] Oncology and Hematology - [place] [address] [facility] [address] [place] [address] Abdias Lozano MD [address] [facility] [address] [place] [address] Missed Appointments Social History Tobacco Use Types Packs/Day Years [...] on file documented as of this encounter Miscellaneous Notes * Telephone Encounter - Vanessa Ace - 01/11/2025 2:22 PM CDT Patient no showed her Pet scan and her MRI brain. Patient was admitted to [facility] 12/29/24-12/31/24. Looks like when she was discharged from the hospital she was sent to [facility]. I called [facility] to verify that she is there. I was transferred to the [address] [place] [address] nurse but she was not able to talk. I left a voicemail for them to give our office a call back to find out what is going on and if she still wants treatment. I will wait for a call back. documented in this encounter Plan of Treatment Not on file documented as of this encounter Visit Diagnoses Not on filedocumented in this encounter
[2025-01-12 01:20] LABS: Lipase 37 U/L (23-300); Magnesium 2.1 mg/dL (1.6-2.3); NT Pro B Type Natriuretic Pept 2110 pg/mL (19.9-100)
[2025-01-12 01:21] LABS: Procalcitonin 0.1 ng/mL; Troponin I 0.037 ng/mL (0.000-0.034)
[2025-01-12 01:22] LABS: Alanine Aminotransferase 10 U/L (6-35); Albumin Level 3.3 g/dL (3.5-5.1); Alkaline Phosphatase 66 U/L (38-126); Anion Gap 3 mmol/L (4-12); Aspartate Amino Transferase 20 U/L (14-36); Bilirubin,Total 0.3 mg/dL (0.2-1.3); Blood Urea Nitrogen 25 mg/dL (7-17); Calcium 8.8 mg/dL (8.4-10.2); Carbon Dioxide 35 mmol/L (22-30); Chloride 101 mmol/L (98-107); Estimated CRCL calculation 60 ml/min; Estimated Glomerular Filt Rate > 60; Glucose 139 mg/dL (65-110); Potassium 4.4 mmol/L (3.4-5.0); Sodium 139 mmol/L (137-145)
[2025-01-12 01:26] LABS: Basophils Percent Auto 0.5 % (0.2-1.2); Eosinophils Absolute Auto 0.3 K/mm3 (0-0.3); Eosinophils Percent Auto 3.5 % (0-4.4); Hematocrit 22.3 % (37.0-47.0); Immature Granulocyte Absolute 0.05 K/mm3 (0.00-0.031); Immature Granulocyte Percent A 0.6 % (0-0.5); Lymphocytes Absolute Auto 0.88 K/mm3 (0.9-3.2); Mean Corpuscular HGB Conc 26.5 g/dl (32-36); Mean Corpuscular Hemoglobin 24.6 pg (26-34); Mean Corpuscular Volume 92.9 fl (80-100); Mean Platelet Volume 9.5 fl (7.4-10.4); Monocytes Absolute Auto 0.7 K/mm3 (0.1-0.6); Neutrophils Absolute Auto 6.1 K/mm3 (1.3-6.7); Neutrophils Percent Auto 75.4 % (45.5-73.1); Nucleated Red Blood Cells Perc 0.2 % (0.0-0.2); Platelet Count Result 321 k/mm3 (150-375); Red Cell Distribution Width 19.2 % (11.5-14.5)
[2025-01-12 01:34] LABS: Anisocytosis 2+; Microcytosis 2+ (NORMAL); Platelet Estimate Adequate (Adequate)
[2025-01-12 01:35] LABS: Hypochromasia 2+; Schistocytes Rare
[2025-01-12 01:41] LABS: Influenza A QL RT-PCR Negative (Negative); Influenza B QL RT-PCR Negative (Negative); RSV RNA, RT-PCR Negative (Negative); SARS-CoV-2 RNA PCR Negative (Negative)
[2025-01-12 01:57] LABS: BEDSIDEPREGUCG Negative (Negative)
--- NOTE | 2025-01-12 02:08 | ADMGEN ---
This patient, Inez Delgado, was admitted to [facility]U Room 201-01. Patient/family oriented to hospital policies and general routines including ID bracelet, bed and alarms, visiting hours, pain management, procedures, bathroom and other care routines, personal items, smoking policy, room service/diet, and visiting hours. Information on how to activate the Rapid Response Team has been discussed. Patient/Family are encouraged to report perceived risks to care and to ask questions if they do not understand what they are told or what they should do.
[2025-01-12 02:24] LABS: Troponin I 0.029 ng/mL (0.000-0.034)
[2025-01-12 02:39] LABS: Add Urine Microscopic? NO; Appearance Urine Clear (Clear); Bilirubin Urine Negative (Negative); Blood Urine Negative (Negative); Color Urine Yellow (Yellow); Glucose Urine UA Negative (Negative); Ketones Urine Negative (Negative); Leukocyte Esterase Ur Negative LEU/UL (Negative); Nitrate Urine Negative (Negative); Protein Urine Negative (Negative); Specific Grav Ur 1.013 (1.001-1.035); Urobilinogen Urine 0.2 mg/dL (<2.0)
[2025-01-12] MEDS: SODIUM CHLORIDE 0.9% IV 500 ML IV CONT (02:54)
[2025-01-12] MEDS: TUBING, BLOOD PLUM PUMP TUBING 1 EACH XX ×2 (02:54→05:09)
[2025-01-12] MEDS: SODIUM CHLORIDE 0.9% IV 250 ML 30 ML (02:54)
[2025-01-12 07:43] LABS: Hematocrit 30.1 % (37.0-47.0); Hemoglobin 8.7 g/dL (12.0-15.0); Mean Corpuscular HGB Conc 28.9 g/dl (32-36); Mean Corpuscular Hemoglobin 26.7 pg (26-34); Mean Corpuscular Volume 92.3 fl (80-100); Mean Platelet Volume 9.7 fl (7.4-10.4); Platelet Count Result 268 k/mm3 (150-375); Red Blood Count 3.26 M/mm3 (4.2-5.4); White Blood Count 6.5 K/mm3 (4.5-10.0)
[2025-01-12 08:07] LABS: Troponin I 0.031 ng/mL (0.000-0.034)
[2025-01-12] MEDS: PANTOPRAZOLE SODIUM IV 40 MG VIAL IV PUSH ×2 (08:14→20:04)
--- NOTE | 2025-01-12 08:22 | P.HP_ITS ---
H&P: HPI History of Present Illness Date/Time: 01/12/25 08:22 Chief Complaint: Syncope Narrative: Patient 69-year-old female who presents emergency department with chief complaint of syncopal episode. Patient has history of lung cancer and apparently has a new mass in her lung. The patient reports that she has not really been drinking over the last several days has been nauseated patient states that she got up to the bathroom had a syncopal episode patient was bradycardic and also hypotensive when EMS arrived. On ED arrival she was hypotensive with blood pressure of 70/38 pulse rate was 44 beats per minute oxygen saturation 89% on room air. Laboratory workup revealed hemoglobin of 5.9 FOBT was positive. Received IV fluid with improvement in blood pressure. CT scan of the head chest abdomen pelvis showed no acute abnormality. ABG 7.37/51/142/29. Patient was recently admitted earlier this month for concern for ST-elevation PR. cardiac catheterization showed no obstructive coronary artery disease. However was found to have pulmonary embolism with high probability V/Q scan and was started on anticoagulation. She was started on Eliquis PE on 01/01/2025. Lower extremity venous duplex was negative for DVT. Recent echocardiogram with EF 60-65% LV grade 1 diastolic dysfunction mild MR and TR moderate TR moderate pulmonary hypertension He was also recently diagnosed with stage IV non-small cell lung cancer arising in a pleural based mass in the right mid to lower lobe with pleural effusion. Which tested positive for adeno carcinoma Has underlying history of hypertension COPD aortic valve replacement chronic respiratory failure on home oxygen moderate pulmonary hypertension history of bleeding ulcers gastritis. Patient received 2 units of packed red blood cell transfusion. Hemoglobin post transfusion is up to 8.7. Hemoglobin at discharge was 8.6. She does have history of chronic normocytic anemia. Initial troponin was mildly elevated with subsequent levels normal. CT chest abdomen pelvis showed unchanged masslike opacities in the peripheral right mid and lower lung may represent infection or neoplastic disease. Cystitis versus bladder wall thickening from incomplete d istension. Otherwise no acute abdominopelvic process detected. She also has Port-A-Cath placed on 12/22/2024 for treatment of adenocarcinoma of the lung. He also recently had EGD done which is negative for any acute findings other than gastritis. Colonoscopy was planned as an outpatient basis. She is admitted in this setting for further treatment. Review of Systems Review of Systems: - CONSTITUTIONAL: Denies weight loss, fe martín and chills. - HEENT: Denies changes in vision and he aring - RESPIRATORY: Reports SOB and denies c ough. - CV: Denies palpitations and CP. - GI: Denies abdominal pain, nausea, vom iting and diarrhea. - : Denies dysuria and urinary frequen cy. - MSK: Denies myalgia and joint pain. - SKIN: Denies rash and pruritus. - NEUROLOGICAL: Denies headache and repo rts syncope. - PSYCHIATRIC: Denies recent changes in mood. Denies anxiety and depression. [facility] Past Medical History Medical History Moderate pulmonic regurgitation and right ventricular dilation by prior echocardiogram Moderate pulmonary hypertension Diastolic dysfunction grade 1 diastolic dysfunction on echo in December 2024 with an EF of 60 to 65% Non-small cell carcinoma of right lung, stage 4 (11/2024) arising in a pleural based mass in the right mid to lower lung with malignant effusion Chronic respiratory failure with hypoxia, on home oxygen therapy Chronic obstructive pulmonary disease Bleeding gastric ulcer Hypertension History of blood transfusion Seasonal allergies Tension headache Depression Cervicalgia Low back pain Migraines Anxiety Anemia Surgical History Surgical History History of cardiac catheterization (12/29/24) minimal irregularities with possible apical inferior hypokinesis and an EF 55% History of transcatheter aortic valve implantation (REYNA) (2022) via right neck History of laparoscopy History of esophagogastroduodenoscopy (EGD) History of (1980) Family History Family History Father Alcoholism Heart disease Hypertension Grandparent Carcinoma of colon Acute myocardial infarction Social History Social History Social History: Surrogate medical decision maker: rosa Cisneros Code status: Full code. Smoking packs per day: 1 Smoking cigarettes per day: 20.0 Years smoked: 50 Smoking pack-years: 50.00 Smoking status: Former smoker Tobacco type: cigarettes Smoking end date: 03/26/24 Alcohol intake: never Substance use: never Substance use type: does not use Do You Feel Safe in your Home?: Yes Lack of Transportation: No Lack of Food: Never True Current Housing: I Have Housing Concerned About Future Housing: No Difficulty Paying Gas/Electric Bills: No Difficulty Paying for Meds: No Currently Unemployed: No Education: Associate Degree Difficulty w/ Childcare or Family Care: No Living arrangements: with family Additional living arrangements comments: SISTER Spiritual care concerns: No Meds Home Medications and Allergies Home Medications ?Medication ?Instructions ?Recorded ?Confirmed ?Type cyclobenzaprine 10 mg tablet 5 - 10 mg (0.5 - 1 x 10 mg) PO TID 01/03/24 01/12/25 Rx PRN muscle spasm #90 tabs lisinopril 5 mg tablet 5 mg PO DAILY #30 tabs 01/03/24 01/12/25 Rx metoprolol tartrate 25 mg tablet 25 mg PO BID #60 tabs 01/03/24 01/12/25 Rx omeprazole 40 mg capsule,delayed 40 mg PO DAILY #30 caps 01/03/24 01/12/25 Rx release ferrous sulfate 137 mg (45 mg 137 mg PO DAILY 01/06/24 01/12/25 History iron) tablet,extended release (Slow Fe) alprazolam 0.5 mg tablet 0.5 mg PO TID PRN Anxiety #15 tabs 12/18/24 01/12/25 Rx lisinopril 5 mg tablet 5 mg PO QAM #90 tabs 12/18/24 01/12/25 Rx nebulizer and compressor #1 ea 12/18/24 01/12/25 Rx albuterol sulfate 90 mcg/actuation 1 - 2 inh inhalation Q4-6H PRN 12/21/24 01/12/25 Rx aerosol inhaler shortness of breath or wheezing #8.5 grams ipratropium 0.5 mg-albuterol 3 mg 3 ml inhalation Q6HRT PRN 12/21/24 01/12/25 History (2.5 mg base)/3 mL nebulization shortness of breath or wheezing soln apixaban 5 mg tablet (Eliquis) 5 mg PO BID #80 tabs 12/31/24 01/12/25 Rx hydrocodone 5 mg-acetaminophen 325 1 tablet PO Q6H PRN pain 01/12/25 01/12/25 History mg tablet ondansetron 4 mg disintegrating 4 mg PO Q8H PRN nausea and vomiting 01/12/25 01/12/25 History tablet oxycodone 5 mg tablet 5 mg PO Q6H PRN pain 01/12/25 01/12/25 History Allergies Allergy/AdvReac Type Severity Reaction Status Date / Time iohexol (From contrast - CT, AdvReac FLUSHED, Verified 12/22/24 08:30 X-RAY) HOT FEELING Vital Signs Vital Signs - 24 hr 01/11/25 21:41 01/12/25 01:17 01/12/25 01:23 Temperature 97.4 F L 97.5 F L Pulse Rate 44 L 46 L 48 L Respiratory Rate 21 H 14 16 Blood Pressure 70/38 L 101/50 L 89/56 L Pulse Oximetry 89 L 96 96 Oxygen Delivery Room Air Oxygen Flow Rate 01/12/25 02:30 01/12/25 02:33 01/12/25 02:45 Temperature 98.4 F Pulse Rate 44 L Respiratory Rate 16 Blood Pressure 89/46 L 90/50 L Pulse Oximetry 92 99 Oxygen Delivery Nasal Cannula Oxygen Flow Rate 3 01/12/25 03:30 01/12/25 03:33 01/12/25 03:48 Temperature 98.2 F 98.2 F Pulse Rate 54 L 54 L 54 L Respiratory Rate 18 18 18 Blood Pressure 82/48 L 82/48 L Pulse Oximetry 92 92 92 Oxygen Delivery Nasal Cannula Oxygen Flow Rate 3 01/12/25 04:00 01/12/25 04:00 01/12/25 04:09 Temperature 97.8 F 98.7 F Pulse Rate 49 L 56 L 91 Respiratory Rate 16 18 Blood Pressure 99/69 L 114/46 L Pulse Oximetry 93 94 Oxygen Delivery Oxygen Flow Rate 01/12/25 04:34 01/12/25 04:54 01/12/25 05:54 Temperature 97.8 F 97.8 F 98.4 F Pulse Rate 56 L 55 L 56 L Respiratory Rate 16 16 16 Blood Pressure 99/69 L 105/53 L 119/67 Pulse Oximetry 93 93 94 Oxygen Delivery Oxygen Flow Rate 01/12/25 06:00 01/12/25 06:54 01/12/25 07:03 Temperature 98.4 F 98.4 F Pulse Rate 52 L 50 L 50 L Respiratory Rate 16 16 Blood Pressure 122/58 L 122/58 L Pulse Oximetry 100 100 Oxygen Delivery Oxygen Flow Rate 01/12/25 07:46 01/12/25 07:50 Temperature 98.6 F Pulse Rate 57 L Respiratory Rate 16 Blood Pressure 142/56 H Pulse Oximetry 99 99 Oxygen Delivery Nasal Cannula Oxygen Flow Rate 3 Exam Narrative: GENERAL: Chronically ill-appearing, and in no acute distress. HEAD: Normocephalic, atraumatic. EYES: PERRLA and EOMI. ENT: Nares clear, no rhinorrhea or epistaxis. Mucous membranes moist. NECK: Supple. CHEST: Diminished breath sounds bilaterally No respiratory distress. On 3 L nasal cannula HEART: Regular rate and rhythm. No murmur heard. Normal peripheral pulses. ABDOMEN: Soft, nontender, nondistended, normal active bowel sounds. EXTREMITIES: Normal range of motion. No edema. SKIN: Warm, dry, no rash. NEURO: No focal deficits. Alert and oriented x3. PSYCH: Normal mood and affect. H&P: Results Labs Labs: Short CBC 01/11/25 01/12/25 Range/Units 22:08 07:26 WBC 8.0 6.5 (4.5-10.0) K/mm3 Hgb 5.9 L* 8.7 L (12.0-15.0) g/dL Hct 22.3 L 30.1 L (37.0-47.0) % Plt Count 321 268 (150-375) k/mm3 BMP 01/11/25 22:08 Sodium 139 Potassium 4.4 Chloride 101 Carbon Dioxide 35 H BUN 25 H Creatinine 0.68 L Glucose 139 H Calcium 8.8 Cardiac Enzymes 01/11/25 01/12/25 01/12/25 Range/Units 22:08 01:44 07:26 Troponin I 0.037 H* 0.029 D 0.031 (0.000-0.034) ng/mL Liver Function 01/11/25 Range/Units 22:08 Total Bilirubin 0.3 (0.2-1.3) mg/dL AST 20 (14-36) U/L ALT 10 (6-35) U/L Alkaline Phosphatase 66 (38-126) U/L Albumin 3.3 L (3.5-5.1) g/dL Urine 01/12/25 Range/Units 00:16 Urine Color Yellow (Yellow) Urine Appearance Clear (Clear) Urine pH 6.0 (5.0-9.0) Ur Specific [place] 1.013 (1.001-1.035) Urine Protein Negative (Negative) mg/dL Urine Glucose (UA) Negative (Negative) mg/dL Assessment and Plan Assessment and plan (1) Congestive heart failure: Qualifiers: Heart failure type: diastolic Heart failure chronicity: chronic Qualified Code(s): I50.32 - Chronic diastolic (congestive) heart failure Code(s): I50.9 - Heart failure, unspecified Status: Acute (2) Diastolic dysfunction: Code(s): I51.89 - Other ill-defined heart diseases Status: Acute (3) Hypertension: Code(s): I10 - Essential (primary) hypertension Status: Acute (4) Pulmonary embolism: Code(s): I26.99 - Other pulmonary embolism without acute cor pulmonale Status: Acute (5) Acute anemia: Code(s): D64.9 - Anemia, unspecified Status: Acute (6) Guaiac positive stools: Code(s): R19.5 - Other fecal abnormalities Status: Acute (7) Non-small cell carcinoma of right lung, stage 4: Onset Date: 11/2024 Code(s): C34.91 - Malignant neoplasm of unspecified part of right bronchus or lung Status: Acute (8) COPD (chronic obstructive pulmonary disease): Qualifiers: COPD type: unspecified COPD Qualified Code(s): J44.9 - Chronic obstructive pulmonary disease, unspecified Code(s): J44.9 - Chronic obstructive pulmonary disease, unspecified Status: Acute Plan Patient 69-year-old female who presents emergency department with chief complaint of syncopal episode. Patient has history of lung cancer and apparently has a new mass in her lung. The patient reports that she has not r eally been drinking over the last several days has been nauseated patient states that she got up to the bathroom had a syncopal episode patient was bradycardic and also hypotensive when EMS arrived. On ED arrival she was hypotensive with blood pressure of 70/38 pulse rate was 44 beats per minute oxygen saturation 89% on room air. Laboratory workup revealed hemoglobin of 5.9 FOBT was positive. R eceived IV fluid with improvement in blood pressure. CT scan of the head chest abdomen pelvis showed no acute abnormality. ABG 7.37/51/142/29. Patient was recently admitted earlier this month for concern for ST-elevation PR. cardiac catheterization showed no obstructive coronary artery disease. However was found to have pulmonary embolism with high probability V/Q scan and was started on anticoagulation. She was started on Eliquis PE on 01/01/2025. Lower extremity venous duplex was negative for DVT. Recent echocardiogram with EF 60-65% LV grade 1 diastolic dysfunction mild MR and TR moderate TR moderate pulmonary hypertension He was also recently diagnosed with stage IV non-small cell lung cancer arising in a pleural based mass in the right mid to lower lobe with pleural effusion. W hic tested positive for adeno carcinoma Has underlying history of hypertension COPD aortic valve replacement chronic respiratory failure on home oxygen moderate pulmonary hypertension history of bleeding ulcers gastritis. Patient received 2 units of packed red blood cell transfusion. Hemoglobin post transfusion is up to 8.7. Hemoglobin at discharge was 8.6. She does have history of chronic normocytic anemia. Initial troponin was mildly elevated with subsequent levels normal. CT chest abdomen pelvis showed unchanged masslike opacities in the peripheral right mid and lower lung may represent infection or neoplastic disease. Cystitis versus bladder wall thickening from incomplete distension. Otherwise no acute abdominopelvic process detected. She also has Port-A-Cath placed on 12/22/2024 for treatment of adenocarcinoma of the lung. He also recently had EGD done which is negative for any acute findings other than gastritis. Colonoscopy was planned as an outpatient basis. She is admitted in this setting for further treatment. Acute severe anemia needing transfusion patient is stable now. Off Eliquis. However will need anticoagulation for recently diagnosed PE. GI bleed with FOBT positive stool EGD recently with mild gastritis. Colonoscopy was planned as an outpatient basis. Will re-consult GI. Recently diagnosed PE with high probability V/Q scan on anticoagulation Recently diagnosed stage IV lung adeno carcinoma with malignant pleural effusion status post Port-A-Cath placement. Planned chemotherapy treatment Recent pneumonia right lower lung CT chest with resolution Allergy to IV iodine contrast Moderate pulmonic regurgitation and right ventricular dilation by prior echocardiogram Moderate pulmonary hypertension grade 1 diastolic dysfunction on echo in December 2024 with an EF of 60 to 65% Chronic respiratory failure with hypoxia, on home oxygen therapy Chronic obstructive pulmonary disease History of Bleeding gastric ulcer Hypertension Seasonal allergies Tension headache Depression Cervicalgia Low back pain Migraines Anxiety Anemia DVT prophylaxis SCDs Code status full code Hospitalist MIPS Advance Care Plan I have confirmed that the patient's Advanced Care Plan is present, code status is documented, or surrogate decision maker is listed in patient medical record.: Yes Medication Reconciliation I have utilized all available resources to obtain, update and review the patients current medications (includes all prescriptions, OTC, herbals, cannabis, and nutritional supplements).: Yes
[2025-01-12] MEDS: HYDROcodone/acetaminophen (*CRX) 5-325 MG TABLET 1 TAB PO (08:50)
[2025-01-12] MEDS: FERROUS SULFATE DRIED 142 MG TABCR PO (08:50)
--- NOTE | 2025-01-12 09:11 | P.CONGI_ITS ---
Assessment and Plan Assessment and plan (1) Acute anemia: Code(s): D64.9 - Anemia, unspecified Status: Acute (2) Fecal occult blood test positive: Code(s): R19.5 - Other fecal abnormalities Status: Acute (3) O2 dependent: Code(s): Z99.81 - Dependence on supplemental oxygen Status: Acute Plan 1. Anemia/heme positive stools: Patient with Hx PE, CHF, and O2 dependance. Patient had an EGD in November 2024 for FLEX and scope showed mild gastritis but was otherwise unremarkable. According to records patient was on Eliquis daily prior to admission for history of PE. Per patient she thinks had a colonoscopy > 1 year ago at [facility] but she could not confirm. Upon presentation to the emergency room patient was noted to have a hemoglobin at 6. Patient has received 2 units of PRBCs and labs today show HGB 9, HCT 30, platelets 268 and INR 1.4. BNP 2109. Patient denies any signs of active GI bleeding prior to or since admission. During today's visit she was having significant shortness of breath while talking despite being on 3 L per nasal cannula. DDX: Polyp versus AVM versus hemorrhoid versus chronic inflammatory condition versus neoplasm versus ischemic * Colonoscopy ordered for and will proceed if patient's respiratory status is more stable at that time * Primary care team to continue monitoring H&H and transfuse as needed to keep HGB > 7 * Okay for clear liquids today Thank you very much for allowing me to share in the care of this very nice patient. This report may have been done utilizing a voice recognition system. Attempts have been made to correct errors. However, there may be uncorrected grammatical, spelling, and recognition errors present. GI Consult Note Consult date/time: 01/12/25 09:11 Reason for consult: Anemia and heme positive stools HPI: Inez Delgado is a 69 year old female with past medical surgical history of pulmonic regurgitation, diastolic dysfunction, COPD, HTN, history of gastric ulcer, depression, migraines, anxiety, history of cardiac catheterization (EF 55%), emphysema with oxygen-dependence and . She presented to the emergency room today after a syncopal episode. Patient was admitted for anemia and heme-positive stools. GI consulted for anemia and heme-positive stools. Patient noted to have heme-positive stools in the emergency room. She is on omeprazole 40 mg daily prior to admission a reflux has been well controlled. She admits to a decreased appetite over the past few days. She is having regular bowel movements that she states are formed and non Urgent. Denies any abdominal pain, nausea, vomiting, bloating, odynophagia, dysphagia, regurgitation, early satiety, weight loss, diarrhea, constipation, hematochezia, or melena. According to documentation the patient was on Eliquis prior to admission. She denies any other NSAID or aspirin use. She is a nondrinker, nonsmoker and denies marijuana use. Family history negative for CRC or IBD. ENDOSCOPY HISTORY: EGD: 12/10/[address] Strickland for anemia Findings: Mild gastritis COLONOSCOPY: Patient states that she had a colonoscopy around 1 year ago at [facility] but she could not confirm place and time. LABS AND STOOL STUDIES: Labs 01/12/2025: Hgb 9, Hct 30, platelets 268 Labs 01/11/2025: Sodium 139, potassium 4.4, BUN 25, creatinine 0.68, GFR >60 WBC 7, Hgb 6, Hct 22, MCV 93, platelets 321, INR 1.4 Total bilirubin 0.3, AST 20, ALT 10, Alkaline Phos 66, albumin 3.3 Calcium 8.8, magnesium 2.1, lipase 37, procalcitonin 0.1, BNP 2110 IMAGING: CT abd/pelvis w/contrast 01/12/2025: IMPRESSION: Unchanged masslike opacities in the peripheral right mid and lower lung, may represent infection or neoplastic disease. Cystitis versus bladder wall thickening from incomplete distention. Otherwise, no acute abdominopelvic process detected. CT chest/abd/pelvis 12/09/2024: IMPRESSION: Panlobular emphysematous disease. Findings within the right mid to lower lung field for which a pleural-based mass is suspected. Small right-sided pleural effusion is also noted. No acute pathology within the abdomen or pelvis. Review of Systems 2 Constitutional: Constitutional: Reports as per HPI, Reports fatigue, Reports lethargy and Reports weakness ENT: Reports as per HPI Cardiovascular: Cardiovascular: Reports as per HPI, Denies chest pain and Reports dyspnea Respiratory: Respiratory: Denies cough, Reports dyspnea and Reports dyspnea on exertion Comments: on O2 3 liters at home Gastrointestinal: Gastrointestinal: Reports as per HPI Musculoskeletal: Musculoskeletal: Reports as per HPI Integumentary/Breasts: Skin/Breast: Reports as per HPI Psychiatric: Psychiatric: Reports as per HPI Endocrine: Endocrine: Reports no additional endocrine complaints Hematologic/Lymphatic: Hematologic/Lymphatic: Reports no additional hematologic/lymphatic complaints [facility] Past Medical History Medical History Moderate pulmonic regurgitation and right ventricular dilation by prior echocardiogram Moderate pulmonary hypertension Diastolic dysfunction grade 1 diastolic dysfunction on echo in December 2024 with an EF of 60 to 65% Non-small cell carcinoma of right lung, stage 4 (11/2024) arising in a pleural based mass in the right mid to lower lung with malignant effusion Chronic respiratory failure with hypoxia, on home oxygen therapy Chronic obstructive pulmonary disease Bleeding gastric ulcer Hypertension History of blood transfusion Seasonal allergies Tension headache Depression Cervicalgia Low back pain Migraines Anxiety Anemia Surgical History Surgical History History of cardiac catheterization (12/29/24) minimal irregularities with possible apical inferior hypokinesis and an EF 55% History of transcatheter aortic valve implantation (REYNA) (2022) via right neck History of laparoscopy History of esophagogastroduodenoscopy (EGD) History of (1980) Family History Family History Father Alcoholism Heart disease Hypertension Grandparent Carcinoma of colon Acute myocardial infarction Social History Social History Social History: Surrogate medical decision maker: Shara Martin, rosa Code status: Full code. Smoking packs per day: 1 Smoking cigarettes per day: 20.0 Years smoked: 50 Smoking pack-years: 50.00 Smoking status: Former smoker Tobacco type: cigarettes Smoking end date: 03/26/24 Alcohol intake: never Substance use: never Substance use type: does not use Do You Feel Safe in your Home?: Yes Lack of Transportation: No Lack of Food: Never True Current Housing: I Have Housing Concerned About Future Housing: No Difficulty Paying Gas/Electric Bills: No Difficulty Paying for Meds: No Currently Unemployed: No Education: Associate Degree Difficulty w/ Childcare or Family Care: No Living arrangements: with family Additional living arrangements comments: SISTER Spiritual care concerns: No Meds Home Medications and Allergies Home Medications ?Medication ?Instructions ?Recorded ?Confirmed ?Type cyclobenzaprine 10 mg tablet 5 - 10 mg (0.5 - 1 x 10 mg) PO TID 01/03/24 01/12/25 Rx PRN muscle spasm #90 tabs lisinopril 5 mg tablet 5 mg PO DAILY #30 tabs 01/03/24 01/12/25 Rx metoprolol tartrate 25 mg tablet 25 mg PO BID #60 tabs 01/03/24 01/12/25 Rx omeprazole 40 mg capsule,delayed 40 mg PO DAILY #30 caps 01/03/24 01/12/25 Rx release ferrous sulfate 137 mg (45 mg 137 mg PO DAILY 01/06/24 01/12/25 History iron) tablet,extended release (Slow Fe) alprazolam 0.5 mg tablet 0.5 mg PO TID PRN Anxiety #15 tabs 12/18/24 01/12/25 Rx lisinopril 5 mg tablet 5 mg PO QAM #90 tabs 12/18/24 01/12/25 Rx nebulizer and compressor #1 ea 12/18/24 01/12/25 Rx albuterol sulfate 90 mcg/actuation 1 - 2 inh inhalation Q4-6H PRN 12/21/24 01/12/25 Rx aerosol inhaler shortness of breath or wheezing #8.5 grams ipratropium 0.5 mg-albuterol 3 mg 3 ml inhalation Q6HRT PRN 12/21/24 01/12/25 History (2.5 mg base)/3 mL nebulization shortness of breath or wheezing soln apixaban 5 mg tablet (Eliquis) 5 mg PO BID #80 tabs 12/31/24 01/12/25 Rx hydrocodone 5 mg-acetaminophen 325 1 tablet PO Q6H PRN pain 01/12/25 01/12/25 History mg tablet Allergies Allergy/AdvReac Type Severity Reaction Status Date / Time iohexol (From contrast - CT, AdvReac FLUSHED, Verified 12/22/24 08:30 X-RAY) HOT FEELING Vital Signs Vital Signs - 24 hr 01/11/25 21:41 01/12/25 01:17 01/12/25 01:23 Temperature 97.4 F L 97.5 F L Pulse Rate 44 L 46 L 48 L Respiratory Rate 21 H 14 16 Blood Pressure 70/38 L 101/50 L 89/56 L Pulse Oximetry 89 L 96 96 Oxygen Delivery Room Air Oxygen Flow Rate 01/12/25 02:30 01/12/25 02:33 01/12/25 02:45 Temperature 98.4 F Pulse Rate 44 L Respiratory Rate 16 Blood Pressure 89/46 L 90/50 L Pulse Oximetry 92 99 Oxygen Delivery Nasal Cannula Oxygen Flow Rate 3 01/12/25 03:30 01/12/25 03:33 01/12/25 03:48 Temperature 98.2 F 98.2 F Pulse Rate 54 L 54 L 54 L Respiratory Rate 18 18 18 Blood Pressure 82/48 L 82/48 L Pulse Oximetry 92 92 92 Oxygen Delivery Nasal Cannula Oxygen Flow Rate 3 01/12/25 04:00 01/12/25 04:00 01/12/25 04:09 Temperature 97.8 F 98.7 F Pulse Rate 49 L 56 L 91 Respiratory Rate 16 18 Blood Pressure 99/69 L 114/46 L Pulse Oximetry 93 94 Oxygen Delivery Oxygen Flow Rate 01/12/25 04:34 01/12/25 04:54 01/12/25 05:54 Temperature 97.8 F 97.8 F 98.4 F Pulse Rate 56 L 55 L 56 L Respiratory Rate 16 16 16 Blood Pressure 99/69 L 105/53 L 119/67 Pulse Oximetry 93 93 94 Oxygen Delivery Oxygen Flow Rate 01/12/25 06:00 01/12/25 06:54 01/12/25 07:03 Temperature 98.4 F 98.4 F Pulse Rate 52 L 50 L 50 L Respiratory Rate 16 16 Blood Pressure 122/58 L 122/58 L Pulse Oximetry 100 100 Oxygen Delivery Oxygen Flow Rate 01/12/25 07:46 01/12/25 07:50 Temperature 98.6 F Pulse Rate 57 L Respiratory Rate 16 Blood Pressure 142/56 H Pulse Oximetry 99 99 Oxygen Delivery Nasal Cannula Oxygen Flow Rate 3 Exam 2 Const: General: cooperative, comfortable, no acute distress and well developed Orientation/consciousness: oriented to person, oriented to place, oriented to time and patient oriented x3 HENMT: Head: normal to inspection, normocephalic and atraumatic Mouth: Yes Normal oral and palatal mucosa present and Yes moist mucous membranes Eyes: General: appearance normal, both eyes and all related structures C onjunctivae: conjunctivae normal Sclera: sclerae normal Pupils: Equal, round and reactive pupils present Neck: Neck: normal visual inspection Chest: Chest palpation & inspection: normal inspection of the chest Resp: Auscultation: diminished lung sounds Other: SOB at rest and while speaking while on 3 liter O2 per nasal cannula Cardio: Jugular venous distension: no JVD Rate: regular rate Rhythm: r egular rhythm Heart sounds: S1 normal heart sound present and S2 normal heart sound present GI: Inspection: normal to inspection GI Palp: Yes Soft to palpation, No Tenderness to palpation present (GI), No Guarding due to palpation present (GI) and Yes No hepatosplenomegaly present Auscultation: normal bowel sounds R ectal Exam: deferred Skin: General skin exam: normal color and no rashes or lesions noted Neuro: General: oriented to person, oriented to place, oriented to time and patient oriented x3 Cranial nerves: Yes Equal, round and reactive pupils present Speech: normal speech Extrem: General: normal to inspection and no clubbing, cyanosis or edema Psych: Appearance: grossly normal and well kempt Affect: normal affect Results Labs 01/12/25 07:26 01/11/25 22:08 Labs: Short CBC 01/11/25 01/12/25 Range/Units 22:08 07:26 WBC 8.0 6.5 (4.5-10.0) K/mm3 Hgb 5.9 L* 8.7 L (12.0-15.0) g/dL Hct 22.3 L 30.1 L (37.0-47.0) % Plt Count 321 268 (150-375) k/mm3 BMP 01/11/25 22:08 Sodium 139 Potassium 4.4 Chloride 101 Carbon Dioxide 35 H BUN 25 H Creatinine 0.68 L Glucose 139 H Calcium 8.8 Cardiac Enzymes 01/11/25 01/12/25 01/12/25 Range/Units 22:08 01:44 07:26 Troponin I 0.037 H* 0.029 D 0.031 (0.000-0.034) ng/mL Liver Function 01/11/25 Range/Units 22:08 Total Bilirubin 0.3 (0.2-1.3) mg/dL AST 20 (14-36) U/L ALT 10 (6-35) U/L Alkaline Phosphatase 66 (38-126) U/L Albumin 3.3 L (3.5-5.1) g/dL Urine 01/12/25 Range/Units 00:16 Urine Color Yellow (Yellow) Urine Appearance Clear (Clear) Urine pH 6.0 (5.0-9.0) Ur Specific [place] 1.013 (1.001-1.035) Urine Protein Negative (Negative) mg/dL Urine Glucose (UA) Negative (Negative) mg/dL
[2025-01-12 14:09] LABS: Hematocrit 31.6 % (37.0-47.0); Hemoglobin 9.2 g/dL (12.0-15.0)
[2025-01-12] MEDS: IPRATROPIUM 0.5 MG/ALBUTEROL SULFATE 2.5 MG AMPUL.NEB 3 ML INHALATION (14:16)
[2025-01-12] MEDS: oxyCODONE HCL (*CRX) 5 MG TAB IR PO (14:33)
[2025-01-12] MEDS: ALPRAZolam (*CRX) 0.5 MG TABLET PO ×2 (14:34→20:07)
[2025-01-12 19:45] LABS: Hematocrit 30.6 % (37.0-47.0); Hemoglobin 8.9 g/dL (12.0-15.0)
[2025-01-13] VITALS (25 sets, daily range): BP systolic 135–188; BP diastolic 53–91; PULSE 61–87; RESP 16–24; TEMP 36.3–36.7; O2SAT 92–100
[2025-01-13] MEDS: oxyCODONE HCL (*CRX) 5 MG TAB IR PO ×3 (01:39→17:39)
[2025-01-13] MEDS: ALBUTEROL SULFATE (*SP) AEROSOL 1 PUFF 2 PUFF INHALATION (01:57)
--- NOTE | 2025-01-13 02:29 | PCRCNOTE ---
Patient woke short of breath due to back pain; RN increased nasal cannula to 3 L/min; PRN Albuterol x2 puffs given, adjusted position in bed, RN supplied pain med; SpO2: 96%, titrated nasal cannula to 2 L/min; patient states feeling better and presents better
[2025-01-13 05:13] LABS: Basophils Percent Auto 0.4 % (0.2-1.2); Eosinophils Absolute Auto 0.2 K/mm3 (0-0.3); Eosinophils Percent Auto 2.1 % (0-4.4); Hemoglobin 9.3 g/dL (12.0-15.0); Immature Granulocyte Absolute 0.02 K/mm3 (0.00-0.031); Immature Granulocyte Percent A 0.3 % (0-0.5); Lymphocytes Absolute Auto 0.76 K/mm3 (0.9-3.2); Lymphocytes Percent Auto 9.9 % (18.3-44.2); Mean Corpuscular HGB Conc 29.1 g/dl (32-36); Mean Corpuscular Hemoglobin 26.7 pg (26-34); Mean Platelet Volume 9.4 fl (7.4-10.4); Monocytes Absolute Auto 0.7 K/mm3 (0.1-0.6); Neutrophils Percent Auto 78.3 % (45.5-73.1); Platelet Count Result 296 k/mm3 (150-375); Red Blood Count 3.48 M/mm3 (4.2-5.4); Red Cell Distribution Width 17.4 % (11.5-14.5); White Blood Count 7.7 K/mm3 (4.5-10.0)
[2025-01-13 05:32] LABS: Alanine Aminotransferase 9 U/L (6-35); Albumin Level 3.3 g/dL (3.5-5.1); Alkaline Phosphatase 68 U/L (38-126); Anion Gap 5 mmol/L (4-12); Aspartate Amino Transferase 17 U/L (14-36); Bilirubin,Total 0.4 mg/dL (0.2-1.3); Blood Urea Nitrogen 16 mg/dL (7-17); Calcium 8.9 mg/dL (8.4-10.2); Carbon Dioxide 29 mmol/L (22-30); Chloride 106 mmol/L (98-107); Estimated CRCL calculation 90 ml/min; Estimated Glomerular Filt Rate > 60; Glucose 107 mg/dL (65-110); Magnesium 1.9 mg/dL (1.6-2.3); Potassium 3.6 mmol/L (3.4-5.0); Sodium 140 mmol/L (137-145)
[2025-01-13 05:47] LABS: Anisocytosis 1+; Band Neutrophils Percent 0 % (0-6); Ovalocytes 1+; Platelet Estimate Adequate (Adequate)
[2025-01-13 05:48] LABS: Schistocytes None Seen
[2025-01-13] MEDS: ALPRAZolam (*CRX) 0.5 MG TABLET PO ×3 (07:58→22:48)
[2025-01-13] MEDS: PANTOPRAZOLE SODIUM IV 40 MG VIAL IV PUSH ×2 (08:00→21:48)
[2025-01-13] MEDS: FERROUS SULFATE DRIED 142 MG TABCR PO (08:00)
[2025-01-13] MEDS: IPRATROPIUM 0.5 MG/ALBUTEROL SULFATE 2.5 MG AMPUL.NEB 3 ML INHALATION ×3 (08:19→23:39)
--- NOTE | 2025-01-13 08:46 | P.PNIM_ITS ---
Progress Note: A&P Assessment and Plan (1) Congestive heart failure: Qualifiers: Heart failure chronicity: chronic Heart failure type: diastolic Qualified Code(s): I50.32 - Chronic diastolic (congestive) heart failure Code(s): I50.9 - Heart failure, unspecified Status: Acute (2) Diastolic dysfunction: Code(s): I51.89 - Other ill-defined heart diseases Status: Acute (3) Hypertension: Code(s): I10 - Essential (primary) hypertension Status: Acute (4) Pulmonary embolism: Code(s): I26.99 - Other pulmonary embolism without acute cor pulmonale Status: Acute (5) Acute anemia: Code(s): D64.9 - Anemia, unspecified Status: Acute (6) Guaiac positive stools: Code(s): R19.5 - Other fecal abnormalities Status: Acute (7) Non-small cell carcinoma of right lung, stage 4: Onset Date: 11/2024 Code(s): C34.91 - Malignant neoplasm of unspecified part of right bronchus or lung Status: Acute (8) COPD (chronic obstructive pulmonary disease): Qualifiers: COPD type: unspecified COPD Qualified Code(s): J44.9 - Chronic obstructive pulmonary disease, unspecified Code(s): J44.9 - Chronic obstructive pulmonary disease, unspecified Status: Acute Plan Patient 69-year-old female who presents emergency department with chief complaint of syncopal episode. Patient has history of lung cancer and apparently has a new mass in her lung. The patient reports that she has not really been drinking over the last several days has been nauseated patient states that she got up to the bathroom had a syncopal episode patient was bradycardic and also hypotensive when EMS arrived. On ED arrival she was hypotensive with blood pressure of 70/38 pulse rate was 44 beats per minute oxygen saturation 89% on room air. Laboratory workup revealed hemoglobin of 5.9 FOBT was positive. Received IV fluid with improvement in blood pressure. CT scan of the head chest abdomen pelvis showed no acute abnormality. ABG 7.37/51/142/29. Patient was recently admitted earlier this month for concern for ST-elevation LA. cardiac catheterization showed no obstructive coronary artery disease. However was found to have pulmonary embolism with high probability V/Q scan and was started on anticoagulation. She was started on Eliquis PE on 01/01/2025. Lower extremity venous duplex was negative for DVT. Recent echocardiogram with EF 60-65% LV grade 1 diastolic dysfunction mild MR and TR moderate TR moderate pulmonary hypertension He was also recently diagnosed with stage IV non-small cell lung cancer arising in a pleural based mass in the right mid to lower lobe with pleural effusion. Which tested positive for adeno carcinoma Has underlying history of hypertension COPD aortic valve replacement chronic respiratory failure on home oxygen moderate pulmonary hypertension history of bleeding ulcers gastritis. Patient received 2 units of packed red blood cell transfusion. Hemoglobin post transfusion is up to 8.7. Hemoglobin at discharge was 8.6. She does have his tory of chronic normocytic anemia. Initial troponin was mildly elevated with subsequent levels normal. CT chest abdomen pelvis showed unchanged masslike opacities in the peripheral right mid and lower lung may represent infection or neoplastic disease. Cystitis versus bladder wall thickening from incomplete distension. Otherwise no acute abdominopelvic process detected. She also has Port-A-Cath placed on 12/22/2024 for treatment of adenocarcinoma of the lung. He also recently had EGD done which is negative for any acute findings other than gastritis. Colonoscopy was planned as an outpatient basis. She is admitted in this setting for further treatment. Acute on chronic blood-loss anemia, acute GI bleeding Acute severe anemia needing transfusion patient is stable now. GI bleed with FOBT positive stool EGD recently with mild gastritis. Hold off Eliquis, resume Eliquis when it is approved by GI Appreciate GI consultation Hemoglobin is stable is trending up Colonoscopy was planned on History of pulmonary embolism Recently diagnosed PE with high probability V/Q scan on anticoagulation Off Eliquis. However will need anticoagulation for recently diagnosed PE. 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 Planned chemotherapy treatment Recent pneumonia right lower lung CT chest with resolution Allergy to IV iodine contrast Moderate pulmonic regurgitation and right ventricular dilation by prior echocardiogram Moderate pulmonary hypertension grade 1 diastolic dysfunction on echo in December 2024 with an EF of 60 to 65% Chronic respiratory failure with hypoxia, on home oxygen therapy Chronic obstructive pulmonary disease History of Bleeding gastric ulcer Hypertension Seasonal allergies Tension headache Depression Cervicalgia Low back pain Migraines Anxiety Anemia DVT prophylaxis SCDs Code status full code Subjective Date/time seen: 01/13/25 08:46 Interval history: Patient afebrile, blood pressure stable, hemoglobin 9.3, stable No active bleeding Denies lightheadedness, chest pain shortness of breath nausea vomiting Exam Narrative: GENERAL: ill-appearing, and in no acute distress. HEAD: Normocephalic, atraumatic. EYES: PERRLA and EOMI. ENT: Nares clear, no rhinorrhea or epistaxis. Mucous membranes moist. NECK: Supple. CHEST: Diminished breath sounds bilaterally No respiratory distress. On 3 L nasal cannula HEART: Regular rate and rhythm. No murmur heard. Normal peripheral pulses. ABDOMEN: Soft, nontender, nondistended, normal active bowel sounds. EXTREMITIES: Normal range of motion. No edema. SKIN: Warm, dry, no rash. NEURO: No focal deficits. Alert and oriented x3. PSYCH: Normal mood and affect. Objective Data Vital Signs Vital Signs: Vital Signs - 24 hr 01/12/25 10:00 01/12/25 11:29 01/12/25 12:00 Temperature 97.5 F L Pulse Rate 60 57 L Respiratory Rate 20 Blood Pressure 122/93 H Pulse Oximetry 97 99 Oxygen Delivery Nasal Cannula Oxygen Flow Rate 3 01/12/25 12:00 01/12/25 14:00 01/12/25 14:17 Temperature Pulse Rate 54 L 58 L 61 Respiratory Rate 20 Blood Pressure Pulse Oximetry 94 Oxygen Delivery Nasal Cannula Oxygen Flow Rate 3 01/12/25 14:17 01/12/25 14:27 01/12/25 15:40 Temperature 97.6 F Pulse Rate 61 54 L 56 L Respiratory Rate 20 20 22 H Blood Pressure 131/62 Pulse Oximetry 97 Oxygen Delivery Oxygen Flow Rate 01/12/25 16:00 01/12/25 16:00 01/12/25 16:32 Temperature 97.8 F Pulse Rate 57 L 55 L Respiratory Rate 18 Blood Pressure 139/62 Pulse Oximetry 98 99 Oxygen Delivery Nasal Cannula Oxygen Flow Rate 3 01/12/25 16:33 01/12/25 18:00 01/12/25 20:00 Temperature Pulse Rate 60 Respiratory Rate Blood Pressure 146/61 H Pulse Oximetry 97 Oxygen Delivery Nasal Cannula Oxygen Flow Rate 3 01/12/25 20:00 01/12/25 20:00 01/12/25 22:00 Temperature 97.6 F Pulse Rate 60 58 L 55 L Respiratory Rate 18 Blood Pressure 137/57 L Pulse Oximetry 100 Oxygen Delivery Oxygen Flow Rate 01/12/25 22:45 01/13/25 00:00 01/13/25 00:00 Temperature Pulse Rate 62 64 Respiratory Rate Blood Pressure Pulse Oximetry 99 99 Oxygen Delivery Nasal Cannula Nasal Cannula Oxygen Flow Rate 2 3 01/13/25 00:00 01/13/25 01:55 01/13/25 01:57 Temperature 97.7 F Pulse Rate 61 78 Respiratory Rate 18 24 H Blood Pressure 135/74 Pulse Oximetry 99 96 Oxygen Delivery Nasal Cannula Oxygen Flow Rate 2 01/13/25 01:58 01/13/25 03:38 01/13/25 04:00 Temperature 97.7 F Pulse Rate 75 64 Respiratory Rate 24 H 18 Blood Pressure 144/53 H Pulse Oximetry 92 93 Oxygen Delivery Nasal Cannula Oxygen Flow Rate 2 01/13/25 04:00 01/13/25 06:00 01/13/25 08:00 Temperature Pulse Rate 61 77 Respiratory Rate Blood Pressure Pulse Oximetry 100 Oxygen Delivery Nasal Cannula Oxygen Flow Rate 2 01/13/25 08:00 01/13/25 08:21 01/13/25 08:21 Temperature Pulse Rate 77 79 Respiratory Rate 20 Blood Pressure Pulse Oximetry 100 Oxygen Delivery Nasal Cannula Oxygen Flow Rate 2 01/13/25 08:34 Temperature Pulse Rate 75 Respiratory Rate 20 Blood Pressure Pulse Oximetry Oxygen Delivery Oxygen Flow Rate Intake/Output Intake/Output: Intake & Output 01/10/25 01/11/25 01/12/25 01/13/25 23:59 23:59 23:59 23:59 Intake Total 970 300 Output Total 450 250 Balance 520 50 Meds/Results Medications: Active Medications Generic Name Dose Route Start Last Admin Trade Name Freq PRN Reason Stop Dose Admin Hydrocodone Bitart/Acetaminophen 1 tab 01/12/25 08:35 01/12/25 08:50 Hydrocodone/Acetaminophen (*Crx) 5-325 Mg Tablet PO 1 tab Q6H PRN Administration pain 4-6 Albuterol 2 puff 01/12/25 08:35 01/13/25 01:57 Albuterol Sulfate (*Sp) Aerosol 1 Puff INHALATION 2 puff Q4-6H PRN Administration shortness of breath or wheezing Albuterol/Ipratropium 3 ml 01/12/25 08:35 01/13/25 08:19 Ipratropium 0.5 Mg/Albuterol Sulfate 2.5 Mg Ampul.Neb 3 Ml INHALATION 3 ml Q6HRT PRN Administration shortness of breath or wheezing Alprazolam 0.5 mg 01/12/25 08:35 01/13/25 07:58 Alprazolam (*Crx) 0.5 Mg Tablet PO 0.5 mg TID PRN Administration Anxiety Cyclobenzaprine HCl 5 mg 01/12/25 08:35 Cyclobenzaprine Hcl 5 Mg Tablet PO TID PRN muscle spasm Ferrous Sulfate 142 mg 01/12/25 08:00 01/13/25 08:00 Ferrous Sulfate Dried 142 Mg Tabcr PO 142 mg DAILY@0800 MINGO Administration Ondansetron HCl 4 mg 01/12/25 14:17 Ondansetron Hcl Odt 4 Mg Tablet PO Q8H PRN nausea and vomiting Oxycodone HCl 5 mg 01/12/25 14:17 01/13/25 07:57 Oxycodone Hcl (*Crx) 5 Mg Tab Ir PO 5 mg Q6H PRN Administration pain 7-10 Pantoprazole Sodium 40 mg 01/12/25 21:00 01/13/25 08:00 Pantoprazole Sodium Iv 40 Mg Vial IV PUSH 40 mg Q12H MINGO Administration Radiology Results: ITS Impressions Chest/Abdomen/Pelvis CT 01/12/25 00:33 IMPRESSION: Unchanged masslike opacities in the peripheral right mid and lower lung, may represent infection or neoplastic disease. Cystitis versus bladder wall thickening from incomplete distention. Otherwise, no acute abdominopelvic process detected. Head CT 01/12/25 00:34 IMPRESSION: No acute intracranial process. Chest X-Ray 01/12/25 15:14 IMPRESSION: 1. Persistent patchy masslike opacities at the lateral right mid and lower lung zones which are suspicious for malignancy. 2. Blunting at the bilateral costophrenic angles suggesting small bilateral pleural effusions. 3. Increasing opacities at the lateral right lung base which could be due to pleural effusion, atelectasis or pneumonia. 4. Cardia megaly. Labs Labs: Laboratory Results - last 24 hr 01/12/25 01/12/25 01/13/25 14:02 19:31 03:47 WBC 7.7 RBC 3.48 L Hgb 9.2 L 8.9 L 9.3 L Hct 31.6 L 30.6 L 32.0 L MCV 92.0 MCH 26.7 MCHC 29.1 L RDW 17.4 H Plt Count 296 MPV 9.4 Immature Gran % (Auto) 0.3 Neut % (Auto) 78.3 H Lymph % (Auto) 9.9 L [place] % (Auto) 9.0 H Eos % (Auto) 2.1 Baso % (Auto) 0.4 Lymph # (Auto) 0.76 L [place] # (Auto) 0.7 H Eos # (Auto) 0.2 Baso # (Auto) 0.0 Abs Immat Gran (auto) 0.02 Absolute Neuts (auto) 6.0 Absolute Nucleated RBC 0.000 Band Neutrophils % 0 Nucleated RBC % 0.0 Platelet Estimate Adequate Anisocytosis 1+ Ovalocytes 1+ Schistocytes None seen Sodium 140 Potassium 3.6 Chloride 106 Carbon Dioxide 29 Anion Gap 5 BUN 16 Creatinine 0.41 L Estim Creat Clear Calc 90 Estimated GFR > 60 Glucose 107 Calcium 8.9 Magnesium 1.9 Total Bilirubin 0.4 AST 17 ALT 9 Alkaline Phosphatase 68 Total Protein 6.0 L Albumin 3.3 L
[2025-01-13] MEDS: HYDROcodone/acetaminophen (*CRX) 5-325 MG TABLET 1 TAB PO ×2 (12:12→21:48)
[2025-01-13] MEDS: BISACODYL 5 MG TABLET EC 20 MG PO (15:05)
[2025-01-13] MEDS: polyethylene glycoL 3350 238 GM BOTTLE PO ×2 (15:06→23:50)
--- NOTE | 2025-01-13 17:01 | PC.NURSE ---
This patient, Inez Delgado, was transferred to [facility] on 01/13/25 at 1658. Personal belongings sent with patient. Report given to Con[place]. Appropriate documentation sent with patient.
--- NOTE | 2025-01-13 18:03 | WPDGIPROGNO ---
Progress Note: A&P Assessment and Plan (1) GIB (gastrointestinal bleeding): Qualifiers: GI bleed type/associated pathology: melena Qualified Code(s): K92.1 - Melena Code(s): K92.2 - Gastrointestinal hemorrhage, unspecified Status: Acute Assessment and Plan: symptomatic anemia better with blood transfusion and near syncope recent egd will do colonoscopy tomorrow, blood thinner on hold (2) Fecal occult blood test positive: Code(s): R19.5 - Other fecal abnormalities Status: Acute (3) Pulmonary embolism: Code(s): I26.99 - Other pulmonary embolism without acute cor pulmonale Status: Acute (4) Blood thinned due to long-term anticoagulant use: Code(s): Z79.01 - residential (current) use of anticoagulants Status: Acute (5) Non-small cell lung cancer: Code(s): C34.90 - Malignant neoplasm of unspecified part of unspecified bronchus or lung Status: Acute Assessment and Plan: by primary, copd on home O2 (6) Acute anemia: Code(s): D64.9 - Anemia, unspecified Status: Acute Assessment and Plan: s/p transfusion colonoscopy tomorrow (7) Chronic respiratory failure with hypoxia, on home oxygen therapy: Code(s): J96.11 - Chronic respiratory failure with hypoxia; Z99.81 - Dependence on supplemental oxygen Status: Chronic (8) Near syncope: Code(s): R55 - Syncope and collapse Status: Acute Subjective Date/time seen: 01/13/25 18:03 Interval history: feeling better than admission, using oxygen (baseline) Review of Systems Review of Systems: All systems reviewed & are unremarkable except as noted in HPI and below Exam Narrative: GENERAL: ill-appearing, and in no acute distress. HEAD: Normocephalic, atraumatic. EYES: PERRLA and EOMI. ENT: Nares clear, no rhinorrhea or epistaxis. Mucous membranes moist. NECK: Supple. CHEST: Diminished breath sounds bilaterally No respiratory distress. On 3 L nasal cannula HEART: Regular rate and rhythm. No murmur heard. Normal peripheral pulses. ABDOMEN: Soft, nontender, nondistended, normal active bowel sounds. EXTREMITIES: Normal range of motion. No edema. SKIN: Warm, dry, no rash. NEURO: No focal deficits. Alert and oriented x3. PSYCH: Normal mood and affect. Objective Data Vital Signs Vital Signs: Vital Signs - 24 hr 01/12/25 20:00 01/12/25 20:00 01/12/25 20:00 Temperature 97.6 F Pulse Rate 60 58 L Respiratory Rate 18 Blood Pressure 137/57 L Pulse Oximetry 97 100 Oxygen Delivery Nasal Cannula Oxygen Flow Rate 3 01/12/25 22:00 01/12/25 22:45 01/13/25 00:00 Temperature Pulse Rate 55 L 62 Respiratory Rate Blood Pressure Pulse Oximetry 99 99 Oxygen Delivery Nasal Cannula Nasal Cannula Oxygen Flow Rate 2 3 01/13/25 00:00 01/13/25 00:00 01/13/25 01:55 Temperature 97.7 F Pulse Rate 64 61 78 Respiratory Rate 18 24 H Blood Pressure 135/74 Pulse Oximetry 99 Oxygen Delivery Oxygen Flow Rate 01/13/25 01:57 01/13/25 01:58 01/13/25 03:38 Temperature Pulse Rate 75 Respiratory Rate 24 H Blood Pressure Pulse Oximetry 96 92 Oxygen Delivery Nasal Cannula Nasal Cannula Oxygen Flow Rate 2 2 01/13/25 04:00 01/13/25 04:00 01/13/25 06:00 Temperature 97.7 F Pulse Rate 64 61 77 Respiratory Rate 18 Blood Pressure 144/53 H Pulse Oximetry 93 Oxygen Delivery Oxygen Flow Rate 01/13/25 08:00 01/13/25 08:00 01/13/25 08:00 Temperature 97.4 F L Pulse Rate 77 74 Respiratory Rate 20 Blood Pressure 160/80 H Pulse Oximetry 100 98 Oxygen Delivery Nasal Cannula Oxygen Flow Rate 2 01/13/25 08:21 01/13/25 08:21 01/13/25 08:34 Temperature Pulse Rate 79 75 Respiratory Rate 20 20 Blood Pressure Pulse Oximetry 100 Oxygen Delivery Nasal Cannula Oxygen Flow Rate 2 01/13/25 10:00 01/13/25 12:00 01/13/25 15:24 Temperature 97.7 F Pulse Rate 70 77 77 Respiratory Rate 18 20 Blood Pressure 149/60 H Pulse Oximetry 97 Oxygen Delivery Oxygen Flow Rate 01/13/25 15:32 01/13/25 16:00 01/13/25 16:00 Temperature 97.5 F L Pulse Rate 79 78 Respiratory Rate 20 20 Blood Pressure 180/66 H 180/66 H Pulse Oximetry 97 Oxygen Delivery Oxygen Flow Rate 01/13/25 16:05 01/13/25 16:40 01/13/25 17:20 Temperature 98.1 F Pulse Rate 75 Respiratory Rate 18 Blood Pressure 187/91 H 158/84 H 173/73 H Pulse Oximetry 94 Oxygen Delivery Oxygen Flow Rate Intake/Output Intake/Output: Intake & Output 01/10/25 01/11/25 01/12/25 01/13/25 23:59 23:59 23:59 23:59 Intake Total 970 520 Output Total 450 250 Balance 520 270 Meds/Results Medications: Active Medications Generic Name Dose Route Start Last Admin Trade Name Freq PRN Reason Stop Dose Admin Hydrocodone Bitart/Acetaminophen 1 tab 01/12/25 08:35 01/13/25 12:12 Hydrocodone/Acetaminophen (*Crx) 5-325 Mg Tablet PO 1 tab Q6H PRN Administration pain 4-6 Albuterol 2 puff 01/12/25 08:35 01/13/25 01:57 Albuterol Sulfate (*Sp) Aerosol 1 Puff INHALATION 2 puff Q4-6H PRN Administration shortness of breath or wheezing Albuterol/Ipratropium 3 ml 01/12/25 08:35 01/13/25 15:23 Ipratropium 0.5 Mg/Albuterol Sulfate 2.5 Mg Ampul.Neb 3 Ml INHALATION 3 ml Q6HRT PRN Administration shortness of breath or wheezing Alprazolam 0.5 mg 01/12/25 08:35 01/13/25 12:12 Alprazolam (*Crx) 0.5 Mg Tablet PO 0.5 mg TID PRN Administration Anxiety Cyclobenzaprine HCl 5 mg 01/12/25 08:35 Cyclobenzaprine Hcl 5 Mg Tablet PO TID PRN muscle spasm Ferrous Sulfate 142 mg 01/12/25 08:00 01/13/25 08:00 Ferrous Sulfate Dried 142 Mg Tabcr PO 142 mg DAILY@0800 MINGO Administration Magnesium Citrate 300 ml 01/13/25 23:00 Magnesium Citrate 300 Ml Btl PO 01/13/25 23:01 ONCE ONE Ondansetron HCl 4 mg 01/12/25 14:17 Ondansetron Hcl Odt 4 Mg Tablet PO Q8H PRN nausea and vomiting Oxycodone HCl 5 mg 01/12/25 14:17 01/13/25 17:39 Oxycodone Hcl (*Crx) 5 Mg Tab Ir PO 5 mg Q6H PRN Administration pain 7-10 Pantoprazole Sodium 40 mg 01/12/25 21:00 01/13/25 08:00 Pantoprazole Sodium Iv 40 Mg Vial IV PUSH 40 mg Q12H MINGO Administration Radiology Results: ITS Impressions Chest/Abdomen/Pelvis CT 01/12/25 00:33 IMPRESSION: Unchanged masslike opacities in the peripheral right mid and lower lung, may represent infection or neoplastic disease. Cystitis versus bladder wall thickening from incomplete distention. Otherwise, no acute abdominopelvic process detected. Head CT 01/12/25 00:34 IMPRESSION: No acute intracranial process. Chest X-Ray 01/12/25 15:14 IMPRESSION: 1. Persistent patchy masslike opacities at the lateral right mid and lower lung zones which are suspicious for malignancy. 2. Blunting at the bilateral costophrenic angles suggesting small bilateral pleural effusions. 3. Increasing opacities at the lateral right lung base which could be due to pleural effusion, atelectasis or pneumonia. 4. Cardia megaly. Labs Labs: Laboratory Results - last 24 hr 01/12/25 01/13/25 19:31 03:47 WBC 7.7 RBC 3.48 L Hgb 8.9 L 9.3 L Hct 30.6 L 32.0 L MCV 92.0 MCH 26.7 MCHC 29.1 L RDW 17.4 H Plt Count 296 MPV 9.4 Immature Gran % (Auto) 0.3 Neut % (Auto) 78.3 H Lymph % (Auto) 9.9 L [place] % (Auto) 9.0 H Eos % (Auto) 2.1 Baso % (Auto) 0.4 Lymph # (Auto) 0.76 L [place] # (Auto) 0.7 H Eos # (Auto) 0.2 Baso # (Auto) 0.0 Abs Immat Gran (auto) 0.02 Absolute Neuts (auto) 6.0 Absolute Nucleated RBC 0.000 Band Neutrophils % 0 Nucleated RBC % 0.0 Platelet Estimate Adequate Anisocytosis 1+ Ovalocytes 1+ Schistocytes None seen Sodium 140 Potassium 3.6 Chloride 106 Carbon Dioxide 29 Anion Gap 5 BUN 16 Creatinine 0.41 L Estim Creat Clear Calc 90 Estimated GFR > 60 Glucose 107 Calcium 8.9 Magnesium 1.9 Total Bilirubin 0.4 AST 17 ALT 9 Alkaline Phosphatase 68 Total Protein 6.0 L Albumin 3.3 L
--- NOTE | 2025-01-13 20:06 | PC.NURSE ---
Addendum entered by Joseph Louise RN 01/13/25 23:10: Pt now wishes to proceed w/ colonoscopy. Dr Savage notified and order received to begin bowel prep w/ new order for miralax. Original Note: Unable to find miralax after assuming care of patient. Scanned admin by IMU RN earlier in the day, however only a small amount of gatorade was used and the two full bottles are unopened at the bedside. When questioning patient about how much was taken, patient was unsure but decided now that she does not want to have colonoscopy. Pt AOx3 at this time and aware of current labs while discussing situation with patient, pt education on potential adverse health effects reinforced, pt is adamant that she does not want procedure at this time. Dr Savage notified of pt refusal at this time.
[2025-01-13] MEDS: METOPROLOL TARTRATE 25 MG TABLET PO (22:48)
[2025-01-13] MEDS: lisinopriL 5 MG TABLET PO (22:48)
[2025-01-14] VITALS (15 sets, daily range): BP systolic 71–178; BP diastolic 41–89; PULSE 60–79; RESP 16–26; TEMP 36.2–36.9; O2SAT 96–100
[2025-01-14] MEDS: MAGNESIUM CITRATE 300 ML BTL PO (03:50)
[2025-01-14] MEDS: oxyCODONE HCL (*CRX) 5 MG TAB IR PO (06:54)
--- NOTE | 2025-01-14 08:23 | PC.NURSE ---
Report called to [facility].
[2025-01-14] MEDS: PANTOPRAZOLE SODIUM IV 40 MG VIAL IV PUSH (08:27)
[2025-01-14] MEDS: METOPROLOL TARTRATE 25 MG TABLET PO ×2 (08:27→20:47)
[2025-01-14] MEDS: lisinopriL 5 MG TABLET PO (08:28)
[2025-01-14] MEDS: CYCLOBENZAPRINE HCL 5 MG TABLET PO (08:39)
--- NOTE | 2025-01-14 09:03 | PM.IMPN ---
Progress Note: A&P Assessment and Plan (1) Congestive heart failure: Qualifiers: Heart failure chronicity: chronic Heart failure type: diastolic Qualified Code(s): I50.32 - Chronic diastolic (congestive) heart failure Code(s): I50.9 - Heart failure, unspecified Status: Acute (2) Diastolic dysfunction: Code(s): I51.89 - Other ill-defined heart diseases Status: Acute (3) Hypertension: Code(s): I10 - Essential (primary) hypertension Status: Acute (4) Pulmonary embolism: Code(s): I26.99 - Other pulmonary embolism without acute cor pulmonale Status: Acute (5) Acute anemia: Code(s): D64.9 - Anemia, unspecified Status: Acute (6) Guaiac positive stools: Code(s): R19.5 - Other fecal abnormalities Status: Acute (7) Non-small cell carcinoma of right lung, stage 4: Onset Date: 11/2024 Code(s): C34.91 - Malignant neoplasm of unspecified part of right bronchus or lung Status: Acute (8) COPD (chronic obstructive pulmonary disease): Qualifiers: COPD type: unspecified COPD Qualified Code(s): J44.9 - Chronic obstructive pulmonary disease, unspecified Code(s): J44.9 - Chronic obstructive pulmonary disease, unspecified Status: Acute Plan Patient 69-year-old female who presents emergency department with chief complaint of syncopal episode. Patient has history of lung cancer and apparently has a new mass in her lung. The patient reports that she has not really been drinking over the last several days has been nauseated patient states that she got up to the bathroom had a syncopal episode patient was bradycardic and also hypotensive when EMS arrived. On ED arrival she was hypotensive with blood pressure of 70/38 pulse rate was 44 beats per minute oxygen saturation 89% on room air. Laboratory workup revealed hemoglobin of 5.9 FOBT was positive. Received IV fluid with improvement in blood pressure. CT scan of the head chest abdomen pelvis showed no acute abnormality. ABG 7.37/51/142/29. Patient was recently admitted earlier this month for concern for ST-elevation CT. cardiac catheterization showed no obstructive coronary artery disease. However was found to have pulmonary embolism with high probability V/Q scan and was started on anticoagulation. She was started on Eliquis PE on 01/01/2025. Lower extremity venous duplex was negative for DVT. Recent echocardiogram with EF 60-65% LV grade 1 diastolic dysfunction mild MR and TR moderate TR moderate pulmonary hypertension Acute on chronic blood-loss anemia, acute GI bleeding Acute severe anemia needing transfusion patient is stable now. GI bleed with FOBT positive stool EGD recently with mild gastritis. Hold off Eliquis, resume Eliquis when it is approved by GI Appreciate GI consultation Hemoglobin is stable is trending up Planned colonoscopy today History of pulmonary embolism Recently diagnosed PE with high probability V/Q scan on anticoagulation Off Eliquis. However will need anticoagulation for recently diagnosed PE. if contraindicate will consult surgeon for for inferior vena cava filter placement Follow-up GI recommendation Stage IV non-small cell lung cancer He was also recently diagnosed with stage IV non-small cell lung cancer arising in a pleural based mass in the right mid to lower lobe with pleural effusion. 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 She also has Port-A-Cath placed on 12/22/2024 for treatment of adenocarcinoma of the lung. Patient follows with Dr. Lozano Moderate pulmonic regurgitation and right ventricular dilation by prior echocardiogram Moderate pulmonary hypertension grade 1 diastolic dysfunction on echo in December 2024 with an EF of 60 to 65% Chronic respiratory failure with hypoxia, on home oxygen therapy Chronic obstructive pulmonary disease History of Bleeding gastric ulcer Hypertension Seasonal allergies Tension headache Depression Cervicalgia Low back pain Migraines Anxiety Anemia DVT prophylaxis SCDs Code status full code Subjective Date/time seen: 01/14/25 09:03 Interval history: Patient feels better today. Denies lightheadedness, chest pain shortness of breath nausea vomiting. Patient has a general weakness. Exam Narrative: GENERAL: ill-appearing, and in no acute distress. HEAD: Normocephalic, atraumatic. EYES: PERRLA and EOMI. ENT: Nares clear, no rhinorrhea or epistaxis. Mucous membranes moist. NECK: Supple. CHEST: Diminished breath sounds bilaterally No respiratory distress. On 3 L nasal cannula HEART: Regular rate and rhythm. No murmur heard. Normal peripheral pulses. ABDOMEN: Soft, nontender, nondistended, normal active bowel sounds. EXTREMITIES: Normal range of motion. No edema. SKIN: Warm, dry, no rash. NEURO: No focal deficits. Alert and oriented x3. PSYCH: Normal mood and affect. Objective Data Vital Signs Vital Signs: Vital Signs - 24 hr 01/13/25 10:00 01/13/25 12:00 01/13/25 15:24 Temperature 97.7 F Pulse Rate 70 77 77 Respiratory Rate 18 20 Blood Pressure 149/60 H Pulse Oximetry 97 Oxygen Delivery Oxygen Flow Rate 01/13/25 15:32 01/13/25 16:00 01/13/25 16:00 Temperature 97.5 F L Pulse Rate 79 78 Respiratory Rate 20 20 Blood Pressure 180/66 H 180/66 H Pulse Oximetry 97 Oxygen Delivery Oxygen Flow Rate 01/13/25 16:05 01/13/25 16:40 01/13/25 17:20 Temperature 98.1 F Pulse Rate 75 Respiratory Rate 18 Blood Pressure 187/91 H 158/84 H 173/73 H Pulse Oximetry 94 Oxygen Delivery Oxygen Flow Rate 01/13/25 20:00 01/13/25 20:03 01/13/25 20:47 Temperature 98.1 F Pulse Rate 87 Respiratory Rate 16 Blood Pressure 188/83 H Pulse Oximetry 98 96 97 Oxygen Delivery Nasal Cannula Nasal Cannula Oxygen Flow Rate 3 3 01/13/25 22:22 01/13/25 22:48 01/13/25 23:39 Temperature 97.6 F Pulse Rate 84 84 71 Respiratory Rate 18 20 Blood Pressure 183/68 H Pulse Oximetry 98 Oxygen Delivery Oxygen Flow Rate 01/13/25 23:56 01/14/25 04:27 01/14/25 08:00 Temperature 97.7 F 97.6 F Pulse Rate 70 60 69 Respiratory Rate 20 16 20 Blood Pressure 140/62 151/63 H Pulse Oximetry 100 99 Oxygen Delivery Oxygen Flow Rate 01/14/25 08:27 Temperature Pulse Rate 68 Respiratory Rate Blood Pressure Pulse Oximetry Oxygen Delivery Oxygen Flow Rate Intake/Output Intake/Output: Intake & Output 01/11/25 01/12/25 01/13/25 01/14/25 23:59 23:59 23:59 23:59 Intake Total 970 920 200 Output Total 450 950 650 Balance 520 -30 -450 Meds/Results Medications: Active Medications Generic Name Dose Route Start Last Admin Trade Name Freq PRN Reason Stop Dose Admin Hydrocodone Bitart/Acetaminophen 1 tab 01/12/25 08:35 01/13/25 21:48 Hydrocodone/Acetaminophen (*Crx) 5-325 Mg Tablet PO 1 tab Q6H PRN Administration pain 4-6 Albuterol 2 puff 01/12/25 08:35 01/13/25 01:57 Albuterol Sulfate (*Sp) Aerosol 1 Puff INHALATION 2 puff Q4-6H PRN Administration shortness of breath or wheezing Albuterol/Ipratropium 3 ml 01/12/25 08:35 01/13/25 23:39 Ipratropium 0.5 Mg/Albuterol Sulfate 2.5 Mg Ampul.Neb 3 Ml INHALATION 3 ml Q6HRT PRN Administration shortness of breath or wheezing Alprazolam 0.5 mg 01/12/25 08:35 01/13/25 22:48 Alprazolam (*Crx) 0.5 Mg Tablet PO 0.5 mg TID PRN Administration Anxiety Cyclobenzaprine HCl 5 mg 01/12/25 08:35 01/14/25 08:39 Cyclobenzaprine Hcl 5 Mg Tablet PO 5 mg TID PRN Administration muscle spasm Ferrous Sulfate 142 mg 01/12/25 08:00 01/14/25 08:26 Ferrous Sulfate Dried 142 Mg Tabcr PO Not Given DAILY@0800 MINGO Lisinopril 5 mg 01/13/25 22:20 01/14/25 08:28 Lisinopril 5 Mg Tablet PO 5 mg QAM MINGO Administration Metoprolol Tartrate 25 mg 01/13/25 22:20 01/14/25 08:27 Metoprolol Tartrate 25 Mg Tablet PO 25 mg Q12HR MINGO Administration Ondansetron HCl 4 mg 01/12/25 14:17 Ondansetron Hcl Odt 4 Mg Tablet PO Q8H PRN nausea and vomiting Oxycodone HCl 5 mg 01/12/25 14:17 01/14/25 06:54 Oxycodone Hcl (*Crx) 5 Mg Tab Ir PO 5 mg Q6H PRN Administration pain 7-10 Pantoprazole Sodium 40 mg 01/12/25 21:00 01/14/25 08:27 Pantoprazole Sodium Iv 40 Mg Vial IV PUSH 40 mg Q12H MINGO Administration Radiology Results: ITS Impressions Chest/Abdomen/Pelvis CT 01/12/25 00:33 IMPRESSION: Unchanged masslike opacities in the peripheral right mid and lower lung, may represent infection or neoplastic disease. Cystitis versus bladder wall thickening from incomplete distention. Otherwise, no acute abdominopelvic process detected. Head CT 01/12/25 00:34 IMPRESSION: No acute intracranial process. Chest X-Ray 01/12/25 15:14 IMPRESSION: 1. Persistent patchy masslike opacities at the lateral right mid and lower lung zones which are suspicious for malignancy. 2. Blunting at the bilateral costophrenic angles suggesting small bilateral pleural effusions. 3. Increasing opacities at the lateral right lung base which could be due to pleural effusion, atelectasis or pneumonia. 4. Cardia megaly.
[2025-01-14 11:17] LABS: Hematocrit 34.6 % (37.0-47.0); Hemoglobin 9.8 g/dL (12.0-15.0); Mean Corpuscular HGB Conc 28.3 g/dl (32-36); Mean Corpuscular Hemoglobin 26.1 pg (26-34); Mean Corpuscular Volume 92.3 fl (80-100); Mean Platelet Volume 9.5 fl (7.4-10.4); Platelet Count Result 290 k/mm3 (150-375); Red Blood Count 3.75 M/mm3 (4.2-5.4); Red Cell Distribution Width 16.9 % (11.5-14.5); White Blood Count 5.3 K/mm3 (4.5-10.0)
[2025-01-14 11:43] LABS: Anion Gap 5 mmol/L (4-12); Blood Urea Nitrogen 5 mg/dL (7-17); Calcium 9.1 mg/dL (8.4-10.2); Carbon Dioxide 29 mmol/L (22-30); Chloride 106 mmol/L (98-107); Estimated CRCL calculation 120 ml/min; Estimated Glomerular Filt Rate > 60; Glucose 110 mg/dL (65-110); Potassium 3.5 mmol/L (3.4-5.0); Sodium 140 mmol/L (137-145)
--- NOTE | 2025-01-14 12:50 | PC.NURSE ---
To GI Lab via [facility].
[2025-01-14] MEDS: LACTATED RINGERS 1,000 ML 150 ML IV CONT (12:59)
--- NOTE | 2025-01-14 13:07 | WPDANESEPPF ---
Anes - Initial Pre Proc Eval Procedure: Operation Date: 01/14/25 15:00 Proposed Procedures p Colonoscopy - Myron Savage MD Date/Time: 01/14/25 13:07 Surgeon: Shaila Tomas MD Pre Op Diagnosis: Syncope; Acute anemia Patient Data Age: 69 Gender: F Height: 1.6 m Weight: 67 kg Last Vital Signs Temp 97.7 F 01/14/25 12:57 Pulse 62 01/14/25 12:57 Resp 22 H 01/14/25 12:57 BP 178/68 H 01/14/25 12:57 Pulse Ox 97 01/14/25 12:57 O2 Del Method Nasal Cannula 01/14/25 12:57 O2 Flow Rate 3 01/14/25 12:57 Allergies Allergy/AdvReac Type Severity Reaction Status Date / Time iohexol (From contrast - CT, AdvReac FLUSHED, Verified 12/22/24 08:30 X-RAY) HOT FEELING Home Medications ?Medication ?Instructions ?Recorded ?Confirmed ?Type cyclobenzaprine 10 mg tablet 5 - 10 mg (0.5 - 1 x 10 mg) PO TID 01/03/24 01/12/25 Rx PRN muscle spasm #90 tabs lisinopril 5 mg tablet 5 mg PO DAILY #30 tabs 01/03/24 01/12/25 Rx metoprolol tartrate 25 mg tablet 25 mg PO BID #60 tabs 01/03/24 01/12/25 Rx omeprazole 40 mg capsule,delayed 40 mg PO DAILY #30 caps 01/03/24 01/12/25 Rx release ferrous sulfate 137 mg (45 mg 137 mg PO DAILY 01/06/24 01/12/25 History iron) tablet,extended release (Slow Fe) alprazolam 0.5 mg tablet 0.5 mg PO TID PRN Anxiety #15 tabs 12/18/24 01/12/25 Rx lisinopril 5 mg tablet 5 mg PO QAM #90 tabs 12/18/24 01/12/25 Rx nebulizer and compressor #1 ea 12/18/24 01/12/25 Rx albuterol sulfate 90 mcg/actuation 1 - 2 inh inhalation Q4-6H PRN 12/21/24 01/12/25 Rx aerosol inhaler shortness of breath or wheezing #8.5 grams ipratropium 0.5 mg-albuterol 3 mg 3 ml inhalation Q6HRT PRN 12/21/24 01/12/25 History (2.5 mg base)/3 mL nebulization shortness of breath or wheezing soln apixaban 5 mg tablet (Eliquis) 5 mg PO BID #80 tabs 12/31/24 01/12/25 Rx hydrocodone 5 mg-acetaminophen 325 1 tablet PO Q6H PRN pain 01/12/25 01/12/25 History mg tablet ondansetron 4 mg disintegrating 4 mg PO Q8H PRN nausea and vomiting 01/12/25 01/12/25 History tablet oxycodone 5 mg tablet 5 mg PO Q6H PRN pain 01/12/25 01/12/25 History Laboratory Tests 01/14/25 11:06 WBC 5.3 K/mm3 (4.5-10.0) RBC 3.75 L M/mm3 (4.2-5.4) Hgb 9.8 L g/dL (12.0-15.0) Hct 34.6 L % (37.0-47.0) MCV 92.3 fl (80-100) MCH 26.1 pg (26-34) MCHC 28.3 L g/dl (32-36) RDW 16.9 H % (11.5-14.5) Plt Count 290 k/mm3 (150-375) MPV 9.5 fl (7.4-10.4) Sodium 140 mmol/L (137-145) Potassium 3.5 mmol/L (3.4-5.0) Chloride 106 mmol/L (98-107) Carbon Dioxide 29 mmol/L (22-30) Anion Gap 5 mmol/L (4-12) BUN 5 L D mg/dL (7-17) Creatinine 0.29 L mg/dL (0.7-1.0) Estim Creat Clear Calc 120 ml/min Estimated GFR > 60 (59 - ) Glucose 110 mg/dL (65-110) Calcium 9.1 mg/dL (8.4-10.2) Patient hx anesthesia problems: none Family hx anesthesia problems: none Results Review: All pre-operative results and documents have been reviewed as part of the pre-operative evaluation. REPLACED BY [facility] Past Medical History Medical History (Updated 01/13/25 @ 18:04 by Myron Savage MD) Blood thinned due to long-term anticoagulant use Moderate pulmonic regurgitation and right ventricular dilation by prior echocardiogram Moderate pulmonary hypertension Diastolic dysfunction grade 1 diastolic dysfunction on echo in December 2024 with an EF of 60 to 65% Non-small cell carcinoma of right lung, stage 4 (11/2024) arising in a pleural based mass in the right mid to lower lung with malignant effusion Chronic respiratory failure with hypoxia, on home oxygen therapy Chronic obstructive pulmonary disease Bleeding gastric ulcer Hypertension History of blood transfusion Seasonal allergies Tension headache Depression Cervicalgia Low back pain Migraines Anxiety Anemia Surgical History Surgical History History of cardiac catheterization (12/29/24) minimal irregularities with possible apical inferior hypokinesis and an EF 55% History of transcatheter aortic valve implantation ([facility]) (2022) via right neck History of laparoscopy History of esophagogastroduodenoscopy (EGD) History of (1980) Family History Family History Father Alcoholism Heart disease Hypertension Grandparent Carcinoma of colon Acute myocardial infarction Social History Social History Social History: Surrogate medical decision maker: Shara Martin rosa Code status: Full code. Smoking packs per day: 1 Smoking cigarettes per day: 20.0 Years smoked: 50 Smoking pack-years: 50.00 Smoking status: Former smoker Tobacco type: cigarettes Smoking end date: 03/26/24 Alcohol intake: never Substance use: never Substance use type: does not use Do You Feel Safe in your Home?: Yes Lack of Transportation: No Lack of Food: Never True Current Housing: I Have Housing Concerned About Future Housing: No Difficulty Paying Gas/Electric Bills: No Difficulty Paying for Meds: No Currently Unemployed: No Education: Associate Degree Difficulty w/ Childcare or Family Care: No Living arrangements: with family Additional living arrangements comments: SISTER Spiritual care concerns: No Anes - Eval Final PreProcedure Day of Procedure 01/14/25 13:07 Patient weight: normal Heart: regular rate and rhythm Lungs: clear to auscultation Airway: Mallampati scale class II Neurological: alert and oriented Last oral intake: >/= 8 hours ASA classification: IV Emergent: no Anesthetic plan: proceed Anesthesia type and monitoring: general GIVS and standard monitoring Results Review: All pre-operative results and documents have been reviewed as part of the pre-operative evaluation. Informed Consent: The patient's anesthetic plan and its attendant risks and benefits were discussed with the patient/family/POA. Questions were solicited and answers provided to the satisfaction of the patient/family/POA.
--- NOTE | 2025-01-14 14:01 | SUR.PHASEII ---
Pt c/o shortness of breath needing a breathing tx, respiratory notified to come to GI and give tx
[2025-01-14] MEDS: IPRATROPIUM 0.5 MG/ALBUTEROL SULFATE 2.5 MG AMPUL.NEB 3 ML INHALATION (14:10)
--- NOTE | 2025-01-14 14:22 | SUR.PHASEII ---
breathing tx completed
--- NOTE | 2025-01-14 14:25 | PC.NURSE ---
Returned ling GI Lab via stretcher.
[2025-01-14] MEDS: HYDROcodone/acetaminophen (*CRX) 5-325 MG TABLET 1 TAB PO (14:51)
[2025-01-14] MEDS: ALPRAZolam (*CRX) 0.5 MG TABLET PO ×2 (14:51→20:47)
[2025-01-15] VITALS (7 sets, daily range): BP systolic 143–155; BP diastolic 53–76; PULSE 68–100; RESP 18–20; TEMP 36.4–36.8; O2SAT 94–99
[2025-01-15] MEDS: lisinopriL 5 MG TABLET PO (08:30)
[2025-01-15] MEDS: METOPROLOL TARTRATE 25 MG TABLET PO ×2 (08:30→20:32)
[2025-01-15] MEDS: PANTOPRAZOLE 40 MG TABLET PO (08:31)
[2025-01-15] MEDS: FERROUS SULFATE DRIED 142 MG TABCR PO (08:31)
[2025-01-15] MEDS: ALPRAZolam (*CRX) 0.5 MG TABLET PO ×4 (08:33→20:33)
[2025-01-15] MEDS: CYCLOBENZAPRINE HCL 5 MG TABLET PO ×3 (08:33→16:34)
[2025-01-15] MEDS: oxyCODONE HCL (*CRX) 5 MG TAB IR PO ×3 (08:33→23:22)
--- NOTE | 2025-01-15 11:45 | P.PNIM_ITS ---
Progress Note: A&P Assessment and Plan (1) Congestive heart failure: Qualifiers: Heart failure type: diastolic Heart failure chronicity: chronic Qualified Code(s): I50.32 - Chronic diastolic (congestive) heart failure Code(s): I50.9 - Heart failure, unspecified Status: Acute Assessment and Plan: Is getting better. Continue current treatment monitor closely. (2) Diastolic dysfunction: Code(s): I51.89 - Other ill-defined heart diseases Status: Acute Assessment and Plan: Stable on current medications. Will continue current treatment. (3) Hypertension: Code(s): I10 - Essential (primary) hypertension Status: Acute Assessment and Plan: Stable on current medications. Will continue current treatment. (4) Pulmonary embolism: Code(s): I26.99 - Other pulmonary embolism without acute cor pulmonale Status: Acute Assessment and Plan: Stable on current medications. Will continue current treatment. (5) Acute anemia: Code(s): D64.9 - Anemia, unspecified Status: Acute Assessment and Plan: Colon Exam negative. Hemoglobin stable. (6) Guaiac positive stools: Code(s): R19.5 - Other fecal abnormalities Status: Acute Assessment and Plan: GI following (7) Non-small cell carcinoma of right lung, stage 4: Onset Date: 11/2024 Code(s): C34.91 - Malignant neoplasm of unspecified part of right bronchus or lung Status: Acute Assessment and Plan: Stable (8) COPD (chronic obstructive pulmonary disease): Qualifiers: COPD type: unspecified COPD Qualified Code(s): J44.9 - Chronic obstructive pulmonary disease, unspecified Code(s): J44.9 - Chronic obstructive pulmonary disease, unspecified Status: Acute Assessment and Plan: Stable on current meds Plan Patient 69-year-old female who presents emergency department with chief complaint of syncopal episode. Patient has history of lung cancer and apparently has a new mass in her lung. The patient reports that she has not really been drinking over the last several days has been nauseated patient states that she got up to the bathroom had a syncopal episode patient was bradycardic and also hypotensive when EMS arrived. On ED arrival she was hypotensive with blood pressure of 70/38 pulse rate was 44 beats per minute oxygen saturation 89% on room air. Laboratory workup revealed hemoglobin of 5.9 FOBT was positive. Received IV fluid with improvement in blood pressure. CT scan of the head chest abdomen pelvis showed no acute abnormality. ABG 7.37 /51/142/29. Patient was recently admitted earlier this month for concern for ST-elevation [place]. cardiac catheterization showed no obstructive coronary artery disease. However was found to have pulmonary embolism with high probability V/Q scan and was started on anticoagulation. She was started on Eliquis PE on 01/01/2025. Lower extremity venous duplex was negative for DVT. Recent echocardiogram with EF 60-65% LV grade 1 diastolic dysfunction mild MR and TR moderate TR moderate pulmonary hypertension Acute on chronic blood-loss anemia, acute GI bleeding Acute severe anemia needing transfusion patient is stable now. GI bleed with FOBT positive stool EGD recently with mild gastritis. Hold off Eliquis, resume Eliquis when it is approved by GI Appreciate GI consultation Hemoglobin is stable is trending up Planned colonoscopy today History of pulmonary embolism Recently diagnosed PE with high probability V/Q scan on anticoagulation Off Eliquis. However will need anticoagulation for recently diagnosed PE. if contraindicate will consult surgeon for for inferior vena cava filter placement Follow-up GI recommendation Stage IV non-small cell lung cancer He was also recently diagnosed with stage IV non-small cell lung cancer arising in a pleural based mass in the right mid to lower lobe with pleural effusion. 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 She also has Port-A-Cath placed on 12/22/2024 for treatment of adenocarcinoma of the lung. Patient follows with Dr. Lozano Moderate pulmonic regurgitation and right ventricular dilation by prior echocardiogram Moderate pulmonary hypertension grade 1 diastolic dysfunction on echo in December 2024 with an EF of 60 to 65% Chronic respiratory failure with hypoxia, on home oxygen therapy Chronic obstructive pulmonary disease History of Bleeding gastric ulcer Hypertension Seasonal allergies Tension headache Depression Cervicalgia Low back pain Migraines Anxiety Anemia DVT prophylaxis SCDs Code status full code Subjective Date/time seen: 01/15/25 11:45 Interval history: Patient was seen during the morning rounds today. Patient feels slightly better today. No shortness of breath or chest pain. Review of Systems Review of Systems: - CONSTITUTIONAL: Denies weight loss, fe martín and chills. - HEENT: Denies changes in vision and he aring - RESPIRATORY: Reports SOB and denies c ough. - CV: Denies palpitations and CP. - GI: Denies abdominal pain, nausea, vom iting and diarrhea. - : Denies dysuria and urinary frequen cy. - MSK: Denies myalgia and joint pain. - SKIN: Denies rash and pruritus. - NEUROLOGICAL: Denies headache and repo rts syncope. - PSYCHIATRIC: Denies recent changes in mood. Denies anxiety and depression. Exam Narrative: GENERAL: ill-appearing, and in no acute distress. HEAD: Normocephalic, atraumatic. EYES: PERRLA and EOMI. ENT: Nares clear, no rhinorrhea or epistaxis. Mucous membranes moist. NECK: Supple. CHEST: Diminished breath sounds bilaterally No respiratory distress. On 3 L nasal cannula HEART: Regular rate and rhythm. No murmur heard. Normal peripheral pulses. ABDOMEN: Soft, nontender, nondistended, normal active bowel sounds. EXTREMITIES: Normal range of motion. No edema. SKIN: Warm, dry, no rash. NEURO: No focal deficits. Alert and oriented x3. PSYCH: Normal mood and affect. Objective Data Vital Signs Vital Signs: Vital Signs - 24 hr 01/14/25 12:57 01/14/25 13:33 01/14/25 13:43 Temperature 36.5 C Pulse Rate 62 66 69 Respiratory Rate 22 H 26 H 24 H Blood Pressure 178/68 H 98/44 L 114/41 L Pulse Oximetry 97 99 96 Oxygen Delivery Nasal Cannula Nasal Cannula Nasal Cannula Oxygen Flow Rate 3 3 3 01/14/25 13:53 01/14/25 14:10 01/14/25 14:20 Temperature Pulse Rate 70 72 76 Respiratory Rate 21 H 24 H 20 Blood Pressure 155/53 H Pulse Oximetry 96 Oxygen Delivery Nasal Cannula Oxygen Flow Rate 3 01/14/25 14:30 01/14/25 16:00 01/14/25 20:00 Temperature 36.8 C 36.2 C L Pulse Rate 72 63 Respiratory Rate 18 18 Blood Pressure 71/68 L 155/89 H Pulse Oximetry 99 98 98 Oxygen Delivery Nasal Cannula Oxygen Flow Rate 3 01/14/25 20:47 01/14/25 21:31 01/15/25 08:00 Temperature 36.9 C 36.8 C Pulse Rate 79 79 73 Respiratory Rate 16 20 Blood Pressure 133/59 L 152/76 H Pulse Oximetry 99 97 Oxygen Delivery Oxygen Flow Rate 01/15/25 08:00 01/15/25 08:30 01/15/25 09:29 Temperature Pulse Rate 98 100 Respiratory Rate 20 Blood Pressure Pulse Oximetry 99 99 Oxygen Delivery Nasal Cannula Nasal Cannula Oxygen Flow Rate 3 3 Intake/Output Intake/Output: Intake & Output 01/12/25 01/13/25 01/14/25 01/15/25 23:59 23:59 23:59 23:59 Intake Total 970 920 640 420 Output Total 446 974 5437 450 Balance -30 Meds/Results Medications: Active Medications Generic Name Dose Route Start Last Admin Trade Name Freq PRN Reason Stop Dose Admin Hydrocodone Bitart/Acetaminophen 1 tab 01/12/25 08:35 01/14/25 14:51 Hydrocodone/Acetaminophen (*Crx) 5-325 Mg Tablet PO 1 tab Q6H PRN Administration pain 4-6 Albuterol 2 puff 01/12/25 08:35 01/13/25 01:57 Albuterol Sulfate (*Sp) Aerosol 1 Puff INHALATION 2 puff Q4-6H PRN Administration shortness of breath or wheezing Albuterol/Ipratropium 3 ml 01/12/25 08:35 01/14/25 14:10 Ipratropium 0.5 Mg/Albuterol Sulfate 2.5 Mg Ampul.Neb 3 Ml INHALATION 3 ml Q6HRT PRN Administration shortness of breath or wheezing Alprazolam 0.5 mg 01/12/25 08:35 01/15/25 08:33 Alprazolam (*Crx) 0.5 Mg Tablet PO 0.5 mg TID PRN Administration Anxiety Cyclobenzaprine HCl 5 mg 01/12/25 08:35 01/15/25 08:33 Cyclobenzaprine Hcl 5 Mg Tablet PO 5 mg TID PRN Administration muscle spasm Ferrous Sulfate 142 mg 01/12/25 08:00 01/15/25 08:31 Ferrous Sulfate Dried 142 Mg Tabcr PO 142 mg DAILY@0800 MINGO Administration Lisinopril 5 mg 01/13/25 22:20 01/15/25 08:30 Lisinopril 5 Mg Tablet PO 5 mg QAM MINGO Administration Metoprolol Tartrate 25 mg 01/13/25 22:20 01/15/25 08:30 Metoprolol Tartrate 25 Mg Tablet PO 25 mg Q12HR MINGO Administration Ondansetron HCl 4 mg 01/12/25 14:17 Ondansetron Hcl Odt 4 Mg Tablet PO Q8H PRN nausea and vomiting Oxycodone HCl 5 mg 01/12/25 14:17 01/15/25 08:33 Oxycodone Hcl (*Crx) 5 Mg Tab Ir PO 5 mg Q6H PRN Administration pain 7-10 Pantoprazole Sodium 40 mg 01/15/25 09:00 01/15/25 08:31 Pantoprazole 40 Mg Tablet PO 40 mg QAM MINGO Administration Radiology Results: ITS Impressions Chest/Abdomen/Pelvis CT 01/12/25 00:33 IMPRESSION: Unchanged masslike opacities in the peripheral right mid and lower lung, may represent infection or neoplastic disease. Cystitis versus bladder wall thickening from incomplete distention. Otherwise, no acute abdominopelvic process detected. Head CT 01/12/25 00:34 IMPRESSION: No acute intracranial process. Chest X-Ray 01/12/25 15:14 IMPRESSION: 1. Persistent patchy masslike opacities at the lateral right mid and lower lung zones which are suspicious for malignancy. 2. Blunting at the bilateral costophrenic angles suggesting small bilateral pleural effusions. 3. Increasing opacities at the lateral right lung base which could be due to pleural effusion, atelectasis or pneumonia. 4. Cardia megaly.
[2025-01-15] MEDS: HYDROcodone/acetaminophen (*CRX) 5-325 MG TABLET 1 TAB PO (12:33)
--- NOTE | 2025-01-15 14:12 | WPDANESPN ---
Anes - Prog Note Post-Op Date/Time: 01/15/25 14:12 Cardiovascular status: normal Respiratory status: normal Airway patency: baseline Mental status: baseline Post-Op hydration status: normal Vital Signs: Last Vital Signs Temp 36.8 C 01/15/25 08:00 Pulse 100 01/15/25 08:30 Resp 20 01/15/25 08:00 BP 152/76 H 01/15/25 08:00 Pulse Ox 99 01/15/25 09:29 O2 Del Method Nasal Cannula 01/15/25 09:29 O2 Flow Rate 3 01/15/25 09:29 Pain Score (VAS): 1 I/O: Intake & Output 01/14/25 01/15/25 01/15/25 23:59 07:59 15:59 Intake Total 340 200 400 Output Total 700 450 Balance -360 -250 400 Laboratory Tests 01/14/25 11:06 01/14/25 11:06 Post-procedural complaints: none Patient Feedback: Patient satisfied with anesthetic care.
[2025-01-15] MEDS: ONDANSETRON HCL ODT 4 MG TABLET PO (15:24)
[2025-01-16] VITALS (10 sets, daily range): BP systolic 133–165; BP diastolic 50–62; PULSE 72–96; RESP 18–20; TEMP 36.3–37.1; O2SAT 94–100
[2025-01-16] MEDS: ALPRAZolam (*CRX) 0.5 MG TABLET PO ×4 (01:05→16:18)
[2025-01-16] MEDS: HYDROcodone/acetaminophen (*CRX) 5-325 MG TABLET 1 TAB PO ×2 (04:56→16:18)
[2025-01-16] MEDS: PANTOPRAZOLE 40 MG TABLET PO (08:23)
[2025-01-16] MEDS: oxyCODONE HCL (*CRX) 5 MG TAB IR PO (08:24)
[2025-01-16] MEDS: FERROUS SULFATE DRIED 142 MG TABCR PO (08:24)
[2025-01-16] MEDS: lisinopriL 5 MG TABLET PO (08:24)
[2025-01-16] MEDS: METOPROLOL TARTRATE 25 MG TABLET PO ×2 (08:24→20:52)
[2025-01-16] MEDS: CYCLOBENZAPRINE HCL 5 MG TABLET PO ×3 (08:25→16:18)
--- NOTE | 2025-01-16 10:12 | P.PNIM_ITS ---
Progress Note: A&P Assessment and Plan (1) Congestive heart failure: Qualifiers: Heart failure type: diastolic Heart failure chronicity: chronic Qualified Code(s): I50.32 - Chronic diastolic (congestive) heart failure Code(s): I50.9 - Heart failure, unspecified Status: Acute Assessment and Plan: Is getting better. Continue current treatment monitor closely. (2) Diastolic dysfunction: Code(s): I51.89 - Other ill-defined heart diseases Status: Acute Assessment and Plan: Stable on current medications. Will continue current treatment. (3) Hypertension: Code(s): I10 - Essential (primary) hypertension Status: Acute Assessment and Plan: Stable on current medications. Will continue current treatment. (4) Pulmonary embolism: Code(s): I26.99 - Other pulmonary embolism without acute cor pulmonale Status: Acute Assessment and Plan: Stable on current medications. Will continue current treatment. (5) Acute anemia: Code(s): D64.9 - Anemia, unspecified Status: Acute Assessment and Plan: Colon Exam negative. Hemoglobin stable. (6) Guaiac positive stools: Code(s): R19.5 - Other fecal abnormalities Status: Acute Assessment and Plan: GI following (7) Non-small cell carcinoma of right lung, stage 4: Onset Date: 11/2024 Code(s): C34.91 - Malignant neoplasm of unspecified part of right bronchus or lung Status: Acute Assessment and Plan: Stable (8) COPD (chronic obstructive pulmonary disease): Qualifiers: COPD type: unspecified COPD Qualified Code(s): J44.9 - Chronic obstructive pulmonary disease, unspecified Code(s): J44.9 - Chronic obstructive pulmonary disease, unspecified Status: Acute Assessment and Plan: Stable on current meds Plan Patient 69-year-old female who presents emergency department with chief complaint of syncopal episode. Patient has history of lung cancer and apparently has a new mass in her lung. The patient reports that she has not really been drinking over the last several days has been nauseated patient states that she got up to the bathroom had a syncopal episode patient was bradycardic and also hypotensive when EMS arrived. On ED arrival she was hypotensive with blood pressure of 70/38 pulse rate was 44 beats per minute oxygen saturation 89% on room air. Laboratory workup revealed hemoglobin of 5.9 FOBT was positive. Received IV fluid with improvement in blood pressure. CT scan of the head chest abdomen pelvis showed no acute abnormality. ABG 7.37 /51/142/29. Patient was recently admitted earlier this month for concern for ST-elevation [place]. cardiac catheterization showed no obstructive coronary artery disease. However was found to have pulmonary embolism with high probability V/Q scan and was started on anticoagulation. She was started on Eliquis PE on 01/01/2025. Lower extremity venous duplex was negative for DVT. Recent echocardiogram with EF 60-65% LV grade 1 diastolic dysfunction mild MR and TR moderate TR moderate pulmonary hypertension Acute on chronic blood-loss anemia, acute GI bleeding Acute severe anemia needing transfusion patient is stable now. GI bleed with FOBT positive stool EGD recently with mild gastritis. Hold off Eliquis, resume Eliquis when it is approved by GI Appreciate GI consultation Hemoglobin is stable is trending up Planned colonoscopy today History of pulmonary embolism Recently diagnosed PE with high probability V/Q scan on anticoagulation Off Eliquis. However will need anticoagulation for recently diagnosed PE. if contraindicate will consult surgeon for for inferior vena cava filter placement Follow-up GI recommendation Stage IV non-small cell lung cancer He was also recently diagnosed with stage IV non-small cell lung cancer arising in a pleural based mass in the right mid to lower lobe with pleural effusion. 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 She also has Port-A-Cath placed on 12/22/2024 for treatment of adenocarcinoma of the lung. Patient follows with Dr. Lozano Moderate pulmonic regurgitation and right ventricular dilation by prior echocardiogram Moderate pulmonary hypertension grade 1 diastolic dysfunction on echo in December 2024 with an EF of 60 to 65% Chronic respiratory failure with hypoxia, on home oxygen therapy Chronic obstructive pulmonary disease History of Bleeding gastric ulcer Hypertension Seasonal allergies Tension headache Depression Cervicalgia Low back pain Migraines Anxiety Anemia DVT prophylaxis SCDs Code status full code Subjective Date/time seen: 01/16/25 10:12 Interval history: Patient was seen during the morning rounds today. No new overnight complaints Patient feels slightly better today. No shortness of breath or chest pain. Review of Systems Review of Systems: - CONSTITUTIONAL: Denies weight loss, fe martín and chills. - HEENT: Denies changes in vision and he aring - RESPIRATORY: Reports SOB and denies c ough. - CV: Denies palpitations and CP. - GI: Denies abdominal pain, nausea, vom iting and diarrhea. - : Denies dysuria and urinary frequen cy. - MSK: Denies myalgia and joint pain. - SKIN: Denies rash and pruritus. - NEUROLOGICAL: Denies headache and repo rts syncope. - PSYCHIATRIC: Denies recent changes in mood. Denies anxiety and depression. Exam Narrative: GENERAL: ill-appearing, and in no acute distress. HEAD: Normocephalic, atraumatic. EYES: PERRLA and EOMI. ENT: Nares clear, no rhinorrhea or epistaxis. Mucous membranes moist. NECK: Supple. CHEST: Diminished breath sounds bilaterally No respiratory distress. On 3 L nasal cannula HEART: Regular rate and rhythm. No murmur heard. Normal peripheral pulses. ABDOMEN: Soft, nontender, nondistended, normal active bowel sounds. EXTREMITIES: Normal range of motion. No edema. SKIN: Warm, dry, no rash. NEURO: No focal deficits. Alert and oriented x3. PSYCH: Normal mood and affect. Objective Data Vital Signs Vital Signs: Vital Signs - 24 hr 01/15/25 15:09 01/15/25 19:51 01/15/25 20:00 Temperature 36.4 C 36.5 C Pulse Rate 70 68 Respiratory Rate 20 18 Blood Pressure 155/61 H 143/53 H Pulse Oximetry 96 94 94 Oxygen Delivery Nasal Cannula Oxygen Flow Rate 3 01/15/25 20:32 01/16/25 03:30 01/16/25 08:00 Temperature 37.1 C Pulse Rate 68 96 96 Respiratory Rate 18 18 Blood Pressure 165/60 H Pulse Oximetry 97 94 Oxygen Delivery Nasal Cannula Oxygen Flow Rate 2 01/16/25 08:24 01/16/25 08:35 Temperature Pulse Rate 96 Respiratory Rate Blood Pressure Pulse Oximetry 94 Oxygen Delivery Nasal Cannula Oxygen Flow Rate 3 Intake/Output Intake/Output: Intake & Output 01/13/25 01/14/25 01/15/25 01/16/25 23:59 23:59 23:59 23:59 Intake Total 287 150 1251 630 Output Total 950 1750 950 550 Balance -30 -1110 240 80 Meds/Results Medications: Active Medications Generic Name Dose Route Start Last Admin Trade Name Freq PRN Reason Stop Dose Admin Hydrocodone Bitart/Acetaminophen 1 tab 01/12/25 08:35 01/16/25 04:56 Hydrocodone/Acetaminophen (*Crx) 5-325 Mg Tablet PO 1 tab Q6H PRN Administration pain 4-6 Albuterol 2 puff 01/12/25 08:35 01/13/25 01:57 Albuterol Sulfate (*Sp) Aerosol 1 Puff INHALATION 2 puff Q4-6H PRN Administration shortness of breath or wheezing Albuterol/Ipratropium 3 ml 01/12/25 08:35 01/14/25 14:10 Ipratropium 0.5 Mg/Albuterol Sulfate 2.5 Mg Ampul.Neb 3 Ml INHALATION 3 ml Q6HRT PRN Administration shortness of breath or wheezing Alprazolam 0.5 mg 01/12/25 08:35 01/16/25 08:24 Alprazolam (*Crx) 0.5 Mg Tablet PO 0.5 mg TID PRN Administration Anxiety Apixaban 5 mg 01/16/25 17:00 Apixaban 5 Mg Tablet PO BID MINGO Cyclobenzaprine HCl 5 mg 01/12/25 08:35 01/16/25 08:25 Cyclobenzaprine Hcl 5 Mg Tablet PO 5 mg TID PRN Administration muscle spasm Ferrous Sulfate 142 mg 01/12/25 08:00 01/16/25 08:24 Ferrous Sulfate Dried 142 Mg Tabcr PO 142 mg DAILY@0800 MINGO Administration Lisinopril 5 mg 01/13/25 22:20 01/16/25 08:24 Lisinopril 5 Mg Tablet PO 5 mg QAM MINGO Administration Metoprolol Tartrate 25 mg 01/13/25 22:20 01/16/25 08:24 Metoprolol Tartrate 25 Mg Tablet PO 25 mg Q12HR MINGO Administration Ondansetron HCl 4 mg 01/12/25 14:17 01/15/25 15:24 Ondansetron Hcl Odt 4 Mg Tablet PO 4 mg Q8H PRN Administration nausea and vomiting Oxycodone HCl 5 mg 01/12/25 14:17 01/16/25 08:24 Oxycodone Hcl (*Crx) 5 Mg Tab Ir PO 5 mg Q6H PRN Administration pain 7-10 Pantoprazole Sodium 40 mg 01/15/25 09:00 01/16/25 08:23 Pantoprazole 40 Mg Tablet PO 40 mg QAM MINGO Administration Radiology Results: ITS Impressions Chest/Abdomen/Pelvis CT 01/12/25 00:33 IMPRESSION: Unchanged masslike opacities in the peripheral right mid and lower lung, may represent infection or neoplastic disease. Cystitis versus bladder wall thickening from incomplete distention. Otherwise, no acute abdominopelvic process detected. Head CT 01/12/25 00:34 IMPRESSION: No acute intracranial process. Chest X-Ray 01/12/25 15:14 IMPRESSION: 1. Persistent patchy masslike opacities at the lateral right mid and lower lung zones which are suspicious for malignancy. 2. Blunting at the bilateral costophrenic angles suggesting small bilateral pleural effusions. 3. Increasing opacities at the lateral right lung base which could be due to pleural effusion, atelectasis or pneumonia. 4. Cardia megaly.
[2025-01-16] MEDS: APIXABAN 5 MG TABLET PO ×2 (11:41→20:52)
[2025-01-16 19:51] LABS: Hemoglobin 5.9 g/dL (12.0-15.0)
[2025-01-17] VITALS (8 sets, daily range): BP systolic 120–146; BP diastolic 50–65; PULSE 72–113; RESP 18–20; TEMP 36.3–36.9; O2SAT 98–100
[2025-01-17] MEDS: oxyCODONE HCL (*CRX) 5 MG TAB IR PO ×3 (03:08→20:56)
[2025-01-17 05:03] LABS: Basophils Percent Auto 0.8 % (0.2-1.2); Eosinophils Absolute Auto 0.2 K/mm3 (0-0.3); Eosinophils Percent Auto 3.5 % (0-4.4); Hematocrit 38.8 % (37.0-47.0); Hemoglobin 10.5 g/dL (12.0-15.0); Immature Granulocyte Absolute 0.01 K/mm3 (0.00-0.031); Immature Granulocyte Percent A 0.2 % (0-0.5); Lymphocytes Percent Auto 10.2 % (18.3-44.2); Mean Corpuscular HGB Conc 27.1 g/dl (32-36); Mean Corpuscular Hemoglobin 25.8 pg (26-34); Mean Corpuscular Volume 95.3 fl (80-100); Mean Platelet Volume 9.4 fl (7.4-10.4); Monocytes Absolute Auto 0.3 K/mm3 (0.1-0.6); Monocytes Percent Auto 6.5 % (2.6-8.5); Neutrophils Absolute Auto 3.9 K/mm3 (1.3-6.7); Neutrophils Percent Auto 78.8 % (45.5-73.1); Platelet Count Result 296 k/mm3 (150-375); Red Blood Count 4.07 M/mm3 (4.2-5.4); Red Cell Distribution Width 15.9 % (11.5-14.5); White Blood Count 4.9 K/mm3 (4.5-10.0)
[2025-01-17 05:26] LABS: Anisocytosis 1+; Hypochromasia 1+; Platelet Estimate Adequate (Adequate); Schistocytes None Seen
[2025-01-17] MEDS: APIXABAN 5 MG TABLET PO ×2 (10:18→20:58)
[2025-01-17] MEDS: FERROUS SULFATE DRIED 142 MG TABCR PO (10:18)
[2025-01-17] MEDS: lisinopriL 5 MG TABLET PO (10:18)
[2025-01-17] MEDS: ALPRAZolam (*CRX) 0.5 MG TABLET PO ×3 (10:18→20:56)
[2025-01-17] MEDS: METOPROLOL TARTRATE 25 MG TABLET PO ×2 (10:18→20:56)
[2025-01-17] MEDS: PANTOPRAZOLE 40 MG TABLET PO (10:18)
[2025-01-17] MEDS: CYCLOBENZAPRINE HCL 5 MG TABLET PO ×3 (10:18→20:56)
[2025-01-17] MEDS: HYDROcodone/acetaminophen (*CRX) 5-325 MG TABLET 1 TAB PO ×2 (10:19→16:27)
--- NOTE | 2025-01-17 10:20 | P.PNIM_ITS ---
Progress Note: A&P Assessment and Plan (1) Congestive heart failure: Qualifiers: Heart failure type: diastolic Heart failure chronicity: chronic Qualified Code(s): I50.32 - Chronic diastolic (congestive) heart failure Code(s): I50.9 - Heart failure, unspecified Status: Acute Assessment and Plan: Is getting better. Continue current treatment monitor closely. Increase activity (2) Diastolic dysfunction: Code(s): I51.89 - Other ill-defined heart diseases Status: Acute Assessment and Plan: Stable on current medications. Will continue current treatment. (3) Hypertension: Code(s): I10 - Essential (primary) hypertension Status: Acute Assessment and Plan: Stable on current medications. Will continue current treatment. (4) Pulmonary embolism: Code(s): I26.99 - Other pulmonary embolism without acute cor pulmonale Status: Acute Assessment and Plan: Stable on current medications. Will continue current treatment. (5) Acute anemia: Code(s): D64.9 - Anemia, unspecified Status: Acute Assessment and Plan: Colon Exam negative. Hemoglobin stable. (6) Guaiac positive stools: Code(s): R19.5 - Other fecal abnormalities Status: Acute Assessment and Plan: GI following (7) Non-small cell carcinoma of right lung, stage 4: Onset Date: 11/2024 Code(s): C34.91 - Malignant neoplasm of unspecified part of right bronchus or lung Status: Acute Assessment and Plan: Stable (8) COPD (chronic obstructive pulmonary disease): Qualifiers: COPD type: unspecified COPD Qualified Code(s): J44.9 - Chronic obstructive pulmonary disease, unspecified Code(s): J44.9 - Chronic obstructive pulmonary disease, unspecified Status: Acute Assessment and Plan: Stable on current meds Plan Patient 69-year-old female who presents emergency department with chief complaint of syncopal episode. Patient has history of lung cancer and apparently has a new mass in her lung. The patient reports that she has not really been drinking over the last several days has been nauseated patient states that she got up to the bathroom had a syncopal episode patient was bradycardic and also hypotensive when EMS arrived. On ED arrival she was hypotensive with blood pressure of 70/38 pulse rate was 44 beats per minute oxygen saturation 89% on room air. Laboratory workup revealed hemoglobin of 5.9 FOBT was positive. Received IV fluid with improvement in blood pressure. CT scan of the head chest abdomen pelvis showed no acute abnormality. ABG 7.37/51/142/29. Patient was recently admitted earlier this month for concern for ST-elevation [place]. cardiac catheterization showed no obstructive coronary artery disease. However was found to have pulmonary embolism with high probability V/Q scan and was started on anticoagulation. She was started on Eliquis PE on 01/01/2025. Lower extremity venous duplex was negative for DVT. Recent echocardiogram with EF 60-65% LV grade 1 diastolic dysfunction mild MR and TR moderate TR moderate pulmonary hypertension Acute on chronic blood-loss anemia, acute GI bleeding Acute severe anemia needing transfusion patient is stable now. GI bleed with FOBT positive stool EGD recently with mild gastritis. Hold off Eliquis, resume Eliquis when it is approved by GI Appreciate GI consultation Hemoglobin is stable is trending up Planned colonoscopy today History of pulmonary embolism Recently diagnosed PE with high probability V/Q scan on anticoagulation Off Eliquis. However will need anticoagulation for recently diagnosed PE. if contraindicate will consult surgeon for for inferior vena cava filter placement Follow-up GI recommendation Stage IV non-small cell lung cancer He was also recently diagnosed with stage IV non-small cell lung cancer arising in a pleural based mass in the right mid to lower lobe with pleural effusion. 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 She also has Port-A-Cath placed on 12/22/2024 for treatment of adenocarcinoma of the lung. Patient follows with Dr. Lozano Moderate pulmonic regurgitation and right ventricular dilation by prior echocardiogram Moderate pulmonary hypertension grade 1 diastolic dysfunction on echo in December 2024 with an EF of 60 to 65% Chronic respiratory failure with hypoxia, on home oxygen therapy Chronic obstructive pulmonary disease History of Bleeding gastric ulcer Hypertension Seasonal allergies Tension headache Depression Cervicalgia Low back pain Migraines Anxiety Anemia DVT prophylaxis SCDs Code status full code Subjective Date/time seen: 01/17/25 10:20 Interval history: Patient was seen during the morning rounds today. Patient feels slightly better today. No shortness of breath or chest pain. Review of Systems Review of Systems: - CONSTITUTIONAL: Denies weight loss, fe martín and chills. - HEENT: Denies changes in vision and he aring - RESPIRATORY: Reports SOB and denies c ough. - CV: Denies palpitations and CP. - GI: Denies abdominal pain, nausea, vom iting and diarrhea. - : Denies dysuria and urinary frequen cy. - MSK: Denies myalgia and joint pain. - SKIN: Denies rash and pruritus. - NEUROLOGICAL: Denies headache and repo rts syncope. - PSYCHIATRIC: Denies recent changes in mood. Denies anxiety and depression. Exam Narrative: GENERAL: ill-appearing, and in no acute distress. HEAD: Normocephalic, atraumatic. EYES: PERRLA and EOMI. ENT: Nares clear, no rhinorrhea or epistaxis. Mucous membranes moist. NECK: Supple. CHEST: Diminished breath sounds bilaterally No respiratory distress. On 3 L nasal cannula HEART: Regular rate and rhythm. No murmur heard. Normal peripheral pulses. ABDOMEN: Soft, nontender, nondistended, normal active bowel sounds. EXTREMITIES: Normal range of motion. No edema. SKIN: Warm, dry, no rash. NEURO: No focal deficits. Alert and oriented x3. PSYCH: Normal mood and affect. Objective Data Vital Signs Vital Signs: Vital Signs - 24 hr 01/16/25 11:10 01/16/25 14:53 01/16/25 17:18 Temperature 36.6 C 36.6 C Pulse Rate 72 Respiratory Rate 18 Blood Pressure 158/62 H Pulse Oximetry 100 Oxygen Delivery Nasal Cannula Oxygen Flow Rate 3 01/16/25 19:27 01/16/25 20:00 01/16/25 20:27 Temperature 36.3 C L Pulse Rate 75 88 Respiratory Rate 20 Blood Pressure 133/50 L Pulse Oximetry 100 100 96 Oxygen Delivery Nasal Cannula Nasal Cannula Oxygen Flow Rate 3 3 01/16/25 20:52 01/17/25 00:00 01/17/25 04:22 Temperature 36.5 C 36.9 C Pulse Rate 75 74 84 Respiratory Rate 20 20 Blood Pressure 136/56 L 138/60 Pulse Oximetry 100 98 Oxygen Delivery Oxygen Flow Rate Intake/Output Intake/Output: Intake & Output 01/14/25 01/15/25 01/16/25 01/17/25 23:59 23:59 23:59 23:59 Intake Total 640 1190 950 200 Output Total 1750 950 550 300 Balance -1110 240 400 -100 Meds/Results Medications: Active Medications Generic Name Dose Route Start Last Admin Trade Name Freq PRN Reason Stop Dose Admin Hydrocodone Bitart/Acetaminophen 1 tab 01/12/25 08:35 01/16/25 16:18 Hydrocodone/Acetaminophen (*Crx) 5-325 Mg Tablet PO 1 tab Q6H PRN Administration pain 4-6 Albuterol 2 puff 01/12/25 08:35 01/13/25 01:57 Albuterol Sulfate (*Sp) Aerosol 1 Puff INHALATION 2 puff Q4-6H PRN Administration shortness of breath or wheezing Albuterol/Ipratropium 3 ml 01/12/25 08:35 01/14/25 14:10 Ipratropium 0.5 Mg/Albuterol Sulfate 2.5 Mg Ampul.Neb 3 Ml INHALATION 3 ml Q6HRT PRN Administration shortness of breath or wheezing Alprazolam 0.5 mg 01/12/25 08:35 01/16/25 16:18 Alprazolam (*Crx) 0.5 Mg Tablet PO 0.5 mg TID PRN Administration Anxiety Apixaban 5 mg 01/16/25 09:00 01/16/25 20:52 Apixaban 5 Mg Tablet PO 5 mg Q12HR MINGO Administration Cyclobenzaprine HCl 5 mg 01/12/25 08:35 01/16/25 16:18 Cyclobenzaprine Hcl 5 Mg Tablet PO 5 mg TID PRN Administration muscle spasm Ferrous Sulfate 142 mg 01/12/25 08:00 01/16/25 08:24 Ferrous Sulfate Dried 142 Mg Tabcr PO 142 mg DAILY@0800 MINGO Administration Lisinopril 5 mg 01/13/25 22:20 01/16/25 08:24 Lisinopril 5 Mg Tablet PO 5 mg QAM MINGO Administration Metoprolol Tartrate 25 mg 01/13/25 22:20 01/16/25 20:52 Metoprolol Tartrate 25 Mg Tablet PO 25 mg Q12HR MINGO Administration Ondansetron HCl 4 mg 01/12/25 14:17 01/15/25 15:24 Ondansetron Hcl Odt 4 Mg Tablet PO 4 mg Q8H PRN Administration nausea and vomiting Oxycodone HCl 5 mg 01/12/25 14:17 01/17/25 03:08 Oxycodone Hcl (*Crx) 5 Mg Tab Ir PO 5 mg Q6H PRN Administration pain 7-10 Pantoprazole Sodium 40 mg 01/15/25 09:00 01/16/25 08:23 Pantoprazole 40 Mg Tablet PO 40 mg QAM MINGO Administration Radiology Results: ITS Impressions Chest/Abdomen/Pelvis CT 01/12/25 00:33 IMPRESSION: Unchanged masslike opacities in the peripheral right mid and lower lung, may represent infection or neoplastic disease. Cystitis versus bladder wall thickening from incomplete distention. Otherwise, no acute abdominopelvic process detected. Head CT 01/12/25 00:34 IMPRESSION: No acute intracranial process. Chest X-Ray 01/12/25 15:14 IMPRESSION: 1. Persistent patchy masslike opacities at the lateral right mid and lower lung zones which are suspicious for malignancy. 2. Blunting at the bilateral costophrenic angles suggesting small bilateral pleural effusions. 3. Increasing opacities at the lateral right lung base which could be due to pleural effusion, atelectasis or pneumonia. 4. Cardia megaly. Labs Labs: Laboratory Results - last 24 hr 01/11/25 01/17/25 22:08 04:38 WBC 4.9 RBC 4.07 L Hgb 5.9 L* 10.5 L Hct 38.8 MCV 95.3 MCH 25.8 L MCHC 27.1 L RDW 15.9 H Plt Count 296 MPV 9.4 Immature Gran % (Auto) 0.2 Neut % (Auto) 78.8 H Lymph % (Auto) 10.2 L Whitfield % (Auto) 6.5 Eos % (Auto) 3.5 Baso % (Auto) 0.8 Lymph # (Auto) 0.50 L [place]field # (Auto) 0.3 Eos # (Auto) 0.2 Baso # (Auto) 0.0 Abs Immat Gran (auto) 0.01 Absolute Neuts (auto) 3.9 Absolute Nucleated RBC 0.000 Band Neutrophils % Not Reportable Nucleated RBC % 0.0 Platelet Estimate Adequate Hypochromasia 1+ Anisocytosis 1+ Schistocytes None seen
[2025-01-18] VITALS (9 sets, daily range): BP systolic 150–177; BP diastolic 60–73; PULSE 70–93; RESP 16–20; TEMP 36.5–36.7; O2SAT 96–100
[2025-01-18] MEDS: ALBUTEROL SULFATE (*SP) AEROSOL 1 PUFF 2 PUFF INHALATION (07:12)
[2025-01-18] MEDS: APIXABAN 5 MG TABLET PO ×2 (08:01→19:57)
[2025-01-18] MEDS: METOPROLOL TARTRATE 25 MG TABLET PO ×2 (08:01→19:58)
[2025-01-18] MEDS: PANTOPRAZOLE 40 MG TABLET PO (08:02)
[2025-01-18] MEDS: FERROUS SULFATE DRIED 142 MG TABCR PO (08:02)
[2025-01-18] MEDS: lisinopriL 5 MG TABLET PO (08:02)
--- NOTE | 2025-01-18 12:15 | P.PNIM_ITS ---
Progress Note: A&P Assessment and Plan (1) Congestive heart failure: Qualifiers: Heart failure chronicity: chronic Heart failure type: diastolic Qualified Code(s): I50.32 - Chronic diastolic (congestive) heart failure Code(s): I50.9 - Heart failure, unspecified Status: Acute Assessment and Plan: Is getting better. Continue current treatment monitor closely. Increase activity (2) Diastolic dysfunction: Code(s): I51.89 - Other ill-defined heart diseases Status: Acute Assessment and Plan: Stable on current medications. Will continue current treatment. (3) Hypertension: Code(s): I10 - Essential (primary) hypertension Status: Acute Assessment and Plan: Stable on current medications. Will continue current treatment. (4) Pulmonary embolism: Code(s): I26.99 - Other pulmonary embolism without acute cor pulmonale Status: Acute Assessment and Plan: Stable on current medications. Will continue current treatment. (5) Acute anemia: Code(s): D64.9 - Anemia, unspecified Status: Acute Assessment and Plan: Colon Exam negative. Hemoglobin stable. (6) Guaiac positive stools: Code(s): R19.5 - Other fecal abnormalities Status: Acute Assessment and Plan: GI following (7) Non-small cell carcinoma of right lung, stage 4: Onset Date: 11/2024 Code(s): C34.91 - Malignant neoplasm of unspecified part of right bronchus or lung Status: Acute Assessment and Plan: Stable (8) COPD (chronic obstructive pulmonary disease): Qualifiers: COPD type: unspecified COPD Qualified Code(s): J44.9 - Chronic obstructive pulmonary disease, unspecified Code(s): J44.9 - Chronic obstructive pulmonary disease, unspecified Status: Acute Assessment and Plan: Stable on current meds Plan Patient 69-year-old female who presents emergency department with chief complaint of syncopal episode. Patient has history of lung cancer and apparently has a new mass in her lung. The patient reports that she has not really been drinking over the last several days has been nauseated patient states that she got up to the bathroom had a syncopal episode patient was bradycardic and also hypotensive when EMS arrived. On ED arrival she was hypotensive with blood pressure of 70/38 pulse rate was 44 beats per minute oxygen saturation 89% on room air. Laboratory workup revealed hemoglobin of 5.9 FOBT was positive. Received IV fluid with improvement in blood pressure. CT scan of the head chest abdomen pelvis showed no acute abnormality. ABG 7.37/51/142/29. Patient was recently admitted earlier this month for concern for ST-elevation [place]. cardiac catheterization showed no obstructive coronary artery disease. However was found to have pulmonary embolism with high probability V/Q scan and was started on anticoagulation. She was started on Eliquis PE on 01/01/2025. Lower extremity venous duplex was negative for DVT. Recent echocardiogram with EF 60-65% LV grade 1 diastolic dysfunction mild MR and TR moderate TR moderate pulmonary hypertension Acute on chronic blood-loss anemia, acute GI bleeding Acute severe anemia needing transfusion patient is stable now. GI bleed with FOBT positive stool EGD recently with mild gastritis. Hold off Eliquis, resume Eliquis when it is approved by GI Appreciate GI consultation Hemoglobin is stable is trending up Colonoscopy showed small-sized internal hemorrhoid, diverticula without active bleeding 01/14 History of pulmonary embolism Recently diagnosed PE with high probability V/Q scan on anticoagulation was Off Eliquis due to active bleeding EGD colonoscopy performed by ANNY, Ra Eliqueric on January 16. Stage IV non-small cell lung cancer He was also recently diagnosed with stage IV non-small cell lung cancer arising in a pleural based mass in the right mid to lower lobe with pleural effusion. 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 She also has Port-A-Cath placed on 12/22/2024 for treatment of adenocarcinoma of the lung. Patient follows with Dr. Lozano Patient wishes hospice care Will consult heme oncologist for further evaluation and management about cancer. If further aggressive treatment following cancer will be futile will transfer patient to hospice Moderate pulmonic regurgitation and right ventricular dilation by prior echocardiogram Moderate pulmonary hypertension grade 1 diastolic dysfunction on echo in December 2024 with an EF of 60 to 65% COPD and Chronic respiratory failure with hypoxia, on home oxygen therapy Hypertension Seasonal allergies Tension headache Depression Cervicalgia Low back pain Migraines Anxiety Anemia DVT prophylaxis SCDs Code status full code Patient wishes DNR DNI. code status was discussed with the patient in presents of patient's niece and patient's son over the phone Subjective Date/time seen: 01/18/25 12:15 Interval history: I saw examined patient in presents of patient's niece and patient's son over the phone today. Patient is still has uncontrolled pain on the chest and back due to the cancer. Patient also has some shortness breath worsening because of pain Patient denies abdomen pain nausea vomiting diarrhea or bloody stools Exam Narrative: GENERAL: Ill-appearing, some pain distress. Well-nourished. - EYES: EOMI. Anicteric. - HENT: Moist mucous membranes. - LUNGS: Clear to auscultation bilateral ly, no wheezing, rhonchi, or rales. - CARDIOVASCULAR: Regular rate and rhyth m. No murmur. No JVD. - ABDOMEN: Soft, non-tender and non-dist ended. No palpable masses. - EXTREMITIES: No edema. Peripheral puls es 2+. Non-tender. - NEUROLOGIC: No focal neurological defi cits. CN II-XII grossly intact. - PSYCHIATRIC: Awake, Alert and oriented x 3. Anxious mood and affect. - SKIN: No rashes or lesions. Warm. - LYMPH: No cervical lymphadenopathy. Objective Data Vital Signs Vital Signs: Vital Signs - 24 hr 01/17/25 15:39 01/17/25 20:27 01/17/25 20:45 Temperature 97.4 F L 97.8 F Pulse Rate 72 113 H Respiratory Rate 20 18 Blood Pressure 146/65 H 120/50 L Pulse Oximetry 100 100 100 Oxygen Delivery Nasal Cannula Oxygen Flow Rate 3 Fraction of Inspired Oxygen 01/17/25 20:56 01/18/25 04:50 01/18/25 07:12 Temperature 97.7 F Pulse Rate 113 H 76 Respiratory Rate 20 Blood Pressure 150/60 H Pulse Oximetry 100 98 Oxygen Delivery Nasal Cannula Oxygen Flow Rate 3 Fraction of Inspired Oxygen 32 01/18/25 07:12 01/18/25 08:01 01/18/25 08:05 Temperature Pulse Rate 82 80 80 Respiratory Rate 20 20 Blood Pressure Pulse Oximetry 98 Oxygen Delivery Nasal Cannula Oxygen Flow Rate 3 Fraction of Inspired Oxygen Intake/Output Intake/Output: Intake & Output 01/15/25 01/16/25 01/17/25 01/18/25 23:59 23:59 23:59 23:59 Intake Total 1190 950 860 430 Output Total 950 550 300 Balance 240 400 560 430 Meds/Results Medications: Active Medications Generic Name Dose Route Start Last Admin Trade Name Freq PRN Reason Stop Dose Admin Hydrocodone Bitart/Acetaminophen 1 tab 01/12/25 08:35 01/17/25 16:27 Hydrocodone/Acetaminophen (*Crx) 5-325 Mg Tablet PO 1 tab Q6H PRN Administration pain 4-6 Albuterol 2 puff 01/12/25 08:35 01/18/25 07:12 Albuterol Sulfate (*Sp) Aerosol 1 Puff INHALATION 2 puff Q4-6H PRN Administration shortness of breath or wheezing Albuterol/Ipratropium 3 ml 01/12/25 08:35 01/14/25 14:10 Ipratropium 0.5 Mg/Albuterol Sulfate 2.5 Mg Ampul.Neb 3 Ml INHALATION 3 ml Q6HRT PRN Administration shortness of breath or wheezing Alprazolam 0.5 mg 01/12/25 08:35 01/17/25 20:56 Alprazolam (*Crx) 0.5 Mg Tablet PO 0.5 mg TID PRN Administration Anxiety Apixaban 5 mg 01/16/25 09:00 01/18/25 08:01 Apixaban 5 Mg Tablet PO 5 mg Q12HR MINGO Administration Cyclobenzaprine HCl 5 mg 01/12/25 08:35 01/17/25 20:56 Cyclobenzaprine Hcl 5 Mg Tablet PO 5 mg TID PRN Administration muscle spasm Ferrous Sulfate 142 mg 01/12/25 08:00 01/18/25 08:02 Ferrous Sulfate Dried 142 Mg Tabcr PO 142 mg DAILY@0800 MINGO Administration Lisinopril 5 mg 01/13/25 22:20 01/18/25 08:02 Lisinopril 5 Mg Tablet PO 5 mg QAM MINGO Administration Metoprolol Tartrate 25 mg 01/13/25 22:20 01/18/25 08:01 Metoprolol Tartrate 25 Mg Tablet PO 25 mg Q12HR MINGO Administration Ondansetron HCl 4 mg 01/12/25 14:17 01/15/25 15:24 Ondansetron Hcl Odt 4 Mg Tablet PO 4 mg Q8H PRN Administration nausea and vomiting Oxycodone HCl 5 mg 01/12/25 14:17 01/17/25 20:56 Oxycodone Hcl (*Crx) 5 Mg Tab Ir PO 5 mg Q6H PRN Administration pain 7-10 Pantoprazole Sodium 40 mg 01/15/25 09:00 01/18/25 08:02 Pantoprazole 40 Mg Tablet PO 40 mg QAM MINGO Administration Radiology Results: ITS Impressions Chest/Abdomen/Pelvis CT 01/12/25 00:33 IMPRESSION: Unchanged masslike opacities in the peripheral right mid and lower lung, may represent infection or neoplastic disease. Cystitis versus bladder wall thickening from incomplete distention. Otherwise, no acute abdominopelvic process detected. Head CT 01/12/25 00:34 IMPRESSION: No acute intracranial process. Chest X-Ray 01/12/25 15:14 IMPRESSION: 1. Persistent patchy masslike opacities at the lateral right mid and lower lung zones which are suspicious for malignancy. 2. Blunting at the bilateral costophrenic angles suggesting small bilateral pleural effusions. 3. Increasing opacities at the lateral right lung base which could be due to pleural effusion, atelectasis or pneumonia. 4. Cardia megaly.
--- NOTE | 2025-01-18 13:15 | PCPTNOTE ---
Patient refused treatment this session due to patient having visitors.
--- NOTE | 2025-01-18 14:08 | PCPTNOTE ---
Patient refused treatment this session due to 7/10 pain. RN aware.
[2025-01-18] MEDS: CYCLOBENZAPRINE HCL 5 MG TABLET PO ×2 (14:09→22:53)
[2025-01-18] MEDS: oxyCODONE HCL (*CRX) 5 MG TAB IR PO ×2 (14:09→22:53)
[2025-01-18] MEDS: ALPRAZolam (*CRX) 0.5 MG TABLET PO ×2 (14:28→19:59)
--- NOTE | 2025-01-18 19:28 | P.CONONC_ITS ---
Assessment and Plan Assessment and plan (1) Cancer of right lung: Code(s): C34.91 - Malignant neoplasm of unspecified part of right bronchus or lung Status: Acute Assessment and Plan: Patient with recently diagnosed with right lung adenocarcinoma with malignant right pleural effusion making it a stage IV disease. She has seen Dr. Lozano as an outpatient on 12/25/2024 and treatment plan was made. However patient has further deteriorated with her heart and lung conditions. Today she clearly expresses desire for forego any treatment for lung cancer. She chooses comfort care and hospice. Patient should be discharged to the hospice. HPI Data of Consult Date/Time: 01/18/25 19:28 Requesting Physician: Shaila Tomas MD Primary Care Provider: Jessie Mijares NP Consult Narrative Narrative: Inez Delgado is a 69 year old female who recently was diagnosed with stage IV right lung adenocarcinoma. Patient has seen Dr. Lozano on 12/25/2024 in Oncology Clinic and per Dr. Lozano patient has stage IV lung cancer with right lower lobe pleural based mass and malignant right-sided pleural effusion. On 12/25/2024 oncology visit patient was asked to undergo PET-CT scan and brain MRI to finish the staging workup. Patient at that time was interested in chemotherapy and carboplatin, Alimta, pembrolizumab was recommended. However since then patient reports that she has deteriorated even further and was not able to get the recommended studies. She is now admitted for syncopal episode occurred on 01/12/2025. Her hemoglobin was 5.[address] scan showed no bleeding. Patient has been transfused and stabilized. Patient was seen at bedside and clearly express desire that she does not want to go for any treatment for stage IV lung cancer. Patient wishes to go for hospice and comfort care. [facility] Past Medical History Medical History (Updated 01/18/25 @ 19:33 by Carole Montana MD) Blood thinned due to long-term anticoagulant use Moderate pulmonic regurgitation and right ventricular dilation by prior echocardiogram Moderate pulmonary hypertension Diastolic dysfunction grade 1 diastolic dysfunction on echo in December 2024 with an EF of 60 to 65% Non-small cell carcinoma of right lung, stage 4 (11/2024) arising in a pleural based mass in the right mid to lower lung with malignant effusion Chronic respiratory failure with hypoxia, on home oxygen therapy Chronic obstructive pulmonary disease Bleeding gastric ulcer Hypertension History of blood transfusion Seasonal allergies Tension headache Depression Cervicalgia Low back pain Migraines Anxiety Anemia Surgical History Surgical History History of cardiac catheterization (12/29/24) minimal irregularities with possible apical inferior hypokinesis and an EF 55% History of transcatheter aortic valve implantation (REYNA) (2022) via right neck History of laparoscopy History of esophagogastroduodenoscopy (EGD) History of (1980) Family History Family History Father Alcoholism Heart disease Hypertension Grandparent Carcinoma of colon Acute myocardial infarction Social History Social History Social History: Surrogate medical decision maker: Shara Martin rosa Code status: Full code. Smoking packs per day: 1 Smoking cigarettes per day: 20.0 Years smoked: 50 Smoking pack-years: 50.00 Smoking status: Former smoker Tobacco type: cigarettes Smoking end date: 03/26/24 Alcohol intake: never Substance use: never Substance use type: does not use Do You Feel Safe in your Home?: Yes Lack of Transportation: No Lack of Food: Never True Current Housing: I Have Housing Concerned About Future Housing: No Difficulty Paying Gas/Electric Bills: No Difficulty Paying for Meds: No Currently Unemployed: No Education: Associate Degree Difficulty w/ Childcare or Family Care: No Living arrangements: with family Additional living arrangements comments: SISTER Spiritual care concerns: No Meds Home Medications and Allergies Home Medications ?Medication ?Instructions ?Recorded ?Confirmed ?Type cyclobenzaprine 10 mg tablet 5 - 10 mg (0.5 - 1 x 10 mg) PO TID 01/03/24 01/12/25 Rx PRN muscle spasm #90 tabs lisinopril 5 mg tablet 5 mg PO DAILY #30 tabs 01/03/24 01/12/25 Rx metoprolol tartrate 25 mg tablet 25 mg PO BID #60 tabs 01/03/24 01/12/25 Rx omeprazole 40 mg capsule,delayed 40 mg PO DAILY #30 caps 01/03/24 01/12/25 Rx release ferrous sulfate 137 mg (45 mg 137 mg PO DAILY 01/06/24 01/12/25 History iron) tablet,extended release (Slow Fe) alprazolam 0.5 mg tablet 0.5 mg PO TID PRN Anxiety #15 tabs 12/18/24 01/12/25 Rx lisinopril 5 mg tablet 5 mg PO QAM #90 tabs 12/18/24 01/12/25 Rx nebulizer and compressor #1 ea 12/18/24 01/12/25 Rx albuterol sulfate 90 mcg/actuation 1 - 2 inh inhalation Q4-6H PRN 12/21/24 01/12/25 Rx aerosol inhaler shortness of breath or wheezing #8.5 grams ipratropium 0.5 mg-albuterol 3 mg 3 ml inhalation Q6HRT PRN 12/21/24 01/12/25 History (2.5 mg base)/3 mL nebulization shortness of breath or wheezing soln apixaban 5 mg tablet (Eliquis) 5 mg PO BID #80 tabs 12/31/24 01/12/25 Rx hydrocodone 5 mg-acetaminophen 325 1 tablet PO Q6H PRN pain 01/12/25 01/12/25 History mg tablet ondansetron 4 mg disintegrating 4 mg PO Q8H PRN nausea and vomiting 01/12/25 01/12/25 History tablet oxycodone 5 mg tablet 5 mg PO Q6H PRN pain 01/12/25 01/12/25 History Allergies Allergy/AdvReac Type Severity Reaction Status Date / Time iohexol (From contrast - CT, AdvReac FLUSHED, Verified 12/22/24 08:30 X-RAY) HOT FEELING Vital Signs Vital Signs - 24 hr 01/17/25 20:27 01/17/25 20:45 01/17/25 20:56 Temperature 36.6 C Pulse Rate 113 H 113 H Respiratory Rate 18 Blood Pressure 120/50 L Pulse Oximetry 100 100 Oxygen Delivery Nasal Cannula Oxygen Flow Rate 3 Fraction of Inspired Oxygen 01/18/25 04:50 01/18/25 07:12 01/18/25 07:12 Temperature 36.5 C Pulse Rate 76 82 Respiratory Rate 20 20 Blood Pressure 150/60 H Pulse Oximetry 100 98 Oxygen Delivery Nasal Cannula Oxygen Flow Rate 3 Fraction of Inspired Oxygen 32 01/18/25 08:01 01/18/25 08:05 01/18/25 14:00 Temperature 36.5 C Pulse Rate 80 80 70 Respiratory Rate 20 16 Blood Pressure 176/69 H Pulse Oximetry 98 97 Oxygen Delivery Nasal Cannula Oxygen Flow Rate 3 Fraction of Inspired Oxygen Exam 2 Narrative: Alert and oriented x3, audible wheezing, ill-appearing female in no acute distress HEENT: EOMI, no scleral icterus CV: Regular rate and rhythm no murmurs gallops or rubs RESP: Wheezing and coarse breath sounds in all lung hurst Abdomen: Soft Tender nondistended Extremities: No cyanosis or wounds or edema. Results Labs 01/17/25 04:38 01/14/25 11:06
[2025-01-18] MEDS: HYDROcodone/acetaminophen (*CRX) 5-325 MG TABLET 1 TAB PO (19:57)
[2025-01-19] VITALS (7 sets, daily range): BP systolic 120–167; BP diastolic 57–69; PULSE 65–92; RESP 18–20; TEMP 36.5–36.8; O2SAT 98–100
[2025-01-19] MEDS: HYDROcodone/acetaminophen (*CRX) 5-325 MG TABLET 1 TAB PO ×2 (04:37→11:30)
[2025-01-19] MEDS: CYCLOBENZAPRINE HCL 5 MG TABLET PO ×3 (04:38→16:56)
--- NOTE | 2025-01-19 08:04 | PM.IMPN ---
Progress Note: A&P Assessment and Plan (1) Congestive heart failure: Qualifiers: Heart failure chronicity: chronic Heart failure type: diastolic Qualified Code(s): I50.32 - Chronic diastolic (congestive) heart failure Code(s): I50.9 - Heart failure, unspecified Status: Acute Assessment and Plan: Is getting better. Continue current treatment monitor closely. Increase activity (2) Diastolic dysfunction: Code(s): I51.89 - Other ill-defined heart diseases Status: Acute Assessment and Plan: Stable on current medications. Will continue current treatment. (3) Hypertension: Code(s): I10 - Essential (primary) hypertension Status: Acute Assessment and Plan: Stable on current medications. Will continue current treatment. (4) Pulmonary embolism: Code(s): I26.99 - Other pulmonary embolism without acute cor pulmonale Status: Acute Assessment and Plan: Stable on current medications. Will continue current treatment. (5) Acute anemia: Code(s): D64.9 - Anemia, unspecified Status: Acute Assessment and Plan: Colon Exam negative. Hemoglobin stable. (6) Guaiac positive stools: Code(s): R19.5 - Other fecal abnormalities Status: Acute Assessment and Plan: GI following (7) Non-small cell carcinoma of right lung, stage 4: Onset Date: 11/2024 Code(s): C34.91 - Malignant neoplasm of unspecified part of right bronchus or lung Status: Acute Assessment and Plan: Stable (8) COPD (chronic obstructive pulmonary disease): Qualifiers: COPD type: unspecified COPD Qualified Code(s): J44.9 - Chronic obstructive pulmonary disease, unspecified Code(s): J44.9 - Chronic obstructive pulmonary disease, unspecified Status: Acute Assessment and Plan: Stable on current meds Plan Patient 69-year-old female who presents emergency department with chief complaint of syncopal episode. Patient has history of lung cancer and apparently has a new mass in her lung. The patient reports that she has not really been drinking over the last several days has been nauseated patient states that she got up to the bathroom had a syncopal episode patient was bradycardic and also hypotensive when EMS arrived. On ED arrival she was hypotensive with blood pressure of 70/38 pulse rate was 44 beats per minute oxygen saturation 89% on room air. Laboratory workup revealed hemoglobin of 5.9 FOBT was positive. Received IV fluid with improvement in blood pressure. CT scan of the head chest abdomen pelvis showed no acute abnormality. ABG 7.37/51/142/29. Patient was recently admitted earlier this month for concern for ST-elevation MT. cardiac catheterization showed no obstructive coronary artery disease. However was found to have pulmonary embolism with high probability V/Q scan and was started on anticoagulation. She was started on Eliquis PE on 01/01/2025. Lower extremity venous duplex was negative for DVT. Recent echocardiogram with EF 60-65% LV grade 1 diastolic dysfunction mild MR and TR moderate TR moderate pulmonary hypertension Acute on chronic blood-loss anemia, acute GI bleeding Acute severe anemia needing transfusion patient is stable now. GI bleed with FOBT positive stool EGD recently with mild gastritis. Hold off Eliquis, resume Eliquis when it is approved by GI [facility] GI consultation Hemoglobin is stable is trending up Colonoscopy showed small-sized internal hemorrhoid, diverticula without active bleeding 01/14 History of pulmonary embolism Recently diagnosed PE with high probability V/Q scan on anticoagulation was Off Eliquis due to active bleeding EGD colonoscopy performed by ANNY, Resume Eliquis on January 16. Stage IV non-small cell lung cancer He was also recently diagnosed with stage IV non-small cell lung cancer arising in a pleural based mass in the right mid to lower lobe with pleural effusion. 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 She also has Port-A-Cath placed on 12/22/2024 for treatment of adenocarcinoma of the lung. Patient follows with Dr. Lozano Patient wishes hospice care consulted heme oncologist for further evaluation and management about cancer. If further aggressive treatment following cancer will be futile, will transfer patient to hospice Appreciate heme oncologist consultation, they agree to transfer patient to hospice care based on patient's family request Moderate pulmonic regurgitation and right ventricular dilation by prior echocardiogram Moderate pulmonary hypertension grade 1 diastolic dysfunction on echo in December 2024 with an EF of 60 to 65% COPD and Chronic respiratory failure with hypoxia, on home oxygen therapy Hypertension Seasonal allergies Tension headache Depression Cervicalgia Low back pain Migraines Anxiety Anemia DVT prophylaxis SCDs Code status full code Patient wishes DNR DNI. code status was discussed with the patient in presents of patient's niece and patient's son over the phone 01/19: Per patient's family request, we have transferred patient to comfort care. preventive maintenance coordinator contact with hospice care team to see the patient today Subjective Date/time seen: 01/19/25 08:04 Interval history: I saw examined patient, patient feels pain is well controlled. Patient denies shortness breath at rest. Patient also denies abdomen pain nausea vomiting diarrhea or bloody stools. Patient had a bowel movement 2 days ago Exam Narrative: GENERAL: Ill-appearing, some pain distress. Well-nourished. - EYES: EOMI. Anicteric. - HENT: Moist mucous membranes. - LUNGS: Clear to auscultation bilaterally, no wheezing, rhonchi, or rales. Bilateral chest wall pain - CARDIOVASCULAR: Regular rate and rhythm. No murmur. No JVD. - ABDOMEN: Soft, non-tender and non-distended. No palpable masses. - EXTREMITIES: No edema. Peripheral pulses 2+. Non-tender. - NEUROLOGIC: No focal neurological deficits. CN II-XII grossly intact. - PSYCHIATRIC: Awake, Alert and oriented x 3. Anxious mood and affect. - SKIN: No rashes or lesions. Warm. - LYMPH: No cervical lymphadenopathy. Objective Data Vital Signs Vital Signs: Vital Signs - 24 hr 01/18/25 08:05 01/18/25 14:00 01/18/25 19:58 Temperature 97.7 F Pulse Rate 80 70 76 Respiratory Rate 20 16 Blood Pressure 176/69 H Pulse Oximetry 98 97 Oxygen Delivery Nasal Cannula Oxygen Flow Rate 3 Fraction of Inspired Oxygen 01/18/25 20:00 01/18/25 20:09 01/18/25 20:28 Temperature 98.0 F Pulse Rate 93 70 Respiratory Rate 18 20 Blood Pressure 177/73 H Pulse Oximetry 98 96 98 Oxygen Delivery Nasal Cannula Nasal Cannula Oxygen Flow Rate 3 3 Fraction of Inspired Oxygen 32 01/19/25 03:29 Temperature 98.1 F Pulse Rate 92 Respiratory Rate 18 Blood Pressure 120/57 L Pulse Oximetry 100 Oxygen Delivery Oxygen Flow Rate Fraction of Inspired Oxygen Intake/Output Intake/Output: Intake & Output 01/16/25 01/17/25 01/18/25 01/19/25 23:59 23:59 23:59 23:59 Intake Total 950 860 750 240 Output Total 550 300 Balance 400 560 750 240 Meds/Results Medications: Active Medications Generic Name Dose Route Start Last Admin Trade Name Freq PRN Reason Stop Dose Admin Hydrocodone Bitart/Acetaminophen 1 tab 01/12/25 08:35 01/19/25 04:37 Hydrocodone/Acetaminophen (*Crx) 5-325 Mg Tablet PO 1 tab Q6H PRN Administration pain 4-6 Albuterol 2 puff 01/12/25 08:35 01/18/25 07:12 Albuterol Sulfate (*Sp) Aerosol 1 Puff INHALATION 2 puff Q4-6H PRN Administration shortness of breath or wheezing Albuterol/Ipratropium 3 ml 01/12/25 08:35 01/14/25 14:10 Ipratropium 0.5 Mg/Albuterol Sulfate 2.5 Mg Ampul.Neb 3 Ml INHALATION 3 ml Q6HRT PRN Administration shortness of breath or wheezing Alprazolam 0.5 mg 01/12/25 08:35 01/18/25 19:59 Alprazolam (*Crx) 0.5 Mg Tablet PO 0.5 mg TID PRN Administration Anxiety Apixaban 5 mg 01/16/25 09:00 01/18/25 19:57 Apixaban 5 Mg Tablet PO 5 mg Q12HR MINGO Administration Cyclobenzaprine HCl 5 mg 01/12/25 08:35 01/19/25 04:38 Cyclobenzaprine Hcl 5 Mg Tablet PO 5 mg TID PRN Administration muscle spasm Ferrous Sulfate 142 mg 01/12/25 08:00 01/18/25 08:02 Ferrous Sulfate Dried 142 Mg Tabcr PO 142 mg DAILY@0800 IMNGO Administration Lisinopril 5 mg 01/13/25 22:20 01/18/25 08:02 Lisinopril 5 Mg Tablet PO 5 mg QAM MINGO Administration Metoprolol Tartrate 25 mg 01/13/25 22:20 01/18/25 19:58 Metoprolol Tartrate 25 Mg Tablet PO 25 mg Q12HR MINGO Administration Ondansetron HCl 4 mg 01/12/25 14:17 01/15/25 15:24 Ondansetron Hcl Odt 4 Mg Tablet PO 4 mg Q8H PRN Administration nausea and vomiting Oxycodone HCl 5 mg 01/12/25 14:17 01/18/25 22:53 Oxycodone Hcl (*Crx) 5 Mg Tab Ir PO 5 mg Q6H PRN Administration pain 7-10 Pantoprazole Sodium 40 mg 01/15/25 09:00 01/18/25 08:02 Pantoprazole 40 Mg Tablet PO 40 mg QAM MINGO Administration Radiology Results: ITS Impressions Chest/Abdomen/Pelvis CT 01/12/25 00:33 IMPRESSION: Unchanged masslike opacities in the peripheral right mid and lower lung, may represent infection or neoplastic disease. Cystitis versus bladder wall thickening from incomplete distention. Otherwise, no acute abdominopelvic process detected. Head CT 01/12/25 00:34 IMPRESSION: No acute intracranial process. Chest X-Ray 01/12/25 15:14 IMPRESSION: 1. Persistent patchy masslike opacities at the lateral right mid and lower lung zones which are suspicious for malignancy. 2. Blunting at the bilateral costophrenic angles suggesting small bilateral pleural effusions. 3. Increasing opacities at the lateral right lung base which could be due to pleural effusion, atelectasis or pneumonia. 4. Cardia megaly.
--- NOTE | 2025-01-19 08:06 | PM.DS ---
DS: Summary Time Spent with Patient Time attestation: Total time spent providing and/or coordinating discharge services: Discharge Plan Discharge Consulting providers: Carole Montana Patient Instructions: Apixaban (By mouth), Heart Failure (GEN), Blood Thinners (GEN) Patient Language: Surinamese Discharge Medications: No Action cyclobenzaprine 10 mg tablet 5 - 10 mg PO TID PRN (Reason: muscle spasm) Qty: 90 5RF lisinopril 5 mg tablet 5 mg PO DAILY Qty: 30 11RF Patient Comments: QAM omeprazole 40 mg capsule,delayed release(DR/EC) 40 mg PO DAILY Qty: 30 11RF metoprolol tartrate 25 mg tablet 25 mg PO BID Qty: 60 11RF lisinopril 5 mg Tablet 5 mg PO QAM Qty: 90 0RF (DME) nebulizer and compressor Device See Rx Instructions .Route Qty: 1 0RF Rx Instructions: As directed alprazolam 0.5 mg Tablet 0.5 mg PO TID PRN (Reason: Anxiety) Qty: 15 0RF Eliquis 5 mg tablet 5 mg PO BID Qty: 80 0RF Rx Instructions: Take TWO tabs (10mg total) twice daily for 7 total days. THEN take 1 tab (5mg total) twice daily for the next 5 weeks. hydrocodone-acetaminophen 5-325 mg tablet 1 tablet PO Q6H PRN (Reason: pain) ondansetron 4 mg tablet,disintegrating 4 mg PO Q8H PRN (Reason: nausea and vomiting) oxycodone 5 mg tablet 5 mg PO Q6H PRN (Reason: pain) ipratropium-albuterol 0.5 mg-3 mg(2.5 mg base)/3 mL Solution For Nebulization 3 ml inhalation Q6HRT PRN (Reason: shortness of breath or wheezing) Patient Comments: DOESN'T HAVE NEBULIZER MACHINE YET Slow Fe 137 mg (45 mg iron) tablet extended release 137 mg PO DAILY albuterol sulfate 90 mcg/actuation HFA aerosol inhaler 1 - 2 inh inhalation Q4-6H PRN (Reason: shortness of breath or wheezing) Qty: 8.5 0RF Date of admission: 01/13/25 10:06 Primary Care Provider: Jessie Mijares Admitting Provider: Shaila Tomas Attending physician on admission: Shaila Tomas Condition: Stable
[2025-01-19] MEDS: APIXABAN 5 MG TABLET PO ×2 (08:40→21:56)
[2025-01-19] MEDS: FERROUS SULFATE DRIED 142 MG TABCR PO (08:40)
[2025-01-19] MEDS: METOPROLOL TARTRATE 25 MG TABLET PO ×2 (08:40→21:56)
[2025-01-19] MEDS: PANTOPRAZOLE 40 MG TABLET PO (08:40)
[2025-01-19] MEDS: lisinopriL 5 MG TABLET PO (08:40)
[2025-01-19] MEDS: ALPRAZolam (*CRX) 0.5 MG TABLET PO ×2 (09:55→14:49)
[2025-01-19] MEDS: oxyCODONE HCL (*CRX) 5 MG TAB IR PO ×2 (09:55→16:57)
[2025-01-19] MEDS: SENNA/DOCUSATE SODIUM TABLET 1 TAB PO ×2 (11:30→16:52)
--- NOTE | 2025-01-19 11:58 | PCNWS ---
Weekly nutritional screen. Patient is currently on a regular diet with Ensure Enlive. Hospice referral ordered. Agree with diet orders. No nutritional needs at this time.
[2025-01-20] VITALS (7 sets, daily range): BP systolic 154–159; BP diastolic 58–66; PULSE 60–72; RESP 18; TEMP 36.5–36.6; O2SAT 95–100
[2025-01-20] MEDS: oxyCODONE HCL (*CRX) 5 MG TAB IR PO ×2 (03:34→16:06)
--- NOTE | 2025-01-20 07:58 | PM.IMPN ---
Progress Note: A&P Assessment and Plan (1) Congestive heart failure: Qualifiers: Heart failure type: diastolic Heart failure chronicity: chronic Qualified Code(s): I50.32 - Chronic diastolic (congestive) heart failure Code(s): I50.9 - Heart failure, unspecified Status: Acute Assessment and Plan: Is getting better. Continue current treatment monitor closely. Increase activity (2) Diastolic dysfunction: Code(s): I51.89 - Other ill-defined heart diseases Status: Acute Assessment and Plan: Stable on current medications. Will continue current treatment. (3) Hypertension: Code(s): I10 - Essential (primary) hypertension Status: Acute Assessment and Plan: Stable on current medications. Will continue current treatment. (4) Pulmonary embolism: Code(s): I26.99 - Other pulmonary embolism without acute cor pulmonale Status: Acute Assessment and Plan: Stable on current medications. Will continue current treatment. (5) Acute anemia: Code(s): D64.9 - Anemia, unspecified Status: Acute Assessment and Plan: Colon Exam negative. Hemoglobin stable. (6) Guaiac positive stools: Code(s): R19.5 - Other fecal abnormalities Status: Acute Assessment and Plan: GI following (7) Non-small cell carcinoma of right lung, stage 4: Onset Date: 11/2024 Code(s): C34.91 - Malignant neoplasm of unspecified part of right bronchus or lung Status: Acute Assessment and Plan: Stable (8) COPD (chronic obstructive pulmonary disease): Qualifiers: COPD type: unspecified COPD Qualified Code(s): J44.9 - Chronic obstructive pulmonary disease, unspecified Code(s): J44.9 - Chronic obstructive pulmonary disease, unspecified Status: Acute Assessment and Plan: Stable on current meds Plan Patient 69-year-old female who presents emergency department with chief complaint of syncopal episode. Patient has history of lung cancer and apparently has a new mass in her lung. The patient reports that she has not really been drinking over the last several days has been nauseated patient states that she got up to the bathroom had a syncopal episode patient was bradycardic and also hypotensive when EMS arrived. On ED arrival she was hypotensive with blood pressure of 70/38 pulse rate was 44 beats per minute oxygen saturation 89% on room air. Laboratory workup revealed hemoglobin of 5.9 FOBT was positive. Received IV fluid with improvement in blood pressure. CT scan of the head chest abdomen pelvis showed no acute abnormality. ABG 7.37/51/142/29. Patient was recently admitted earlier this month for concern for ST-elevation [place]. cardiac catheterization showed no obstructive coronary artery disease. However was found to have pulmonary embolism with high probability V/Q scan and was started on anticoagulation. She was started on Eliquis PE on 01/01/2025. Lower extremity venous duplex was negative for DVT. Recent echocardiogram with EF 60-65% LV grade 1 diastolic dysfunction mild MR and TR moderate TR moderate pulmonary hypertension Acute on chronic blood-loss anemia, acute GI bleeding Acute severe anemia needing transfusion patient is stable now. GI bleed with FOBT positive stool EGD recently with mild gastritis. Hold off Eliquis, resume Eliquis when it is approved by GI Appreciate GI consultation Hemoglobin is stable is trending up Colonoscopy showed small-sized internal hemorrhoid, diverticula without active bleeding 01/14 History of pulmonary embolism Recently diagnosed PE with high probability V/Q scan on anticoagulation was Off Eliquis due to active bleeding EGD colonoscopy performed by [facility], Resume Eliquis on January 16. Stage IV non-small cell lung cancer He was also recently diagnosed with stage IV non-small cell lung cancer arising in a pleural based mass in the right mid to lower lobe with pleural effusion. 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 She also has Port-A-Cath placed on 12/22/2024 for treatment of adenocarcinoma of the lung. Patient follows with Dr. Lozano Patient wishes hospice care consulted heme oncologist for further evaluation and management about cancer. If further aggressive treatment following cancer will be futile, will transfer patient to hospice Appreciate heme oncologist consultation, they agree to transfer patient to hospice care based on patient's family request Moderate pulmonic regurgitation and right ventricular dilation by prior echocardiogram Moderate pulmonary hypertension grade 1 diastolic dysfunction on echo in December 2024 with an EF of 60 to 65% COPD and Chronic respiratory failure with hypoxia, on home oxygen therapy Hypertension Seasonal allergies Tension headache Depression Cervicalgia Low back pain Migraines Anxiety Anemia DVT prophylaxis SCDs Code status full code Patient wishes DNR DNI. code status was discussed with the patient in presents of patient's niece and patient's son over the phone 01/19: Per patient's family request, we have transferred patient to comfort care. corporate safety coordinator contact with hospice care team to see the patient today 01/20: Continue comfort care, waiting for placement to senior care for hospice Subjective Date/time seen: 01/20/25 07:58 Interval history: I saw examined patient, patient feels pain is well controlled. Patient denies shortness breath at rest. Patient also denies abdomen pain nausea vomiting diarrhea or bloody stools. Exam Narrative: GENERAL: Ill-appearing, some pain distress. Well-nourished. - EYES: EOMI. Anicteric. - HENT: Moist mucous membranes. - LUNGS: Clear to auscultation bilaterally, no wheezing, rhonchi, or rales. Bilateral chest wall pain - CARDIOVASCULAR: Regular rate and rhythm. No murmur. No JVD. - ABDOMEN: Soft, non-tender and non-distended. No palpable masses. - EXTREMITIES: No edema. Peripheral pulses 2+. Non-tender. - NEUROLOGIC: No focal neurological deficits. CN II-XII grossly intact. - PSYCHIATRIC: Awake, Alert and oriented x 3. Anxious mood and affect. - SKIN: No rashes or lesions. Warm. - LYMPH: No cervical lymphadenopathy. Objective Data Vital Signs Vital Signs: Vital Signs - 24 hr 01/19/25 08:40 01/19/25 08:40 01/19/25 14:00 Temperature 98.2 F Pulse Rate 92 65 Respiratory Rate 18 18 Blood Pressure 153/64 H Pulse Oximetry 100 100 Oxygen Delivery Nasal Cannula Oxygen Flow Rate 3 Fraction of Inspired Oxygen 01/19/25 20:00 01/19/25 20:37 01/19/25 21:56 Temperature 97.7 F Pulse Rate 88 88 Respiratory Rate 18 Blood Pressure 167/69 H Pulse Oximetry 98 100 Oxygen Delivery Nasal Cannula Oxygen Flow Rate 3 Fraction of Inspired Oxygen 01/19/25 22:04 01/20/25 04:58 01/20/25 07:50 Temperature 97.8 F Pulse Rate 80 72 Respiratory Rate 20 18 Blood Pressure 154/66 H Pulse Oximetry 98 96 99 Oxygen Delivery Nasal Cannula Nasal Cannula Oxygen Flow Rate 3 3 Fraction of Inspired Oxygen 32 32 Intake/Output Intake/Output: Intake & Output 01/17/25 01/18/25 01/19/25 01/20/25 23:59 23:59 23:59 23:59 Intake Total 860 750 900 340 Output Total 300 Balance 560 750 900 340 Meds/Results Medications: Active Medications Generic Name Dose Route Start Last Admin Trade Name Freq PRN Reason Stop Dose Admin Hydrocodone Bitart/Acetaminophen 1 tab 01/12/25 08:35 01/19/25 11:30 Hydrocodone/Acetaminophen (*Crx) 5-325 Mg Tablet PO 1 tab Q6H PRN Administration pain 4-6 Albuterol 2 puff 01/12/25 08:35 01/18/25 07:12 Albuterol Sulfate (*Sp) Aerosol 1 Puff INHALATION 2 puff Q4-6H PRN Administration shortness of breath or wheezing Albuterol/Ipratropium 3 ml 01/12/25 08:35 01/14/25 14:10 Ipratropium 0.5 Mg/Albuterol Sulfate 2.5 Mg Ampul.Neb 3 Ml INHALATION 3 ml Q6HRT PRN Administration shortness of breath or wheezing Alprazolam 0.5 mg 01/12/25 08:35 01/19/25 14:49 Alprazolam (*Crx) 0.5 Mg Tablet PO 0.5 mg TID PRN Administration Anxiety Apixaban 5 mg 01/16/25 09:00 01/19/25 21:56 Apixaban 5 Mg Tablet PO 5 mg Q12HR MINGO Administration Cyclobenzaprine HCl 5 mg 01/12/25 08:35 01/19/25 16:56 Cyclobenzaprine Hcl 5 Mg Tablet PO 5 mg TID PRN Administration muscle spasm Ferrous Sulfate 142 mg 01/12/25 08:00 01/19/25 08:40 Ferrous Sulfate Dried 142 Mg Tabcr PO 142 mg DAILY@0800 MINGO Administration Lisinopril 5 mg 01/13/25 22:20 01/19/25 08:40 Lisinopril 5 Mg Tablet PO 5 mg QAM MINGO Administration Metoprolol Tartrate 25 mg 01/13/25 22:20 01/19/25 21:56 Metoprolol Tartrate 25 Mg Tablet PO 25 mg Q12HR MINGO Administration Ondansetron HCl 4 mg 01/12/25 14:17 01/15/25 15:24 Ondansetron Hcl Odt 4 Mg Tablet PO 4 mg Q8H PRN Administration nausea and vomiting Oxycodone HCl 5 mg 01/12/25 14:17 01/20/25 03:34 Oxycodone Hcl (*Crx) 5 Mg Tab Ir PO 5 mg Q6H PRN Administration pain 7-10 Pantoprazole Sodium 40 mg 01/15/25 09:00 01/19/25 08:40 Pantoprazole 40 Mg Tablet PO 40 mg QAM MINGO Administration Senna/Docusate Sodium 1 tab 01/19/25 11:05 01/19/25 16:52 Senna/Docusate Sodium Tablet PO 1 tab BID MINGO Administration Radiology Results: ITS Impressions Chest/Abdomen/Pelvis CT 01/12/25 00:33 IMPRESSION: Unchanged masslike opacities in the peripheral right mid and lower lung, may represent infection or neoplastic disease. Cystitis versus bladder wall thickening from incomplete distention. Otherwise, no acute abdominopelvic process detected. Head CT 01/12/25 00:34 IMPRESSION: No acute intracranial process. Chest X-Ray 01/12/25 15:14 IMPRESSION: 1. Persistent patchy masslike opacities at the lateral right mid and lower lung zones which are suspicious for malignancy. 2. Blunting at the bilateral costophrenic angles suggesting small bilateral pleural effusions. 3. Increasing opacities at the lateral right lung base which could be due to pleural effusion, atelectasis or pneumonia. 4. Cardia megaly.
--- NOTE | 2025-01-20 07:58 | PM.DS ---
DS: Admitting Diagnosis Discharge Date 01/20/25 Admitting Diagnosis (1) Congestive heart failure: Qualifiers: Heart failure type: diastolic Heart failure chronicity: chronic Qualified Code(s): I50.32 - Chronic diastolic (congestive) heart failure Code(s): I50.9 - Heart failure, unspecified Status: Acute Assessment and Plan: Is getting better. Continue current treatment monitor closely. Increase activity (2) Diastolic dysfunction: Code(s): I51.89 - Other ill-defined heart diseases Status: Acute Assessment and Plan: Stable on current medications. Will continue current treatment. (3) Hypertension: Code(s): I10 - Essential (primary) hypertension Status: Acute Assessment and Plan: Stable on current medications. Will continue current treatment. (4) Pulmonary embolism: Code(s): I26.99 - Other pulmonary embolism without acute cor pulmonale Status: Acute Assessment and Plan: Stable on current medications. Will continue current treatment. (5) Acute anemia: Code(s): D64.9 - Anemia, unspecified Status: Acute Assessment and Plan: Colon Exam negative. Hemoglobin stable. (6) Guaiac positive stools: Code(s): R19.5 - Other fecal abnormalities Status: Acute Assessment and Plan: GI following (7) Non-small cell carcinoma of right lung, stage 4: Onset Date: 11/2024 Code(s): C34.91 - Malignant neoplasm of unspecified part of right bronchus or lung Status: Acute Assessment and Plan: Stable (8) COPD (chronic obstructive pulmonary disease): Qualifiers: COPD type: unspecified COPD Qualified Code(s): J44.9 - Chronic obstructive pulmonary disease, unspecified Code(s): J44.9 - Chronic obstructive pulmonary disease, unspecified Status: Acute Assessment and Plan: Stable on current meds DS: Discharge Diagnosis Discharge Diagnosis (1) Congestive heart failure: Qualifiers: Heart failure type: diastolic Heart failure chronicity: chronic Qualified Code(s): I50.32 - Chronic diastolic (congestive) heart failure Code(s): I50.9 - Heart failure, unspecified Status: Acute Assessment and Plan: Is getting better. Continue current treatment monitor closely. Increase activity (2) Diastolic dysfunction: Code(s): I51.89 - Other ill-defined heart diseases Status: Acute Assessment and Plan: Stable on current medications. Will continue current treatment. (3) Hypertension: Code(s): I10 - Essential (primary) hypertension Status: Acute Assessment and Plan: Stable on current medications. Will continue current treatment. (4) Pulmonary embolism: Code(s): I26.99 - Other pulmonary embolism without acute cor pulmonale Status: Acute Assessment and Plan: Stable on current medications. Will continue current treatment. (5) Acute anemia: Code(s): D64.9 - Anemia, unspecified Status: Acute Assessment and Plan: Colon Exam negative. Hemoglobin stable. (6) Guaiac positive stools: Code(s): R19.5 - Other fecal abnormalities Status: Acute Assessment and Plan: GI following (7) Non-small cell carcinoma of right lung, stage 4: Onset Date: 11/2024 Code(s): C34.91 - Malignant neoplasm of unspecified part of right bronchus or lung Status: Acute Assessment and Plan: Stable (8) COPD (chronic obstructive pulmonary disease): Qualifiers: COPD type: unspecified COPD Qualified Code(s): J44.9 - Chronic obstructive pulmonary disease, unspecified Code(s): J44.9 - Chronic obstructive pulmonary disease, unspecified Status: Acute Assessment and Plan: Stable on current meds DS: Summary Hospital Course Hospital Course: Patient 69-year-old female who presents emergency department with chief complaint of syncopal episode. Patient has history of lung cancer and apparently has a new mass in her lung. The patient reports that she has not really been drinking over the last several days has been nauseated patient states that she got up to the bathroom had a syncopal episode patient was bradycardic and also hypotensive when EMS arrived. On ED arrival she was hypotensive with blood pressure of 70/38 pulse rate was 44 beats per minute oxygen saturation 89% on room air. Laboratory workup revealed hemoglobin of 5.9 FOBT was positive. Received IV fluid with improvement in blood pressure. CT scan of the head chest abdomen pelvis showed no acute abnormality. ABG 7.37/51/142/29. Patient was recently admitted earlier this month for concern for ST-elevation [place]. cardiac catheterization showed no obstructive coronary artery disease. However was found to have pulmonary embolism with high probability V/Q scan and was started on anticoagulation. She was started on Eliquis PE on 01/01/2025. Lower extremity venous duplex was negative for DVT. Recent echocardiogram with EF 60-65% LV grade 1 diastolic dysfunction mild MR and TR moderate TR moderate pulmonary hypertension Acute on chronic blood-loss anemia, acute GI bleeding Acute severe anemia needing transfusion patient is stable now. GI bleed with FOBT positive stool EGD recently with mild gastritis. Hold off Eliquis, resume Eliquis when it is approved by GI Appreciate GI consultation Hemoglobin is stable is trending up Colonoscopy showed small-sized internal hemorrhoid, diverticula without active bleeding 01/14 History of pulmonary embolism Recently diagnosed PE with high probability V/Q scan on anticoagulation was Off Eliquis due to active bleeding EGD colonoscopy performed by GI, Resume Eliquis on January 16. Stage IV non-small cell lung cancer He was also recently diagnosed with stage IV non-small cell lung cancer arising in a pleural based mass in the right mid to lower lobe with pleural effusion. 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 She also has Port-A-Cath placed on 12/22/2024 for treatment of adenocarcinoma of the lung. Patient follows with Dr. Lozano Patient wishes hospice care consulted heme oncologist for further evaluation and management about cancer. If further aggressive treatment following cancer will be futile, will transfer patient to hospice Appreciate heme oncologist consultation, they agree to transfer patient to hospice care based on patient's family request Moderate pulmonic regurgitation and right ventricular dilation by prior echocardiogram Moderate pulmonary hypertension grade 1 diastolic dysfunction on echo in December 2024 with an EF of 60 to 65% COPD and Chronic respiratory failure with hypoxia, on home oxygen therapy Hypertension Seasonal allergies Tension headache Depression Cervicalgia Low back pain Migraines Anxiety Anemia DVT prophylaxis SCDs Code status full code Patient wishes DNR DNI. code status was discussed with the patient in presents of patient's niece and patient's son over the phone 01/19: Per patient's family request, we have transferred patient to comfort care. marine operations coordinator contact with hospice care team to see the patient today 01/20: Continue comfort care, and discharge to [facility] for hospice Time Spent with Patient Time attestation: Total time spent providing and/or coordinating discharge services: Exam Narrative: GENERAL: Ill-appearing, some pain distress. Well-nourished. - EYES: EOMI. Anicteric. - HENT: Moist mucous membranes. - LUNGS: Clear to auscultation bilaterally, no wheezing, rhonchi, or rales. Bilateral chest wall pain - CARDIOVASCULAR: Regular rate and rhythm. No murmur. No JVD. - ABDOMEN: Soft, non-tender and non-distended. No palpable masses. - EXTREMITIES: No edema. Peripheral pulses 2+. Non-tender. - NEUROLOGIC: No focal neurological deficits. CN II-XII grossly intact. - PSYCHIATRIC: Awake, Alert and oriented x 3. Anxious mood and affect. - SKIN: No rashes or lesions. Warm. - LYMPH: No cervical lymphadenopathy. Discharge Plan Discharge Attending physician on discharge: Ariel Tan Consulting providers: Carole Montana; Tahira Wall; Myron Savage; Robinson Hammer; Angel Luis Hare; Daniel Henson; Erick Johnson; Rashad Lind; Kedar Keller Discharging Clinician: idalia Patient Disposition: Hospice - Medical Facility Activity: as tolerated Diet: as tolerated Patient Instructions: Apixaban (By mouth), Heart Failure (GEN), Blood Thinners (GEN) Patient Language: [place] Citizen Stand Alone Forms: General Discharge Information Discharge Medications: Continued cyclobenzaprine 10 mg tablet 5 - 10 mg PO TID PRN (Reason: muscle spasm) Qty: 90 5RF lisinopril 5 mg tablet 5 mg PO DAILY Qty: 30 11RF Patient Comments: QAM omeprazole 40 mg capsule,delayed release(DR/EC) 40 mg PO DAILY Qty: 30 11RF metoprolol tartrate 25 mg tablet 25 mg PO BID Qty: 60 11RF lisinopril 5 mg Tablet 5 mg PO QAM Qty: 90 0RF (DME) nebulizer and compressor Device See Rx Instructions .Route Qty: 1 0RF Rx Instructions: As directed alprazolam 0.5 mg Tablet 0.5 mg PO TID PRN (Reason: Anxiety) Qty: 15 0RF Eliquis 5 mg tablet 5 mg PO BID Qty: 80 0RF Rx Instructions: Take TWO tabs (10mg total) twice daily for 7 total days. THEN take 1 tab (5mg total) twice daily for the next 5 weeks. hydrocodone-acetaminophen 5-325 mg tablet 1 tablet PO Q6H PRN (Reason: pain) ondansetron 4 mg tablet,disintegrating 4 mg PO Q8H PRN (Reason: nausea and vomiting) oxycodone 5 mg tablet 5 mg PO Q6H PRN (Reason: pain) ipratropium-albuterol 0.5 mg-3 mg(2.5 mg base)/3 mL Solution For Nebulization 3 ml inhalation Q6HRT PRN (Reason: shortness of breath or wheezing) Patient Comments: DOESN'T HAVE NEBULIZER MACHINE YET Slow Fe 137 mg (45 mg iron) tablet extended release 137 mg PO DAILY albuterol sulfate 90 mcg/actuation HFA aerosol inhaler 1 - 2 inh inhalation Q4-6H PRN (Reason: shortness of breath or wheezing) Qty: 8.5 0RF Date of admission: 01/13/25 10:06 Primary Care Provider: Jessie Mijares Admitting Provider: Shaila Tomas Attending physician on admission: Ariel Tan Condition: Stable
[2025-01-20] MEDS: FERROUS SULFATE DRIED 142 MG TABCR PO (08:56)
[2025-01-20] MEDS: HYDROcodone/acetaminophen (*CRX) 5-325 MG TABLET 1 TAB PO ×2 (08:56→14:00)
[2025-01-20] MEDS: METOPROLOL TARTRATE 25 MG TABLET PO (08:57)
[2025-01-20] MEDS: PANTOPRAZOLE 40 MG TABLET PO (08:57)
[2025-01-20] MEDS: lisinopriL 5 MG TABLET PO (08:57)
[2025-01-20] MEDS: SENNA/DOCUSATE SODIUM TABLET 1 TAB PO (08:57)
[2025-01-20] MEDS: APIXABAN 5 MG TABLET PO (08:57)
[2025-01-20] MEDS: ALPRAZolam (*CRX) 0.5 MG TABLET PO (16:32)
== END 2025-01-20 17:33 | disposition hospice, inpatient (51) | DRG 812 ==
LOC: ANHED 01-12 01:10 → ANHIMU 01-12 01:23 → ANH2MED 01-14 17:38 → ANHIMU 01-21 14:10
PROVIDERS: Internal Medicine; Internal Medicine Gastroenterology; Admitting Provider General Practice; Emergency Provider Emergency Medicine; PCP Nurse Practitioner Family; Visit Provider Hospitalist
PROC: 0DJD8ZZ Inspection of Lower Intestinal Tract, Via Natural or Artificial Opening Endoscopic (ICD-10-PCS; CPT 45378; principal; 2025-01-14 15:00)
DX: D62 Acute posthemorrhagic anemia (principal); C34.2 Malignant neoplasm of middle lobe, bronchus or lung; I50.32 Chronic diastolic (congestive) heart failure; J96.11 Chronic respiratory failure with hypoxia; I11.0 Hypertensive heart disease with heart failure; I27.20 Pulmonary hypertension, unspecified; I95.9 Hypotension, unspecified; J44.9 Chronic obstructive pulmonary disease, unspecified; I10 Essential (primary) hypertension; K57.30 Diverticulosis of large intestine without perforation or abscess without bleeding; K64.8 Other hemorrhoids; M54.50 Low back pain, unspecified; M54.2 Cervicalgia; F32.A Depression, unspecified; F41.9 Anxiety disorder, unspecified; Z20.822 Contact with and (suspected) exposure to COVID-19; Z87.11 Personal history of peptic ulcer disease; Z99.81 Dependence on supplemental oxygen; Z95.2 Presence of prosthetic heart valve; Z87.891 Personal history of nicotine dependence; Z86.711 Personal history of pulmonary embolism; Z79.01 Long term (current) use of anticoagulants; Z51.5 Encounter for palliative care
CPT/HCPCS: 36415; 36430; 36600; 70450; 71045; 71250; 74176; 80048; 80053; 81003; 81025; 82805; 83605; 83690; 83735; 83880; 84145; 84484; 85014; 85018; 85025; 85027; 85610; 85730; 86850; 86900; 86901; 86923; 87040; 87637; 94640; 96361; 96375; 96376; 97161; 97166; 97530; 97535; 99285; A9270; G0378; J2470; J2704; J7030; J7040; J7050; J7120; P9016